=== PATIENT | male | born 1945 | race Asian ===

== ENCOUNTER 2019-06-02 12:32 | Emergency (ER) | payer MEDICARE, BC ==
[~2019-06-02] VITALS: Ht 170.2 cm; Wt 104.3 kg
--- NOTE | 2019-06-02 12:50 | NUR ---
ED Nurse Note: Pt walked in from home d/t mechanical fall on an escalator and hit his head. Pt says he did not lose consciousness before or after the fall. Family with patient. Pt ambulatory with cane with steady gait/ A+Ox4. Paramedics saw him at the scene and dressed his head wound, but his brought him to the ED to be checked out. Pt denies numbness or tingling. Respirations even and unlabored on room air. Vitals stable as documented.
[2019-06-02 13:15] VITALS: BP 159/68
--- NOTE | 2019-06-02 13:38 | Emergency Room Report ---
History of Present Illness General Chief Complaint: Head Injury Source: Patient, Family Member (Mary Flores NNahid P.A.) Present Illness HPI 73-year-old male with history of hypertension, diabetes, high cholesterol, on Plavix, presents with head injury onset 1130 this morning. He reports he lost balance coming down the escalator and fell backwards and sustained a small laceration to the back of his head. Bleeding controlled. Denies any LOC, vomiting, dizziness. Denies any pain at this time. Denies any other injuries. (Mary Flores N. P.A.) Allergies: Coded Allergies: No Known Allergies (Unverified , 06/02/19) Patient History Past Medical History: see triage record Reviewed Nursing Documentation: PMH: Agreed; PSxH: Agreed (Mary Flores N. P.A.) Nursing Documentation-PMH Past Medical History: No History, Except For Hx Hypertension: Yes Hx Diabetes: Yes - kidney issues (Mary Flores N. P.A.) Review of Systems All Other Systems: negative except mentioned in HPI (Mary Flores N. P.A.) Physical Exam Vital Signs Date Time Temp Pulse Resp B/P (MAP) Pulse Ox O2 Delivery O2 Flow Rate FiO2 06/02/19 12:43 98.2 83 20 159/68 (98) 97 Room Air Sp02 EP Interpretation: reviewed, normal General Appearance: normal inspection, well appearing, no apparent distress, alert, GCS 15, non-toxic Head: other - superficial 1.5 cm laceration to the occipital scalp, bleeding controlled, no foreign bodies Eyes: bilateral eye normal inspection, bilateral eye PERRL, bilateral eye EOMI Neck: normal inspection, full range of motion, supple, thyroid normal, no meningismus, no bony tend Respiratory: chest non-tender, lungs clear, normal breath sounds, no respiratory distress Cardiovascular #1: normal peripheral pulses, regular rate, rhythm Musculoskeletal: normal inspection, normal range of motion, no calf tenderness , gait/station normal, non-tender Neurologic: alert, motor strength/tone normal, junior analyst III-XII nml as tested, oriented x3, sensory intact, speech normal Psychiatric: judgement/insight normal, mood/affect normal Skin: no rash, normal color, warm/dry Lymphatic: no adenopathy (Bensoussan,Mary N. P.A.) Procedures Laceration/Wound Repair Laceration/Wound Repair : Consent: Verbal Wound Location: head Wound's Depth, Shape: superficial Wound Length (cm): 1 Wound Explored: clean Irrigated w/ Saline (ccs): 250 Betadine Prep?: Yes Anesthesia: Lidocaine w/ Epi Volume Anesthetic (ccs): 3 Wound Repaired With: umang Number of Sutures: 3 Patient Tolerated: Well Complications: None (Tin Pacheco MD) Medical Decision Making PA Attestation Dr. Pacheco is my supervising physician whom patient management and care has been discussed with. (Mary Flores N. P.A.) Diagnostic Impression: Primary Impression: Acute head injury Qualified Codes: S09.90XA - Unspecified injury of head, initial encounter Additional Impression: Laceration ER Course Pt. presents to the ED c/o head injury Ddx considered but are not limited to intracranial hemorrhage, hematoma, laceration, abrasion Vital signs: are WNL, pt. is afebrile H&PE are most consistent with laceration ORDERS: CT brain and C-spine normal ED INTERVENTIONS: Laceration irrigated and repaired with umang. DISCHARGE: At this time pt. is stable for d/c to home. Will provide printed patient care instructions, and any necessary prescriptions. Care plan and follow up instructions have been discussed with the patient prior to discharge. (Mary Flores N. P.A.) CT/MRI/US Diagnostic Results CT/MRI/US Diagnostic Results : Impression Head CT, interpreted by radiologist: No acute intracranial bleed, mass effect or edema. Mild atrophy of the brain. Nonspecific white matter hypoattenuation probably due to chronic small vessel disease. Left scalp contusion C-spine CT, interpreted by radiologist: No acute injury appreciated. Degenerative changes of cervical spine as described above. Atherosclerotic vascular disease (Mary Flores N. P.A.) Last Vital Signs Date Time Temp Pulse Resp B/P (MAP) Pulse Ox O2 Delivery O2 Flow Rate FiO2 06/02/19 13:15 98.2 85 20 159/68 97 Room Air (Mary Flores N. P.A.) Disposition: HOME, SELF-CARE Condition: Stable Referrals: [facility] Patient Instructions: Head Injury, Adult, [id number], Laceration Care, Adult , [id number] Additional Instructions: The patient was provided with discharge instructions, notified to follow-up with a primary care doctor and or specialist in the next 24-48 hours, and to return to the ED if they have worsening of their symptoms. Please note that this report is being documented using DRAGON technology. This can lead to erroneous entry secondary to incorrect interpretation by the dictating instrument. PLEASE HAVE STABLES REMOVED 06/12/2019 Mary Flores Jun 02, 2019 13:38 Tin Pacheco MD Jun 02, 2019 15:01
[2019-06-02] MEDS ORDERED: Tetanus-Diphtheria Toxoid IM ONE (13:45)
--- NOTE | 2019-06-02 14:11 | NUR ---
ED Nurse Note: Pt in CT
--- NOTE | 2019-06-02 14:41 | Diagnostic Imaging Report ---
Indication: Cervical trauma/pain. Technique: Continuous helical imaging of the cervical spine was obtained transaxially from the skull base to the upper thoracic spine. 2-D coronal and sagittal reformatted images were obtained. Automatic Exposure Control was utilized. Total Dose length Product (DLP): 608.[address] Dose Index Volume (CTDIvol): 20 mGy Comparison: None Findings: No acute fracture is identified. Multilevel uncovertebral and facet arthropathy demonstrated. This results in some narrowing of the neural foramen bilaterally which is seen at multiple levels. The most pronounced narrowing is at C5-6 and C6-7. These 2 levels also notable for moderate narrowing of intervertebral disc with circumferential endplate osteophytes. Alignment is normal. The bones are osteopenic. There is no soft tissue swelling. Moderate the calcification of both carotid and vertebral arteries noted throughout the neck. IMPRESSION: No acute injury appreciated. Degenerative changes of cervical spine as described above. Atherosclerotic vascular disease The CT scanner at [facility] is accredited by the [employer] and the scans are performed using dose optimization techniques as appropriate to a performed exam including Automatic Exposure control.
--- NOTE | 2019-06-02 14:42 | Diagnostic Imaging Report ---
Indication: Headache. Head trauma Technique: Contiguous 5 mm thick transaxial imaging of the head obtained in a Siemens Sensation [address] scanner. Soft tissue and bone windows generated. Automatic Exposure Control was utilized. Total Dose length Product (DLP): 1036.[address] Dose Index Volume (CTDIvol): 43 mGy Comparison: none Findings: There is mild prominence of the ventricles, basal cisterns, and cerebral sulci consistent with atrophy. Mild, nonspecific, white matter hypoattenuation is noted throughout the brain consistent with chronic small vessel disease. There is no midline shift, edema, acute hemorrhage, mass effect, or abnormal extra-axial fluid collections. Bones are unremarkable. There is soft tissue scalp swelling over the left posterior parietal region. Impression: No acute intracranial bleed, mass effect or edema. Mild atrophy of the brain. Nonspecific white matter hypoattenuation probably due to chronic small vessel disease. Left scalp contusion The CT scanner at [facility] is accredited by the [employer] and the scans are performed using dose optimization techniques as appropriate to a performed exam including Automatic Exposure control.
[2019-06-02 15:29] VITALS: BP 152/69
--- NOTE | 2019-06-02 15:29 | NUR ---
ER DISCHARGE NOTE: Patient is cleared to be discharged per ERMD, pt is aox4, on room air, with stable vital signs. pt was given dc instructions, pt was able to verbalize understanding, pt id bandremoved. pt is able to ambulate with steady gait using a cane. pt took all belongings.
== END 2019-06-02 15:29 | disposition home or self-care (01) ==
LOC: EMR 14:28
DX: S09.90XA Unspecified injury of head, initial encounter (principal); S01.01XA Laceration without foreign body of scalp, initial encounter; E11.9 Type 2 diabetes mellitus without complications; I10 Essential (primary) hypertension; E78.00 Pure hypercholesterolemia, unspecified; Z79.01 Long term (current) use of anticoagulants; W19.XXXA Unspecified fall, initial encounter; Y92.9 Unspecified place or not applicable; I70.90 Unspecified atherosclerosis; Z23 Encounter for immunization
CPT/HCPCS: 70450; 72125; 90471; 90714; 99284

== ENCOUNTER 2019-06-15 19:52 | Inpatient (IN) | payer MEDICARE, BC ==
[~2019-06-15] VITALS: Ht 165.1 cm; Wt 110.2 kg
[2019-06-15 19:55] VITALS: BP 112/82
--- NOTE | 2019-06-15 19:55 | NUR ---
ED Nurse Note: Pt brought into ED from home by CATHLEEN RA 68 for c/o weakness onset [employer]ETING [employer]. Per EMS, pt was hypotensive with BP of 86/55 on scene. IV access initiated in the field and pt given 250ml NS by LAFD. Pt also reports feeling dizzy. Pt is aaox4, breathing is fast and labored on RA at this time. Pt connected to compliance monitor and placed in gown. Pt BP is 112/82 upon compliance monitor placement. Will continue to monitor.
[2019-06-15] MEDS ORDERED: FOLIC ACID1 MG ORAL (19:56)
[2019-06-15] MEDS ORDERED: CLOPIDOGREL75 MG ORAL (19:56)
[2019-06-15] MEDS ORDERED: SIMVASTATIN5 MG ORAL (19:57)
[2019-06-15] MEDS ORDERED: CATAPRES0.2 MG ORAL (19:59)
[2019-06-15] MEDS ORDERED: LISINOPRIL20 MG ORAL (19:59)
[2019-06-15] MEDS ORDERED: ACARBOSE50 MG ORAL (19:59)
[2019-06-15] MEDS ORDERED: AMLODIPINE BESY10 MG ORAL (19:59)
--- NOTE | 2019-06-15 19:59 | Emergency Room Report ---
History of Present Illness General Chief Complaint: Generalized Weakness Source: Patient, EMS Present Illness HPI Patient brought by EMS. He has been having nausea vomiting and diarrhea for the last few days. He is a insulin-dependent diabetic on metformin also. He has been taking his Lantus. He denies abdominal pain at this time. Paramedics found him with blood pressure of 86 in the field. They gave him of 250 fluid bolus and his blood pressure opal to 125 systolic. His glucose was also 124. The diarrhea has been brown without any blood. He is never had this problem before. The patient smokes. He has heard himself wheezing. He denies productive cough. No fevers, chills, sore throat, chest pain, palpitations, dysuria, joint pain, rashes, depression, anxiety, visual changes, dizziness, headache. Patient with history of hypertension and diabetes on Plavix. Patient sustained head injury June 02 with laceration to scalp. There was no syncope. CT of the head and C-spine were performed. 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 Reviewed Nursing Documentation: PMH: Agreed; PSxH: Agreed Nursing Documentation-PMH Hx Hypertension: Yes Hx Diabetes: Yes Review of Systems All Other Systems: negative except mentioned in HPI Physical Exam Vital Signs Date Time Temp Pulse Resp B/P (MAP) Pulse Ox O2 Delivery O2 Flow Rate FiO2 06/15/19 19:44 98.2 120 16 123/35 (64) 98 Room Air Sp02 EP Interpretation: reviewed, normal General Appearance: mild distress, obese Eyes: bilateral eye normal inspection, bilateral eye PERRL, bilateral eye EOMI ENT: dry mucus membranes Neck: full range of motion, supple, no meningismus Respiratory: lungs clear, decreased breath sounds Cardiovascular #1: tachycardia, edema Cardiovascular #2: 2+ radial (R) Gastrointestinal: non tender, soft, no guarding, decreased bowel sounds, overweight Genitourinary: no CVA tenderness Musculoskeletal: back normal, normal range of motion, no calf tenderness Neurologic: alert, motor strength/tone normal, oriented - X2, sensory intact, speech normal Psychiatric: mood/affect normal Skin: warm/dry, other - Sallow Procedures Critical Care Time Critical Care Time Total Critical Care Time: 60 min bedside evaluation and treatment excludes procedures (EKG). Reason for critical care: Hypotension, sepsis, hypoxia, renal failure, pancreatitis, elevated troponin Possible complications: hypotension, hypertension, [place], shock, arrhythmias, metabolic acidosis, end organ damage, respiratory failure. Interventions: Breathing treatments, fluid resuscitation, repeat evaluations, discussion with family, discussion with admitting physician, aspirin, antibiotic administration Course: Patient presented with vomiting and diarrhea with hypotension in the field. Immediate evaluation for possible sepsis. Fluid resuscitation begun. Hypoxia addressed with breathing treatments and oxygen. Positive troponin treated with aspirin. Blood pressure dropped again and fluid bolus administered. Elevated lactic acid treated with remainder of 30 mill per kilogram bolus. Prior to her lab after chest x-ray obtain antibiotics begun to cover abdominal source. Sepsis reevaluation. Discussion with family. Discussion with admitting physician. Elevating level of care. CO2 monitoring begun. Consultations: nursing staff, EMS, family, respiratory therapy Performed by: Dr. Danielson Tolerated well condition = critical Medical Decision Making Diagnostic Impression: Primary Impression: Sepsis Qualified Codes: A41.9 - Sepsis, unspecified organism; R65.21 - Severe sepsis with septic shock; N17.9 - Acute kidney failure, unspecified Additional Impressions: Acute pancreatitis Qualified Codes: K85.90 - Acute pancreatitis without necrosis or infection, unspecified Renal failure Qualified Codes: N17.9 - Acute kidney failure, unspecified Transient hypotension Hypoxia Left upper quadrant abdominal mass Elevated troponin ER Course Diabetic patient presents with hypotension in the field with nausea vomiting diarrhea. Differential includes sepsis, diabetic ketoacidosis, gastritis, gastroenteritis, occult infection, pancreatitis amongst others. Evaluation with EKG, chest x-ray, abdomen film and labs. Treatment with IV hydration, Reglan and Benadryl. Patient is obviously volume depleted with dry mucous membranes. Oxygen saturation 88%. Lungs are clear. Oxygen begun. Breathing treatment ordered. Blood pressure 89. Bolus has not begun. Blood sugar 94 Tachypneic and tachycardic. Probably septic. Antibiotics ordered. CXR no infiltrate. 2039 labs still pending. Minimally elevated troponin. Low dose aspirin ordered. Lactic acid elevated. Antibiotics already ordered. Bolus infusing added for 30 ml/kg. Patient BP better. Discussed with family. Sepsis reevaluation. Patient demonstrates fluid responsive sepsis. Upgrade to ICU. Discussed with admitting physician. CO2 monitoring ordered. Patient improved. Less agitated. Good capillary refill. Heart rate improved. Abdomen still soft. CT recorded below. Laboratory Tests Test 06/15/19 19:53 06/15/19 20:05 06/15/19 21:48 06/15/19 23:05 Venous Blood pH 7.348 Venous Blood Partial Pressure CO2 35.6 Venous Blood Partial Pressure O2 < 45.3 Venous Blood HCO3 19.1 Venous Blood Total Carbon Dioxide 35.6 Venous Blood Base Excess -5.7 Venous Blood Carboxyhemoglobin 2.1 % (0.5-1.5) H Methemoglobin 0.5 White Blood Count 4.1 K/UL (4.8-10.8) L Red Blood Count 4.10 M/UL (4.70-6.10) L Hemoglobin 12.1 G/DL (14.2-18.0) L Hematocrit 35.0 % (42.0-52.0) L Mean Corpuscular Volume 85 FL (80-99) Mean Corpuscular Hemoglobin 29.5 PG (27.0-31.0) Mean Corpuscular Hemoglobin Concent 34.6 G/DL (32.0-36.0) Red Cell Distribution Width 12.7 % (11.6-14.8) Platelet Count 187 K/UL (150-450) Mean Platelet Volume 8.5 FL (6.5-10.1) Neutrophils (%) (Auto) % (45.0-75.0) Lymphocytes (%) (Auto) % (20.0-45.0) Monocytes (%) (Auto) % (1.0-10.0) Eosinophils (%) (Auto) % (0.0-3.0) Basophils (%) (Auto) % (0.0-2.0) Prothrombin Time 12.0 SEC (9.30-11.50) H Prothrombin Time INR 1.1 (0.9-1.1) Activated Partial Thromboplast Time 29 SEC (23-33) Sodium Level 141 MMOL/L (136-145) Potassium Level 3.1 MMOL/L (3.5-5.1) L Chloride Level 107 MMOL/L (98-107) Carbon Dioxide Level 18 MMOL/L (21-32) L Anion Gap 16 mmol/L (5-15) H Blood Urea Nitrogen 33 mg/dL (7-18) H Creatinine 2.1 MG/DL (0.55-1.30) H Estimate Glomerular Filtration Rate 31.1 mL/min (>60) Glucose Level 108 MG/DL (74-106) H Lactic Acid Level 3.70 mmol/L (0.4-2.0) H 3.60 mmol/L (0.66-2.22) H Calcium Level 8.0 MG/DL (8.5-10.1) L Magnesium Level 1.4 MG/DL (1.8-2.4) L Total Bilirubin 0.5 MG/DL (0.2-1.0) Aspartate Amino Transferase (AST) 22 U/L (15-37) Alanine Aminotransferase (ALT) 24 U/L (12-78) Alkaline Phosphatase 109 U/L (46-116) Total Creatine Kinase 198 U/L (26-308) Troponin I 0.065 ng/mL (0.000-0.056) Total Protein 5.9 G/DL (6.4-8.2) L Albumin 2.0 G/DL (3.4-5.0) L Globulin 3.9 g/dL Albumin/Globulin Ratio 0.5 (1.0-2.7) L Triglycerides Level 48 MG/DL (30-150) Lipase 1013 U/L (73-393) H Urine Color [place] Urine Appearance Cloudy Urine pH 5 (4.5-8.0) Urine Specific [place] 1.020 (1.005-1.035) Urine Protein 4+ (NEGATIVE) H Urine Glucose (UA) 1+ (NEGATIVE) H Urine Ketones Negative (NEGATIVE) Urine Blood 4+ (NEGATIVE) H Urine Nitrite Negative (NEGATIVE) Urine Bilirubin Negative (NEGATIVE) Urine Ictotest Negative (NEGATIVE) Urine Urobilinogen Normal MG/DL (0.0-1.0) Urine Leukocyte Esterase 1+ (NEGATIVE) H Urine RBC 20-30 /HPF (0 - 0) H Urine WBC 5-10 /HPF (0 - 0) H Urine Squamous Epithelial Cells Few /LPF (NONE/OCC) Urine Amorphous Sediment Many /LPF (NONE) H Urine Bacteria Many /HPF (NONE) H Urine Granular Casts 0-2 /LPF (NONE) H Urine Random Sodium 33 mmol/L (20-110) Urine Creatinine 130.1 MG/DL (30.0-125.0) H EKG Diagnostic Results Rate: tachycardiac Rhythm: NSR ST Segments: no acute changes - Left axis deviation right bundle branch block LVH PVC nonspecific ST-T wave changes rate 124 Rhythm Strip Diag. Results EP Interpretation: yes Rhythm: other - Rate 124, sinus tachycardia with PVCs Chest X-Ray Diagnostic Results Chest X-Ray Diagnostic Results : Chest X-Ray Ordered: Yes # of Views/Limited/Complete: 1 View Indication: Other EP Interpretation: Yes Interpretation: no consolidation, no effusion, no pneumothorax Impression: No acute disease Electronically Signed by: Electronically signed by Paul Danielson MD CT/MRI/US Diagnostic Results CT/MRI/US Diagnostic Results : Imaging Test Ordered: Abdomen pelvis Impression There is a large cystic mass measuring 11 cm in the left upper quadrant. This may be arising from the stomach or the distal pancreas. Recommend characterization with contrast-enhanced CT or MRI for better characterization. Appears to be a neoplastic process. Mildly distended loops of proximal small bowel containing oral contrast. Diffusely fluid-filled large bowel. Correlate with ileus versus developing partial small bowel obstruction. Umbilical hernia containing a short segment of the small bowel without causing obstruction. No hydronephrosis or nephrolithiasis. Severe bladder wall thickening, correlate with cystitis versus under distention. Last Vital Signs Date Time Temp Pulse Resp B/P (MAP) Pulse Ox O2 Delivery O2 Flow Rate FiO2 06/16/19 00:05 98.5 114 25 117/63 95 Nasal Cannula 2.0 28 Status: improved Disposition: ADMITTED INPATIENT Condition: Critical Paul Danielson MD Jun 15, 2019 19:59
[2019-06-15 20:00] VITALS: BP 112/82
[2019-06-15] MEDS ORDERED: METFORMIN HCL500 M1 ORAL (20:00)
[2019-06-15] MEDS ORDERED: Omnipaque-300 100ml vial INJ PRN (20:00)
[2019-06-15] MEDS ORDERED: BAYER CHEWABLE81 MG PO (20:00)
[2019-06-15] MEDS ORDERED: LANTUS SOL100 UNIT/1 SUBQ (20:00)
[2019-06-15] MEDS ORDERED: DiphenhydrAMINE 50mg/ml Inj IVP ONE (20:00)
[2019-06-15] MEDS ORDERED: Metoclopramide 10mg/2ml Inj IVP ONE (20:00)
--- NOTE | 2019-06-15 20:00 | NUR ---
ED Nurse Note: Pt oxygen saturation dropped to 87% on RA. ERMD aware and placed pt on 2L oxygen via NC.
[2019-06-15] MEDS ORDERED: Solu-MEDROL 125mg Inj IVP ONE (20:15)
[2019-06-15] MEDS ORDERED: Albuterol/Ipratropium 3ml neb HHN ONE (20:15)
[2019-06-15 20:32] LABS: INR 1.1 (0.9-1.1)
--- NOTE | 2019-06-15 20:35 | NUR ---
ED Nurse Note: Pt is tachypenic with RR of 27, oxygen saturation is 97% on 2L via NC. ERMD bedside and aware. RT bedside to initiate breathing treatment, will continue to monitor. Pt states that his legs hurt and are bothering him.
[2019-06-15 20:45] VITALS: BP 133/74
[2019-06-15] MEDS ORDERED: Cefepime HCl 1 GM in D5W 55 ML IVPB ONE (20:45)
[2019-06-15 20:52] LABS: HEMOGLOBIN 12.1 G/DL (14.2-18.0); MEAN CORPUSCULAR VOLUME 85 FL (80-99); PLATELET COUNT 187 K/UL (150-450); RED CELL DISTRIBUTION WIDTH 12.7 % (11.6-14.8); WHITE BLOOD COUNT 4.1 K/UL (4.8-10.8)
[2019-06-15 20:54] LABS: ANION GAP 16 mmol/L (5-15); BLOOD UREA NITROGEN 33 mg/dL (7-18); CARBON DIOXIDE 18 MMOL/L (21-32); CHLORIDE 107 MMOL/L (98-107); CREATININE 2.1 MG/DL (0.55-1.30); POTASSIUM 3.1 MMOL/L (3.5-5.1); SODIUM 141 MMOL/L (136-145)
[2019-06-15 20:59] LABS: ALANINE AMINOTRANSFERASE 24 U/L (12-78); ALBUMIN/GLOBULIN RATIO 0.5 (1.0-2.7); ALKALINE PHOSPHATASE 109 U/L (46-116); ASPARTATE AMINO TRANSFERASE 22 U/L (15-37); BILIRUBIN,TOTAL 0.5 MG/DL (0.2-1.0); CREATINE KINASE 198 U/L (26-308)
[2019-06-15] MEDS ORDERED: Aspirin Baby 81mg ORAL ONE (21:30)
[2019-06-15 22:09] LABS: APPEARANCE,URINE CLOUDY; BILIRUBIN, URINE NEGATIVE (NEGATIVE); COLOR,URINE AMBER; GLUCOSE, URINE (UA) 1+ (NEGATIVE); KETONES,URINE NEGATIVE (NEGATIVE); LEUKOCYTE ESTERASE ,URINE 1+ (NEGATIVE); NITRITE,URINE NEGATIVE (NEGATIVE); PH,URINE 5 (4.5-8.0); PROTEIN,URINE 4+ (NEGATIVE); UROBILINOGEN,URINE NORMAL MG/DL (0.0-1.0)
[2019-06-15] MEDS ORDERED: Sodium Chloride 3,100 ML IVLG ONE (22:15)
[2019-06-15 22:30] VITALS: BP 125/63
--- NOTE | 2019-06-15 22:30 | NUR ---
ED Nurse Note: Pt sleeping at this time. No acute distress noted. Pt breathing is unlabored at this time. Will continue to monitor. ERMD aware of vital signs as charted.
[2019-06-15] MEDS ORDERED: Milk of Magnesia 30ml Ud ORAL PRN (22:45)
--- NOTE | 2019-06-15 23:38 | Diagnostic Imaging Report ---
Indication: Abdominal pain and vomiting Technique: Spiral acquisitions obtained through the abdomen and pelvis. Patient given oral contrast. No IV contrast utilized, per referring physician request.. Multiplanar reconstructions were generated. Total dose length product 773 mGycm. CTDIvol(s) third mGy. Dose reduction achieved using automated exposure control Comparison: None Findings: There is a large somewhat thick-walled unilocular cystic mass in the left upper quadrant, appearing to be arising from the tail of pancreas. This measures 12 cm in diameter. It is also adjacent and contiguous with the greater curvature the stomach. The pancreas itself appears atrophic. Calcifications within the pancreas appear to be calcifications of the splenic artery. The appendix is normal. There are colonic diverticula. No evidence of diverticulitis. Proximal small bowel loops are somewhat prominent in caliber, and contrast has only traversed a small portion of the small bowel. There is a small ventral hernia which contains a small loop of small bowel. No definite change in small bowel caliber appears to be present related to the hernia. No free or loculated intraperitoneal gas or fluid is evident. Distal esophagus demonstrates mild wall thickening and possibly a small hiatal hernia. The stomach and duodenum are unremarkable other than the findings reported above. Lack of IV contrast limits assessment of the solid organs. The gallbladder has been removed. The liver, spleen, adrenals are unremarkable. The right kidney demonstrates multiple fluid attenuation cysts. Both kidneys demonstrate considerable perinephric fat stranding. No renal or ureteral calculi, hydronephrosis, or hydroureter. The bladder is under distended. Wall appears mildly thickened, probably artifact of under distention. The prostate is unremarkable. No pelvic mass or adenopathy. The bones are unremarkable. The included lung bases demonstrate considerable interstitial and airspace consolidation. The heart is enlarged. Impression: Unilocular left upper quadrant cystic mass adjacent to the tail of pancreas and the greater curvature of the stomach. Favor pancreatic pseudocyst, particularly in view of evidence of pancreatic atrophy. However, cystic neoplasm of pancreatic, gastric, or other origin also possible. Consider contrast MRI for better characterization Small ventral hernia containing a single small loop of small bowel, no definite obstruction or strangulation related to such Mildly distended proximal small bowel with slow forward transit of ingested contrast. Suspect ileus or enteritis, although early/partial small bowel obstruction also possible. Correlate with clinical findings Mild distal soft tissue wall thickening, esophagitis possible. Correlate with clinical findings Bilateral basilar pulmonary parenchymal infiltrates versus edema, fairly extensive Cardiomegaly. Apparent bladder wall thickening. Probably an artifact of lack of distention, but cystitis also possible Nonspecific bilateral perinephric fat stranding. Suspect chronic although acute renal inflammation also possible Other findings as noted, including colonic diverticulosis, no evidence of prior cholecystectomy This essentially agrees with the preliminary interpretation provided overnight by [facility] teleradiology service, with some minor variation. The CT scanner at [facility] is accredited by the [employer] and the scans are performed using protocols designed to limit radiation exposure to as low as reasonably achievable to attain images of sufficient resolution adequate for diagnostic evaluation.
--- NOTE | 2019-06-15 23:50 | NUR ---
ED Nurse Note: Report given to GANGA Fritz.
[2019-06-16] VITALS (26 sets, daily range): BP systolic 77–125; BP diastolic 44–79
--- NOTE | 2019-06-16 00:05 | NUR ---
ED Nurse Note: Pt stable for transfer to unit at this time per ERMD. Pt is aaox4, breathing is normal and unlabored, oxygen saturation is 95% on 2L oxygen via NC. No acute distress noted. Pt speaking in full sentences. Vital signs stable for patient as charted, ERMD aware. IV on L AC is patent and intact. Pt taken to unit via gurney by RN and petey, connected to hall monitor. Pt belongings sent with pt.
--- NOTE | 2019-06-16 00:10 | NUR ---
NURSE NOTES: Received reported from GANGA Leger. Pt admitted from ER. Pt is awake and alert and forgetful. On O2 2L via nasal cannula and SaO2 95% noted. HR: 115's, BP: 123/68mmHg. IV site intact and no sign of infiltration noted. Applied pals specialist and noted ST. Cleaned Pt and applied lotion and cream. Checked belongings. Given admission instruction. Skin is intact except hyperpigmentation on Rt. hip area. Denied pain at this time. Placed fall precaution. Will continue to care plan. Dr. Whitman aware Pt's lab result with K: 3.1, M.4 troponin: 0.065, Lactic acid: 3.7. Get new order received from Dr. Whitman and will carried out. Repositioned Pt and applied condom cath. Placed fall precaution. Will continue to care plan.
--- NOTE | 2019-06-16 00:19 | Pulmonolgy Critical Care Note ---
Critical Care - Asmt/Plan Assessment/Plan: Pulmonary CCM Consultation HPI Patient is a 73 year old man admitted complaining of dizziness, has had nausea/ vomiting and diarrhea for the last few days. He is a insulin-dependent diabetic on metformin, Lantus. He denies chest/abdominal pain. Noted to be hypotensive by paramedics, his glucose was also 124. Had evidence of UTI, Pancreatitis in the ED, BP responded to IVF 30 ml/Kg The patient smokes. 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 He denies productive cough, no fevers. 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 All Other Systems: negative except mentioned in HPI, no travel history Physical Exam Vital Signs Noted Date Time Temp Pulse Resp B/P (MAP) Pulse Ox O2 Delivery O2 Flow Rate FiO2 06/15/19 19:44 98.2 120 16 123/35 (64) 98 Room Air General: Obese, Alert interactive, no distress HENT: dry mucus membranes, no LN, no mass Chest: CTAB Heart: HS1, HS2, RRR Abdomen: Obese, soft, NT Extremities: Well perfused, no edema, no rash 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: Orientated x 4, no focal signs Impression: UTI GNR Sepsis Bibasilar atelectasis Hypoxic Respiratory Failure Acute pancreatitis Recent Diarrhea,N/V Large cystic pancreatic mass Chronic renal insufficiency Hypotension, responsive to fluids initially Lactic Acidosis improving Elevated Troponin Hypoxia Type 2 Insulin requiring Diabetes H/o Hypertension Previous Cholecystectomy Plan IVF - maintenance and PRN,received 30ml/Kg NS Central line Pressors PRN Supplement K/Mg IV Antibiotics Await cultures ISS Q6 Oxygen BiPAP PRN Breathing treatments PRN PPX Serial Troponin Echocardiogram ASA Abdominal US Trend Lactate NPO Will need GI referral, investigation of Pancreatic mass Will need Cardiology referral - elevated Troponin, Hypotension Will need Renal referral - ZARINA on background of CKD Consider ID referral - UTI/sepsis EKG: Rate: tachycardiac Rhythm: NSR ST Segments: no acute changes - Left axis deviation right bundle branch block LVH PVC nonspecific ST-T wave changes rate 124 CXR: Impression: Basilar atelectasis Note that there is extensive parenchymal changes demonstrated on subsequent CT scan are much less apparent on plain radiograph CT Abdomen: CT ABDOMEN + PELVIS With Contrast: There is a large cystic mass measuring 11 cm in the left upper quadrant. This may be arising from the stomach or the distal pancreas. Recommend characterization with contrast-enhanced CT or MRI for better characterization. Appears to be a neoplastic process. Mildly distended loops of proximal small bowel containing oral contrast. Diffusely fluid-filled large bowel. Correlate with ileus versus developing partial small bowel obstruction. Umbilical hernia containing a short segment of the small bowel without causing obstruction. No hydronephrosis or nephrolithiasis. Severe bladder wall thickening, correlate with cystitis versus under distention. ICU time 75 minutes, 45 minutes care co-ordination Critical Care - Objective Last 24 Hour Vital Signs Date Time Temp Pulse Resp B/P (MAP) Pulse Ox O2 Delivery O2 Flow Rate FiO2 06/15/19 22:57 95 Nasal Cannula 2.0 28 06/15/19 22:30 98.2 111 24 125/63 92 Nasal Cannula 2.0 28 06/15/19 20:45 98.2 135 23 133/74 99 Nasal Cannula 2.0 28 06/15/19 20:38 120 24 98 Nasal Cannula 2.0 28 114 24 95 06/15/19 20:00 98.2 125 25 112/82 87 Nasal Cannula 2.0 06/15/19 19:55 98.2 125 16 112/82 98 Room Air 06/15/19 19:44 98.2 120 16 123/35 (64) 98 Room Air Accucheck: 95 Critical Care - Subjective ROS Limited/Unobtainable: No Condition: critical IV Access: peripheral EKG Rhythm: Sinus Tachycardia FI02: 28 Sputum Amount: None I&O: Intake and Output 06/15/19 06/16/19 19:00 07:00 Intake Total 50 ml Output Total 200 ml Balance -150 ml Intake Oral 50 ml Output Urine Total 200 ml Paul Whitman MD Jun 16, 2019 00:19
[2019-06-16] MEDS ORDERED: Albuterol/Ipratropium 3ml neb HHN PRN (01:00)
[2019-06-16] MEDS ORDERED: D5NS 1,000 ML IV ONE (01:00)
--- NOTE | 2019-06-16 02:00 | NUR ---
NURSE NOTES: Pt is sleeping on the bed and no sign of acute distress noted. V/S stable. SaO2 97% with O2 4L via nasal cannula. Repositioned. Pt. removed condom cath. Reapplied condom cath and remind Pt do not remove condom cath and Pt verbally understand at this time. Placed fall precaution. Will continue to monitor any change of condition.
--- NOTE | 2019-06-16 03:08 | NUR ---
NURSE NOTES: Pt is resting on the bed and awake and slight agitated and noted SOB with tachypnea. On O2 4L via nasal cannuala and Sao2 90% noted. RT applied venturi mask FiO2 40% 8L and SaO2 95% noted. Denied pain at this time. Placed fall precaution. Will continue to monitor any change of condition.
--- NOTE | 2019-06-16 04:32 | NUR ---
NURSE NOTES: Pt is resting on the bed and awake and confused and agitated. Noted tachypnea; 34/min and Desaturated 86% with Venturi mask FiO2 50%. Collected and ABG. Awaiting result. Will continue to monitor any change of condition.
--- NOTE | 2019-06-16 04:47 | NUR ---
NURSE NOTES: Pt is resting on the bed and awake and forgetful and agitated. Pt has on Veturi mask FiO2 50%. Get ABG result and notified to Dr. Whitman and get new order received with BIPAP.
[2019-06-16] MEDS ORDERED: Ipratropium 0.02% Inh Soln 2.5ml UD HHN PRN (04:50)
[2019-06-16] MEDS: Hydromorphone 0.5mg/0.5ml inj IVP PRN ×2 (04:56→12:17)
--- NOTE | 2019-06-16 04:57 | NUR ---
RESPIRATORY NOTE: Pt placed on BiPAP post ABG draw d/t SOB/desaturation. Pt now on BiPAP /, backup rate 14, 50%. Pt on a Facial mask, skin intact, no redness/breakdowns noted. Foam tape applied on pt's nosebridge/cheeks/chin to prevent pt from self-extubation. Pt is alert/awake, follows commands. B/S joe. clear/diminished, nonproductive, dry, cough. BiPAP plugged into red outlet, alarms on & audible. Pt now comfortable, tolerating well. Will continue to monitor pt. Addendum: 06/18/19 at 2328 by RUTH ANN FRANCO RT *Foam tape applied on pt's nosebridge/cheeks/chin to prevent pt from mask irritations.
[2019-06-16] MEDS: NovoLOG Insulin Flexpen SUBQ SCH ×3 (06:00→18:00)
[2019-06-16] MEDS ORDERED: NovoLOG Insulin Flexpen SUBQ SCH (06:30)
[2019-06-16 06:34] LABS: HEMATOCRIT 33.3 % (42.0-52.0); HEMOGLOBIN 11.4 G/DL (14.2-18.0); MEAN CORPUSCULAR VOLUME 87 FL (80-99); PLATELET COUNT 134 K/UL (150-450); RED BLOOD COUNT 3.83 M/UL (4.70-6.10); RED CELL DISTRIBUTION WIDTH 12.9 % (11.6-14.8); WHITE BLOOD COUNT 18.8 K/UL (4.8-10.8)
--- NOTE | 2019-06-16 06:38 | NUR ---
NURSE NOTES: Noted BP 77/51mmHg. On running with D5wNS @ 50cc/hr. Pt is awake and confused but able to verbal response. On BiPAP 12/5 FiO2 50% and SaO2 100% noted. Denied pain at this time. Notified to Dr. Whitman and new order received. Will continue to monitor any change of condition.
[2019-06-16 06:53] LABS: ALANINE AMINOTRANSFERASE 42 U/L (12-78); ALBUMIN 1.8 G/DL (3.4-5.0); ALKALINE PHOSPHATASE 61 U/L (46-116); ANION GAP 13 mmol/L (5-15); ASPARTATE AMINO TRANSFERASE 129 U/L (15-37); BILIRUBIN,DIRECT 0.2 MG/DL (0.0-0.3); BILIRUBIN,TOTAL 0.5 MG/DL (0.2-1.0); BLOOD UREA NITROGEN 36 mg/dL (7-18); CALCIUM 7.5 MG/DL (8.5-10.1); CARBON DIOXIDE 21 MMOL/L (21-32); CHLORIDE 108 MMOL/L (98-107); CREATININE 2.5 MG/DL (0.55-1.30); POTASSIUM 3.5 MMOL/L (3.5-5.1); SODIUM 142 MMOL/L (136-145)
--- NOTE | 2019-06-16 07:30 | NUR ---
HAND-OFF: Report given to GANGA Moore. Pt is resting on the bed and on BIPAP and SaO2 100% noted. Dr. Graf visited and assessed Pt. On running with D5wNS @ 50cc, N/S @100cc and Albumin 25% @ 50cc/hr running. Endorsed incoming nurse regarding PICC insertion and Neosynephrine drip and verbally understand.
--- NOTE | 2019-06-16 07:31 | NUR ---
NURSE NOTES: Received patient from GANGA Fritz. Patient alert to name and place but confused to time and purpose. Patient restless and moving around in the bed in an effort to get more comfortable. Patient denies distress at this time. Patient on BiPAP 12/5 with 50% FiO2. Patient tolerating with no distress and SPO2 100% and high RR of 30. Patient NPO. Patient has order for contreras but is incontinent at this time. Patient has left hand 20 gauge peripheral IV, left AC 20 gauge peripheral IV. Both patent, asymptomatic, and flushed at this time. Patient has D5NS at 50mL/hr and normal saline running at 100mL/hr. Patient has an order for PICC line insertion as patient blood pressure was in the 80s systolic overnight. NO consent signed at this time. Patient blood pressure within normal limits. Will monitor and administer phenylephrine per order if necessary. Patient Troponin elevated. Will continue to monitor and notify MD. Patient Lactic tranding down. Will continue to order lab draws per protocol until lactic below 2. Patient has several tests ordered for this morning. Will follow up. Bed in low position with bed alarm on and call light in reach. Patient repositioned and oral care done. Will continue to monitor, insert contreras, follow up with ultrasound, follow up with PICC line team, get consent for PICC line from of patient.
--- NOTE | 2019-06-16 08:00 | NUR ---
NURSE NOTES: Notified Dr Graf regarding Troponin result of 0.348. No new orders received.
[2019-06-16] MEDS: Phenylephrine 50 MG in D5W 245 ML IV SCH (08:30)
[2019-06-16] MEDS: Aspirin Baby 81mg NG SCH (08:59)
[2019-06-16] MEDS: Docusate 100mg cap ORAL SCH ×2 (09:00→21:00)
[2019-06-16] MEDS: Pantoprazole Inj IVP SCH (09:00)
[2019-06-16] MEDS ORDERED: Cefepime HCl 1 GM in D5W 55 ML IVPB SCH (09:00)
[2019-06-16] MEDS ORDERED: Heparin 5000 units/ml inj SUBQ SCH (09:00)
--- NOTE | 2019-06-16 09:42 | Diagnostic Imaging Report ---
Indication: Abdominal pain Technique: Supine view of the abdomen Comparison: none Findings: Bowel gas pattern is unremarkable. No masses or unusual calcifications. There is parenchymal disease at the lung bases. There are degenerative changes of the lumbar spine. Impression: No acute process
--- NOTE | 2019-06-16 09:44 | Diagnostic Imaging Report ---
Indication: Chest pain Technique: One view of the chest Comparison: none Findings: Inspiration is suboptimal. The heart is enlarged. There are bilateral basilar atelectatic changes. There are degenerative changes the right shoulder Impression: Basilar atelectasis Note that there is extensive parenchymal changes demonstrated on subsequent CT scan are much less apparent on plain radiograph
--- NOTE | 2019-06-16 11:01 | NUR ---
NURSE NOTES: Notified Dr Whitman regarding ABG result via telephone call. Received order for repeat ABG at 1400, blood culture, urine culture, venous duplex, heparin 5000units SQ Q 12 hours, discontinue duo-neb respiratory treatment, and continue normal saline IV fluid for 6 more hours. All orders read back, verified, and placed.
--- NOTE | 2019-06-16 11:07 | Consultation ---
History of Present Illness General Date patient seen: Jun 16, 2019 Chief Complaint: Generalized Weakness Present Illness HPI This is a 73 year old male with past medical history signficant for insulin dependent DM, hypertension, possible CVA on plavix brought by EMS with chief nausea vomiting and diarrhea for the last few days. Paramedics found him with blood pressure of 86 in the field. They gave him of 250 fluid bolus and his blood pressure opal to 125 systolic. His glucose was also 124. The diarrhea has been brown without any blood. He is never had this problem before.The patient smokes. He has heard himself wheezing. He denies productive cough. patient seen and examined in the ICU. he is currently on bipap. Further history limited due to clinical condition. Allergies: Coded Allergies: No Known Allergies (Unverified , 06/02/19) Medication History Scheduled Acarbose* (Precose*), 50 MG ORAL THREE TIMES A DAY, (Reported) Amlodipine Besylate* (Amlodipine Besylate*), 10 MG ORAL DAILY, (Reported) Clonidine Hcl* (Catapres*), 0.2 MG ORAL Q6HR, (Reported) Clopidogrel* (Clopidogrel*), 75 MG ORAL DAILY, (Reported) Folic Acid* (Folic Acid*), 1 MG ORAL DAILY, (Reported) Insulin Glargine (Lantus), 0 SUBQ BEDTIME, (Reported) Lisinopril (Lisinopril*), 40 MG ORAL DAILY, (Reported) Metformin Hcl* (Metformin Hcl*), 500 MG ORAL TWICE A DAY, (Reported) Simvastatin (Zocor), 5 MG ORAL BEDTIME, (Reported) Miscellaneous Medications Aspirin (Court Chewable), 81 MG PO, (Reported) Patient History Healthcare decision maker Resuscitation status Full Code Advanced Directive on File Physical Exam General Appearance: lethargic, other - on bipap Lines, tubes and drains: peripheral HEENT: normocephalic, atraumatic Neck: non-tender, normal alignment Respiratory/Chest: chest wall non-tender, lungs clear, normal breath sounds Cardiovascular/Chest: normal rate, regular rhythm Abdomen: normal bowel sounds, non tender, soft Extremities: non-tender, normal inspection Skin Exam: normal pigmentation, no diaphoresis Last 24 Hour Vital Signs Date Time Temp Pulse Resp B/P (MAP) Pulse Ox O2 Delivery O2 Flow Rate FiO2 06/16/19 08:55 117 36 94 50 06/16/19 08:30 114 129/53 06/16/19 07:23 106 13 100 Bi-Pap 50 06/16/19 07:22 100 Bi-Pap 50 06/16/19 07:21 105 30 100 50 06/16/19 07:00 102 21 80/49 (59) 99 06/16/19 06:45 103 7 85/52 (63) 100 06/16/19 06:30 103 9 77/51 (60) 100 06/16/19 06:00 113 06/16/19 06:00 108 22 95/54 (68) 100 06/16/19 05:00 113 26 104/63 (77) 99 06/16/19 04:50 121 28 96 50 06/16/19 04:00 98.6 115 32 105/60 (75) 91 06/16/19 04:00 Venturi Mask 8.0 06/16/19 03:08 95 Venturi Mask 8.0 40 06/16/19 03:00 111 18 111/66 (81) 94 06/16/19 02:00 104 25 122/70 (87) 97 06/16/19 01:00 110 13 106/63 (77) 94 06/16/19 00:36 108 06/16/19 00:30 Nasal Cannula 2.0 06/16/19 00:10 98.3 115 24 123/68 (86) 95 06/16/19 00:05 98.5 114 25 117/63 95 Nasal Cannula 2.0 28 06/15/19 22:57 95 Nasal Cannula 2.0 28 06/15/19 22:30 98.2 111 24 125/63 92 Nasal Cannula 2.0 28 06/15/19 20:45 98.2 135 23 133/74 99 Nasal Cannula 2.0 28 06/15/19 20:38 120 24 98 Nasal Cannula 2.0 28 114 24 95 06/15/19 20:00 98.2 125 25 112/82 87 Nasal Cannula 2.0 06/15/19 19:55 98.2 125 16 112/82 98 Room Air 06/15/19 19:55 125 16 Room Air 06/15/19 19:44 98.2 120 16 123/35 (64) 98 Room Air Intake and Output 06/15/19 06/16/19 18:59 06:59 Intake Total 585 ml Output Total 200 ml Balance 385 ml Intake Oral 50 ml IV Total 535 ml Output Urine Total 200 ml # Voids 3 # Bowel Movements 2 Laboratory Tests Test 06/15/19 19:53 06/15/19 20:05 06/15/19 21:48 06/15/19 23:05 Venous Blood pH 7.348 Venous Blood Partial Pressure CO2 35.6 Venous Blood Partial Pressure O2 < 45.3 Venous Blood HCO3 19.1 Venous Blood Total Carbon Dioxide 35.6 Venous Blood Base Excess -5.7 Venous Blood Carboxyhemoglobin 2.1 % (0.5-1.5) H Methemoglobin 0.5 White Blood Count 4.1 K/UL (4.8-10.8) L Red Blood Count 4.10 M/UL (4.70-6.10) L Hemoglobin 12.1 G/DL (14.2-18.0) L Hematocrit 35.0 % (42.0-52.0) L Mean Corpuscular Volume 85 FL (80-99) Mean Corpuscular Hemoglobin 29.5 PG (27.0-31.0) Mean Corpuscular Hemoglobin Concent 34.6 G/DL (32.0-36.0) Red Cell Distribution Width 12.7 % (11.6-14.8) Platelet Count 187 K/UL (150-450) Mean Platelet Volume 8.5 FL (6.5-10.1) Neutrophils (%) (Auto) % (45.0-75.0) Lymphocytes (%) (Auto) % (20.0-45.0) Monocytes (%) (Auto) % (1.0-10.0) Eosinophils (%) (Auto) % (0.0-3.0) Basophils (%) (Auto) % (0.0-2.0) Prothrombin Time 12.0 SEC (9.30-11.50) H Prothromb Time International Ratio 1.1 (0.9-1.1) Activated Partial Thromboplast Time 29 SEC (23-33) Sodium Level 141 MMOL/L (136-145) Potassium Level 3.1 MMOL/L (3.5-5.1) L Chloride Level 107 MMOL/L (98-107) Carbon Dioxide Level 18 MMOL/L (21-32) L Anion Gap 16 mmol/L (5-15) H Blood Urea Nitrogen 33 mg/dL (7-18) H Creatinine 2.1 MG/DL (0.55-1.30) H Estimat Glomerular Filtration Rate 31.1 mL/min (>60) Glucose Level 108 MG/DL (74-106) H Lactic Acid Level 3.70 mmol/L (0.4-2.0) H 3.60 mmol/L (0.66-2.22) H Calcium Level 8.0 MG/DL (8.5-10.1) L Magnesium Level 1.4 MG/DL (1.8-2.4) L Total Bilirubin 0.5 MG/DL (0.2-1.0) Aspartate Amino Transf (AST/SGOT) 22 U/L (15-37) Alanine Aminotransferase (ALT/SGPT) 24 U/L (12-78) Alkaline Phosphatase 109 U/L (46-116) Total Creatine Kinase 198 U/L (26-308) Troponin I 0.065 ng/mL (0.000-0.056) Total Protein 5.9 G/DL (6.4-8.2) L Albumin 2.0 G/DL (3.4-5.0) L Globulin 3.9 g/dL Albumin/Globulin Ratio 0.5 (1.0-2.7) L Triglycerides Level 48 MG/DL (30-150) Lipase 1013 U/L (73-393) H Urine Color Imna Urine Appearance Cloudy Urine pH 5 (4.5-8.0) Urine Specific [place] 1.020 (1.005-1.035) Urine Protein 4+ (NEGATIVE) H Urine Glucose (UA) 1+ (NEGATIVE) H Urine Ketones Negative (NEGATIVE) Urine Blood 4+ (NEGATIVE) H Urine Nitrite Negative (NEGATIVE) Urine Bilirubin Negative (NEGATIVE) Urine Ictotest Negative (NEGATIVE) Urine Urobilinogen Normal MG/DL (0.0-1.0) Urine Leukocyte Esterase 1+ (NEGATIVE) H Urine RBC 20-30 /HPF (0 - 0) H Urine WBC 5-10 /HPF (0 - 0) H Urine Squamous Epithelial Cells Few /LPF (NONE/OCC) Urine Amorphous Sediment Many /LPF (NONE) H Urine Bacteria Many /HPF (NONE) H Urine Granular Casts 0-2 /LPF (NONE) H Urine Random Sodium 33 mmol/L (20-110) Urine Creatinine 130.1 MG/DL (30.0-125.0) H Test 06/16/19 04:33 06/16/19 06:00 06/16/19 06:13 06/16/19 08:35 Arterial Blood pH 7.336 (7.350-7.450) Arterial Blood Partial Pressure CO2 25.5 mmHg (35.0-45.0) L Arterial Blood Partial Pressure O2 61.3 mmHg (75.0-100.0) L Arterial Blood HCO3 13.3 mmol/L (22.0-26.0) *L Arterial Blood Oxygen Saturation 89.3 % (95-100) *L Arterial Blood Base Excess -10.8 (-2-2) *L Saul Test Positive Magnesium Level 1.9 MG/DL (1.8-2.4) White Blood Count 18.8 K/UL (4.8-10.8) #H Red Blood Count 3.83 M/UL (4.70-6.10) L Hemoglobin 11.4 G/DL (14.2-18.0) L Hematocrit 33.3 % (42.0-52.0) L Mean Corpuscular Volume 87 FL (80-99) Mean Corpuscular Hemoglobin 29.7 PG (27.0-31.0) Mean Corpuscular Hemoglobin Concent 34.1 G/DL (32.0-36.0) Red Cell Distribution Width 12.9 % (11.6-14.8) Platelet Count 134 K/UL (150-450) L Mean Platelet Volume 8.8 FL (6.5-10.1) Neutrophils (%) (Auto) % (45.0-75.0) Lymphocytes (%) (Auto) % (20.0-45.0) Monocytes (%) (Auto) % (1.0-10.0) Eosinophils (%) (Auto) % (0.0-3.0) Basophils (%) (Auto) % (0.0-2.0) Neutrophils % (Manual) Pending Lymphocytes % (Manual) Pending Platelet Estimate Pending Platelet Morphology Pending Sodium Level 142 MMOL/L (136-145) Potassium Level 3.5 MMOL/L (3.5-5.1) Chloride Level 108 MMOL/L (98-107) H Carbon Dioxide Level 21 MMOL/L (21-32) Anion Gap 13 mmol/L (5-15) Blood Urea Nitrogen 36 mg/dL (7-18) H Creatinine 2.5 MG/DL (0.55-1.30) H Estimat Glomerular Filtration Rate 25.4 mL/min (>60) Glucose Level 103 MG/DL (74-106) Lactic Acid Level 3.30 mmol/L (0.4-2.0) H 3.20 mmol/L (0.66-2.22) H Calcium Level 7.5 MG/DL (8.5-10.1) L Total Bilirubin 0.5 MG/DL (0.2-1.0) Direct Bilirubin 0.2 MG/DL (0.0-0.3) Aspartate Amino Transf (AST/SGOT) 129 U/L (15-37) H Alanine Aminotransferase (ALT/SGPT) 42 U/L (12-78) Alkaline Phosphatase 61 U/L (46-116) Troponin I 0.348 ng/mL (0.000-0.056) Total Protein 5.2 G/DL (6.4-8.2) L Albumin 1.8 G/DL (3.4-5.0) L Lipase 1068 U/L (73-393) H Test 06/16/19 10:05 Arterial Blood pH 7.363 (7.350-7.450) Arterial Blood Partial Pressure CO2 26.9 mmHg (35.0-45.0) L Arterial Blood Partial Pressure O2 80.1 mmHg (75.0-100.0) Arterial Blood HCO3 15.0 mmol/L (22.0-26.0) *L Arterial Blood Oxygen Saturation 95.3 % (95-100) Arterial Blood Base Excess -9.1 (-2-2) *L Saul Test Positive Height (Feet): 5 Height (Inches): 7.00 Weight (Pounds): 232 Medications Current Medications Medications (Trade) Dose Ordered Sig/Arley Route PRN Reason Start Time Stop Time Status Last Admin Dose Admin Acetaminophen (Tylenol) 650 mg Q4H PRN ORAL Mild Pain (Pain Scale 1-3) 06/15/19 22:45 07/15/19 22:44 Albuterol/ Ipratropium (Albuterol/ Ipratropium) 3 ml Q4H PRN HHN Shortness of Breath 06/16/19 01:00 06/21/19 00:59 Aspirin (ASA) 81 mg DAILY NG 06/16/19 09:00 07/16/19 08:59 Barium Sulfate (Readi-Cat 2) 450 ml NOW PRN ORAL Radiology Procedure 06/15/19 20:00 06/17/19 20:00 06/15/19 21:08 Bisacodyl (Dulcolax) 10 mg DAILYPRN PRN RECTAL Constipation 06/15/19 22:45 07/15/19 22:44 Cefepime HCl 1 gm/ Dextrose 55 ml @ 110 mls/hr EVERY 12 HOURS IVPB 06/16/19 09:00 06/23/19 08:59 06/16/19 09:27 Chlorhexidine Gluconate (Mena-Hex 2%) 1 applic DAILY@2000 TOPIC 06/16/19 20:00 07/16/19 19:59 Dextrose (Dextrose 50%) 25 ml Q30M PRN IV Hypoglycemia 06/16/19 01:00 07/16/19 00:59 Dextrose (Dextrose 50%) 50 ml Q30M PRN IV Hypoglycemia 06/16/19 01:00 07/16/19 00:59 Dextrose/Sodium Chloride 1,000 ml @ 50 mls/hr Q20H ONCE IV 06/16/19 01:00 06/16/19 20:59 06/16/19 01:18 Docusate Sodium (Colace) 100 mg EVERY 12 HOURS ORAL 06/16/19 09:00 07/16/19 08:59 Heparin Sodium (Porcine) (Heparin 5000 units/ml) 5,000 units EVERY 12 HOURS SUBQ 06/16/19 09:00 07/16/19 08:59 Future Hold Hydromorphone HCl (Dilaudid) 0.5 mg Q4H PRN IVP Moderate Pain (Pain Scale 4-6) 06/16/19 04:32 06/23/19 04:31 06/16/19 04:56 Insulin Aspart (NovoLOG) Q6HR SUBQ 06/16/19 06:00 07/16/19 05:59 Ipratropium [place] (Atrovent) 500 mcg Q4H PRN HHN Shortness of Breath 06/16/19 04:50 06/21/19 04:49 UNV Levofloxacin 150 ml @ 100 mls/hr Q48H IVPB 06/17/19 21:00 06/24/19 20:59 Magnesium Hydroxide (Mom) 30 ml HSPRN PRN ORAL Constipation 06/15/19 22:45 07/15/19 22:44 Ondansetron HCl (Zofran) 4 mg Q6H PRN IVP Nausea & Vomiting 06/15/19 22:45 07/15/19 22:44 Pantoprazole (Protonix) 40 mg DAILY IVP 06/16/19 09:00 07/16/19 08:59 06/16/19 09:00 Phenylephrine HCl 50 mg/Dextrose 250 ml @ 0 mls/hr Q24H IV 06/16/19 08:30 07/16/19 08:29 Sodium Chloride 1,000 ml @ 100 mls/hr Q10H IV 06/16/19 07:00 06/16/19 13:00 06/16/19 06:50 Sodium Chloride 1,000 ml @ 100 mls/hr Q10H IV 06/17/19 03:00 07/17/19 02:59 Sodium Chloride 1,000 ml @ 150 mls/hr Q6H40M ONCE IV 06/16/19 21:00 06/17/19 03:39 Assessment/Plan Diagnosis [place] I: #acute kidney injury - on baseline CKD- Fena 0.4% suggestive of pre-renal aztemia- however UA with sediments and RBC concerning for developing ATN- patient with baseline diabetic nephropathy #sepsis #acute pancreatitis # Hypokalemia, hypopmagnesemia #lactic acidosis #HTN #DM - continue to hydration switch to LR - pressors as needed to maintain MAP > 65 - check UT/cr - trend lactate - hold lisinopril - check renal US to assess kidneys size, echogenicity, r/o hydro - hold mertformin - hold amlodipine - ISS - antibiotics per ID - follow Gerson Talavera M.D. Jun 16, 2019 11:07
[2019-06-16] MEDS ORDERED: LR 1000ml 1,000 ML IV SCH (12:00)
--- NOTE | 2019-06-16 12:00 | NUR ---
NURSE NOTES: Patient alert to name and place but confused to time and purpose. Patient remains restless and moving around in the bed. Patient denies distress at this time. Patient remains on BiPAP 12/5 with 50% FiO2. Patient tolerating with no distress and SPO2 100% and high RR of 30. Patient remains NPO. Rivero in place and draining dark mary urine. Left hand 20 gauge peripheral IV, left AC 20 gauge peripheral IV remain patent, asymptomatic, and flushed at this time. Patient D5LR running at 125mL/hr. PICC line consent signed and PICC will be inserted shortly by PICC team/radiologist. Will follow up. Patient blood pressure within normal limits. Will monitor and administer phenylephrine per order if necessary. Bed in low position with bed alarm on and call light in reach. Patient repositioned and oral care done. Will continue to monitor.
[2019-06-16] MEDS: Dextrose 5%/Lactated Ringer's 1,000 ML IV SCH ×2 (12:17→19:53)
--- NOTE | 2019-06-16 12:21 | GI Initial Consult Note ---
History of Present Illness General Date patient seen: Jun 16, 2019 Time patient seen: 12:07 Reason for Hospitalization: Generalized Weakness Referring physician: LEILA LOVETT Reason for Consultation: DIARRHEA Present Illness HPI Patient brought by EMS. He has been having nausea vomiting and diarrhea for the last few days. He is a insulin-dependent diabetic on metformin also. He has been taking his Lantus. He denies abdominal pain at this time. Paramedics found him with blood pressure of 86 in the field. They gave him of 250 fluid bolus and his blood pressure opal to 125 systolic. His glucose was also 124. The diarrhea has been brown without any blood. He is never had this problem before. The patient smokes. He has heard himself wheezing. He denies productive cough. No fevers, chills, sore throat, chest pain, palpitations, dysuria, joint pain, rashes, depression, anxiety, visual changes, dizziness, headache. Patient with history of hypertension and diabetes on Plavix. Patient sustained head injury June 02 with laceration to scalp. There was no syncope. CT of the head and C-spine were performed. GI reported for reported nausea vomiting and diarrhea for the past few days. ROS limited, patient was seen was in the ICU currently on BiPAP. Abdominal pelvis CT without contrast and noted a left upper quadrant cystic mass adjacent to the tail of the pancreas. Also noted mildly distended proximal small bowel with slow for transit of ingested contrast with which suspected ileus versus enteritis versus early or small bowel obstruction. Also mild distal soft tissue the wall thickening which may demonstrated esophagitis. Laboratory review shows troponin elevation of 0.348, lipase of 1068, creatinine 2.5. Unknown history of endoscopic or colonoscopy at this time. Home Meds Reported Medications Aspirin (JUNG CHEWABLE) 81 Mg Tab.chew, 81 MG PO for cardiac, TAB 06/15/19 Insulin Glargine (LANTUS) 100 Unit/1 Ml Insuln.pen, 0 SUBQ BEDTIME for DM, #1 EA 0 Refills 06/15/19 Metformin Hcl* (METFORMIN HCL*) 500 Mg Tablet, 500 MG ORAL TWICE A DAY for DM, TAB 06/15/19 Clonidine Hcl* (CATAPRES*) 0.2 Mg Tablet, 0.2 MG ORAL Q6HR for HTN, TAB 06/15/19 Amlodipine Besylate* (AMLODIPINE BESYLATE*) 10 Mg Tablet, 10 MG ORAL DAILY for HTN, TAB 06/15/19 Acarbose* (PRECOSE*) 50 Mg Tablet, 50 MG ORAL THREE TIMES A DAY for unk, TAB 0 Refills 06/15/19 Lisinopril (LISINOPRIL*) 20 Mg Tablet, 40 MG ORAL DAILY for HTN, TAB 06/15/19 Simvastatin (ZOCOR) 5 Mg Tablet, 5 MG ORAL BEDTIME for cholesterol, TAB 06/15/19 Folic Acid* (FOLIC ACID*) 1 Mg Tablet, 1 MG ORAL DAILY for unk, TAB 06/15/19 Clopidogrel* (CLOPIDOGREL*) 75 Mg Tablet, 75 MG ORAL DAILY for unk, TAB 06/15/19 Med list reviewed/reconciled: Yes Allergies: Coded Allergies: No Known Allergies (Unverified , 06/02/19) Patient History Limited by: medical condition History Provided By: Medical Record PMH Narrative Past Medical History: see triage record, old chart reviewed Social History: Reports: smoking Social History Narrative 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 - , 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 Reviewed Nursing Documentation: PMH: Agreed; PSxH: Agreed Nursing Documentation-PMH Hx Hypertension: Yes Hx Diabetes: Yes Social History: Reports: smoking Review of Systems All Other Systems: limited Physical Exam Vital Signs Date Time Temp Pulse Resp B/P (MAP) Pulse Ox O2 Delivery O2 Flow Rate FiO2 06/15/19 19:44 98.2 120 16 123/35 (64) 98 Room Air 06/15/19 20:00 2.0 06/15/19 20:38 28 Sp02 EP Interpretation: reviewed Labs Laboratory Tests Test 06/15/19 19:53 06/15/19 20:05 06/15/19 21:48 06/15/19 23:05 Venous Blood pH 7.348 Venous Blood Partial Pressure CO2 35.6 Venous Blood Partial Pressure O2 < 45.3 Venous Blood HCO3 19.1 Venous Blood Total Carbon Dioxide 35.6 Venous Blood Base Excess -5.7 Venous Blood Carboxyhemoglobin 2.1 % (0.5-1.5) H Methemoglobin 0.5 White Blood Count 4.1 K/UL (4.8-10.8) L Red Blood Count 4.10 M/UL (4.70-6.10) L Hemoglobin 12.1 G/DL (14.2-18.0) L Hematocrit 35.0 % (42.0-52.0) L Mean Corpuscular Volume 85 FL (80-99) Mean Corpuscular Hemoglobin 29.5 PG (27.0-31.0) Mean Corpuscular Hemoglobin Concent 34.6 G/DL (32.0-36.0) Red Cell Distribution Width 12.7 % (11.6-14.8) Platelet Count 187 K/UL (150-450) Mean Platelet Volume 8.5 FL (6.5-10.1) Neutrophils (%) (Auto) % (45.0-75.0) Lymphocytes (%) (Auto) % (20.0-45.0) Monocytes (%) (Auto) % (1.0-10.0) Eosinophils (%) (Auto) % (0.0-3.0) Basophils (%) (Auto) % (0.0-2.0) Prothrombin Time 12.0 SEC (9.30-11.50) H Prothromb Time International Ratio 1.1 (0.9-1.1) Activated Partial Thromboplast Time 29 SEC (23-33) Sodium Level 141 MMOL/L (136-145) Potassium Level 3.1 MMOL/L (3.5-5.1) L Chloride Level 107 MMOL/L (98-107) Carbon Dioxide Level 18 MMOL/L (21-32) L Anion Gap 16 mmol/L (5-15) H Blood Urea Nitrogen 33 mg/dL (7-18) H Creatinine 2.1 MG/DL (0.55-1.30) H Estimat Glomerular Filtration Rate 31.1 mL/min (>60) Glucose Level 108 MG/DL (74-106) H Lactic Acid Level 3.70 mmol/L (0.4-2.0) H 3.60 mmol/L (0.66-2.22) H Calcium Level 8.0 MG/DL (8.5-10.1) L Magnesium Level 1.4 MG/DL (1.8-2.4) L Total Bilirubin 0.5 MG/DL (0.2-1.0) Aspartate Amino Transf (AST/SGOT) 22 U/L (15-37) Alanine Aminotransferase (ALT/SGPT) 24 U/L (12-78) Alkaline Phosphatase 109 U/L (46-116) Total Creatine Kinase 198 U/L (26-308) Troponin I 0.065 ng/mL (0.000-0.056) Total Protein 5.9 G/DL (6.4-8.2) L Albumin 2.0 G/DL (3.4-5.0) L Globulin 3.9 g/dL Albumin/Globulin Ratio 0.5 (1.0-2.7) L Triglycerides Level 48 MG/DL (30-150) Lipase 1013 U/L (73-393) H Urine Color Iman Urine Appearance Cloudy Urine pH 5 (4.5-8.0) Urine Specific [place] 1.020 (1.005-1.035) Urine Protein 4+ (NEGATIVE) H Urine Glucose (UA) 1+ (NEGATIVE) H Urine Ketones Negative (NEGATIVE) Urine Blood 4+ (NEGATIVE) H Urine Nitrite Negative (NEGATIVE) Urine Bilirubin Negative (NEGATIVE) Urine Ictotest Negative (NEGATIVE) Urine Urobilinogen Normal MG/DL (0.0-1.0) Urine Leukocyte Esterase 1+ (NEGATIVE) H Urine RBC 20-30 /HPF (0 - 0) H Urine WBC 5-10 /HPF (0 - 0) H Urine Squamous Epithelial Cells Few /LPF (NONE/OCC) Urine Amorphous Sediment Many /LPF (NONE) H Urine Bacteria Many /HPF (NONE) H Urine Granular Casts 0-2 /LPF (NONE) H Urine Random Sodium 33 mmol/L (20-110) Urine Creatinine 130.1 MG/DL (30.0-125.0) H Test 06/16/19 04:33 06/16/19 06:00 06/16/19 06:13 06/16/19 08:35 Arterial Blood pH 7.336 (7.350-7.450) Arterial Blood Partial Pressure CO2 25.5 mmHg (35.0-45.0) L Arterial Blood Partial Pressure O2 61.3 mmHg (75.0-100.0) L Arterial Blood HCO3 13.3 mmol/L (22.0-26.0) *L Arterial Blood Oxygen Saturation 89.3 % (95-100) *L Arterial Blood Base Excess -10.8 (-2-2) *L Saul Test Positive Magnesium Level 1.9 MG/DL (1.8-2.4) White Blood Count 18.8 K/UL (4.8-10.8) #H Red Blood Count 3.83 M/UL (4.70-6.10) L Hemoglobin 11.4 G/DL (14.2-18.0) L Hematocrit 33.3 % (42.0-52.0) L Mean Corpuscular Volume 87 FL (80-99) Mean Corpuscular Hemoglobin 29.7 PG (27.0-31.0) Mean Corpuscular Hemoglobin Concent 34.1 G/DL (32.0-36.0) Red Cell Distribution Width 12.9 % (11.6-14.8) Platelet Count 134 K/UL (150-450) L Mean Platelet Volume 8.8 FL (6.5-10.1) Neutrophils (%) (Auto) % (45.0-75.0) Lymphocytes (%) (Auto) % (20.0-45.0) Monocytes (%) (Auto) % (1.0-10.0) Eosinophils (%) (Auto) % (0.0-3.0) Basophils (%) (Auto) % (0.0-2.0) Differential Total Cells Counted 100 Neutrophils % (Manual) 89 % (45-75) H Lymphocytes % (Manual) 2 % (20-45) L Monocytes % (Manual) 4 % (1-10) Eosinophils % (Manual) 3 % (0-3) Basophils % (Manual) 0 % (0-2) Band Neutrophils 2 % (0-8) Platelet Estimate Decreased L Platelet Morphology Normal Hypochromasia 1+ Anisocytosis 1+ Sodium Level 142 MMOL/L (136-145) Potassium Level 3.5 MMOL/L (3.5-5.1) Chloride Level 108 MMOL/L (98-107) H Carbon Dioxide Level 21 MMOL/L (21-32) Anion Gap 13 mmol/L (5-15) Blood Urea Nitrogen 36 mg/dL (7-18) H Creatinine 2.5 MG/DL (0.55-1.30) H Estimat Glomerular Filtration Rate 25.4 mL/min (>60) Glucose Level 103 MG/DL (74-106) Lactic Acid Level 3.30 mmol/L (0.4-2.0) H 3.20 mmol/L (0.66-2.22) H Calcium Level 7.5 MG/DL (8.5-10.1) L Total Bilirubin 0.5 MG/DL (0.2-1.0) Direct Bilirubin 0.2 MG/DL (0.0-0.3) Aspartate Amino Transf (AST/SGOT) 129 U/L (15-37) H Alanine Aminotransferase (ALT/SGPT) 42 U/L (12-78) Alkaline Phosphatase 61 U/L (46-116) Troponin I 0.348 ng/mL (0.000-0.056) Total Protein 5.2 G/DL (6.4-8.2) L Albumin 1.8 G/DL (3.4-5.0) L Lipase 1068 U/L (73-393) H Test 06/16/19 10:05 Arterial Blood pH 7.363 (7.350-7.450) Arterial Blood Partial Pressure CO2 26.9 mmHg (35.0-45.0) L Arterial Blood Partial Pressure O2 80.1 mmHg (75.0-100.0) Arterial Blood HCO3 15.0 mmol/L (22.0-26.0) *L Arterial Blood Oxygen Saturation 95.3 % (95-100) Arterial Blood Base Excess -9.1 (-2-2) *L Saul Test Positive General Appearance: no apparent distress Head: normocephalic EENT: PERRL/EOMI Neck: supple Respiratory: other - bipap Neurologic: alert Psychiatric: normal inspection Skin: normal inspection, normal color, no rash, warm/dry, palpation normal Lymphatic: normal inspection, no adenopathy Current Medications Current Medications Medications (Trade) Dose Ordered Sig/Arley Route PRN Reason Start Time Stop Time Status Last Admin Dose Admin Acetaminophen (Tylenol) 650 mg Q4H PRN ORAL Mild Pain (Pain Scale 1-3) 06/15/19 22:45 07/15/19 22:44 Albuterol/ Ipratropium (Albuterol/ Ipratropium) 3 ml Q4H PRN HHN Shortness of Breath 06/16/19 01:00 06/21/19 00:59 Aspirin (ASA) 81 mg DAILY NG 06/16/19 09:00 07/16/19 08:59 Barium Sulfate (Readi-Cat 2) 450 ml NOW PRN ORAL Radiology Procedure 06/15/19 20:00 06/17/19 20:00 06/15/19 21:08 Bisacodyl (Dulcolax) 10 mg DAILYPRN PRN RECTAL Constipation 06/15/19 22:45 07/15/19 22:44 Cefepime HCl 1 gm/ Dextrose 55 ml @ 110 mls/hr EVERY 12 HOURS IVPB 06/16/19 09:00 06/23/19 08:59 06/16/19 09:27 Chlorhexidine Gluconate (Mena-Hex 2%) 1 applic DAILY@2000 TOPIC 06/16/19 20:00 07/16/19 19:59 Dextrose (Dextrose 50%) 25 ml Q30M PRN IV Hypoglycemia 06/16/19 01:00 07/16/19 00:59 Dextrose (Dextrose 50%) 50 ml Q30M PRN IV Hypoglycemia 06/16/19 01:00 07/16/19 00:59 Dextrose/Lactated Ringer's 1,000 ml @ 125 mls/hr Q8H IV 06/16/19 11:30 07/16/19 11:29 Docusate Sodium (Colace) 100 mg EVERY 12 HOURS ORAL 06/16/19 09:00 07/16/19 08:59 Heparin Sodium (Porcine) (Heparin 5000 units/ml) 5,000 units EVERY 12 HOURS SUBQ 06/16/19 09:00 07/16/19 08:59 Future Hold Hydromorphone HCl (Dilaudid) 0.5 mg Q4H PRN IVP Moderate Pain (Pain Scale 4-6) 06/16/19 04:32 06/23/19 04:31 06/16/19 04:56 Insulin Aspart (NovoLOG) Q6HR SUBQ 06/16/19 06:00 07/16/19 05:59 Ipratropium [place] (Atrovent) 500 mcg Q4H PRN HHN Shortness of Breath 06/16/19 04:50 06/21/19 04:49 UNV Levofloxacin 150 ml @ 100 mls/hr Q48H IVPB 06/17/19 21:00 06/24/19 20:59 Magnesium Hydroxide (Mom) 30 ml HSPRN PRN ORAL Constipation 06/15/19 22:45 07/15/19 22:44 Ondansetron HCl (Zofran) 4 mg Q6H PRN IVP Nausea & Vomiting 06/15/19 22:45 07/15/19 22:44 Pantoprazole (Protonix) 40 mg DAILY IVP 06/16/19 09:00 07/16/19 08:59 06/16/19 09:00 Phenylephrine HCl 50 mg/Dextrose 250 ml @ 0 mls/hr Q24H IV 06/16/19 08:30 07/16/19 08:29 GI: Plan Problems: (1) Left upper quadrant abdominal mass (2) Acute pancreatitis Plan #Left upper quadrant cystic mass -Patient not stable for any GI procedures at this time, but may need EUS in the future. -Check [id number] - MRI when stable #Diarrhea -Send for stool studies and C. 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 Akbar. Thank you for this patient referral, we will follow. The patient was seen and examined at bedside and all new and available data was reviewed in the patients chart. I agree with the above findings, impression and plan. (Patient seen earlier today. Signature stamp does not reflect patient encounter time.). - MD Kelsea Hua,[facility], [place] [employer] Jun 16, 2019 12:21
--- NOTE | 2019-06-16 12:50 | History and Physical ---
History of Present Illness General Date patient seen: Jun 16, 2019 Time patient seen: 07:00 Reason for Hospitalization: Generalized Weakness Present Illness HPI 73 year old male with past medical history significant for insulin dependent DM , hypertension, possible CVA on plavix brought by EMS with chief nausea vomiting and diarrhea for the last few days. Paramedics found him with blood pressure of 86 in the field. They gave him of 250 fluid bolus and his blood pressure opal to 125 systolic. His glucose was also 124. The diarrhea has been brown without any blood. He is never had this problem before.The patient smokes. He has heard himself wheezing. He denies productive cough. patient seen and examined in the ICU. he is currently on bipap. Further history limited due to clinical condition. Information obtained from chart review. Social Hx: Current smoker Allergies: Coded Allergies: No Known Allergies (Unverified , 06/02/19) Medication History Scheduled Acarbose* (Precose*), 50 MG ORAL THREE TIMES A DAY, (Reported) Amlodipine Besylate* (Amlodipine Besylate*), 10 MG ORAL DAILY, (Reported) Clonidine Hcl* (Catapres*), 0.2 MG ORAL Q6HR, (Reported) Clopidogrel* (Clopidogrel*), 75 MG ORAL DAILY, (Reported) Folic Acid* (Folic Acid*), 1 MG ORAL DAILY, (Reported) Insulin Glargine (Lantus), 0 SUBQ BEDTIME, (Reported) Lisinopril (Lisinopril*), 40 MG ORAL DAILY, (Reported) Metformin Hcl* (Metformin Hcl*), 500 MG ORAL TWICE A DAY, (Reported) Simvastatin (Zocor), 5 MG ORAL BEDTIME, (Reported) Miscellaneous Medications Aspirin (Court Chewable), 81 MG PO, (Reported) Patient History Limited by: medical condition History Provided By: Medical Record Healthcare decision maker Resuscitation status Full Code Advanced Directive on File Review of Systems ROS Narrative Unable to obtain due to confusion and overall medical condition Physical Exam General Appearance: no apparent distress, alert HEENT: atraumatic, anicteric Neck: normal alignment, supple Respiratory/Chest: lungs clear, normal breath sounds, no respiratory distress Cardiovascular/Chest: normal rate, regular rhythm Abdomen: non tender, soft, no organomegaly Extremities: non-tender, normal inspection Skin Exam: warm/dry, cyanotic Neurologic: alert Last 24 Hour Vital Signs Date Time Temp Pulse Resp B/P (MAP) Pulse Ox O2 Delivery O2 Flow Rate FiO2 06/16/19 10:58 108 31 97 50 06/16/19 08:55 117 36 94 50 06/16/19 08:30 114 129/53 06/16/19 07:23 106 13 100 Bi-Pap 50 06/16/19 07:22 100 Bi-Pap 50 06/16/19 07:21 105 30 100 50 06/16/19 07:00 102 21 80/49 (59) 99 06/16/19 06:45 103 7 85/52 (63) 100 06/16/19 06:30 103 9 77/51 (60) 100 06/16/19 06:00 113 06/16/19 06:00 108 22 95/54 (68) 100 06/16/19 05:00 113 26 104/63 (77) 99 06/16/19 04:50 121 28 96 50 06/16/19 04:00 98.6 115 32 105/60 (75) 91 06/16/19 04:00 Venturi Mask 8.0 06/16/19 03:08 95 Venturi Mask 8.0 40 06/16/19 03:00 111 18 111/66 (81) 94 06/16/19 02:00 104 25 122/70 (87) 97 06/16/19 01:00 110 13 106/63 (77) 94 06/16/19 00:36 108 06/16/19 00:30 Nasal Cannula 2.0 06/16/19 00:10 98.3 115 24 123/68 (86) 95 06/16/19 00:05 98.5 114 25 117/63 95 Nasal Cannula 2.0 28 06/15/19 22:57 95 Nasal Cannula 2.0 28 06/15/19 22:30 98.2 111 24 125/63 92 Nasal Cannula 2.0 28 06/15/19 20:45 98.2 135 23 133/74 99 Nasal Cannula 2.0 28 06/15/19 20:38 120 24 98 Nasal Cannula 2.0 28 114 24 95 06/15/19 20:00 98.2 125 25 112/82 87 Nasal Cannula 2.0 06/15/19 19:55 98.2 125 16 112/82 98 Room Air 06/15/19 19:55 125 16 Room Air 06/15/19 19:44 98.2 120 16 123/35 (64) 98 Room Air Intake and Output 06/15/19 06/16/19 19:00 07:00 Intake Total 585 ml Output Total 200 ml Balance 385 ml Intake Oral 50 ml IV Total 535 ml Output Urine Total 200 ml # Voids 4 # Bowel Movements 2 Laboratory Tests Test 06/15/19 19:53 06/15/19 20:05 06/15/19 21:48 06/15/19 23:05 Venous Blood pH 7.348 Venous Blood Partial Pressure CO2 35.6 Venous Blood Partial Pressure O2 < 45.3 Venous Blood HCO3 19.1 Venous Blood Total Carbon Dioxide 35.6 Venous Blood Base Excess -5.7 Venous Blood Carboxyhemoglobin 2.1 % (0.5-1.5) H Methemoglobin 0.5 White Blood Count 4.1 K/UL (4.8-10.8) L Red Blood Count 4.10 M/UL (4.70-6.10) L Hemoglobin 12.1 G/DL (14.2-18.0) L Hematocrit 35.0 % (42.0-52.0) L Mean Corpuscular Volume 85 FL (80-99) Mean Corpuscular Hemoglobin 29.5 PG (27.0-31.0) Mean Corpuscular Hemoglobin Concent 34.6 G/DL (32.0-36.0) Red Cell Distribution Width 12.7 % (11.6-14.8) Platelet Count 187 K/UL (150-450) Mean Platelet Volume 8.5 FL (6.5-10.1) Neutrophils (%) (Auto) % (45.0-75.0) Lymphocytes (%) (Auto) % (20.0-45.0) Monocytes (%) (Auto) % (1.0-10.0) Eosinophils (%) (Auto) % (0.0-3.0) Basophils (%) (Auto) % (0.0-2.0) Prothrombin Time 12.0 SEC (9.30-11.50) H Prothromb Time International Ratio 1.1 (0.9-1.1) Activated Partial Thromboplast Time 29 SEC (23-33) Sodium Level 141 MMOL/L (136-145) Potassium Level 3.1 MMOL/L (3.5-5.1) L Chloride Level 107 MMOL/L (98-107) Carbon Dioxide Level 18 MMOL/L (21-32) L Anion Gap 16 mmol/L (5-15) H Blood Urea Nitrogen 33 mg/dL (7-18) H Creatinine 2.1 MG/DL (0.55-1.30) H Estimat Glomerular Filtration Rate 31.1 mL/min (>60) Glucose Level 108 MG/DL (74-106) H Lactic Acid Level 3.70 mmol/L (0.4-2.0) H 3.60 mmol/L (0.66-2.22) H Calcium Level 8.0 MG/DL (8.5-10.1) L Magnesium Level 1.4 MG/DL (1.8-2.4) L Total Bilirubin 0.5 MG/DL (0.2-1.0) Aspartate Amino Transf (AST/SGOT) 22 U/L (15-37) Alanine Aminotransferase (ALT/SGPT) 24 U/L (12-78) Alkaline Phosphatase 109 U/L (46-116) Total Creatine Kinase 198 U/L (26-308) Troponin I 0.065 ng/mL (0.000-0.056) Total Protein 5.9 G/DL (6.4-8.2) L Albumin 2.0 G/DL (3.4-5.0) L Globulin 3.9 g/dL Albumin/Globulin Ratio 0.5 (1.0-2.7) L Triglycerides Level 48 MG/DL (30-150) Lipase 1013 U/L (73-393) H Urine Color [place] Urine Appearance Cloudy Urine pH 5 (4.5-8.0) Urine Specific [place] 1.020 (1.005-1.035) Urine Protein 4+ (NEGATIVE) H Urine Glucose (UA) 1+ (NEGATIVE) H Urine Ketones Negative (NEGATIVE) Urine Blood 4+ (NEGATIVE) H Urine Nitrite Negative (NEGATIVE) Urine Bilirubin Negative (NEGATIVE) Urine Ictotest Negative (NEGATIVE) Urine Urobilinogen Normal MG/DL (0.0-1.0) Urine Leukocyte Esterase 1+ (NEGATIVE) H Urine RBC 20-30 /HPF (0 - 0) H Urine WBC 5-10 /HPF (0 - 0) H Urine Squamous Epithelial Cells Few /LPF (NONE/OCC) Urine Amorphous Sediment Many /LPF (NONE) H Urine Bacteria Many /HPF (NONE) H Urine Granular Casts 0-2 /LPF (NONE) H Urine Random Sodium 33 mmol/L (20-110) Urine Creatinine 130.1 MG/DL (30.0-125.0) H Test 06/16/19 04:33 06/16/19 06:00 06/16/19 06:13 06/16/19 08:35 Arterial Blood pH 7.336 (7.350-7.450) Arterial Blood Partial Pressure CO2 25.5 mmHg (35.0-45.0) L Arterial Blood Partial Pressure O2 61.3 mmHg (75.0-100.0) L Arterial Blood HCO3 13.3 mmol/L (22.0-26.0) *L Arterial Blood Oxygen Saturation 89.3 % (95-100) *L Arterial Blood Base Excess -10.8 (-2-2) *L Saul Test Positive Magnesium Level 1.9 MG/DL (1.8-2.4) White Blood Count 18.8 K/UL (4.8-10.8) #H Red Blood Count 3.83 M/UL (4.70-6.10) L Hemoglobin 11.4 G/DL (14.2-18.0) L Hematocrit 33.3 % (42.0-52.0) L Mean Corpuscular Volume 87 FL (80-99) Mean Corpuscular Hemoglobin 29.7 PG (27.0-31.0) Mean Corpuscular Hemoglobin Concent 34.1 G/DL (32.0-36.0) Red Cell Distribution Width 12.9 % (11.6-14.8) Platelet Count 134 K/UL (150-450) L Mean Platelet Volume 8.8 FL (6.5-10.1) Neutrophils (%) (Auto) % (45.0-75.0) Lymphocytes (%) (Auto) % (20.0-45.0) Monocytes (%) (Auto) % (1.0-10.0) Eosinophils (%) (Auto) % (0.0-3.0) Basophils (%) (Auto) % (0.0-2.0) Differential Total Cells Counted 100 Neutrophils % (Manual) 89 % (45-75) H Lymphocytes % (Manual) 2 % (20-45) L Monocytes % (Manual) 4 % (1-10) Eosinophils % (Manual) 3 % (0-3) Basophils % (Manual) 0 % (0-2) Band Neutrophils 2 % (0-8) Platelet Estimate Decreased L Platelet Morphology Normal Hypochromasia 1+ Anisocytosis 1+ Sodium Level 142 MMOL/L (136-145) Potassium Level 3.5 MMOL/L (3.5-5.1) Chloride Level 108 MMOL/L (98-107) H Carbon Dioxide Level 21 MMOL/L (21-32) Anion Gap 13 mmol/L (5-15) Blood Urea Nitrogen 36 mg/dL (7-18) H Creatinine 2.5 MG/DL (0.55-1.30) H Estimat Glomerular Filtration Rate 25.4 mL/min (>60) Glucose Level 103 MG/DL (74-106) Lactic Acid Level 3.30 mmol/L (0.4-2.0) H 3.20 mmol/L (0.66-2.22) H Calcium Level 7.5 MG/DL (8.5-10.1) L Total Bilirubin 0.5 MG/DL (0.2-1.0) Direct Bilirubin 0.2 MG/DL (0.0-0.3) Aspartate Amino Transf (AST/SGOT) 129 U/L (15-37) H Alanine Aminotransferase (ALT/SGPT) 42 U/L (12-78) Alkaline Phosphatase 61 U/L (46-116) Troponin I 0.348 ng/mL (0.000-0.056) Total Protein 5.2 G/DL (6.4-8.2) L Albumin 1.8 G/DL (3.4-5.0) L Lipase 1068 U/L (73-393) H Test 06/16/19 10:05 06/16/19 12:00 Arterial Blood pH 7.363 (7.350-7.450) Arterial Blood Partial Pressure CO2 26.9 mmHg (35.0-45.0) L Arterial Blood Partial Pressure O2 80.1 mmHg (75.0-100.0) Arterial Blood HCO3 15.0 mmol/L (22.0-26.0) *L Arterial Blood Oxygen Saturation 95.3 % (95-100) Arterial Blood Base Excess -9.1 (-2-2) *L Saul Test Positive Sodium Level Pending Potassium Level Pending Chloride Level Pending Carbon Dioxide Level Pending Blood Urea Nitrogen Pending Creatinine Pending Estimat Glomerular Filtration Rate Pending Glucose Level Pending Lactic Acid Level Pending Calcium Level Pending Microbiology Date/Time Source Procedure Growth Status 06/15/19 20:05 Blood Blood Culture - Preliminary Resulted 06/15/19 19:50 Blood Blood Culture - Preliminary Resulted Height (Feet): 5 Height (Inches): 7.00 Weight (Pounds): 232 Medications Current Medications Medications (Trade) Dose Ordered Sig/Arley Route PRN Reason Start Time Stop Time Status Last Admin Dose Admin Acetaminophen (Tylenol) 650 mg Q4H PRN ORAL Mild Pain (Pain Scale 1-3) 06/15/19 22:45 07/15/19 22:44 Albuterol/ Ipratropium (Albuterol/ Ipratropium) 3 ml Q4H PRN HHN Shortness of Breath 06/16/19 01:00 06/21/19 00:59 Aspirin (ASA) 81 mg DAILY NG 06/16/19 09:00 07/16/19 08:59 Barium Sulfate (Readi-Cat 2) 450 ml NOW PRN ORAL Radiology Procedure 06/15/19 20:00 06/17/19 20:00 06/15/19 21:08 Bisacodyl (Dulcolax) 10 mg DAILYPRN PRN RECTAL Constipation 06/15/19 22:45 07/15/19 22:44 Cefepime HCl 1 gm/ Dextrose 55 ml @ 110 mls/hr EVERY 12 HOURS IVPB 06/16/19 09:00 06/23/19 08:59 06/16/19 09:27 Chlorhexidine Gluconate (Mena-Hex 2%) 1 applic DAILY@2000 TOPIC 06/16/19 20:00 07/16/19 19:59 Dextrose (Dextrose 50%) 25 ml Q30M PRN IV Hypoglycemia 06/16/19 01:00 07/16/19 00:59 Dextrose (Dextrose 50%) 50 ml Q30M PRN IV Hypoglycemia 06/16/19 01:00 07/16/19 00:59 Dextrose/Lactated Ringer's 1,000 ml @ 125 mls/hr Q8H IV 06/16/19 11:30 07/16/19 11:29 06/16/19 12:17 Docusate Sodium (Colace) 100 mg EVERY 12 HOURS ORAL 06/16/19 09:00 07/16/19 08:59 Heparin Sodium (Porcine) (Heparin 5000 units/ml) 5,000 units EVERY 12 HOURS SUBQ 06/16/19 09:00 07/16/19 08:59 Future Hold Hydromorphone HCl (Dilaudid) 0.5 mg Q4H PRN IVP Moderate Pain (Pain Scale 4-6) 06/16/19 04:32 06/23/19 04:31 06/16/19 12:17 Insulin Aspart (NovoLOG) Q6HR SUBQ 06/16/19 06:00 07/16/19 05:59 Ipratropium [place] (Atrovent) 500 mcg Q4H PRN HHN Shortness of Breath 06/16/19 04:50 06/21/19 04:49 UNV Levofloxacin 150 ml @ 100 mls/hr Q48H IVPB 06/17/19 21:00 06/24/19 20:59 Magnesium Hydroxide (Mom) 30 ml HSPRN PRN ORAL Constipation 06/15/19 22:45 07/15/19 22:44 Ondansetron HCl (Zofran) 4 mg Q6H PRN IVP Nausea & Vomiting 06/15/19 22:45 07/15/19 22:44 Pantoprazole (Protonix) 40 mg DAILY IVP 06/16/19 09:00 07/16/19 08:59 06/16/19 09:00 Phenylephrine HCl 50 mg/Dextrose 250 ml @ 0 mls/hr Q24H IV 06/16/19 08:30 07/16/19 08:29 Assessment/Plan Diagnosis Beason I: 73 year old man with HTN, IDDM, ? history of CVA who presented [place] [facility] [facility] [place],vomiting. #sepsis -admit to medical ICU -IV hydration -Broad spectrum antibiotics -ID eval -Infectious workup ongoing -check lactate levels #acute hypoxic resp failure without hypercarbia -placed on BiPAP for hypoxemia -continue inhaled bronchodilators -Pulm/CCM eval appreciated #acute kidney injury on CKD, possible ATN -IV hydration -Nephrology eval -monitor BMP -avoid nephrotoxic meds #acute pancreatitis -NPO -IV hydration -GI consulted #Hypokalemia, hypomagnesemia -replace and monitor labs #lactic acidosis #HTN -hold anti-hypertensives due to low bps #DM type 2 -ISS VTE PPx HSQ .I spent 75 minutes on this patient's case, and 37 mins was dedicated to critical care Critical Care Services performed include: Telemetry Review Hemodynamic measurement interpretation Laboratory data review and interpretation Radiology image review and interpretation Interpretation of ABG's Discussion of patient's care with ICU team, ICU Nursing staff and/or consulting services Harinder Ochoa MD Jun 16, 2019 12:50
[2019-06-16 12:56] LABS: ANION GAP 15 mmol/L (5-15); BLOOD UREA NITROGEN 44 mg/dL (7-18); CARBON DIOXIDE 19 MMOL/L (21-32); CHLORIDE 111 MMOL/L (98-107); CREATININE 2.9 MG/DL (0.55-1.30); POTASSIUM 3.6 MMOL/L (3.5-5.1); SODIUM 145 MMOL/L (136-145)
[2019-06-16] MEDS ORDERED: Lidocaine 1% Plain 30 ml INJ SCH (13:00)
[2019-06-16] MEDS ORDERED: Heparin1,000 units/500ml Premix(Conc:2 units/ml) IV SCH (13:00)
--- NOTE | 2019-06-16 13:30 | Consultation ---
History of Present Illness General Date patient seen: Jun 16, 2019 Time patient seen: 13:23 Chief Complaint: Generalized Weakness Referring physician: LEILA LOVETT Reason for Consultation: DIARRHEA Present Illness HPI This is a 73 year old male with past medical history signficant for insulin dependent DM, hypertension, possible CVA on plavix brought by EMS with chief nausea vomiting and diarrhea for the last few days. Paramedics found him with blood pressure of 86 in the field. They gave him of 250 fluid bolus and his blood pressure opal to 125 systolic. His glucose was also 124. The diarrhea has been brown without any blood. He is never had this problem before.The patient smokes. He has heard himself wheezing. He denies productive cough. patient seen and examined in the ICU. he is currently on bipap. Further history limited due to clinical condition. Allergies: Coded Allergies: No Known Allergies (Unverified , 06/02/19) Medication History Scheduled Acarbose* (Precose*), 50 MG ORAL THREE TIMES A DAY, (Reported) Amlodipine Besylate* (Amlodipine Besylate*), 10 MG ORAL DAILY, (Reported) Clonidine Hcl* (Catapres*), 0.2 MG ORAL Q6HR, (Reported) Clopidogrel* (Clopidogrel*), 75 MG ORAL DAILY, (Reported) Folic Acid* (Folic Acid*), 1 MG ORAL DAILY, (Reported) Insulin Glargine (Lantus), 0 SUBQ BEDTIME, (Reported) Lisinopril (Lisinopril*), 40 MG ORAL DAILY, (Reported) Metformin Hcl* (Metformin Hcl*), 500 MG ORAL TWICE A DAY, (Reported) Simvastatin (Zocor), 5 MG ORAL BEDTIME, (Reported) Miscellaneous Medications Aspirin (Court Chewable), 81 MG PO, (Reported) Patient History Healthcare decision maker Resuscitation status Full Code Advanced Directive on File Review of Systems Constitutional: Reports: no symptoms Eye: Reports: no symptoms ENT: Reports: no symptoms Respiratory: Reports: cough, shortness of breath, wheezing, NEFF Cardiovascular: Reports: chest pain, palpitations Gastrointestinal: Reports: abdominal pain, diarrhea, nausea Genitourinary: Reports: no symptoms Musculoskeletal: Reports: no symptoms Skin: Reports: no symptoms Psychiatric: Reports: no symptoms Neurological: Reports: no symptoms Endocrine: Reports: no symptoms Hematologic/Lymphatic: Reports: no symptoms Physical Exam General Appearance: lethargic, mild distress Lines, tubes and drains: peripheral HEENT: normocephalic, atraumatic, anicteric, mucous membranes moist, PERRL Neck: non-tender, normal alignment, supple, normal inspection Respiratory/Chest: respiratory distress, crackles/rales, rhonchi - bilaterally Cardiovascular/Chest: normal peripheral pulses, regular rhythm, tachycardia Abdomen: normal bowel sounds, non tender, soft, no organomegaly, no mass Extremities: normal range of motion, non-tender, normal inspection, no calf tenderness, normal capillary refill, non-pitting Skin Exam: normal pigmentation, warm/dry, cyanotic Neurologic: coil cutter II-XII grossly normal, no motor/sensory deficits Last 24 Hour Vital Signs Date Time Temp Pulse Resp B/P (MAP) Pulse Ox O2 Delivery O2 Flow Rate FiO2 06/16/19 10:58 108 31 97 50 06/16/19 08:55 117 36 94 50 06/16/19 08:30 114 129/53 06/16/19 07:23 106 13 100 Bi-Pap 50 06/16/19 07:22 100 Bi-Pap 50 06/16/19 07:21 105 30 100 50 06/16/19 07:00 102 21 80/49 (59) 99 06/16/19 06:45 103 7 85/52 (63) 100 06/16/19 06:30 103 9 77/51 (60) 100 06/16/19 06:00 113 06/16/19 06:00 108 22 95/54 (68) 100 06/16/19 05:00 113 26 104/63 (77) 99 06/16/19 04:50 121 28 96 50 06/16/19 04:00 98.6 115 32 105/60 (75) 91 06/16/19 04:00 Venturi Mask 8.0 06/16/19 03:08 95 Venturi Mask 8.0 40 06/16/19 03:00 111 18 111/66 (81) 94 06/16/19 02:00 104 25 122/70 (87) 97 06/16/19 01:00 110 13 106/63 (77) 94 06/16/19 00:36 108 06/16/19 00:30 Nasal Cannula 2.0 06/16/19 00:10 98.3 115 24 123/68 (86) 95 06/16/19 00:05 98.5 114 25 117/63 95 Nasal Cannula 2.0 28 06/15/19 22:57 95 Nasal Cannula 2.0 28 06/15/19 22:30 98.2 111 24 125/63 92 Nasal Cannula 2.0 28 06/15/19 20:45 98.2 135 23 133/74 99 Nasal Cannula 2.0 28 06/15/19 20:38 120 24 98 Nasal Cannula 2.0 28 114 24 95 06/15/19 20:00 98.2 125 25 112/82 87 Nasal Cannula 2.0 06/15/19 19:55 98.2 125 16 112/82 98 Room Air 06/15/19 19:55 125 16 Room Air 06/15/19 19:44 98.2 120 16 123/35 (64) 98 Room Air Intake and Output 06/15/19 06/16/19 19:00 07:00 Intake Total 585 ml Output Total 200 ml Balance 385 ml Intake Oral 50 ml IV Total 535 ml Output Urine Total 200 ml # Voids 4 # Bowel Movements 2 Laboratory Tests Test 06/15/19 19:53 06/15/19 20:05 06/15/19 21:48 06/15/19 23:05 Venous Blood pH 7.348 Venous Blood Partial Pressure CO2 35.6 Venous Blood Partial Pressure O2 < 45.3 Venous Blood HCO3 19.1 Venous Blood Total Carbon Dioxide 35.6 Venous Blood Base Excess -5.7 Venous Blood Carboxyhemoglobin 2.1 % (0.5-1.5) H Methemoglobin 0.5 White Blood Count 4.1 K/UL (4.8-10.8) L Red Blood Count 4.10 M/UL (4.70-6.10) L Hemoglobin 12.1 G/DL (14.2-18.0) L Hematocrit 35.0 % (42.0-52.0) L Mean Corpuscular Volume 85 FL (80-99) Mean Corpuscular Hemoglobin 29.5 PG (27.0-31.0) Mean Corpuscular Hemoglobin Concent 34.6 G/DL (32.0-36.0) Red Cell Distribution Width 12.7 % (11.6-14.8) Platelet Count 187 K/UL (150-450) Mean Platelet Volume 8.5 FL (6.5-10.1) Neutrophils (%) (Auto) % (45.0-75.0) Lymphocytes (%) (Auto) % (20.0-45.0) Monocytes (%) (Auto) % (1.0-10.0) Eosinophils (%) (Auto) % (0.0-3.0) Basophils (%) (Auto) % (0.0-2.0) Prothrombin Time 12.0 SEC (9.30-11.50) H Prothromb Time International Ratio 1.1 (0.9-1.1) Activated Partial Thromboplast Time 29 SEC (23-33) Sodium Level 141 MMOL/L (136-145) Potassium Level 3.1 MMOL/L (3.5-5.1) L Chloride Level 107 MMOL/L (98-107) Carbon Dioxide Level 18 MMOL/L (21-32) L Anion Gap 16 mmol/L (5-15) H Blood Urea Nitrogen 33 mg/dL (7-18) H Creatinine 2.1 MG/DL (0.55-1.30) H Estimat Glomerular Filtration Rate 31.1 mL/min (>60) Glucose Level 108 MG/DL (74-106) H Lactic Acid Level 3.70 mmol/L (0.4-2.0) H 3.60 mmol/L (0.66-2.22) H Calcium Level 8.0 MG/DL (8.5-10.1) L Magnesium Level 1.4 MG/DL (1.8-2.4) L Total Bilirubin 0.5 MG/DL (0.2-1.0) Aspartate Amino Transf (AST/SGOT) 22 U/L (15-37) Alanine Aminotransferase (ALT/SGPT) 24 U/L (12-78) Alkaline Phosphatase 109 U/L (46-116) Total Creatine Kinase 198 U/L (26-308) Troponin I 0.065 ng/mL (0.000-0.056) Total Protein 5.9 G/DL (6.4-8.2) L Albumin 2.0 G/DL (3.4-5.0) L Globulin 3.9 g/dL Albumin/Globulin Ratio 0.5 (1.0-2.7) L Triglycerides Level 48 MG/DL (30-150) Lipase 1013 U/L (73-393) H Urine Color Iman Urine Appearance Cloudy Urine pH 5 (4.5-8.0) Urine Specific Stephenson 1.020 (1.005-1.035) Urine Protein 4+ (NEGATIVE) H Urine Glucose (UA) 1+ (NEGATIVE) H Urine Ketones Negative (NEGATIVE) Urine Blood 4+ (NEGATIVE) H Urine Nitrite Negative (NEGATIVE) Urine Bilirubin Negative (NEGATIVE) Urine Ictotest Negative (NEGATIVE) Urine Urobilinogen Normal MG/DL (0.0-1.0) Urine Leukocyte Esterase 1+ (NEGATIVE) H Urine RBC 20-30 /HPF (0 - 0) H Urine WBC 5-10 /HPF (0 - 0) H Urine Squamous Epithelial Cells Few /LPF (NONE/OCC) Urine Amorphous Sediment Many /LPF (NONE) H Urine Bacteria Many /HPF (NONE) H Urine Granular Casts 0-2 /LPF (NONE) H Urine Random Sodium 33 mmol/L (20-110) Urine Creatinine 130.1 MG/DL (30.0-125.0) H Test 06/16/19 04:33 06/16/19 06:00 06/16/19 06:13 06/16/19 08:35 Arterial Blood pH 7.336 (7.350-7.450) Arterial Blood Partial Pressure CO2 25.5 mmHg (35.0-45.0) L Arterial Blood Partial Pressure O2 61.3 mmHg (75.0-100.0) L Arterial Blood HCO3 13.3 mmol/L (22.0-26.0) *L Arterial Blood Oxygen Saturation 89.3 % (95-100) *L Arterial Blood Base Excess -10.8 (-2-2) *L Saul Test Positive Magnesium Level 1.9 MG/DL (1.8-2.4) White Blood Count 18.8 K/UL (4.8-10.8) #H Red Blood Count 3.83 M/UL (4.70-6.10) L Hemoglobin 11.4 G/DL (14.2-18.0) L Hematocrit 33.3 % (42.0-52.0) L Mean Corpuscular Volume 87 FL (80-99) Mean Corpuscular Hemoglobin 29.7 PG (27.0-31.0) Mean Corpuscular Hemoglobin Concent 34.1 G/DL (32.0-36.0) Red Cell Distribution Width 12.9 % (11.6-14.8) Platelet Count 134 K/UL (150-450) L Mean Platelet Volume 8.8 FL (6.5-10.1) Neutrophils (%) (Auto) % (45.0-75.0) Lymphocytes (%) (Auto) % (20.0-45.0) Monocytes (%) (Auto) % (1.0-10.0) Eosinophils (%) (Auto) % (0.0-3.0) Basophils (%) (Auto) % (0.0-2.0) Differential Total Cells Counted 100 Neutrophils % (Manual) 89 % (45-75) H Lymphocytes % (Manual) 2 % (20-45) L Monocytes % (Manual) 4 % (1-10) Eosinophils % (Manual) 3 % (0-3) Basophils % (Manual) 0 % (0-2) Band Neutrophils 2 % (0-8) Platelet Estimate Decreased L Platelet Morphology Normal Hypochromasia 1+ Anisocytosis 1+ Sodium Level 142 MMOL/L (136-145) Potassium Level 3.5 MMOL/L (3.5-5.1) Chloride Level 108 MMOL/L (98-107) H Carbon Dioxide Level 21 MMOL/L (21-32) Anion Gap 13 mmol/L (5-15) Blood Urea Nitrogen 36 mg/dL (7-18) H Creatinine 2.5 MG/DL (0.55-1.30) H Estimat Glomerular Filtration Rate 25.4 mL/min (>60) Glucose Level 103 MG/DL (74-106) Lactic Acid Level 3.30 mmol/L (0.4-2.0) H 3.20 mmol/L (0.66-2.22) H Calcium Level 7.5 MG/DL (8.5-10.1) L Total Bilirubin 0.5 MG/DL (0.2-1.0) Direct Bilirubin 0.2 MG/DL (0.0-0.3) Aspartate Amino Transf (AST/SGOT) 129 U/L (15-37) H Alanine Aminotransferase (ALT/SGPT) 42 U/L (12-78) Alkaline Phosphatase 61 U/L (46-116) Troponin I 0.348 ng/mL (0.000-0.056) Total Protein 5.2 G/DL (6.4-8.2) L Albumin 1.8 G/DL (3.4-5.0) L Lipase 1068 U/L (73-393) H Test 06/16/19 10:05 06/16/19 12:00 Arterial Blood pH 7.363 (7.350-7.450) Arterial Blood Partial Pressure CO2 26.9 mmHg (35.0-45.0) L Arterial Blood Partial Pressure O2 80.1 mmHg (75.0-100.0) Arterial Blood HCO3 15.0 mmol/L (22.0-26.0) *L Arterial Blood Oxygen Saturation 95.3 % (95-100) Arterial Blood Base Excess -9.1 (-2-2) *L Saul Test Positive Sodium Level 145 MMOL/L (136-145) Potassium Level 3.6 MMOL/L (3.5-5.1) Chloride Level 111 MMOL/L (98-107) H Carbon Dioxide Level 19 MMOL/L (21-32) L Anion Gap 15 mmol/L (5-15) Blood Urea Nitrogen 44 mg/dL (7-18) H Creatinine 2.9 MG/DL (0.55-1.30) H Estimat Glomerular Filtration Rate 21.4 mL/min (>60) Glucose Level 103 MG/DL (74-106) Lactic Acid Level Pending Calcium Level 7.0 MG/DL (8.5-10.1) L Microbiology Date/Time Source Procedure Growth Status 06/15/19 20:05 Blood Blood Culture - Preliminary Resulted 06/15/19 19:50 Blood Blood Culture - Preliminary Resulted Height (Feet): 5 Height (Inches): 7.00 Weight (Pounds): 232 Medications Current Medications Medications (Trade) Dose Ordered Sig/Arley Route PRN Reason Start Time Stop Time Status Last Admin Dose Admin Acetaminophen (Tylenol) 650 mg Q4H PRN ORAL Mild Pain (Pain Scale 1-3) 06/15/19 22:45 07/15/19 22:44 Albuterol/ Ipratropium (Albuterol/ Ipratropium) 3 ml Q4H PRN HHN Shortness of Breath 06/16/19 01:00 06/21/19 00:59 Aspirin (ASA) 81 mg DAILY NG 06/16/19 09:00 07/16/19 08:59 Barium Sulfate (Readi-Cat 2) 450 ml NOW PRN ORAL Radiology Procedure 06/15/19 20:00 06/17/19 20:00 06/15/19 21:08 Bisacodyl (Dulcolax) 10 mg DAILYPRN PRN RECTAL Constipation 06/15/19 22:45 07/15/19 22:44 Cefepime HCl 1 gm/ Dextrose 55 ml @ 110 mls/hr EVERY 12 HOURS IVPB 06/16/19 09:00 06/23/19 08:59 06/16/19 09:27 Chlorhexidine Gluconate (Mena-Hex 2%) 1 applic DAILY@2000 TOPIC 06/16/19 20:00 07/16/19 19:59 Dextrose (Dextrose 50%) 25 ml Q30M PRN IV Hypoglycemia 06/16/19 01:00 07/16/19 00:59 Dextrose (Dextrose 50%) 50 ml Q30M PRN IV Hypoglycemia 06/16/19 01:00 07/16/19 00:59 Dextrose/Lactated Ringer's 1,000 ml @ 125 mls/hr Q8H IV 06/16/19 11:30 07/16/19 11:29 06/16/19 12:17 Docusate Sodium (Colace) 100 mg EVERY 12 HOURS ORAL 06/16/19 09:00 07/16/19 08:59 Heparin Sodium (Porcine) (Heparin 5000 units/ml) 5,000 units EVERY 12 HOURS SUBQ 06/16/19 09:00 07/16/19 08:59 Future Hold Heparin Sodium/ Sodium Chloride (Heparin 1000 units/500ml Premix) 1,000 unit ONCE IV 06/16/19 13:00 06/16/19 23:59 Hydromorphone HCl (Dilaudid) 0.5 mg Q4H PRN IVP Moderate Pain (Pain Scale 4-6) 06/16/19 04:32 06/23/19 04:31 06/16/19 12:17 Insulin Aspart (NovoLOG) Q6HR SUBQ 06/16/19 06:00 07/16/19 05:59 Levofloxacin 150 ml @ 100 mls/hr Q48H IVPB 06/17/19 21:00 3/3/20 20:59 Lidocaine HCl (Xylocaine 1% 30ml) 30 ml ONCE INJ 06/16/19 13:00 06/16/19 23:59 Magnesium Hydroxide (Mom) 30 ml HSPRN PRN ORAL Constipation 06/15/19 22:45 07/15/19 22:44 Ondansetron HCl (Zofran) 4 mg Q6H PRN IVP Nausea & Vomiting 06/15/19 22:45 07/15/19 22:44 Pantoprazole (Protonix) 40 mg DAILY IVP 06/16/19 09:00 07/16/19 08:59 06/16/19 09:00 Phenylephrine HCl 50 mg/Dextrose 250 ml @ 0 mls/hr Q24H IV 06/16/19 08:30 07/16/19 08:29 Assessment/Plan Status: stable Assessment/Plan: Assessment/Plan 73 year old man with HTN, IDDM, ? history of CVA who presented to [facility] ED with nausea,vomiting and hypertensive urgency and SOB -Empiric ABX and IV fluids -BiPAP -Pulmonary support -Echocardiogram pending -Replete electrolytes -BP medications held -Hold pressors for now, monitor UOP -Midodrine Prn -Serial Troponin - likely demand ischemia -Stress test prior to d/c when stable .I spent 75 minutes on this patient's case Critical Care Services performed include: Telemetry Review Hemodynamic measurement interpretation Laboratory data review and interpretation Radiology image review and interpretation Interpretation of ABG's Discussion of patient's care with ICU team, ICU Nursing staff and/or consulting services Paul Reed MD Jun 16, 2019 13:30
--- NOTE | 2019-06-16 15:33 | NUR ---
SPORTS COORDINATORCORPORATE TRAVEL CONSULTANT 73 YO MALE BIBA FROM HOME TO ER CC N/V/D X 3 DAYS WEAKNESS X 3 HOURS B/P 83/35 NS 250ML GIVEN IN THE FIELD SI; HYPOTENSION,PANCREATITIS T. 98.3 HR 120 RR 16 B/P 123/35 2L NC O2 SAT @ 98% WBC 4 K 3.1 LACTID ACID 3.70 LIPASE 1015 TROP 0.065 CXR= Basilar atelectasis IS: IV BOLUS NS X 2LITERS BENADRYL IV SOLU MEDROL IV PEPCID IV CEFEPIME IV LEVAQUIN IV REGLAN IV ADMITTED TO ICU@ 0105 ICU STATUS DCP RETURN HOME
--- NOTE | 2019-06-16 15:50 | NUR ---
NURSE NOTES: Notified Dr Whitman regarding most recent ABG result. Received order to change BiPAP setting to 15/5 and take ABG again at 0600 am. Orders read back, verified, and placed.
--- NOTE | 2019-06-16 16:00 | NUR ---
NURSE NOTES: Patient alert to name, place, and time but confused to purpose. Patient remains restless but mentation is improved and patient able to communicate better. Patient remains on BiPAP 15/5 with 50% FiO2. Patient tolerating with no distress and SPO2 100% and high RR of 30. Patient remains NPO. Rivero in place and draining dark mary urine. Left hand 20 gauge peripheral IV, left AC 20 gauge peripheral IV remain and left upper arm newly placed PICC line are patent, asymptomatic, and flushed at this time. D5LR running at 125mL/hr. Patient blood pressure within normal limits. Will monitor and administer phenylephrine per order if necessary. Bed in low position with bed alarm on and call light in reach. Patient repositioned and oral care done and bed bath done at this time. Will continue to monitor.
--- NOTE | 2019-06-16 16:02 | NUR ---
RADIOLOGY NOTE: LEFT UPPER EXTREMITY PICC LINE PLACEMENT BY DR. VARINDER JOSEPH. FA
--- NOTE | 2019-06-16 16:08 | Diagnostic Imaging Report ---
Indications: Needs long-term IV access Technique: Procedure performed at bedside. Procedural timeout performed. Ultrasound confirms patent compressible left basilic vein. Total sterile technique, including sterile probe cover and sterile gel, sterile gloves, hand hygiene, hat, mask,, sterile gown, large sterile drape, and preparation with 2% chlorhexidine utilized. Local anesthesia with 1% lidocaine. Under real-time ultrasound guidance, puncture is vein using 21-gauge needle, passage 0.018 guidewire, exchange for 4 [place] peel-away sheath. 4 [place] Bard dual-lumen power PICC cut to 46 cm. It was inserted through the peel-away sheath. Peel-away sheath and guidewire removed. Catheter fixed to the skin. Both catheter ports aspirated and flushed. Patient tolerated procedure well, without immediate complication. Followup chest x-ray obtained, documents catheter tip position at the cavoatrial junction Impression: Successful bedside placement of left arm PICC under sonographic guidance, as described above.
--- NOTE | 2019-06-16 16:42 | Infectious Diseases Prog Note ---
Assessment/Plan Assessment/Plan Full consult dictated: A) 1) gram neg bacteremia, pancreatitis, ? biliary infection, uti, sepsis, leukocytosis, cap, sob, bipap, sirs+ 2) pmh noted 3) allergies - nkda P) 1) meropenem and levofloxacin 2) check cultures, labs, us, chest x-ray 3) thank you Subjective Allergies: Coded Allergies: No Known Allergies (Unverified , 06/02/19) Objective Vital Signs Last 24 Hour Vital Signs Date Time Temp Pulse Resp B/P (MAP) Pulse Ox O2 Delivery O2 Flow Rate FiO2 06/16/19 16:00 50 06/16/19 16:00 98.5 100 23 97/53 (68) 97 06/16/19 15:00 101 24 91/44 (60) 06/16/19 14:51 100 23 94 50 06/16/19 14:00 103 22 91/47 (62) 06/16/19 13:00 105 26 95/50 (65) 94 06/16/19 12:00 98.7 107 31 99/54 (69) 97 06/16/19 12:00 50 06/16/19 11:00 111 30 104/56 (72) 97 06/16/19 10:58 108 31 97 50 06/16/19 10:00 113 31 95/55 (68) 98 06/16/19 09:00 115 34 120/56 (77) 96 06/16/19 08:55 117 36 94 50 06/16/19 08:30 114 129/53 06/16/19 08:00 50 06/16/19 08:00 99.1 109 27 111/60 (77) 98 06/16/19 07:23 106 13 100 Bi-Pap 50 06/16/19 07:22 100 Bi-Pap 50 06/16/19 07:21 105 30 100 50 06/16/19 07:00 102 21 80/49 (59) 99 06/16/19 06:45 103 7 85/52 (63) 100 06/16/19 06:30 103 9 77/51 (60) 100 06/16/19 06:00 113 06/16/19 06:00 108 22 95/54 (68) 100 06/16/19 05:00 113 26 104/63 (77) 99 06/16/19 04:50 121 28 96 50 06/16/19 04:00 98.6 115 32 105/60 (75) 91 06/16/19 04:00 Venturi Mask 8.0 06/16/19 03:08 95 Venturi Mask 8.0 40 06/16/19 03:00 111 18 111/66 (81) 94 06/16/19 02:00 104 25 122/70 (87) 97 06/16/19 01:00 110 13 106/63 (77) 94 06/16/19 00:36 108 06/16/19 00:30 Nasal Cannula 2.0 06/16/19 00:10 98.3 115 24 123/68 (86) 95 06/16/19 00:05 98.5 114 25 117/63 95 Nasal Cannula 2.0 28 06/15/19 22:57 95 Nasal Cannula 2.0 28 06/15/19 22:30 98.2 111 24 125/63 92 Nasal Cannula 2.0 28 06/15/19 20:45 98.2 135 23 133/74 99 Nasal Cannula 2.0 28 06/15/19 20:38 120 24 98 Nasal Cannula 2.0 28 114 24 95 06/15/19 20:00 98.2 125 25 112/82 87 Nasal Cannula 2.0 06/15/19 19:55 98.2 125 16 112/82 98 Room Air 06/15/19 19:55 125 16 Room Air 06/15/19 19:44 98.2 120 16 123/35 (64) 98 Room Air Height (Feet): 5 Height (Inches): 7.00 Weight (Pounds): 232 Microbiology Date/Time Source Procedure Growth Status 06/15/19 20:05 Blood Blood Culture - Preliminary Resulted 06/15/19 19:50 Blood Blood Culture - Preliminary Resulted Laboratory Tests Test 06/15/19 19:53 06/15/19 20:05 06/15/19 21:48 06/15/19 23:05 Venous Blood pH 7.348 Venous Blood Partial Pressure CO2 35.6 Venous Blood Partial Pressure O2 < 45.3 Venous Blood HCO3 19.1 Venous Blood Total Carbon Dioxide 35.6 Venous Blood Base Excess -5.7 Venous Blood Carboxyhemoglobin 2.1 % (0.5-1.5) H Methemoglobin 0.5 White Blood Count 4.1 K/UL (4.8-10.8) L Red Blood Count 4.10 M/UL (4.70-6.10) L Hemoglobin 12.1 G/DL (14.2-18.0) L Hematocrit 35.0 % (42.0-52.0) L Mean Corpuscular Volume 85 FL (80-99) Mean Corpuscular Hemoglobin 29.5 PG (27.0-31.0) Mean Corpuscular Hemoglobin Concent 34.6 G/DL (32.0-36.0) Red Cell Distribution Width 12.7 % (11.6-14.8) Platelet Count 187 K/UL (150-450) Mean Platelet Volume 8.5 FL (6.5-10.1) Neutrophils (%) (Auto) % (45.0-75.0) Lymphocytes (%) (Auto) % (20.0-45.0) Monocytes (%) (Auto) % (1.0-10.0) Eosinophils (%) (Auto) % (0.0-3.0) Basophils (%) (Auto) % (0.0-2.0) Prothrombin Time 12.0 SEC (9.30-11.50) H Prothromb Time International Ratio 1.1 (0.9-1.1) Activated Partial Thromboplast Time 29 SEC (23-33) Sodium Level 141 MMOL/L (136-145) Potassium Level 3.1 MMOL/L (3.5-5.1) L Chloride Level 107 MMOL/L (98-107) Carbon Dioxide Level 18 MMOL/L (21-32) L Anion Gap 16 mmol/L (5-15) H Blood Urea Nitrogen 33 mg/dL (7-18) H Creatinine 2.1 MG/DL (0.55-1.30) H Estimat Glomerular Filtration Rate 31.1 mL/min (>60) Glucose Level 108 MG/DL (74-106) H Lactic Acid Level 3.70 mmol/L (0.4-2.0) H 3.60 mmol/L (0.66-2.22) H Calcium Level 8.0 MG/DL (8.5-10.1) L Magnesium Level 1.4 MG/DL (1.8-2.4) L Total Bilirubin 0.5 MG/DL (0.2-1.0) Aspartate Amino Transf (AST/SGOT) 22 U/L (15-37) Alanine Aminotransferase (ALT/SGPT) 24 U/L (12-78) Alkaline Phosphatase 109 U/L (46-116) Total Creatine Kinase 198 U/L (26-308) Troponin I 0.065 ng/mL (0.000-0.056) Total Protein 5.9 G/DL (6.4-8.2) L Albumin 2.0 G/DL (3.4-5.0) L Globulin 3.9 g/dL Albumin/Globulin Ratio 0.5 (1.0-2.7) L Triglycerides Level 48 MG/DL (30-150) Lipase 1013 U/L (73-393) H Urine Color Iman Urine Appearance Cloudy Urine pH 5 (4.5-8.0) Urine Specific [place] 1.020 (1.005-1.035) Urine Protein 4+ (NEGATIVE) H Urine Glucose (UA) 1+ (NEGATIVE) H Urine Ketones Negative (NEGATIVE) Urine Blood 4+ (NEGATIVE) H Urine Nitrite Negative (NEGATIVE) Urine Bilirubin Negative (NEGATIVE) Urine Ictotest Negative (NEGATIVE) Urine Urobilinogen Normal MG/DL (0.0-1.0) Urine Leukocyte Esterase 1+ (NEGATIVE) H Urine RBC 20-30 /HPF (0 - 0) H Urine WBC 5-10 /HPF (0 - 0) H Urine Squamous Epithelial Cells Few /LPF (NONE/OCC) Urine Amorphous Sediment Many /LPF (NONE) H Urine Bacteria Many /HPF (NONE) H Urine Granular Casts 0-2 /LPF (NONE) H Urine Random Sodium 33 mmol/L (20-110) Urine Creatinine 130.1 MG/DL (30.0-125.0) H Test 06/16/19 04:33 06/16/19 06:00 06/16/19 06:13 06/16/19 08:35 Arterial Blood pH 7.336 (7.350-7.450) Arterial Blood Partial Pressure CO2 25.5 mmHg (35.0-45.0) L Arterial Blood Partial Pressure O2 61.3 mmHg (75.0-100.0) L Arterial Blood HCO3 13.3 mmol/L (22.0-26.0) *L Arterial Blood Oxygen Saturation 89.3 % (95-100) *L Arterial Blood Base Excess -10.8 (-2-2) *L Saul Test Positive Magnesium Level 1.9 MG/DL (1.8-2.4) White Blood Count 18.8 K/UL (4.8-10.8) #H Red Blood Count 3.83 M/UL (4.70-6.10) L Hemoglobin 11.4 G/DL (14.2-18.0) L Hematocrit 33.3 % (42.0-52.0) L Mean Corpuscular Volume 87 FL (80-99) Mean Corpuscular Hemoglobin 29.7 PG (27.0-31.0) Mean Corpuscular Hemoglobin Concent 34.1 G/DL (32.0-36.0) Red Cell Distribution Width 12.9 % (11.6-14.8) Platelet Count 134 K/UL (150-450) L Mean Platelet Volume 8.8 FL (6.5-10.1) Neutrophils (%) (Auto) % (45.0-75.0) Lymphocytes (%) (Auto) % (20.0-45.0) Monocytes (%) (Auto) % (1.0-10.0) Eosinophils (%) (Auto) % (0.0-3.0) Basophils (%) (Auto) % (0.0-2.0) Differential Total Cells Counted 100 Neutrophils % (Manual) 89 % (45-75) H Lymphocytes % (Manual) 2 % (20-45) L Monocytes % (Manual) 4 % (1-10) Eosinophils % (Manual) 3 % (0-3) Basophils % (Manual) 0 % (0-2) Band Neutrophils 2 % (0-8) Platelet Estimate Decreased L Platelet Morphology Normal Hypochromasia 1+ Anisocytosis 1+ Sodium Level 142 MMOL/L (136-145) Potassium Level 3.5 MMOL/L (3.5-5.1) Chloride Level 108 MMOL/L (98-107) H Carbon Dioxide Level 21 MMOL/L (21-32) Anion Gap 13 mmol/L (5-15) Blood Urea Nitrogen 36 mg/dL (7-18) H Creatinine 2.5 MG/DL (0.55-1.30) H Estimat Glomerular Filtration Rate 25.4 mL/min (>60) Glucose Level 103 MG/DL (74-106) Lactic Acid Level 3.30 mmol/L (0.4-2.0) H 3.20 mmol/L (0.66-2.22) H Calcium Level 7.5 MG/DL (8.5-10.1) L Total Bilirubin 0.5 MG/DL (0.2-1.0) Direct Bilirubin 0.2 MG/DL (0.0-0.3) Aspartate Amino Transf (AST/SGOT) 129 U/L (15-37) H Alanine Aminotransferase (ALT/SGPT) 42 U/L (12-78) Alkaline Phosphatase 61 U/L (46-116) Troponin I 0.348 ng/mL (0.000-0.056) Total Protein 5.2 G/DL (6.4-8.2) L Albumin 1.8 G/DL (3.4-5.0) L Lipase 1068 U/L (73-393) H Test 06/16/19 10:05 06/16/19 12:00 06/16/19 14:01 06/16/19 15:01 Arterial Blood pH 7.363 (7.350-7.450) 7.394 (7.350-7.450) Arterial Blood Partial Pressure CO2 26.9 mmHg (35.0-45.0) L 31.1 mmHg (35.0-45.0) L Arterial Blood Partial Pressure O2 80.1 mmHg (75.0-100.0) 76.8 mmHg (75.0-100.0) Arterial Blood HCO3 15.0 mmol/L (22.0-26.0) *L 16.7 mmol/L (22.0-26.0) *L Arterial Blood Oxygen Saturation 95.3 % (95-100) 94.0 % (95-100) L Arterial Blood Base Excess -9.1 (-2-2) *L -7.9 (-2-2) L Saul Test Positive Positive Sodium Level 145 MMOL/L (136-145) Potassium Level 3.6 MMOL/L (3.5-5.1) Chloride Level 111 MMOL/L (98-107) H Carbon Dioxide Level 19 MMOL/L (21-32) L Anion Gap 15 mmol/L (5-15) Blood Urea Nitrogen 44 mg/dL (7-18) H Creatinine 2.9 MG/DL (0.55-1.30) H Estimat Glomerular Filtration Rate 21.4 mL/min (>60) Glucose Level 103 MG/DL (74-106) Lactic Acid Level 2.00 mmol/L (0.4-2.0) Calcium Level 7.0 MG/DL (8.5-10.1) L Urine Random Total Protein 349 MG/DL (< 11.9) H Urine Random Sodium 21 mmol/L (20-110) Urine Creatinine 211.3 MG/DL (30.0-125.0) H Current Medications Medications (Trade) Dose Ordered Sig/Arley Route PRN Reason Start Time Stop Time Status Last Admin Dose Admin Acetaminophen (Tylenol) 650 mg Q4H PRN ORAL Mild Pain (Pain Scale 1-3) 06/15/19 22:45 07/15/19 22:44 Aspirin (ASA) 81 mg DAILY NG 06/16/19 09:00 07/16/19 08:59 Barium Sulfate (Readi-Cat 2) 450 ml NOW PRN ORAL Radiology Procedure 06/15/19 20:00 06/17/19 20:00 06/15/19 21:08 Bisacodyl (Dulcolax) 10 mg DAILYPRN PRN RECTAL Constipation 06/15/19 22:45 07/15/19 22:44 Cefepime HCl 1 gm/ Dextrose 55 ml @ 110 mls/hr EVERY 12 HOURS IVPB 06/16/19 09:00 06/23/19 08:59 06/16/19 09:27 Chlorhexidine Gluconate (Mena-Hex 2%) 1 applic DAILY@2000 TOPIC 06/16/19 20:00 07/16/19 19:59 Dextrose (Dextrose 50%) 25 ml Q30M PRN IV Hypoglycemia 06/16/19 01:00 07/16/19 00:59 Dextrose (Dextrose 50%) 50 ml Q30M PRN IV Hypoglycemia 06/16/19 01:00 07/16/19 00:59 Dextrose/Lactated Ringer's 1,000 ml @ 125 mls/hr Q8H IV 06/16/19 11:30 07/16/19 11:29 06/16/19 12:17 Docusate Sodium (Colace) 100 mg EVERY 12 HOURS ORAL 06/16/19 09:00 07/16/19 08:59 Heparin Sodium (Porcine) (Heparin 5000 units/ml) 5,000 units EVERY 12 HOURS SUBQ 06/16/19 21:00 07/16/19 20:59 Heparin Sodium/ Sodium Chloride (Heparin 1000 units/500ml Premix) 1,000 unit ONCE IV 06/16/19 13:00 06/16/19 23:59 Hydromorphone HCl (Dilaudid) 0.5 mg Q4H PRN IVP Moderate Pain (Pain Scale 4-6) 06/16/19 04:32 06/23/19 04:31 06/16/19 12:17 Insulin Aspart (NovoLOG) Q6HR SUBQ 06/16/19 06:00 07/16/19 05:59 Ipratropium [place] (Atrovent) 500 mcg Q4H PRN HHN Shortness of Breath 06/16/19 16:15 06/21/19 16:14 Levofloxacin 150 ml @ 100 mls/hr Q48H IVPB 06/17/19 21:00 06/24/19 20:59 Lidocaine HCl (Xylocaine 1% 30ml) 30 ml ONCE INJ 06/16/19 13:00 06/16/19 23:59 Magnesium Hydroxide (Mom) 30 ml HSPRN PRN ORAL Constipation 06/15/19 22:45 07/15/19 22:44 Ondansetron HCl (Zofran) 4 mg Q6H PRN IVP Nausea & Vomiting 06/15/19 22:45 07/15/19 22:44 Pantoprazole (Protonix) 40 mg DAILY IVP 06/16/19 09:00 07/16/19 08:59 06/16/19 09:00 Phenylephrine HCl 50 mg/Dextrose 250 ml @ 0 mls/hr Q24H IV 06/16/19 08:30 07/16/19 08:29 Pranay Waller MD Jun 16, 2019 16:42
--- NOTE | 2019-06-16 16:48 | Diagnostic Imaging Report ---
Indication: Shortness of breath and leg pain Technique: Grayscale and duplex images of the bilateral lower extremity veins Comparison: Findings: Bilaterally, grayscale and duplex images demonstrate no evidence of intraluminal thrombus. Normal phasic Doppler waveforms, demonstrating normal augmentation response and no evidence of valvular insufficiency. Greater saphenous vein(s) and tibial veins are patent. Normal compressibility. Impression: Negative for evidence of lower extremity deep venous thrombosis bilaterally
--- NOTE | 2019-06-16 17:02 | Diagnostic Imaging Report ---
Indication: Abnormal liver function tests, abnormal renal function tests, abnormal lipase Technique: Soares-scale and duplex images of the upper abdomen were obtained Comparison: No comparison sonograms. Reference made to abdomen pelvis CT 06/15/2019 Findings: 10.3 x 10.7 x 8 cm unilocular cystic mass is seen anterior pancreatic tail and posterolateral to the lesser curvature the stomach, corresponding to the findings reported on recent CT scan. Subtle contents are anechoic with layering of debris. There are is slight mural nodularity. There is marked increase through transmission. Gallbladder has been removed. Common bile duct measures 7 mm in diameter. No intrahepatic biliary ductal dilatation. Liver demonstrates normal echogenicity, no focal abnormality. It is somewhat enlarged. Portal vein and hepatic veins are patent. Pancreas is not well visualized. Spleen is mildly enlarged, measuring 14.1 cm long axis dimension. Left kidney measures 13.3 cm in length. Right kidney measures 13.6 cm length. Both kidneys demonstrate normal echogenicity. There is no hydronephrosis. The right kidney demonstrates multiple cysts. The left kidney demonstrates an interpolar region contour deformity demonstrated on previous noncontrast CT. Bladder is empty, contains a Rivero catheter.. Abdominal aorta is partially obscured by bowel gas, visualized portions are non-aneurysmal . Impression: 10.7 cm unilocular cystic structure in the left upper quadrant retroperitoneal, corresponding to findings reported on recent CT scan. Most likely represents a pancreatic pseudocyst. Cystic neoplasm of pancreatic or other origin also possible. Correlate with clinical history and findings Right cholecystectomy, also previously reported. Mildly prominent extra hepatic bile ducts, likely related to age and postcholecystectomy state. Correlate with liver function tests Contour deformity of the left kidney without definite discrete mass. Recommend further evaluation with contrast CT or MRI if not contraindicated Mild splenomegaly. Borderline hepatomegaly Suboptimal visualization of the pancreas Empty bladder with a Rivero catheter Bilateral renal cysts Note incomplete visualization of the abdominal aorta
--- NOTE | 2019-06-16 18:00 | NUR ---
NURSE NOTES: Patient repositioned at this time. Patient given ice chips and placed back on BiPAP at 15/5 at 50% FiO2. NO distress noted. Vital signs stable. Will continue to monitor.
--- NOTE | 2019-06-16 19:30 | NUR ---
NURSE NOTES: Received report from GANGA Moore. Pt is resting on the bed and family stays at bedside. Pt is awake and forgetful but able to needs to known by verbally. On BiPAP 15/5 FiO2 50% ans SaO2 98% noted. Denied pain at this time. IV site intact and no sign of infiltration noted. Dressing is intact on Lt, upper arm PICC line area. On running with D5Lr@ 125cc/hr. On Rivero cath and drainage with dark mary color. BP is stable. no fever. Placed fall precaution. Will continue to care plan.
--- NOTE | 2019-06-16 19:30 | NUR ---
HAND-OFF: Report given to GANGA Fritz. Patient VS stable. Endorsed to follow up.
[2019-06-16] MEDS: Dyna-Hex 2% Top Sol 2oz TOPIC SCH (19:53)
[2019-06-16] MEDS: Heparin 5000 units/ml inj SUBQ SCH (20:41)
--- NOTE | 2019-06-16 21:15 | Consultation ---
DATE OF CONSULTATION: 06/16/2019 INFECTIOUS DISEASES CONSULTATION CONSULTING PHYSICIAN: Pranay Waller M.D. ATTENDING PHYSICIAN: Zaira Farooq M.D. REFERRING PHYSICIAN: Harinder Ochoa M.D. REASON FOR CONSULTATION: Sepsis, gram-negative bacteremia, urinary tract infection, pneumonia, possible biliary infection such as cholecystitis, cholangitis, leukocytosis. CHIEF COMPLAINT: The patient's chief complaint coming into the hospital is nausea, vomiting, diarrhea, and also hypotension. HISTORY OF PRESENT ILLNESS: The patient is a 73-year-old male, who currently is in the intensive care unit at [facility] on BiPAP, but not on pressors. He did come in with hypotension to [facility]. The patient came in with nausea, vomiting, abdominal pain, diarrhea. CT scan of the abdomen and pelvis was done. Report was noted. The patient has gram-negative bacteremia. The patient has shortness of breath on BiPAP. The patient has pneumonia, likely urinary tract infection. The patient is septic with SIRS criteria and elevated white count. Infectious Diseases consultation requested for antibiotic management. The patient will be placed on antibiotics meropenem, Levaquin for gram-negative bacteremia and sepsis. The ultrasound has also been ordered. The patient also has pancreatitis. Case was discussed with RN. Orders were noted and reviewed. REVIEW OF SYSTEMS: The patient has shortness of breath. He is on BiPAP. He is currently not on pressors. He had no fevers. No mention of chills or night sweats.CARDIAC: No chest pain. GASTROINTESTINAL: He came in with nausea, vomiting, abdominal pain, diarrhea. GENITOURINARY: He has a Rivero. PULMONARY: He is short of breath, on BiPAP. No secretions noted. SKIN: No rash noted. NEUROLOGIC: No seizures. He is responsive, more responsive now than he was. He has generalized fatigue. No focal weakness. No night sweats, weight loss, or chills mentioned. No mention of headache or neck stiffness. Review of systems otherwise limited. PAST MEDICAL HISTORY: The patient's past medical history includes history of following: The patient has a past medical history of diabetes mellitus, he has a history of hypertension, possible CVA. He is on Plavix. Other past medical history includes he has renal failure currently. He has acute kidney injury. He also has pancreatitis. ALLERGIES: No known drug allergies. No antibiotic allergies. SOCIAL HISTORY: Negative for smoking, alcohol, drug use. FAMILY HISTORY: Noncontributory. Negative for tuberculosis or cancer. MEDICATIONS: Upon reviewing the MAR, the patient is on the following medications: He is on Levaquin. He is on meropenem. I stopped the cefepime. He is on chlorhexidine, heparin, lidocaine, docusate, aspirin, pantoprazole, insulin, hydromorphone, Zofran, acetaminophen, bisacodyl, magnesium hydroxide. As needed medications, outside medications noted and reconciliated. PHYSICAL EXAMINATION: VITAL SIGNS: Temperature is 98.5, pulse rate as high as 105 today, respiratory rate 26 today, blood pressure 97/53, saturation 97% on FiO2 50% on BiPAP. He did have systolic blood pressure in the 80s early on admission. GENERAL: Open eyes, more responsive. HEAD AND NECK: Oral exam, no thrush. Eye exam, no icterus. Normocephalic. He is on BiPAP, sob. Neck is supple. HEART: Regular. No gallop or murmur. Tachycardia. ABDOMEN: Soft. Positive bowel sounds. Some pain. No rebound. LUNGS: Bilateral rhonchi, rales, and crackles. SKIN: No rash. MUSCULOSKELETAL: No effusion. Legs are without cellulitis. PERIPHERAL VASCULAR: No cyanosis. GENITOURINARY: He has a Rivero. Urine is cloudy. LINE SITES: Without phlebitis. NEUROLOGIC: Generalized responsive, more alert now. LABORATORY AND DIAGNOSTIC DATA: Laboratory data as follows. White count 18.8, hemoglobin 11.4. Creatinine 2.9. LFTs were noted. Lactic acid was as high as 3.7. Cultures, blood cultures gram-negative organisms, gram-negative rods. Urine culture pending. UA had 5 to 10 white blood cells[address] Abdominal CT scan showed the following cystic mass in tail of pancreas, pancreatic pseudocyst, distended proximal small bowel, possible enteritis, bilateral pulmonary and parenchymal infiltrates, bilateral perinephric fat stranding. Chest x-ray showed extensive parenchymal changes. ASSESSMENT/PLAN: 1. The patient has gram-negative bacteremia. Source could be either urinary tract such as urinary tract infection with gram-negative bacteremia or possibility of biliary sepsis with history of pancreatitis such as cholangitis or cholecystitis. The patient also pneumonia, risk for both community-acquired pneumonia and if he has history of CVA, aspiration pneumonia. According to the nursing staff, the patient comes from home. At this time, because of the gram-negative bacteremia, we will continue meropenem and Levaquin, this will cover gram-negative bacteremia including ESBL and also Levaquin will cover pneumonia. Both will cover urinary tract infection also. Continue meropenem, Levaquin for gram-negative bacteremia, sepsis, leukocytosis, and also possible urinary tract infection and biliary sepsis. The patient also has pancreatitis, questionable gallstone pancreatitis, and also possible pseudocyst. The patient had abdominal ultrasound. Labs were ordered. Follow up on Legionella mycoplasma sputum culture, urine culture, laboratories, and chest x-ray. Continue meropenem and Levaquin for now. 2. Shock. The patient came in with shock secondary to sepsis, improved. Currently, he is not on pressors. 3. Shortness of breath, hypoxia, on BiPAP. 4. Pulmonary followup. 5. Acute renal failure. 6. Anemia. 7. Diabetes. 8. Hypertension. 9. Blood sugar and blood pressure treatment per primary care team. 10. Possible CVA history. 11. No known drug allergies. 12. Social history is negative. 13. Family history is noncontributory. 14. MAR was noted. 15. Case discussed with RN. 16. Continue treatment per primary consultants. 17. ICU care. 18. Skin care protocol. 19. Orders were noted and entered. 20. GI followup. Pranay Waller M.D. DR: Priyanka JOB#: [id number] CC: GRADY
--- NOTE | 2019-06-16 22:00 | NUR ---
NURSE NOTES: Pt is sleeping on the bed and tolerated well with current BIPAP setting. BP stable. Repositioned. Provided good sleep environment. Will continue to monitor any change of condition.
[2019-06-17] VITALS (24 sets, daily range): BP systolic 95–146; BP diastolic 48–74
--- NOTE | 2019-06-17 | NUR ---
NURSE NOTES: Pt is sleeping on the bed and no sign of acute distress noted. Repositioned. Dr. Whitman visited and assessed Pt. New order received. urine out put getting increased. Dr. Whitman aware. Placed fall precaution. Will continue to care plan.
[2019-06-17] MEDS: Dextrose 5%/Lactated Ringer's 1,000 ML IV SCH ×3 (01:38→20:13)
--- NOTE | 2019-06-17 02:10 | NUR ---
HAND-OFF: Report given to GANGA Fajardo. Pt is resting on the bed and slight agitated. Tolerated well with current BIPAP setting.
--- NOTE | 2019-06-17 04:00 | NUR ---
NURSE NOTES: Tolerating BIPAP, 02 down to 45%, 02 sat> 95
--- NOTE | 2019-06-17 05:00 | NUR ---
NURSE NOTES: Complete bed bath with bed changed done.
[2019-06-17] MEDS: NovoLOG Insulin Flexpen SUBQ SCH ×4 (06:00→18:00)
[2019-06-17 06:08] LABS: HEMATOCRIT 31.8 % (42.0-52.0); HEMOGLOBIN 10.5 G/DL (14.2-18.0); MEAN CORPUSCULAR VOLUME 86 FL (80-99); PLATELET COUNT 95 K/UL (150-450); RED CELL DISTRIBUTION WIDTH 14.7 % (11.6-14.8)
[2019-06-17 06:19] LABS: WHITE BLOOD COUNT 25.1 K/UL (4.8-10.8)
[2019-06-17 06:22] LABS: ALANINE AMINOTRANSFERASE 94 U/L (12-78); ALBUMIN 1.9 G/DL (3.4-5.0); ALKALINE PHOSPHATASE 77 U/L (46-116); ANION GAP 17 mmol/L (5-15); ASPARTATE AMINO TRANSFERASE 175 U/L (15-37); BILIRUBIN,DIRECT 0.2 MG/DL (0.0-0.3); BILIRUBIN,TOTAL 0.5 MG/DL (0.2-1.0); BLOOD UREA NITROGEN 51 mg/dL (7-18); CALCIUM 7.7 MG/DL (8.5-10.1); CARBON DIOXIDE 17 MMOL/L (21-32); CHLORIDE 110 MMOL/L (98-107); CREATININE 3.2 MG/DL (0.55-1.30); POTASSIUM 4.6 MMOL/L (3.5-5.1); SODIUM 143 MMOL/L (136-145)
--- NOTE | 2019-06-17 07:30 | NUR ---
HAND-OFF: Report given to Leah NOGUEIRA.
--- NOTE | 2019-06-17 08:00 | NUR ---
NURSE NOTES: Received change of shift report from Megan SCHULER. Pt is awake, alert, oriented x4, currently on Venturi mask at 50% FIO2 at 100% O2Sat. NSR on quality assurance monitor body. Pt has left UA PICC with IV fluid infusing D5 LR at 100ml/hour. Pt also has left AC#20G saline locked, patent/intact. Pt is currently NPO, except for ice chips/meds. No reports of nausea/vomiting. Abdomen is large, round, soft, nontender to touch with active bowel sounds in all quadrants. Rivero catheter is present, draining dark yellow urine with sediments. Skin is intact. Bed is locked with three side rails up, in lowest position, and call light within easy reach. Will continue to monitor pt and follow plan of care.
[2019-06-17] MEDS: Phenylephrine 50 MG in D5W 245 ML IV SCH (08:30)
--- NOTE | 2019-06-17 08:33 | Pulmonolgy Critical Care Note ---
Critical Care - Asmt/Plan Problems: (1) Sepsis (2) Hypoxia (3) Renal failure (4) Acute pancreatitis (5) Acute kidney injury superimposed on CKD (6) Left upper quadrant abdominal mass (7) Elevated troponin (8) Smoker Assessment/Plan: D/C BiPAP Titrate FiO2 HHN's Monitor volumes and renal function, continue mIVF NPO, consider advancing diet, defer to GI ABx (RUSTAM/levo) per ID, F/U Cx's F/U cards recs, trops uptrending, consider IVUH, will d/w cards, ? ischemia eval once acute issues resolve F/U GI recs, F/U CA-19-9 In the future should have a CT chest (screening) when acute issues resolve DVT Px Hep SQ FC CCT 35 Critical Care - Objective Last 24 Hour Vital Signs Date Time Temp Pulse Resp B/P (MAP) Pulse Ox O2 Delivery O2 Flow Rate FiO2 06/17/19 07:14 97 Bi-Pap 06/17/19 06:00 95 24 118/62 (80) 99 06/17/19 05:01 90 28 96 45 06/17/19 05:00 90 25 107/57 (74) 98 06/17/19 04:00 Bi-pap 06/17/19 04:00 98.0 92 26 102/54 (70) 97 06/17/19 04:00 50 06/17/19 04:00 92 06/17/19 03:00 89 25 107/55 (72) 97 06/17/19 02:33 92 32 97 45 06/17/19 02:08 90 24 107/48 (67) 96 06/17/19 01:00 93 22 108/56 (73) 98 06/17/19 00:46 89 28 96 45 06/17/19 00:00 50 06/17/19 00:00 98.2 89 21 95/50 (65) 97 06/17/19 00:00 97 06/17/19 00:00 Bi-pap 06/16/19 23:00 98 24 111/61 (78) 96 06/16/19 22:37 91 24 96 45 06/16/19 22:00 96 12 112/60 (77) 95 06/16/19 21:00 95 14 102/60 (74) 95 06/16/19 20:55 94 28 95 45 06/16/19 20:00 Bi-pap 06/16/19 20:00 50 06/16/19 20:00 98.3 94 17 104/79 (87) 95 06/16/19 20:00 94 06/16/19 19:08 92 24 96 45 06/16/19 19:08 96 Bi-Pap 45 06/16/19 19:07 94 24 96 Bi-Pap 45 06/16/19 19:00 95 16 101/56 (71) 97 06/16/19 18:00 98 22 108/60 (76) 96 06/16/19 17:00 104 28 125/63 (83) 06/16/19 16:40 100 29 97 50 06/16/19 16:00 50 06/16/19 16:00 102 06/16/19 16:00 98.5 100 23 97/53 (68) 97 06/16/19 16:00 Bi-pap 06/16/19 15:00 101 24 91/44 (60) 06/16/19 14:51 100 23 94 50 06/16/19 14:00 103 22 91/47 (62) 06/16/19 13:00 105 26 95/50 (65) 94 06/16/19 12:00 105 06/16/19 12:00 98.7 107 31 99/54 (69) 97 06/16/19 12:00 Bi-pap 06/16/19 12:00 50 06/16/19 11:00 111 30 104/56 (72) 97 06/16/19 10:58 108 31 97 50 06/16/19 10:00 113 31 95/55 (68) 98 06/16/19 09:00 115 34 120/56 (77) 96 06/16/19 08:55 117 36 94 50 06/16/19 08:30 114 129/53 Status: awake Condition: improving HEENT: atraumatic, normocephalic Lungs: clear Heart: HR/BP stable Abdomen: soft, non-tender, active bowel sounds Extremities: no C/C/E Decubiti: location Micro: Microbiology Date/Time Source Procedure Growth Status 06/15/19 20:05 Blood Blood Culture - Preliminary Gram Negative Bacillus 1 Resulted 06/15/19 19:50 Blood Blood Culture - Preliminary Gram Negative Bacillus 1 Resulted 06/15/19 21:48 Urine,Clean Catch Urine Culture - Preliminary NO GROWTH AFTER 24 HOURS Resulted Accucheck: 150 Blood Sugars: BS controlled Critical Care - Subjective ROS Limited/Unobtainable: Yes ICU Day: 3 Intubation Day: Off BiPAP on VM Interval Events: Awake and alert off BiPAP AFVSS but WCt inc Off pressors Condition: improving IV Access: PICC EKG Rhythm: Sinus Rhythm FI02: 45 Vent Support Mode: BiLevel Sputum Amount: None Secretions: None Fluids: D5LR@100 Drips: N/A I&O: Intake and Output 06/16/19 06/17/19 19:00 07:00 Intake Total 1580 ml 986 ml Output Total 55 ml 245 ml Balance 1525 ml 741 ml IV Total 1580 ml 986 ml Output Urine Total 55 ml 245 ml # Voids 1 Subjective: No F/C/CP/SOB + cough Labs: Laboratory Tests Test 06/16/19 08:35 06/16/19 10:05 06/16/19 12:00 06/16/19 14:01 Lactic Acid Level 3.20 mmol/L (0.66-2.22) H 2.00 mmol/L (0.4-2.0) Arterial Blood pH 7.363 (7.350-7.450) Arterial Blood Partial Pressure CO2 26.9 mmHg (35.0-45.0) L Arterial Blood Partial Pressure O2 80.1 mmHg (75.0-100.0) Arterial Blood HCO3 15.0 mmol/L (22.0-26.0) *L Arterial Blood Oxygen Saturation 95.3 % (95-100) Arterial Blood Base Excess -9.1 (-2-2) *L Saul Test Positive Sodium Level 145 MMOL/L (136-145) Potassium Level 3.6 MMOL/L (3.5-5.1) Chloride Level 111 MMOL/L (98-107) H Carbon Dioxide Level 19 MMOL/L (21-32) L Anion Gap 15 mmol/L (5-15) Blood Urea Nitrogen 44 mg/dL (7-18) H Creatinine 2.9 MG/DL (0.55-1.30) H Estimat Glomerular Filtration Rate 21.4 mL/min (>60) Glucose Level 103 MG/DL (74-106) Calcium Level 7.0 MG/DL (8.5-10.1) L Mycoplasma pneumoniae IgG Antibody Pending Mycoplasma pneumoniae IgM Ab Titer Pending Urine Random Total Protein 349 MG/DL (< 11.9) H Urine Random Sodium 21 mmol/L (20-110) Urine Creatinine 211.3 MG/DL (30.0-125.0) H Urine Legionella Antigen Pending Test 06/16/19 15:01 06/17/19 05:10 Arterial Blood pH 7.394 (7.350-7.450) Arterial Blood Partial Pressure CO2 31.1 mmHg (35.0-45.0) L Arterial Blood Partial Pressure O2 76.8 mmHg (75.0-100.0) Arterial Blood HCO3 16.7 mmol/L (22.0-26.0) *L Arterial Blood Oxygen Saturation 94.0 % (95-100) L Arterial Blood Base Excess -7.9 (-2-2) L Saul Test Positive White Blood Count 25.1 K/UL (4.8-10.8) *H Red Blood Count 3.70 M/UL (4.70-6.10) L Hemoglobin 10.5 G/DL (14.2-18.0) L Hematocrit 31.8 % (42.0-52.0) L Mean Corpuscular Volume 86 FL (80-99) Mean Corpuscular Hemoglobin 28.4 PG (27.0-31.0) Mean Corpuscular Hemoglobin Concent 33.0 G/DL (32.0-36.0) Red Cell Distribution Width 14.7 % (11.6-14.8) Platelet Count 95 K/UL (150-450) L Mean Platelet Volume 12.1 FL (6.5-10.1) H Neutrophils (%) (Auto) % (45.0-75.0) Lymphocytes (%) (Auto) % (20.0-45.0) Monocytes (%) (Auto) % (1.0-10.0) Eosinophils (%) (Auto) % (0.0-3.0) Basophils (%) (Auto) % (0.0-2.0) Neutrophils % (Manual) Pending Lymphocytes % (Manual) Pending Platelet Estimate Pending Platelet Morphology Pending Sodium Level 143 MMOL/L (136-145) Potassium Level 4.6 MMOL/L (3.5-5.1) Chloride Level 110 MMOL/L (98-107) H Carbon Dioxide Level 17 MMOL/L (21-32) L Anion Gap 17 mmol/L (5-15) H Blood Urea Nitrogen 51 mg/dL (7-18) H Creatinine 3.2 MG/DL (0.55-1.30) H Estimat Glomerular Filtration Rate 19.1 mL/min (>60) Glucose Level 160 MG/DL (74-106) H Calcium Level 7.7 MG/DL (8.5-10.1) L Ionized Calcium (Measured) 0.94 mmol/L (1.10-1.35) L Total Bilirubin 0.5 MG/DL (0.2-1.0) Direct Bilirubin 0.2 MG/DL (0.0-0.3) Aspartate Amino Transf (AST/SGOT) 175 U/L (15-37) H Alanine Aminotransferase (ALT/SGPT) 94 U/L (12-78) H Alkaline Phosphatase 77 U/L (46-116) Troponin I 2.309 ng/mL (0.000-0.056) Total Protein 5.7 G/DL (6.4-8.2) L Albumin 1.9 G/DL (3.4-5.0) L Lipase 105 U/L (73-393) Homero Moran MD Jun 17, 2019 08:33
[2019-06-17] MEDS ORDERED: NS 275ml ONE (08:52)
--- NOTE | 2019-06-17 08:59 | Nephrology Progress Note ---
Assessment/Plan Plan #acute kidney injury - on baseline CKD- Fena 0.4% suggestive of pre-renal aztemia- however UA with sediments and RBC concerning for developing ATN- patient with baseline diabetic nephropathy #sepsis #acute pancreatitis # Hypokalemia, hypopmagnesemia #lactic acidosis #HTN #DM - continue to hydration with D5 LR at 100cc - replete calcium - monitor phos - check vitamin D and PTH - maintain contreras - monitor UOP closely - monitor bicarb level - trend lactate - improved - hold lisinopril - hold mertformin - hold amlodipine - ISS - continue with abx - follow cx Subjective ROS Limited/Unobtainable: Yes Subjective Off bipap BP stable lactate 2.0 mentating well Cr continues to uptrend remains NPO calcium low phos elevated Objective Objective Last 24 Hour Vital Signs Date Time Temp Pulse Resp B/P (MAP) Pulse Ox O2 Delivery O2 Flow Rate FiO2 06/17/19 07:14 97 Bi-Pap 06/17/19 06:00 95 24 118/62 (80) 99 06/17/19 05:01 90 28 96 45 06/17/19 05:00 90 25 107/57 (74) 98 06/17/19 04:00 Bi-pap 06/17/19 04:00 98.0 92 26 102/54 (70) 97 06/17/19 04:00 50 06/17/19 04:00 92 06/17/19 03:00 89 25 107/55 (72) 97 06/17/19 02:33 92 32 97 45 06/17/19 02:08 90 24 107/48 (67) 96 06/17/19 01:00 93 22 108/56 (73) 98 06/17/19 00:46 89 28 96 45 06/17/19 00:00 50 06/17/19 00:00 98.2 89 21 95/50 (65) 97 06/17/19 00:00 97 06/17/19 00:00 Bi-pap 06/16/19 23:00 98 24 111/61 (78) 96 06/16/19 22:37 91 24 96 45 06/16/19 22:00 96 12 112/60 (77) 95 06/16/19 21:00 95 14 102/60 (74) 95 06/16/19 20:55 94 28 95 45 06/16/19 20:00 Bi-pap 06/16/19 20:00 50 06/16/19 20:00 98.3 94 17 104/79 (87) 95 06/16/19 20:00 94 06/16/19 19:08 92 24 96 45 06/16/19 19:08 96 Bi-Pap 45 06/16/19 19:07 94 24 96 Bi-Pap 45 06/16/19 19:00 95 16 101/56 (71) 97 06/16/19 18:00 98 22 108/60 (76) 96 06/16/19 17:00 104 28 125/63 (83) 06/16/19 16:40 100 29 97 50 06/16/19 16:00 50 06/16/19 16:00 102 06/16/19 16:00 98.5 100 23 97/53 (68) 97 06/16/19 16:00 Bi-pap 06/16/19 15:00 101 24 91/44 (60) 06/16/19 14:51 100 23 94 50 06/16/19 14:00 103 22 91/47 (62) 06/16/19 13:00 105 26 95/50 (65) 94 06/16/19 12:00 105 06/16/19 12:00 98.7 107 31 99/54 (69) 97 06/16/19 12:00 Bi-pap 06/16/19 12:00 50 06/16/19 11:00 111 30 104/56 (72) 97 06/16/19 10:58 108 31 97 50 06/16/19 10:00 113 31 95/55 (68) 98 06/16/19 09:00 115 34 120/56 (77) 96 Intake and Output 06/16/19 06/17/19 19:00 07:00 Intake Total 1580 ml 986 ml Output Total 55 ml 245 ml Balance 1525 ml 741 ml IV Total 1580 ml 986 ml Output Urine Total 55 ml 245 ml # Voids 1 Laboratory Tests 06/16/19 10:05: Arterial Blood pH 7.363, Arterial Blood Partial Pressure CO2 26.9L, Arterial Blood Partial Pressure O2 80.1, Arterial Blood HCO3 15.0*L, Arterial Blood Oxygen Saturation 95.3, Arterial Blood Base Excess -9.1*L, Saul Test Positive 06/16/19 12:00: Sodium Level 145, Potassium Level 3.6, Chloride Level 111H, Carbon Dioxide Level 19L, Anion Gap 15, Blood Urea Nitrogen 44H, Creatinine 2.9H, Estimat Glomerular Filtration Rate 21.4, Glucose Level 103, Lactic Acid Level 2.00, Calcium Level 7.0L, Mycoplasma pneumoniae IgG Antibody [Pending], Mycoplasma pneumoniae IgM Ab Titer [Pending] 06/16/19 14:01: Urine Random Total Protein 349H, Urine Random Sodium 21, Urine Creatinine 211.3H , Urine Legionella Antigen [Pending] 06/16/19 15:01: Arterial Blood pH 7.394, Arterial Blood Partial Pressure CO2 31.1L, Arterial Blood Partial Pressure O2 76.8, Arterial Blood HCO3 16.7*L, Arterial Blood Oxygen Saturation 94.0L, Arterial Blood Base Excess -7.9L, Saul Test Positive 06/17/19 05:10: White Blood Count 25.1*H, Red Blood Count 3.70L, Hemoglobin 10.5L, Hematocrit 31.8L, Mean Corpuscular Volume 86, Mean Corpuscular Hemoglobin 28.4, Mean Corpuscular Hemoglobin Concent 33.0, Red Cell Distribution Width 14.7, Platelet Count 95L, Mean Platelet Volume 12.1H, Neutrophils (%) (Auto) , Lymphocytes (%) (Auto) , Monocytes (%) (Auto) , Eosinophils (%) (Auto) , Basophils (%) (Auto) , Neutrophils % (Manual) [Pending], Lymphocytes % (Manual) [Pending], Platelet Estimate [Pending], Platelet Morphology [Pending], Sodium Level 143, Potassium Level 4.6, Chloride Level 110H, Carbon Dioxide Level 17L, Anion Gap 17H, Blood Urea Nitrogen 51H, Creatinine 3.2H, Estimat Glomerular Filtration Rate 19.1, Glucose Level 160H, Calcium Level 7.7L, Ionized Calcium (Measured) 0.94L, Total Bilirubin 0.5, Direct Bilirubin 0.2, Aspartate Amino Transf (AST/SGOT) 175H, Alanine Aminotransferase (ALT/SGPT) 94H, Alkaline Phosphatase 77, Troponin I 2.309H, Total Protein 5.7L, Albumin 1.9L, Lipase 105 Height (Feet): 5 Height (Inches): 7.00 Weight (Pounds): 235 Objective General Appearance: Alert - no distress Lines, tubes and drains: peripheral HEENT: normocephalic, atraumatic Neck: non-tender, normal alignment Respiratory/Chest: chest wall non-tender, lungs clear, normal breath sounds Cardiovascular/Chest: normal rate, regular rhythm Abdomen: normal bowel sounds, non tender, soft Extremities: non-tender, normal inspection Skin Exam: normal pigmentation, no diaphoresis Gerson Salgado M.D. Jun 17, 2019 08:58
[2019-06-17] MEDS: Docusate 100mg cap ORAL SCH ×2 (09:00→21:19)
[2019-06-17] MEDS: Heparin 5000 units/ml inj SUBQ SCH ×2 (09:00→21:00)
--- NOTE | 2019-06-17 09:00 | NUR ---
NURSE NOTES: Pt was seen by Dr Graf covering for Dr Farooq. Per MD, pt is to remain in ICU for now.
--- NOTE | 2019-06-17 09:20 | NUR ---
RADIOLOGY DEPT., CHEST X-RAY DONE.-.P.DYE
[2019-06-17] MEDS: Pantoprazole Inj IVP SCH (09:57)
[2019-06-17] MEDS: Aspirin Baby 81mg NG SCH (09:57)
[2019-06-17] MEDS ORDERED: Calcium Gluconate 10% 1 GM in NS 110 ML IVPB SCH (10:00)
--- NOTE | 2019-06-17 10:00 | NUR ---
NURSE NOTES: AM meds were administered. Pt had BM x1, pinkish/brown mucous tinged liquid stool. Pt was cleaned, gown/bed linens were changed, and pt was repositioned. Oral care was done. Pt was seen by Dr Moran. Per MD order, Bipap was dc'd. ABGs were drawn, chest xray was done and sputum culture was collected and sent to lab.
[2019-06-17] MEDS ORDERED: Dextrose 5%/Lactated Ringer's 1,000 ML IV SCH (11:30)
--- NOTE | 2019-06-17 12:00 | NUR ---
NURSE NOTES: Pt is resting with stable VS. Denies any pain or discomfort at this time. Pt was seen by Dr Akbar. Order was received for OB/CDiff/stool cx collect. Pt is clean now with no BM. VS remain stable.
--- NOTE | 2019-06-17 12:19 | General Progress Note ---
Assessment/Plan Problem List: (1) Acute kidney injury superimposed on CKD ICD Codes: N17.9 - Acute kidney failure, unspecified; N18.9 - Chronic kidney disease, unspecified SNOMED: 87573999, [id number] (2) Sepsis ICD Codes: A41.9 - Sepsis, unspecified organism SNOMED: 21530755 Qualifiers: Qualified Codes: A41.9 - Sepsis, unspecified organism; R65.21 - Severe sepsis with septic shock; N17.9 - Acute kidney failure, unspecified (3) Elevated troponin ICD Codes: R79.89 - Other specified abnormal findings of blood chemistry SNOMED: 774695054, 244006264, [id number] Status: stable Assessment/Plan: diarrhea anemia esophagitis CM pancreatic pseudocyst ? start clears abx per id fu cardiology ad nephrology repeat labs in am ppi anemia work up stool studies Subjective ROS Limited/Unobtainable: Yes Allergies: Coded Allergies: No Known Allergies (Unverified , 06/02/19) Objective Last 24 Hour Vital Signs Date Time Temp Pulse Resp B/P (MAP) Pulse Ox O2 Delivery O2 Flow Rate FiO2 06/17/19 10:00 95 26 119/63 (81) 93 06/17/19 09:00 88 19 123/54 (77) 98 06/17/19 08:00 15.0 50 06/17/19 08:00 89 06/17/19 08:00 89 22 132/53 (79) 98 06/17/19 08:00 Bi-pap 06/17/19 07:14 97 Bi-Pap 06/17/19 07:00 98.0 92 21 124/74 (91) 98 06/17/19 06:00 95 24 118/62 (80) 99 06/17/19 05:01 90 28 96 45 06/17/19 05:00 90 25 107/57 (74) 98 06/17/19 04:00 Bi-pap 06/17/19 04:00 98.0 92 26 102/54 (70) 97 06/17/19 04:00 50 06/17/19 04:00 92 06/17/19 03:00 89 25 107/55 (72) 97 06/17/19 02:33 92 32 97 45 06/17/19 02:08 90 24 107/48 (67) 96 06/17/19 01:00 93 22 108/56 (73) 98 06/17/19 00:46 89 28 96 45 06/17/19 00:00 50 06/17/19 00:00 98.2 89 21 95/50 (65) 97 06/17/19 00:00 97 06/17/19 00:00 Bi-pap 06/16/19 23:00 98 24 111/61 (78) 96 06/16/19 22:37 91 24 96 45 06/16/19 22:00 96 12 112/60 (77) 95 06/16/19 21:00 95 14 102/60 (74) 95 06/16/19 20:55 94 28 95 45 06/16/19 20:00 Bi-pap 06/16/19 20:00 50 06/16/19 20:00 98.3 94 17 104/79 (87) 95 06/16/19 20:00 94 06/16/19 19:08 92 24 96 45 06/16/19 19:08 96 Bi-Pap 45 06/16/19 19:07 94 24 96 Bi-Pap 45 06/16/19 19:00 95 16 101/56 (71) 97 06/16/19 18:00 98 22 108/60 (76) 96 06/16/19 17:00 104 28 125/63 (83) 06/16/19 16:40 100 29 97 50 06/16/19 16:00 50 06/16/19 16:00 102 06/16/19 16:00 98.5 100 23 97/53 (68) 97 06/16/19 16:00 Bi-pap 06/16/19 15:00 101 24 91/44 (60) 06/16/19 14:51 100 23 94 50 06/16/19 14:00 103 22 91/47 (62) 06/16/19 13:00 105 26 95/50 (65) 94 Intake and Output 06/16/19 06/17/19 19:00 07:00 Intake Total 1580 ml 986 ml Output Total 55 ml 245 ml Balance 1525 ml 741 ml IV Total 1580 ml 986 ml Output Urine Total 55 ml 245 ml # Voids 1 Laboratory Tests 06/16/19 14:01: Urine Random Total Protein 349H, Urine Random Sodium 21, Urine Creatinine 211.3H , Urine Legionella Antigen [Pending] 06/16/19 15:01: Arterial Blood pH 7.394, Arterial Blood Partial Pressure CO2 31.1L, Arterial Blood Partial Pressure O2 76.8, Arterial Blood HCO3 16.7*L, Arterial Blood Oxygen Saturation 94.0L, Arterial Blood Base Excess -7.9L, Saul Test Positive 06/17/19 05:10: White Blood Count 25.1*H, Red Blood Count 3.70L, Hemoglobin 10.5L, Hematocrit 31.8L, Mean Corpuscular Volume 86, Mean Corpuscular Hemoglobin 28.4, Mean Corpuscular Hemoglobin Concent 33.0, Red Cell Distribution Width 14.7, Platelet Count 95L, Mean Platelet Volume 12.1H, Neutrophils (%) (Auto) , Lymphocytes (%) (Auto) , Monocytes (%) (Auto) , Eosinophils (%) (Auto) , Basophils (%) (Auto) , Differential Total Cells Counted 100, Neutrophils % (Manual) 89H, Lymphocytes % (Manual) 1L, Monocytes % (Manual) 2, Eosinophils % (Manual) 0, Basophils % ( Manual) 0, Band Neutrophils 8, Platelet Estimate DecreasedL, Platelet Morphology Normal, Hypochromasia 1+, Anisocytosis 1+, Sodium Level 143, Potassium Level 4.6, Chloride Level 110H, Carbon Dioxide Level 17L, Anion Gap 17H, Blood Urea Nitrogen 51H, Creatinine 3.2H, Estimat Glomerular Filtration Rate 19.1, Glucose Level 160H, Calcium Level 7.7L, Ionized Calcium (Measured) 0.94L, Total Bilirubin 0.5, Direct Bilirubin 0.2, Aspartate Amino Transf (AST/ SGOT) 175H, Alanine Aminotransferase (ALT/SGPT) 94H, Alkaline Phosphatase 77, Troponin I 2.309H, Total Protein 5.7L, Albumin 1.9L, Lipase 105 06/17/19 08:58: Arterial Blood pH 7.368, Arterial Blood Partial Pressure CO2 30.7L, Arterial Blood Partial Pressure O2 65.8L, Arterial Blood HCO3 17.3*L, Arterial Blood Oxygen Saturation 91.4L, Arterial Blood Base Excess -7.0L, Saul Test Positive Height (Feet): 5 Height (Inches): 7.00 Weight (Pounds): 235 General Appearance: no apparent distress EENT: normal ENT inspection Neck: supple Cardiovascular: tachycardia Respiratory/Chest: decreased breath sounds Abdomen: normal bowel sounds, non tender, soft Extremities: non-tender Peyman Akbar MD Jun 17, 2019 12:19
--- NOTE | 2019-06-17 12:53 | Diagnostic Imaging Report ---
Indication: Dyspnea Comparison: 06/15/2019 A single view chest radiograph was obtained. Findings: Pulmonary vascular interstitial prominence demonstrated with cardiomegaly. There is a left-sided PICC line with the tip projected over the SVC. Old right clavicle fracture noted. IMPRESSION: Mild CHF
--- NOTE | 2019-06-17 14:00 | NUR ---
NURSE NOTES: Family is now at bedside. Pt is asleep with stable VS. No signs/symptoms of any distress noted.
--- NOTE | 2019-06-17 16:30 | NUR ---
NURSE NOTES: Pt refused Accucheck. VS remain stable. Pt is afebrile. Pt was cleaned and repositioned, gown/bed linens were changed. Remains on Venturi mask, currently on 35% FIO2 at 98% O2Sat.
--- NOTE | 2019-06-17 16:48 | NUR ---
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 Pt was on bibap and sleep. SW met w/ pt's Sheryl Gonzalez [phone] at his bed side. Pt resides w/ his at [address] [place] [address]. Pt has one adult son: Ari Gonzalez [phone]. Pt was ambulatory w/ cane and independent w/ ADLs prior to admission. Sheryl confirms pt does not have POLST/AD/POA. Gabbie believes pt can make his own decision at this time but if he can't, she will be the decision maker for pt. Pt has currently full code. Sheryl does not share any concern/needs at this time. Signed: 06/17/19 at 1651 by ZION FRASER <Co-Signature Required>
--- NOTE | 2019-06-17 18:00 | NUR ---
NURSE NOTES: Pt is awake, alert, with stable VS and family at bedside. Pt consumed dinner meal. Denies any pain or discomfort at this time. Pt was assisted with repositioning.
--- NOTE | 2019-06-17 19:23 | NUR ---
HAND-OFF: Report given to Megan SCHULER. Endorsed plan of care. Family is now at bedside. VS remain stable.
--- NOTE | 2019-06-17 19:30 | NUR ---
NURSE NOTES: Received pt awake and alert AOx3, , on 35% venturi mask, 02 sat>92%, NSR on the monitor, Bp stable afebrile, No CP nor sob noted. family at bedside,updated with pts condition, verblized understanding.Pt with iVF D5LR at 100ml/hr infusing to MERRILL PICC line. site with drsg dry and intact. contreras to gravity with moderate amt of mary yellow urine. Monitor I and O. monitor lytes. will continue to monitor.
[2019-06-17] MEDS: Dyna-Hex 2% Top Sol 2oz TOPIC SCH (20:13)
[2019-06-17] MEDS: Ipratropium 0.02% Inh Soln 2.5ml UD HHN PRN (21:22)
[2019-06-18] VITALS (24 sets, daily range): BP systolic 100–138; BP diastolic 43–117
[2019-06-18] MEDS: NovoLOG Insulin Flexpen SUBQ SCH ×5 (00:27→23:37)
--- NOTE | 2019-06-18 01:10 | NUR ---
NURSE NOTES: Place pt on 12L= 50% venturi mask, due to pt desat.88-90%.
[2019-06-18] MEDS: Ipratropium 0.02% Inh Soln 2.5ml UD HHN PRN (02:20)
--- NOTE | 2019-06-18 04:00 | NUR ---
NURSE NOTES: Pt keep sliding up and down on bed. repositioned for comfort. now on 50% venturi mask -12Liters. 02 sat >95%
[2019-06-18 05:58] LABS: HEMATOCRIT 34.4 % (42.0-52.0); HEMOGLOBIN 11.5 G/DL (14.2-18.0); MEAN CORPUSCULAR VOLUME 86 FL (80-99); PLATELET COUNT 82 K/UL (150-450); RED BLOOD COUNT 3.99 M/UL (4.70-6.10); RED CELL DISTRIBUTION WIDTH 12.4 % (11.6-14.8); WHITE BLOOD COUNT 17.9 K/UL (4.8-10.8)
--- NOTE | 2019-06-18 06:00 | NUR ---
NURSE NOTES: No Resp distress noted. VSS
[2019-06-18 07:09] LABS: PHOSPHORUS 3.5 MG/DL (2.5-4.9)
[2019-06-18 07:13] LABS: ALANINE AMINOTRANSFERASE 90 U/L (12-78); ALBUMIN 1.6 G/DL (3.4-5.0); ALBUMIN/GLOBULIN RATIO 0.5 (1.0-2.7); ALKALINE PHOSPHATASE 451 U/L (46-116); ANION GAP 16 mmol/L (5-15); ASPARTATE AMINO TRANSFERASE 96 U/L (15-37); BILIRUBIN,DIRECT 0.3 MG/DL (0.0-0.3); BILIRUBIN,TOTAL 0.5 MG/DL (0.2-1.0); BLOOD UREA NITROGEN 66 mg/dL (7-18); CALCIUM 7.6 MG/DL (8.5-10.1); CARBON DIOXIDE 18 MMOL/L (21-32); CHLORIDE 112 MMOL/L (98-107); CREATININE 3.2 MG/DL (0.55-1.30); POTASSIUM 3.7 MMOL/L (3.5-5.1); SODIUM 145 MMOL/L (136-145)
--- NOTE | 2019-06-18 07:20 | General Progress Note ---
Assessment/Plan Status: stable Assessment/Plan: 73 year old man with HTN, IDDM, ? history of CVA who presented to [facility] [place] ED with nausea,vomiting. #septic shock, POA, possible biliary source -continue ICU care -IV hydration -cont Broad spectrum antibiotics -ID eval appreciated #acute hypoxic resp failure without hypercarbia -placed on BiPAP for hypoxemia, monitor ABGs -continue inhaled bronchodilators -Pulm/CCM following #acute kidney injury on CKD, possible ATN -IV hydration -Nephrology eval -monitor BMP -avoid nephrotoxic meds #acute pancreatitis -NPO -IV hydration -GI following #Hypokalemia, hypomagnesemia -replace and monitor labs #lactic acidosis #HTN -cont to hold BP meds #DM type 2 -ISS VTE PPx HSQ .I spent 75 minutes on this patient's case, and 37 mins was dedicated to critical care Critical Care Services performed include: Telemetry Review Hemodynamic measurement interpretation Laboratory data review and interpretation Radiology image review and interpretation Interpretation of ABG's Discussion of patient's care with ICU team, ICU Nursing staff and/or consulting services Subjective Date patient seen: Jun 17, 2019 Time patient seen: 07:11 ROS Limited/Unobtainable: Yes Constitutional: Denies: fever Cardiovascular: Denies: chest pain Respiratory: Denies: cough Gastrointestinal/Abdominal: Denies: abdominal pain Neurologic/Psychiatric: Denies: anxiety, depressed Allergies: Coded Allergies: No Known Allergies (Unverified , 06/02/19) Subjective Follow up for septic shock, ZARINA Condition improved today, denies any abdominal pain, chest pain, dyspnea Objective Last 24 Hour Vital Signs Date Time Temp Pulse Resp B/P (MAP) Pulse Ox O2 Delivery O2 Flow Rate FiO2 06/18/19 06:55 91 06/18/19 06:00 103 30 100/43 (62) 96 06/18/19 05:00 110 23 100/48 (65) 95 06/18/19 04:00 Venturi Mask 06/18/19 04:00 98.0 116 22 113/48 (69) 98 06/18/19 04:00 12.0 50 06/18/19 03:00 111 31 133/62 (85) 92 06/18/19 02:22 93 24 93 Venturi Mask 12.0 55 95 28 89 06/18/19 02:00 119 35 123/53 (76) 92 06/18/19 01:00 96 26 118/57 (77) 89 06/18/19 00:00 Venturi Mask 06/18/19 00:00 97.6 102 28 111/67 (82) 94 06/18/19 00:00 6.0 35 06/18/19 00:00 90 06/17/19 23:00 89 26 128/60 (82) 95 06/17/19 22:00 90 25 135/65 (88) 94 06/17/19 21:26 94 26 94 Venturi Mask 6.0 35 94 28 93 06/17/19 21:00 94 26 146/66 (92) 95 06/17/19 20:00 92 06/17/19 20:00 Venturi Mask 06/17/19 20:00 6.0 35 06/17/19 20:00 97.4 89 28 129/58 (81) 98 06/17/19 19:31 97 Nasal Cannula 2.0 28 06/17/19 19:00 93 25 120/64 (82) 98 06/17/19 18:00 92 23 131/65 (87) 91 06/17/19 17:00 97 22 125/57 (79) 90 06/17/19 16:00 98.0 90 25 125/57 (79) 91 06/17/19 16:00 6.0 35 06/17/19 16:00 95 06/17/19 16:00 Bi-pap 06/17/19 15:00 87 23 135/61 (85) 93 06/17/19 14:00 86 23 126/55 (78) 92 06/17/19 13:00 91 25 129/56 (80) 93 06/17/19 12:00 6.0 35 06/17/19 12:00 82 06/17/19 12:00 Bi-pap 06/17/19 12:00 98.2 90 22 123/59 (80) 94 06/17/19 11:00 95 23 125/61 (82) 98 06/17/19 10:00 95 26 119/63 (81) 93 06/17/19 09:00 88 19 123/54 (77) 98 06/17/19 08:00 15.0 50 06/17/19 08:00 89 2/25/20 08:00 89 22 132/53 (79) 98 06/17/19 08:00 Bi-pap Intake and Output 06/17/19 06/18/19 19:00 07:00 Intake Total 1890 ml 1430 ml Output Total 410 ml 590 ml Balance 1480 ml 840 ml Intake Oral 100 ml 230 ml IV Total 1790 ml 1200 ml Output Urine Total 410 ml 590 ml # Bowel Movements 1 Laboratory Tests 06/17/19 08:58: Arterial Blood pH 7.368, Arterial Blood Partial Pressure CO2 30.7L, Arterial Blood Partial Pressure O2 65.8L, Arterial Blood HCO3 17.3*L, Arterial Blood Oxygen Saturation 91.4L, Arterial Blood Base Excess -7.0L, Saul Test Positive 06/18/19 05:20: White Blood Count 17.9H, Red Blood Count 3.99L, Hemoglobin 11.5L, Hematocrit 34.4L, Mean Corpuscular Volume 86, Mean Corpuscular Hemoglobin 28.8, Mean Corpuscular Hemoglobin Concent 33.4, Red Cell Distribution Width 12.4, Platelet Count 82L, Mean Platelet Volume 9.6, Neutrophils (%) (Auto) , Lymphocytes (%) ( Auto) , Monocytes (%) (Auto) , Eosinophils (%) (Auto) , Basophils (%) (Auto) , Neutrophils % (Manual) [Pending], Lymphocytes % (Manual) [Pending], Platelet Estimate [Pending], Platelet Morphology [Pending], Sodium Level 145, Potassium Level 3.7, Chloride Level 112H, Carbon Dioxide Level 18L, Anion Gap 16H, Blood Urea Nitrogen 66H, Creatinine 3.2H, Estimat Glomerular Filtration Rate 19.1, Glucose Level 93, Calcium Level 7.6L, Calcium (Send out) [Pending], Ionized Calcium (Measured) 0.98L, Phosphorus Level 3.5, Magnesium Level 1.8, Iron Level [Pending], Unsaturated Iron Binding [Pending], Total Bilirubin 0.5, Direct Bilirubin 0.3, Aspartate Amino Transf (AST/SGOT) 96H, Alanine Aminotransferase ( ALT/SGPT) 90H, Alkaline Phosphatase 451H, Total Protein 5.0L, Albumin 1.6L, Globulin 3.4, Albumin/Globulin Ratio 0.5L, Amylase Level 114, Lipase 643H, Vitamin B12 Level [Pending], Vitamin D 25-Hydroxy [Pending], 25-Hydroxy Vitamin D2 [Pending], 25-Hydroxy Vitamin D3 [Pending], Folate [Pending], Parathyroid Hormone (Intact) [Pending], Hepatitis A IgM Antibody [Pending], Hepatitis B Surface Antigen [Pending], Hepatitis B Core IgM Antibody [Pending], Hepatitis C Antibody [Pending] Height (Feet): 5 Height (Inches): 7.00 Weight (Pounds): 237 General Appearance: alert, confused Neck: normal alignment, supple Cardiovascular: normal rate, regular rhythm Respiratory/Chest: lungs clear, normal breath sounds Abdomen: non tender, soft Harinder Ochoa MD Jun 18, 2019 07:20
--- NOTE | 2019-06-18 07:37 | NUR ---
HAND-OFF: Report given to Leah SCHULER for continuity of care..
--- NOTE | 2019-06-18 08:00 | NUR ---
NURSE NOTES: Received change of shift report from Megan SCHULER. Pt is awake, alert, oriented x4, on Venturi mask at 50% FIO2 at 100% O2Sat. NSR on phototypesetting equipment monitor. Pt has left UA PICC with IV fluid infusing D5 LR at 100ml/hour. Pt also has left AC#20G saline locked, patent/intact. Pt is consuming clear/liquid diet. No reports of nausea/vomiting. Abdomen is large, round, soft, nontender to touch with active bowel sounds in all quadrants. Rivero catheter is present, draining dark yellow urine with sediments. Skin is intact. Bed is locked with three side rails up, in lowest position, and call light within easy reach. Will continue to monitor pt and follow plan of care.
[2019-06-18] MEDS: Phenylephrine 50 MG in D5W 245 ML IV SCH (08:30)
[2019-06-18 08:31] LABS: % IRON SATURATION 43 % (15-50); IRON 43 ug/dL (50-175); TOTAL IRON BINDING CAPACITY 99 ug/dL (250-450)
[2019-06-18] MEDS: Docusate 100mg cap ORAL SCH ×2 (09:00→21:16)
[2019-06-18] MEDS: Heparin 5000 units/ml inj SUBQ SCH (09:00)
[2019-06-18] MEDS: Dextrose 5%/Lactated Ringer's 1,000 ML IV SCH ×2 (09:02→16:38)
[2019-06-18] MEDS: Pantoprazole Inj IVP SCH (09:02)
[2019-06-18] MEDS: Aspirin Baby 81mg NG SCH (09:03)
--- NOTE | 2019-06-18 09:14 | Nephrology Progress Note ---
Assessment/Plan Plan #acute kidney injury - on baseline CKD- Fena 0.4% suggestive of pre-renal aztemia- however UA with sediments and RBC concerning for developing ATN- patient with baseline diabetic nephropathy #sepsis #acute pancreatitis # Hypokalemia, hypopmagnesemia #lactic acidosis- improved #HTN- stable #DM- #NSTEMI- on lovenox - continue to hydration with D5 LR at 100cc - replete calcium - monitor phos - check vitamin D and PTH-> pending - GI eval - started on CLD - lovenox - cardiology eval - ischemia eval? - maintain contreras - monitor UOP closely - monitor bicarb level - trend lactate - improved - hold lisinopril - hold metformin - hold amlodipine - ISS - continue with abx- meropenem and levaquin Subjective Subjective Off bipap BP stable Cr stablizing mentating well trop elevated on lovenox started on CLD Objective Objective Last 24 Hour Vital Signs Date Time Temp Pulse Resp B/P (MAP) Pulse Ox O2 Delivery O2 Flow Rate FiO2 06/18/19 07:35 94 Venturi Mask 10.0 45 06/18/19 06:55 91 06/18/19 06:00 103 30 100/43 (62) 96 06/18/19 05:00 110 23 100/48 (65) 95 06/18/19 04:00 Venturi Mask 06/18/19 04:00 98.0 116 22 113/48 (69) 98 06/18/19 04:00 12.0 50 06/18/19 03:00 111 31 133/62 (85) 92 06/18/19 02:22 93 24 93 Venturi Mask 12.0 55 95 28 89 06/18/19 02:00 119 35 123/53 (76) 92 06/18/19 01:00 96 26 118/57 (77) 89 06/18/19 00:00 Venturi Mask 06/18/19 00:00 97.6 102 28 111/67 (82) 94 06/18/19 00:00 6.0 35 06/18/19 00:00 90 06/17/19 23:00 89 26 128/60 (82) 95 06/17/19 22:00 90 25 135/65 (88) 94 06/17/19 21:26 94 26 94 Venturi Mask 6.0 35 94 28 93 225/20 21:00 94 26 146/66 (92) 95 06/17/19 20:00 92 06/17/19 20:00 Venturi Mask 06/17/19 20:00 6.0 35 06/17/19 20:00 97.4 89 28 129/58 (81) 98 06/17/19 19:31 97 Nasal Cannula 2.0 28 06/17/19 19:00 93 25 120/64 (82) 98 06/17/19 18:00 92 23 131/65 (87) 91 06/17/19 17:00 97 22 125/57 (79) 90 06/17/19 16:00 98.0 90 25 125/57 (79) 91 06/17/19 16:00 6.0 35 06/17/19 16:00 95 06/17/19 16:00 Bi-pap 06/17/19 15:00 87 23 135/61 (85) 93 06/17/19 14:00 86 23 126/55 (78) 92 06/17/19 13:00 91 25 129/56 (80) 93 06/17/19 12:00 6.0 35 06/17/19 12:00 82 06/17/19 12:00 Bi-pap 06/17/19 12:00 98.2 90 22 123/59 (80) 94 06/17/19 11:00 95 23 125/61 (82) 98 06/17/19 10:00 95 26 119/63 (81) 93 Intake and Output 06/17/19 06/18/19 19:00 07:00 Intake Total 1890 ml 1430 ml Output Total 410 ml 590 ml Balance 1480 ml 840 ml Intake Oral 100 ml 230 ml IV Total 1790 ml 1200 ml Output Urine Total 410 ml 590 ml # Bowel Movements 1 Laboratory Tests 06/18/19 05:20: White Blood Count 17.9H, Red Blood Count 3.99L, Hemoglobin 11.5L, Hematocrit 34.4L, Mean Corpuscular Volume 86, Mean Corpuscular Hemoglobin 28.8, Mean Corpuscular Hemoglobin Concent 33.4, Red Cell Distribution Width 12.4, Platelet Count 82L, Mean Platelet Volume 9.6, Neutrophils (%) (Auto) , Lymphocytes (%) ( Auto) , Monocytes (%) (Auto) , Eosinophils (%) (Auto) , Basophils (%) (Auto) , Neutrophils % (Manual) [Pending], Lymphocytes % (Manual) [Pending], Platelet Estimate [Pending], Platelet Morphology [Pending], Sodium Level 145, Potassium Level 3.7, Chloride Level 112H, Carbon Dioxide Level 18L, Anion Gap 16H, Blood Urea Nitrogen 66H, Creatinine 3.2H, Estimat Glomerular Filtration Rate 19.1, Glucose Level 93, Calcium Level 7.6L, Calcium (Send out) [Pending], Ionized Calcium (Measured) 0.98L, Phosphorus Level 3.5, Magnesium Level 1.8, Iron Level 43L, Total Iron Binding Capacity 99L, Percent Iron Saturation 43, Unsaturated Iron Binding 56L, Total Bilirubin 0.5, Direct Bilirubin 0.3, Aspartate Amino Transf (AST/SGOT) 96H, Alanine Aminotransferase (ALT/SGPT) 90H, Alkaline Phosphatase 451H, Troponin I 1.947H, Total Protein 5.0L, Albumin 1.6L, Globulin 3.4, Albumin/Globulin Ratio 0.5L, Amylase Level 114, Lipase 643H, Vitamin B12 Level 1313H, Vitamin D 25-Hydroxy [Pending], 25-Hydroxy Vitamin D2 [Pending], 25 -Hydroxy Vitamin D3 [Pending], Folate 40.3, Parathyroid Hormone (Intact) [ Pending], Hepatitis A IgM Antibody [Pending], Hepatitis B Surface Antigen [ Pending], Hepatitis B Core IgM Antibody [Pending], Hepatitis C Antibody [Pending ] Height (Feet): 5 Height (Inches): 7.00 Weight (Pounds): 237 Objective General Appearance: Alert - no distress Lines, tubes and drains: peripheral HEENT: normocephalic, atraumatic Neck: non-tender, normal alignment Respiratory/Chest: chest wall non-tender, lungs clear, normal breath sounds Cardiovascular/Chest: normal rate, regular rhythm Abdomen: normal bowel sounds, non tender, soft Extremities: non-tender, normal inspection Skin Exam: normal pigmentation, no diaphoresis Gerson Salgado M.D. Jun 18, 2019 09:14
--- NOTE | 2019-06-18 10:00 | NUR ---
NURSE NOTES: Pt was seen by Dr Graf. Per MD pavon to transfer pt to [facility]. AM meds were administered. Pt was also seen by Dr Akbar. Pt is currently on clear liquid diet. No new orders were received at this time. Stool collect is still pending. No BM at this time.
--- NOTE | 2019-06-18 10:03 | General Progress Note ---
Assessment/Plan Status: stable Assessment/Plan: 73 year old man with HTN, IDDM, ? history of CVA who presented to [facility] [place] ED with nausea,vomiting. #septic shock, POA, possible biliary source -can transfer to [facility] today -cont IV hydration -cont Broad spectrum antibiotics -ID following #acute hypoxic resp failure without hypercarbia -off BiPAP, cont venti mask for oxygenation -continue inhaled bronchodilators -repeat CXR -Pulm/CCM following #NSTEMI, peak trop of 2, likely due to demand ischemia -start heparin drip, monitor closely for bleeding with thrombocytopenia -Cardiology following #acute kidney injury on CKD, possible ATN -IV hydration -Nephrology following -monitor BMP -avoid nephrotoxic meds #acute pancreatitis -NPO -IV hydration -GI following #Thrombocytopenia -monitor for evidence of bleeding -cont to monitor daily CBC -Hematology consulted #Hypokalemia, hypomagnesemia -replace and monitor labs #lactic acidosis #HTN -cont to hold BP meds #DM type 2 -ISS VTE PPx Heparin Full Code I spent 35 minutes on this patient's case, and >50% was dedicated to counseling and/or care coordination. Subjective Date patient seen: Jun 18, 2019 Time patient seen: 07:44 ROS Limited/Unobtainable: No Constitutional: Denies: chills, fever Cardiovascular: Denies: chest pain Respiratory: Denies: cough, orthopnea, shortness of breath Gastrointestinal/Abdominal: Denies: abdomen distended, abdominal pain Neurologic/Psychiatric: Denies: depressed Endocrine: Denies: excessive sweating, flushing Allergies: Coded Allergies: No Known Allergies (Unverified , 06/02/19) Subjective Follow up for septic shock, acute hypoxic resp failure, ZARINA, acute metabolic encephalopathy Overall condition improved, remains on venti mask for hypoxemia Objective Last 24 Hour Vital Signs Date Time Temp Pulse Resp B/P (MAP) Pulse Ox O2 Delivery O2 Flow Rate FiO2 06/18/19 07:35 94 Venturi Mask 10.0 45 06/18/19 06:55 91 06/18/19 06:00 103 30 100/43 (62) 96 06/18/19 05:00 110 23 100/48 (65) 95 06/18/19 04:00 Venturi Mask 06/18/19 04:00 98.0 116 22 113/48 (69) 98 06/18/19 04:00 12.0 50 06/18/19 03:00 111 31 133/62 (85) 92 06/18/19 02:22 93 24 93 Venturi Mask 12.0 55 95 28 89 06/18/19 02:00 119 35 123/53 (76) 92 06/18/19 01:00 96 26 118/57 (77) 89 06/18/19 00:00 Venturi Mask 06/18/19 00:00 97.6 102 28 111/67 (82) 94 06/18/19 00:00 6.0 35 06/18/19 00:00 90 06/17/19 23:00 89 26 128/60 (82) 95 06/17/19 22:00 90 25 135/65 (88) 94 06/17/19 21:26 94 26 94 Venturi Mask 6.0 35 94 28 93 06/17/19 21:00 94 26 146/66 (92) 95 06/17/19 20:00 92 06/17/19 20:00 Venturi Mask 06/17/19 20:00 6.0 35 06/17/19 20:00 97.4 89 28 129/58 (81) 98 06/17/19 19:31 97 Nasal Cannula 2.0 28 06/17/19 19:00 93 25 120/64 (82) 98 06/17/19 18:00 92 23 131/65 (87) 91 06/17/19 17:00 97 22 125/57 (79) 90 06/17/19 16:00 98.0 90 25 125/57 (79) 91 06/17/19 16:00 6.0 35 06/17/19 16:00 95 06/17/19 16:00 Bi-pap 06/17/19 15:00 87 23 135/61 (85) 93 06/17/19 14:00 86 23 126/55 (78) 92 06/17/19 13:00 91 25 129/56 (80) 93 06/17/19 12:00 6.0 35 06/17/19 12:00 82 06/17/19 12:00 Bi-pap 06/17/19 12:00 98.2 90 22 123/59 (80) 94 06/17/19 11:00 95 23 125/61 (82) 98 06/17/19 10:00 95 26 119/63 (81) 93 Intake and Output 06/17/19 06/18/19 19:00 07:00 Intake Total 1890 ml 1430 ml Output Total 410 ml 590 ml Balance 1480 ml 840 ml Intake Oral 100 ml 230 ml IV Total 1790 ml 1200 ml Output Urine Total 410 ml 590 ml # Bowel Movements 1 Laboratory Tests 06/18/19 05:20: White Blood Count 17.9H, Red Blood Count 3.99L, Hemoglobin 11.5L, Hematocrit 34.4L, Mean Corpuscular Volume 86, Mean Corpuscular Hemoglobin 28.8, Mean Corpuscular Hemoglobin Concent 33.4, Red Cell Distribution Width 12.4, Platelet Count 82L, Mean Platelet Volume 9.6, Neutrophils (%) (Auto) , Lymphocytes (%) ( Auto) , Monocytes (%) (Auto) , Eosinophils (%) (Auto) , Basophils (%) (Auto) , Differential Total Cells Counted 100, Neutrophils % (Manual) 85H, Lymphocytes % (Manual) 2L, Monocytes % (Manual) 4, Eosinophils % (Manual) 3, Basophils % ( Manual) 0, Band Neutrophils 6, Platelet Estimate DecreasedL, Platelet Morphology Normal, Sodium Level 145, Potassium Level 3.7, Chloride Level 112H, Carbon Dioxide Level 18L, Anion Gap 16H, Blood Urea Nitrogen 66H, Creatinine 3.2H, Estimat Glomerular Filtration Rate 19.1, Glucose Level 93, Calcium Level 7.6L, Calcium (Send out) [Pending], Ionized Calcium (Measured) 0.98L, Phosphorus Level 3.5, Magnesium Level 1.8, Iron Level 43L, Total Iron Binding Capacity 99L, Percent Iron Saturation 43, Unsaturated Iron Binding 56L, Total Bilirubin 0.5, Direct Bilirubin 0.3, Aspartate Amino Transf (AST/SGOT) 96H, Alanine Aminotransferase (ALT/SGPT) 90H, Alkaline Phosphatase 451H, Troponin I 1.947H, Total Protein 5.0L, Albumin 1.6L, Globulin 3.4, Albumin/Globulin Ratio 0.5L, Amylase Level 114, Lipase 643H, Vitamin B12 Level 1313H, Vitamin D 25- Hydroxy [Pending], 25-Hydroxy Vitamin D2 [Pending], 25-Hydroxy Vitamin D3 [ Pending], Folate 40.3, Parathyroid Hormone (Intact) [Pending], Hepatitis A IgM Antibody [Pending], Hepatitis B Surface Antigen [Pending], Hepatitis B Core IgM Antibody [Pending], Hepatitis C Antibody [Pending] Height (Feet): 5 Height (Inches): 7.00 Weight (Pounds): 237 General Appearance: no apparent distress, alert Neck: normal alignment, supple Cardiovascular: normal rate, regular rhythm Respiratory/Chest: lungs clear, normal breath sounds, no respiratory distress Abdomen: non tender, soft Neurologic: alert, oriented x 3 Harinder Ochoa MD Jun 18, 2019 10:03
--- NOTE | 2019-06-18 11:05 | General Progress Note ---
Assessment/Plan Problem List: (1) Acute kidney injury superimposed on CKD ICD Codes: N17.9 - Acute kidney failure, unspecified; N18.9 - Chronic kidney disease, unspecified SNOMED: 98493739, 593141533 (2) Sepsis ICD Codes: A41.9 - Sepsis, unspecified organism SNOMED: 21418068 Qualifiers: Qualified Codes: A41.9 - Sepsis, unspecified organism; R65.21 - Severe sepsis with septic shock; N17.9 - Acute kidney failure, unspecified (3) Elevated troponin ICD Codes: R79.89 - Other specified abnormal findings of blood chemistry SNOMED: 753453094, 376323901, 451308510 Status: stable Assessment/Plan: diarrhea anemia esophagitis CM pancreatic pseudocyst ? keep on clears given rise in lipase abx per id fu cardiology ad nephrology repeat labs in am ppi anemia work up stool studies Subjective ROS Limited/Unobtainable: Yes Allergies: Coded Allergies: No Known Allergies (Unverified , 06/02/19) Objective Last 24 Hour Vital Signs Date Time Temp Pulse Resp B/P (MAP) Pulse Ox O2 Delivery O2 Flow Rate FiO2 06/18/19 10:00 95 21 106/51 (69) 97 06/18/19 09:00 107 32 132/65 (87) 94 06/18/19 08:00 98.8 111 32 123/86 (98) 93 06/18/19 07:35 94 Venturi Mask 10.0 45 06/18/19 07:00 103 29 104/55 (71) 97 06/18/19 06:55 91 06/18/19 06:00 103 30 100/43 (62) 96 06/18/19 05:00 110 23 100/48 (65) 95 06/18/19 04:00 Venturi Mask 06/18/19 04:00 98.0 116 22 113/48 (69) 98 06/18/19 04:00 12.0 50 06/18/19 03:00 111 31 133/62 (85) 92 06/18/19 02:22 93 24 93 Venturi Mask 12.0 55 95 28 89 06/18/19 02:00 119 35 123/53 (76) 92 06/18/19 01:00 96 26 118/57 (77) 89 06/18/19 00:00 Venturi Mask 06/18/19 00:00 97.6 102 28 111/67 (82) 94 06/18/19 00:00 6.0 35 06/18/19 00:00 90 06/17/19 23:00 89 26 128/60 (82) 95 06/17/19 22:00 90 25 135/65 (88) 94 06/17/19 21:26 94 26 94 Venturi Mask 6.0 35 94 28 93 06/17/19 21:00 94 26 146/66 (92) 95 06/17/19 20:00 92 06/17/19 20:00 Venturi Mask 06/17/19 20:00 6.0 35 06/17/19 20:00 97.4 89 28 129/58 (81) 98 06/17/19 19:31 97 Nasal Cannula 2.0 28 06/17/19 19:00 93 25 120/64 (82) 98 06/17/19 18:00 92 23 131/65 (87) 91 06/17/19 17:00 97 22 125/57 (79) 90 06/17/19 16:00 98.0 90 25 125/57 (79) 91 06/17/19 16:00 6.0 35 06/17/19 16:00 95 06/17/19 16:00 Bi-pap 06/17/19 15:00 87 23 135/61 (85) 93 06/17/19 14:00 86 23 126/55 (78) 92 06/17/19 13:00 91 25 129/56 (80) 93 06/17/19 12:00 6.0 35 06/17/19 12:00 82 06/17/19 12:00 Bi-pap 06/17/19 12:00 98.2 90 22 123/59 (80) 94 Intake and Output 06/17/19 06/18/19 19:00 07:00 Intake Total 1890 ml 1430 ml Output Total 410 ml 590 ml Balance 1480 ml 840 ml Intake Oral 100 ml 230 ml IV Total 1790 ml 1200 ml Output Urine Total 410 ml 590 ml # Bowel Movements 1 Laboratory Tests 06/18/19 05:20: White Blood Count 17.9H, Red Blood Count 3.99L, Hemoglobin 11.5L, Hematocrit 34.4L, Mean Corpuscular Volume 86, Mean Corpuscular Hemoglobin 28.8, Mean Corpuscular Hemoglobin Concent 33.4, Red Cell Distribution Width 12.4, Platelet Count 82L, Mean Platelet Volume 9.6, Neutrophils (%) (Auto) , Lymphocytes (%) ( Auto) , Monocytes (%) (Auto) , Eosinophils (%) (Auto) , Basophils (%) (Auto) , Differential Total Cells Counted 100, Neutrophils % (Manual) 85H, Lymphocytes % (Manual) 2L, Monocytes % (Manual) 4, Eosinophils % (Manual) 3, Basophils % ( Manual) 0, Band Neutrophils 6, Platelet Estimate DecreasedL, Platelet Morphology Normal, Sodium Level 145, Potassium Level 3.7, Chloride Level 112H, Carbon Dioxide Level 18L, Anion Gap 16H, Blood Urea Nitrogen 66H, Creatinine 3.2H, Estimat Glomerular Filtration Rate 19.1, Glucose Level 93, Calcium Level 7.6L, Calcium (Send out) [Pending], Ionized Calcium (Measured) 0.98L, Phosphorus Level 3.5, Magnesium Level 1.8, Iron Level 43L, Total Iron Binding Capacity 99L, Percent Iron Saturation 43, Unsaturated Iron Binding 56L, Total Bilirubin 0.5, Direct Bilirubin 0.3, Aspartate Amino Transf (AST/SGOT) 96H, Alanine Aminotransferase (ALT/SGPT) 90H, Alkaline Phosphatase 451H, Troponin I 1.947H, Total Protein 5.0L, Albumin 1.6L, Globulin 3.4, Albumin/Globulin Ratio 0.5L, Amylase Level 114, Lipase 643H, Vitamin B12 Level 1313H, Vitamin D 25- Hydroxy [Pending], 25-Hydroxy Vitamin D2 [Pending], 25-Hydroxy Vitamin D3 [ Pending], Folate 40.3, Parathyroid Hormone (Intact) [Pending], Hepatitis A IgM Antibody [Pending], Hepatitis B Surface Antigen [Pending], Hepatitis B Core IgM Antibody [Pending], Hepatitis C Antibody [Pending] 06/18/19 10:30: Activated Partial Thromboplast Time [Pending] Height (Feet): 5 Height (Inches): 7.00 Weight (Pounds): 237 General Appearance: alert EENT: normal ENT inspection Neck: supple Cardiovascular: normal rate Respiratory/Chest: decreased breath sounds Abdomen: normal bowel sounds, non tender, soft Extremities: non-tender Vosoghi,Peyman MD Jun 18, 2019 11:05
[2019-06-18] MEDS ORDERED: Heparin 25,000u/D5W 500ml 500 ML IV SCH ×2 (11:45→19:00)
--- NOTE | 2019-06-18 11:46 | Pulmonolgy Critical Care Note ---
Critical Care - Asmt/Plan Problems: (1) Sepsis (2) Hypoxia (3) Renal failure (4) Acute pancreatitis (5) Acute kidney injury superimposed on CKD (6) Left upper quadrant abdominal mass (7) Elevated troponin (8) Smoker Assessment/Plan: BiPAP qHS and PRN Titrate FiO2 HHN's Monitor volumes and renal function, continue mIVF Diet per GI ABx (RUSTAM/levo) per ID, F/U Cx's F/U cards recs, [facility], ? ischemia eval once acute issues resolve F/U GI recs, F/U CA-19-9 In the future should have a CT chest (screening) when acute issues resolve DVT Px [facility] FC Keep in ICU, transfer to [facility] tommorrow CCT 35 Critical Care - Objective Last 24 Hour Vital Signs Date Time Temp Pulse Resp B/P (MAP) Pulse Ox O2 Delivery O2 Flow Rate FiO2 06/18/19 11:00 93 23 106/59 (75) 93 06/18/19 10:00 95 21 106/51 (69) 97 06/18/19 09:00 107 32 132/65 (87) 94 06/18/19 08:00 Venturi Mask 06/18/19 08:00 12.0 50 06/18/19 08:00 98.8 111 32 123/86 (98) 93 06/18/19 07:35 94 Venturi Mask 10.0 45 06/18/19 07:00 103 29 104/55 (71) 97 06/18/19 06:55 91 06/18/19 06:00 103 30 100/43 (62) 96 06/18/19 05:00 110 23 100/48 (65) 95 06/18/19 04:00 Venturi Mask 06/18/19 04:00 98.0 116 22 113/48 (69) 98 06/18/19 04:00 12.0 50 06/18/19 03:00 111 31 133/62 (85) 92 06/18/19 02:22 93 24 93 Venturi Mask 12.0 55 95 28 89 06/18/19 02:00 119 35 123/53 (76) 92 06/18/19 01:00 96 26 118/57 (77) 89 06/18/19 00:00 Venturi Mask 06/18/19 00:00 97.6 102 28 111/67 (82) 94 06/18/19 00:00 6.0 35 06/18/19 00:00 90 06/17/19 23:00 89 26 128/60 (82) 95 06/17/19 22:00 90 25 135/65 (88) 94 06/17/19 21:26 94 26 94 Venturi Mask 6.0 35 94 28 93 06/17/19 21:00 94 26 146/66 (92) 95 06/17/19 20:00 92 06/17/19 20:00 Venturi Mask 06/17/19 20:00 6.0 35 06/17/19 20:00 97.4 89 28 129/58 (81) 98 06/17/19 19:31 97 Nasal Cannula 2.0 28 06/17/19 19:00 93 25 120/64 (82) 98 06/17/19 18:00 92 23 131/65 (87) 91 06/17/19 17:00 97 22 125/57 (79) 90 06/17/19 16:00 98.0 90 25 125/57 (79) 91 06/17/19 16:00 6.0 35 06/17/19 16:00 95 06/17/19 16:00 Bi-pap 06/17/19 15:00 87 23 135/61 (85) 93 06/17/19 14:00 86 23 126/55 (78) 92 06/17/19 13:00 91 25 129/56 (80) 93 06/17/19 12:00 6.0 35 06/17/19 12:00 82 06/17/19 12:00 Bi-pap 06/17/19 12:00 98.2 90 22 123/59 (80) 94 Status: awake Condition: improving HEENT: atraumatic, normocephalic Neck: full ROM Lungs: clear Heart: HR/BP stable Abdomen: soft, non-tender, active bowel sounds Extremities: no C/C/E Micro: Microbiology Date/Time Source Procedure Growth Status 06/16/19 12:00 Blood Blood Culture - Preliminary NO GROWTH AFTER 24 HOURS Resulted 06/15/19 20:05 Blood Blood Culture - Final Klebsiella Pneumoniae Complete 06/15/19 19:50 Blood Blood Culture - Final Klebsiella Pneumoniae Complete 06/17/19 10:00 Sputum Induced Gram Stain Pending Resulted 06/17/19 10:00 Sputum Induced Sputum Culture - Preliminary NO GROWTH Resulted 06/15/19 23:20 Nasal Nares MRSA Culture - Final NO METHICILLIN RESISTANT STAPH AUREUS... Complete 06/15/19 21:48 Urine,Clean Catch Urine Culture - Final NO GROWTH AFTER 48 HOURS Complete 06/15/19 23:20 Rectum - Final NO CARBAPENEM-RESISTANT ENTEROBACTERI... Complete 06/15/19 23:20 Rectum VRE Culture - Final NO VANCOMYCIN RESISTANT ENTEROCOCCUS ... Complete Accucheck: 98 Critical Care - Subjective ROS Limited/Unobtainable: Yes ICU Day: 4 Interval Events: AFVSS x ST off pressors Angy PO, HD stable No cough or SOB no FC no CP Condition: improving IV Access: PICC EKG Rhythm: Sinus Tachycardia FI02: 50 Vent Support Mode: BiLevel Sputum Amount: None Fluids: D5LR@100 Drips: N/A I&O: Intake and Output 06/17/19 06/18/19 19:00 07:00 Intake Total 1890 ml 1430 ml Output Total 410 ml 590 ml Balance 1480 ml 840 ml Intake Oral 100 ml 230 ml IV Total 1790 ml 1200 ml Output Urine Total 410 ml 590 ml # Bowel Movements 1 Subjective: No F/C/CP/SOB/coughh CXR: PVC Labs: Laboratory Tests Test 06/18/19 05:20 06/18/19 10:30 White Blood Count 17.9 K/UL (4.8-10.8) H Red Blood Count 3.99 M/UL (4.70-6.10) L Hemoglobin 11.5 G/DL (14.2-18.0) L Hematocrit 34.4 % (42.0-52.0) L Mean Corpuscular Volume 86 FL (80-99) Mean Corpuscular Hemoglobin 28.8 PG (27.0-31.0) Mean Corpuscular Hemoglobin Concent 33.4 G/DL (32.0-36.0) Red Cell Distribution Width 12.4 % (11.6-14.8) Platelet Count 82 K/UL (150-450) L Mean Platelet Volume 9.6 FL (6.5-10.1) Neutrophils (%) (Auto) % (45.0-75.0) Lymphocytes (%) (Auto) % (20.0-45.0) Monocytes (%) (Auto) % (1.0-10.0) Eosinophils (%) (Auto) % (0.0-3.0) Basophils (%) (Auto) % (0.0-2.0) Differential Total Cells Counted 100 Neutrophils % (Manual) 85 % (45-75) H Lymphocytes % (Manual) 2 % (20-45) L Monocytes % (Manual) 4 % (1-10) Eosinophils % (Manual) 3 % (0-3) Basophils % (Manual) 0 % (0-2) Band Neutrophils 6 % (0-8) Platelet Estimate Decreased L Platelet Morphology Normal Sodium Level 145 MMOL/L (136-145) Potassium Level 3.7 MMOL/L (3.5-5.1) Chloride Level 112 MMOL/L (98-107) H Carbon Dioxide Level 18 MMOL/L (21-32) L Anion Gap 16 mmol/L (5-15) H Blood Urea Nitrogen 66 mg/dL (7-18) H Creatinine 3.2 MG/DL (0.55-1.30) H Estimat Glomerular Filtration Rate 19.1 mL/min (>60) Glucose Level 93 MG/DL (74-106) Calcium Level 7.6 MG/DL (8.5-10.1) L Calcium (Send out) Pending Ionized Calcium (Measured) 0.98 mmol/L (1.10-1.35) L Phosphorus Level 3.5 MG/DL (2.5-4.9) Magnesium Level 1.8 MG/DL (1.8-2.4) Iron Level 43 ug/dL (50-175) L Total Iron Binding Capacity 99 ug/dL (250-450) L Percent Iron Saturation 43 % (15-50) Unsaturated Iron Binding 56 ug/dL (112-346) L Total Bilirubin 0.5 MG/DL (0.2-1.0) Direct Bilirubin 0.3 MG/DL (0.0-0.3) Aspartate Amino Transf (AST/SGOT) 96 U/L (15-37) H Alanine Aminotransferase (ALT/SGPT) 90 U/L (12-78) H Alkaline Phosphatase 451 U/L (46-116) H Troponin I 1.947 ng/mL (0.000-0.056) Total Protein 5.0 G/DL (6.4-8.2) L Albumin 1.6 G/DL (3.4-5.0) L Globulin 3.4 g/dL Albumin/Globulin Ratio 0.5 (1.0-2.7) L Amylase Level 114 U/L (25-115) Lipase 643 U/L (73-393) H Vitamin B12 Level 1313 PG/ML (193-986) H Vitamin D 25-Hydroxy Pending 25-Hydroxy Vitamin D2 Pending 25-Hydroxy Vitamin D3 Pending Folate 40.3 NG/ML (8.6-58.9) Parathyroid Hormone (Intact) Pending Hepatitis A IgM Antibody Pending Hepatitis B Surface Antigen Pending Hepatitis B Core IgM Antibody Pending Hepatitis C Antibody Pending Activated Partial Thromboplast Time 29 SEC (23-33) Homero Moran MD Jun 18, 2019 11:46
--- NOTE | 2019-06-18 12:00 | NUR ---
NURSE NOTES: Heparin drip was started per MD order. PTT was drawn, and Heparin drip is started at 9units/kg/hour per protocol/pharmacy. VS remain stable. Pt is afebrile. Family is at bedside. IV fluid D5LR is also infusing at 100ml/hour. Pt was seen by Dr Moran. Per MD, ok to use Bipap QHS and PRN if needed. Per MD, pt should remain in ICU one more night. Order was also placed for physical therapy consult per MD.
[2019-06-18] MEDS ORDERED: Calcium Chloride 10% 10ml carpuject IVP ONE (12:30)
[2019-06-18] MEDS ORDERED: Calcium Gluconate 1gm in NS 110ml IVPB ONE (14:00)
--- NOTE | 2019-06-18 14:00 | NUR ---
NURSE NOTES: Heparin drip continues at 9units/kg/hour. Next PTT to be drawn at 1800 timed, along with repeat Troponin. Pt was cleaned and repositioned. VS remains stable.
--- NOTE | 2019-06-18 15:10 | Cardiology Progress Note ---
Assessment/Plan Status: stable Assessment/Plan Assessment/Plan 73 year old man with HTN, IDDM, ? history of CVA who presented to [facility] ED with nausea,vomiting and hypertensive urgency and SOB -Empiric ABX and IV fluids -BiPAP prn, now on venti mask and improing -Pulmonary support -Echocardiogram pending -Replete electrolytes -BP medications held -Hold pressors for now, monitor UOP -Midodrine Prn -Serial Troponin - likely demand ischemia, heparin started for 48 hours, monitor for bleeding, monitor platelets -Stress test prior to d/c when stable Subjective Cardiovascular: Reports: no symptoms Respiratory: Reports: no symptoms Gastrointestinal/Abdominal: Reports: no symptoms Genitourinary: Reports: no symptoms Subjective No acute events, on Venti-mask. Troponin elevated, heparin started for demand ischemia. No chest pain. Echocardiogram pending. Objective Last 24 Hour Vital Signs Date Time Temp Pulse Resp B/P (MAP) Pulse Ox O2 Delivery O2 Flow Rate FiO2 06/18/19 11:00 93 23 106/59 (75) 93 06/18/19 10:00 95 21 106/51 (69) 97 06/18/19 09:00 107 32 132/65 (87) 94 06/18/19 08:00 Venturi Mask 06/18/19 08:00 12.0 50 06/18/19 08:00 98.8 111 32 123/86 (98) 93 06/18/19 07:35 94 Venturi Mask 10.0 45 06/18/19 07:00 103 29 104/55 (71) 97 06/18/19 06:55 91 06/18/19 06:00 103 30 100/43 (62) 96 06/18/19 05:00 110 23 100/48 (65) 95 06/18/19 04:00 Venturi Mask 06/18/19 04:00 98.0 116 22 113/48 (69) 98 06/18/19 04:00 12.0 50 06/18/19 03:00 111 31 133/62 (85) 92 06/18/19 02:22 93 24 93 Venturi Mask 12.0 55 95 28 89 06/18/19 02:00 119 35 123/53 (76) 92 06/18/19 01:00 96 26 118/57 (77) 89 06/18/19 00:00 Venturi Mask 06/18/19 00:00 97.6 102 28 111/67 (82) 94 06/18/19 00:00 6.0 35 06/18/19 00:00 90 06/17/19 23:00 89 26 128/60 (82) 95 06/17/19 22:00 90 25 135/65 (88) 94 06/17/19 21:26 94 26 94 Venturi Mask 6.0 35 94 28 93 06/17/19 21:00 94 26 146/66 (92) 95 06/17/19 20:00 92 06/17/19 20:00 Venturi Mask 06/17/19 20:00 6.0 35 06/17/19 20:00 97.4 89 28 129/58 (81) 98 06/17/19 19:31 97 Nasal Cannula 2.0 28 06/17/19 19:00 93 25 120/64 (82) 98 06/17/19 18:00 92 23 131/65 (87) 91 06/17/19 17:00 97 22 125/57 (79) 90 06/17/19 16:00 98.0 90 25 125/57 (79) 91 06/17/19 16:00 6.0 35 06/17/19 16:00 95 06/17/19 16:00 Bi-pap General Appearance: no apparent distress, alert EENT: PERRL/EOMI, normal ENT inspection, TMs normal, pharynx normal Neck: non-tender, normal alignment, supple, normal inspection, no JVD Rhythm: NSR Cardiovascular: normal peripheral pulses, normal rate, regular rhythm Respiratory/Chest: chest wall non-tender, lungs clear Abdomen: normal bowel sounds, non tender, soft, no organomegaly, no mass Extremities: normal range of motion, non-tender, normal inspection, no calf tenderness, no swelling 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0) Red Cell Distribution Width 12.4 % (11.6-14.8) Platelet Count 82 K/UL (150-450) L Mean Platelet Volume 9.6 FL (6.5-10.1) Neutrophils (%) (Auto) % (45.0-75.0) Lymphocytes (%) (Auto) % (20.0-45.0) Monocytes (%) (Auto) % (1.0-10.0) Eosinophils (%) (Auto) % (0.0-3.0) Basophils (%) (Auto) % (0.0-2.0) Differential Total Cells Counted 100 Neutrophils % (Manual) 85 % (45-75) H Lymphocytes % (Manual) 2 % (20-45) L Monocytes % (Manual) 4 % (1-10) Eosinophils % (Manual) 3 % (0-3) Basophils % (Manual) 0 % (0-2) Band Neutrophils 6 % (0-8) Platelet Estimate Decreased L Platelet Morphology Normal Sodium Level 145 MMOL/L (136-145) Potassium Level 3.7 MMOL/L (3.5-5.1) Chloride Level 112 MMOL/L (98-107) H Carbon Dioxide Level 18 MMOL/L (21-32) L Anion Gap 16 mmol/L (5-15) H Blood Urea Nitrogen 66 mg/dL (7-18) H Creatinine 3.2 MG/DL (0.55-1.30) H Estimat Glomerular Filtration Rate 19.1 mL/min (>60) Glucose Level 93 MG/DL (74-106) Calcium Level 7.6 MG/DL (8.5-10.1) L Calcium (Send out) Pending Ionized Calcium (Measured) 0.98 mmol/L (1.10-1.35) L Phosphorus Level 3.5 MG/DL (2.5-4.9) Magnesium Level 1.8 MG/DL (1.8-2.4) Iron Level 43 ug/dL (50-175) L Total Iron Binding Capacity 99 ug/dL (250-450) L Percent Iron Saturation 43 % (15-50) Unsaturated Iron Binding 56 ug/dL (112-346) L Total Bilirubin 0.5 MG/DL (0.2-1.0) Direct Bilirubin 0.3 MG/DL (0.0-0.3) Aspartate Amino Transf (AST/SGOT) 96 U/L (15-37) H Alanine Aminotransferase (ALT/SGPT) 90 U/L (12-78) H Alkaline Phosphatase 451 U/L (46-116) H Troponin I 1.947 ng/mL (0.000-0.056) Total Protein 5.0 G/DL (6.4-8.2) L Albumin 1.6 G/DL (3.4-5.0) L Globulin 3.4 g/dL Albumin/Globulin Ratio 0.5 (1.0-2.7) L Amylase Level 114 U/L (25-115) Lipase 643 U/L (73-393) H Vitamin B12 Level 1313 PG/ML (193-986) H Vitamin D 25-Hydroxy Pending 25-Hydroxy Vitamin D2 Pending 25-Hydroxy Vitamin D3 Pending Folate 40.3 NG/ML (8.6-58.9) Parathyroid Hormone (Intact) Pending Hepatitis A IgM Antibody Pending Hepatitis B Surface Antigen Pending Hepatitis B Core IgM Antibody Pending Hepatitis C Antibody Pending Activated Partial Thromboplast Time 29 SEC (23-33) Microbiology Date/Time Source Procedure Growth Status 06/16/19 12:00 Blood Blood Culture - Preliminary NO GROWTH AFTER 24 HOURS Resulted 06/15/19 20:05 Blood Blood Culture - Final Klebsiella Pneumoniae Complete 06/15/19 19:50 Blood Blood Culture - Final Klebsiella Pneumoniae Complete 06/17/19 10:00 Sputum Induced Gram Stain Pending Resulted 06/17/19 10:00 Sputum Induced Sputum Culture - Preliminary NO GROWTH Resulted 06/15/19 23:20 Nasal Nares MRSA Culture - Final NO METHICILLIN RESISTANT STAPH AUREUS... Complete 06/15/19 21:48 Urine,Clean Catch Urine Culture - Final NO GROWTH AFTER 48 HOURS Complete 06/15/19 23:20 Rectum - Final NO CARBAPENEM-RESISTANT ENTEROBACTERI... Complete 06/15/19 23:20 Rectum VRE Culture - Final NO VANCOMYCIN RESISTANT ENTEROCOCCUS ... Complete Paul Reed MD Jun 18, 2019 15:10
--- NOTE | 2019-06-18 16:00 | NUR ---
NURSE NOTES: Order noted for 2D Echo by Dr Reed, awaiting for cardiology/ultx tech. Pt is currently asleep with stable VS, while on Heparin drip.
--- NOTE | 2019-06-18 16:28 | Infectious Diseases Prog Note ---
Assessment/Plan Assessment/Plan 1. klebsiella bacteremia, sepsis, shock, pna vs chf, ? cap, aspiration risk, leukocytosis, pancreatitis, pseudocyst, ct noted, ? uti - change abx to ceftriaxone, flagyl and doxycycline - f/u on labs and chest x-ray, f/u on legionella and mycoplasma - icu care, respiratory care - continue treatment per primary care team and consultants - clinically improved, surveillance blood cultures negative 2. Shock - improved, off pressors 3. Shortness of breath, hypoxia, on BiPAP - improved, off pressors 4. Pulmonary followup. 5. Acute renal failure. 6. Anemia. 7. Diabetes. 8. Hypertension. 9. Blood sugar and blood pressure treatment per primary care team. 10. Possible CVA history. 11. No known drug allergies. 12. Social history is negative. 13. Family history is noncontributory. 14. MAR was noted. 15. Case discussed with RN. 16. Continue treatment per primary consultants. 17. ICU care. 18. Skin care protocol. 19. Orders were noted and entered. 20. GI followup. Subjective Constitutional: Reports: other - off bipap, alert, no pressors, in icu ; Denies : fever HEENT: Reports: congestion - less Respiratory: Reports: shortness of breath - less Cardiovascular: Denies: chest pain Gastrointestinal/Abdominal: Denies: nausea, vomiting, diarrhea Genitourinary: Denies: dysuria Psychiatric: Denies: depression Skin: Denies: rash Hematologic: Denies: bleeding Musculoskeletal: Denies: pain Allergies: Coded Allergies: No Known Allergies (Unverified , 06/02/19) Objective Vital Signs Last 24 Hour Vital Signs Date Time Temp Pulse Resp B/P (MAP) Pulse Ox O2 Delivery O2 Flow Rate FiO2 06/18/19 15:00 98 32 129/117 (121) 91 06/18/19 14:00 91 27 125/47 (73) 96 06/18/19 13:00 98.2 103 26 126/51 (76) 91 06/18/19 12:00 3.0 06/18/19 12:00 Venturi Mask 06/18/19 12:00 92 24 122/61 (81) 95 06/18/19 12:00 103 06/18/19 11:00 93 23 106/59 (75) 93 06/18/19 10:00 95 21 106/51 (69) 97 06/18/19 09:00 107 32 132/65 (87) 94 06/18/19 08:00 Venturi Mask 06/18/19 08:00 12.0 50 06/18/19 08:00 98.8 111 32 123/86 (98) 93 06/18/19 08:00 112 06/18/19 07:35 94 Venturi Mask 10.0 45 06/18/19 07:00 103 29 104/55 (71) 97 06/18/19 06:55 91 06/18/19 06:00 103 30 100/43 (62) 96 06/18/19 05:00 110 23 100/48 (65) 95 06/18/19 04:00 Venturi Mask 06/18/19 04:00 98.0 116 22 113/48 (69) 98 06/18/19 04:00 12.0 50 06/18/19 03:00 111 31 133/62 (85) 92 06/18/19 02:22 93 24 93 Venturi Mask 12.0 55 95 28 89 06/18/19 02:00 119 35 123/53 (76) 92 06/18/19 01:00 96 26 118/57 (77) 89 06/18/19 00:00 Venturi Mask 06/18/19 00:00 97.6 102 28 111/67 (82) 94 06/18/19 00:00 6.0 35 06/18/19 00:00 90 06/17/19 23:00 89 26 128/60 (82) 95 06/17/19 22:00 90 25 135/65 (88) 94 06/17/19 21:26 94 26 94 Venturi Mask 6.0 35 94 28 93 06/17/19 21:00 94 26 146/66 (92) 95 06/17/19 20:00 92 06/17/19 20:00 Venturi Mask 06/17/19 20:00 6.0 35 06/17/19 20:00 97.4 89 28 129/58 (81) 98 06/17/19 19:31 97 Nasal Cannula 2.0 28 06/17/19 19:00 93 25 120/64 (82) 98 06/17/19 18:00 92 23 131/65 (87) 91 06/17/19 17:00 97 22 125/57 (79) 90 Height (Feet): 5 Height (Inches): 7.00 Weight (Pounds): 237 General Appearance: no acute distress HEENT: normocephalic, atraumatic, anicteric, mucous membranes moist Respiratory/Chest: crackles/rales, rhonchi - bilaterally Cardiovascular: normal rate, regular rhythm, no gallop/murmur, no JVD Abdomen: normal bowel sounds, soft, non tender, no organomegaly, non distended Genitourinary: other - + contreras Extremities: no cyanosis Skin: no rash 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 Findings: Pulmonary vascular interstitial prominence demonstrated with cardiomegaly. There is a left-sided PICC line with the tip projected over the SVC. Old right clavicle fracture noted. IMPRESSION: Mild CHF CT abdomen and pelvis: Impression: Unilocular left upper quadrant cystic mass adjacent to the tail of pancreas and the greater curvature of the stomach. Favor pancreatic pseudocyst, particularly in view of evidence of pancreatic atrophy. However, cystic neoplasm of pancreatic, gastric, or other origin also possible. Consider contrast MRI for better characterization Small ventral hernia containing a single small loop of small bowel, no definite obstruction or strangulation related to such Mildly distended proximal small bowel with slow forward transit of ingested contrast. Suspect ileus or enteritis, although early/partial small bowel obstruction also possible. Correlate with clinical findings Mild distal soft tissue wall thickening, esophagitis possible. Correlate with clinical findings Bilateral basilar pulmonary parenchymal infiltrates versus edema, fairly extensive Cardiomegaly. Apparent bladder wall thickening. Probably an artifact of lack of distention, but cystitis also possible Nonspecific bilateral perinephric fat stranding. Suspect chronic although acute renal inflammation also possible Microbiology Date/Time Source Procedure Growth Status 06/16/19 12:00 Blood Blood Culture - Preliminary NO GROWTH AFTER 24 HOURS Resulted 06/15/19 20:05 Blood Blood Culture - Final Klebsiella Pneumoniae Complete 06/15/19 19:50 Blood Blood Culture - Final Klebsiella Pneumoniae Complete 06/17/19 10:00 Sputum Induced Gram Stain Pending Resulted 06/17/19 10:00 Sputum Induced Sputum Culture - Preliminary NO GROWTH Resulted 06/15/19 23:20 Nasal Nares MRSA Culture - Final NO METHICILLIN RESISTANT STAPH AUREUS... Complete 06/15/19 21:48 Urine,Clean Catch Urine Culture - Final NO GROWTH AFTER 48 HOURS Complete 06/15/19 23:20 Rectum - Final NO CARBAPENEM-RESISTANT ENTEROBACTERI... Complete 06/15/19 23:20 Rectum VRE Culture - Final NO VANCOMYCIN RESISTANT ENTEROCOCCUS ... Complete Laboratory Tests Test 06/18/19 05:20 06/18/19 10:30 White Blood Count 17.9 K/UL (4.8-10.8) H Red Blood Count 3.99 M/UL (4.70-6.10) L Hemoglobin 11.5 G/DL (14.2-18.0) L Hematocrit 34.4 % (42.0-52.0) L Mean Corpuscular Volume 86 FL (80-99) Mean Corpuscular Hemoglobin 28.8 PG (27.0-31.0) Mean Corpuscular Hemoglobin Concent 33.4 G/DL (32.0-36.0) Red Cell Distribution Width 12.4 % (11.6-14.8) Platelet Count 82 K/UL (150-450) L Mean Platelet Volume 9.6 FL (6.5-10.1) Neutrophils (%) (Auto) % (45.0-75.0) Lymphocytes (%) (Auto) % (20.0-45.0) Monocytes (%) (Auto) % (1.0-10.0) Eosinophils (%) (Auto) % (0.0-3.0) Basophils (%) (Auto) % (0.0-2.0) Differential Total Cells Counted 100 Neutrophils % (Manual) 85 % (45-75) H Lymphocytes % (Manual) 2 % (20-45) L Monocytes % (Manual) 4 % (1-10) Eosinophils % (Manual) 3 % (0-3) Basophils % (Manual) 0 % (0-2) Band Neutrophils 6 % (0-8) Platelet Estimate Decreased L Platelet Morphology Normal Sodium Level 145 MMOL/L (136-145) Potassium Level 3.7 MMOL/L (3.5-5.1) Chloride Level 112 MMOL/L (98-107) H Carbon Dioxide Level 18 MMOL/L (21-32) L Anion Gap 16 mmol/L (5-15) H Blood Urea Nitrogen 66 mg/dL (7-18) H Creatinine 3.2 MG/DL (0.55-1.30) H Estimat Glomerular Filtration Rate 19.1 mL/min (>60) Glucose Level 93 MG/DL (74-106) Calcium Level 7.6 MG/DL (8.5-10.1) L Calcium (Send out) Pending Ionized Calcium (Measured) 0.98 mmol/L (1.10-1.35) L Phosphorus Level 3.5 MG/DL (2.5-4.9) Magnesium Level 1.8 MG/DL (1.8-2.4) Iron Level 43 ug/dL (50-175) L Total Iron Binding Capacity 99 ug/dL (250-450) L Percent Iron Saturation 43 % (15-50) Unsaturated Iron Binding 56 ug/dL (112-346) L Total Bilirubin 0.5 MG/DL (0.2-1.0) Direct Bilirubin 0.3 MG/DL (0.0-0.3) Aspartate Amino Transf (AST/SGOT) 96 U/L (15-37) H Alanine Aminotransferase (ALT/SGPT) 90 U/L (12-78) H Alkaline Phosphatase 451 U/L (46-116) H Troponin I 1.947 ng/mL (0.000-0.056) Total Protein 5.0 G/DL (6.4-8.2) L Albumin 1.6 G/DL (3.4-5.0) L Globulin 3.4 g/dL Albumin/Globulin Ratio 0.5 (1.0-2.7) L Amylase Level 114 U/L (25-115) Lipase 643 U/L (73-393) H Vitamin B12 Level 1313 PG/ML (193-986) H Vitamin D 25-Hydroxy Pending 25-Hydroxy Vitamin D2 Pending 25-Hydroxy Vitamin D3 Pending Folate 40.3 NG/ML (8.6-58.9) Parathyroid Hormone (Intact) Pending Hepatitis A IgM Antibody Pending Hepatitis B Surface Antigen Pending Hepatitis B Core IgM Antibody Pending Hepatitis C Antibody Pending Activated Partial Thromboplast Time 29 SEC (23-33) Current Medications Medications (Trade) Dose Ordered Sig/Arley Route PRN Reason Start Time Stop Time Status Last Admin Dose Admin Acetaminophen (Tylenol) 650 mg Q4H PRN ORAL Mild Pain (Pain Scale 1-3) 06/15/19 22:45 07/15/19 22:44 Albumin Human 50 ml @ 50 mls/hr DAILY PRN IV For hypotension 06/17/19 00:00 07/17/19 00:00 Aspirin (ASA) 81 mg DAILY NG 06/16/19 09:00 07/16/19 08:59 06/18/19 09:03 Bisacodyl (Dulcolax) 10 mg DAILYPRN PRN RECTAL Constipation 06/15/19 22:45 07/15/19 22:44 Ceftriaxone Sodium 1 gm/ Dextrose 50 ml @ 100 mls/hr Q24H IVPB 06/18/19 16:15 06/25/19 16:14 UNV Chlorhexidine Gluconate (Mena-Hex 2%) 1 applic DAILY@2000 TOPIC 06/16/19 20:00 07/16/19 19:59 06/17/19 20:13 Dextrose (Dextrose 50%) 25 ml Q30M PRN IV Hypoglycemia 06/16/19 01:00 07/16/19 00:59 Dextrose (Dextrose 50%) 50 ml Q30M PRN IV Hypoglycemia 06/16/19 01:00 07/16/19 00:59 Dextrose/Lactated Ringer's 1,000 ml @ 100 mls/hr Q10H IV 06/17/19 02:00 07/16/19 01:59 06/18/19 09:02 Docusate Sodium (Colace) 100 mg EVERY 12 HOURS ORAL 06/16/19 09:00 07/16/19 08:59 06/17/19 21:19 Heparin Sodium/ Dextrose 500 ml @ 19.35 mls/ hr ADJUST PER PROTOCOL IV 06/18/19 11:45 07/18/19 11:44 06/18/19 12:05 Hydromorphone HCl (Dilaudid) 0.5 mg Q4H PRN IVP Moderate Pain (Pain Scale 4-6) 06/16/19 04:32 06/23/19 04:31 06/16/19 12:17 Insulin Aspart (NovoLOG) Q6HR SUBQ 06/16/19 06:00 07/16/19 05:59 06/18/19 00:27 Ipratropium [place] (Atrovent) 500 mcg Q4H PRN HHN Shortness of Breath 06/16/19 16:15 06/21/19 16:14 06/18/19 02:20 Magnesium Hydroxide (Mom) 30 ml HSPRN PRN ORAL Constipation 06/15/19 22:45 07/15/19 22:44 Metronidazole 100 ml @ 100 mls/hr Q8HR IVPB 06/18/19 22:00 06/25/19 21:59 UNV Ondansetron HCl (Zofran) 4 mg Q6H PRN IVP Nausea & Vomiting 06/15/19 22:45 07/15/19 22:44 Pantoprazole (Protonix) 40 mg DAILY IVP 06/16/19 09:00 07/16/19 08:59 06/18/19 09:02 Phenylephrine HCl 50 mg/Dextrose 250 ml @ 0 mls/hr Q24H IV 06/16/19 08:30 07/16/19 08:29 Pranay Waller MD Jun 18, 2019 16:28
--- NOTE | 2019-06-18 18:00 | NUR ---
NURSE NOTES: Pt was cleaned and repositioned, and is now having dinner. VS remain stable. technical sales representatives is at bedside to draw PTT and Troponin. Heparin drip is maintained at 9units/kg/hour. Will wait for next PTT result.
[2019-06-18] MEDS: cefTRIAXone 1 GM in D5W 50 ML IVPB SCH (18:05)
[2019-06-18] MEDS ORDERED: Heparin 5000 units/ml inj IV SCH (19:00)
--- NOTE | 2019-06-18 19:24 | NUR ---
HAND-OFF: Report given to Megan SCHULER. Heparin drip was increased to 13units/kg/hour per last ptt result and protocol. Endorsed plan of care. VS remain stable.
--- NOTE | 2019-06-18 19:30 | NUR ---
NURSE NOTES: Received pt awake AO x3, on 02 at 4l/nc, 02 sat 100%. BS + expiratory wheezing noted bilateral. SR on the monitor. BP stable afebrile.PT on Heparin drip at 13u/kg, and D5LR at 100c/hr. All IVF been infusing to MERRILL PICC line. Site with drsg dry and intact, PT skin is intact. Rivero to gravity with moderate amt. of yellowish urine. Monitor I and O. Monitor lytes. Pt received resp. Tx from RT. Tolerating well. Will continue to monitor.
[2019-06-18] MEDS: Dyna-Hex 2% Top Sol 2oz TOPIC SCH (20:04)
--- NOTE | 2019-06-18 21:00 | NUR ---
NURSE NOTES: PT had x1 liquid stools , unable to collect speimen stools stick to the chucks. Cleaned up pt.
--- NOTE | 2019-06-18 22:00 | NUR ---
NURSE NOTES: Resting well at this time. No CP nor SOB noted. Will continue to monitor.
--- NOTE | 2019-06-18 23:05 | NUR ---
HAND-OFF: Report given to Jose Awad RN for continuity of care..
--- NOTE | 2019-06-18 23:05 | NUR ---
NURSE NOTES: RECEIVED PATIENT FROM GANGA DUKES.
--- NOTE | 2019-06-18 23:08 | NUR ---
NURSE NOTES: PATIENT ALERT, ORIENTED X4, DENIED PAIN OR SOB, RESPIRATION REGULAR, ON O2 2LPM VIA NC, O2 SATURATION 100% NOTED, HEART RATE 90'S/MIN SINUS RHYTHM, ABDOMEN SOFT, ROUND, NON TENDER, NO BM STATUS, NO N/V NOTED, F/C INTACT AND PATENT, YELLOW URINE OUTED, PICC LINE TO LEFT UPPER ARM AND PPL TO LEFT HAND AND AC, INTACT AND PATENT, ONGOING IV FLUID D5W LR AT 100ML/HR AND HEPARIN 13 UNITS/KG/HR VIA PICC LINE, KEPT FALL AND ASPIRATION PRECAUTION, ON BED ALARM AND LOCKED, MADE LOWER BED POSITION, PROVIDED CALL LIGHT WITHIN REACH, WILL CONTINUE TO MONITOR.
--- NOTE | 2019-06-18 23:13 | NUR ---
RESPIRATORY NOTE: Pt placed on BiPAP for nightly use. Pt now on BiPAP 15/5, backup rate 14, 35%. Pt on a Facial mask, skin intact, no redness/breakdowns noted. Foam tape applied on pt's nosebridge/cheeks/chin to prevent mask irritations. Pt is alert/awake, follows commands. B/S joe. diminished, nonproductive, dry, cough. BiPAP plugged into red outlet, alarms on & audible. Pt comfortable,in no apparent distress at this time. Will continue to monitor pt.
[2019-06-19] VITALS (25 sets, daily range): BP systolic 83–162; BP diastolic 43–87
--- NOTE | 2019-06-19 00:56 | NUR ---
NURSE NOTES: PATIENT ASLEEP STATUS, NO SOB NOTED ON BIPAP I/E 15/5, FIO2 35%, O2 SATURATION OVER 97% NOTED, WILL CONTINUE TO MONITOR.
--- NOTE | 2019-06-19 02:09 | NUR ---
NURSE NOTES: LE: CALLED BACK FROM [facility] PHARMACIST REGARDING PTT RESULT 43 THAT CHANGED HEPARIN RATE PER PROTOCOLS, WILL FOLLOW UP.
[2019-06-19] MEDS ORDERED: Heparin 5000 units/ml inj IV SCH ×2 (02:15)
[2019-06-19] MEDS: Heparin 25,000u/D5W 500ml 500 ML IV SCH ×2 (02:30→06:19)
--- NOTE | 2019-06-19 02:47 | NUR ---
NURSE NOTES: REPOSITIONED, INFORMED THE PATIENT HEPARIN DRIP 17 UNITS/KG/HR PER PROTOCOLS THAT WAS AWARE.
[2019-06-19] MEDS: Dextrose 5%/Lactated Ringer's 1,000 ML IV SCH ×2 (03:00→14:08)
--- NOTE | 2019-06-19 04:58 | NUR ---
NURSE NOTES: MORNING CARE WAS DONE, NO BM STATUS, ONGOING HEPARIN DRIP 17 UNITS/KG/HR VIA LEFT UPPER ARM PICC LINE.
[2019-06-19 05:36] LABS: HEMATOCRIT 30.6 % (42.0-52.0); HEMOGLOBIN 10.3 G/DL (14.2-18.0); MEAN CORPUSCULAR VOLUME 86 FL (80-99); PLATELET COUNT 48 K/UL (150-450); RED BLOOD COUNT 3.57 M/UL (4.70-6.10); RED CELL DISTRIBUTION WIDTH 12.5 % (11.6-14.8); WHITE BLOOD COUNT 18.5 K/UL (4.8-10.8)
[2019-06-19] MEDS: NovoLOG Insulin Flexpen SUBQ SCH ×3 (05:45→18:00)
--- NOTE | 2019-06-19 05:50 | NUR ---
NURSE NOTES: LE; PATIENT REFUSED BIPAP THAT CHANGED TO O2 2LPM VIA NC, O2 SATURATION 93% NOTED, COUGH SIGN WITHOUT DISCHARGE AT THIS TIME.
[2019-06-19 05:53] LABS: ALANINE AMINOTRANSFERASE 83 U/L (12-78); ALBUMIN 1.7 G/DL (3.4-5.0); ALBUMIN/GLOBULIN RATIO 0.5 (1.0-2.7); ALKALINE PHOSPHATASE 90 U/L (46-116); ANION GAP 11 mmol/L (5-15); ASPARTATE AMINO TRANSFERASE 68 U/L (15-37); BILIRUBIN,TOTAL 0.5 MG/DL (0.2-1.0); BLOOD UREA NITROGEN 63 mg/dL (7-18); CALCIUM 7.8 MG/DL (8.5-10.1); CARBON DIOXIDE 20 MMOL/L (21-32); CHLORIDE 109 MMOL/L (98-107); CREATININE 2.6 MG/DL (0.55-1.30); POTASSIUM 3.9 MMOL/L (3.5-5.1); SODIUM 140 MMOL/L (136-145)
--- NOTE | 2019-06-19 06:50 | NUR ---
NURSE NOTES: LE: PATIENT DENIED PAIN OR DISTRESS AT THIS SHIFT.
--- NOTE | 2019-06-19 07:19 | NUR ---
HAND-OFF: Report given to GANGA TURK.
--- NOTE | 2019-06-19 07:20 | NUR ---
NURSE NOTES: Report received from Kavon Awad RN. Pt is awake and alert x 4 in bed. Sinus rhythm with BBB on phototypesetting equipment monitor. On 2L N/C. O2 sat 94%. Coughing up phlegm at times and pt is able to cough out. No external bleeding noted. Rivero in place draining to gravity. MERRILL PICC patent and asymptomatic. IV to left hand G20 and left AC G20 patent and asymptomatic. Pt is on D5LR at 100cc/hr and Heparin drip at 17 units/kg/hr. Bed in lowest position. Side rails up x3. Call light within reach. Will resume plan of care.
[2019-06-19] MEDS: Phenylephrine 50 MG in D5W 245 ML IV SCH (08:30)
[2019-06-19] MEDS: Docusate 100mg cap ORAL SCH ×2 (09:00→21:51)
--- NOTE | 2019-06-19 09:23 | General Progress Note ---
Assessment/Plan Problem List: (1) Acute kidney injury superimposed on CKD ICD Codes: N17.9 - Acute kidney failure, unspecified; N18.9 - Chronic kidney disease, unspecified SNOMED: 96193545, 096166412 (2) Sepsis ICD Codes: A41.9 - Sepsis, unspecified organism SNOMED: 88989701 Qualifiers: Qualified Codes: A41.9 - Sepsis, unspecified organism; R65.21 - Severe sepsis with septic shock; N17.9 - Acute kidney failure, unspecified (3) Elevated troponin ICD Codes: R79.89 - Other specified abnormal findings of blood chemistry SNOMED: 694106830, [id number], [id number] Status: stable Assessment/Plan: diarrhea anemia esophagitis CM pancreatic pseudocyst ? trending down amyalse and lipase advance diet to full liquid patient will need EUS but given elevated trop will hold for now consider repeat CT in 4 weeks for pseudocyst fu abx per id fu cardiology ad nephrology repeat labs in am ppi anemia work up stool studies Subjective ROS Limited/Unobtainable: No Allergies: Coded Allergies: No Known Allergies (Unverified , 06/02/19) Objective Last 24 Hour Vital Signs Date Time Temp Pulse Resp B/P (MAP) Pulse Ox O2 Delivery O2 Flow Rate FiO2 06/19/19 07:00 82 25 140/74 (96) 94 06/19/19 06:00 78 15 140/63 (88) 93 06/19/19 05:50 2.0 06/19/19 05:31 75 18 100 35 06/19/19 05:00 75 19 131/61 (84) 97 06/19/19 04:00 35 06/19/19 04:00 Bi-pap 2.0 06/19/19 04:00 97.5 83 22 138/65 (89) 99 06/19/19 03:10 83 06/19/19 03:00 81 21 137/46 (76) 98 06/19/19 02:35 86 22 100 35 06/19/19 02:00 86 23 132/45 (74) 99 06/19/19 01:00 87 27 109/48 (68) 99 06/19/19 00:50 84 25 100 35 06/19/19 00:00 98.2 84 21 117/55 (75) 100 06/19/19 00:00 35 06/19/19 00:00 Bi-pap 2.0 06/18/19 23:10 95 18 100 35 06/18/19 23:10 35 06/18/19 23:02 87 06/18/19 23:00 89 24 126/55 (78) 100 06/18/19 22:00 95 26 138/52 (80) 96 06/18/19 21:00 87 21 114/55 (74) 95 06/18/19 20:00 89 06/18/19 20:00 Nasal Cannula 2.0 06/18/19 20:00 98.4 84 26 132/57 (82) 98 06/18/19 20:00 2.0 06/18/19 19:53 96 Nasal Cannula 4.0 36 06/18/19 19:53 106 23 96 Nasal Cannula 4.0 36 06/18/19 19:00 85 28 131/59 (83) 97 06/18/19 18:00 92 24 137/62 (87) 92 06/18/19 17:00 85 26 128/50 (76) 98 06/18/19 16:00 86 06/18/19 16:00 3.0 06/18/19 16:00 Venturi Mask 06/18/19 16:00 98.8 91 24 119/48 (71) 97 06/18/19 15:00 98 32 129/117 (121) 91 06/18/19 14:00 91 27 125/47 (73) 96 06/18/19 13:00 98.2 103 26 126/51 (76) 91 06/18/19 12:00 3.0 06/18/19 12:00 Venturi Mask 06/18/19 12:00 92 24 122/61 (81) 95 06/18/19 12:00 103 06/18/19 11:00 93 23 106/59 (75) 93 06/18/19 10:00 95 21 106/51 (69) 97 Intake and Output 06/18/19 06/19/19 19:00 07:00 Intake Total 1735.45 ml 2174.03 ml Output Total 690 ml 1480 ml Balance 1045.45 ml 694.03 ml Intake Oral 300 ml 200 ml IV Total 1435.45 ml 1974.03 ml Output Urine Total 690 ml 1480 ml # Bowel Movements 1 Laboratory Tests 06/18/19 10:30: Activated Partial Thromboplast Time 29 06/18/19 18:13: Activated Partial Thromboplast Time 35H, Troponin I 1.907H 06/19/19 01:00: Activated Partial Thromboplast Time 43H 06/19/19 04:15: White Blood Count 18.5H, Red Blood Count 3.57L, Hemoglobin 10.3L, Hematocrit 30.6L, Mean Corpuscular Volume 86, Mean Corpuscular Hemoglobin 28.8, Mean Corpuscular Hemoglobin Concent 33.6, Red Cell Distribution Width 12.5, Platelet Count 48L, Mean Platelet Volume 11.0H, Neutrophils (%) (Auto) , Lymphocytes (%) (Auto) , Monocytes (%) (Auto) , Eosinophils (%) (Auto) , Basophils (%) (Auto) , Neutrophils % (Manual) [Pending], Lymphocytes % (Manual) [Pending], Platelet Estimate [Pending], Platelet Morphology [Pending], Sodium Level 140, Potassium Level 3.9, Chloride Level 109H, Carbon Dioxide Level 20L, Anion Gap 11, Blood Urea Nitrogen 63H, Creatinine 2.6H, Estimat Glomerular Filtration Rate 24.3, Glucose Level 128H, Calcium Level 7.8L, Total Bilirubin 0.5, Aspartate Amino Transf (AST/SGOT) 68H, Alanine Aminotransferase (ALT/SGPT) 83H, Alkaline Phosphatase 90, Total Protein 5.0L, Albumin 1.7L, Globulin 3.3, Albumin/ Globulin Ratio 0.5L, Amylase Level 91, Lipase 555H 06/19/19 08:30: Activated Partial Thromboplast Time [Pending], Troponin I [Pending], HIV (1&2) Antibody Rapid [Pending] Height (Feet): 5 Height (Inches): 7.00 Weight (Pounds): 242 General Appearance: alert EENT: normal ENT inspection Neck: supple Cardiovascular: normal rate Respiratory/Chest: decreased breath sounds Abdomen: normal bowel sounds, non tender, soft Extremities: non-tender Peyman Akbar MD Jun 19, 2019 09:23
[2019-06-19] MEDS: Pantoprazole Inj IVP SCH (09:41)
[2019-06-19] MEDS: Aspirin Baby 81mg NG SCH ×2 (09:42→09:44)
--- NOTE | 2019-06-19 10:29 | NUR ---
NURSE NOTES: Dr Ortega here to see the patient. Notified him that Troponin is trending down and Platelet is lower today. Order to discontinue Heparin drip received, noted, and carried out. Addendum: 06/19/19 at 1043 by HARRY RYAN RN RN NURSE NOTES: Dr Ortega here to see the patient. Notified him that Troponin is trending down and Platelet is lower today. Order to discontinue Heparin drip received, noted, and carried out. Heparin drip was discontinued under RT's name. Spoke with PharmacistHarmeet about that.
--- NOTE | 2019-06-19 10:30 | NUR ---
NURSE NOTES: Cleaned pt for 1 moderate soft incontinent brown BM. Pt helps turning. After cleaning, pt became tachypneic and short of breath. Wheezing noted. Bi-pap placed by RT 15/5, 30%. Breathing treatment given by RT.
[2019-06-19] MEDS: Ipratropium 0.02% Inh Soln 2.5ml UD HHN PRN (10:31)
--- NOTE | 2019-06-19 12:06 | Diagnostic Imaging Report ---
Indication: Bilateral leg edema. Shortness of breath Technique: Grayscale and duplex images of the bilateral lower extremity veins Comparison: None Findings: Bilaterally, grayscale and duplex images demonstrate no evidence of intraluminal thrombus. Normal phasic Doppler waveforms, demonstrating normal augmentation response and no evidence of valvular insufficiency. Greater saphenous vein(s) and tibial veins are patent. Normal compressibility. Impression: Negative for evidence of lower extremity deep venous thrombosis bilaterally
--- NOTE | 2019-06-19 13:00 | NUR ---
NURSE NOTES: Pt had another small brown loose BM. Cleaned and repositioned pt. Pt is on high badillo's position. Pt is on bi-pap with the setting 15/5, 35%. O2 sat 100%. at bedside.
--- NOTE | 2019-06-19 13:17 | General Progress Note ---
Assessment/Plan Status: stable Assessment/Plan: 73 year old man with HTN, IDDM, ? history of CVA who presented to [facility] ED with nausea,vomiting. #septic shock, POA, possible biliary source -cont ICU level of care -cont IV hydration -cont Broad spectrum antibiotics -ID following #acute hypoxic resp failure without hypercarbia -intermittent BiPAP -continue inhaled bronchodilators -repeat CXR today -Pulm/CCM following #NSTEMI, peak trop of 2, likely due to demand ischemia -Stop heparin due to thrombocytopenia -Cardiology following #acute kidney injury on CKD, possible ATN -IV hydration -Nephrology following -monitor BMP -avoid nephrotoxic meds #acute pancreatitis -NPO -IV hydration -GI following #Thrombocytopenia, no active bleeding noted -stop heparin -cont to monitor daily CBC -Hematology consult #Hypokalemia, hypomagnesemia -replace and monitor labs #lactic acidosis #HTN -cont to hold BP meds #DM type 2 -ISS VTE PPx Heparin Full Code .I spent 75 minutes on this patient's case, and 37 mins was dedicated to critical care Critical Care Services performed include: Telemetry Review Hemodynamic measurement interpretation Laboratory data review and interpretation Radiology image review and interpretation Interpretation of ABG's Discussion of patient's care with ICU team, ICU Nursing staff and/or cons Subjective Date patient seen: Jun 19, 2019 Time patient seen: 07:43 ROS Limited/Unobtainable: Yes Constitutional: Denies: fever Cardiovascular: Denies: chest pain Respiratory: Denies: cough Gastrointestinal/Abdominal: Denies: abdomen distended, abdominal pain Allergies: Coded Allergies: No Known Allergies (Unverified , 06/02/19) Subjective Follow up for septic shock, acute hypoxic resp failure, ZARINA, acute metabolic encephalopathy Overnight had to be placed back on BiPAP due to hypoxia and labored breathing. Remains in ICU on BiPAP Objective Last 24 Hour Vital Signs Date Time Temp Pulse Resp B/P (MAP) Pulse Ox O2 Delivery O2 Flow Rate FiO2 06/19/19 13:10 128 36 98 35 06/19/19 12:00 103 06/19/19 11:00 118 33 162/82 (108) 92 06/19/19 10:36 120 40 96 35 06/19/19 10:29 35 06/19/19 10:00 107 28 116/43 (67) 95 06/19/19 09:00 87 23 116/43 (67) 95 06/19/19 08:00 92 06/19/19 08:00 Nasal Cannula 2.0 06/19/19 08:00 2.0 06/19/19 08:00 97.7 86 27 157/73 (101) 94 06/19/19 07:00 97 Nasal Cannula 4.0 36 06/19/19 07:00 82 25 140/74 (96) 94 06/19/19 07:00 101 20 97 Nasal Cannula 4.0 36 06/19/19 06:00 78 15 140/63 (88) 93 06/19/19 05:50 2.0 06/19/19 05:31 75 18 100 35 06/19/19 05:00 75 19 131/61 (84) 97 06/19/19 04:00 35 06/19/19 04:00 Bi-pap 2.0 06/19/19 04:00 97.5 83 22 138/65 (89) 99 06/19/19 03:10 83 06/19/19 03:00 81 21 137/46 (76) 98 06/19/19 02:35 86 22 100 35 06/19/19 02:00 86 23 132/45 (74) 99 06/19/19 01:00 87 27 109/48 (68) 99 06/19/19 00:50 84 25 100 35 06/19/19 00:00 98.2 84 21 117/55 (75) 100 06/19/19 00:00 35 06/19/19 00:00 Bi-pap 2.0 06/18/19 23:10 95 18 100 35 06/18/19 23:10 35 06/18/19 23:02 87 06/18/19 23:00 89 24 126/55 (78) 100 06/18/19 22:00 95 26 138/52 (80) 96 06/18/19 21:00 87 21 114/55 (74) 95 06/18/19 20:00 89 06/18/19 20:00 Nasal Cannula 2.0 06/18/19 20:00 98.4 84 26 132/57 (82) 98 06/18/19 20:00 2.0 06/18/19 19:53 96 Nasal Cannula 4.0 36 06/18/19 19:53 106 23 96 Nasal Cannula 4.0 36 06/18/19 19:00 85 28 131/59 (83) 97 06/18/19 18:00 92 24 137/62 (87) 92 06/18/19 17:00 85 26 128/50 (76) 98 06/18/19 16:00 86 06/18/19 16:00 3.0 06/18/19 16:00 Venturi Mask 06/18/19 16:00 98.8 91 24 119/48 (71) 97 06/18/19 15:00 98 32 129/117 (121) 91 06/18/19 14:00 91 27 125/47 (73) 96 Intake and Output 06/18/19 06/19/19 19:00 07:00 Intake Total 1735.45 ml 2174.03 ml Output Total 690 ml 1480 ml Balance 1045.45 ml 694.03 ml Intake Oral 300 ml 200 ml IV Total 1435.45 ml 1974.03 ml Output Urine Total 690 ml 1480 ml # Bowel Movements 1 Laboratory Tests 06/18/19 18:13: Activated Partial Thromboplast Time 35H, Troponin I 1.907H 06/19/19 01:00: Activated Partial Thromboplast Time 43H 06/19/19 04:15: White Blood Count 18.5H, Red Blood Count 3.57L, Hemoglobin 10.3L, Hematocrit 30.6L, Mean Corpuscular Volume 86, Mean Corpuscular Hemoglobin 28.8, Mean Corpuscular Hemoglobin Concent 33.6, Red Cell Distribution Width 12.5, Platelet Count 48L, Mean Platelet Volume 11.0H, Neutrophils (%) (Auto) , Lymphocytes (%) (Auto) , Monocytes (%) (Auto) , Eosinophils (%) (Auto) , Basophils (%) (Auto) , Differential Total Cells Counted 100, Neutrophils % (Manual) 85H, Lymphocytes % (Manual) 5L, Monocytes % (Manual) 2, Eosinophils % (Manual) 0, Basophils % ( Manual) 0, Band Neutrophils 8, Platelet Estimate DecreasedL, Platelet Morphology Normal, Red Blood Cell Morphology Normal, Sodium Level 140, Potassium Level 3.9, Chloride Level 109H, Carbon Dioxide Level 20L, Anion Gap 11 , Blood Urea Nitrogen 63H, Creatinine 2.6H, Estimat Glomerular Filtration Rate 24.3, Glucose Level 128H, Calcium Level 7.8L, Total Bilirubin 0.5, Aspartate Amino Transf (AST/SGOT) 68H, Alanine Aminotransferase (ALT/SGPT) 83H, Alkaline Phosphatase 90, Total Protein 5.0L, Albumin 1.7L, Globulin 3.3, Albumin/ Globulin Ratio 0.5L, Amylase Level 91, Lipase 555H 06/19/19 08:30: Activated Partial Thromboplast Time 51H, Troponin I 1.496H, HIV (1&2) Antibody Rapid Negative 06/19/19 10:20: Stool Occult Blood [Pending] Height (Feet): 5 Height (Inches): 7.00 Weight (Pounds): 242 General Appearance: no apparent distress, alert Neck: supple Cardiovascular: normal rate, regular rhythm Respiratory/Chest: lungs clear, normal breath sounds Abdomen: non tender, soft Harinder Ochoa MD Jun 19, 2019 13:17
--- NOTE | 2019-06-19 13:23 | NUR ---
PT NOTE Received MD order for PT evaluation. Marry Villa requested to defer PT evaluation as patient is agitated, on Bipap and tachycardic. Will follow up tomorrow.
--- NOTE | 2019-06-19 14:25 | Pulmonolgy Critical Care Note ---
Critical Care - Asmt/Plan Problems: (1) Sepsis (2) Hypoxia (3) Renal failure (4) Acute pancreatitis (5) Acute kidney injury superimposed on CKD (6) Left upper quadrant abdominal mass (7) Elevated troponin (8) Smoker (9) Thrombocytopenia Assessment/Plan: STAT ABG STAT CXR Duplex neg, F/U D-dimer D/C IVF, give lasix 20 IV x 1 BiPAP qHS and PRN Titrate FiO2 HHN's Monitor volumes and renal function ABx (Flagyl/Doxy/Ctx) per ID, F/U Cx's F/U cards recs, IVUH, ? ischemia eval once acute issues resolve F/U GI recs, F/U CA-19-9 IVUH held, monitor platelets, F/U HIT Ab panel Cautious PO only when off BiPAP with STRICT ASPIRATION precautions In the future should have a CT chest (screening) when acute issues resolve DVT Px: SCD's FC Keep in ICU CCT 45 Critical Care - Objective Last 24 Hour Vital Signs Date Time Temp Pulse Resp B/P (MAP) Pulse Ox O2 Delivery O2 Flow Rate FiO2 06/19/19 14:00 121 20 94/78 (83) 94 06/19/19 13:10 128 36 98 35 06/19/19 13:00 126 30 104/63 (77) 94 06/19/19 12:00 103 06/19/19 12:00 Bi-pap 06/19/19 12:00 97.8 118 34 137/72 (93) 92 06/19/19 11:00 118 33 162/82 (108) 92 06/19/19 10:36 120 40 96 35 06/19/19 10:29 35 06/19/19 10:00 107 28 116/43 (67) 95 06/19/19 09:00 87 23 116/43 (67) 95 06/19/19 08:00 92 06/19/19 08:00 Nasal Cannula 2.0 06/19/19 08:00 2.0 06/19/19 08:00 97.7 86 27 157/73 (101) 94 06/19/19 07:00 97 Nasal Cannula 4.0 36 06/19/19 07:00 82 25 140/74 (96) 94 06/19/19 07:00 101 20 97 Nasal Cannula 4.0 36 06/19/19 06:00 78 15 140/63 (88) 93 06/19/19 05:50 2.0 06/19/19 05:31 75 18 100 35 06/19/19 05:00 75 19 131/61 (84) 97 06/19/19 04:00 35 06/19/19 04:00 Bi-pap 2.0 06/19/19 04:00 97.5 83 22 138/65 (89) 99 06/19/19 03:10 83 06/19/19 03:00 81 21 137/46 (76) 98 06/19/19 02:35 86 22 100 35 06/19/19 02:00 86 23 132/45 (74) 99 06/19/19 01:00 87 27 109/48 (68) 99 06/19/19 00:50 84 25 100 35 06/19/19 00:00 98.2 84 21 117/55 (75) 100 06/19/19 00:00 35 06/19/19 00:00 Bi-pap 2.0 06/18/19 23:10 95 18 100 35 06/18/19 23:10 35 06/18/19 23:02 87 06/18/19 23:00 89 24 126/55 (78) 100 06/18/19 22:00 95 26 138/52 (80) 96 06/18/19 21:00 87 21 114/55 (74) 95 06/18/19 20:00 89 06/18/19 20:00 Nasal Cannula 2.0 06/18/19 20:00 98.4 84 26 132/57 (82) 98 06/18/19 20:00 2.0 06/18/19 19:53 96 Nasal Cannula 4.0 36 06/18/19 19:53 106 23 96 Nasal Cannula 4.0 36 06/18/19 19:00 85 28 131/59 (83) 97 06/18/19 18:00 92 24 137/62 (87) 92 06/18/19 17:00 85 26 128/50 (76) 98 06/18/19 16:00 86 06/18/19 16:00 3.0 06/18/19 16:00 Venturi Mask 06/18/19 16:00 98.8 91 24 119/48 (71) 97 06/18/19 15:00 98 32 129/117 (121) 91 Status: other - awake on bipap with inc WOB Condition: critical HEENT: atraumatic, normocephalic Neck: full ROM Lungs: rales Heart: HR/BP stable Abdomen: soft, non-tender, active bowel sounds Extremities: no C/C/E Micro: Microbiology Date/Time Source Procedure Growth Status 06/17/19 04:50 Blood Blood Culture - Preliminary NO GROWTH AFTER 24 HOURS Resulted 06/17/19 04:45 Blood Blood Culture - Preliminary NO GROWTH AFTER 24 HOURS Resulted 06/17/19 10:00 Sputum Induced Gram Stain - Final Complete 06/17/19 10:00 Sputum Induced Sputum Culture - Final NO GROWTH AFTER 48 HOURS Complete Accucheck: 190 Blood Sugars: BS controlled Critical Care - Subjective ROS Limited/Unobtainable: Yes ICU Day: 5 Interval Events: Unresponsive earlier placed on BiPAP now more alert IVUH stopped for thrombocytopenia Condition: critical IV Access: PICC EKG Rhythm: Sinus Tachycardia FI02: 35 Vent Support Breath Rate: 14 Vent Support Mode: BiLevel Sputum Amount: None Secretions: None Fluids: D5LR@100 Drips: N/A I&O: Intake and Output 06/18/19 06/19/19 19:00 07:00 Intake Total 1735.45 ml 2174.03 ml Output Total 690 ml 1480 ml Balance 1045.45 ml 694.03 ml Intake Oral 300 ml 200 ml IV Total 1435.45 ml 1974.03 ml Output Urine Total 690 ml 1480 ml # Bowel Movements 1 Subjective: No F/C/CP/SOB/coughh Labs: Laboratory Tests Test 06/18/19 18:13 06/19/19 01:00 06/19/19 04:15 06/19/19 08:30 Activated Partial Thromboplast Time 35 SEC (23-33) H 43 SEC (23-33) H 51 SEC (23-33) H Troponin I 1.907 ng/mL (0.000-0.056) 1.496 ng/mL (0.000-0.056) White Blood Count 18.5 K/UL (4.8-10.8) H Red Blood Count 3.57 M/UL (4.70-6.10) L Hemoglobin 10.3 G/DL (14.2-18.0) L Hematocrit 30.6 % (42.0-52.0) L Mean Corpuscular Volume 86 FL (80-99) Mean Corpuscular Hemoglobin 28.8 PG (27.0-31.0) Mean Corpuscular Hemoglobin Concent 33.6 G/DL (32.0-36.0) Red Cell Distribution Width 12.5 % (11.6-14.8) Platelet Count 48 K/UL (150-450) L Mean Platelet Volume 11.0 FL (6.5-10.1) H Neutrophils (%) (Auto) % (45.0-75.0) Lymphocytes (%) (Auto) % (20.0-45.0) Monocytes (%) (Auto) % (1.0-10.0) Eosinophils (%) (Auto) % (0.0-3.0) Basophils (%) (Auto) % (0.0-2.0) Differential Total Cells Counted 100 Neutrophils % (Manual) 85 % (45-75) H Lymphocytes % (Manual) 5 % (20-45) L Monocytes % (Manual) 2 % (1-10) Eosinophils % (Manual) 0 % (0-3) Basophils % (Manual) 0 % (0-2) Band Neutrophils 8 % (0-8) Platelet Estimate Decreased L Platelet Morphology Normal Red Blood Cell Morphology Normal Sodium Level 140 MMOL/L (136-145) Potassium Level 3.9 MMOL/L (3.5-5.1) Chloride Level 109 MMOL/L (98-107) H Carbon Dioxide Level 20 MMOL/L (21-32) L Anion Gap 11 mmol/L (5-15) Blood Urea Nitrogen 63 mg/dL (7-18) H Creatinine 2.6 MG/DL (0.55-1.30) H Estimat Glomerular Filtration Rate 24.3 mL/min (>60) Glucose Level 128 MG/DL (74-106) H Calcium Level 7.8 MG/DL (8.5-10.1) L Total Bilirubin 0.5 MG/DL (0.2-1.0) Aspartate Amino Transf (AST/SGOT) 68 U/L (15-37) H Alanine Aminotransferase (ALT/SGPT) 83 U/L (12-78) H Alkaline Phosphatase 90 U/L (46-116) Total Protein 5.0 G/DL (6.4-8.2) L Albumin 1.7 G/DL (3.4-5.0) L Globulin 3.3 g/dL Albumin/Globulin Ratio 0.5 (1.0-2.7) L Amylase Level 91 U/L (25-115) Lipase 555 U/L (73-393) H HIV (1&2) Antibody Rapid Negative (NEGATIVE) Test 06/19/19 10:20 Stool Occult Blood Pending Homero Moran MD Jun 19, 2019 14:25
--- NOTE | 2019-06-19 14:30 | NUR ---
NURSE NOTES: Dr Moran here to see the patient. Updated him with pt's current condition. Also notified him that he had episodes of tachypnea and SOB and is on Bi-pap. STAT ABG ordered and drawn. Notified him regarding the result. Bi-pap setting adjusted as ordered.
--- NOTE | 2019-06-19 15:55 | Consultation ---
History of Present Illness General Chief Complaint: Generalized Weakness Referring physician: LEILA LOVETT Reason for Consultation: DIARRHEA Present Illness Allergies: Coded Allergies: No Known Allergies (Unverified , 06/02/19) Medication History Scheduled Acarbose* (Precose*), 50 MG ORAL THREE TIMES A DAY, (Reported) Amlodipine Besylate* (Amlodipine Besylate*), 10 MG ORAL DAILY, (Reported) Clonidine Hcl* (Catapres*), 0.2 MG ORAL Q6HR, (Reported) Clopidogrel* (Clopidogrel*), 75 MG ORAL DAILY, (Reported) Folic Acid* (Folic Acid*), 1 MG ORAL DAILY, (Reported) Insulin Glargine (Lantus), 0 SUBQ BEDTIME, (Reported) Lisinopril (Lisinopril*), 40 MG ORAL DAILY, (Reported) Metformin Hcl* (Metformin Hcl*), 500 MG ORAL TWICE A DAY, (Reported) Simvastatin (Zocor), 5 MG ORAL BEDTIME, (Reported) Miscellaneous Medications Aspirin (Court Chewable), 81 MG PO, (Reported) Patient History Healthcare decision maker Resuscitation status Full Code Advanced Directive on File Physical Exam Last 24 Hour Vital Signs Date Time Temp Pulse Resp B/P (MAP) Pulse Ox O2 Delivery O2 Flow Rate FiO2 06/19/19 15:00 128 36 98 35 06/19/19 15:00 115 26 114/69 (84) 97 06/19/19 15:00 121 20 94/78 (83) 94 06/19/19 14:30 35 06/19/19 14:00 121 20 94/78 (83) 94 06/19/19 13:10 128 36 98 35 06/19/19 13:00 126 30 104/63 (77) 94 06/19/19 12:00 103 06/19/19 12:00 Bi-pap 06/19/19 12:00 97.8 118 34 137/72 (93) 92 06/19/19 11:00 118 33 162/82 (108) 92 06/19/19 10:36 120 40 96 35 06/19/19 10:29 35 06/19/19 10:00 107 28 116/43 (67) 95 06/19/19 09:00 87 23 116/43 (67) 95 06/19/19 08:00 92 06/19/19 08:00 Nasal Cannula 2.0 06/19/19 08:00 2.0 06/19/19 08:00 97.7 86 27 157/73 (101) 94 06/19/19 07:00 97 Nasal Cannula 4.0 36 06/19/19 07:00 82 25 140/74 (96) 94 06/19/19 07:00 101 20 97 Nasal Cannula 4.0 36 06/19/19 06:00 78 15 140/63 (88) 93 06/19/19 05:50 2.0 06/19/19 05:31 75 18 100 35 06/19/19 05:00 75 19 131/61 (84) 97 06/19/19 04:00 35 06/19/19 04:00 Bi-pap 2.0 06/19/19 04:00 97.5 83 22 138/65 (89) 99 06/19/19 03:10 83 06/19/19 03:00 81 21 137/46 (76) 98 06/19/19 02:35 86 22 100 35 06/19/19 02:00 86 23 132/45 (74) 99 06/19/19 01:00 87 27 109/48 (68) 99 06/19/19 00:50 84 25 100 35 06/19/19 00:00 98.2 84 21 117/55 (75) 100 06/19/19 00:00 35 06/19/19 00:00 Bi-pap 2.0 06/18/19 23:10 95 18 100 35 06/18/19 23:10 35 06/18/19 23:02 87 06/18/19 23:00 89 24 126/55 (78) 100 06/18/19 22:00 95 26 138/52 (80) 96 06/18/19 21:00 87 21 114/55 (74) 95 06/18/19 20:00 89 06/18/19 20:00 Nasal Cannula 2.0 06/18/19 20:00 98.4 84 26 132/57 (82) 98 06/18/19 20:00 2.0 06/18/19 19:53 96 Nasal Cannula 4.0 36 06/18/19 19:53 106 23 96 Nasal Cannula 4.0 36 06/18/19 19:00 85 28 131/59 (83) 97 06/18/19 18:00 92 24 137/62 (87) 92 06/18/19 17:00 85 26 128/50 (76) 98 06/18/19 16:00 86 06/18/19 16:00 3.0 06/18/19 16:00 Venturi Mask 06/18/19 16:00 98.8 91 24 119/48 (71) 97 Intake and Output 06/18/19 06/19/19 19:00 07:00 Intake Total 1735.45 ml 2174.03 ml Output Total 690 ml 1480 ml Balance 1045.45 ml 694.03 ml Intake Oral 300 ml 200 ml IV Total 1435.45 ml 1974.03 ml Output Urine Total 690 ml 1480 ml # Bowel Movements 1 Laboratory Tests Test 06/18/19 18:13 06/19/19 01:00 06/19/19 04:15 06/19/19 08:30 Activated Partial Thromboplast Time 35 SEC (23-33) H 43 SEC (23-33) H 51 SEC (23-33) H Troponin I 1.907 ng/mL (0.000-0.056) 1.496 ng/mL (0.000-0.056) White Blood Count 18.5 K/UL (4.8-10.8) H Red Blood Count 3.57 M/UL (4.70-6.10) L Hemoglobin 10.3 G/DL (14.2-18.0) L Hematocrit 30.6 % (42.0-52.0) L Mean Corpuscular Volume 86 FL (80-99) Mean Corpuscular Hemoglobin 28.8 PG (27.0-31.0) Mean Corpuscular Hemoglobin Concent 33.6 G/DL (32.0-36.0) Red Cell Distribution Width 12.5 % (11.6-14.8) Platelet Count 48 K/UL (150-450) L Mean Platelet Volume 11.0 FL (6.5-10.1) H Neutrophils (%) (Auto) % (45.0-75.0) Lymphocytes (%) (Auto) % (20.0-45.0) Monocytes (%) (Auto) % (1.0-10.0) Eosinophils (%) (Auto) % (0.0-3.0) Basophils (%) (Auto) % (0.0-2.0) Differential Total Cells Counted 100 Neutrophils % (Manual) 85 % (45-75) H Lymphocytes % (Manual) 5 % (20-45) L Monocytes % (Manual) 2 % (1-10) Eosinophils % (Manual) 0 % (0-3) Basophils % (Manual) 0 % (0-2) Band Neutrophils 8 % (0-8) Platelet Estimate Decreased L Platelet Morphology Normal Red Blood Cell Morphology Normal Sodium Level 140 MMOL/L (136-145) Potassium Level 3.9 MMOL/L (3.5-5.1) Chloride Level 109 MMOL/L (98-107) H Carbon Dioxide Level 20 MMOL/L (21-32) L Anion Gap 11 mmol/L (5-15) Blood Urea Nitrogen 63 mg/dL (7-18) H Creatinine 2.6 MG/DL (0.55-1.30) H Estimat Glomerular Filtration Rate 24.3 mL/min (>60) Glucose Level 128 MG/DL (74-106) H Calcium Level 7.8 MG/DL (8.5-10.1) L Total Bilirubin 0.5 MG/DL (0.2-1.0) Aspartate Amino Transf (AST/SGOT) 68 U/L (15-37) H Alanine Aminotransferase (ALT/SGPT) 83 U/L (12-78) H Alkaline Phosphatase 90 U/L (46-116) Total Protein 5.0 G/DL (6.4-8.2) L Albumin 1.7 G/DL (3.4-5.0) L Globulin 3.3 g/dL Albumin/Globulin Ratio 0.5 (1.0-2.7) L Amylase Level 91 U/L (25-115) Lipase 555 U/L (73-393) H HIV (1&2) Antibody Rapid Negative (NEGATIVE) Test 06/19/19 10:20 06/19/19 14:19 06/19/19 15:05 Stool Occult Blood Pending Arterial Blood pH 7.298 (7.350-7.450) Arterial Blood Partial Pressure CO2 28.4 mmHg (35.0-45.0) L Arterial Blood Partial Pressure O2 71.2 mmHg (75.0-100.0) L Arterial Blood HCO3 13.6 mmol/L (22.0-26.0) *L Arterial Blood Oxygen Saturation 92.7 % (95-100) L Arterial Blood Base Excess -11.3 (-2-2) *L Saul Test Positive D-Dimer Pending Heparin-PF4 Antibody Screen Pending Microbiology Date/Time Source Procedure Growth Status 06/19/19 10:20 Stool Received Height (Feet): 5 Height (Inches): 7.00 Weight (Pounds): 242 Medications Current Medications Medications (Trade) Dose Ordered Sig/Arley Route PRN Reason Start Time Stop Time Status Last Admin Dose Admin Acetaminophen (Tylenol) 650 mg Q4H PRN ORAL Mild Pain (Pain Scale 1-3) 06/15/19 22:45 07/15/19 22:44 Albumin Human 50 ml @ 50 mls/hr DAILY PRN IV For hypotension 06/17/19 00:00 07/17/19 00:00 Aspirin (ASA) 81 mg DAILY NG 06/16/19 09:00 07/16/19 08:59 06/18/19 09:03 Bisacodyl (Dulcolax) 10 mg DAILYPRN PRN RECTAL Constipation 06/15/19 22:45 07/15/19 22:44 Ceftriaxone Sodium 1 gm/ Dextrose 50 ml @ 100 mls/hr Q24H IVPB 06/18/19 17:00 06/25/19 16:59 06/18/19 18:05 Chlorhexidine Gluconate (Mena-Hex 2%) 1 applic DAILY@2000 TOPIC 06/16/19 20:00 07/16/19 19:59 06/18/19 20:04 Dextrose (Dextrose 50%) 25 ml Q30M PRN IV Hypoglycemia 06/16/19 01:00 07/16/19 00:59 Dextrose (Dextrose 50%) 50 ml Q30M PRN IV Hypoglycemia 06/16/19 01:00 07/16/19 00:59 Docusate Sodium (Colace) 100 mg EVERY 12 HOURS ORAL 06/16/19 09:00 07/16/19 08:59 06/18/19 21:16 Doxycycline Hyclate 100 mg/ Dextrose 100 ml @ 100 mls/hr Q12HR IVPB 06/18/19 21:00 06/25/19 20:59 06/19/19 09:41 Furosemide (Lasix) 20 mg ONCE IV 06/19/19 14:30 06/19/19 16:00 06/19/19 15:16 Hydromorphone HCl (Dilaudid) 0.5 mg Q4H PRN IVP Moderate Pain (Pain Scale 4-6) 06/16/19 04:32 06/23/19 04:31 06/16/19 12:17 Insulin Aspart (NovoLOG) Q6HR SUBQ 06/16/19 06:00 07/16/19 05:59 06/19/19 12:08 Ipratropium [place] (Atrovent) 500 mcg Q4H PRN HHN Shortness of Breath 06/16/19 16:15 06/21/19 16:14 06/19/19 10:31 Magnesium Hydroxide (Mom) 30 ml HSPRN PRN ORAL Constipation 06/15/19 22:45 07/15/19 22:44 Metronidazole 100 ml @ 100 mls/hr Q8HR IVPB 06/18/19 22:00 06/25/19 21:59 06/19/19 14:08 Ondansetron HCl (Zofran) 4 mg Q6H PRN IVP Nausea & Vomiting 06/15/19 22:45 07/15/19 22:44 Pantoprazole (Protonix) 40 mg DAILY IVP 06/16/19 09:00 07/16/19 08:59 06/19/19 09:41 Phenylephrine HCl 50 mg/Dextrose 250 ml @ 0 mls/hr Q24H IV 06/16/19 08:30 07/16/19 08:29 Assessment/Plan Assessment/Plan: Hematology Consultation REQ : Heather Iglesias Reason for Hospitalization: Generalized Weakness RFC: Low platelets, anemia DOS: 06/19/19 HPI 73 year old male with past medical history significant for insulin dependent DM , hypertension, possible CVA on plavix brought by EMS with chief nausea vomiting and diarrhea for the last few days. Paramedics found him with blood pressure of 86 in the field. They gave him of 250 fluid bolus and his blood pressure opal to 125 systolic. His glucose was also 124. The diarrhea has been brown without any blood. He is never had this problem before.The patient smokes. He has heard himself wheezing. He denies productive cough. patient seen and examined in the ICU. he is currently on bipap. Further history limited due to clinical condition. Information obtained from chart review. Was on a heparin gtt, and in the am today, d/c and started on scds is due to low platelets. Social Hx: Current smoker Allergies: Coded Allergies: No Known Allergies (Unverified , 06/02/19) Medication History Scheduled Acarbose* (Precose*), 50 MG ORAL THREE TIMES A DAY, (Reported) Amlodipine Besylate* (Amlodipine Besylate*), 10 MG ORAL DAILY, (Reported) Clonidine Hcl* (Catapres*), 0.2 MG ORAL Q6HR, (Reported) Clopidogrel* (Clopidogrel*), 75 MG ORAL DAILY, (Reported) Folic Acid* (Folic Acid*), 1 MG ORAL DAILY, (Reported) Insulin Glargine (Lantus), 0 SUBQ BEDTIME, (Reported) Lisinopril (Lisinopril*), 40 MG ORAL DAILY, (Reported) Metformin Hcl* (Metformin Hcl*), 500 MG ORAL TWICE A DAY, (Reported) Simvastatin (Zocor), 5 MG ORAL BEDTIME, (Reported) Miscellaneous Medications Aspirin (Court Chewable), 81 MG PO, (Reported) Patient History Limited by: medical condition History Provided By: Medical Record Healthcare decision maker Resuscitation status Full Code Advanced Directive on File Review of Systems ROS Narrative Unable to obtain due to confusion and overall medical condition Pe General Appearance: no apparent distress, alert HEENT: atraumatic, anicteric Neck: normal alignment, supple Respiratory/Chest: lungs clear, normal breath sounds, no respiratory distress Cardiovascular/Chest: normal rate, regular rhythm Abdomen: non tender, soft, no organomegaly Extremities: non-tender, normal inspection Skin Exam: warm/dry, cyanotic Neurologic: alert Labs: noted Imaging: reviewed Assessment and recs: # Thrombocytopenia - potential causes multifactorial, in this case due to sepsis , less likely due to heparin --> Hep panel and HIV are negative --> US abd to evaluate for cirrhosis and hsm ordered and none noted --> Peripheral smear ordered to evaluate for blasts /schistocytes --> abx and other meds have been reviewed --> ok for ppx if plt >50k w/ either heparin or lovenox --> Transfuse if Plt < 20k and fever, or if Plt < 10k without fever # 10.7 cm unilocular cystic structure in the left upper quadrant retroperitoneal , corresponding to findings reported on recent CT scan. Most likely represents a pancreatic pseudocyst. --> continue to monitor as per gi --> repeat us or ct in short order, weeks to months to re-eval # DM, ? history of CVA who presented to [facility] with nausea,vomiting. --> a1c goal <8, accuchecks qac/qhs # Septic shock, POA, possible biliary source --> cont ICU level of care --> cont IV hydration --> on abx, as per pulm/cc # Acute hypoxic resp failure without hypercarbia --> Intermittent BiPAP --> continue inhaled bronchodilators # NSTEMI, peak trop of 2, likely due to demand ischemia --> Stop heparin due to thrombocytopenia --> less likely is HIT syndrome --> duplex lower legs is neg # Acute kidney injury on CKD, possible ATN --> Nephrology following # Acute pancreatitis --> hydration # HTN --> cont to hold BP meds # DM type 2 --> ISS # Dvt ppx scds Appreciate consultation and dw Kana Ramey MD Jun 19, 2019 15:55
--- NOTE | 2019-06-19 16:33 | NUR ---
NURSE NOTES: Called and left a message to Dr Moran regarding elevated d-dimer level. Awaiting call back for new orders.
[2019-06-19] MEDS: cefTRIAXone 1 GM in D5W 50 ML IVPB SCH (17:09)
--- NOTE | 2019-06-19 17:28 | NUR ---
NURSE NOTES: Dr Moran called back. Order for STAT VQ scan received and noted. Will proceed the order.
--- NOTE | 2019-06-19 17:39 | NUR ---
NURSE NOTES: Spoke with radiology regarding STAT VQ scan order. They will call on-call nuclear med tech for the order. Awaiting call back.
--- NOTE | 2019-06-19 17:40 | NUR ---
NURSE NOTES: Placed N/C 2L on patient by RT. O2 sat 92-94%. Pt is still restless. RR 35. Will continue to monitor.
--- NOTE | 2019-06-19 17:43 | Nephrology Progress Note ---
Assessment/Plan Plan #acute kidney injury - on baseline CKD- Fena 0.4% suggestive of pre-renal aztemia- however UA with sediments and RBC concerning for developing ATN- patient with baseline diabetic nephropathy - improving #sepsis #acute pancreatitis # Hypokalemia, hypopmagnesemia #lactic acidosis- improved #HTN- stable #DM- #NSTEMI- on lovenox - DC IVF - monitor Cr - diuretics prn - GI eval - started on CLD - on doxy and ceftriaxone - heparin on hold for thrombocytopenia - cardiology eval - ischemia eval? - maintain contreras - monitor UOP closely - monitor bicarb level - trend lactate - improved - hold lisinopril - hold metformin - hold amlodipine - ISS Subjective Subjective Breathing stabkle BP stable Cr improving DC IVF mentating well plt dropping heparin stopped tolerating diet Objective Objective Last 24 Hour Vital Signs Date Time Temp Pulse Resp B/P (MAP) Pulse Ox O2 Delivery O2 Flow Rate FiO2 06/19/19 17:00 115 26 102/87 (92) 97 06/19/19 16:00 Bi-pap 06/19/19 16:00 98.0 109 27 91/59 (70) 98 06/19/19 15:29 112 06/19/19 15:00 128 36 98 35 06/19/19 15:00 115 26 114/69 (84) 97 06/19/19 15:00 121 20 94/78 (83) 94 06/19/19 14:30 35 06/19/19 14:00 121 20 94/78 (83) 94 06/19/19 13:10 128 36 98 35 06/19/19 13:00 126 30 104/63 (77) 94 06/19/19 12:00 103 06/19/19 12:00 Bi-pap 06/19/19 12:00 97.8 118 34 137/72 (93) 92 06/19/19 11:00 118 33 162/82 (108) 92 06/19/19 10:36 120 40 96 35 06/19/19 10:29 35 06/19/19 10:00 107 28 116/43 (67) 95 06/19/19 09:00 87 23 116/43 (67) 95 06/19/19 08:00 92 06/19/19 08:00 Nasal Cannula 2.0 06/19/19 08:00 2.0 06/19/19 08:00 97.7 86 27 157/73 (101) 94 06/19/19 07:00 97 Nasal Cannula 4.0 36 06/19/19 07:00 82 25 140/74 (96) 94 06/19/19 07:00 101 20 97 Nasal Cannula 4.0 36 06/19/19 06:00 78 15 140/63 (88) 93 06/19/19 05:50 2.0 06/19/19 05:31 75 18 100 35 06/19/19 05:00 75 19 131/61 (84) 97 06/19/19 04:00 35 06/19/19 04:00 Bi-pap 2.0 06/19/19 04:00 97.5 83 22 138/65 (89) 99 06/19/19 03:10 83 06/19/19 03:00 81 21 137/46 (76) 98 06/19/19 02:35 86 22 100 35 06/19/19 02:00 86 23 132/45 (74) 99 06/19/19 01:00 87 27 109/48 (68) 99 06/19/19 00:50 84 25 100 35 06/19/19 00:00 98.2 84 21 117/55 (75) 100 06/19/19 00:00 35 06/19/19 00:00 Bi-pap 2.0 06/18/19 23:10 95 18 100 35 06/18/19 23:10 35 06/18/19 23:02 87 06/18/19 23:00 89 24 126/55 (78) 100 06/18/19 22:00 95 26 138/52 (80) 96 06/18/19 21:00 87 21 114/55 (74) 95 06/18/19 20:00 89 06/18/19 20:00 Nasal Cannula 2.0 06/18/19 20:00 98.4 84 26 132/57 (82) 98 06/18/19 20:00 2.0 06/18/19 19:53 96 Nasal Cannula 4.0 36 06/18/19 19:53 106 23 96 Nasal Cannula 4.0 36 06/18/19 19:00 85 28 131/59 (83) 97 06/18/19 18:00 92 24 137/62 (87) 92 Intake and Output 2/26/20 2/27/20 19:00 07:00 Intake Total 1735.45 ml 2174.03 ml Output Total 690 ml 1480 ml Balance 1045.45 ml 694.03 ml Intake Oral 300 ml 200 ml IV Total 1435.45 ml 1974.03 ml Output Urine Total 690 ml 1480 ml # Bowel Movements 1 Laboratory Tests 06/18/19 18:13: Activated Partial Thromboplast Time 35H, Troponin I 1.907H 06/19/19 01:00: Activated Partial Thromboplast Time 43H 06/19/19 04:15: White Blood Count 18.5H, Red Blood Count 3.57L, Hemoglobin 10.3L, Hematocrit 30.6L, Mean Corpuscular Volume 86, Mean Corpuscular Hemoglobin 28.8, Mean Corpuscular Hemoglobin Concent 33.6, Red Cell Distribution Width 12.5, Platelet Count 48L, Mean Platelet Volume 11.0H, Neutrophils (%) (Auto) , Lymphocytes (%) (Auto) , Monocytes (%) (Auto) , Eosinophils (%) (Auto) , Basophils (%) (Auto) , Differential Total Cells Counted 100, Neutrophils % (Manual) 85H, Lymphocytes % (Manual) 5L, Monocytes % (Manual) 2, Eosinophils % (Manual) 0, Basophils % ( Manual) 0, Band Neutrophils 8, Platelet Estimate DecreasedL, Platelet Morphology Normal, Red Blood Cell Morphology Normal, Sodium Level 140, Potassium Level 3.9, Chloride Level 109H, Carbon Dioxide Level 20L, Anion Gap 11 , Blood Urea Nitrogen 63H, Creatinine 2.6H, Estimat Glomerular Filtration Rate 24.3, Glucose Level 128H, Calcium Level 7.8L, Total Bilirubin 0.5, Aspartate Amino Transf (AST/SGOT) 68H, Alanine Aminotransferase (ALT/SGPT) 83H, Alkaline Phosphatase 90, Total Protein 5.0L, Albumin 1.7L, Globulin 3.3, Albumin/ Globulin Ratio 0.5L, Amylase Level 91, Lipase 555H 06/19/19 08:30: Activated Partial Thromboplast Time 51H, Troponin I 1.496H, HIV (1&2) Antibody Rapid Negative 06/19/19 10:20: Stool Occult Blood [Pending] 06/19/19 14:19: Arterial Blood pH 7.298L, Arterial Blood Partial Pressure CO2 28.4L, Arterial Blood Partial Pressure O2 71.2L, Arterial Blood HCO3 13.6*L, Arterial Blood Oxygen Saturation 92.7L, Arterial Blood Base Excess -11.3*L, Saul Test Positive 06/19/19 15:05: D-Dimer 12.27H, Ferritin 502H, Heparin-PF4 Antibody Screen [Pending] Height (Feet): 5 Height (Inches): 7.00 Weight (Pounds): 242 Objective General Appearance: Alert - no distress Lines, tubes and drains: peripheral HEENT: normocephalic, atraumatic Neck: non-tender, normal alignment Respiratory/Chest: chest wall non-tender, lungs clear, normal breath sounds Cardiovascular/Chest: normal rate, regular rhythm Abdomen: normal bowel sounds, non tender, soft Extremities: non-tender, normal inspection Skin Exam: normal pigmentation, no diaphoresis Gerson Salgado M.D. Jun 19, 2019 17:43
--- NOTE | 2019-06-19 17:45 | NUR ---
NURSE NOTES: Roderick, the nuclear tech, called the unit. He stated that ordering and picking up Gallium for VQ scan will take 2-3 hours and that he will call us when he arrives [place].
--- NOTE | 2019-06-19 18:05 | NUR ---
NURSE NOTES: Dr Salgado here to see the patient. Order for Lasix received, noted, and carried out.
--- NOTE | 2019-06-19 18:30 | NUR ---
NURSE NOTES: Cleaned pt for another small amount of soft brown BM. Repositioned pt. Pt is tolerating N/C 2L. O2 sat 92-94%. and son at bedside.
--- NOTE | 2019-06-19 19:15 | NUR ---
CASE MANAGEMENT: REVIEW SI: NSTEMI . LEFT UPPER QUADRANT ABD MASS . SEPSIS . ACUTE PANCREATITIS VQ SCAN w/LUNG PERFUSION 06/19 T 97.8 HR 126 RR 34 BP 83/45 SAT 92% BIPAP FIO2 35 WBC 18.5 TROP 1.496 IS: PHENYLEPHRINE / D5W IV Q24HR LASIX 20MG IV X1 PROTONIX IV QD FULL LIQUID DIET ICU STATUS DCP: PATIENT IS FROM HOME
--- NOTE | 2019-06-19 19:47 | NUR ---
HAND-OFF: Report given to GANGA Doan.
--- NOTE | 2019-06-19 19:50 | NUR ---
NURSE NOTES: Received report from Olimpia SCHULER. patient in bed awake,alert able to verbalize needs to staff. denies any pain or discomfort. On Venturi mask at 40% satting 98%. HOB elevated. family at bedside. Left UPPER arm PICC line intact. Rievro draining. Instructed patient to use call light for assistance. bed alarm on. bed locked and in low position. will continue plan of care.
--- NOTE | 2019-06-19 20:30 | NUR ---
NURSE NOTES: Accompanied patient via gurney for VQ scan with operator technician. with portable oxygen, portable cardiac specialist and cardiac transport box. patient awake,alert on Venturi mask at 55% satting 98%. No s/s of acute distress noted. no s/s of hypo/hyperglycemia.
--- NOTE | 2019-06-19 21:20 | NUR ---
NURSE NOTES: Patient tolerated VQ scan will follow up result. accompanied patient back to his room. no acute distress noted.
--- NOTE | 2019-06-19 21:41 | NUR ---
NM Lung V/Q scan complete and sent to [facility] for preliminary results.
[2019-06-19] MEDS: Dyna-Hex 2% Top Sol 2oz TOPIC SCH (21:50)
--- NOTE | 2019-06-19 21:55 | Diagnostic Imaging Report ---
Indications: Shortness of breath, elevated d-dimer Technique: IV administration 5 mCi 99m technetium macroaggregated albumin. Images obtained over the lungs in multiple projections. Previously, patient inhaled 40 mCi aerosolized 99M technetium DTPA. Images obtained over the lungs in multiple projections Comparison: No comparison nuclear scans. Reference made to chest radiograph taken 2 hours earlier Findings: Slightly heterogeneous tracer distribution is seen on perfusion and aerosol images. No segmental or subsegmental perfusion defects or areas of ventilation/perfusion mismatch demonstrated. Impression: Findings deemed low probability for pulmonary embolus This agrees with the preliminary interpretation provided overnight by [facility] teleradiology service.
--- NOTE | 2019-06-19 22:58 | Cardiology Progress Note ---
Assessment/Plan Status: stable Assessment/Plan Assessment/Plan 73 year old man with HTN, IDDM, ? history of CVA who presented to [facility] ED with nausea,vomiting and hypertensive urgency and SOB -Empiric ABX and IV fluids -BiPAP prn, V/Q and LE US negative for thrombus -Echocardiogram pending -Gallium scan penidng -Replete electrolytes -BP medications held -Hold pressors for now, monitor UOP -Midodrine Prn -Serial Troponin - likely demand ischemia, anticoagulation for 48 hours, monitor for bleeding, monitor platelets -Stress test prior to d/c when stable Subjective Cardiovascular: Reports: no symptoms Respiratory: Reports: no symptoms Gastrointestinal/Abdominal: Reports: no symptoms Genitourinary: Reports: no symptoms Subjective No acute events Heparin discontinued due to thrombocytopenia, on lovenox, Continues to have SOB, V/Q and LE dopplers negative, gallium scan pending. NO complains of chest pain, remains HDS., diuresis stopped. Objective Last 24 Hour Vital Signs Date Time Temp Pulse Resp B/P (MAP) Pulse Ox O2 Delivery O2 Flow Rate FiO2 06/19/19 22:21 99.1 06/19/19 20:00 100.2 95 25 117/57 (77) 96 06/19/19 20:00 35 06/19/19 19:00 107 25 113/61 (78) 93 06/19/19 18:00 106 26 83/45 (58) 92 06/19/19 17:00 115 26 102/87 (92) 97 06/19/19 16:00 Bi-pap 06/19/19 16:00 98.0 109 27 91/59 (70) 98 06/19/19 15:29 112 06/19/19 15:00 128 36 98 35 06/19/19 15:00 115 26 114/69 (84) 97 06/19/19 15:00 121 20 94/78 (83) 94 06/19/19 14:30 35 06/19/19 14:00 121 20 94/78 (83) 94 06/19/19 13:10 128 36 98 35 06/19/19 13:00 126 30 104/63 (77) 94 06/19/19 12:00 103 06/19/19 12:00 Bi-pap 06/19/19 12:00 97.8 118 34 137/72 (93) 92 06/19/19 11:00 118 33 162/82 (108) 92 06/19/19 10:36 120 40 96 35 06/19/19 10:29 35 06/19/19 10:00 107 28 116/43 (67) 95 06/19/19 09:00 87 23 116/43 (67) 95 06/19/19 08:00 92 06/19/19 08:00 Nasal Cannula 2.0 06/19/19 08:00 2.0 06/19/19 08:00 97.7 86 27 157/73 (101) 94 06/19/19 07:00 97 Nasal Cannula 4.0 36 06/19/19 07:00 82 25 140/74 (96) 94 06/19/19 07:00 101 20 97 Nasal Cannula 4.0 36 06/19/19 06:00 78 15 140/63 (88) 93 06/19/19 05:50 2.0 06/19/19 05:31 75 18 100 35 06/19/19 05:00 75 19 131/61 (84) 97 06/19/19 04:00 35 06/19/19 04:00 Bi-pap 2.0 06/19/19 04:00 97.5 83 22 138/65 (89) 99 06/19/19 03:10 83 06/19/19 03:00 81 21 137/46 (76) 98 06/19/19 02:35 86 22 100 35 06/19/19 02:00 86 23 132/45 (74) 99 06/19/19 01:00 87 27 109/48 (68) 99 06/19/19 00:50 84 25 100 35 06/19/19 00:00 98.2 84 21 117/55 (75) 100 06/19/19 00:00 35 06/19/19 00:00 Bi-pap 2.0 06/18/19 23:10 95 18 100 35 06/18/19 23:10 35 06/18/19 23:02 87 06/18/19 23:00 89 24 126/55 (78) 100 General Appearance: no apparent distress, alert EENT: PERRL/EOMI, normal ENT inspection, TMs normal, pharynx normal Neck: non-tender, normal alignment, supple, normal inspection, no JVD Rhythm: NSR Cardiovascular: normal peripheral pulses, normal rate, regular rhythm Respiratory/Chest: decreased breath sounds, accessory muscle use, crackles/ rales Abdomen: normal bowel sounds, non tender, soft, no organomegaly, no mass Extremities: normal range of motion, non-tender, normal inspection, no calf tenderness, no swelling Neurologic: cardio clinician II-XII grossly normal, no motor/sensory deficits Intake and Output 06/18/19 06/19/19 19:00 07:00 Intake Total 1735.45 ml 2174.03 ml Output Total 690 ml 1480 ml Balance 1045.45 ml 694.03 ml Intake Oral 300 ml 200 ml IV Total 1435.45 ml 1974.03 ml Output Urine Total 690 ml 1480 ml # Bowel Movements 1 Laboratory Tests Test 06/19/19 01:00 06/19/19 04:15 06/19/19 08:30 06/19/19 10:20 Activated Partial Thromboplast Time 43 SEC (23-33) H 51 SEC (23-33) H White Blood Count 18.5 K/UL (4.8-10.8) H Red Blood Count 3.57 M/UL (4.70-6.10) L Hemoglobin 10.3 G/DL (14.2-18.0) L Hematocrit 30.6 % (42.0-52.0) L Mean Corpuscular Volume 86 FL (80-99) Mean Corpuscular Hemoglobin 28.8 PG (27.0-31.0) Mean Corpuscular Hemoglobin Concent 33.6 G/DL (32.0-36.0) Red Cell Distribution Width 12.5 % (11.6-14.8) Platelet Count 48 K/UL (150-450) L Mean Platelet Volume 11.0 FL (6.5-10.1) H Neutrophils (%) (Auto) % (45.0-75.0) Lymphocytes (%) (Auto) % (20.0-45.0) Monocytes (%) (Auto) % (1.0-10.0) Eosinophils (%) (Auto) % (0.0-3.0) Basophils (%) (Auto) % (0.0-2.0) Differential Total Cells Counted 100 Neutrophils % (Manual) 85 % (45-75) H Lymphocytes % (Manual) 5 % (20-45) L Monocytes % (Manual) 2 % (1-10) Eosinophils % (Manual) 0 % (0-3) Basophils % (Manual) 0 % (0-2) Band Neutrophils 8 % (0-8) Platelet Estimate Decreased L Platelet Morphology Normal Red Blood Cell Morphology Normal Sodium Level 140 MMOL/L (136-145) Potassium Level 3.9 MMOL/L (3.5-5.1) Chloride Level 109 MMOL/L (98-107) H Carbon Dioxide Level 20 MMOL/L (21-32) L Anion Gap 11 mmol/L (5-15) Blood Urea Nitrogen 63 mg/dL (7-18) H Creatinine 2.6 MG/DL (0.55-1.30) H Estimat Glomerular Filtration Rate 24.3 mL/min (>60) Glucose Level 128 MG/DL (74-106) H Calcium Level 7.8 MG/DL (8.5-10.1) L Total Bilirubin 0.5 MG/DL (0.2-1.0) Aspartate Amino Transf (AST/SGOT) 68 U/L (15-37) H Alanine Aminotransferase (ALT/SGPT) 83 U/L (12-78) H Alkaline Phosphatase 90 U/L (46-116) Total Protein 5.0 G/DL (6.4-8.2) L Albumin 1.7 G/DL (3.4-5.0) L Globulin 3.3 g/dL Albumin/Globulin Ratio 0.5 (1.0-2.7) L Amylase Level 91 U/L (25-115) Lipase 555 U/L (73-393) H Troponin I 1.496 ng/mL (0.000-0.056) HIV (1&2) Antibody Rapid Negative (NEGATIVE) Stool Occult Blood Pending Test 06/19/19 14:19 06/19/19 15:05 Arterial Blood pH 7.298 (7.350-7.450) Arterial Blood Partial Pressure CO2 28.4 mmHg (35.0-45.0) L Arterial Blood Partial Pressure O2 71.2 mmHg (75.0-100.0) L Arterial Blood HCO3 13.6 mmol/L (22.0-26.0) *L Arterial Blood Oxygen Saturation 92.7 % (95-100) L Arterial Blood Base Excess -11.3 (-2-2) *L Saul Test Positive D-Dimer 12.27 mg/L FEU (0.00-0.49) H Ferritin 502 NG/ML (8-388) H Heparin-PF4 Antibody Screen Pending Microbiology Date/Time Source Procedure Growth Status 06/17/19 04:50 Blood Blood Culture - Preliminary NO GROWTH AFTER 24 HOURS Resulted 06/17/19 04:45 Blood Blood Culture - Preliminary NO GROWTH AFTER 24 HOURS Resulted 06/17/19 10:00 Sputum Induced Gram Stain - Final Complete 06/17/19 10:00 Sputum Induced Sputum Culture - Final NO GROWTH AFTER 48 HOURS Complete 06/19/19 10:20 Stool Received Paul Reed MD Jun 19, 2019 22:58
--- NOTE | 2019-06-19 23:30 | NUR ---
NURSE NOTES: Dr Moran made aware of Patient VQ result low probability of pulmonary embolus no new order at this time.
[2019-06-20] VITALS (21 sets, daily range): BP systolic 116–142; BP diastolic 53–79
--- NOTE | 2019-06-20 01:30 | NUR ---
NURSE NOTES: Patient in bed sleeping comfortably no s/s of acute distress. on BIPAP satting 98%. HOB elevated. no s/s of hypo/hyperglycemia. call light within easy reach. will continue plan of care.
[2019-06-20] MEDS: Hydromorphone 0.5mg/0.5ml inj IVP PRN (02:28)
--- NOTE | 2019-06-20 03:30 | NUR ---
NURSE NOTES: Bed bath given tolerated well. with x 1 large brownish BM. kept clean and dry. will continue plan of care.
--- NOTE | 2019-06-20 05:30 | NUR ---
NURSE NOTES: Repositioned in bed. Drank 200cc water tolerated well.
[2019-06-20] MEDS: NovoLOG Insulin Flexpen SUBQ SCH ×4 (06:00→18:00)
[2019-06-20 06:34] LABS: ALANINE AMINOTRANSFERASE 63 U/L (12-78); ALBUMIN 1.6 G/DL (3.4-5.0); ALBUMIN/GLOBULIN RATIO 0.5 (1.0-2.7); ALKALINE PHOSPHATASE 87 U/L (46-116); ANION GAP 13 mmol/L (5-15); ASPARTATE AMINO TRANSFERASE 32 U/L (15-37); BILIRUBIN,TOTAL 0.6 MG/DL (0.2-1.0); BLOOD UREA NITROGEN 64 mg/dL (7-18); CALCIUM 7.7 MG/DL (8.5-10.1); CARBON DIOXIDE 19 MMOL/L (21-32); CHLORIDE 112 MMOL/L (98-107); CREATININE 2.6 MG/DL (0.55-1.30); POTASSIUM 3.8 MMOL/L (3.5-5.1); SODIUM 144 MMOL/L (136-145)
[2019-06-20 06:53] LABS: HEMATOCRIT 31.9 % (42.0-52.0); HEMOGLOBIN 10.8 G/DL (14.2-18.0); MEAN CORPUSCULAR VOLUME 86 FL (80-99); PLATELET COUNT 27 K/UL (150-450); RED BLOOD COUNT 3.72 M/UL (4.70-6.10); RED CELL DISTRIBUTION WIDTH 12.7 % (11.6-14.8); WHITE BLOOD COUNT 9.7 K/UL (4.8-10.8)
[2019-06-20 07:13] LABS: AMYLASE 110 U/L (25-115)
--- NOTE | 2019-06-20 07:15 | NUR ---
HAND-OFF: Report given to Daniel Grant RN.
--- NOTE | 2019-06-20 07:16 | NUR ---
NURSE NOTES: Received patient from Michelle SCHULER. Patient is awake, alert and oriented x3. Sinus Rhythm on the heart monitor, HR 86. Receiving oxygen via venturi mask at 40%, O2 saturation at 98%. IV site is Right Upper arm PICC intact and patent. Rivero catheter is intact and draining. Bed is locked, placed in lowest position, side rails up x3, bed alarm on, call light within reach, head of bed elevated. Will continue to monitor. Addendum: 06/20/19 at 1914 by Ted Grant RN NURSE NOTES: Received patient from Michelle SCHULER. Patient is awake, alert and oriented x3. Sinus Rhythm on the heart monitor, HR 86. Receiving oxygen via venturi mask at 40%, O2 saturation at 98%. IV site is Left Upper arm PICC intact and patent. Rivero catheter is intact and draining. Bed is locked, placed in lowest position, side rails up x3, bed alarm on, call light within reach, head of bed elevated. Will continue to monitor.
--- NOTE | 2019-06-20 08:11 | NUR ---
NURSE NOTES: Right Upper Arm PICC has redness around the area, informed Dr. Graf at bedside and assessed area, noted as bruising. Ordered to follow up on Stat Chest X-ray. Addendum: 06/20/19 at 1914 by Ted Grant RN NURSE NOTES: Left Upper Arm PICC has redness around the area, informed Dr. Graf at bedside and MD assessed area, noted as bruising. Ordered to follow up on Stat Chest X-ray.
[2019-06-20] MEDS: Phenylephrine 50 MG in D5W 245 ML IV SCH (08:30)
[2019-06-20] MEDS: Docusate 100mg cap ORAL SCH ×2 (08:32→21:00)
[2019-06-20] MEDS: Pantoprazole Inj IVP SCH (08:32)
--- NOTE | 2019-06-20 08:58 | Cardiology Progress Note ---
Assessment/Plan Status: stable Assessment/Plan Assessment/Plan 73 year old man with HTN, IDDM, ? history of CVA who presented to [facility] ED with nausea,vomiting and hypertensive urgency and SOB -Empiric ABX and IV fluids -> WBC now normal, no fevers, cultures negative -BiPAP prn, -V/Q and LE US negative for thrombus, CXR with cardiomegaly and interstitial prominence -Echocardiogram with LVEF 40% and PA pressure 55 mmHG and elevated right atrial pressures. -Continue diuresis to lower filling pressures -BP mildly elevated and now off pressors, will need to start SEAN/BB for systolic dysfunction. (ACEI held for ZARINA) Start low dose metoprolol 25 mg BID and titrate -Start aldactone when creatinine <1.5 -Stress test prior to discharge when pulmonary status stable. -D/c troponin check, d/c anticoagulation -Transfer to floor Subjective Cardiovascular: Reports: no symptoms Respiratory: Reports: no symptoms Gastrointestinal/Abdominal: Reports: no symptoms Genitourinary: Reports: no symptoms Subjective No events, no distress, no CP, vitals stable, WBC normal, Platelet down to 27. No fevers. Blood cultures negative Objective Last 24 Hour Vital Signs Date Time Temp Pulse Resp B/P (MAP) Pulse Ox O2 Delivery O2 Flow Rate FiO2 06/20/19 08:30 90 142/53 06/20/19 08:09 82 18 98 Venturi Mask 10.0 45 06/20/19 08:08 98 Venturi Mask 10.0 45 06/20/19 07:00 81 19 122/56 (78) 96 06/20/19 06:00 84 19 129/56 (80) 95 06/20/19 05:00 77 19 136/79 (98) 95 06/20/19 04:41 79 22 127/61 (83) 95 06/20/19 04:00 98.2 79 22 127/61 (83) 95 06/20/19 04:00 Bi-pap 06/20/19 04:00 76 06/20/19 03:02 81 20 130/64 (86) 06/20/19 02:58 99.0 06/20/19 02:00 83 20 141/59 (86) 100 06/20/19 01:38 85 28 126/69 (88) 87 06/20/19 01:00 85 28 126/69 (88) 87 06/20/19 00:12 80 20 98 35 06/20/19 00:00 99.0 81 20 138/54 (82) 96 06/20/19 00:00 83 06/20/19 00:00 Bi-pap 06/19/19 23:00 85 25 114/46 (68) 90 06/19/19 22:21 99.1 06/19/19 22:00 93 29 131/68 (89) 98 06/19/19 21:31 99.2 98 111/60 (77) 06/19/19 21:00 98 111/60 (77) 06/19/19 20:00 100.2 95 25 117/57 (77) 96 06/19/19 20:00 108 06/19/19 20:00 Bi-pap 06/19/19 20:00 35 06/19/19 19:06 94 Nasal Cannula 2.0 28 06/19/19 19:00 107 25 113/61 (78) 93 06/19/19 18:00 106 26 83/45 (58) 92 06/19/19 17:00 115 26 102/87 (92) 97 06/19/19 16:00 Bi-pap 06/19/19 16:00 98.0 109 27 91/59 (70) 98 06/19/19 15:29 112 06/19/19 15:00 128 36 98 35 06/19/19 15:00 115 26 114/69 (84) 97 06/19/19 15:00 121 20 94/78 (83) 94 06/19/19 14:30 35 06/19/19 14:00 121 20 94/78 (83) 94 06/19/19 13:10 128 36 98 35 06/19/19 13:00 126 30 104/63 (77) 94 06/19/19 12:00 103 06/19/19 12:00 Bi-pap 06/19/19 12:00 97.8 118 34 137/72 (93) 92 06/19/19 11:00 118 33 162/82 (108) 92 06/19/19 10:36 120 40 96 35 06/19/19 10:29 35 06/19/19 10:00 107 28 116/43 (67) 95 06/19/19 09:00 87 23 116/43 (67) 95 General Appearance: no apparent distress, alert EENT: PERRL/EOMI, normal ENT inspection, TMs normal, pharynx normal Neck: non-tender, normal alignment, supple, normal inspection, no JVD Rhythm: NSR Cardiovascular: normal peripheral pulses, normal rate, regular rhythm Respiratory/Chest: no accessory muscle use, crackles/rales, rhonchi - bilaterally Abdomen: normal bowel sounds, non tender, soft, no organomegaly, no mass Extremities: normal range of motion, non-tender, normal inspection, no calf tenderness, no swelling Neurologic: sonoscope operator II-XII grossly normal, no motor/sensory deficits Intake and Output 06/19/19 06/20/19 19:00 07:00 Intake Total 1220.925 ml 650 ml Output Total 895 ml 835 ml Balance 325.925 ml -185 ml Intake Oral 200 ml 350 ml IV Total 1020.925 ml 300 ml Output Urine Total 895 ml 835 ml # Bowel Movements 2 1 Laboratory Tests Test 06/19/19 10:20 06/19/19 14:19 06/19/19 15:05 06/20/19 05:00 Stool Occult Blood Pending Arterial Blood pH 7.298 (7.350-7.450) Arterial Blood Partial Pressure CO2 28.4 mmHg (35.0-45.0) L Arterial Blood Partial Pressure O2 71.2 mmHg (75.0-100.0) L Arterial Blood HCO3 13.6 mmol/L (22.0-26.0) *L Arterial Blood Oxygen Saturation 92.7 % (95-100) L Arterial Blood Base Excess -11.3 (-2-2) *L Saul Test Positive D-Dimer 12.27 mg/L FEU (0.00-0.49) H Ferritin 502 NG/ML (8-388) H Heparin-PF4 Antibody Screen Pending White Blood Count 9.7 K/UL (4.8-10.8) Red Blood Count 3.72 M/UL (4.70-6.10) L Hemoglobin 10.8 G/DL (14.2-18.0) L Hematocrit 31.9 % (42.0-52.0) L Mean Corpuscular Volume 86 FL (80-99) Mean Corpuscular Hemoglobin 29.1 PG (27.0-31.0) Mean Corpuscular Hemoglobin Concent 33.9 G/DL (32.0-36.0) Red Cell Distribution Width 12.7 % (11.6-14.8) Platelet Count 27 K/UL (150-450) L Mean Platelet Volume 15.7 FL (6.5-10.1) H Neutrophils (%) (Auto) % (45.0-75.0) Lymphocytes (%) (Auto) % (20.0-45.0) Monocytes (%) (Auto) % (1.0-10.0) Eosinophils (%) (Auto) % (0.0-3.0) Basophils (%) (Auto) % (0.0-2.0) Neutrophils % (Manual) Pending Lymphocytes % (Manual) Pending Platelet Estimate Pending Platelet Morphology Pending Sodium Level 144 MMOL/L (136-145) Potassium Level 3.8 MMOL/L (3.5-5.1) Chloride Level 112 MMOL/L (98-107) H Carbon Dioxide Level 19 MMOL/L (21-32) L Anion Gap 13 mmol/L (5-15) Blood Urea Nitrogen 64 mg/dL (7-18) H Creatinine 2.6 MG/DL (0.55-1.30) H Estimat Glomerular Filtration Rate 24.3 mL/min (>60) Glucose Level 151 MG/DL (74-106) H Calcium Level 7.7 MG/DL (8.5-10.1) L Total Bilirubin 0.6 MG/DL (0.2-1.0) Aspartate Amino Transf (AST/SGOT) 32 U/L (15-37) Alanine Aminotransferase (ALT/SGPT) 63 U/L (12-78) Alkaline Phosphatase 87 U/L (46-116) Total Protein 4.6 G/DL (6.4-8.2) L Albumin 1.6 G/DL (3.4-5.0) L Globulin 3.0 g/dL Albumin/Globulin Ratio 0.5 (1.0-2.7) L Amylase Level 110 U/L (25-115) Lipase 1012 U/L (73-393) H Microbiology Date/Time Source Procedure Growth Status 06/17/19 10:00 Sputum Induced Gram Stain - Final Complete 06/17/19 10:00 Sputum Induced Sputum Culture - Final NO GROWTH AFTER 48 HOURS Complete 06/19/19 10:20 Stool Received Paul Reed MD Jun 20, 2019 08:58
[2019-06-20] MEDS ORDERED: Aspirin Baby 81mg NG SCH (09:00)
--- NOTE | 2019-06-20 09:36 | NUR ---
NURSE NOTES: Tomeka from PT is assessing and performing physical therapy with patient.
--- NOTE | 2019-06-20 09:40 | General Progress Note ---
Assessment/Plan Status: stable Assessment/Plan: 73 year old man with HTN, IDDM, ? history of CVA who presented to [facility] [place] ED with nausea,vomiting. #septic shock, POA #Klebsiella bacteremia -cont ICU level of care -Stopped IV fluids due to hypoxemia -cont antibiotics as per ID recs -ID following #acute hypoxic resp failure without hypercarbia -intermittent BiPAP -continue inhaled bronchodilators -repeat CXR pedning -Pulm/CCM following #NSTEMI, peak trop of 2, likely due to demand ischemia -Stop heparin due to thrombocytopenia -Cardiology following #acute kidney injury on CKD, possible ATN -IV hydration stopped as above -Nephrology following -monitor BMP -avoid nephrotoxic meds #acute pancreatitis -Advance diet as per GI -? Need for EUS #Thrombocytopenia, no active bleeding noted -off heparin -transfuse for Platelets < 20K -cont to monitor daily CBC -Hematology consult appreciated #Hypokalemia, hypomagnesemia -replace and monitor labs #lactic acidosis #HTN -cont to hold BP meds #DM type 2 -ISS VTE PPx Heparin Full Code .I spent 75 minutes on this patient's case, and 37 mins was dedicated to critical care Critical Care Services performed include: Telemetry Review Hemodynamic measurement interpretation Laboratory data review and interpretation Radiology image review and interpretation Interpretation of ABG's Discussion of patient's care with ICU team, ICU Nursing staff and/or cons Subjective Date patient seen: Jun 20, 2019 Time patient seen: 06:55 ROS Limited/Unobtainable: No Constitutional: Denies: chills Cardiovascular: Denies: chest pain Respiratory: Denies: cough Gastrointestinal/Abdominal: Denies: abdomen distended, abdominal pain Neurologic/Psychiatric: Denies: anxiety, depressed Allergies: Coded Allergies: No Known Allergies (Unverified , 06/02/19) Subjective Follow up for septic shock, acute hypoxic resp failure, ZARINA, acute metabolic encephalopathy Got 1 dose of IV Lasix yesterday by Pulm, respiratory status improved. Currently on venti. Platelets continue to drop Objective Last 24 Hour Vital Signs Date Time Temp Pulse Resp B/P (MAP) Pulse Ox O2 Delivery O2 Flow Rate FiO2 06/20/19 09:34 87 144/55 06/20/19 08:30 90 142/53 06/20/19 08:09 82 18 98 Venturi Mask 10.0 45 06/20/19 08:08 98 Venturi Mask 10.0 45 06/20/19 07:00 81 19 122/56 (78) 96 06/20/19 06:00 84 19 129/56 (80) 95 06/20/19 05:00 77 19 136/79 (98) 95 06/20/19 04:41 79 22 127/61 (83) 95 06/20/19 04:00 98.2 79 22 127/61 (83) 95 06/20/19 04:00 Bi-pap 06/20/19 04:00 76 06/20/19 03:02 81 20 130/64 (86) 06/20/19 02:58 99.0 06/20/19 02:00 83 20 141/59 (86) 100 06/20/19 01:38 85 28 126/69 (88) 87 06/20/19 01:00 85 28 126/69 (88) 87 06/20/19 00:12 80 20 98 35 06/20/19 00:00 99.0 81 20 138/54 (82) 96 06/20/19 00:00 83 06/20/19 00:00 Bi-pap 06/19/19 23:00 85 25 114/46 (68) 90 06/19/19 22:21 99.1 06/19/19 22:00 93 29 131/68 (89) 98 06/19/19 21:31 99.2 98 111/60 (77) 06/19/19 21:00 98 111/60 (77) 06/19/19 20:00 100.2 95 25 117/57 (77) 96 06/19/19 20:00 108 06/19/19 20:00 Bi-pap 06/19/19 20:00 35 06/19/19 19:06 94 Nasal Cannula 2.0 28 06/19/19 19:00 107 25 113/61 (78) 93 06/19/19 18:00 106 26 83/45 (58) 92 06/19/19 17:00 115 26 102/87 (92) 97 06/19/19 16:00 Bi-pap 06/19/19 16:00 98.0 109 27 91/59 (70) 98 06/19/19 15:29 112 06/19/19 15:00 128 36 98 35 06/19/19 15:00 115 26 114/69 (84) 97 06/19/19 15:00 121 20 94/78 (83) 94 06/19/19 14:30 35 06/19/19 14:00 121 20 94/78 (83) 94 06/19/19 13:10 128 36 98 35 06/19/19 13:00 126 30 104/63 (77) 94 06/19/19 12:00 103 06/19/19 12:00 Bi-pap 06/19/19 12:00 97.8 118 34 137/72 (93) 92 06/19/19 11:00 118 33 162/82 (108) 92 06/19/19 10:36 120 40 96 35 06/19/19 10:29 35 06/19/19 10:00 107 28 116/43 (67) 95 Intake and Output 06/19/19 06/20/19 19:00 07:00 Intake Total 1220.925 ml 650 ml Output Total 895 ml 835 ml Balance 325.925 ml -185 ml Intake Oral 200 ml 350 ml IV Total 1020.925 ml 300 ml Output Urine Total 895 ml 835 ml # Bowel Movements 2 1 Laboratory Tests 06/19/19 10:20: Stool Occult Blood [Pending] 06/19/19 14:19: Arterial Blood pH 7.298L, Arterial Blood Partial Pressure CO2 28.4L, Arterial Blood Partial Pressure O2 71.2L, Arterial Blood HCO3 13.6*L, Arterial Blood Oxygen Saturation 92.7L, Arterial Blood Base Excess -11.3*L, Saul Test Positive 06/19/19 15:05: D-Dimer 12.27H, Ferritin 502H, Heparin-PF4 Antibody Screen [Pending] 06/20/19 05:00: White Blood Count 9.7, Red Blood Count 3.72L, Hemoglobin 10.8L, Hematocrit 31.9L , Mean Corpuscular Volume 86, Mean Corpuscular Hemoglobin 29.1, Mean Corpuscular Hemoglobin Concent 33.9, Red Cell Distribution Width 12.7, Platelet Count 27L, Mean Platelet Volume 15.7H, Neutrophils (%) (Auto) , Lymphocytes (%) (Auto) , Monocytes (%) (Auto) , Eosinophils (%) (Auto) , Basophils (%) (Auto) , Neutrophils % (Manual) [Pending], Lymphocytes % (Manual) [Pending], Platelet Estimate [Pending], Platelet Morphology [Pending], Sodium Level 144, Potassium Level 3.8, Chloride Level 112H, Carbon Dioxide Level 19L, Anion Gap 13, Blood Urea Nitrogen 64H, Creatinine 2.6H, Estimat Glomerular Filtration Rate 24.3, Glucose Level 151H, Calcium Level 7.7L, Total Bilirubin 0.6, Aspartate Amino Transf (AST/SGOT) 32, Alanine Aminotransferase (ALT/SGPT) 63, Alkaline Phosphatase 87, Total Protein 4.6L, Albumin 1.6L, Globulin 3.0, Albumin/ Globulin Ratio 0.5L, Amylase Level 110, Lipase 1012H Height (Feet): 5 Height (Inches): 7.00 Weight (Pounds): 211 General Appearance: no apparent distress, alert Neck: normal alignment, supple Cardiovascular: normal rate, regular rhythm Respiratory/Chest: lungs clear, normal breath sounds Abdomen: non tender, soft Extremities: non-tender Harinder Ochoa MD Jun 20, 2019 09:40
--- NOTE | 2019-06-20 09:50 | General Progress Note ---
Assessment/Plan Problem List: (1) Acute kidney injury superimposed on CKD ICD Codes: N17.9 - Acute kidney failure, unspecified; N18.9 - Chronic kidney disease, unspecified SNOMED: 78557941, 340078517 (2) Sepsis ICD Codes: A41.9 - Sepsis, unspecified organism SNOMED: 50319804 Qualifiers: Qualified Codes: A41.9 - Sepsis, unspecified organism; R65.21 - Severe sepsis with septic shock; N17.9 - Acute kidney failure, unspecified (3) Elevated troponin ICD Codes: R79.89 - Other specified abnormal findings of blood chemistry SNOMED: 828041358, 757712684, 561915668 Status: stable Assessment/Plan: diarrhea anemia esophagitis CM pancreatic pseudocyst ? trending down amyalse but rising lipase! on full liquid diet patient will need EUS but given elevated trop will hold for now plan repeat CT abx per id fu cardiology ad nephrology repeat labs in am ppi stool studies Subjective ROS Limited/Unobtainable: Yes Allergies: Coded Allergies: No Known Allergies (Unverified , 06/02/19) Objective Last 24 Hour Vital Signs Date Time Temp Pulse Resp B/P (MAP) Pulse Ox O2 Delivery O2 Flow Rate FiO2 06/20/19 09:34 87 144/55 06/20/19 09:00 84 23 140/55 (83) 93 06/20/19 08:30 90 142/53 06/20/19 08:09 82 18 98 Venturi Mask 10.0 45 06/20/19 08:08 98 Venturi Mask 10.0 45 06/20/19 08:00 88 20 142/53 (82) 97 06/20/19 07:00 81 19 122/56 (78) 96 06/20/19 06:00 84 19 129/56 (80) 95 06/20/19 05:00 77 19 136/79 (98) 95 06/20/19 04:41 79 22 127/61 (83) 95 06/20/19 04:00 98.2 79 22 127/61 (83) 95 06/20/19 04:00 Bi-pap 06/20/19 04:00 76 06/20/19 03:02 81 20 130/64 (86) 06/20/19 02:58 99.0 06/20/19 02:00 83 20 141/59 (86) 100 06/20/19 01:38 85 28 126/69 (88) 87 06/20/19 01:00 85 28 126/69 (88) 87 06/20/19 00:12 80 20 98 35 06/20/19 00:00 99.0 81 20 138/54 (82) 96 06/20/19 00:00 83 06/20/19 00:00 Bi-pap 06/19/19 23:00 85 25 114/46 (68) 90 06/19/19 22:21 99.1 06/19/19 22:00 93 29 131/68 (89) 98 06/19/19 21:31 99.2 98 111/60 (77) 06/19/19 21:00 98 111/60 (77) 06/19/19 20:00 100.2 95 25 117/57 (77) 96 06/19/19 20:00 108 06/19/19 20:00 Bi-pap 06/19/19 20:00 35 06/19/19 19:06 94 Nasal Cannula 2.0 28 06/19/19 19:00 107 25 113/61 (78) 93 06/19/19 18:00 106 26 83/45 (58) 92 06/19/19 17:00 115 26 102/87 (92) 97 06/19/19 16:00 Bi-pap 06/19/19 16:00 98.0 109 27 91/59 (70) 98 06/19/19 15:29 112 06/19/19 15:00 128 36 98 35 06/19/19 15:00 115 26 114/69 (84) 97 06/19/19 15:00 121 20 94/78 (83) 94 06/19/19 14:30 35 06/19/19 14:00 121 20 94/78 (83) 94 06/19/19 13:10 128 36 98 35 06/19/19 13:00 126 30 104/63 (77) 94 06/19/19 12:00 103 06/19/19 12:00 Bi-pap 06/19/19 12:00 97.8 118 34 137/72 (93) 92 06/19/19 11:00 118 33 162/82 (108) 92 06/19/19 10:36 120 40 96 35 06/19/19 10:29 35 06/19/19 10:00 107 28 116/43 (67) 95 Intake and Output 06/19/19 06/20/19 19:00 07:00 Intake Total 1220.925 ml 650 ml Output Total 895 ml 835 ml Balance 325.925 ml -185 ml Intake Oral 200 ml 350 ml IV Total 1020.925 ml 300 ml Output Urine Total 895 ml 835 ml # Bowel Movements 2 1 Laboratory Tests 06/19/19 10:20: Stool Occult Blood [Pending] 06/19/19 14:19: Arterial Blood pH 7.298L, Arterial Blood Partial Pressure CO2 28.4L, Arterial Blood Partial Pressure O2 71.2L, Arterial Blood HCO3 13.6*L, Arterial Blood Oxygen Saturation 92.7L, Arterial Blood Base Excess -11.3*L, Saul Test Positive 06/19/19 15:05: D-Dimer 12.27H, Ferritin 502H, Heparin-PF4 Antibody Screen [Pending] 06/20/19 05:00: White Blood Count 9.7, Red Blood Count 3.72L, Hemoglobin 10.8L, Hematocrit 31.9L , Mean Corpuscular Volume 86, Mean Corpuscular Hemoglobin 29.1, Mean Corpuscular Hemoglobin Concent 33.9, Red Cell Distribution Width 12.7, Platelet Count 27L, Mean Platelet Volume 15.7H, Neutrophils (%) (Auto) , Lymphocytes (%) (Auto) , Monocytes (%) (Auto) , Eosinophils (%) (Auto) , Basophils (%) (Auto) , Differential Total Cells Counted 100, Neutrophils % (Manual) 78H, Lymphocytes % (Manual) 13L, Monocytes % (Manual) 9, Eosinophils % (Manual) 0, Basophils % ( Manual) 0, Band Neutrophils 0, Platelet Estimate DecreasedL, Platelet Morphology Normal, Hypochromasia 1+, Sodium Level 144, Potassium Level 3.8, Chloride Level 112H, Carbon Dioxide Level 19L, Anion Gap 13, Blood Urea Nitrogen 64H, Creatinine 2.6H, Estimat Glomerular Filtration Rate 24.3, Glucose Level 151H, Calcium Level 7.7L, Total Bilirubin 0.6, Aspartate Amino Transf (AST /SGOT) 32, Alanine Aminotransferase (ALT/SGPT) 63, Alkaline Phosphatase 87, Total Protein 4.6L, Albumin 1.6L, Globulin 3.0, Albumin/Globulin Ratio 0.5L, Amylase Level 110, Lipase 1012H Height (Feet): 5 Height (Inches): 7.00 Weight (Pounds): 211 General Appearance: alert EENT: normal ENT inspection Neck: supple Cardiovascular: normal rate Respiratory/Chest: decreased breath sounds Abdomen: normal bowel sounds, non tender, soft Extremities: non-tender Peyman Akbar MD Jun 20, 2019 09:50
--- NOTE | 2019-06-20 09:55 | NUR ---
PT EVALUATION NOTE Patient seen for initial evaluation. Patient presents with generalized weakness and deconditioning with impaired balance which affects patient's ability to perform mobility tasks safely. Patient requires mod assist for bed mobility and transfers. Patient able to take several small sideways steps with mod assist however very unsteady. Patient will benefit from skilled inpatient PT intervention to address strength, balance and safety for increased level of independence with functional mobility. Recommend discharge to SNF for short term rehab vs home with home PT and family assistance depending on patient's progress once medically cleared by MD. Patient may benefit from use of FWW for ambulation depending on patient's progress. Addendum: 06/20/19 at 1245 by SADIE SAAB PT Amended: Links added.
--- NOTE | 2019-06-20 10:05 | Diagnostic Imaging Report ---
Indication: Cough Technique: One view of the chest Comparison: 06/17/2019 Findings: Mild interstitial congestive changes persist. There is suggestion of slight hazy airspace opacity in the right mid and lower lung as well. The heart remains enlarged. Left arm PICC remains Impression: Persistent bilateral interstitial congestive changes and possibly developing airspace opacities in the right mid and lower lung, over 2 days
--- NOTE | 2019-06-20 10:46 | NUR ---
RADIOLOGY: PCXR COMPLETED 0900 HRS. NF
--- NOTE | 2019-06-20 11:21 | Diagnostic Imaging Report ---
Indication: Cough Technique: One view of the chest Comparison: 06/19/2019 Findings: Right mid and lower lung infiltrates, generalized interstitial congestion persists, unchanged. Cardiomegaly again demonstrated. Impression: Unchanged, over one day, findings as above.
--- NOTE | 2019-06-20 12:20 | NUR ---
NURSE NOTES: Patient was accompanied with RN down to CT room. No signs of distress during the procedure. Patient denies any pain, returned to room safely approximately at 1245. Will continue to monitor.
--- NOTE | 2019-06-20 12:43 | NUR ---
CT ABDOMEN/PELVIS WITH ONLY ORAL COMPLETED.
--- NOTE | 2019-06-20 14:17 | Pulmonolgy Critical Care Note ---
Critical Care - Asmt/Plan Problems: (1) Sepsis (2) Hypoxia (3) Renal failure (4) Acute pancreatitis (5) Acute kidney injury superimposed on CKD (6) Left upper quadrant abdominal mass (7) Elevated troponin (8) Smoker (9) Thrombocytopenia Assessment/Plan: BiPAP PRN Titrate FiO2 HHN's Monitor volumes and renal function ABx (Flagyl/Ctx/Doxy) per ID, F/U Cx's F/U cards recs ? ischemia eval once acute issues resolve F/U GI recs, F/U CA-19-9 Monitor platelets, F/U HIT Ab panel Cautious PO only when off BiPAP with STRICT ASPIRATION precautions In the future should have a CT chest (screening) when acute issues resolve DVT Px: SCD's FC Transfer to [facility] Can D/C PICC prior to D/C CCT 35 Critical Care - Objective Last 24 Hour Vital Signs Date Time Temp Pulse Resp B/P (MAP) Pulse Ox O2 Delivery O2 Flow Rate FiO2 06/20/19 12:00 Bi-pap 06/20/19 12:00 98.0 74 19 126/59 (81) 100 06/20/19 11:00 78 19 130/61 (84) 100 06/20/19 10:00 81 15 123/58 (79) 96 06/20/19 09:34 87 144/55 06/20/19 09:00 84 23 140/55 (83) 93 06/20/19 08:30 90 142/53 06/20/19 08:17 76 06/20/19 08:09 82 18 98 Venturi Mask 10.0 45 06/20/19 08:08 98 Venturi Mask 10.0 45 06/20/19 08:00 98.0 88 20 142/53 (82) 97 06/20/19 08:00 Bi-pap 06/20/19 07:00 81 19 122/56 (78) 96 06/20/19 06:00 84 19 129/56 (80) 95 06/20/19 05:00 77 19 136/79 (98) 95 06/20/19 04:41 79 22 127/61 (83) 95 06/20/19 04:00 98.2 79 22 127/61 (83) 95 06/20/19 04:00 Bi-pap 06/20/19 04:00 76 06/20/19 03:02 81 20 130/64 (86) 06/20/19 02:58 99.0 06/20/19 02:00 83 20 141/59 (86) 100 06/20/19 01:38 85 28 126/69 (88) 87 06/20/19 01:00 85 28 126/69 (88) 87 06/20/19 00:12 80 20 98 35 06/20/19 00:00 99.0 81 20 138/54 (82) 96 06/20/19 00:00 83 06/20/19 00:00 Bi-pap 06/19/19 23:00 85 25 114/46 (68) 90 06/19/19 22:21 99.1 06/19/19 22:00 93 29 131/68 (89) 98 06/19/19 21:31 99.2 98 111/60 (77) 06/19/19 21:00 98 111/60 (77) 06/19/19 20:00 100.2 95 25 117/57 (77) 96 06/19/19 20:00 108 06/19/19 20:00 Bi-pap 06/19/19 20:00 35 06/19/19 19:06 94 Nasal Cannula 2.0 28 06/19/19 19:00 107 25 113/61 (78) 93 06/19/19 18:00 106 26 83/45 (58) 92 06/19/19 17:00 115 26 102/87 (92) 97 06/19/19 16:00 Bi-pap 06/19/19 16:00 98.0 109 27 91/59 (70) 98 06/19/19 15:29 112 06/19/19 15:00 128 36 98 35 06/19/19 15:00 115 26 114/69 (84) 97 06/19/19 15:00 121 20 94/78 (83) 94 06/19/19 14:30 35 Status: awake Condition: improving HEENT: atraumatic, normocephalic Lungs: clear Heart: HR/BP stable Abdomen: soft, non-tender, active bowel sounds Extremities: no C/C/E Micro: Microbiology Date/Time Source Procedure Growth Status 06/19/19 10:20 Stool Clostridium difficile Toxin Assay - Final Complete Accucheck: 161 Blood Sugars: BS controlled Critical Care - Subjective ROS Limited/Unobtainable: Yes ICU Day: 6 Interval Events: VQ LP duplex neg Awake and alert Off BiPAP now 2L Angy PO Has been working with PT, stood with assistance Condition: improving IV Access: PICC EKG Rhythm: Sinus Rhythm FI02: 45 Vent Support Breath Rate: 14 Vent Support Mode: BiLevel Sputum Amount: None Secretions: None Fluids: SLIV Drips: N/A I&O: Intake and Output 06/19/19 06/20/19 18:59 06:59 Intake Total 1557.475 ml 650 ml Output Total 940 ml 825 ml Balance 617.475 ml -175 ml Intake Oral 300 ml 350 ml IV Total 1257.475 ml 300 ml Output Urine Total 940 ml 825 ml # Bowel Movements 2 1 Subjective: No F/C/CP/SOB/coughh CXR: No change Labs: Laboratory Tests Test 06/19/19 14:19 06/19/19 15:05 06/20/19 05:00 Arterial Blood pH 7.298 (7.350-7.450) Arterial Blood Partial Pressure CO2 28.4 mmHg (35.0-45.0) L Arterial Blood Partial Pressure O2 71.2 mmHg (75.0-100.0) L Arterial Blood HCO3 13.6 mmol/L (22.0-26.0) *L Arterial Blood Oxygen Saturation 92.7 % (95-100) L Arterial Blood Base Excess -11.3 (-2-2) *L Saul Test Positive D-Dimer 12.27 mg/L FEU (0.00-0.49) H Ferritin 502 NG/ML (8-388) H Heparin-PF4 Antibody Screen Pending White Blood Count 9.7 K/UL (4.8-10.8) Red Blood Count 3.72 M/UL (4.70-6.10) L Hemoglobin 10.8 G/DL (14.2-18.0) L Hematocrit 31.9 % (42.0-52.0) L Mean Corpuscular Volume 86 FL (80-99) Mean Corpuscular Hemoglobin 29.1 PG (27.0-31.0) Mean Corpuscular Hemoglobin Concent 33.9 G/DL (32.0-36.0) Red Cell Distribution Width 12.7 % (11.6-14.8) Platelet Count 27 K/UL (150-450) L Mean Platelet Volume 15.7 FL (6.5-10.1) H Neutrophils (%) (Auto) % (45.0-75.0) Lymphocytes (%) (Auto) % (20.0-45.0) Monocytes (%) (Auto) % (1.0-10.0) Eosinophils (%) (Auto) % (0.0-3.0) Basophils (%) (Auto) % (0.0-2.0) Differential Total Cells Counted 100 Neutrophils % (Manual) 78 % (45-75) H Lymphocytes % (Manual) 13 % (20-45) L Monocytes % (Manual) 9 % (1-10) Eosinophils % (Manual) 0 % (0-3) Basophils % (Manual) 0 % (0-2) Band Neutrophils 0 % (0-8) Platelet Estimate Decreased L Platelet Morphology Normal Hypochromasia 1+ Sodium Level 144 MMOL/L (136-145) Potassium Level 3.8 MMOL/L (3.5-5.1) Chloride Level 112 MMOL/L (98-107) H Carbon Dioxide Level 19 MMOL/L (21-32) L Anion Gap 13 mmol/L (5-15) Blood Urea Nitrogen 64 mg/dL (7-18) H Creatinine 2.6 MG/DL (0.55-1.30) H Estimat Glomerular Filtration Rate 24.3 mL/min (>60) Glucose Level 151 MG/DL (74-106) H Calcium Level 7.7 MG/DL (8.5-10.1) L Total Bilirubin 0.6 MG/DL (0.2-1.0) Aspartate Amino Transf (AST/SGOT) 32 U/L (15-37) Alanine Aminotransferase (ALT/SGPT) 63 U/L (12-78) Alkaline Phosphatase 87 U/L (46-116) Total Protein 4.6 G/DL (6.4-8.2) L Albumin 1.6 G/DL (3.4-5.0) L Globulin 3.0 g/dL Albumin/Globulin Ratio 0.5 (1.0-2.7) L Amylase Level 110 U/L (25-115) Lipase 1012 U/L (73-393) H Homero Moran MD Jun 20, 2019 14:17
--- NOTE | 2019-06-20 14:30 | Diagnostic Imaging Report ---
Indication: Abdominal pain, diarrhea, esophagitis, anemia Technique: Spiral acquisitions obtained through the abdomen and pelvis. Patient ingested oral contrast. No IV contrast utilized, reason not stated. Multiplanar reconstructions were generated. Total dose length product 1115 mGycm. CTDIvol(s) 19 mGy. Dose reduction achieved using automated exposure control Comparison: 06/15/2019 Findings: Again demonstrated is a left upper quadrant cystic mass. This measures 12.2 cm AP by 11.4 cm transverse, slightly larger than previous dimensions of 11.5 x 10.5 cm. There is decreased infiltration of the surrounding fat. Again demonstrated is atrophy of the pancreatic tail. The pancreatic head and body appear unremarkable and unchanged. The lack of IV contrast limits assessment of the solid organs. The liver is grossly unremarkable. The gallbladder is surgically absent. No biliary ductal dilatation. The spleen, adrenals are unremarkable. Bilateral renal cysts are again demonstrated. A calcification in the right renal sinus is probably arterial but could represent small nonobstructive calyceal calculus. Again demonstrated is increased attenuation of the bilateral perinephric fat. No retroperitoneal or mesenteric mass or adenopathy. No pelvic mass or adenopathy. A Rivero catheter is now present within the bladder. There is no evidence of diverticulosis or diverticulitis. The appendix is normal. No small bowel distention. No free or loculated intraperitoneal gas is evident. There is a small amount of intraperitoneal fluid overlying the dome of the liver. There is diffuse edema of the subcutaneous fat. Interim development of moderate size bilateral pleural effusions. There are resultant compressive atelectatic changes at both lung bases. The heart is borderline enlarged. There is some interstitial and airspace edema at the lung bases, increased from previously. The bones demonstrate degenerative spondylosis changes. Impression: Left upper quadrant cystic mass adjacent to the pancreatic tail and greater curvature the stomach, also reported previously, equivocally slightly larger currently. As previously described, most likely a pancreatic pseudocyst. Cystic pancreatic neoplasm also possible Trace ascites. This is a new finding since the prior exam. Bilateral pleural effusions and bilateral pulmonary parenchymal compressive atelectasis. Likewise a new finding since previous study Nonspecific bilateral perinephric fat stranding, also previously reported Bilateral basilar pulmonary interstitial and airspace edema Generalized edema of the subcutaneous fat Portable cardiomegaly Empty bladder with a Rivero catheter Degenerative spondylosis The CT scanner at [facility] is accredited by the [employer] and the scans are performed using protocols designed to limit radiation exposure to as low as reasonably achievable to attain images of sufficient resolution adequate for diagnostic evaluation.
--- NOTE | 2019-06-20 15:10 | Nephrology Progress Note ---
Assessment/Plan Plan #acute kidney injury - on baseline CKD- Fena 0.4% suggestive of pre-renal aztemia- however UA with sediments and RBC concerning for developing ATN- patient with baseline diabetic nephropathy - improving #sepsis #acute pancreatitis # Hypokalemia, hypopmagnesemia #lactic acidosis- improved #HTN- stable #DM- #NSTEMI- on lovenox - DCed IVF - monitor Cr - diuretics prn - GI eval - on CLD- advance as tolerated - on doxy and ceftriaxone - heparin on hold for thrombocytopenia - HIT? - cardiology eval - ischemia eval? - maintain contreras - monitor UOP closely - monitor bicarb level - Getting transferred to [facility] - hold lisinopril - hold metformin - hold amlodipine - ISS Subjective Subjective UOP 610 today so far Breathing stable today BP stable Cr improving -> down to 2.6 mentating well tolerating CLDdiet Objective Objective Last 24 Hour Vital Signs Date Time Temp Pulse Resp B/P (MAP) Pulse Ox O2 Delivery O2 Flow Rate FiO2 06/20/19 14:00 75 20 116/54 (74) 94 06/20/19 13:00 73 21 118/58 (78) 94 06/20/19 12:00 Bi-pap 06/20/19 12:00 98.0 74 19 126/59 (81) 100 06/20/19 11:26 78 06/20/19 11:00 78 19 130/61 (84) 100 06/20/19 10:00 81 15 123/58 (79) 96 06/20/19 09:34 87 144/55 06/20/19 09:00 84 23 140/55 (83) 93 06/20/19 08:30 90 142/53 06/20/19 08:17 76 06/20/19 08:09 82 18 98 Venturi Mask 10.0 45 06/20/19 08:08 98 Venturi Mask 10.0 45 06/20/19 08:00 98.0 88 20 142/53 (82) 97 06/20/19 08:00 Bi-pap 06/20/19 07:00 81 19 122/56 (78) 96 06/20/19 06:00 84 19 129/56 (80) 95 06/20/19 05:00 77 19 136/79 (98) 95 06/20/19 04:41 79 22 127/61 (83) 95 06/20/19 04:00 98.2 79 22 127/61 (83) 95 06/20/19 04:00 Bi-pap 06/20/19 04:00 76 06/20/19 03:02 81 20 130/64 (86) 06/20/19 02:58 99.0 06/20/19 02:00 83 20 141/59 (86) 100 06/20/19 01:38 85 28 126/69 (88) 87 06/20/19 01:00 85 28 126/69 (88) 87 06/20/19 00:12 80 20 98 35 06/20/19 00:00 99.0 81 20 138/54 (82) 96 06/20/19 00:00 83 06/20/19 00:00 Bi-pap 06/19/19 23:00 85 25 114/46 (68) 90 06/19/19 22:21 99.1 06/19/19 22:00 93 29 131/68 (89) 98 06/19/19 21:31 99.2 98 111/60 (77) 06/19/19 21:00 98 111/60 (77) 06/19/19 20:00 100.2 95 25 117/57 (77) 96 06/19/19 20:00 108 06/19/19 20:00 Bi-pap 06/19/19 20:00 35 06/19/19 19:06 94 Nasal Cannula 2.0 28 06/19/19 19:00 107 25 113/61 (78) 93 06/19/19 18:00 106 26 83/45 (58) 92 06/19/19 17:00 115 26 102/87 (92) 97 06/19/19 16:00 Bi-pap 06/19/19 16:00 98.0 109 27 91/59 (70) 98 06/19/19 15:29 112 Intake and Output 06/19/19 06/20/19 19:00 07:00 Intake Total 1220.925 ml 650 ml Output Total 895 ml 835 ml Balance 325.925 ml -185 ml Intake Oral 200 ml 350 ml IV Total 1020.925 ml 300 ml Output Urine Total 895 ml 835 ml # Bowel Movements 2 1 Laboratory Tests 06/20/19 05:00: White Blood Count 9.7, Red Blood Count 3.72L, Hemoglobin 10.8L, Hematocrit 31.9L , Mean Corpuscular Volume 86, Mean Corpuscular Hemoglobin 29.1, Mean Corpuscular Hemoglobin Concent 33.9, Red Cell Distribution Width 12.7, Platelet Count 27L, Mean Platelet Volume 15.7H, Neutrophils (%) (Auto) , Lymphocytes (%) (Auto) , Monocytes (%) (Auto) , Eosinophils (%) (Auto) , Basophils (%) (Auto) , Differential Total Cells Counted 100, Neutrophils % (Manual) 78H, Lymphocytes % (Manual) 13L, Monocytes % (Manual) 9, Eosinophils % (Manual) 0, Basophils % ( Manual) 0, Band Neutrophils 0, Platelet Estimate DecreasedL, Platelet Morphology Normal, Hypochromasia 1+, Sodium Level 144, Potassium Level 3.8, Chloride Level 112H, Carbon Dioxide Level 19L, Anion Gap 13, Blood Urea Nitrogen 64H, Creatinine 2.6H, Estimat Glomerular Filtration Rate 24.3, Glucose Level 151H, Calcium Level 7.7L, Total Bilirubin 0.6, Aspartate Amino Transf (AST /SGOT) 32, Alanine Aminotransferase (ALT/SGPT) 63, Alkaline Phosphatase 87, Total Protein 4.6L, Albumin 1.6L, Globulin 3.0, Albumin/Globulin Ratio 0.5L, Amylase Level 110, Lipase 1012H Height (Feet): 5 Height (Inches): 7.00 Weight (Pounds): 211 Objective General Appearance: Alert - no distress Lines, tubes and drains: peripheral HEENT: normocephalic, atraumatic Neck: non-tender, normal alignment Respiratory/Chest: chest wall non-tender, lungs clear, normal breath sounds Cardiovascular/Chest: normal rate, regular rhythm Abdomen: normal bowel sounds, non tender, soft Extremities: non-tender, normal inspection Skin Exam: normal pigmentation, no diaphoresis Gerson Salgado M.D. Jun 20, 2019 15:10
--- NOTE | 2019-06-20 15:44 | NUR ---
NURSE NOTES: Gave bed bath to patient, patient tolerated well, no signs of distress, patient denies pain. Will continue to monitor.
--- NOTE | 2019-06-20 16:04 | Infectious Diseases Prog Note ---
Assessment/Plan Assessment/Plan 1. klebsiella bacteremia, sepsis, shock, pna vs chf, ? cap, aspiration risk, leukocytosis, pancreatitis, pseudocyst, ct noted, ? uti - ceftriaxone and flagyl - day # 5 abx - discontinue doxycycline - f/u on labs and chest x-ray, CT noted - legionella urine antigen negative, mycoplasma igm wnl, sc-ng - icu care, respiratory care - continue treatment per primary care team and consultants - clinically improved, shock resolved, surveillance blood cultures negative 2. Shock - improved, off pressors 3. Shortness of breath, hypoxia, on BiPAP - improved, off pressors 4. Pulmonary followup. 5. Acute renal failure. 6. Anemia. 7. Diabetes. 8. Hypertension. 9. Blood sugar and blood pressure treatment per primary care team. 10. Possible CVA history. 11. No known drug allergies. 12. Social history is negative. 13. Family history is noncontributory. 14. MAR was noted. 15. Case discussed with RN. 16. Continue treatment per primary consultants. 17. ICU care. 18. Skin care protocol. 19. Orders were noted and entered. 20. GI followup. Subjective Constitutional: Reports: fever - lgt - 100.2, fatigue HEENT: Reports: congestion - less Respiratory: Reports: shortness of breath - less Cardiovascular: Reports: other - no pressors ; Denies: chest pain Gastrointestinal/Abdominal: Denies: nausea, vomiting, diarrhea Neurologic: Denies: headache Psychiatric: Denies: depression Skin: Denies: rash Hematologic: Denies: bleeding Musculoskeletal: Denies: pain Allergies: Coded Allergies: No Known Allergies (Unverified , 06/02/19) Objective Vital Signs Last 24 Hour Vital Signs Date Time Temp Pulse Resp B/P (MAP) Pulse Ox O2 Delivery O2 Flow Rate FiO2 06/20/19 15:00 76 21 120/56 (77) 98 06/20/19 14:00 75 20 116/54 (74) 94 06/20/19 13:00 73 21 118/58 (78) 94 06/20/19 12:00 Bi-pap 06/20/19 12:00 98.0 74 19 126/59 (81) 100 06/20/19 11:26 78 06/20/19 11:00 78 19 130/61 (84) 100 06/20/19 10:00 81 15 123/58 (79) 96 06/20/19 09:34 87 144/55 06/20/19 09:00 84 23 140/55 (83) 93 06/20/19 08:30 90 142/53 06/20/19 08:17 76 06/20/19 08:09 82 18 98 Venturi Mask 10.0 45 06/20/19 08:08 98 Venturi Mask 10.0 45 06/20/19 08:00 98.0 88 20 142/53 (82) 97 06/20/19 08:00 Bi-pap 06/20/19 07:00 81 19 122/56 (78) 96 06/20/19 06:00 84 19 129/56 (80) 95 06/20/19 05:00 77 19 136/79 (98) 95 06/20/19 04:41 79 22 127/61 (83) 95 06/20/19 04:00 98.2 79 22 127/61 (83) 95 06/20/19 04:00 Bi-pap 06/20/19 04:00 76 06/20/19 03:02 81 20 130/64 (86) 06/20/19 02:58 99.0 06/20/19 02:00 83 20 141/59 (86) 100 06/20/19 01:38 85 28 126/69 (88) 87 06/20/19 01:00 85 28 126/69 (88) 87 06/20/19 00:12 80 20 98 35 06/20/19 00:00 99.0 81 20 138/54 (82) 96 06/20/19 00:00 83 06/20/19 00:00 Bi-pap 06/19/19 23:00 85 25 114/46 (68) 90 06/19/19 22:21 99.1 06/19/19 22:00 93 29 131/68 (89) 98 06/19/19 21:31 99.2 98 111/60 (77) 06/19/19 21:00 98 111/60 (77) 06/19/19 20:00 100.2 95 25 117/57 (77) 96 06/19/19 20:00 108 06/19/19 20:00 Bi-pap 06/19/19 20:00 35 06/19/19 19:06 94 Nasal Cannula 2.0 28 2/27/20 19:00 107 25 113/61 (78) 93 06/19/19 18:00 106 26 83/45 (58) 92 06/19/19 17:00 115 26 102/87 (92) 97 06/19/19 16:00 Bi-pap 06/19/19 16:00 98.0 109 27 91/59 (70) 98 Height (Feet): 5 Height (Inches): 7.00 Weight (Pounds): 211 General Appearance: no acute distress HEENT: normocephalic, atraumatic, anicteric, mucous membranes moist Respiratory/Chest: crackles/rales, rhonchi - bilaterally Cardiovascular: normal rate, regular rhythm, no gallop/murmur, no JVD Abdomen: normal bowel sounds, soft, non tender, no organomegaly, non distended Genitourinary: other - + contreras - urine slt cloudy Extremities: no cyanosis Skin: no rash Neurologic/Psychiatric: system manager II-XII grossly normal, alert, oriented x 3, responsive Lymphatic: no neck adenopathy Musculoskeletal: no effusion Objective Chest x-ray - 06/17/19 - Procedure: XRAY Chest 1v Indication: Dyspnea Comparison: 06/15/2019 A single view chest radiograph was obtained. Findings: Pulmonary vascular interstitial prominence demonstrated with cardiomegaly. There is a left-sided PICC line with the tip projected over the SVC. Old right clavicle fracture noted. IMPRESSION: Mild CHF CT abdomen and pelvis - 06/15/19 - Impression: Unilocular left upper quadrant cystic mass adjacent to the tail of pancreas and the greater curvature of the stomach. Favor pancreatic pseudocyst, particularly in view of evidence of pancreatic atrophy. However, cystic neoplasm of pancreatic, gastric, or other origin also possible. Consider contrast MRI for better characterization Small ventral hernia containing a single small loop of small bowel, no definite obstruction or strangulation related to such Mildly distended proximal small bowel with slow forward transit of ingested contrast. Suspect ileus or enteritis, although early/partial small bowel obstruction also possible. Correlate with clinical findings Mild distal soft tissue wall thickening, esophagitis possible. Correlate with clinical findings Bilateral basilar pulmonary parenchymal infiltrates versus edema, fairly extensive Cardiomegaly. Apparent bladder wall thickening. Probably an artifact of lack of distention, but cystitis also possible Nonspecific bilateral perinephric fat stranding. Suspect chronic although acute renal inflammation also possible Chest x-ray - 06/20/19 - Procedure: XRAY Chest 1v Indication: Cough Technique: One view of the chest Comparison: 06/19/2019 Findings: Right mid and lower lung infiltrates, generalized interstitial congestion persists, unchanged. Cardiomegaly again demonstrated. Impression: Unchanged, over one day, findings as above. CT abdomen and pelvis - 06/20/19 - Impression: Left upper quadrant cystic mass adjacent to the pancreatic tail and greater curvature the stomach, also reported previously, equivocally slightly larger currently. As previously described, most likely a pancreatic pseudocyst. Cystic pancreatic neoplasm also possible Trace ascites. This is a new finding since the prior exam. Bilateral pleural effusions and bilateral pulmonary parenchymal compressive atelectasis. Likewise a new finding since previous study Nonspecific bilateral perinephric fat stranding, also previously reported Bilateral basilar pulmonary interstitial and airspace edema Generalized edema of the subcutaneous fat Portable cardiomegaly Empty bladder with a Contreras catheter Degenerative spondylosis Microbiology Date/Time Source Procedure Growth Status 06/17/19 04:50 Blood Blood Culture - Preliminary NO GROWTH AFTER 48 HOURS Resulted 06/17/19 10:00 Sputum Induced Gram Stain - Final Complete 06/17/19 10:00 Sputum Induced Sputum Culture - Final NO GROWTH AFTER 48 HOURS Complete 06/19/19 10:20 Stool Clostridium difficile Toxin Assay - Final Complete 06/15/19 21:48 Urine,Clean Catch Urine Culture - Final NO GROWTH AFTER 48 HOURS Complete 06/15/19 23:20 Rectum - Final NO CARBAPENEM-RESISTANT ENTEROBACTERI... Complete Microbiology Date/Time Source Procedure Growth Status 06/19/19 10:20 Stool Clostridium difficile Toxin Assay - Final Complete Laboratory Tests Test 06/20/19 05:00 White Blood Count 9.7 K/UL (4.8-10.8) Red Blood Count 3.72 M/UL (4.70-6.10) L Hemoglobin 10.8 G/DL (14.2-18.0) L Hematocrit 31.9 % (42.0-52.0) L Mean Corpuscular Volume 86 FL (80-99) Mean Corpuscular Hemoglobin 29.1 PG (27.0-31.0) Mean Corpuscular Hemoglobin Concent 33.9 G/DL (32.0-36.0) Red Cell Distribution Width 12.7 % (11.6-14.8) Platelet Count 27 K/UL (150-450) L Mean Platelet Volume 15.7 FL (6.5-10.1) H Neutrophils (%) (Auto) % (45.0-75.0) Lymphocytes (%) (Auto) % (20.0-45.0) Monocytes (%) (Auto) % (1.0-10.0) Eosinophils (%) (Auto) % (0.0-3.0) Basophils (%) (Auto) % (0.0-2.0) Differential Total Cells Counted 100 Neutrophils % (Manual) 78 % (45-75) H Lymphocytes % (Manual) 13 % (20-45) L Monocytes % (Manual) 9 % (1-10) Eosinophils % (Manual) 0 % (0-3) Basophils % (Manual) 0 % (0-2) Band Neutrophils 0 % (0-8) Platelet Estimate Decreased L Platelet Morphology Normal Hypochromasia 1+ Sodium Level 144 MMOL/L (136-145) Potassium Level 3.8 MMOL/L (3.5-5.1) Chloride Level 112 MMOL/L (98-107) H Carbon Dioxide Level 19 MMOL/L (21-32) L Anion Gap 13 mmol/L (5-15) Blood Urea Nitrogen 64 mg/dL (7-18) H Creatinine 2.6 MG/DL (0.55-1.30) H Estimat Glomerular Filtration Rate 24.3 mL/min (>60) Glucose Level 151 MG/DL (74-106) H Calcium Level 7.7 MG/DL (8.5-10.1) L Total Bilirubin 0.6 MG/DL (0.2-1.0) Aspartate Amino Transf (AST/SGOT) 32 U/L (15-37) Alanine Aminotransferase (ALT/SGPT) 63 U/L (12-78) Alkaline Phosphatase 87 U/L (46-116) Total Protein 4.6 G/DL (6.4-8.2) L Albumin 1.6 G/DL (3.4-5.0) L Globulin 3.0 g/dL Albumin/Globulin Ratio 0.5 (1.0-2.7) L Amylase Level 110 U/L (25-115) Lipase 1012 U/L (73-393) H Current Medications Medications (Trade) Dose Ordered Sig/Arley Route PRN Reason Start Time Stop Time Status Last Admin Dose Admin Acetaminophen (Tylenol) 650 mg Q4H PRN ORAL Mild Pain (Pain Scale 1-3) 06/15/19 22:45 07/15/19 22:44 06/19/19 21:51 Albumin Human 50 ml @ 50 mls/hr DAILY PRN IV For hypotension 06/17/19 00:00 07/17/19 00:00 Aspirin (ASA) 81 mg DAILY NG 06/20/19 09:00 07/20/19 08:59 Barium Sulfate (Readi-Cat 2) 450 ml NOW PRN ORAL Radiology Procedure 06/20/19 10:00 06/22/19 09:48 Bisacodyl (Dulcolax) 10 mg DAILYPRN PRN RECTAL Constipation 06/15/19 22:45 07/15/19 22:44 Ceftriaxone Sodium 1 gm/ Dextrose 50 ml @ 100 mls/hr Q24H IVPB 06/18/19 17:00 06/25/19 16:59 06/19/19 17:09 Chlorhexidine Gluconate (Mena-Hex 2%) 1 applic DAILY@2000 TOPIC 06/16/19 20:00 07/16/19 19:59 06/19/19 21:50 Dextrose (Dextrose 50%) 25 ml Q30M PRN IV Hypoglycemia 06/16/19 01:00 07/16/19 00:59 Dextrose (Dextrose 50%) 50 ml Q30M PRN IV Hypoglycemia 06/16/19 01:00 07/16/19 00:59 Docusate Sodium (Colace) 100 mg EVERY 12 HOURS ORAL 06/16/19 09:00 07/16/19 08:59 06/19/19 21:51 Doxycycline Hyclate 100 mg/ Dextrose 100 ml @ 100 mls/hr Q12HR IVPB 06/18/19 21:00 06/25/19 20:59 06/20/19 08:32 Hydromorphone HCl (Dilaudid) 0.5 mg Q4H PRN IVP Moderate Pain (Pain Scale 4-6) 06/16/19 04:32 06/23/19 04:31 06/20/19 02:28 Insulin Aspart (NovoLOG) Q6HR SUBQ 06/16/19 06:00 07/16/19 05:59 06/20/19 12:03 Ipratropium Nallen (Atrovent) 500 mcg Q4H PRN HHN Shortness of Breath 06/16/19 16:15 06/21/19 16:14 06/19/19 10:31 Magnesium Hydroxide (Mom) 30 ml HSPRN PRN ORAL Constipation 06/15/19 22:45 07/15/19 22:44 Metoprolol Tartrate (Lopressor) 25 mg Q12HR ORAL 06/20/19 09:00 07/20/19 08:59 06/20/19 09:34 Metronidazole 100 ml @ 100 mls/hr Q8HR IVPB 06/18/19 22:00 06/25/19 21:59 06/20/19 14:29 Ondansetron HCl (Zofran) 4 mg Q6H PRN IVP Nausea & Vomiting 06/15/19 22:45 07/15/19 22:44 Pantoprazole (Protonix) 40 mg DAILY IVP 06/16/19 09:00 07/16/19 08:59 06/20/19 08:32 Phenylephrine HCl 50 mg/Dextrose 250 ml @ 0 mls/hr Q24H IV 06/16/19 08:30 07/16/19 08:29 Pranay Waller MD Jun 20, 2019 16:04
[2019-06-20] MEDS: cefTRIAXone 1 GM in D5W 50 ML IVPB SCH (17:03)
--- NOTE | 2019-06-20 17:30 | NUR ---
NURSE NOTES: Patient's blood glucose was 131 mg/dL. No coverage, will continue to monitor.
--- NOTE | 2019-06-20 17:31 | NUR ---
TRANSFER TO FLOOR: Patient transferred to SDU, per Dr. Reed. Report given to Maira SCHULER. Belongings and medications given to oncoming Nurse. Family and or S/O informed of transfer.
--- NOTE | 2019-06-20 17:32 | NUR ---
NURSE NOTES: Received patient in bed. In no apparent distress. Awake, alert, on nasal cannula at 3LPM. Left upper arm PICC noted. Call light within reach. Will continue plan of care.
[2019-06-20] MEDS ORDERED: Hydromorphone 0.5mg/0.5ml inj IVP PRN (18:08)
[2019-06-20] MEDS ORDERED: Ipratropium 0.02% Inh Soln 2.5ml UD HHN PRN (18:08)
--- NOTE | 2019-06-20 18:09 | NUR ---
TRANSFER TO FLOOR: Patient transferred to SDU, per Dr. Reed. Report given to Maira SCHULER. Belongings and medications given to oncoming Nurse. Family and or S/O informed of transfer. Addendum: 06/20/19 at 1810 by Ted Grant RN Wrong time
--- NOTE | 2019-06-20 19:15 | NUR ---
NURSE NOTES: Received pt from Patricia Bhatia RN. pt is observed resting in bed, eyes open, AO X3, denies pain at this time. pt is on 3 L O2 via NC, tolerating well, no s/sx of respiratory distress noted. registered nurse cardiac shows SR with BBB, no acute distress noted. F/C noted, patent and intact, draining mary urine to gravity. MERRILL PICC noted; dressing dry and intact. bed in lowest position and locked, siderails up X3, call light within reach. will continue to monitor.
--- NOTE | 2019-06-20 19:25 | NUR ---
HAND-OFF: Report given to Ramona Martínez RN.
[2019-06-20] MEDS: Dyna-Hex 2% Top Sol 2oz TOPIC SCH (20:40)
[2019-06-20] MEDS ORDERED: Milk of Magnesia 30ml Ud ORAL PRN (21:00)
[2019-06-21] VITALS: BP 142/67
[2019-06-21 04:00] VITALS: BP 150/70
[2019-06-21] MEDS: NovoLOG Insulin Flexpen SUBQ SCH ×5 (06:00→21:05)
--- NOTE | 2019-06-21 07:40 | NUR ---
HAND-OFF: Report given to Patricia Bhatia RN. pt is in stable condition.
[2019-06-21 08:00] VITALS: BP 146/58
[2019-06-21 08:01] LABS: HEMATOCRIT 34.5 % (42.0-52.0); HEMOGLOBIN 11.4 G/DL (14.2-18.0); MEAN CORPUSCULAR VOLUME 86 FL (80-99); PLATELET COUNT 41 K/UL (150-450); RED CELL DISTRIBUTION WIDTH 12.3 % (11.6-14.8); WHITE BLOOD COUNT 12.9 K/UL (4.8-10.8)
[2019-06-21] MEDS ORDERED: Phenylephrine 50 MG in D5W 245 ML IV SCH (08:30)
--- NOTE | 2019-06-21 08:34 | Hematology/Onc Progress Note ---
Assessment/Plan Assessment/Plan Assessment and recs: # Thrombocytopenia - potential causes multifactorial, in this case due to sepsis , less likely due to heparin --> Hep panel and HIV are negative --> US abd to evaluate for cirrhosis and hsm ordered and none noted --> Peripheral smear ordered to evaluate for blasts /schistocytes --> abx and other meds have been reviewed --> ok for ppx if plt >50k w/ either heparin or lovenox --> Transfuse if Plt < 20k and fever, or if Plt < 10k without fever # 10.7 cm unilocular cystic structure in the left upper quadrant retroperitoneal , corresponding to findings reported on recent CT scan. Most likely represents a pancreatic pseudocyst. --> continue to monitor as per gi --> repeat us or ct in short order, weeks to months to re-eval # DM, ? history of CVA who presented to [facility] with nausea,vomiting. --> a1c goal <8, accuchecks qac/qhs # Septic shock, POA, possible biliary source --> cont ICU level of care --> cont IV hydration --> on abx, as per pulm/cc # Acute hypoxic resp failure without hypercarbia --> Intermittent BiPAP --> continue inhaled bronchodilators # NSTEMI, peak trop of 2, likely due to demand ischemia --> Stop heparin due to thrombocytopenia --> less likely is HIT syndrome --> duplex lower legs is neg # Acute kidney injury on CKD, possible ATN --> Nephrology following # Acute pancreatitis --> hydration # HTN --> cont to hold BP meds # DM type 2 --> ISS # Dvt ppx scds Appreciate consultation and dw Rn Subjective Allergies: Coded Allergies: No Known Allergies (Unverified , 06/02/19) Subjective 06/20: awake and alert, no overnight events, v mask Objective Objective Current Medications Medications (Trade) Dose Ordered Sig/Arley Route PRN Reason Start Time Stop Time Status Last Admin Dose Admin Acetaminophen (Tylenol) 650 mg Q4H PRN ORAL Mild Pain (Pain Scale 1-3) 06/20/19 18:05 07/15/19 18:04 Albumin Human 50 ml @ 50 mls/hr DAILY PRN IV For hypotension 06/20/19 18:09 07/20/19 18:08 Aspirin (ASA) 81 mg DAILY NG 2/29/20 09:00 07/20/19 08:59 Bisacodyl (Dulcolax) 10 mg DAILYPRN PRN RECTAL Constipation 06/20/19 18:07 07/15/19 18:06 Ceftriaxone Sodium 1 gm/ Dextrose 50 ml @ 100 mls/hr Q24H IVPB 06/21/19 17:00 06/25/19 16:59 Chlorhexidine Gluconate (Mena-Hex 2%) 1 applic DAILY@2000 TOPIC 06/20/19 20:00 07/16/19 19:59 06/20/19 20:40 Dextrose (Dextrose 50%) 25 ml Q30M PRN IV Hypoglycemia 06/20/19 18:06 07/16/19 18:05 Dextrose (Dextrose 50%) 50 ml Q30M PRN IV Hypoglycemia 06/20/19 18:06 07/16/19 18:05 Docusate Sodium (Colace) 100 mg EVERY 12 HOURS ORAL 06/20/19 21:00 07/16/19 08:59 Hydromorphone HCl (Dilaudid) 0.5 mg Q4H PRN IVP Moderate Pain (Pain Scale 4-6) 06/20/19 18:08 06/23/19 18:07 Insulin Aspart (NovoLOG) AC+HS SUBQ 06/21/19 11:30 07/20/19 17:59 Ipratropium Clute (Atrovent) 500 mcg Q4H PRN HHN Shortness of Breath 06/20/19 18:08 06/21/19 18:07 Magnesium Hydroxide (Mom) 30 ml HSPRN PRN ORAL Constipation 06/20/19 21:00 07/15/19 20:59 Metoprolol Tartrate (Lopressor) 25 mg Q12HR ORAL 06/20/19 21:00 07/20/19 08:59 06/20/19 20:40 Metronidazole 100 ml @ 100 mls/hr Q8HR IVPB 06/20/19 22:00 06/25/19 21:59 06/21/19 06:28 Ondansetron HCl (Zofran) 4 mg Q6H PRN IVP Nausea & Vomiting 06/20/19 18:06 07/15/19 18:05 Pantoprazole (Protonix) 40 mg DAILY IVP 06/21/19 09:00 07/16/19 08:59 Last 24 Hour Vital Signs Date Time Temp Pulse Resp B/P (MAP) Pulse Ox O2 Delivery O2 Flow Rate FiO2 06/21/19 08:00 99.1 84 22 146/58 (87) 97 06/21/19 08:00 Nasal Cannula 3.0 06/21/19 04:00 Nasal Cannula 3.0 06/21/19 04:00 98.2 74 20 150/70 (96) 94 06/21/19 04:00 84 06/21/19 00:00 Nasal Cannula 3.0 06/21/19 00:00 98.5 77 20 142/67 (92) 96 06/21/19 00:00 75 06/20/19 20:40 80 139/68 06/20/19 20:00 79 06/20/19 20:00 Nasal Cannula 3.0 06/20/19 20:00 97.7 80 20 139/68 (91) 98 06/20/19 19:14 98 Nasal Cannula 2.0 28 06/20/19 19:14 80 18 98 Nasal Cannula 2.0 28 06/20/19 17:25 98.4 79 20 140/67 (91) 97 06/20/19 16:00 97.8 81 19 123/58 (79) 97 06/20/19 16:00 89 06/20/19 16:00 Nasal Cannula 3.0 06/20/19 15:00 76 21 120/56 (77) 98 06/20/19 14:00 75 20 116/54 (74) 94 06/20/19 13:00 73 21 118/58 (78) 94 06/20/19 12:00 Nasal Cannula 3.0 06/20/19 12:00 98.0 74 19 126/59 (81) 100 06/20/19 11:26 78 06/20/19 11:00 78 19 130/61 (84) 100 06/20/19 10:00 81 15 123/58 (79) 96 06/20/19 09:34 87 144/55 06/20/19 09:00 84 23 140/55 (83) 93 06/20/19 08:30 90 142/53 06/20/19 08:17 76 06/20/19 08:09 82 18 98 Venturi Mask 10.0 45 06/20/19 08:08 98 Venturi Mask 10.0 45 06/20/19 08:00 98.0 88 20 142/53 (82) 97 06/20/19 08:00 Nasal Cannula 3.0 06/20/19 07:00 81 19 122/56 (78) 96 06/20/19 06:00 84 19 129/56 (80) 95 06/20/19 05:00 77 19 136/79 (98) 95 06/20/19 04:41 79 22 127/61 (83) 95 06/20/19 04:00 98.2 79 22 127/61 (83) 95 06/20/19 04:00 Bi-pap 06/20/19 04:00 76 06/20/19 03:02 81 20 130/64 (86) 06/20/19 02:58 99.0 06/20/19 02:00 83 20 141/59 (86) 100 06/20/19 01:38 85 28 126/69 (88) 87 06/20/19 01:00 85 28 126/69 (88) 87 06/20/19 00:12 80 20 98 35 06/20/19 00:00 99.0 81 20 138/54 (82) 96 06/20/19 00:00 83 06/20/19 00:00 Bi-pap 06/19/19 23:00 85 25 114/46 (68) 90 06/19/19 22:21 99.1 06/19/19 22:00 93 29 131/68 (89) 98 06/19/19 21:31 99.2 98 111/60 (77) 06/19/19 21:00 98 111/60 (77) 06/19/19 20:00 100.2 95 25 117/57 (77) 96 06/19/19 20:00 108 06/19/19 20:00 Bi-pap 06/19/19 20:00 35 06/19/19 19:06 94 Nasal Cannula 2.0 28 06/19/19 19:00 107 25 113/61 (78) 93 06/19/19 18:00 106 26 83/45 (58) 92 06/19/19 17:00 115 26 102/87 (92) 97 06/19/19 16:00 Bi-pap 06/19/19 16:00 98.0 109 27 91/59 (70) 98 06/19/19 15:29 112 06/19/19 15:00 128 36 98 35 06/19/19 15:00 115 26 114/69 (84) 97 06/19/19 15:00 121 20 94/78 (83) 94 06/19/19 14:30 35 06/19/19 14:00 121 20 94/78 (83) 94 06/19/19 13:10 128 36 98 35 06/19/19 13:00 126 30 104/63 (77) 94 06/19/19 12:00 103 06/19/19 12:00 Bi-pap 06/19/19 12:00 97.8 118 34 137/72 (93) 92 06/19/19 11:00 118 33 162/82 (108) 92 06/19/19 10:36 120 40 96 35 06/19/19 10:29 35 06/19/19 10:00 107 28 116/43 (67) 95 06/19/19 09:00 87 23 116/43 (67) 95 Intake and Output 06/20/19 06/21/19 19:00 07:00 Intake Total 480 ml 160 ml Output Total 1235 ml 1550 ml Balance -755 ml -1390 ml Intake Oral 480 ml 60 ml IV Total 100 ml Output Urine Total 1235 ml 1550 ml # Bowel Movements 3 1 Labs Test 06/18/19 10:30 06/18/19 18:13 06/19/19 01:00 06/19/19 04:15 Activated Partial Thromboplast Time 29 SEC (23-33) 35 SEC (23-33) 43 SEC (23-33) Troponin I 1.907 ng/mL (0.000-0.056) White Blood Count 18.5 K/UL (4.8-10.8) Red Blood Count 3.57 M/UL (4.70-6.10) Hemoglobin 10.3 G/DL (14.2-18.0) Hematocrit 30.6 % (42.0-52.0) Mean Corpuscular Volume 86 FL (80-99) Mean Corpuscular Hemoglobin 28.8 PG (27.0-31.0) Mean Corpuscular Hemoglobin Concent 33.6 G/DL (32.0-36.0) Red Cell Distribution Width 12.5 % (11.6-14.8) Platelet Count 48 K/UL (150-450) Mean Platelet Volume 11.0 FL (6.5-10.1) Neutrophils (%) (Auto) % (45.0-75.0) Lymphocytes (%) (Auto) % (20.0-45.0) Monocytes (%) (Auto) % (1.0-10.0) Eosinophils (%) (Auto) % (0.0-3.0) Basophils (%) (Auto) % (0.0-2.0) Differential Total Cells Counted 100 Neutrophils % (Manual) 85 % (45-75) Lymphocytes % (Manual) 5 % (20-45) Monocytes % (Manual) 2 % (1-10) Eosinophils % (Manual) 0 % (0-3) Basophils % (Manual) 0 % (0-2) Band Neutrophils 8 % (0-8) Platelet Estimate Decreased Platelet Morphology Normal Red Blood Cell Morphology Normal Sodium Level 140 MMOL/L (136-145) Potassium Level 3.9 MMOL/L (3.5-5.1) Chloride Level 109 MMOL/L (98-107) Carbon Dioxide Level 20 MMOL/L (21-32) Anion Gap 11 mmol/L (5-15) Blood Urea Nitrogen 63 mg/dL (7-18) Creatinine 2.6 MG/DL (0.55-1.30) Estimat Glomerular Filtration Rate 24.3 mL/min (>60) Glucose Level 128 MG/DL (74-106) Calcium Level 7.8 MG/DL (8.5-10.1) Total Bilirubin 0.5 MG/DL (0.2-1.0) Aspartate Amino Transf (AST/SGOT) 68 U/L (15-37) Alanine Aminotransferase (ALT/SGPT) 83 U/L (12-78) Alkaline Phosphatase 90 U/L (46-116) Total Protein 5.0 G/DL (6.4-8.2) Albumin 1.7 G/DL (3.4-5.0) Globulin 3.3 g/dL Albumin/Globulin Ratio 0.5 (1.0-2.7) Amylase Level 91 U/L (25-115) Lipase 555 U/L (73-393) Test 06/19/19 08:30 06/19/19 10:20 06/19/19 14:19 06/19/19 15:05 Activated Partial Thromboplast Time 51 SEC (23-33) Troponin I 1.496 ng/mL (0.000-0.056) HIV (1&2) Antibody Rapid Negative (NEGATIVE) Stool Occult Blood Negative (NEGATIVE) Arterial Blood pH 7.298 (7.350-7.450) Arterial Blood Partial Pressure CO2 28.4 mmHg (35.0-45.0) Arterial Blood Partial Pressure O2 71.2 mmHg (75.0-100.0) Arterial Blood HCO3 13.6 mmol/L (22.0-26.0) Arterial Blood Oxygen Saturation 92.7 % (95-100) Arterial Blood Base Excess -11.3 (-2-2) Saul Test Positive D-Dimer 12.27 mg/L FEU (0.00-0.49) Ferritin 502 NG/ML (8-388) Test 06/20/19 05:00 06/21/19 07:25 White Blood Count 9.7 K/UL (4.8-10.8) 12.9 K/UL (4.8-10.8) Red Blood Count 3.72 M/UL (4.70-6.10) 4.00 M/UL (4.70-6.10) Hemoglobin 10.8 G/DL (14.2-18.0) 11.4 G/DL (14.2-18.0) Hematocrit 31.9 % (42.0-52.0) 34.5 % (42.0-52.0) Mean Corpuscular Volume 86 FL (80-99) 86 FL (80-99) Mean Corpuscular Hemoglobin 29.1 PG (27.0-31.0) 28.5 PG (27.0-31.0) Mean Corpuscular Hemoglobin Concent 33.9 G/DL (32.0-36.0) 33.1 G/DL (32.0-36.0) Red Cell Distribution Width 12.7 % (11.6-14.8) 12.3 % (11.6-14.8) Platelet Count 27 K/UL (150-450) 41 K/UL (150-450) Mean Platelet Volume 15.7 FL (6.5-10.1) 11.5 FL (6.5-10.1) Neutrophils (%) (Auto) % (45.0-75.0) % (45.0-75.0) Lymphocytes (%) (Auto) % (20.0-45.0) % (20.0-45.0) Monocytes (%) (Auto) % (1.0-10.0) % (1.0-10.0) Eosinophils (%) (Auto) % (0.0-3.0) % (0.0-3.0) Basophils (%) (Auto) % (0.0-2.0) % (0.0-2.0) Differential Total Cells Counted 100 Neutrophils % (Manual) 78 % (45-75) Lymphocytes % (Manual) 13 % (20-45) Monocytes % (Manual) 9 % (1-10) Eosinophils % (Manual) 0 % (0-3) Basophils % (Manual) 0 % (0-2) Band Neutrophils 0 % (0-8) Platelet Estimate Decreased Platelet Morphology Normal Hypochromasia 1+ Sodium Level 144 MMOL/L (136-145) Potassium Level 3.8 MMOL/L (3.5-5.1) Chloride Level 112 MMOL/L (98-107) Carbon Dioxide Level 19 MMOL/L (21-32) Anion Gap 13 mmol/L (5-15) Blood Urea Nitrogen 64 mg/dL (7-18) Creatinine 2.6 MG/DL (0.55-1.30) Estimat Glomerular Filtration Rate 24.3 mL/min (>60) Glucose Level 151 MG/DL (74-106) Calcium Level 7.7 MG/DL (8.5-10.1) Total Bilirubin 0.6 MG/DL (0.2-1.0) Aspartate Amino Transf (AST/SGOT) 32 U/L (15-37) Alanine Aminotransferase (ALT/SGPT) 63 U/L (12-78) Alkaline Phosphatase 87 U/L (46-116) Total Protein 4.6 G/DL (6.4-8.2) Albumin 1.6 G/DL (3.4-5.0) Globulin 3.0 g/dL Albumin/Globulin Ratio 0.5 (1.0-2.7) Amylase Level 110 U/L (25-115) Lipase 1012 U/L (73-393) Height (Feet): 5 Height (Inches): 7.00 Weight (Pounds): 244 Objective PE General Appearance: no apparent distress, alert HEENT: atraumatic, anicteric Neck: normal alignment, supple Respiratory/Chest: lungs clear, normal breath sounds, no respiratory distress Cardiovascular/Chest: normal rate, regular rhythm Abdomen: non tender, soft, no organomegaly Extremities: non-tender, normal inspection Skin Exam: warm/dry, cyanotic Neurologic: alert Kana Paul MD Jun 21, 2019 08:34
[2019-06-21] MEDS: Docusate 100mg cap ORAL SCH ×2 (08:37→21:00)
[2019-06-21 08:39] LABS: ANION GAP 10 mmol/L (5-15); BLOOD UREA NITROGEN 61 mg/dL (7-18); CALCIUM 8.4 MG/DL (8.5-10.1); CARBON DIOXIDE 23 MMOL/L (21-32); CHLORIDE 110 MMOL/L (98-107); CREATININE 2.3 MG/DL (0.55-1.30); POTASSIUM 4.2 MMOL/L (3.5-5.1); SODIUM 143 MMOL/L (136-145)
[2019-06-21 08:45] LABS: AMYLASE 91 U/L (25-115)
[2019-06-21] MEDS: Aspirin Baby 81mg NG SCH (09:00)
[2019-06-21] MEDS: Pantoprazole Inj IVP SCH (09:32)
[2019-06-21 12:00] VITALS: BP 146/67
[2019-06-21] MEDS ORDERED: NS 275ml ONE ×4 (12:22→12:57)
[2019-06-21] MEDS ORDERED: Tubing IV Secondary IV ONE ×2 (12:22→12:51)
[2019-06-21] MEDS ORDERED: D5NS 1000ml IV ONE (12:51)
[2019-06-21] MEDS ORDERED: NS 500ML ONE (12:51)
[2019-06-21] MEDS ORDERED: Sterile Water Irrig 1000ml IRRIG ONE (12:51)
--- NOTE | 2019-06-21 14:28 | Pulmonology Progress Note ---
Assessment/Plan Problems: (1) Sepsis (2) Hypoxia (3) Left upper quadrant abdominal mass (4) Thrombocytopenia (5) Acute kidney injury superimposed on CKD Assessment/Plan BiPAP PRN and qHS Titrate FiO2 HHN's Monitor volumes and renal function ABx per ID, F/U Cx's F/U cards recs ? ischemia eval once acute issues resolve F/U GI recs, F/U CA-19-9 Monitor platelets, F/U HIT Ab panel Cautious PO only when off BiPAP with STRICT ASPIRATION precautions In the future should have a CT chest (screening) when acute issues resolve DVT Px: SCD's FC Subjective Allergies: Coded Allergies: No Known Allergies (Unverified , 06/02/19) Subjective AFVSS O2 needs stable TTF did not use BiPAP Weak cough no SOB no FC no CP Objective Last 24 Hour Vital Signs Date Time Temp Pulse Resp B/P (MAP) Pulse Ox O2 Delivery O2 Flow Rate FiO2 06/21/19 12:00 Nasal Cannula 3.0 06/21/19 12:00 99.4 78 23 146/67 (93) 96 06/21/19 11:46 77 06/21/19 09:32 84 146/58 06/21/19 08:00 87 06/21/19 08:00 99.1 84 22 146/58 (87) 97 06/21/19 08:00 Nasal Cannula 3.0 06/21/19 07:50 98 Nasal Cannula 2.0 28 06/21/19 07:50 82 18 98 Nasal Cannula 2.0 28 06/21/19 04:00 Nasal Cannula 3.0 06/21/19 04:00 98.2 74 20 150/70 (96) 94 06/21/19 04:00 84 06/21/19 00:00 Nasal Cannula 3.0 06/21/19 00:00 98.5 77 20 142/67 (92) 96 06/21/19 00:00 75 06/20/19 20:40 80 139/68 06/20/19 20:00 79 06/20/19 20:00 Nasal Cannula 3.0 06/20/19 20:00 97.7 80 20 139/68 (91) 98 06/20/19 19:14 98 Nasal Cannula 2.0 28 06/20/19 19:14 80 18 98 Nasal Cannula 2.0 28 06/20/19 17:25 98.4 79 20 140/67 (91) 97 06/20/19 16:00 97.8 81 19 123/58 (79) 97 06/20/19 16:00 89 06/20/19 16:00 Nasal Cannula 3.0 06/20/19 15:00 76 21 120/56 (77) 98 Intake and Output 06/20/19 06/21/19 19:00 07:00 Intake Total 480 ml 160 ml Output Total 1235 ml 1550 ml Balance -755 ml -1390 ml Intake Oral 480 ml 60 ml IV Total 100 ml Output Urine Total 1235 ml 1550 ml # Bowel Movements 3 1 General Appearance: no acute distress, other - obese HEENT: normocephalic, atraumatic, anicteric, mucous membranes moist Respiratory/Chest: chest wall non-tender, lungs clear, normal breath sounds, no respiratory distress, rhonchi Cardiovascular: normal peripheral pulses, normal rate, regular rhythm Abdomen: normal bowel sounds, soft, non tender, no organomegaly, non distended , no mass Extremities: no cyanosis, no clubbing, no edema Microbiology Date/Time Source Procedure Growth Status 06/19/19 10:20 Stool Stool Culture - Preliminary NORMAL FECAL LANEY. Resulted 06/19/19 10:20 Stool Clostridium difficile Toxin Assay - Final Complete Laboratory Tests 06/21/19 07:25: White Blood Count 12.9H, Red Blood Count 4.00L, Hemoglobin 11.4L, Hematocrit 34.5L, Mean Corpuscular Volume 86, Mean Corpuscular Hemoglobin 28.5, Mean Corpuscular Hemoglobin Concent 33.1, Red Cell Distribution Width 12.3, Platelet Count 41#L, Mean Platelet Volume 11.5H, Neutrophils (%) (Auto) , Lymphocytes (% ) (Auto) , Monocytes (%) (Auto) , Eosinophils (%) (Auto) , Basophils (%) (Auto) , Differential Total Cells Counted 100, Neutrophils % (Manual) 77H, Lymphocytes % (Manual) 8L, Monocytes % (Manual) 12H, Eosinophils % (Manual) 2, Basophils % ( Manual) 1, Band Neutrophils 0, Platelet Estimate DecreasedL, Platelet Morphology Normal, Hypochromasia 1+, Anisocytosis 1+, Sodium Level 143, Potassium Level 4.2, Chloride Level 110H, Carbon Dioxide Level 23, Anion Gap 10 , Blood Urea Nitrogen 61H, Creatinine 2.3H, Estimat Glomerular Filtration Rate 28.0, Glucose Level 121H, Calcium Level 8.4L, Amylase Level 91, Lipase 533H Current Medications Medications (Trade) Dose Ordered Sig/Arley Route PRN Reason Start Time Stop Time Status Last Admin Dose Admin Acetaminophen (Tylenol) 650 mg Q4H PRN ORAL Mild Pain (Pain Scale 1-3) 06/20/19 18:05 07/15/19 18:04 Albumin Human 50 ml @ 50 mls/hr DAILY PRN IV For hypotension 06/20/19 18:09 07/20/19 18:08 Aspirin (ASA) 81 mg DAILY NG 06/21/19 09:00 07/20/19 08:59 Bisacodyl (Dulcolax) 10 mg DAILYPRN PRN RECTAL Constipation 06/20/19 18:07 07/15/19 18:06 Ceftriaxone Sodium 1 gm/ Dextrose 50 ml @ 100 mls/hr Q24H IVPB 06/21/19 17:00 06/25/19 16:59 Chlorhexidine Gluconate (Mena-Hex 2%) 1 applic DAILY@2000 TOPIC 06/20/19 20:00 07/16/19 19:59 06/20/19 20:40 Dextrose (Dextrose 50%) 25 ml Q30M PRN IV Hypoglycemia 06/20/19 18:06 07/16/19 18:05 Dextrose (Dextrose 50%) 50 ml Q30M PRN IV Hypoglycemia 06/20/19 18:06 07/16/19 18:05 Docusate Sodium (Colace) 100 mg EVERY 12 HOURS ORAL 06/20/19 21:00 07/16/19 08:59 Hydromorphone HCl (Dilaudid) 0.5 mg Q4H PRN IVP Moderate Pain (Pain Scale 4-6) 06/20/19 18:08 06/23/19 18:07 Insulin Aspart (NovoLOG) AC+HS SUBQ 06/21/19 11:30 07/20/19 17:59 Ipratropium Baldwin (Atrovent) 500 mcg Q4H PRN HHN Shortness of Breath 06/20/19 18:08 06/21/19 18:07 Magnesium Hydroxide (Mom) 30 ml HSPRN PRN ORAL Constipation 06/20/19 21:00 3/24/20 20:59 Metoprolol Tartrate (Lopressor) 25 mg Q12HR ORAL 06/20/19 21:00 07/20/19 08:59 06/21/19 09:32 Metronidazole 100 ml @ 100 mls/hr Q8HR IVPB 06/20/19 22:00 06/25/19 21:59 06/21/19 14:18 Ondansetron HCl (Zofran) 4 mg Q6H PRN IVP Nausea & Vomiting 06/20/19 18:06 07/15/19 18:05 Pantoprazole (Protonix) 40 mg DAILY IVP 06/21/19 09:00 07/16/19 08:59 06/21/19 09:32 Homero Moran MD Jun 21, 2019 14:28
[2019-06-21 16:00] VITALS: BP 145/82
[2019-06-21] MEDS: cefTRIAXone 1 GM in D5W 50 ML IVPB SCH (16:34)
--- NOTE | 2019-06-21 19:10 | NUR ---
NURSE NOTES: Pt report received from BRITT SCHULER. pt remains stable. pt is alert and oriented times 4, able to follow commands. pt is on 3 L NC, able to sat at 99% no signs symptoms of acute resp distress noted. pt is on telemetry monitor showing SR BBB no acute signs symptoms of acute cardiac distress noted. pt bed is low, locked, armed, call light within reach, bed rails up times 3. will follow plan of care.
--- NOTE | 2019-06-21 19:15 | NUR ---
HAND-OFF: Report given to Mariah Ly RN.
--- NOTE | 2019-06-21 19:44 | General Progress Note ---
Assessment/Plan Status: stable Assessment/Plan: 73 year old man with HTN, IDDM, ? history of CVA who presented to [facility] with nausea,vomiting. #septic shock, POA #Klebsiella bacteremia -ICU --> [facility] -Stopped IV fluids due to hypoxemia -cont antibiotics as per ID recs -ID following #acute hypoxic resp failure without hypercarbia -intermittent BiPAP -continue inhaled bronchodilators -repeat CXR pedning -Pulm/CCM following -bipap prn and QHS #NSTEMI, peak trop of 2, likely due to demand ischemia -Stop heparin due to thrombocytopenia -Cardiology following #acute kidney injury on CKD, possible ATN -IV hydration stopped as above -Nephrology following -monitor BMP -avoid nephrotoxic meds #acute pancreatitis -Advance diet as per GI -? Need for EUS #Thrombocytopenia, no active bleeding noted -off heparin -transfuse for Platelets < 20K -cont to monitor daily CBC -Hematology consult appreciated #Hypokalemia, hypomagnesemia -replace and monitor labs #lactic acidosis #HTN -cont to hold BP meds #DM type 2 -ISS VTE PPx Heparin Full Code I spent an additional 35 minutes in reviewing the chart, imagining and labs Subjective Date patient seen: Jun 21, 2019 ROS Limited/Unobtainable: No Constitutional: Denies: no symptoms, chills, diaphoresis, fever, malaise, weakness, other HEENT: Denies: no symptoms, eye pain, blurred vision, tearing, double vision, ear pain, ear discharge, nose pain, nose congestion, throat pain, throat swelling, mouth pain, mouth swelling, other Cardiovascular: Denies: no symptoms, chest pain, edema, irregular heart rate, lightheadedness, palpitations, syncope, other Respiratory: Denies: no symptoms, cough, orthopnea, shortness of breath, SOB with excertion, SOB at rest, sputum, stridor, wheezing, other Gastrointestinal/Abdominal: Denies: no symptoms, abdomen distended, abdominal pain, black stools, tarry stools, blood in stool, constipated, diarrhea, difficulty swallowing, nausea, poor appetite, poor fluid intake, rectal bleeding , vomiting, other Genitourinary: Denies: no symptoms, burning, discharge, frequency, flank pain, hematuria, incontinence, pain, urgency, other Neurologic/Psychiatric: Denies: no symptoms, anxiety, depressed, emotional problems, headache, numbness, paresthesia, pre-existing deficit, seizure, tingling, tremors, weakness, other Endocrine: Denies: no symptoms, excessive sweating, flushing, intolerance to cold, intolerance to heat, increased hunger, increased thirst, increased urine, unexplained weight gain, unexplained weight loss, other Hematologic/Lymphatic: Denies: no symptoms, anemia, easy bleeding, easy bruising, other Allergies: Coded Allergies: No Known Allergies (Unverified , 06/02/19) Subjective no acute events, lying flat, nc on, no respiratory distress. alert and oriented x4. denies sob, chest pain, palpitations Objective Last 24 Hour Vital Signs Date Time Temp Pulse Resp B/P (MAP) Pulse Ox O2 Delivery O2 Flow Rate FiO2 06/21/19 16:00 99.2 81 21 145/82 (103) 97 06/21/19 16:00 Nasal Cannula 3.0 06/21/19 15:21 77 06/21/19 12:00 Nasal Cannula 3.0 06/21/19 12:00 99.4 78 23 146/67 (93) 96 06/21/19 11:46 77 06/21/19 09:32 84 146/58 06/21/19 08:00 87 06/21/19 08:00 99.1 84 22 146/58 (87) 97 06/21/19 08:00 Nasal Cannula 3.0 06/21/19 07:50 98 Nasal Cannula 2.0 28 06/21/19 07:50 82 18 98 Nasal Cannula 2.0 28 06/21/19 04:00 Nasal Cannula 3.0 06/21/19 04:00 98.2 74 20 150/70 (96) 94 06/21/19 04:00 84 06/21/19 00:00 Nasal Cannula 3.0 06/21/19 00:00 98.5 77 20 142/67 (92) 96 06/21/19 00:00 75 06/20/19 20:40 80 139/68 06/20/19 20:00 79 06/20/19 20:00 Nasal Cannula 3.0 06/20/19 20:00 97.7 80 20 139/68 (91) 98 Intake and Output 06/20/19 06/21/19 19:00 07:00 Intake Total 480 ml 160 ml Output Total 1235 ml 1550 ml Balance -755 ml -1390 ml Intake Oral 480 ml 60 ml IV Total 100 ml Output Urine Total 1235 ml 1550 ml # Bowel Movements 3 1 Laboratory Tests 06/21/19 07:25: White Blood Count 12.9H, Red Blood Count 4.00L, Hemoglobin 11.4L, Hematocrit 34.5L, Mean Corpuscular Volume 86, Mean Corpuscular Hemoglobin 28.5, Mean Corpuscular Hemoglobin Concent 33.1, Red Cell Distribution Width 12.3, Platelet Count 41#L, Mean Platelet Volume 11.5H, Neutrophils (%) (Auto) , Lymphocytes (% ) (Auto) , Monocytes (%) (Auto) , Eosinophils (%) (Auto) , Basophils (%) (Auto) , Differential Total Cells Counted 100, Neutrophils % (Manual) 77H, Lymphocytes % (Manual) 8L, Monocytes % (Manual) 12H, Eosinophils % (Manual) 2, Basophils % ( Manual) 1, Band Neutrophils 0, Platelet Estimate DecreasedL, Platelet Morphology Normal, Hypochromasia 1+, Anisocytosis 1+, Sodium Level 143, Potassium Level 4.2, Chloride Level 110H, Carbon Dioxide Level 23, Anion Gap 10 , Blood Urea Nitrogen 61H, Creatinine 2.3H, Estimat Glomerular Filtration Rate 28.0, Glucose Level 121H, Calcium Level 8.4L, Amylase Level 91, Lipase 533H Height (Feet): 5 Height (Inches): 7.00 Weight (Pounds): 244 Objective General Appearance: no acute distress, obese HEENT: normocephalic, atraumatic, anicteric, mucous membranes moist Respiratory/Chest: chest wall non-tender, lungs clear, normal breath sounds, no respiratory distress, rhonchi Cardiovascular: normal peripheral pulses, normal rate, regular rhythm Abdomen: normal bowel sounds, soft, non tender, no organomegaly, non distended , no mass Extremities: no cyanosis, no clubbing, no edema Jn Beard M.D. Jun 21, 2019 19:44
[2019-06-21 20:00] VITALS: BP 146/67
--- NOTE | 2019-06-21 20:30 | NUR ---
NURSE NOTES: SPOKE with Doctor Gray in person. she stated pt does not need BIPAP HS anymore. however, doctor stated to just have original orders for BIPAP, just change order to PRN.
[2019-06-21] MEDS: Dyna-Hex 2% Top Sol 2oz TOPIC SCH (21:06)
[2019-06-22] VITALS: BP 150/70
--- NOTE | 2019-06-22 03:04 | NUR ---
NURSE NOTES: Pt Finger stick BS is 159.
[2019-06-22 03:55] LABS: HEMATOCRIT 36.4 % (42.0-52.0); HEMOGLOBIN 12.4 G/DL (14.2-18.0); MEAN CORPUSCULAR VOLUME 85 FL (80-99); PLATELET COUNT 49 K/UL (150-450); RED CELL DISTRIBUTION WIDTH 12.1 % (11.6-14.8); WHITE BLOOD COUNT 13.8 K/UL (4.8-10.8)
[2019-06-22 04:00] VITALS: BP 129/53
[2019-06-22 04:19] LABS: ANION GAP 15 mmol/L (5-15); BLOOD UREA NITROGEN 50 mg/dL (7-18); CARBON DIOXIDE 20 MMOL/L (21-32); CHLORIDE 113 MMOL/L (98-107); CREATININE 2.2 MG/DL (0.55-1.30); POTASSIUM 3.8 MMOL/L (3.5-5.1); SODIUM 147 MMOL/L (136-145)
--- NOTE | 2019-06-22 04:49 | NUR ---
NURSE NOTES: called doctor RACHELL office to report ABG results. Doctor BALTAZAR, called back. reported ABG results again to Doctor Akhtar (please refer to ABGs 06/22/19 0300). no new orders.
[2019-06-22] MEDS: NovoLOG Insulin Flexpen SUBQ SCH ×4 (05:49→20:53)
--- NOTE | 2019-06-22 06:17 | NUR ---
NURSE NOTES: Pt refused BIPAP. called RT to place pt back on Nasal Canula.
--- NOTE | 2019-06-22 07:06 | NUR ---
NURSE NOTES: Received report from Ramírez RN. Pt in bed awake and oriented x3. PICC site in left upper arm with 2 lumen and the dressing dry and intact. One lumen of PICC not working report from previous shift RN. Will f/u with with MD for PICC removal. On F/C 16fr for urinary retention patent and intact and noted yellow colored urine in drainage bag. Bed in lowest position and locked. Call light within easy reach. Side railsx3 up for safety. On O2 3LPM via v/c saturating with 93-95%. Will continue to plan of care.
--- NOTE | 2019-06-22 07:06 | NUR ---
HAND-OFF: Report given to Maira Richards RN. Pt remains stable.
[2019-06-22 08:00] VITALS: BP 104/65
--- NOTE | 2019-06-22 08:11 | NUR ---
RESPIRATORY NOTE: ABG drawn. Results posted.
[2019-06-22] MEDS: Pantoprazole Inj IVP SCH (08:50)
[2019-06-22] MEDS: Docusate 100mg cap ORAL SCH (08:52)
[2019-06-22] MEDS: Aspirin Baby 81mg NG SCH (08:53)
--- NOTE | 2019-06-22 10:06 | Cardiology Progress Note ---
Assessment/Plan Status: stable Assessment/Plan Assessment/Plan 73 year old man with HTN, IDDM, ? history of CVA who presented [place] [facility] with nausea,vomiting and hypertensive urgency and SOB -Empiric ABX and IV fluids -> WBC now normal, no fevers, cultures negative -BiPAP prn, continue pulmonary rehab/toilet/CPT, serial chest x ray -V/Q and LE US negative for thrombus, CXR with cardiomegaly and interstitial prominence -Echocardiogram with LVEF 40% and PA pressure 55 mmHG and elevated right atrial pressures. -Continue diuresis to lower filling pressures, recommend repeating liited Echocardiogram once dry weight achieved to re-evaluate pulmonary/filling pressures -BP mildly elevated and now off pressors, will need to start SEAN/BB for systolic dysfunction. (ACEI held for ZARINA) Continue low dose metoprolol 25 mg BID for systolic dysfunction and titrate -Start aldactone when creatinine <1.5 -Stress test prior to discharge when pulmonary status stable. -Defer cardiac cath given lack of chest pain and renal function -D/c troponin check, d/c anticoagulation given low platelets, no indication for transfusion no bleeding noted -Transfer to floor Subjective Cardiovascular: Reports: no symptoms Respiratory: Reports: no symptoms Gastrointestinal/Abdominal: Reports: no symptoms Genitourinary: Reports: no symptoms Subjective Patient stable in [facility], has not been using BiPAP, sodium levels increase, renal function slowly improving. No chest pain, vitals stable, platelet count stable at 40k Objective Last 24 Hour Vital Signs Date Time Temp Pulse Resp B/P (MAP) Pulse Ox O2 Delivery O2 Flow Rate FiO2 06/22/19 08:53 89 104/65 06/22/19 08:00 98.1 89 20 104/65 (78) 96 89 06/22/19 05:29 101 37 98 35 06/22/19 04:00 105 06/22/19 04:00 Bi-pap 06/22/19 04:00 97.8 108 22 129/53 (78) 98 108 06/22/19 02:30 110 37 96 35 06/22/19 00:00 Nasal Cannula 3.0 06/22/19 00:00 78 06/22/19 00:00 98.4 95 21 150/70 (96) 98 78 06/21/19 22:00 3.0 06/21/19 21:06 81 146/67 06/21/19 20:00 97.5 81 21 146/67 (93) 98 06/21/19 20:00 Nasal Cannula 3.0 06/21/19 20:00 71 06/21/19 19:00 97 Nasal Cannula 2.0 28 06/21/19 19:00 80 18 97 Nasal Cannula 2.0 28 06/21/19 16:00 99.2 81 21 145/82 (103) 97 06/21/19 16:00 Nasal Cannula 3.0 06/21/19 15:21 77 06/21/19 12:00 Nasal Cannula 3.0 06/21/19 12:00 99.4 78 23 146/67 (93) 96 06/21/19 11:46 77 General Appearance: no apparent distress, alert EENT: PERRL/EOMI, normal ENT inspection, TMs normal, pharynx normal Neck: non-tender, normal alignment, supple Rhythm: NSR Cardiovascular: normal peripheral pulses, normal rate, regular rhythm Respiratory/Chest: decreased breath sounds, crackles/rales, rhonchi - bilaterally Abdomen: normal bowel sounds, non tender, soft, no organomegaly, no mass Extremities: normal range of motion, non-tender, normal inspection, no calf tenderness, no swelling Neurologic: release of information specialist II-XII grossly normal, no motor/sensory deficits Intake and Output 06/21/19 06/22/19 19:00 07:00 Intake Total 720 ml 100 ml Output Total 1700 ml 1100 ml Balance -980 ml -1000 ml Intake Oral 520 ml IV Total 200 ml 100 ml Output Urine Total 1700 ml 1100 ml # Bowel Movements 1 2 Laboratory Tests Test 06/22/19 02:49 06/22/19 03:24 06/22/19 08:11 Arterial Blood pH 7.376 (7.350-7.450) 7.430 (7.350-7.450) Arterial Blood Partial Pressure CO2 27.7 mmHg (35.0-45.0) L 29.2 mmHg (35.0-45.0) L Arterial Blood Partial Pressure O2 79.9 mmHg (75.0-100.0) 63.1 mmHg (75.0-100.0) L Arterial Blood HCO3 15.9 mmol/L (22.0-26.0) *L 18.9 mmol/L (22.0-26.0) L Arterial Blood Oxygen Saturation 94.8 % (95-100) L 91.8 % (95-100) L Arterial Blood Base Excess -7.8 (-2-2) L -4.3 (-2-2) L Saul Test Positive Positive White Blood Count 13.8 K/UL (4.8-10.8) H Red Blood Count 4.30 M/UL (4.70-6.10) L Hemoglobin 12.4 G/DL (14.2-18.0) L Hematocrit 36.4 % (42.0-52.0) L Mean Corpuscular Volume 85 FL (80-99) Mean Corpuscular Hemoglobin 28.8 PG (27.0-31.0) Mean Corpuscular Hemoglobin Concent 34.0 G/DL (32.0-36.0) Red Cell Distribution Width 12.1 % (11.6-14.8) Platelet Count 49 K/UL (150-450) L Mean Platelet Volume 13.0 FL (6.5-10.1) H Neutrophils (%) (Auto) % (45.0-75.0) Lymphocytes (%) (Auto) % (20.0-45.0) Monocytes (%) (Auto) % (1.0-10.0) Eosinophils (%) (Auto) % (0.0-3.0) Basophils (%) (Auto) % (0.0-2.0) Neutrophils % (Manual) Pending Lymphocytes % (Manual) Pending Platelet Estimate Pending Platelet Morphology Pending Sodium Level 147 MMOL/L (136-145) H Potassium Level 3.8 MMOL/L (3.5-5.1) Chloride Level 113 MMOL/L (98-107) H Carbon Dioxide Level 20 MMOL/L (21-32) L Anion Gap 15 mmol/L (5-15) Blood Urea Nitrogen 50 mg/dL (7-18) H Creatinine 2.2 MG/DL (0.55-1.30) H Estimat Glomerular Filtration Rate 29.5 mL/min (>60) Glucose Level 158 MG/DL (74-106) H Calcium Level 8.0 MG/DL (8.5-10.1) L Microbiology Date/Time Source Procedure Growth Status 06/19/19 10:20 Stool Stool Culture - Preliminary NORMAL FECAL LANEY. Resulted 06/19/19 10:20 Stool Clostridium difficile Toxin Assay - Final Complete Paul Reed MD Jun 22, 2019 10:06
--- NOTE | 2019-06-22 10:23 | NUR ---
RD ASSESSMENT & RECOMMENDATIONS SEE CARE ACTIVITY FOR COMPLETE ASSESSMENT DAILY ESTIMATED NEEDS: Needs based on Obese, pulmonary, 78kg abw 20-25 kcals/kg 4409-0516 total kcals 1-1.5 g protein/kg 78-117 g total protein 20-30ml/kcal mL/kg 2038-0253 total fluid mLs NUTRITION DIAGNOSIS: Decreased fat needs r/t acute pancreatitis as evidenced by elevated lipase, now trending down (533), pt is obese class II. CURRENT DIET: Full liquid PO DIET RECOMMENDATIONS: Advance as able to LOW FAT diet / texture per HOMICIDE SQUAD LIE[place]NT ADDITIONAL RECOMMENDATIONS: 1) Rec HgA1C for eval, pt w/ elev BG (151-158) -> need for carb control diet? 2) Calibrated bed scale wts 3) Monitor for ability to advance diet
[2019-06-22 12:00] VITALS: BP 112/59
--- NOTE | 2019-06-22 15:59 | Infectious Diseases Prog Note ---
Assessment/Plan Assessment/Plan 1. klebsiella bacteremia, sepsis, shock, pna vs chf, ? cap, aspiration risk, leukocytosis, pancreatitis, pseudocyst, ct noted, ? uti lgt and worsening - ceftriaxone and flagyl - day # 7 abx - recheck cultures, add vancomycin to cover line - consider remove picc line since it is clotted - f/u on labs and chest x-ray, CT noted - legionella urine antigen negative, mycoplasma igm wnl, sc-ng - becca care - continue treatment per primary care team and consultants - clinically improved, shock resolved, surveillance blood cultures negative 2. Shock - improved, off pressors 3. Shortness of breath, hypoxia, on BiPAP - improved, off pressors 4. Pulmonary followup. 5. Acute renal failure. 6. Anemia. 7. Diabetes. 8. Hypertension. 9. Blood sugar and blood pressure treatment per primary care team. 10. Possible CVA history. 11. No known drug allergies. 12. Social history is negative. 13. Family history is noncontributory. 14. MAR was noted. 15. Case discussed with RN. 16. Continue treatment per primary consultants. 17. ICU care. 18. Skin care protocol. 19. Orders were noted and entered. 20. GI followup. Subjective Constitutional: Denies: fever HEENT: Reports: congestion - mild but improved Respiratory: Reports: shortness of breath - mild but improved Cardiovascular: Denies: chest pain Gastrointestinal/Abdominal: Denies: nausea, vomiting, diarrhea Genitourinary: Reports: other - + contreras Neurologic: Denies: headache Psychiatric: Denies: depression Skin: Denies: rash Hematologic: Denies: bleeding Musculoskeletal: Denies: pain Allergies: Coded Allergies: No Known Allergies (Unverified , 06/02/19) Objective Vital Signs Last 24 Hour Vital Signs Date Time Temp Pulse Resp B/P (MAP) Pulse Ox O2 Delivery O2 Flow Rate FiO2 06/22/19 12:00 Nasal Cannula 3.0 06/22/19 12:00 88 06/22/19 12:00 98.1 96 21 112/59 (76) 97 06/22/19 08:53 89 104/65 06/22/19 08:00 98.1 89 20 104/65 (78) 96 89 06/22/19 08:00 Bi-pap 06/22/19 08:00 89 06/22/19 07:00 90 19 95 Nasal Cannula 2.0 28 06/22/19 07:00 95 Nasal Cannula 2.0 28 06/22/19 05:29 101 37 98 35 06/22/19 04:00 105 06/22/19 04:00 Bi-pap 06/22/19 04:00 97.8 108 22 129/53 (78) 98 108 06/22/19 02:30 110 37 96 35 06/22/19 00:00 Nasal Cannula 3.0 06/22/19 00:00 78 06/22/19 00:00 98.4 95 21 150/70 (96) 98 78 06/21/19 22:00 3.0 06/21/19 21:06 81 146/67 06/21/19 20:00 97.5 81 21 146/67 (93) 98 06/21/19 20:00 Nasal Cannula 3.0 06/21/19 20:00 71 06/21/19 19:00 97 Nasal Cannula 2.0 28 06/21/19 19:00 80 18 97 Nasal Cannula 2.0 28 06/21/19 16:00 99.2 81 21 145/82 (103) 97 06/21/19 16:00 Nasal Cannula 3.0 Height (Feet): 5 Height (Inches): 7.00 Weight (Pounds): 241 General Appearance: no acute distress HEENT: normocephalic, atraumatic, anicteric, mucous membranes moist Respiratory/Chest: lungs clear, normal breath sounds, no respiratory distress, no accessory muscle use Cardiovascular: normal rate, regular rhythm, no gallop/murmur, no JVD Abdomen: normal bowel sounds, soft, non tender, no organomegaly, non distended Genitourinary: other Extremities: no cyanosis Skin: no rash 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 Findings: Pulmonary vascular interstitial prominence demonstrated with cardiomegaly. There is a left-sided PICC line with the tip projected over the SVC. Old right clavicle fracture noted. IMPRESSION: Mild CHF CT abdomen and pelvis - 06/15/19 - Impression: Unilocular left upper quadrant cystic mass adjacent to the tail of pancreas and the greater curvature of the stomach. Favor pancreatic pseudocyst, particularly in view of evidence of pancreatic atrophy. However, cystic neoplasm of pancreatic, gastric, or other origin also possible. Consider contrast MRI for better characterization Small ventral hernia containing a single small loop of small bowel, no definite obstruction or strangulation related to such Mildly distended proximal small bowel with slow forward transit of ingested contrast. Suspect ileus or enteritis, although early/partial small bowel obstruction also possible. Correlate with clinical findings Mild distal soft tissue wall thickening, esophagitis possible. Correlate with clinical findings Bilateral basilar pulmonary parenchymal infiltrates versus edema, fairly extensive Cardiomegaly. Apparent bladder wall thickening. Probably an artifact of lack of distention, but cystitis also possible Nonspecific bilateral perinephric fat stranding. Suspect chronic although acute renal inflammation also possible Chest x-ray - 06/20/19 - Procedure: XRAY Chest 1v Indication: Cough Technique: One view of the chest Comparison: 06/19/2019 Findings: Right mid and lower lung infiltrates, generalized interstitial congestion persists, unchanged. Cardiomegaly again demonstrated. Impression: Unchanged, over one day, findings as above. CT abdomen and pelvis - 06/20/19 - Impression: Left upper quadrant cystic mass adjacent to the pancreatic tail and greater curvature the stomach, also reported previously, equivocally slightly larger currently. As previously described, most likely a pancreatic pseudocyst. Cystic pancreatic neoplasm also possible Trace ascites. This is a new finding since the prior exam. Bilateral pleural effusions and bilateral pulmonary parenchymal compressive atelectasis. Likewise a new finding since previous study Nonspecific bilateral perinephric fat stranding, also previously reported Bilateral basilar pulmonary interstitial and airspace edema Generalized edema of the subcutaneous fat Portable cardiomegaly Empty bladder with a Contreras catheter Degenerative spondylosis Microbiology Date/Time Source Procedure Growth Status 06/17/19 04:50 Blood Blood Culture - Preliminary NO GROWTH AFTER 4 DAYS Resulted 06/17/19 10:00 Sputum Induced Gram Stain - Final Complete 06/17/19 10:00 Sputum Induced Sputum Culture - Final NO GROWTH AFTER 48 HOURS Complete 06/19/19 10:20 Stool Stool Culture - Final NO SALMONELLA,SHIGELLA,OR CAMPYLOBACT... Complete 06/15/19 21:48 Urine,Clean Catch Urine Culture - Final NO GROWTH AFTER 48 HOURS Complete 06/15/19 23:20 Rectum - Final NO CARBAPENEM-RESISTANT ENTEROBACTERI... Complete Laboratory Tests Test 06/22/19 02:49 06/22/19 03:24 06/22/19 08:11 Arterial Blood pH 7.376 (7.350-7.450) 7.430 (7.350-7.450) Arterial Blood Partial Pressure CO2 27.7 mmHg (35.0-45.0) L 29.2 mmHg (35.0-45.0) L Arterial Blood Partial Pressure O2 79.9 mmHg (75.0-100.0) 63.1 mmHg (75.0-100.0) L Arterial Blood HCO3 15.9 mmol/L (22.0-26.0) *L 18.9 mmol/L (22.0-26.0) L Arterial Blood Oxygen Saturation 94.8 % (95-100) L 91.8 % (95-100) L Arterial Blood Base Excess -7.8 (-2-2) L -4.3 (-2-2) L Saul Test Positive Positive White Blood Count 13.8 K/UL (4.8-10.8) H Red Blood Count 4.30 M/UL (4.70-6.10) L Hemoglobin 12.4 G/DL (14.2-18.0) L Hematocrit 36.4 % (42.0-52.0) L Mean Corpuscular Volume 85 FL (80-99) Mean Corpuscular Hemoglobin 28.8 PG (27.0-31.0) Mean Corpuscular Hemoglobin Concent 34.0 G/DL (32.0-36.0) Red Cell Distribution Width 12.1 % (11.6-14.8) Platelet Count 49 K/UL (150-450) L Mean Platelet Volume 13.0 FL (6.5-10.1) H Neutrophils (%) (Auto) % (45.0-75.0) Lymphocytes (%) (Auto) % (20.0-45.0) Monocytes (%) (Auto) % (1.0-10.0) Eosinophils (%) (Auto) % (0.0-3.0) Basophils (%) (Auto) % (0.0-2.0) Differential Total Cells Counted 100 Neutrophils % (Manual) 92 % (45-75) H Lymphocytes % (Manual) 4 % (20-45) L Monocytes % (Manual) 3 % (1-10) Eosinophils % (Manual) 1 % (0-3) Basophils % (Manual) 0 % (0-2) Band Neutrophils 0 % (0-8) Platelet Estimate Decreased L Platelet Morphology Normal Sodium Level 147 MMOL/L (136-145) H Potassium Level 3.8 MMOL/L (3.5-5.1) Chloride Level 113 MMOL/L (98-107) H Carbon Dioxide Level 20 MMOL/L (21-32) L Anion Gap 15 mmol/L (5-15) Blood Urea Nitrogen 50 mg/dL (7-18) H Creatinine 2.2 MG/DL (0.55-1.30) H Estimat Glomerular Filtration Rate 29.5 mL/min (>60) Glucose Level 158 MG/DL (74-106) H Calcium Level 8.0 MG/DL (8.5-10.1) L Current Medications Medications (Trade) Dose Ordered Sig/Arley Route PRN Reason Start Time Stop Time Status Last Admin Dose Admin Acetaminophen (Tylenol) 650 mg Q4H PRN ORAL Mild Pain (Pain Scale 1-3) 06/20/19 18:05 07/15/19 18:04 Albumin Human 50 ml @ 50 mls/hr DAILY PRN IV For hypotension 06/20/19 18:09 07/20/19 18:08 Aspirin (ASA) 81 mg DAILY NG 06/21/19 09:00 07/20/19 08:59 Bisacodyl (Dulcolax) 10 mg DAILYPRN PRN RECTAL Constipation 06/20/19 18:07 07/15/19 18:06 Ceftriaxone Sodium 1 gm/ Dextrose 50 ml @ 100 mls/hr Q24H IVPB 06/21/19 17:00 06/25/19 16:59 06/21/19 16:34 Chlorhexidine Gluconate (Mena-Hex 2%) 1 applic DAILY@2000 TOPIC 06/20/19 20:00 07/16/19 19:59 06/21/19 21:06 Dextrose (Dextrose 50%) 25 ml Q30M PRN IV Hypoglycemia 06/20/19 18:06 07/16/19 18:05 Dextrose (Dextrose 50%) 50 ml Q30M PRN IV Hypoglycemia 06/20/19 18:06 07/16/19 18:05 Docusate Sodium (Colace) 100 mg EVERY 12 HOURS ORAL 06/20/19 21:00 07/16/19 08:59 Hydromorphone HCl (Dilaudid) 0.5 mg Q4H PRN IVP Moderate Pain (Pain Scale 4-6) 06/20/19 18:08 06/23/19 18:07 06/22/19 03:25 Insulin Aspart (NovoLOG) AC+HS SUBQ 06/21/19 11:30 07/20/19 17:59 06/21/19 21:05 Magnesium Hydroxide (Mom) 30 ml HSPRN PRN ORAL Constipation 06/20/19 21:00 07/15/19 20:59 Metoprolol Tartrate (Lopressor) 25 mg Q12HR ORAL 06/20/19 21:00 07/20/19 08:59 06/21/19 21:06 Metronidazole 100 ml @ 100 mls/hr Q8HR IVPB 06/20/19 22:00 06/25/19 21:59 06/22/19 13:47 Ondansetron HCl (Zofran) 4 mg Q6H PRN IVP Nausea & Vomiting 06/20/19 18:06 07/15/19 18:05 Pantoprazole (Protonix) 40 mg DAILY IVP 06/21/19 09:00 07/16/19 08:59 06/22/19 08:50 Pranay Waller MD Jun 22, 2019 15:59
[2019-06-22 16:00] VITALS: BP 125/59
--- NOTE | 2019-06-22 16:05 | Nephrology Progress Note ---
Assessment/Plan Plan #acute kidney injury - on baseline CKD- Fena 0.4% suggestive of pre-renal aztemia- however UA with sediments and RBC concerning for developing ATN- patient with baseline diabetic nephropathy - improving #sepsis #acute pancreatitis # Hypokalemia, hypopmagnesemia #lactic acidosis- improved #HTN- stable #DM- #NSTEMI- on lovenox #hypernatremia - monitor Cr - encourage water intake to thirst - diuretics prn - GI eval advance as tolerated - antibiotics per ID - heparin on hold for thrombocytopenia - HIT? - cardiology eval - ischemia eval? - maintain contreras - monitor UOP closely - monitor bicarb level - hold lisinopril - hold metformin - hold amlodipine - ISS Subjective Subjective Breathing stable today BP stable Cr improving sodium mildly elevated mentating well Objective Objective Last 24 Hour Vital Signs Date Time Temp Pulse Resp B/P (MAP) Pulse Ox O2 Delivery O2 Flow Rate FiO2 06/22/19 12:00 Nasal Cannula 3.0 06/22/19 12:00 88 06/22/19 12:00 98.1 96 21 112/59 (76) 97 06/22/19 08:53 89 104/65 06/22/19 08:00 98.1 89 20 104/65 (78) 96 89 06/22/19 08:00 Bi-pap 06/22/19 08:00 89 06/22/19 07:00 90 19 95 Nasal Cannula 2.0 28 06/22/19 07:00 95 Nasal Cannula 2.0 28 06/22/19 05:29 101 37 98 35 06/22/19 04:00 105 06/22/19 04:00 Bi-pap 06/22/19 04:00 97.8 108 22 129/53 (78) 98 108 06/22/19 02:30 110 37 96 35 06/22/19 00:00 Nasal Cannula 3.0 06/22/19 00:00 78 06/22/19 00:00 98.4 95 21 150/70 (96) 98 78 06/21/19 22:00 3.0 06/21/19 21:06 81 146/67 06/21/19 20:00 97.5 81 21 146/67 (93) 98 06/21/19 20:00 Nasal Cannula 3.0 06/21/19 20:00 71 06/21/19 19:00 97 Nasal Cannula 2.0 28 06/21/19 19:00 80 18 97 Nasal Cannula 2.0 28 Intake and Output 06/21/19 06/22/19 19:00 07:00 Intake Total 720 ml 100 ml Output Total 1700 ml 1100 ml Balance -980 ml -1000 ml Intake Oral 520 ml IV Total 200 ml 100 ml Output Urine Total 1700 ml 1100 ml # Bowel Movements 1 2 Laboratory Tests 06/22/19 02:49: Arterial Blood pH 7.376, Arterial Blood Partial Pressure CO2 27.7L, Arterial Blood Partial Pressure O2 79.9, Arterial Blood HCO3 15.9*L, Arterial Blood Oxygen Saturation 94.8L, Arterial Blood Base Excess -7.8L, Saul Test Positive 06/22/19 03:24: White Blood Count 13.8H, Red Blood Count 4.30L, Hemoglobin 12.4L, Hematocrit 36.4L, Mean Corpuscular Volume 85, Mean Corpuscular Hemoglobin 28.8, Mean Corpuscular Hemoglobin Concent 34.0, Red Cell Distribution Width 12.1, Platelet Count 49L, Mean Platelet Volume 13.0H, Neutrophils (%) (Auto) , Lymphocytes (%) (Auto) , Monocytes (%) (Auto) , Eosinophils (%) (Auto) , Basophils (%) (Auto) , Differential Total Cells Counted 100, Neutrophils % (Manual) 92H, Lymphocytes % (Manual) 4L, Monocytes % (Manual) 3, Eosinophils % (Manual) 1, Basophils % ( Manual) 0, Band Neutrophils 0, Platelet Estimate DecreasedL, Platelet Morphology Normal, Sodium Level 147H, Potassium Level 3.8, Chloride Level 113H, Carbon Dioxide Level 20L, Anion Gap 15, Blood Urea Nitrogen 50H, Creatinine 2.2H , Estimat Glomerular Filtration Rate 29.5, Glucose Level 158H, Calcium Level 8.0L 06/22/19 08:11: Arterial Blood pH 7.430, Arterial Blood Partial Pressure CO2 29.2L, Arterial Blood Partial Pressure O2 63.1L, Arterial Blood HCO3 18.9L, Arterial Blood Oxygen Saturation 91.8L, Arterial Blood Base Excess -4.3L, Saul Test Positive Height (Feet): 5 Height (Inches): 7.00 Weight (Pounds): 241 Objective General Appearance: Alert - no distress Lines, tubes and drains: peripheral HEENT: normocephalic, atraumatic Neck: non-tender, normal alignment Respiratory/Chest: chest wall non-tender, lungs clear, normal breath sounds Cardiovascular/Chest: normal rate, regular rhythm Abdomen: normal bowel sounds, non tender, soft Extremities: non-tender, normal inspection Skin Exam: normal pigmentation, no diaphoresis Gerson Salgado M.D. Jun 22, 2019 16:05
[2019-06-22] MEDS: cefTRIAXone 1 GM in D5W 50 ML IVPB SCH (17:32)
[2019-06-22] MEDS ORDERED: Vancomycin 1.5gm/NS Premix q24h IVPB ONE (18:00)
--- NOTE | 2019-06-22 18:12 | General Progress Note ---
Assessment/Plan Status: stable Assessment/Plan: 73 year old man with HTN, IDDM, ? history of CVA who presented to [facility] ED with nausea,vomiting. #septic shock, POA #Klebsiella bacteremia -ICU --> [facility] -Stopped IV fluids due to hypoxemia -cont antibiotics as per ID recs -ceftriaxone and flagyl - day # 7 abx - recheck cultures, add vancomycin to cover line per Id recs - consider remove picc line since it is clotte #acute hypoxic resp failure without hypercarbia -intermittent BiPAP -continue inhaled bronchodilators -repeat CXR pedning -Pulm/CCM following -bipap prn and QHS #NSTEMI, peak trop of 2, likely due to demand ischemia -Stop heparin due to thrombocytopenia -Cardiology following #acute kidney injury on CKD, possible ATN -IV hydration stopped as above -Nephrology following -monitor BMP -avoid nephrotoxic meds -scr with improvement #acute pancreatitis -Advance diet as per GI -? Need for EUS #Thrombocytopenia, no active bleeding noted -off heparin -transfuse for Platelets < 20K -cont to monitor daily CBC -Hematology consult appreciated #Hypokalemia, hypomagnesemia -replace and monitor labs #lactic acidosis #HTN -cont to hold BP meds #DM type 2 -ISS VTE PPx Heparin Full Code I spent 40 minutes on this encounter. > 50% spent on counselling and care coordination Subjective Date patient seen: Jun 22, 2019 ROS Limited/Unobtainable: No Constitutional: Denies: no symptoms, chills, diaphoresis, fever, malaise, weakness, other HEENT: Denies: no symptoms, eye pain, blurred vision, tearing, double vision, ear pain, ear discharge, nose pain, nose congestion, throat pain, throat swelling, mouth pain, mouth swelling, other Cardiovascular: Denies: no symptoms, chest pain, edema, irregular heart rate, lightheadedness, palpitations, syncope, other Respiratory: Denies: no symptoms, cough, orthopnea, shortness of breath, SOB with excertion, SOB at rest, sputum, stridor, wheezing, other Gastrointestinal/Abdominal: Denies: no symptoms, abdomen distended, abdominal pain, black stools, tarry stools, blood in stool, constipated, diarrhea, difficulty swallowing, nausea, poor appetite, poor fluid intake, rectal bleeding , vomiting, other Genitourinary: Denies: no symptoms, burning, discharge, frequency, flank pain, hematuria, incontinence, pain, urgency, other Neurologic/Psychiatric: Denies: no symptoms, anxiety, depressed, emotional problems, headache, numbness, paresthesia, pre-existing deficit, seizure, tingling, tremors, weakness, other Endocrine: Denies: no symptoms, excessive sweating, flushing, intolerance to cold, intolerance to heat, increased hunger, increased thirst, increased urine, unexplained weight gain, unexplained weight loss, other Hematologic/Lymphatic: Denies: no symptoms, anemia, easy bleeding, easy bruising, other Allergies: Coded Allergies: No Known Allergies (Unverified , 06/02/19) Subjective no acute events, lying flat, nc on, no respiratory distress. alert and oriented x4. denies sob, chest pain, palpitations Objective Last 24 Hour Vital Signs Date Time Temp Pulse Resp B/P (MAP) Pulse Ox O2 Delivery O2 Flow Rate FiO2 06/22/19 16:00 Nasal Cannula 3.0 06/22/19 16:00 97.9 83 19 125/59 (81) 99 06/22/19 15:23 74 06/22/19 12:00 Nasal Cannula 3.0 06/22/19 12:00 88 06/22/19 12:00 98.1 96 21 112/59 (76) 97 06/22/19 08:53 89 104/65 06/22/19 08:00 98.1 89 20 104/65 (78) 96 89 06/22/19 08:00 Bi-pap 06/22/19 08:00 89 06/22/19 07:00 90 19 95 Nasal Cannula 2.0 28 06/22/19 07:00 95 Nasal Cannula 2.0 28 06/22/19 05:29 101 37 98 35 06/22/19 04:00 105 06/22/19 04:00 Bi-pap 06/22/19 04:00 97.8 108 22 129/53 (78) 98 108 06/22/19 02:30 110 37 96 35 06/22/19 00:00 Nasal Cannula 3.0 06/22/19 00:00 78 06/22/19 00:00 98.4 95 21 150/70 (96) 98 78 06/21/19 22:00 3.0 06/21/19 21:06 81 146/67 06/21/19 20:00 97.5 81 21 146/67 (93) 98 06/21/19 20:00 Nasal Cannula 3.0 06/21/19 20:00 71 06/21/19 19:00 97 Nasal Cannula 2.0 28 06/21/19 19:00 80 18 97 Nasal Cannula 2.0 28 Intake and Output 06/21/19 06/22/19 19:00 07:00 Intake Total 720 ml 100 ml Output Total 1700 ml 1100 ml Balance -980 ml -1000 ml Intake Oral 520 ml IV Total 200 ml 100 ml Output Urine Total 1700 ml 1100 ml # Bowel Movements 1 2 Laboratory Tests 06/22/19 02:49: Arterial Blood pH 7.376, Arterial Blood Partial Pressure CO2 27.7L, Arterial Blood Partial Pressure O2 79.9, Arterial Blood HCO3 15.9*L, Arterial Blood Oxygen Saturation 94.8L, Arterial Blood Base Excess -7.8L, Saul Test Positive 06/22/19 03:24: White Blood Count 13.8H, Red Blood Count 4.30L, Hemoglobin 12.4L, Hematocrit 36.4L, Mean Corpuscular Volume 85, Mean Corpuscular Hemoglobin 28.8, Mean Corpuscular Hemoglobin Concent 34.0, Red Cell Distribution Width 12.1, Platelet Count 49L, Mean Platelet Volume 13.0H, Neutrophils (%) (Auto) , Lymphocytes (%) (Auto) , Monocytes (%) (Auto) , Eosinophils (%) (Auto) , Basophils (%) (Auto) , Differential Total Cells Counted 100, Neutrophils % (Manual) 92H, Lymphocytes % (Manual) 4L, Monocytes % (Manual) 3, Eosinophils % (Manual) 1, Basophils % ( Manual) 0, Band Neutrophils 0, Platelet Estimate DecreasedL, Platelet Morphology Normal, Sodium Level 147H, Potassium Level 3.8, Chloride Level 113H, Carbon Dioxide Level 20L, Anion Gap 15, Blood Urea Nitrogen 50H, Creatinine 2.2H , Estimat Glomerular Filtration Rate 29.5, Glucose Level 158H, Calcium Level 8.0L 06/22/19 08:11: Arterial Blood pH 7.430, Arterial Blood Partial Pressure CO2 29.2L, Arterial Blood Partial Pressure O2 63.1L, Arterial Blood HCO3 18.9L, Arterial Blood Oxygen Saturation 91.8L, Arterial Blood Base Excess -4.3L, Saul Test Positive Height (Feet): 5 Height (Inches): 7.00 Weight (Pounds): 241 Objective General Appearance: no acute distress, obese HEENT: normocephalic, atraumatic, anicteric, mucous membranes moist Respiratory/Chest: chest wall non-tender, lungs clear, normal breath sounds, no respiratory distress, rhonchi Cardiovascular: normal peripheral pulses, normal rate, regular rhythm Abdomen: normal bowel sounds, soft, non tender, no organomegaly, non distended , no mass Extremities: no cyanosis, no clubbing, no edema Jn Beard M.D. Jun 22, 2019 18:12
--- NOTE | 2019-06-22 18:17 | Pulmonology Progress Note ---
Assessment/Plan Problems: (1) Sepsis (2) Hypoxia (3) Left upper quadrant abdominal mass (4) Thrombocytopenia (5) Acute kidney injury superimposed on CKD Assessment/Plan BiPAP PRN and qHS Titrate FiO2 HHN's Monitor volumes and renal function ABx per ID, F/U Cx's F/U cards recs ? ischemia eval once acute issues resolve F/U GI recs, F/U CA-19-9 Monitor platelets, F/U HIT Ab panel Cautious PO only when off BiPAP with STRICT ASPIRATION precautions In the future should have a CT chest (screening) when acute issues resolve DVT Px: SCD's FC Subjective Allergies: Coded Allergies: No Known Allergies (Unverified , 06/02/19) Subjective AFVSS O2 needs stable Used BiPAP ON WCt inc Weak cough no SOB no FC no CP Objective Last 24 Hour Vital Signs Date Time Temp Pulse Resp B/P (MAP) Pulse Ox O2 Delivery O2 Flow Rate FiO2 06/22/19 16:00 Nasal Cannula 3.0 06/22/19 16:00 97.9 83 19 125/59 (81) 99 06/22/19 15:23 74 06/22/19 12:00 Nasal Cannula 3.0 06/22/19 12:00 88 06/22/19 12:00 98.1 96 21 112/59 (76) 97 06/22/19 08:53 89 104/65 06/22/19 08:00 98.1 89 20 104/65 (78) 96 89 06/22/19 08:00 Bi-pap 06/22/19 08:00 89 06/22/19 07:00 90 19 95 Nasal Cannula 2.0 28 06/22/19 07:00 95 Nasal Cannula 2.0 28 06/22/19 05:29 101 37 98 35 06/22/19 04:00 105 06/22/19 04:00 Bi-pap 06/22/19 04:00 97.8 108 22 129/53 (78) 98 108 06/22/19 02:30 110 37 96 35 06/22/19 00:00 Nasal Cannula 3.0 06/22/19 00:00 78 06/22/19 00:00 98.4 95 21 150/70 (96) 98 78 06/21/19 22:00 3.0 06/21/19 21:06 81 146/67 06/21/19 20:00 97.5 81 21 146/67 (93) 98 06/21/19 20:00 Nasal Cannula 3.0 06/21/19 20:00 71 06/21/19 19:00 97 Nasal Cannula 2.0 28 06/21/19 19:00 80 18 97 Nasal Cannula 2.0 28 Intake and Output 06/21/19 06/22/19 19:00 07:00 Intake Total 720 ml 100 ml Output Total 1700 ml 1100 ml Balance -980 ml -1000 ml Intake Oral 520 ml IV Total 200 ml 100 ml Output Urine Total 1700 ml 1100 ml # Bowel Movements 1 2 General Appearance: no acute distress, cachetic, other - Ob M HEENT: normocephalic, atraumatic, anicteric, mucous membranes moist Respiratory/Chest: chest wall non-tender, lungs clear, normal breath sounds, no respiratory distress, no accessory muscle use Cardiovascular: normal peripheral pulses, normal rate, regular rhythm Abdomen: normal bowel sounds, soft, non tender, no organomegaly, non distended , no mass Extremities: no cyanosis, no clubbing, no edema Laboratory Tests 06/22/19 02:49: Arterial Blood pH 7.376, Arterial Blood Partial Pressure CO2 27.7L, Arterial Blood Partial Pressure O2 79.9, Arterial Blood HCO3 15.9*L, Arterial Blood Oxygen Saturation 94.8L, Arterial Blood Base Excess -7.8L, Saul Test Positive 06/22/19 03:24: White Blood Count 13.8H, Red Blood Count 4.30L, Hemoglobin 12.4L, Hematocrit 36.4L, Mean Corpuscular Volume 85, Mean Corpuscular Hemoglobin 28.8, Mean Corpuscular Hemoglobin Concent 34.0, Red Cell Distribution Width 12.1, Platelet Count 49L, Mean Platelet Volume 13.0H, Neutrophils (%) (Auto) , Lymphocytes (%) (Auto) , Monocytes (%) (Auto) , Eosinophils (%) (Auto) , Basophils (%) (Auto) , Differential Total Cells Counted 100, Neutrophils % (Manual) 92H, Lymphocytes % (Manual) 4L, Monocytes % (Manual) 3, Eosinophils % (Manual) 1, Basophils % ( Manual) 0, Band Neutrophils 0, Platelet Estimate DecreasedL, Platelet Morphology Normal, Sodium Level 147H, Potassium Level 3.8, Chloride Level 113H, Carbon Dioxide Level 20L, Anion Gap 15, Blood Urea Nitrogen 50H, Creatinine 2.2H , Estimat Glomerular Filtration Rate 29.5, Glucose Level 158H, Calcium Level 8.0L 06/22/19 08:11: Arterial Blood pH 7.430, Arterial Blood Partial Pressure CO2 29.2L, Arterial Blood Partial Pressure O2 63.1L, Arterial Blood HCO3 18.9L, Arterial Blood Oxygen Saturation 91.8L, Arterial Blood Base Excess -4.3L, Saul Test Positive Current Medications Medications (Trade) Dose Ordered Sig/Arley Route PRN Reason Start Time Stop Time Status Last Admin Dose Admin Acetaminophen (Tylenol) 650 mg Q4H PRN ORAL Mild Pain (Pain Scale 1-3) 06/20/19 18:05 07/15/19 18:04 Albumin Human 50 ml @ 50 mls/hr DAILY PRN IV For hypotension 06/20/19 18:09 07/20/19 18:08 Aspirin (ASA) 81 mg DAILY NG 06/21/19 09:00 07/20/19 08:59 Bisacodyl (Dulcolax) 10 mg DAILYPRN PRN RECTAL Constipation 06/20/19 18:07 07/15/19 18:06 Ceftriaxone Sodium 1 gm/ Dextrose 50 ml @ 100 mls/hr Q24H IVPB 06/21/19 17:00 06/25/19 16:59 06/22/19 17:32 Chlorhexidine Gluconate (Mena-Hex 2%) 1 applic DAILY@2000 TOPIC 06/20/19 20:00 07/16/19 19:59 06/21/19 21:06 Dextrose (Dextrose 50%) 25 ml Q30M PRN IV Hypoglycemia 06/20/19 18:06 07/16/19 18:05 Dextrose (Dextrose 50%) 50 ml Q30M PRN IV Hypoglycemia 06/20/19 18:06 07/16/19 18:05 Hydromorphone HCl (Dilaudid) 0.5 mg Q4H PRN IVP Moderate Pain (Pain Scale 4-6) 06/20/19 18:08 06/23/19 18:07 06/22/19 03:25 Insulin Aspart (NovoLOG) AC+HS SUBQ 06/21/19 11:30 07/20/19 17:59 06/21/19 21:05 Magnesium Hydroxide (Mom) 30 ml HSPRN PRN ORAL Constipation 06/20/19 21:00 07/15/19 20:59 Metoprolol Tartrate (Lopressor) 25 mg Q12HR ORAL 06/20/19 21:00 07/20/19 08:59 06/21/19 21:06 Metronidazole 100 ml @ 100 mls/hr Q8HR IVPB 06/20/19 22:00 06/25/19 21:59 06/22/19 13:47 Ondansetron HCl (Zofran) 4 mg Q6H PRN IVP Nausea & Vomiting 06/20/19 18:06 07/15/19 18:05 Pantoprazole (Protonix) 40 mg DAILY IVP 06/21/19 09:00 07/16/19 08:59 06/22/19 08:50 Vancomycin HCl (Vanco rx to dose) 1 ea DAILY PRN MISC Per rx protocol 06/22/19 16:15 07/22/19 16:14 Vancomycin/Sodium Chloride 275 ml @ 137.5 mls/ hr ONCE ONCE IVPB 06/22/19 18:00 06/22/19 19:59 06/22/19 17:45 Homero Moran MD Jun 22, 2019 18:16
[2019-06-22 18:33] LABS: APPEARANCE,URINE CLOUDY; BILIRUBIN, URINE NEGATIVE (NEGATIVE); GLUCOSE, URINE (UA) NEGATIVE (NEGATIVE); KETONES,URINE NEGATIVE (NEGATIVE); LEUKOCYTE ESTERASE ,URINE 2+ (NEGATIVE); NITRITE,URINE NEGATIVE (NEGATIVE); PH,URINE 5 (4.5-8.0); PROTEIN,URINE 3+ (NEGATIVE); UROBILINOGEN,URINE NORMAL MG/DL (0.0-1.0)
[2019-06-22 18:41] LABS: COLOR,URINE YELLOW
--- NOTE | 2019-06-22 19:10 | NUR ---
NURSE NOTES: Pt report received from PADDY SCHULER. pt remains stable. pt is alert and oriented times 4 able to follow commands. pt is is on quality assurance monitor final showing NSR, no acute signs symptoms of acute cardiac distress noted. pt is on 3 L NC satting at 99% no acute signs symptoms of acute resp distress noted. pt bed is low, locked, armed, call light within reach, bed rails up times 3. will follow plan of care.
--- NOTE | 2019-06-22 19:20 | NUR ---
HAND-OFF: Report given to Ramírez SCHULER. Pt remains stable.
[2019-06-22 20:00] VITALS: BP 149/70
[2019-06-22] MEDS: Dyna-Hex 2% Top Sol 2oz TOPIC SCH (20:00)
--- NOTE | 2019-06-22 20:50 | NUR ---
NURSE NOTES: Pt Left upper arm PICC removed. PICC line TIP in placed in specimen cup and sent to lab under Doctor Sridhar order.
--- NOTE | 2019-06-22 22:10 | NUR ---
NURSE NOTES: Spoke to doctor Waller. he stated to renew the order for the Culture catheter tip for Left upper arm PICC.
[2019-06-23] VITALS: BP 133/63
[2019-06-23 04:00] VITALS: BP 138/69
[2019-06-23 05:07] LABS: HEMATOCRIT 30.5 % (42.0-52.0); HEMOGLOBIN 10.4 G/DL (14.2-18.0); MEAN CORPUSCULAR VOLUME 85 FL (80-99); PLATELET COUNT 41 K/UL (150-450); RED CELL DISTRIBUTION WIDTH 12.6 % (11.6-14.8); WHITE BLOOD COUNT 16.3 K/UL (4.8-10.8)
[2019-06-23 05:20] LABS: ALANINE AMINOTRANSFERASE 25 U/L (12-78); ALBUMIN 1.8 G/DL (3.4-5.0); ALBUMIN/GLOBULIN RATIO 0.6 (1.0-2.7); ALKALINE PHOSPHATASE 72 U/L (46-116); ANION GAP 9 mmol/L (5-15); ASPARTATE AMINO TRANSFERASE 16 U/L (15-37); BILIRUBIN,TOTAL 0.5 MG/DL (0.2-1.0); BLOOD UREA NITROGEN 46 mg/dL (7-18); CALCIUM 7.8 MG/DL (8.5-10.1); CARBON DIOXIDE 24 MMOL/L (21-32); CHLORIDE 109 MMOL/L (98-107); POTASSIUM 3.6 MMOL/L (3.5-5.1); SODIUM 142 MMOL/L (136-145)
[2019-06-23] MEDS: NovoLOG Insulin Flexpen SUBQ SCH ×4 (05:48→20:45)
--- NOTE | 2019-06-23 06:32 | Hematology/Onc Progress Note ---
Assessment/Plan Assessment/Plan Assessment and recs: # Thrombocytopenia - potential causes multifactorial, in this case due to sepsis , less likely due to heparin --> Hep panel and HIV are negative --> US abd to evaluate for cirrhosis and hsm ordered and none noted --> Peripheral smear ordered to evaluate for blasts /schistocytes --> abx and other meds have been reviewed --> ok for ppx if plt >50k w/ either heparin or lovenox --> Transfuse if Plt < 20k and fever, or if Plt < 10k without fever --> plt trend 41-->49k # 10.7 cm unilocular cystic structure in the left upper quadrant retroperitoneal , corresponding to findings reported on recent CT scan. Most likely represents a pancreatic pseudocyst. --> continue to monitor as per gi --> repeat us or ct in short order, weeks to months to re-eval --> repeat ct showed mild enlargement of cyst/mass, will need further repeat imaging # DM, ? history of CVA who presented to [facility] with nausea,vomiting. --> a1c goal <8, accuchecks qac/qhs # Septic shock, POA, possible biliary source --> cont ICU level of care --> cont IV hydration --> on abx, as per pulm/cc # Acute hypoxic resp failure without hypercarbia --> Intermittent BiPAP --> continue inhaled bronchodilators # NSTEMI, peak trop of 2, likely due to demand ischemia --> Stop heparin due to thrombocytopenia --> less likely is HIT syndrome --> duplex lower legs is neg --> HIT pending # Acute kidney injury on CKD, possible ATN --> Nephrology following # Acute pancreatitis --> hydration # HTN --> cont to hold BP meds # DM type 2 --> ISS # Dvt ppx scds Appreciate consultation and sydney Rn Subjective Constitutional: Denies: no symptoms, chills, fever, malaise, weakness, other HEENT: Denies: no symptoms, eye pain, blurred vision, tearing, double vision, ear pain, ear discharge, nose pain, nose congestion, throat pain, throat swelling, mouth pain, mouth swelling, other Cardiovascular: Denies: no symptoms, chest pain, edema, irregular heart rate, lightheadedness, palpitations, syncope, other Respiratory: Denies: no symptoms, cough, shortness of breath, SOB with excertion, SOB at rest, sputum, wheezing, other Gastrointestinal/Abdominal: Denies: no symptoms, abdomen distended, abdominal pain, black stools, tarry stools, blood in stool, constipated, diarrhea, difficulty swallowing, nausea, poor appetite, poor fluid intake, rectal bleeding , vomiting, other Genitourinary: Denies: no symptoms, burning, discharge, frequency, flank pain, hematuria, incontinence, pain, urgency, other Neurologic/Psychiatric: Denies: no symptoms, anxiety, depressed, emotional problems, headache, numbness, paresthesia, pre-existing deficit, seizure, tingling, tremors, weakness, other Endocrine: Denies: no symptoms, excessive sweating, flushing, intolerance to cold, intolerance to heat, increased hunger, increased thirst, increased urine, unexplained weight gain, unexplained weight loss, other Allergies: Coded Allergies: No Known Allergies (Unverified , 06/02/19) Subjective 06/20: awake and alert, no overnight events, v mask 06/22: plts remain low, in the 40s, off anticaog, dw rn, pending labs Objective Objective Current Medications Medications (Trade) Dose Ordered Sig/Arley Route PRN Reason Start Time Stop Time Status Last Admin Dose Admin Acetaminophen (Tylenol) 650 mg Q4H PRN ORAL Mild Pain (Pain Scale 1-3) 06/20/19 18:05 07/15/19 18:04 Albumin Human 50 ml @ 50 mls/hr DAILY PRN IV For hypotension 06/20/19 18:09 07/20/19 18:08 Aspirin (ASA) 81 mg DAILY NG 06/21/19 09:00 07/20/19 08:59 Bisacodyl (Dulcolax) 10 mg DAILYPRN PRN RECTAL Constipation 06/20/19 18:07 07/15/19 18:06 Ceftriaxone Sodium 1 gm/ Dextrose 50 ml @ 100 mls/hr Q24H IVPB 06/21/19 17:00 06/25/19 16:59 06/22/19 17:32 Chlorhexidine Gluconate (Mena-Hex 2%) 1 applic DAILY@2000 TOPIC 06/20/19 20:00 07/16/19 19:59 06/21/19 21:06 Dextrose (Dextrose 50%) 25 ml Q30M PRN IV Hypoglycemia 06/20/19 18:06 07/16/19 18:05 Dextrose (Dextrose 50%) 50 ml Q30M PRN IV Hypoglycemia 06/20/19 18:06 07/16/19 18:05 Hydromorphone HCl (Dilaudid) 0.5 mg Q4H PRN IVP Moderate Pain (Pain Scale 4-6) 06/20/19 18:08 06/23/19 18:07 06/22/19 03:25 Insulin Aspart (NovoLOG) AC+HS SUBQ 06/21/19 11:30 07/20/19 17:59 06/22/19 20:53 Magnesium Hydroxide (Mom) 30 ml HSPRN PRN ORAL Constipation 06/20/19 21:00 07/15/19 20:59 Metoprolol Tartrate (Lopressor) 25 mg Q12HR ORAL 06/20/19 21:00 07/20/19 08:59 06/22/19 20:43 Metronidazole 100 ml @ 100 mls/hr Q8HR IVPB 06/20/19 22:00 06/25/19 21:59 06/23/19 05:52 Ondansetron HCl (Zofran) 4 mg Q6H PRN IVP Nausea & Vomiting 06/20/19 18:06 07/15/19 18:05 Pantoprazole (Protonix) 40 mg DAILY IVP 06/21/19 09:00 07/16/19 08:59 06/22/19 08:50 Vancomycin HCl (Vanco rx to dose) 1 ea DAILY PRN MISC Per rx protocol 06/22/19 16:15 07/22/19 16:14 Last 24 Hour Vital Signs Date Time Temp Pulse Resp B/P (MAP) Pulse Ox O2 Delivery O2 Flow Rate FiO2 06/23/19 04:00 98.4 81 22 138/69 (92) 98 06/23/19 04:00 Nasal Cannula 3.0 06/23/19 04:00 76 06/23/19 00:00 72 06/23/19 00:00 97.8 70 22 133/63 (86) 99 06/23/19 00:00 Nasal Cannula 3.0 06/22/19 22:00 3.0 06/22/19 20:43 80 149/70 06/22/19 20:00 Nasal Cannula 3.0 06/22/19 20:00 81 06/22/19 20:00 96.4 79 21 149/70 (96) 99 06/22/19 18:23 83 18 97 Nasal Cannula 2.0 28 06/22/19 18:23 97 Nasal Cannula 2.0 28 06/22/19 16:00 Nasal Cannula 3.0 06/22/19 16:00 97.9 83 19 125/59 (81) 99 06/22/19 15:23 74 06/22/19 12:00 Nasal Cannula 3.0 06/22/19 12:00 88 06/22/19 12:00 98.1 96 21 112/59 (76) 97 06/22/19 08:53 89 104/65 06/22/19 08:00 98.1 89 20 104/65 (78) 96 89 06/22/19 08:00 Bi-pap 06/22/19 08:00 89 06/22/19 07:00 90 19 95 Nasal Cannula 2.0 28 06/22/19 07:00 95 Nasal Cannula 2.0 28 06/22/19 05:29 101 37 98 35 06/22/19 04:00 105 06/22/19 04:00 Bi-pap 06/22/19 04:00 97.8 108 22 129/53 (78) 98 108 06/22/19 02:30 110 37 96 35 06/22/19 00:00 Nasal Cannula 3.0 06/22/19 00:00 78 06/22/19 00:00 98.4 95 21 150/70 (96) 98 78 06/21/19 22:00 3.0 06/21/19 21:06 81 146/67 06/21/19 20:00 97.5 81 21 146/67 (93) 98 06/21/19 20:00 Nasal Cannula 3.0 06/21/19 20:00 71 06/21/19 19:00 97 Nasal Cannula 2.0 28 06/21/19 19:00 80 18 97 Nasal Cannula 2.0 28 06/21/19 16:00 99.2 81 21 145/82 (103) 97 06/21/19 16:00 Nasal Cannula 3.0 06/21/19 15:21 77 06/21/19 12:00 Nasal Cannula 3.0 06/21/19 12:00 99.4 78 23 146/67 (93) 96 06/21/19 11:46 77 06/21/19 09:32 84 146/58 06/21/19 08:00 87 06/21/19 08:00 99.1 84 22 146/58 (87) 97 06/21/19 08:00 Nasal Cannula 3.0 06/21/19 07:50 98 Nasal Cannula 2.0 28 06/21/19 07:50 82 18 98 Nasal Cannula 2.0 28 Intake and Output 06/22/19 06/23/19 19:00 07:00 Intake Total 887.5 ml 100 ml Output Total 900 ml 900 ml Balance -12.5 ml -800 ml Intake Oral 600 ml IV Total 287.5 ml 100 ml Output Urine Total 900 ml 900 ml Labs Test 06/21/19 07:25 06/22/19 02:49 06/22/19 03:24 06/22/19 08:11 White Blood Count 12.9 K/UL (4.8-10.8) 13.8 K/UL (4.8-10.8) Red Blood Count 4.00 M/UL (4.70-6.10) 4.30 M/UL (4.70-6.10) Hemoglobin 11.4 G/DL (14.2-18.0) 12.4 G/DL (14.2-18.0) Hematocrit 34.5 % (42.0-52.0) 36.4 % (42.0-52.0) Mean Corpuscular Volume 86 FL (80-99) 85 FL (80-99) Mean Corpuscular Hemoglobin 28.5 PG (27.0-31.0) 28.8 PG (27.0-31.0) Mean Corpuscular Hemoglobin Concent 33.1 G/DL (32.0-36.0) 34.0 G/DL (32.0-36.0) Red Cell Distribution Width 12.3 % (11.6-14.8) 12.1 % (11.6-14.8) Platelet Count 41 K/UL (150-450) 49 K/UL (150-450) Mean Platelet Volume 11.5 FL (6.5-10.1) 13.0 FL (6.5-10.1) Neutrophils (%) (Auto) % (45.0-75.0) % (45.0-75.0) Lymphocytes (%) (Auto) % (20.0-45.0) % (20.0-45.0) Monocytes (%) (Auto) % (1.0-10.0) % (1.0-10.0) Eosinophils (%) (Auto) % (0.0-3.0) % (0.0-3.0) Basophils (%) (Auto) % (0.0-2.0) % (0.0-2.0) Differential Total Cells Counted 100 100 Neutrophils % (Manual) 77 % (45-75) 92 % (45-75) Lymphocytes % (Manual) 8 % (20-45) 4 % (20-45) Monocytes % (Manual) 12 % (1-10) 3 % (1-10) Eosinophils % (Manual) 2 % (0-3) 1 % (0-3) Basophils % (Manual) 1 % (0-2) 0 % (0-2) Band Neutrophils 0 % (0-8) 0 % (0-8) Platelet Estimate Decreased Decreased Platelet Morphology Normal Normal Hypochromasia 1+ Anisocytosis 1+ Sodium Level 143 MMOL/L (136-145) 147 MMOL/L (136-145) Potassium Level 4.2 MMOL/L (3.5-5.1) 3.8 MMOL/L (3.5-5.1) Chloride Level 110 MMOL/L (98-107) 113 MMOL/L (98-107) Carbon Dioxide Level 23 MMOL/L (21-32) 20 MMOL/L (21-32) Anion Gap 10 mmol/L (5-15) 15 mmol/L (5-15) Blood Urea Nitrogen 61 mg/dL (7-18) 50 mg/dL (7-18) Creatinine 2.3 MG/DL (0.55-1.30) 2.2 MG/DL (0.55-1.30) Estimat Glomerular Filtration Rate 28.0 mL/min (>60) 29.5 mL/min (>60) Glucose Level 121 MG/DL (74-106) 158 MG/DL (74-106) Calcium Level 8.4 MG/DL (8.5-10.1) 8.0 MG/DL (8.5-10.1) Amylase Level 91 U/L (25-115) Lipase 533 U/L (73-393) Arterial Blood pH 7.376 (7.350-7.450) 7.430 (7.350-7.450) Arterial Blood Partial Pressure CO2 27.7 mmHg (35.0-45.0) 29.2 mmHg (35.0-45.0) Arterial Blood Partial Pressure O2 79.9 mmHg (75.0-100.0) 63.1 mmHg (75.0-100.0) Arterial Blood HCO3 15.9 mmol/L (22.0-26.0) 18.9 mmol/L (22.0-26.0) Arterial Blood Oxygen Saturation 94.8 % (95-100) 91.8 % (95-100) Arterial Blood Base Excess -7.8 (-2-2) -4.3 (-2-2) Saul Test Positive Positive Test 06/22/19 18:09 06/23/19 03:57 Urine Color Yellow Urine Appearance Cloudy Urine pH 5 (4.5-8.0) Urine Specific [place] 1.015 (1.005-1.035) Urine Protein 3+ (NEGATIVE) Urine Glucose (UA) Negative (NEGATIVE) Urine Ketones Negative (NEGATIVE) Urine Blood 5+ (NEGATIVE) Urine Nitrite Negative (NEGATIVE) Urine Bilirubin Negative (NEGATIVE) Urine Urobilinogen Normal MG/DL (0.0-1.0) Urine Leukocyte Esterase 2+ (NEGATIVE) Urine RBC Tntc /HPF (0 - 0) Urine WBC 10-15 /HPF (0 - 0) Urine Squamous Epithelial Cells Occasional /LPF Urine Amorphous Sediment Many /LPF (NONE) Urine Bacteria Many /HPF (NONE) Urine Granular Casts 0-2 /LPF (NONE) White Blood Count 16.3 K/UL (4.8-10.8) Red Blood Count 3.60 M/UL (4.70-6.10) Hemoglobin 10.4 G/DL (14.2-18.0) Hematocrit 30.5 % (42.0-52.0) Mean Corpuscular Volume 85 FL (80-99) Mean Corpuscular Hemoglobin 28.8 PG (27.0-31.0) Mean Corpuscular Hemoglobin Concent 34.0 G/DL (32.0-36.0) Red Cell Distribution Width 12.6 % (11.6-14.8) Platelet Count 41 K/UL (150-450) Mean Platelet Volume 13.1 FL (6.5-10.1) Neutrophils (%) (Auto) % (45.0-75.0) Lymphocytes (%) (Auto) % (20.0-45.0) Monocytes (%) (Auto) % (1.0-10.0) Eosinophils (%) (Auto) % (0.0-3.0) Basophils (%) (Auto) % (0.0-2.0) Sodium Level 142 MMOL/L (136-145) Potassium Level 3.6 MMOL/L (3.5-5.1) Chloride Level 109 MMOL/L (98-107) Carbon Dioxide Level 24 MMOL/L (21-32) Anion Gap 9 mmol/L (5-15) Blood Urea Nitrogen 46 mg/dL (7-18) Creatinine 2.0 MG/DL (0.55-1.30) Estimat Glomerular Filtration Rate 32.9 mL/min (>60) Glucose Level 125 MG/DL (74-106) Calcium Level 7.8 MG/DL (8.5-10.1) Total Bilirubin 0.5 MG/DL (0.2-1.0) Aspartate Amino Transf (AST/SGOT) 16 U/L (15-37) Alanine Aminotransferase (ALT/SGPT) 25 U/L (12-78) Alkaline Phosphatase 72 U/L (46-116) Total Protein 4.9 G/DL (6.4-8.2) Albumin 1.8 G/DL (3.4-5.0) Globulin 3.1 g/dL Albumin/Globulin Ratio 0.6 (1.0-2.7) Height (Feet): 5 Height (Inches): 7.00 Weight (Pounds): 242 Objective PE General Appearance: no apparent distress, alert HEENT: atraumatic, anicteric Neck: normal alignment, supple Respiratory/Chest: lungs clear, normal breath sounds, no respiratory distress Cardiovascular/Chest: normal rate, regular rhythm Abdomen: non tender, soft, no organomegaly Extremities: non-tender, normal inspection Skin Exam: warm/dry, cyanotic Neurologic: alert Kana Paul MD Jun 23, 2019 06:32
--- NOTE | 2019-06-23 07:29 | NUR ---
HAND-OFF: Report given to CHINO SLAUGHTER RN. Pt remains stable.
--- NOTE | 2019-06-23 07:30 | NUR ---
NURSE NOTES: Report received from Ramírez Campoverde RN.Pt awake,alert sitting up on bed eating breakfast,noted no resp distress on 3 L NC,denies any c/o pain or discomfort SR on the monitor,Rivero cath draining dark mary urine,skin warm and dry IV site to LFA intact ,SR up x2 call light within reach at bedside,bed lock in lowest position will continue with plans of care
[2019-06-23 08:00] VITALS: BP 151/78
--- NOTE | 2019-06-23 08:17 | Cardiology Progress Note ---
Assessment/Plan Status: stable Assessment/Plan Assessment/Plan 73 year old man with HTN, IDDM, ? history of CVA who [place] [facility] [place],vomiting and hypertensive urgency and SOB -Empiric ABX and IV fluids -> WBC now normal, no fevers, cultures negative -BiPAP prn, continue pulmonary rehab/toilet/CPT, serial chest x ray -V/Q and LE US negative for thrombus, CXR with cardiomegaly and interstitial prominence -Echocardiogram with LVEF 40% and PA pressure 55 mmHG and elevated right atrial pressures. -Continue diuresis to lower filling pressures, recommend repeating limited Echocardiogram once dry weight achieved to re-evaluate pulmonary/filling pressures -Continue low dose metoprolol 25 mg BID for systolic dysfunction and titrate -Start aldactone when creatinine <1.5, currently ARB/ACEI held due to ZARINA/ATN -Stress test prior to discharge when pulmonary status stable. -Defer cardiac cath given lack of chest pain and poor renal function -D/c troponin check, d/c anticoagulation given low platelets, no indication for transfusion no bleeding noted -Transfer to floor Subjective Cardiovascular: Reports: no symptoms Respiratory: Reports: no symptoms Gastrointestinal/Abdominal: Reports: no symptoms Genitourinary: Reports: no symptoms Subjective Patient stable in [place], has not been using BiPAP, on 3 liters oxygen, no complaints, creatonine down to 2.0, WBC coming down, no fevers. Objective Last 24 Hour Vital Signs Date Time Temp Pulse Resp B/P (MAP) Pulse Ox O2 Delivery O2 Flow Rate FiO2 06/23/19 04:00 98.4 81 22 138/69 (92) 98 06/23/19 04:00 Nasal Cannula 3.0 06/23/19 04:00 76 06/23/19 00:00 72 06/23/19 00:00 97.8 70 22 133/63 (86) 99 06/23/19 00:00 Nasal Cannula 3.0 06/22/19 22:00 3.0 06/22/19 20:43 80 149/70 06/22/19 20:00 Nasal Cannula 3.0 06/22/19 20:00 81 06/22/19 20:00 96.4 79 21 149/70 (96) 99 06/22/19 18:23 83 18 97 Nasal Cannula 2.0 28 06/22/19 18:23 97 Nasal Cannula 2.0 28 06/22/19 16:00 Nasal Cannula 3.0 06/22/19 16:00 97.9 83 19 125/59 (81) 99 06/22/19 15:23 74 06/22/19 12:00 Nasal Cannula 3.0 06/22/19 12:00 88 06/22/19 12:00 98.1 96 21 112/59 (76) 97 06/22/19 08:53 89 104/65 General Appearance: no apparent distress, alert EENT: PERRL/EOMI, normal ENT inspection, TMs normal, pharynx normal Neck: non-tender, normal alignment, supple, normal inspection, no JVD Rhythm: NSR Cardiovascular: normal peripheral pulses, normal rate, regular rhythm Respiratory/Chest: chest wall non-tender, lungs clear, normal breath sounds, no respiratory distress, no accessory muscle use Abdomen: normal bowel sounds, non tender, soft, no organomegaly, no mass Extremities: normal range of motion, non-tender, normal inspection, no calf tenderness, no swelling Neurologic: coordinator of evaluation II-XII grossly normal, no motor/sensory deficits Intake and Output 06/22/19 06/23/19 19:00 07:00 Intake Total 887.5 ml 100 ml Output Total 900 ml 900 ml Balance -12.5 ml -800 ml Intake Oral 600 ml IV Total 287.5 ml 100 ml Output Urine Total 900 ml 900 ml Laboratory Tests Test 06/22/19 18:09 06/23/19 03:57 Urine Color Yellow Urine Appearance Cloudy Urine pH 5 (4.5-8.0) Urine Specific [place] 1.015 (1.005-1.035) Urine Protein 3+ (NEGATIVE) H Urine Glucose (UA) Negative (NEGATIVE) Urine Ketones Negative (NEGATIVE) Urine Blood 5+ (NEGATIVE) H Urine Nitrite Negative (NEGATIVE) Urine Bilirubin Negative (NEGATIVE) Urine Urobilinogen Normal MG/DL (0.0-1.0) Urine Leukocyte Esterase 2+ (NEGATIVE) H Urine RBC Tntc /HPF (0 - 0) H Urine WBC 10-15 /HPF (0 - 0) H Urine Squamous Epithelial Cells Occasional /LPF Urine Amorphous Sediment Many /LPF (NONE) H Urine Bacteria Many /HPF (NONE) H Urine Granular Casts 0-2 /LPF (NONE) H White Blood Count 16.3 K/UL (4.8-10.8) H Red Blood Count 3.60 M/UL (4.70-6.10) L Hemoglobin 10.4 G/DL (14.2-18.0) L Hematocrit 30.5 % (42.0-52.0) L Mean Corpuscular Volume 85 FL (80-99) Mean Corpuscular Hemoglobin 28.8 PG (27.0-31.0) Mean Corpuscular Hemoglobin Concent 34.0 G/DL (32.0-36.0) Red Cell Distribution Width 12.6 % (11.6-14.8) Platelet Count 41 K/UL (150-450) L Mean Platelet Volume 13.1 FL (6.5-10.1) H Neutrophils (%) (Auto) % (45.0-75.0) Lymphocytes (%) (Auto) % (20.0-45.0) Monocytes (%) (Auto) % (1.0-10.0) Eosinophils (%) (Auto) % (0.0-3.0) Basophils (%) (Auto) % (0.0-2.0) Neutrophils % (Manual) Pending Lymphocytes % (Manual) Pending Platelet Estimate Pending Platelet Morphology Pending Sodium Level 142 MMOL/L (136-145) Potassium Level 3.6 MMOL/L (3.5-5.1) Chloride Level 109 MMOL/L (98-107) H Carbon Dioxide Level 24 MMOL/L (21-32) Anion Gap 9 mmol/L (5-15) Blood Urea Nitrogen 46 mg/dL (7-18) H Creatinine 2.0 MG/DL (0.55-1.30) H Estimat Glomerular Filtration Rate 32.9 mL/min (>60) Glucose Level 125 MG/DL (74-106) H Calcium Level 7.8 MG/DL (8.5-10.1) L Total Bilirubin 0.5 MG/DL (0.2-1.0) Aspartate Amino Transf (AST/SGOT) 16 U/L (15-37) Alanine Aminotransferase (ALT/SGPT) 25 U/L (12-78) Alkaline Phosphatase 72 U/L (46-116) Total Protein 4.9 G/DL (6.4-8.2) L Albumin 1.8 G/DL (3.4-5.0) L Globulin 3.1 g/dL Albumin/Globulin Ratio 0.6 (1.0-2.7) L Paul Reed MD Jun 23, 2019 08:17
[2019-06-23] MEDS ORDERED: Lexiscan 0.4mg/5ml syringe IV PRN (08:30)
[2019-06-23] MEDS ORDERED: Lexiscan 0.4mg/5ml syringe IV SCH (08:30)
[2019-06-23] MEDS: Aspirin Baby 81mg NG SCH (09:43)
[2019-06-23] MEDS: Pantoprazole Inj IVP SCH (09:43)
--- NOTE | 2019-06-23 09:50 | NUR ---
NURSE NOTES: Pt with diarrhea stools ,bed bath given ,kept dry and clean.
--- NOTE | 2019-06-23 11:32 | NUR ---
ST NOTES: REFERRED FOR SWALLOWING EVALUATION BY DR TONY, SEE REPORT DYSPHAGIA RISK FACTORS FOR THIS 73 Y.O.M.: ACUTE ISSUES: SEVERE SEPSIS, NAUSEA/VOMITING (NOT NOW) AND DIARRHEA (STILL HAS), RIGHT MID AND LOWER LUNG INFILTRATES ON 06/20/19 CXR (NEG 06/15 ADMIT). RESP FAILURE NEEDED BIPAP NOW 3 LITERS NC GOOD SP02 AND RESP RATE 20-22, HIGH BLOOD PRESSURE, GENERAL WEAKNESS. H/O GERD (ON PROTONIX NOW), ACUTE HEAD INJURY 06/02/19 (HAS WORD-FINDING DIFFICULTY LUNCH FOR BREAKFAST BUT OX4) CT HEAD THEN LEFT SCALP CONTUSION, MILD BRAIN ATROPHY, NEG ACUTE, DIABETES, HTN. PER PT, HE STILL SMOKES (SINCE 14 YEARS OF AGE 1 PPD AND ETOH USE/ABUSE SINCE 16 Y.O. QUIT 10 YEARS AGO). NO POLST NOR ADVANCE DIRECTIVE IF TUBE FEEDINGS NEEDED. AT HOME ON REGULAR TEXTURE DIET/LIQUIDS, NOW ON FULL LIQUIDS WITH GOOD INTAKE EXCEPT FOR HOT CEREAL (DISLIKES). PER RN, NO COUGH ON WHOLE MEDS AND WATER BUT DID COUGH ON WATER AT TIMES. PER PATIENT, HE COUGHS ON WATER AT TIMES. ALERT AND ORIENTED, ABLE TO EXPRESS NEEDS. GROSSLY FUNCTIONAL COUGH, VOICE, AND OROMOTOR SKILLS. HAS MOST DENTITION. INITIAL IMPRESSIONS: S/S OF DYSPHAGIA WITH THIN LIQUIDS WITH REPORTED COUGHING WITH THIN LIQUIDS VIA CUP PER RN APPEARS TO HAVE GROSSLY FUNCTIONAL SWALLOW WITH NECTAR THICK LIQUIDS VIA STRAW SEQUENTIAL SIPS, PUREED TSP (WITH THE EXCEPTION OF A MILD EFFORTFUL AND 2 SECOND DELAY BEFORE THE SWALLOW, FAIR HYOLARYNGEAL EXCURSION), AND MASTICATED SOLIDS (1/2 CRACKER). ? SILENT ASPIRATION RISK BUT MAY HAVE RISK DUE TO PRIOR MILD HEAD INJURY AND IF RESP RATE TOO RAPID ABOVE 25 BPM. RECOMMENDATIONS CONTINUE WITH PO INTAKE BUT UPGRADE TO SOFT CHEW (OK PER DR ISABEL SANCHES) BUT DOWNGRADE TO NECTAR THICK LIQUIDS FOR NOW WITH POSTED ASPIRATION AND REFLUX PRECAUTIONS AND SUPERVISION OF MEALS PRN. PER RD MAKE DIET TYPE LOWFAT CONSIDER MODIFIED BARIUM SWALLOW STUDY IP OR OP IF DC TO FURTHER ASSESS SWALLOW ESPECIALLY WITH THIN LIQUIDS (COUGHS AT TIMES AND HAS LUNG INFILTRATES). SKILLED DYSPHAGIA MANAGEMENT AND TX, COG-COM EVAL/TX IF INDICATED (WORD-FINDING ERROR NOTED AND HAS H/O MILD HEAD INJURY) EDUCATED/TRAINED RN CHINO IN POSTED PRECAUTIONS.
--- NOTE | 2019-06-23 11:52 | Nephrology Progress Note ---
Assessment/Plan Plan #acute kidney injury - on baseline CKD- Fena 0.4% suggestive of pre-renal aztemia- however UA with sediments and RBC concerning for developing ATN- patient with baseline diabetic nephropathy - improving #sepsis #acute pancreatitis # Hypokalemia, hypopmagnesemia #lactic acidosis- improved #HTN- stable #DM- #NSTEMI- on lovenox #hypernatremia - monitor Cr - diuretics prn - GI eval advance as tolerated - antibiotics per ID- - avoid supratherapeutic vanco level - heparin on hold for thrombocytopenia - HIT? - cardiology eval - ischemia eval? #HTN - hold lisinopril - resume amldipine 5mg daily #DM - hold metformin - ISS Subjective Subjective Breathing stable today BP uptrending Cr improving WBC uptrending thrombocytopenia noted switched to vanco Objective Objective Last 24 Hour Vital Signs Date Time Temp Pulse Resp B/P (MAP) Pulse Ox O2 Delivery O2 Flow Rate FiO2 06/23/19 09:43 92 151/78 06/23/19 08:00 80 06/23/19 08:00 Nasal Cannula 3.0 06/23/19 08:00 97.2 92 20 151/78 (102) 100 06/23/19 04:00 98.4 81 22 138/69 (92) 98 06/23/19 04:00 Nasal Cannula 3.0 06/23/19 04:00 76 06/23/19 00:00 72 06/23/19 00:00 97.8 70 22 133/63 (86) 99 06/23/19 00:00 Nasal Cannula 3.0 06/22/19 22:00 3.0 06/22/19 20:43 80 149/70 06/22/19 20:00 Nasal Cannula 3.0 06/22/19 20:00 81 06/22/19 20:00 96.4 79 21 149/70 (96) 99 06/22/19 18:23 83 18 97 Nasal Cannula 2.0 28 06/22/19 18:23 97 Nasal Cannula 2.0 28 06/22/19 16:00 Nasal Cannula 3.0 06/22/19 16:00 97.9 83 19 125/59 (81) 99 06/22/19 15:23 74 06/22/19 12:00 Nasal Cannula 3.0 06/22/19 12:00 88 06/22/19 12:00 98.1 96 21 112/59 (76) 97 Intake and Output 06/22/19 06/23/19 19:00 07:00 Intake Total 887.5 ml 100 ml Output Total 900 ml 900 ml Balance -12.5 ml -800 ml Intake Oral 600 ml IV Total 287.5 ml 100 ml Output Urine Total 900 ml 900 ml Laboratory Tests 06/22/19 18:09: Urine Color Yellow, Urine Appearance Cloudy, Urine pH 5, Urine Specific [place] 1.015, Urine Protein 3+H, Urine Glucose (UA) Negative, Urine Ketones Negative, Urine Blood 5+H, Urine Nitrite Negative, Urine Bilirubin Negative, Urine Urobilinogen Normal, Urine Leukocyte Esterase 2+H, Urine RBC TntcH, Urine WBC 10 -15H, Urine Squamous Epithelial Cells Occasional, Urine Amorphous Sediment ManyH , Urine Bacteria ManyH, Urine Granular Casts 0-2H 06/23/19 03:57: White Blood Count 16.3H, Red Blood Count 3.60L, Hemoglobin 10.4L, Hematocrit 30.5L, Mean Corpuscular Volume 85, Mean Corpuscular Hemoglobin 28.8, Mean Corpuscular Hemoglobin Concent 34.0, Red Cell Distribution Width 12.6, Platelet Count 41L, Mean Platelet Volume 13.1H, Neutrophils (%) (Auto) , Lymphocytes (%) (Auto) , Monocytes (%) (Auto) , Eosinophils (%) (Auto) , Basophils (%) (Auto) , Differential Total Cells Counted 100, Neutrophils % (Manual) 84H, Lymphocytes % (Manual) 9L, Monocytes % (Manual) 3, Eosinophils % (Manual) 4H, Basophils % ( Manual) 0, Band Neutrophils 0, Platelet Estimate DecreasedL, Platelet Morphology Normal, Red Blood Cell Morphology Normal, Sodium Level 142, Potassium Level 3.6, Chloride Level 109H, Carbon Dioxide Level 24, Anion Gap 9, Blood Urea Nitrogen 46H, Creatinine 2.0H, Estimat Glomerular Filtration Rate 32.9, Glucose Level 125H, Calcium Level 7.8L, Total Bilirubin 0.5, Aspartate Amino Transf (AST/SGOT) 16, Alanine Aminotransferase (ALT/SGPT) 25, Alkaline Phosphatase 72, Total Protein 4.9L, Albumin 1.8L, Globulin 3.1, Albumin/ Globulin Ratio 0.6L Height (Feet): 5 Height (Inches): 7.00 Weight (Pounds): 242 Objective General Appearance: Alert - no distress Lines, tubes and drains: peripheral HEENT: normocephalic, atraumatic Neck: non-tender, normal alignment Respiratory/Chest: chest wall non-tender, lungs clear, normal breath sounds Cardiovascular/Chest: normal rate, regular rhythm Abdomen: normal bowel sounds, non tender, soft Extremities: non-tender, normal inspection Skin Exam: normal pigmentation, no diaphoresis Gerson Salgado M.D. Jun 23, 2019 11:52
[2019-06-23 12:00] VITALS: BP 162/101
--- NOTE | 2019-06-23 12:00 | NUR ---
NURSE NOTES: Pt stable no c/o pain or discomfort, at bedside.
--- NOTE | 2019-06-23 12:11 | Infectious Diseases Prog Note ---
Assessment/Plan Assessment/Plan 1. klebsiella bacteremia, sepsis, shock, pna vs chf, ? cap, aspiration risk, leukocytosis, pancreatitis, pseudocyst, ct noted, ? uti lgt and worsening leukocytosis, fungemia risk - ceftriaxone and flagyl - day # 8 abx - vancomycin for line coverage, diflucan for fungemia coverage - picc line removed - f/u on labs and chest x-ray, CT noted - legionella urine antigen negative, mycoplasma igm wnl, sc-ng - becca care - continue treatment per primary care team and consultants - d/w renal medicine 2. Shock - improved, off pressors 3. Shortness of breath, hypoxia, on BiPAP - improved, off pressors 4. Pulmonary followup. 5. Acute renal failure. 6. Anemia. 7. Diabetes. 8. Hypertension. 9. Blood sugar and blood pressure treatment per primary care team. 10. Possible CVA history. 11. No known drug allergies. 12. Social history is negative. 13. Family history is noncontributory. 14. MAR was noted. 15. Case discussed with RN. 16. Continue treatment per primary consultants. 17. ICU care. 18. Skin care protocol. 19. Orders were noted and entered. 20. GI followup. Subjective Constitutional: Denies: fever HEENT: Denies: congestion Respiratory: Denies: shortness of breath Cardiovascular: Denies: chest pain Gastrointestinal/Abdominal: Reports: diarrhea; Denies: nausea, vomiting Allergies: Coded Allergies: No Known Allergies (Unverified , 06/02/19) Objective Vital Signs Last 24 Hour Vital Signs Date Time Temp Pulse Resp B/P (MAP) Pulse Ox O2 Delivery O2 Flow Rate FiO2 06/23/19 09:43 92 151/78 06/23/19 08:00 80 06/23/19 08:00 Nasal Cannula 3.0 06/23/19 08:00 97.2 92 20 151/78 (102) 100 06/23/19 04:00 98.4 81 22 138/69 (92) 98 06/23/19 04:00 Nasal Cannula 3.0 06/23/19 04:00 76 06/23/19 00:00 72 06/23/19 00:00 97.8 70 22 133/63 (86) 99 06/23/19 00:00 Nasal Cannula 3.0 06/22/19 22:00 3.0 3/1/20 20:43 80 149/70 06/22/19 20:00 Nasal Cannula 3.0 06/22/19 20:00 81 06/22/19 20:00 96.4 79 21 149/70 (96) 99 06/22/19 18:23 83 18 97 Nasal Cannula 2.0 28 06/22/19 18:23 97 Nasal Cannula 2.0 28 06/22/19 16:00 Nasal Cannula 3.0 06/22/19 16:00 97.9 83 19 125/59 (81) 99 06/22/19 15:23 74 Height (Feet): 5 Height (Inches): 7.00 Weight (Pounds): 242 General Appearance: no acute distress HEENT: normocephalic, atraumatic, anicteric, mucous membranes moist Respiratory/Chest: no respiratory distress, no accessory muscle use, rhonchi - bilaterally Cardiovascular: normal rate, regular rhythm Abdomen: normal bowel sounds, soft, non tender, no organomegaly Extremities: no cyanosis Objective Chest x-ray - 06/17/19 - Procedure: XRAY Chest 1v Indication: Dyspnea Comparison: 06/15/2019 A single view chest radiograph was obtained. Findings: Pulmonary vascular interstitial prominence demonstrated with cardiomegaly. There is a left-sided PICC line with the tip projected over the SVC. Old right clavicle fracture noted. IMPRESSION: Mild CHF CT abdomen and pelvis - 06/15/19 - Impression: Unilocular left upper quadrant cystic mass adjacent to the tail of pancreas and the greater curvature of the stomach. Favor pancreatic pseudocyst, particularly in view of evidence of pancreatic atrophy. However, cystic neoplasm of pancreatic, gastric, or other origin also possible. Consider contrast MRI for better characterization Small ventral hernia containing a single small loop of small bowel, no definite obstruction or strangulation related to such Mildly distended proximal small bowel with slow forward transit of ingested contrast. Suspect ileus or enteritis, although early/partial small bowel obstruction also possible. Correlate with clinical findings Mild distal soft tissue wall thickening, esophagitis possible. Correlate with clinical findings Bilateral basilar pulmonary parenchymal infiltrates versus edema, fairly extensive Cardiomegaly. Apparent bladder wall thickening. Probably an artifact of lack of distention, but cystitis also possible Nonspecific bilateral perinephric fat stranding. Suspect chronic although acute renal inflammation also possible Chest x-ray - 06/20/19 - Procedure: XRAY Chest 1v Indication: Cough Technique: One view of the chest Comparison: 06/19/2019 Findings: Right mid and lower lung infiltrates, generalized interstitial congestion persists, unchanged. Cardiomegaly again demonstrated. Impression: Unchanged, over one day, findings as above. CT abdomen and pelvis - 06/20/19 - Impression: Left upper quadrant cystic mass adjacent to the pancreatic tail and greater curvature the stomach, also reported previously, equivocally slightly larger currently. As previously described, most likely a pancreatic pseudocyst. Cystic pancreatic neoplasm also possible Trace ascites. This is a new finding since the prior exam. Bilateral pleural effusions and bilateral pulmonary parenchymal compressive atelectasis. Likewise a new finding since previous study Nonspecific bilateral perinephric fat stranding, also previously reported Bilateral basilar pulmonary interstitial and airspace edema Generalized edema of the subcutaneous fat Portable cardiomegaly Empty bladder with a Rivero catheter Degenerative spondylosis Microbiology Date/Time Source Procedure Growth Status 06/22/19 18:09 Indwelling Cath Urine Culture - Preliminary NO GROWTH Resulted Laboratory Tests Test 06/22/19 18:09 06/23/19 03:57 Urine Color Yellow Urine Appearance Cloudy Urine pH 5 (4.5-8.0) Urine Specific [place] 1.015 (1.005-1.035) Urine Protein 3+ (NEGATIVE) H Urine Glucose (UA) Negative (NEGATIVE) Urine Ketones Negative (NEGATIVE) Urine Blood 5+ (NEGATIVE) H Urine Nitrite Negative (NEGATIVE) Urine Bilirubin Negative (NEGATIVE) Urine Urobilinogen Normal MG/DL (0.0-1.0) Urine Leukocyte Esterase 2+ (NEGATIVE) H Urine RBC Tntc /HPF (0 - 0) H Urine WBC 10-15 /HPF (0 - 0) H Urine Squamous Epithelial Cells Occasional /LPF Urine Amorphous Sediment Many /LPF (NONE) H Urine Bacteria Many /HPF (NONE) H Urine Granular Casts 0-2 /LPF (NONE) H White Blood Count 16.3 K/UL (4.8-10.8) H Red Blood Count 3.60 M/UL (4.70-6.10) L Hemoglobin 10.4 G/DL (14.2-18.0) L Hematocrit 30.5 % (42.0-52.0) L Mean Corpuscular Volume 85 FL (80-99) Mean Corpuscular Hemoglobin 28.8 PG (27.0-31.0) Mean Corpuscular Hemoglobin Concent 34.0 G/DL (32.0-36.0) Red Cell Distribution Width 12.6 % (11.6-14.8) Platelet Count 41 K/UL (150-450) L Mean Platelet Volume 13.1 FL (6.5-10.1) H Neutrophils (%) (Auto) % (45.0-75.0) Lymphocytes (%) (Auto) % (20.0-45.0) Monocytes (%) (Auto) % (1.0-10.0) Eosinophils (%) (Auto) % (0.0-3.0) Basophils (%) (Auto) % (0.0-2.0) Differential Total Cells Counted 100 Neutrophils % (Manual) 84 % (45-75) H Lymphocytes % (Manual) 9 % (20-45) L Monocytes % (Manual) 3 % (1-10) Eosinophils % (Manual) 4 % (0-3) H Basophils % (Manual) 0 % (0-2) Band Neutrophils 0 % (0-8) Platelet Estimate Decreased L Platelet Morphology Normal Red Blood Cell Morphology Normal Sodium Level 142 MMOL/L (136-145) Potassium Level 3.6 MMOL/L (3.5-5.1) Chloride Level 109 MMOL/L (98-107) H Carbon Dioxide Level 24 MMOL/L (21-32) Anion Gap 9 mmol/L (5-15) Blood Urea Nitrogen 46 mg/dL (7-18) H Creatinine 2.0 MG/DL (0.55-1.30) H Estimat Glomerular Filtration Rate 32.9 mL/min (>60) Glucose Level 125 MG/DL (74-106) H Calcium Level 7.8 MG/DL (8.5-10.1) L Total Bilirubin 0.5 MG/DL (0.2-1.0) Aspartate Amino Transf (AST/SGOT) 16 U/L (15-37) Alanine Aminotransferase (ALT/SGPT) 25 U/L (12-78) Alkaline Phosphatase 72 U/L (46-116) Total Protein 4.9 G/DL (6.4-8.2) L Albumin 1.8 G/DL (3.4-5.0) L Globulin 3.1 g/dL Albumin/Globulin Ratio 0.6 (1.0-2.7) L Current Medications Medications (Trade) Dose Ordered Sig/Arley Route PRN Reason Start Time Stop Time Status Last Admin Dose Admin Acetaminophen (Tylenol) 650 mg Q4H PRN ORAL Mild Pain (Pain Scale 1-3) 06/20/19 18:05 07/15/19 18:04 Albumin Human 50 ml @ 50 mls/hr DAILY PRN IV For hypotension 06/20/19 18:09 07/20/19 18:08 Amlodipine Besylate (Norvasc) 5 mg DAILY ORAL 06/24/19 09:00 07/24/19 08:59 Aspirin (ASA) 81 mg DAILY NG 06/21/19 09:00 07/20/19 08:59 06/23/19 09:43 Bisacodyl (Dulcolax) 10 mg DAILYPRN PRN RECTAL Constipation 06/20/19 18:07 07/15/19 18:06 Ceftriaxone Sodium 1 gm/ Dextrose 50 ml @ 100 mls/hr Q24H IVPB 06/23/19 17:00 06/27/19 16:59 UNV Chlorhexidine Gluconate (Mena-Hex 2%) 1 applic DAILY@2000 TOPIC 06/20/19 20:00 07/16/19 19:59 06/21/19 21:06 Dextrose (Dextrose 50%) 25 ml Q30M PRN IV Hypoglycemia 06/20/19 18:06 07/16/19 18:05 Dextrose (Dextrose 50%) 50 ml Q30M PRN IV Hypoglycemia 06/20/19 18:06 07/16/19 18:05 Hydromorphone HCl (Dilaudid) 0.5 mg Q4H PRN IVP Moderate Pain (Pain Scale 4-6) 06/20/19 18:08 06/23/19 18:07 06/22/19 03:25 Insulin Aspart (NovoLOG) AC+HS SUBQ 06/21/19 11:30 07/20/19 17:59 06/23/19 12:01 Magnesium Hydroxide (Mom) 30 ml HSPRN PRN ORAL Constipation 06/20/19 21:00 07/15/19 20:59 Metoprolol Tartrate (Lopressor) 25 mg Q12HR ORAL 06/20/19 21:00 07/20/19 08:59 3/2/20 09:43 Ondansetron HCl (Zofran) 4 mg Q6H PRN IVP Nausea & Vomiting 06/20/19 18:06 07/15/19 18:05 Pantoprazole (Protonix) 40 mg DAILY IVP 06/21/19 09:00 07/16/19 08:59 06/23/19 09:43 Regadenoson (Lexiscan) 0.4 mg ONCE PRN IV STRESS TEST 06/23/19 08:30 06/26/19 08:29 Vancomycin HCl (Vanco rx to dose) 1 ea DAILY PRN MISC Per rx protocol 06/22/19 16:15 07/22/19 16:14 Pranay Waller MD Jun 23, 2019 12:11
--- NOTE | 2019-06-23 12:30 | Diagnostic Imaging Report ---
Indication: Dyspnea Comparison: 06/12/2019 A single view chest radiograph was obtained. Findings: No definite infiltrate or pulmonary vascular congestion identified. The heart is enlarged. The aorta is mildly enlarged consistent with atherosclerotic vascular disease. The bones are osteopenic. There are thoracic vertebral enthesophytes at multiple levels. Impression: No acute disease
--- NOTE | 2019-06-23 12:34 | General Progress Note ---
Assessment/Plan Problem List: (1) Acute kidney injury superimposed on CKD ICD Codes: N17.9 - Acute kidney failure, unspecified; N18.9 - Chronic kidney disease, unspecified SNOMED: 98288799, 842745482 (2) Sepsis ICD Codes: A41.9 - Sepsis, unspecified organism SNOMED: 55595984 Qualifiers: Qualified Codes: A41.9 - Sepsis, unspecified organism; R65.21 - Severe sepsis with septic shock; N17.9 - Acute kidney failure, unspecified (3) Elevated troponin ICD Codes: R79.89 - Other specified abnormal findings of blood chemistry SNOMED: 136917242, 971846565, [id number] Status: stable Assessment/Plan: diarrhea anemia esophagitis CM pancreatic pseudocyst on full liquid diet>>> will advance to low fat diet patient will need EUS but given elevated trop will hold for now repeat CT reviewed abx per id fu cardiology ad nephrology repeat labs in am ppi stool studies Subjective ROS Limited/Unobtainable: Yes Allergies: Coded Allergies: No Known Allergies (Unverified , 06/02/19) Objective Last 24 Hour Vital Signs Date Time Temp Pulse Resp B/P (MAP) Pulse Ox O2 Delivery O2 Flow Rate FiO2 06/23/19 09:43 92 151/78 06/23/19 08:00 80 06/23/19 08:00 Nasal Cannula 3.0 06/23/19 08:00 97.2 92 20 151/78 (102) 100 06/23/19 04:00 98.4 81 22 138/69 (92) 98 06/23/19 04:00 Nasal Cannula 3.0 06/23/19 04:00 76 06/23/19 00:00 72 06/23/19 00:00 97.8 70 22 133/63 (86) 99 06/23/19 00:00 Nasal Cannula 3.0 06/22/19 22:00 3.0 06/22/19 20:43 80 149/70 06/22/19 20:00 Nasal Cannula 3.0 06/22/19 20:00 81 06/22/19 20:00 96.4 79 21 149/70 (96) 99 06/22/19 18:23 83 18 97 Nasal Cannula 2.0 28 06/22/19 18:23 97 Nasal Cannula 2.0 28 06/22/19 16:00 Nasal Cannula 3.0 06/22/19 16:00 97.9 83 19 125/59 (81) 99 06/22/19 15:23 74 Intake and Output 06/22/19 06/23/19 19:00 07:00 Intake Total 887.5 ml 100 ml Output Total 900 ml 900 ml Balance -12.5 ml -800 ml Intake Oral 600 ml IV Total 287.5 ml 100 ml Output Urine Total 900 ml 900 ml Laboratory Tests 06/22/19 18:09: Urine Color Yellow, Urine Appearance Cloudy, Urine pH 5, Urine Specific [place] 1.015, Urine Protein 3+H, Urine Glucose (UA) Negative, Urine Ketones Negative, Urine Blood 5+H, Urine Nitrite Negative, Urine Bilirubin Negative, Urine Urobilinogen Normal, Urine Leukocyte Esterase 2+H, Urine RBC TntcH, Urine WBC 10 -15H, Urine Squamous Epithelial Cells Occasional, Urine Amorphous Sediment ManyH , Urine Bacteria ManyH, Urine Granular Casts 0-2H 06/23/19 03:57: White Blood Count 16.3H, Red Blood Count 3.60L, Hemoglobin 10.4L, Hematocrit 30.5L, Mean Corpuscular Volume 85, Mean Corpuscular Hemoglobin 28.8, Mean Corpuscular Hemoglobin Concent 34.0, Red Cell Distribution Width 12.6, Platelet Count 41L, Mean Platelet Volume 13.1H, Neutrophils (%) (Auto) , Lymphocytes (%) (Auto) , Monocytes (%) (Auto) , Eosinophils (%) (Auto) , Basophils (%) (Auto) , Differential Total Cells Counted 100, Neutrophils % (Manual) 84H, Lymphocytes % (Manual) 9L, Monocytes % (Manual) 3, Eosinophils % (Manual) 4H, Basophils % ( Manual) 0, Band Neutrophils 0, Platelet Estimate DecreasedL, Platelet Morphology Normal, Red Blood Cell Morphology Normal, Sodium Level 142, Potassium Level 3.6, Chloride Level 109H, Carbon Dioxide Level 24, Anion Gap 9, Blood Urea Nitrogen 46H, Creatinine 2.0H, Estimat Glomerular Filtration Rate 32.9, Glucose Level 125H, Calcium Level 7.8L, Total Bilirubin 0.5, Aspartate Amino Transf (AST/SGOT) 16, Alanine Aminotransferase (ALT/SGPT) 25, Alkaline Phosphatase 72, Total Protein 4.9L, Albumin 1.8L, Globulin 3.1, Albumin/ Globulin Ratio 0.6L Height (Feet): 5 Height (Inches): 7.00 Weight (Pounds): 242 General Appearance: alert EENT: normal ENT inspection Neck: supple Cardiovascular: normal rate Respiratory/Chest: decreased breath sounds Abdomen: normal bowel sounds, non tender, soft Extremities: non-tender Peyman Akbar MD Jun 23, 2019 12:34
--- NOTE | 2019-06-23 13:30 | NUR ---
NURSE NOTES: Dr Moran at bedside,updated re pt's status.
--- NOTE | 2019-06-23 13:33 | Pulmonology Progress Note ---
Assessment/Plan Problems: (1) Sepsis (2) Hypoxia (3) Left upper quadrant abdominal mass (4) Thrombocytopenia (5) Acute kidney injury superimposed on CKD Assessment/Plan BiPAP PRN and qHS Titrate FiO2 HHN's Monitor volumes and renal function ABx per ID, F/U Cx's F/U cards recs ? ischemia eval once acute issues resolve F/U GI recs, F/U CA-19-9 Monitor platelets, F/U HIT Ab panel Cautious PO only when off BiPAP with STRICT ASPIRATION precautions In the future should have a CT chest (screening) when acute issues resolve DVT Px: SCD's FC Subjective Allergies: Coded Allergies: No Known Allergies (Unverified , 06/02/19) Subjective AFVSS O2 needs stable Did not use BiPAP ON [employer], stool sent for C diff Weak cough no SOB no FC no CP Objective Last 24 Hour Vital Signs Date Time Temp Pulse Resp B/P (MAP) Pulse Ox O2 Delivery O2 Flow Rate FiO2 06/23/19 09:43 92 151/78 06/23/19 08:00 80 06/23/19 08:00 Nasal Cannula 3.0 06/23/19 08:00 97.2 92 20 151/78 (102) 100 06/23/19 04:00 98.4 81 22 138/69 (92) 98 06/23/19 04:00 Nasal Cannula 3.0 06/23/19 04:00 76 06/23/19 00:00 72 06/23/19 00:00 97.8 70 22 133/63 (86) 99 06/23/19 00:00 Nasal Cannula 3.0 06/22/19 22:00 3.0 06/22/19 20:43 80 149/70 06/22/19 20:00 Nasal Cannula 3.0 06/22/19 20:00 81 06/22/19 20:00 96.4 79 21 149/70 (96) 99 06/22/19 18:23 83 18 97 Nasal Cannula 2.0 28 06/22/19 18:23 97 Nasal Cannula 2.0 28 06/22/19 16:00 Nasal Cannula 3.0 06/22/19 16:00 97.9 83 19 125/59 (81) 99 06/22/19 15:23 74 Intake and Output 06/22/19 06/23/19 19:00 07:00 Intake Total 887.5 ml 100 ml Output Total 900 ml 900 ml Balance -12.5 ml -800 ml Intake Oral 600 ml IV Total 287.5 ml 100 ml Output Urine Total 900 ml 900 ml General Appearance: no acute distress, other - Ob M HEENT: normocephalic, atraumatic, anicteric, mucous membranes moist Respiratory/Chest: chest wall non-tender, lungs clear, normal breath sounds, no respiratory distress, no accessory muscle use Cardiovascular: normal peripheral pulses, normal rate, regular rhythm Abdomen: normal bowel sounds, soft, non tender, no organomegaly, non distended , no mass Extremities: no cyanosis, no clubbing, no edema Microbiology Date/Time Source Procedure Growth Status 06/22/19 18:09 Indwelling Cath Urine Culture - Preliminary NO GROWTH Resulted Laboratory Tests 06/22/19 18:09: Urine Color Yellow, Urine Appearance Cloudy, Urine pH 5, Urine Specific [place] 1.015, Urine Protein 3+H, Urine Glucose (UA) Negative, Urine Ketones Negative, Urine Blood 5+H, Urine Nitrite Negative, Urine Bilirubin Negative, Urine Urobilinogen Normal, Urine Leukocyte Esterase 2+H, Urine RBC TntcH, Urine WBC 10 -15H, Urine Squamous Epithelial Cells Occasional, Urine Amorphous Sediment ManyH , Urine Bacteria ManyH, Urine Granular Casts 0-2H 06/23/19 03:57: White Blood Count 16.3H, Red Blood Count 3.60L, Hemoglobin 10.4L, Hematocrit 30.5L, Mean Corpuscular Volume 85, Mean Corpuscular Hemoglobin 28.8, Mean Corpuscular Hemoglobin Concent 34.0, Red Cell Distribution Width 12.6, Platelet Count 41L, Mean Platelet Volume 13.1H, Neutrophils (%) (Auto) , Lymphocytes (%) (Auto) , Monocytes (%) (Auto) , Eosinophils (%) (Auto) , Basophils (%) (Auto) , Differential Total Cells Counted 100, Neutrophils % (Manual) 84H, Lymphocytes % (Manual) 9L, Monocytes % (Manual) 3, Eosinophils % (Manual) 4H, Basophils % ( Manual) 0, Band Neutrophils 0, Platelet Estimate DecreasedL, Platelet Morphology Normal, Red Blood Cell Morphology Normal, Sodium Level 142, Potassium Level 3.6, Chloride Level 109H, Carbon Dioxide Level 24, Anion Gap 9, Blood Urea Nitrogen 46H, Creatinine 2.0H, Estimat Glomerular Filtration Rate 32.9, Glucose Level 125H, Calcium Level 7.8L, Total Bilirubin 0.5, Aspartate Amino Transf (AST/SGOT) 16, Alanine Aminotransferase (ALT/SGPT) 25, Alkaline Phosphatase 72, Total Protein 4.9L, Albumin 1.8L, Globulin 3.1, Albumin/ Globulin Ratio 0.6L Current Medications Medications (Trade) Dose Ordered Sig/Arley Route PRN Reason Start Time Stop Time Status Last Admin Dose Admin Acetaminophen (Tylenol) 650 mg Q4H PRN ORAL Mild Pain (Pain Scale 1-3) 06/20/19 18:05 07/15/19 18:04 Albumin Human 50 ml @ 50 mls/hr DAILY PRN IV For hypotension 06/20/19 18:09 07/20/19 18:08 Amlodipine Besylate (Norvasc) 5 mg DAILY ORAL 06/24/19 09:00 07/24/19 08:59 Aspirin (ASA) 81 mg DAILY NG 06/21/19 09:00 07/20/19 08:59 06/23/19 09:43 Bisacodyl (Dulcolax) 10 mg DAILYPRN PRN RECTAL Constipation 06/20/19 18:07 07/15/19 18:06 Ceftriaxone Sodium 1 gm/ Dextrose 50 ml @ 100 mls/hr Q24H IVPB 06/23/19 17:00 06/27/19 16:59 Chlorhexidine Gluconate (Mena-Hex 2%) 1 applic DAILY@2000 TOPIC 06/20/19 20:00 07/16/19 19:59 06/21/19 21:06 Dextrose (Dextrose 50%) 25 ml Q30M PRN IV Hypoglycemia 06/20/19 18:06 07/16/19 18:05 Dextrose (Dextrose 50%) 50 ml Q30M PRN IV Hypoglycemia 06/20/19 18:06 07/16/19 18:05 Fluconazole/ Sodium Chloride 100 ml @ 100 mls/hr Q24H IV 06/23/19 14:00 06/30/19 13:59 Hydromorphone HCl (Dilaudid) 0.5 mg Q4H PRN IVP Moderate Pain (Pain Scale 4-6) 06/20/19 18:08 06/23/19 18:07 06/22/19 03:25 Insulin Aspart (NovoLOG) AC+HS SUBQ 06/21/19 11:30 07/20/19 17:59 06/23/19 12:01 Magnesium Hydroxide (Mom) 30 ml HSPRN PRN ORAL Constipation 06/20/19 21:00 07/15/19 20:59 Metoprolol Tartrate (Lopressor) 25 mg Q12HR ORAL 06/20/19 21:00 07/20/19 08:59 06/23/19 09:43 Metronidazole (Flagyl) 500 mg EVERY 8 HOURS ORAL 06/23/19 14:00 06/30/19 13:59 Ondansetron HCl (Zofran) 4 mg Q6H PRN IVP Nausea & Vomiting 06/20/19 18:06 07/15/19 18:05 Pantoprazole (Protonix) 40 mg DAILY IVP 06/21/19 09:00 07/16/19 08:59 06/23/19 09:43 Regadenoson (Lexiscan) 0.4 mg ONCE PRN IV STRESS TEST 06/23/19 08:30 06/26/19 08:29 Vancomycin HCl (Vanco rx to dose) 1 ea DAILY PRN MISC Per rx protocol 06/22/19 16:15 07/22/19 16:14 Homero Moran MD Jun 23, 2019 13:33
--- NOTE | 2019-06-23 13:53 | General Progress Note ---
Assessment/Plan Problem List: (1) Renal failure ICD Codes: N19 - Unspecified kidney failure SNOMED: 32786071 Qualifiers: Qualified Codes: N17.9 - Acute kidney failure, unspecified (2) Transient hypotension ICD Codes: I95.9 - Hypotension, unspecified SNOMED: 05624752363872 (3) Sepsis ICD Codes: A41.9 - Sepsis, unspecified organism SNOMED: 33968669 Qualifiers: Qualified Codes: A41.9 - Sepsis, unspecified organism; R65.21 - Severe sepsis with septic shock; N17.9 - Acute kidney failure, unspecified (4) Hypoxia ICD Codes: R09.02 - Hypoxemia SNOMED: 954901162 Status: doing well, stable, progressing Assessment/Plan: 73 year old man with HTN, IDDM, ? history of CVA who presented to [facility] with nausea,vomiting. #septic shock, POA #Klebsiella bacteremia -ICU --> [facility] -Stopped IV fluids due to hypoxemia -cont antibiotics as per ID recs -ceftriaxone and flagyl - day # 7 abx -Vancomycin, fluconazole added for line, fungal coverage. #acute hypoxic resp failure without hypercarbia -intermittent BiPAP -continue inhaled bronchodilators -Pulm/CCM following -bipap prn and QHS #NSTEMI, peak trop of 2, likely due to demand ischemia -Stop heparin due to thrombocytopenia -Cardiology following #acute kidney injury on CKD, possible ATN -IV hydration stopped as above -Nephrology following -monitor BMP -avoid nephrotoxic meds -scr with improvement #acute pancreatitis -Advance diet as per GI -? Need for EUS #Thrombocytopenia, no active bleeding noted #Rule out HIT -off heparin -transfuse for Platelets < 20K -cont to monitor daily CBC -f/u HIT panel -Hematology consult appreciated #Hypokalemia, hypomagnesemia -replace and monitor labs #lactic acidosis #HTN -cont to hold BP meds #DM type 2 -ISS VTE PPx Heparin Full Code I spent 36 minutes on this encounter. > 50% spent on counselling and care coordination, extra 36 minutes spent on chart review of pertinent patient information, including labs, imaging, medications, prior physician/performance improvement consultant documentation. Subjective Date patient seen: Jun 23, 2019 Time patient seen: 10:35 ROS Limited/Unobtainable: No Constitutional: Denies: no symptoms, chills, diaphoresis, fever, malaise, weakness, other HEENT: Denies: no symptoms, eye pain, blurred vision, tearing, double vision, ear pain, ear discharge, nose pain, nose congestion, throat pain, throat swelling, mouth pain, mouth swelling, other Cardiovascular: Denies: no symptoms, chest pain, edema, irregular heart rate, lightheadedness, palpitations, syncope, other Respiratory: Denies: no symptoms, cough, orthopnea, shortness of breath, SOB with excertion, SOB at rest, sputum, stridor, wheezing, other Gastrointestinal/Abdominal: Denies: no symptoms, abdomen distended, abdominal pain, black stools, tarry stools, blood in stool, constipated, diarrhea, difficulty swallowing, nausea, poor appetite, poor fluid intake, rectal bleeding , vomiting, other Genitourinary: Denies: no symptoms, burning, discharge, frequency, flank pain, hematuria, incontinence, pain, urgency, other Neurologic/Psychiatric: Denies: no symptoms, anxiety, depressed, emotional problems, headache, numbness, paresthesia, pre-existing deficit, seizure, tingling, tremors, weakness, other Endocrine: Denies: no symptoms, excessive sweating, flushing, intolerance to cold, intolerance to heat, increased hunger, increased thirst, increased urine, unexplained weight gain, unexplained weight loss, other Hematologic/Lymphatic: Denies: no symptoms, anemia, easy bleeding, easy bruising, other Allergies: Coded Allergies: No Known Allergies (Unverified , 06/02/19) Subjective sitting in chair, eating lunch, with at bedside. ambulating small distances around bed without any SOB, cough. feels [facility] better overall Objective Last 24 Hour Vital Signs Date Time Temp Pulse Resp B/P (MAP) Pulse Ox O2 Delivery O2 Flow Rate FiO2 06/23/19 09:43 92 151/78 06/23/19 08:00 80 06/23/19 08:00 Nasal Cannula 3.0 06/23/19 08:00 97.2 92 20 151/78 (102) 100 06/23/19 04:00 98.4 81 22 138/69 (92) 98 06/23/19 04:00 Nasal Cannula 3.0 06/23/19 04:00 76 06/23/19 00:00 72 06/23/19 00:00 97.8 70 22 133/63 (86) 99 06/23/19 00:00 Nasal Cannula 3.0 06/22/19 22:00 3.0 06/22/19 20:43 80 149/70 06/22/19 20:00 Nasal Cannula 3.0 06/22/19 20:00 81 06/22/19 20:00 96.4 79 21 149/70 (96) 99 06/22/19 18:23 83 18 97 Nasal Cannula 2.0 28 06/22/19 18:23 97 Nasal Cannula 2.0 28 06/22/19 16:00 Nasal Cannula 3.0 06/22/19 16:00 97.9 83 19 125/59 (81) 99 06/22/19 15:23 74 Intake and Output 06/22/19 06/23/19 19:00 07:00 Intake Total 887.5 ml 100 ml Output Total 900 ml 900 ml Balance -12.5 ml -800 ml Intake Oral 600 ml IV Total 287.5 ml 100 ml Output Urine Total 900 ml 900 ml Laboratory Tests 06/22/19 18:09: Urine Color Yellow, Urine Appearance Cloudy, Urine pH 5, Urine Specific [place] 1.015, Urine Protein 3+H, Urine Glucose (UA) Negative, Urine Ketones Negative, Urine Blood 5+H, Urine Nitrite Negative, Urine Bilirubin Negative, Urine Urobilinogen Normal, Urine Leukocyte Esterase 2+H, Urine RBC TntcH, Urine WBC 10 -15H, Urine Squamous Epithelial Cells Occasional, Urine Amorphous Sediment ManyH , Urine Bacteria ManyH, Urine Granular Casts 0-2H 06/23/19 03:57: White Blood Count 16.3H, Red Blood Count 3.60L, Hemoglobin 10.4L, Hematocrit 30.5L, Mean Corpuscular Volume 85, Mean Corpuscular Hemoglobin 28.8, Mean Corpuscular Hemoglobin Concent 34.0, Red Cell Distribution Width 12.6, Platelet Count 41L, Mean Platelet Volume 13.1H, Neutrophils (%) (Auto) , Lymphocytes (%) (Auto) , Monocytes (%) (Auto) , Eosinophils (%) (Auto) , Basophils (%) (Auto) , Differential Total Cells Counted 100, Neutrophils % (Manual) 84H, Lymphocytes % (Manual) 9L, Monocytes % (Manual) 3, Eosinophils % (Manual) 4H, Basophils % ( Manual) 0, Band Neutrophils 0, Platelet Estimate DecreasedL, Platelet Morphology Normal, Red Blood Cell Morphology Normal, Sodium Level 142, Potassium Level 3.6, Chloride Level 109H, Carbon Dioxide Level 24, Anion Gap 9, Blood Urea Nitrogen 46H, Creatinine 2.0H, Estimat Glomerular Filtration Rate 32.9, Glucose Level 125H, Calcium Level 7.8L, Total Bilirubin 0.5, Aspartate Amino Transf (AST/SGOT) 16, Alanine Aminotransferase (ALT/SGPT) 25, Alkaline Phosphatase 72, Total Protein 4.9L, Albumin 1.8L, Globulin 3.1, Albumin/ Globulin Ratio 0.6L Height (Feet): 5 Height (Inches): 7.00 Weight (Pounds): 242 General Appearance: no apparent distress, alert Neck: supple Cardiovascular: normal rate, regular rhythm Respiratory/Chest: lungs clear, normal breath sounds, no respiratory distress Abdomen: non tender, soft Extremities: normal range of motion Neurologic: alert, oriented x 3, responsive Ama Mallory M.D. Jun 23, 2019 13:53
[2019-06-23] MEDS: metroNIDAZOLE 500mg tab ORAL SCH ×2 (14:36→22:52)
[2019-06-23 16:00] VITALS: BP 130/61
--- NOTE | 2019-06-23 16:22 | NUR ---
[employer]CH[employer] SI; HYPOTENSION,NAUSEA, RESP FAILURE T. 97.2 HR 92 RR 18 B/P 150/78 3L NC O2 SAT @ 98% WBC 16.3 BUN 46 CR 2.0 IS: CEFTRIAXONE IV DIFLUCAN IV FLAGYL PO STEP DOWN STATUS
[2019-06-23] MEDS: cefTRIAXone 1 GM in D5W 50 ML IVPB SCH (17:55)
--- NOTE | 2019-06-23 18:00 | NUR ---
NURSE NOTES: Pt resting quietly in bed no resp distress presented stable
--- NOTE | 2019-06-23 19:14 | NUR ---
HAND-OFF: Report given to Ramírez Yan RN.
--- NOTE | 2019-06-23 19:36 | NUR ---
NURSE NOTES: Pt report received from SUKHJINDER RN. pt remains stable. pt is alert and oriented times 4, able to follow commands. pt is on 3 L NC, satting at 99%, no resp distress noted. pt is on ekg monitor tech showing NSR, no signs symptoms of cardiac distress noted. pt bed is low, locked, armed, call light within reach, bed rails up times 3. will follow plan of care.
[2019-06-23 20:00] VITALS: BP 161/71
[2019-06-23] MEDS: Dyna-Hex 2% Top Sol 2oz TOPIC SCH (20:00)
[2019-06-23] MEDS ORDERED: Vancomycin 1.5gm/NS Premix q24h IVPB ONE (20:00)
--- NOTE | 2019-06-23 22:54 | NUR ---
RESPIRATORY NOTE: Pt placed on BiPAP for nightly use. Pt now on new settings per MD Luisa Addendum: 06/23/19 at 2259 by RUTH ANN FRANCO RT Pt on BiPAP 10/5, back up rate 14, 35%. Pt on a Full Face mask, skin intact, no redness/breakdowns noted. Foam tape applied on pt's forehead/cheek/chin to prevent mask irritations. Pt is alert/awake, follows commands. B/S joe. diminished, nonproductive cough. BiPAP plugged into red outlet, alarms on & audible. Pt resting comfortably, denies SOB/chest pain, in no apparent distress at this time. Will continue plan of care.
[2019-06-24] VITALS: BP 161/72
[2019-06-24 04:00] VITALS: BP 168/73
[2019-06-24 05:37] LABS: HEMATOCRIT 32.3 % (42.0-52.0); MEAN CORPUSCULAR VOLUME 85 FL (80-99); PLATELET COUNT 63 K/UL (150-450); RED BLOOD COUNT 3.78 M/UL (4.70-6.10); RED CELL DISTRIBUTION WIDTH 12.9 % (11.6-14.8); WHITE BLOOD COUNT 14.6 K/UL (4.8-10.8)
[2019-06-24] MEDS: NovoLOG Insulin Flexpen SUBQ SCH ×4 (05:58→21:21)
[2019-06-24] MEDS: metroNIDAZOLE 500mg tab ORAL SCH ×3 (06:04→21:18)
[2019-06-24 06:09] LABS: ALANINE AMINOTRANSFERASE 22 U/L (12-78); ALBUMIN 1.7 G/DL (3.4-5.0); ALBUMIN/GLOBULIN RATIO 0.5 (1.0-2.7); ALKALINE PHOSPHATASE 72 U/L (46-116); AMYLASE 88 U/L (25-115); ANION GAP 14 mmol/L (5-15); ASPARTATE AMINO TRANSFERASE 14 U/L (15-37); BILIRUBIN,TOTAL 0.4 MG/DL (0.2-1.0); BLOOD UREA NITROGEN 37 mg/dL (7-18); CALCIUM 8.1 MG/DL (8.5-10.1); CARBON DIOXIDE 20 MMOL/L (21-32); CHLORIDE 111 MMOL/L (98-107); CREATININE 1.7 MG/DL (0.55-1.30); POTASSIUM 3.8 MMOL/L (3.5-5.1); SODIUM 145 MMOL/L (136-145)
--- NOTE | 2019-06-24 06:38 | Hematology/Onc Progress Note ---
Assessment/Plan Assessment/Plan Assessment and recs: # Thrombocytopenia - potential causes multifactorial, in this case due to sepsis , less likely due to heparin --> Hep panel and HIV are negative --> US abd to evaluate for cirrhosis and hsm ordered and none noted --> Peripheral smear ordered to evaluate for blasts /schistocytes --> abx and other meds have been reviewed --> ok for ppx if plt >50k w/ either heparin or lovenox --> Transfuse if Plt < 20k and fever, or if Plt < 10k without fever --> plt trend 41-->49k-->63k # 10.7 cm unilocular cystic structure in the left upper quadrant retroperitoneal , corresponding to findings reported on recent CT scan. Most likely represents a pancreatic pseudocyst. --> continue to monitor as per gi --> repeat us or ct in short order, weeks to months to re-eval --> repeat ct showed mild enlargement of cyst/mass, will need further repeat imaging # DM, ? history of CVA who presented to [facility] with nausea,vomiting. --> a1c goal <8, accuchecks qac/qhs # Septic shock, POA, possible biliary source --> cont ICU level of care --> cont IV hydration --> on abx, as per pulm/cc # Acute hypoxic resp failure without hypercarbia --> Intermittent BiPAP --> continue inhaled bronchodilators # NSTEMI, peak trop of 2, likely due to demand ischemia --> Stop heparin due to thrombocytopenia --> duplex lower legs is neg --> HIT neg --> per cards # Acute kidney injury on CKD, possible ATN --> Nephrology following # Acute pancreatitis --> hydration # HTN --> cont to hold BP meds # DM type 2 --> ISS # Dvt ppx scds Appreciate consultation and sydney Rn Subjective Constitutional: Denies: no symptoms, chills, fever, malaise, weakness, other HEENT: Denies: no symptoms, eye pain, blurred vision, tearing, double vision, ear pain, ear discharge, nose pain, nose congestion, throat pain, throat swelling, mouth pain, mouth swelling, other Cardiovascular: Denies: no symptoms, chest pain, edema, irregular heart rate, lightheadedness, palpitations, syncope, other Respiratory: Denies: no symptoms, cough, shortness of breath, SOB with excertion, SOB at rest, sputum, wheezing, other Neurologic/Psychiatric: Denies: no symptoms, anxiety, depressed, emotional problems, headache, numbness, paresthesia, pre-existing deficit, seizure, tingling, tremors, weakness, other Endocrine: Denies: no symptoms, excessive sweating, flushing, intolerance to cold, intolerance to heat, increased hunger, increased thirst, increased urine, unexplained weight gain, unexplained weight loss, other Hematologic/Lymphatic: Denies: no symptoms, anemia, easy bleeding, easy bruising, adenopathy, other Allergies: Coded Allergies: No Known Allergies (Unverified , 06/02/19) Subjective 06/20: awake and alert, no overnight events, v mask 06/22: plts remain low, in the 40s, off anticaog, sydney rn, pending labs 06/22: is on broad spectrum abx, fluncon, ctx, flagyl, vanc, no f/c Objective Objective Current Medications Medications (Trade) Dose Ordered Sig/Arley Route PRN Reason Start Time Stop Time Status Last Admin Dose Admin Acetaminophen (Tylenol) 650 mg Q4H PRN ORAL Mild Pain (Pain Scale 1-3) 06/20/19 18:05 07/15/19 18:04 Albumin Human 50 ml @ 50 mls/hr DAILY PRN IV For hypotension 06/20/19 18:09 07/20/19 18:08 Amlodipine Besylate (Norvasc) 5 mg DAILY ORAL 06/24/19 09:00 07/24/19 08:59 Aspirin (ASA) 81 mg DAILY NG 06/21/19 09:00 07/20/19 08:59 06/23/19 09:43 Bisacodyl (Dulcolax) 10 mg DAILYPRN PRN RECTAL Constipation 06/20/19 18:07 07/15/19 18:06 Ceftriaxone Sodium 1 gm/ Dextrose 50 ml @ 100 mls/hr Q24H IVPB 06/23/19 17:00 06/27/19 16:59 06/23/19 17:55 Chlorhexidine Gluconate (Mena-Hex 2%) 1 applic DAILY@2000 TOPIC 06/20/19 20:00 07/16/19 19:59 06/21/19 21:06 Dextrose (Dextrose 50%) 25 ml Q30M PRN IV Hypoglycemia 06/20/19 18:06 07/16/19 18:05 Dextrose (Dextrose 50%) 50 ml Q30M PRN IV Hypoglycemia 06/20/19 18:06 07/16/19 18:05 Fluconazole/ Sodium Chloride 100 ml @ 100 mls/hr Q24H IV 06/23/19 14:00 06/30/19 13:59 06/23/19 14:36 Insulin Aspart (NovoLOG) AC+HS SUBQ 06/21/19 11:30 07/20/19 17:59 06/23/19 20:45 Magnesium Hydroxide (Mom) 30 ml HSPRN PRN ORAL Constipation 06/20/19 21:00 07/15/19 20:59 Metoprolol Tartrate (Lopressor) 25 mg Q12HR ORAL 06/20/19 21:00 07/20/19 08:59 06/23/19 20:42 Metronidazole (Flagyl) 500 mg EVERY 8 HOURS ORAL 06/23/19 14:00 06/30/19 13:59 06/24/19 06:04 Ondansetron HCl (Zofran) 4 mg Q6H PRN IVP Nausea & Vomiting 06/20/19 18:06 07/15/19 18:05 Pantoprazole (Protonix) 40 mg DAILY IVP 06/21/19 09:00 07/16/19 08:59 06/23/19 09:43 Regadenoson (Lexiscan) 0.4 mg ONCE PRN IV STRESS TEST 06/23/19 08:30 06/26/19 08:29 Vancomycin HCl (Vanco rx to dose) 1 ea DAILY PRN MISC Per rx protocol 06/22/19 16:15 07/22/19 16:14 Last 24 Hour Vital Signs Date Time Temp Pulse Resp B/P (MAP) Pulse Ox O2 Delivery O2 Flow Rate FiO2 06/24/19 05:26 70 19 97 35 06/24/19 04:00 70 06/24/19 04:00 Bi-pap 06/24/19 04:00 98.8 73 18 168/73 (104) 98 06/24/19 02:50 67 16 98 35 06/24/19 01:15 73 16 99 35 06/24/19 00:00 Bi-pap 06/24/19 00:00 97.7 70 18 161/72 (101) 99 06/24/19 00:00 68 06/23/19 23:00 35 06/23/19 22:50 69 18 97 35 06/23/19 22:00 3.0 06/23/19 20:42 75 163/67 06/23/19 20:00 Nasal Cannula 3.0 06/23/19 20:00 97.4 81 18 161/71 (101) 98 06/23/19 20:00 78 06/23/19 19:06 82 20 98 Nasal Cannula 2.0 28 06/23/19 19:06 98 Nasal Cannula 2.0 28 06/23/19 18:18 96 Nasal Cannula 2.0 28 06/23/19 18:15 89 20 96 Nasal Cannula 2.0 28 06/23/19 16:00 98.0 74 18 130/61 (84) 97 06/23/19 16:00 76 06/23/19 16:00 Nasal Cannula 3.0 06/23/19 12:00 Nasal Cannula 3.0 06/23/19 12:00 97.8 80 20 162/101 (121) 100 06/23/19 12:00 78 06/23/19 09:43 92 151/78 06/23/19 08:00 80 06/23/19 08:00 Nasal Cannula 3.0 06/23/19 08:00 97.2 92 20 151/78 (102) 100 06/23/19 04:00 98.4 81 22 138/69 (92) 98 06/23/19 04:00 Nasal Cannula 3.0 06/23/19 04:00 76 06/23/19 00:00 72 06/23/19 00:00 97.8 70 22 133/63 (86) 99 06/23/19 00:00 Nasal Cannula 3.0 06/22/19 22:00 3.0 06/22/19 20:43 80 149/70 06/22/19 20:00 Nasal Cannula 3.0 06/22/19 20:00 81 06/22/19 20:00 96.4 79 21 149/70 (96) 99 06/22/19 18:23 83 18 97 Nasal Cannula 2.0 28 06/22/19 18:23 97 Nasal Cannula 2.0 28 06/22/19 16:00 Nasal Cannula 3.0 06/22/19 16:00 97.9 83 19 125/59 (81) 99 06/22/19 15:23 74 06/22/19 12:00 Nasal Cannula 3.0 06/22/19 12:00 88 06/22/19 12:00 98.1 96 21 112/59 (76) 97 06/22/19 08:53 89 104/65 06/22/19 08:00 98.1 89 20 104/65 (78) 96 89 06/22/19 08:00 Bi-pap 06/22/19 08:00 89 06/22/19 07:00 90 19 95 Nasal Cannula 2.0 28 06/22/19 07:00 95 Nasal Cannula 2.0 28 Intake and Output 06/23/19 06/24/19 19:00 07:00 Intake Total 980 ml 275.0 ml Output Total 1350 ml 1000 ml Balance -370 ml -725.0 ml Intake Oral 980 ml IV Total 275.0 ml Output Urine Total 1350 ml 1000 ml # Bowel Movements 1 2 Labs Test 06/21/19 07:25 06/22/19 02:49 06/22/19 03:24 06/22/19 08:11 White Blood Count 12.9 K/UL (4.8-10.8) 13.8 K/UL (4.8-10.8) Red Blood Count 4.00 M/UL (4.70-6.10) 4.30 M/UL (4.70-6.10) Hemoglobin 11.4 G/DL (14.2-18.0) 12.4 G/DL (14.2-18.0) Hematocrit 34.5 % (42.0-52.0) 36.4 % (42.0-52.0) Mean Corpuscular Volume 86 FL (80-99) 85 FL (80-99) Mean Corpuscular Hemoglobin 28.5 PG (27.0-31.0) 28.8 PG (27.0-31.0) Mean Corpuscular Hemoglobin Concent 33.1 G/DL (32.0-36.0) 34.0 G/DL (32.0-36.0) Red Cell Distribution Width 12.3 % (11.6-14.8) 12.1 % (11.6-14.8) Platelet Count 41 K/UL (150-450) 49 K/UL (150-450) Mean Platelet Volume 11.5 FL (6.5-10.1) 13.0 FL (6.5-10.1) Neutrophils (%) (Auto) % (45.0-75.0) % (45.0-75.0) Lymphocytes (%) (Auto) % (20.0-45.0) % (20.0-45.0) Monocytes (%) (Auto) % (1.0-10.0) % (1.0-10.0) Eosinophils (%) (Auto) % (0.0-3.0) % (0.0-3.0) Basophils (%) (Auto) % (0.0-2.0) % (0.0-2.0) Differential Total Cells Counted 100 100 Neutrophils % (Manual) 77 % (45-75) 92 % (45-75) Lymphocytes % (Manual) 8 % (20-45) 4 % (20-45) Monocytes % (Manual) 12 % (1-10) 3 % (1-10) Eosinophils % (Manual) 2 % (0-3) 1 % (0-3) Basophils % (Manual) 1 % (0-2) 0 % (0-2) Band Neutrophils 0 % (0-8) 0 % (0-8) Platelet Estimate Decreased Decreased Platelet Morphology Normal Normal Hypochromasia 1+ Anisocytosis 1+ Sodium Level 143 MMOL/L (136-145) 147 MMOL/L (136-145) Potassium Level 4.2 MMOL/L (3.5-5.1) 3.8 MMOL/L (3.5-5.1) Chloride Level 110 MMOL/L (98-107) 113 MMOL/L (98-107) Carbon Dioxide Level 23 MMOL/L (21-32) 20 MMOL/L (21-32) Anion Gap 10 mmol/L (5-15) 15 mmol/L (5-15) Blood Urea Nitrogen 61 mg/dL (7-18) 50 mg/dL (7-18) Creatinine 2.3 MG/DL (0.55-1.30) 2.2 MG/DL (0.55-1.30) Estimat Glomerular Filtration Rate 28.0 mL/min (>60) 29.5 mL/min (>60) Glucose Level 121 MG/DL (74-106) 158 MG/DL (74-106) Calcium Level 8.4 MG/DL (8.5-10.1) 8.0 MG/DL (8.5-10.1) Amylase Level 91 U/L (25-115) Lipase 533 U/L (73-393) Arterial Blood pH 7.376 (7.350-7.450) 7.430 (7.350-7.450) Arterial Blood Partial Pressure CO2 27.7 mmHg (35.0-45.0) 29.2 mmHg (35.0-45.0) Arterial Blood Partial Pressure O2 79.9 mmHg (75.0-100.0) 63.1 mmHg (75.0-100.0) Arterial Blood HCO3 15.9 mmol/L (22.0-26.0) 18.9 mmol/L (22.0-26.0) Arterial Blood Oxygen Saturation 94.8 % (95-100) 91.8 % (95-100) Arterial Blood Base Excess -7.8 (-2-2) -4.3 (-2-2) Saul Test Positive Positive Test 06/22/19 18:09 06/23/19 03:57 06/23/19 18:00 06/24/19 03:40 Urine Color Yellow Urine Appearance Cloudy Urine pH 5 (4.5-8.0) Urine Specific [place] 1.015 (1.005-1.035) Urine Protein 3+ (NEGATIVE) Urine Glucose (UA) Negative (NEGATIVE) Urine Ketones Negative (NEGATIVE) Urine Blood 5+ (NEGATIVE) Urine Nitrite Negative (NEGATIVE) Urine Bilirubin Negative (NEGATIVE) Urine Urobilinogen Normal MG/DL (0.0-1.0) Urine Leukocyte Esterase 2+ (NEGATIVE) Urine RBC Tntc /HPF (0 - 0) Urine WBC 10-15 /HPF (0 - 0) Urine Squamous Epithelial Cells Occasional /LPF Urine Amorphous Sediment Many /LPF (NONE) Urine Bacteria Many /HPF (NONE) Urine Granular Casts 0-2 /LPF (NONE) White Blood Count 16.3 K/UL (4.8-10.8) 14.6 K/UL (4.8-10.8) Red Blood Count 3.60 M/UL (4.70-6.10) 3.78 M/UL (4.70-6.10) Hemoglobin 10.4 G/DL (14.2-18.0) 11.0 G/DL (14.2-18.0) Hematocrit 30.5 % (42.0-52.0) 32.3 % (42.0-52.0) Mean Corpuscular Volume 85 FL (80-99) 85 FL (80-99) Mean Corpuscular Hemoglobin 28.8 PG (27.0-31.0) 29.2 PG (27.0-31.0) Mean Corpuscular Hemoglobin Concent 34.0 G/DL (32.0-36.0) 34.2 G/DL (32.0-36.0) Red Cell Distribution Width 12.6 % (11.6-14.8) 12.9 % (11.6-14.8) Platelet Count 41 K/UL (150-450) 63 K/UL (150-450) Mean Platelet Volume 13.1 FL (6.5-10.1) 10.6 FL (6.5-10.1) Neutrophils (%) (Auto) % (45.0-75.0) % (45.0-75.0) Lymphocytes (%) (Auto) % (20.0-45.0) % (20.0-45.0) Monocytes (%) (Auto) % (1.0-10.0) % (1.0-10.0) Eosinophils (%) (Auto) % (0.0-3.0) % (0.0-3.0) Basophils (%) (Auto) % (0.0-2.0) % (0.0-2.0) Differential Total Cells Counted 100 Neutrophils % (Manual) 84 % (45-75) Lymphocytes % (Manual) 9 % (20-45) Monocytes % (Manual) 3 % (1-10) Eosinophils % (Manual) 4 % (0-3) Basophils % (Manual) 0 % (0-2) Band Neutrophils 0 % (0-8) Platelet Estimate Decreased Platelet Morphology Normal Red Blood Cell Morphology Normal Sodium Level 142 MMOL/L (136-145) 145 MMOL/L (136-145) Potassium Level 3.6 MMOL/L (3.5-5.1) 3.8 MMOL/L (3.5-5.1) Chloride Level 109 MMOL/L (98-107) 111 MMOL/L (98-107) Carbon Dioxide Level 24 MMOL/L (21-32) 20 MMOL/L (21-32) Anion Gap 9 mmol/L (5-15) 14 mmol/L (5-15) Blood Urea Nitrogen 46 mg/dL (7-18) 37 mg/dL (7-18) Creatinine 2.0 MG/DL (0.55-1.30) 1.7 MG/DL (0.55-1.30) Estimat Glomerular Filtration Rate 32.9 mL/min (>60) 39.7 mL/min (>60) Glucose Level 125 MG/DL (74-106) 119 MG/DL (74-106) Calcium Level 7.8 MG/DL (8.5-10.1) 8.1 MG/DL (8.5-10.1) Total Bilirubin 0.5 MG/DL (0.2-1.0) 0.4 MG/DL (0.2-1.0) Aspartate Amino Transf (AST/SGOT) 16 U/L (15-37) 14 U/L (15-37) Alanine Aminotransferase (ALT/SGPT) 25 U/L (12-78) 22 U/L (12-78) Alkaline Phosphatase 72 U/L (46-116) 72 U/L (46-116) Total Protein 4.9 G/DL (6.4-8.2) 5.0 G/DL (6.4-8.2) Albumin 1.8 G/DL (3.4-5.0) 1.7 G/DL (3.4-5.0) Globulin 3.1 g/dL 3.3 g/dL Albumin/Globulin Ratio 0.6 (1.0-2.7) 0.5 (1.0-2.7) Random Vancomycin Level 7.5 ug/mL Amylase Level 88 U/L (25-115) Lipase 411 U/L (73-393) Height (Feet): 5 Height (Inches): 7.00 Weight (Pounds): 241 Objective PE General Appearance: no apparent distress, alert HEENT: atraumatic, anicteric Neck: normal alignment, supple Respiratory/Chest: lungs clear, normal breath sounds, no respiratory distress Cardiovascular/Chest: normal rate, regular rhythm Abdomen: non tender, soft, no organomegaly Extremities: non-tender, normal inspection Skin Exam: warm/dry, cyanotic Neurologic: alert Kana Paul MD Jun 24, 2019 06:38
--- NOTE | 2019-06-24 07:10 | NUR ---
HAND-OFF: Report given to CHINO Lima RN. Pt remains stable.
--- NOTE | 2019-06-24 07:45 | NUR ---
NURSE NOTES: Report received from Ramírez Campoverde RN.Pt awake alert siting up on bed eating breakfast noted no resp distress denies any c/o pain or discomfort.Sr on the monitor,skin warm and dry IV site to LFA intact ,SR up x2 HOB elevated,bed lock in lowest position will continue with plans of care.
[2019-06-24 08:00] VITALS: BP 141/75
--- NOTE | 2019-06-24 08:08 | General Progress Note ---
Assessment/Plan Problem List: (1) Acute kidney injury superimposed on CKD ICD Codes: N17.9 - Acute kidney failure, unspecified; N18.9 - Chronic kidney disease, unspecified SNOMED: 78980085, 042666968 (2) Sepsis ICD Codes: A41.9 - Sepsis, unspecified organism SNOMED: 73466123 Qualifiers: Qualified Codes: A41.9 - Sepsis, unspecified organism; R65.21 - Severe sepsis with septic shock; N17.9 - Acute kidney failure, unspecified (3) Elevated troponin ICD Codes: R79.89 - Other specified abnormal findings of blood chemistry SNOMED: 560141839, 850225748, 180298026 Status: doing well, stable, progressing Assessment/Plan: diarrhea anemia esophagitis CM pancreatic pseudocyst on low fat diet patient will need EUS but given elevated trop will hold for now repeat CT reviewed abx per id fu cardiology ad nephrology repeat labs in am ppi stool studies Subjective ROS Limited/Unobtainable: Yes Allergies: Coded Allergies: No Known Allergies (Unverified , 06/02/19) Objective Last 24 Hour Vital Signs Date Time Temp Pulse Resp B/P (MAP) Pulse Ox O2 Delivery O2 Flow Rate FiO2 06/24/19 06:57 98 Nasal Cannula 2.0 28 06/24/19 06:57 78 22 98 Nasal Cannula 2.0 28 06/24/19 05:26 70 19 97 35 06/24/19 04:00 70 06/24/19 04:00 Bi-pap 06/24/19 04:00 98.8 73 18 168/73 (104) 98 06/24/19 02:50 67 16 98 35 06/24/19 01:15 73 16 99 35 06/24/19 00:00 Bi-pap 06/24/19 00:00 97.7 70 18 161/72 (101) 99 06/24/19 00:00 68 06/23/19 23:00 35 06/23/19 22:50 69 18 97 35 06/23/19 22:00 3.0 06/23/19 20:42 75 163/67 06/23/19 20:00 Nasal Cannula 3.0 06/23/19 20:00 97.4 81 18 161/71 (101) 98 06/23/19 20:00 78 06/23/19 19:06 82 20 98 Nasal Cannula 2.0 28 06/23/19 19:06 98 Nasal Cannula 2.0 28 06/23/19 18:18 96 Nasal Cannula 2.0 28 06/23/19 18:15 89 20 96 Nasal Cannula 2.0 28 06/23/19 16:00 98.0 74 18 130/61 (84) 97 06/23/19 16:00 76 06/23/19 16:00 Nasal Cannula 3.0 06/23/19 12:00 Nasal Cannula 3.0 06/23/19 12:00 97.8 80 20 162/101 (121) 100 06/23/19 12:00 78 06/23/19 09:43 92 151/78 Intake and Output 06/23/19 06/24/19 19:00 07:00 Intake Total 980 ml 275.0 ml Output Total 1350 ml 1000 ml Balance -370 ml -725.0 ml Intake Oral 980 ml IV Total 275.0 ml Output Urine Total 1350 ml 1000 ml # Bowel Movements 1 2 Laboratory Tests 06/23/19 18:00: Random Vancomycin Level 7.5 06/24/19 03:40: White Blood Count 14.6H, Red Blood Count 3.78L, Hemoglobin 11.0L, Hematocrit 32.3L, Mean Corpuscular Volume 85, Mean Corpuscular Hemoglobin 29.2, Mean Corpuscular Hemoglobin Concent 34.2, Red Cell Distribution Width 12.9, Platelet Count 63#L, Mean Platelet Volume 10.6H, Neutrophils (%) (Auto) , Lymphocytes (% ) (Auto) , Monocytes (%) (Auto) , Eosinophils (%) (Auto) , Basophils (%) (Auto) , Neutrophils % (Manual) [Pending], Lymphocytes % (Manual) [Pending], Platelet Estimate [Pending], Platelet Morphology [Pending], Sodium Level 145, Potassium Level 3.8, Chloride Level 111H, Carbon Dioxide Level 20L, Anion Gap 14, Blood Urea Nitrogen 37H, Creatinine 1.7H, Estimat Glomerular Filtration Rate 39.7, Glucose Level 119H, Calcium Level 8.1L, Total Bilirubin 0.4, Aspartate Amino Transf (AST/SGOT) 14L, Alanine Aminotransferase (ALT/SGPT) 22, Alkaline Phosphatase 72, Total Protein 5.0L, Albumin 1.7L, Globulin 3.3, Albumin/ Globulin Ratio 0.5L, Amylase Level 88, Lipase 411H Height (Feet): 5 Height (Inches): 7.00 Weight (Pounds): 241 General Appearance: alert EENT: PERRL/EOMI Neck: supple Cardiovascular: normal rate Respiratory/Chest: decreased breath sounds Abdomen: normal bowel sounds, non tender, soft Extremities: non-tender Peyman Akbar MD Jun 24, 2019 08:08
--- NOTE | 2019-06-24 08:15 | Pulmonology Progress Note ---
Assessment/Plan Problems: (1) Sepsis (2) Hypoxia (3) Left upper quadrant abdominal mass (4) Thrombocytopenia (5) Acute kidney injury superimposed on CKD Assessment/Plan BiPAP PRN and qHS Titrate FiO2 HHN's Monitor volumes and renal function ABx per ID, F/U Cx's F/U cards recs ? ischemia eval once acute issues resolve F/U GI recs, F/U CA-19-9, EUS/ERCP when able Monitor platelets, F/U HIT Ab panel Cautious PO only when off BiPAP with STRICT ASPIRATION precautions In the future should have a CT chest (screening) when acute issues resolve DVT Px: SCD's FC Subjective Allergies: Coded Allergies: No Known Allergies (Unverified , 06/02/19) Subjective AFVSS O2 needs stable Used BiPAP ON WCt downtrending Weak cough no SOB no FC no CP Objective Last 24 Hour Vital Signs Date Time Temp Pulse Resp B/P (MAP) Pulse Ox O2 Delivery O2 Flow Rate FiO2 06/24/19 06:57 98 Nasal Cannula 2.0 28 06/24/19 06:57 78 22 98 Nasal Cannula 2.0 28 06/24/19 05:26 70 19 97 35 06/24/19 04:00 70 06/24/19 04:00 Bi-pap 06/24/19 04:00 98.8 73 18 168/73 (104) 98 06/24/19 02:50 67 16 98 35 06/24/19 01:15 73 16 99 35 06/24/19 00:00 Bi-pap 06/24/19 00:00 97.7 70 18 161/72 (101) 99 06/24/19 00:00 68 06/23/19 23:00 35 06/23/19 22:50 69 18 97 35 06/23/19 22:00 3.0 06/23/19 20:42 75 163/67 06/23/19 20:00 Nasal Cannula 3.0 06/23/19 20:00 97.4 81 18 161/71 (101) 98 06/23/19 20:00 78 06/23/19 19:06 82 20 98 Nasal Cannula 2.0 28 06/23/19 19:06 98 Nasal Cannula 2.0 28 06/23/19 18:18 96 Nasal Cannula 2.0 28 3/2/20 18:15 89 20 96 Nasal Cannula 2.0 28 06/23/19 16:00 98.0 74 18 130/61 (84) 97 06/23/19 16:00 76 06/23/19 16:00 Nasal Cannula 3.0 06/23/19 12:00 Nasal Cannula 3.0 06/23/19 12:00 97.8 80 20 162/101 (121) 100 06/23/19 12:00 78 06/23/19 09:43 92 151/78 Intake and Output 06/23/19 06/24/19 19:00 07:00 Intake Total 980 ml 275.0 ml Output Total 1350 ml 1000 ml Balance -370 ml -725.0 ml Intake Oral 980 ml IV Total 275.0 ml Output Urine Total 1350 ml 1000 ml # Bowel Movements 1 2 General Appearance: no acute distress, other - Ob M HEENT: normocephalic, atraumatic, anicteric, mucous membranes moist Respiratory/Chest: chest wall non-tender, lungs clear, normal breath sounds, no respiratory distress, no accessory muscle use Cardiovascular: normal peripheral pulses, normal rate, regular rhythm Abdomen: normal bowel sounds, soft, non tender, no organomegaly, non distended , no mass Extremities: no cyanosis, no clubbing, no edema Microbiology Date/Time Source Procedure Growth Status 06/22/19 16:26 Blood Blood Culture - Preliminary NO GROWTH AFTER 24 HOURS Resulted 06/22/19 16:20 Blood Blood Culture - Preliminary NO GROWTH AFTER 24 HOURS Resulted 06/22/19 18:09 Indwelling Cath Urine Culture - Preliminary NO GROWTH AFTER 24 HOURS Resulted 06/22/19 21:00 Arm Left Catheter Tip Culture - Preliminary NO GROWTH Resulted Laboratory Tests 06/23/19 18:00: Random Vancomycin Level 7.5 06/24/19 03:40: White Blood Count 14.6H, Red Blood Count 3.78L, Hemoglobin 11.0L, Hematocrit 32.3L, Mean Corpuscular Volume 85, Mean Corpuscular Hemoglobin 29.2, Mean Corpuscular Hemoglobin Concent 34.2, Red Cell Distribution Width 12.9, Platelet Count 63#L, Mean Platelet Volume 10.6H, Neutrophils (%) (Auto) , Lymphocytes (% ) (Auto) , Monocytes (%) (Auto) , Eosinophils (%) (Auto) , Basophils (%) (Auto) , Neutrophils % (Manual) [Pending], Lymphocytes % (Manual) [Pending], Platelet Estimate [Pending], Platelet Morphology [Pending], Sodium Level 145, Potassium Level 3.8, Chloride Level 111H, Carbon Dioxide Level 20L, Anion Gap 14, Blood Urea Nitrogen 37H, Creatinine 1.7H, Estimat Glomerular Filtration Rate 39.7, Glucose Level 119H, Calcium Level 8.1L, Total Bilirubin 0.4, Aspartate Amino Transf (AST/SGOT) 14L, Alanine Aminotransferase (ALT/SGPT) 22, Alkaline Phosphatase 72, Total Protein 5.0L, Albumin 1.7L, Globulin 3.3, Albumin/ Globulin Ratio 0.5L, Amylase Level 88, Lipase 411H Current Medications Medications (Trade) Dose Ordered Sig/Arley Route PRN Reason Start Time Stop Time Status Last Admin Dose Admin Acetaminophen (Tylenol) 650 mg Q4H PRN ORAL Mild Pain (Pain Scale 1-3) 06/20/19 18:05 07/15/19 18:04 Albumin Human 50 ml @ 50 mls/hr DAILY PRN IV For hypotension 06/20/19 18:09 07/20/19 18:08 Amlodipine Besylate (Norvasc) 5 mg DAILY ORAL 06/24/19 09:00 07/24/19 08:59 Aspirin (ASA) 81 mg DAILY NG 06/21/19 09:00 07/20/19 08:59 06/23/19 09:43 Bisacodyl (Dulcolax) 10 mg DAILYPRN PRN RECTAL Constipation 06/20/19 18:07 07/15/19 18:06 Ceftriaxone Sodium 1 gm/ Dextrose 50 ml @ 100 mls/hr Q24H IVPB 06/23/19 17:00 06/27/19 16:59 06/23/19 17:55 Chlorhexidine Gluconate (Mena-Hex 2%) 1 applic DAILY@2000 TOPIC 06/20/19 20:00 07/16/19 19:59 06/21/19 21:06 Dextrose (Dextrose 50%) 25 ml Q30M PRN IV Hypoglycemia 06/20/19 18:06 07/16/19 18:05 Dextrose (Dextrose 50%) 50 ml Q30M PRN IV Hypoglycemia 06/20/19 18:06 07/16/19 18:05 Fluconazole/ Sodium Chloride 100 ml @ 100 mls/hr Q24H IV 06/23/19 14:00 06/30/19 13:59 06/23/19 14:36 Insulin Aspart (NovoLOG) AC+HS SUBQ 06/21/19 11:30 07/20/19 17:59 06/23/19 20:45 Magnesium Hydroxide (Mom) 30 ml HSPRN PRN ORAL Constipation 06/20/19 21:00 07/15/19 20:59 Metoprolol Tartrate (Lopressor) 25 mg Q12HR ORAL 06/20/19 21:00 07/20/19 08:59 06/23/19 20:42 Metronidazole (Flagyl) 500 mg EVERY 8 HOURS ORAL 06/23/19 14:00 06/30/19 13:59 06/24/19 06:04 Ondansetron HCl (Zofran) 4 mg Q6H PRN IVP Nausea & Vomiting 06/20/19 18:06 07/15/19 18:05 Pantoprazole (Protonix) 40 mg DAILY IVP 06/21/19 09:00 07/16/19 08:59 06/23/19 09:43 Regadenoson (Lexiscan) 0.4 mg ONCE PRN IV STRESS TEST 06/23/19 08:30 06/26/19 08:29 Vancomycin HCl (Vanco rx to dose) 1 ea DAILY PRN MISC Per rx protocol 06/22/19 16:15 07/22/19 16:14 Homero Moran MD Jun 24, 2019 08:15
--- NOTE | 2019-06-24 08:41 | Nephrology Progress Note ---
Assessment/Plan Plan #acute kidney injury - on baseline CKD- Fena 0.4% suggestive of pre-renal aztemia- however UA with sediments and RBC concerning for developing ATN- patient with baseline diabetic nephropathy - improving #sepsis #acute pancreatitis # Hypokalemia, hypopmagnesemia #lactic acidosis- improved #HTN- stable #DM- #NSTEMI #hypernatremia - renal function improving - monitor Cr - diuretics prn - GI eval advance as tolerated - antibiotics per ID- - avoid supratherapeutic vanco level - heparin on hold for thrombocytopenia - HIT? - cardiology eval - ischemia eval? #HTN - hold lisinopril - resume amldipine 5mg daily - metop 25mg BID #DM - hold metformin - ISS Subjective Subjective Breathing stable today Cr improving WBC coming down metop added - bp better Objective Objective Last 24 Hour Vital Signs Date Time Temp Pulse Resp B/P (MAP) Pulse Ox O2 Delivery O2 Flow Rate FiO2 06/24/19 08:00 97.1 83 18 141/75 (97) 96 06/24/19 06:57 98 Nasal Cannula 2.0 28 06/24/19 06:57 78 22 98 Nasal Cannula 2.0 28 06/24/19 05:26 70 19 97 35 06/24/19 04:00 70 06/24/19 04:00 Bi-pap 06/24/19 04:00 98.8 73 18 168/73 (104) 98 06/24/19 02:50 67 16 98 35 06/24/19 01:15 73 16 99 35 06/24/19 00:00 Bi-pap 06/24/19 00:00 97.7 70 18 161/72 (101) 99 06/24/19 00:00 68 06/23/19 23:00 35 06/23/19 22:50 69 18 97 35 06/23/19 22:00 3.0 06/23/19 20:42 75 163/67 06/23/19 20:00 Nasal Cannula 3.0 06/23/19 20:00 97.4 81 18 161/71 (101) 98 06/23/19 20:00 78 06/23/19 19:06 82 20 98 Nasal Cannula 2.0 28 06/23/19 19:06 98 Nasal Cannula 2.0 28 06/23/19 18:18 96 Nasal Cannula 2.0 28 06/23/19 18:15 89 20 96 Nasal Cannula 2.0 28 06/23/19 16:00 98.0 74 18 130/61 (84) 97 06/23/19 16:00 76 06/23/19 16:00 Nasal Cannula 3.0 06/23/19 12:00 Nasal Cannula 3.0 06/23/19 12:00 97.8 80 20 162/101 (121) 100 06/23/19 12:00 78 06/23/19 09:43 92 151/78 Intake and Output 06/23/19 06/24/19 19:00 07:00 Intake Total 980 ml 275.0 ml Output Total 1350 ml 1000 ml Balance -370 ml -725.0 ml Intake Oral 980 ml IV Total 275.0 ml Output Urine Total 1350 ml 1000 ml # Bowel Movements 1 2 Laboratory Tests 06/23/19 18:00: Random Vancomycin Level 7.5 06/24/19 03:40: White Blood Count 14.6H, Red Blood Count 3.78L, Hemoglobin 11.0L, Hematocrit 32.3L, Mean Corpuscular Volume 85, Mean Corpuscular Hemoglobin 29.2, Mean Corpuscular Hemoglobin Concent 34.2, Red Cell Distribution Width 12.9, Platelet Count 63#L, Mean Platelet Volume 10.6H, Neutrophils (%) (Auto) , Lymphocytes (% ) (Auto) , Monocytes (%) (Auto) , Eosinophils (%) (Auto) , Basophils (%) (Auto) , Neutrophils % (Manual) [Pending], Lymphocytes % (Manual) [Pending], Platelet Estimate [Pending], Platelet Morphology [Pending], Sodium Level 145, Potassium Level 3.8, Chloride Level 111H, Carbon Dioxide Level 20L, Anion Gap 14, Blood Urea Nitrogen 37H, Creatinine 1.7H, Estimat Glomerular Filtration Rate 39.7, Glucose Level 119H, Calcium Level 8.1L, Total Bilirubin 0.4, Aspartate Amino Transf (AST/SGOT) 14L, Alanine Aminotransferase (ALT/SGPT) 22, Alkaline Phosphatase 72, Total Protein 5.0L, Albumin 1.7L, Globulin 3.3, Albumin/ Globulin Ratio 0.5L, Amylase Level 88, Lipase 411H Height (Feet): 5 Height (Inches): 7.00 Weight (Pounds): 241 Objective General Appearance: Alert - no distress Lines, tubes and drains: peripheral HEENT: normocephalic, atraumatic Neck: non-tender, normal alignment Respiratory/Chest: chest wall non-tender, lungs clear, normal breath sounds Cardiovascular/Chest: normal rate, regular rhythm Abdomen: normal bowel sounds, non tender, soft Extremities: non-tender, normal inspection Skin Exam: normal pigmentation, no diaphoresis Gerson Salgado M.D. Jun 24, 2019 08:41
[2019-06-24] MEDS: Pantoprazole Inj IVP SCH (08:54)
[2019-06-24] MEDS: Aspirin Baby 81mg NG SCH (08:54)
[2019-06-24] MEDS ORDERED: Sterile Water Irrig 1000ml IRRIG ONE (08:56)
--- NOTE | 2019-06-24 11:28 | Cardiology Progress Note ---
Assessment/Plan Status: stable Assessment/Plan Assessment/Plan 73 year old man with HTN, IDDM, ? history of CVA who presented to [facility] ED with nausea,vomiting and hypertensive urgency and SOB -Empiric ABX and IV fluids -> WBC now normal, no fevers, cultures negative -BiPAP prn, continue pulmonary rehab/toilet/CPT, serial chest x ray -V/Q and LE US negative for thrombus, CXR with cardiomegaly and interstitial prominence -Echocardiogram with LVEF 40% and PA pressure 55 mmHG and elevated right atrial pressures. -Continue diuresis to lower filling pressures, recommend repeating limited Echocardiogram once dry weight achieved to re-evaluate pulmonary/filling pressures -Continue low dose metoprolol 25 mg BID for systolic dysfunction and titrate -Start aldactone when creatinine <1.5, currently ARB/ACEI held due to ZARINA/ATN -Stress test prior to discharge when pulmonary status stable. Ordered for SUNDAY -Defer cardiac cath given lack of chest pain and poor renal function -D/c troponin check, d/c anticoagulation given low platelets, no indication for transfusion no bleeding noted -Transfer to floor Subjective Cardiovascular: Reports: no symptoms Respiratory: Reports: no symptoms Gastrointestinal/Abdominal: Reports: no symptoms Genitourinary: Reports: no symptoms Subjective Patient stable in [place], has not been using BiPAP, on 3 liters oxygen, no complaints, creatonine down to 2.0, WBC coming down, no fevers. CXR improved Plan for stress test Sunday Objective Last 24 Hour Vital Signs Date Time Temp Pulse Resp B/P (MAP) Pulse Ox O2 Delivery O2 Flow Rate FiO2 06/24/19 08:54 83 141/75 06/24/19 08:54 83 141/75 06/24/19 08:00 97.1 83 18 141/75 (97) 96 06/24/19 06:57 98 Nasal Cannula 2.0 28 06/24/19 06:57 78 22 98 Nasal Cannula 2.0 28 06/24/19 05:26 70 19 97 35 06/24/19 04:00 70 06/24/19 04:00 Bi-pap 06/24/19 04:00 98.8 73 18 168/73 (104) 98 06/24/19 02:50 67 16 98 35 06/24/19 01:15 73 16 99 35 06/24/19 00:00 Bi-pap 06/24/19 00:00 97.7 70 18 161/72 (101) 99 06/24/19 00:00 68 06/23/19 23:00 35 06/23/19 22:50 69 18 97 35 06/23/19 22:00 3.0 06/23/19 20:42 75 163/67 06/23/19 20:00 Nasal Cannula 3.0 06/23/19 20:00 97.4 81 18 161/71 (101) 98 06/23/19 20:00 78 06/23/19 19:06 82 20 98 Nasal Cannula 2.0 28 06/23/19 19:06 98 Nasal Cannula 2.0 28 06/23/19 18:18 96 Nasal Cannula 2.0 28 06/23/19 18:15 89 20 96 Nasal Cannula 2.0 28 06/23/19 16:00 98.0 74 18 130/61 (84) 97 06/23/19 16:00 76 06/23/19 16:00 Nasal Cannula 3.0 06/23/19 12:00 Nasal Cannula 3.0 06/23/19 12:00 97.8 80 20 162/101 (121) 100 06/23/19 12:00 78 General Appearance: no apparent distress, alert EENT: PERRL/EOMI, normal ENT inspection, TMs normal, pharynx normal Neck: non-tender, normal alignment, supple, normal inspection, no JVD Rhythm: NSR Cardiovascular: normal peripheral pulses, normal rate Respiratory/Chest: chest wall non-tender, lungs clear, normal breath sounds, no respiratory distress Abdomen: normal bowel sounds, non tender, soft, no organomegaly Extremities: normal range of motion, non-tender, normal inspection, no calf tenderness, no swelling Neurologic: bearingizer II-XII grossly normal, no motor/sensory deficits Intake and Output 06/23/19 06/24/19 19:00 07:00 Intake Total 980 ml 275.0 ml Output Total 1350 ml 1000 ml Balance -370 ml -725.0 ml Intake Oral 980 ml IV Total 275.0 ml Output Urine Total 1350 ml 1000 ml # Bowel Movements 1 2 Laboratory Tests Test 06/23/19 18:00 06/24/19 03:40 Random Vancomycin Level 7.5 ug/mL White Blood Count 14.6 K/UL (4.8-10.8) H Red Blood Count 3.78 M/UL (4.70-6.10) L Hemoglobin 11.0 G/DL (14.2-18.0) L Hematocrit 32.3 % (42.0-52.0) L Mean Corpuscular Volume 85 FL (80-99) Mean Corpuscular Hemoglobin 29.2 PG (27.0-31.0) Mean Corpuscular Hemoglobin Concent 34.2 G/DL (32.0-36.0) Red Cell Distribution Width 12.9 % (11.6-14.8) Platelet Count 63 K/UL (150-450) #L Mean Platelet Volume 10.6 FL (6.5-10.1) H Neutrophils (%) (Auto) % (45.0-75.0) Lymphocytes (%) (Auto) % (20.0-45.0) Monocytes (%) (Auto) % (1.0-10.0) Eosinophils (%) (Auto) % (0.0-3.0) Basophils (%) (Auto) % (0.0-2.0) Differential Total Cells Counted 100 Neutrophils % (Manual) 87 % (45-75) H Lymphocytes % (Manual) 6 % (20-45) L Monocytes % (Manual) 5 % (1-10) Eosinophils % (Manual) 2 % (0-3) Basophils % (Manual) 0 % (0-2) Band Neutrophils 0 % (0-8) Platelet Estimate Decreased L Platelet Morphology Normal Red Blood Cell Morphology Normal Sodium Level 145 MMOL/L (136-145) Potassium Level 3.8 MMOL/L (3.5-5.1) Chloride Level 111 MMOL/L (98-107) H Carbon Dioxide Level 20 MMOL/L (21-32) L Anion Gap 14 mmol/L (5-15) Blood Urea Nitrogen 37 mg/dL (7-18) H Creatinine 1.7 MG/DL (0.55-1.30) H Estimat Glomerular Filtration Rate 39.7 mL/min (>60) Glucose Level 119 MG/DL (74-106) H Calcium Level 8.1 MG/DL (8.5-10.1) L Total Bilirubin 0.4 MG/DL (0.2-1.0) Aspartate Amino Transf (AST/SGOT) 14 U/L (15-37) L Alanine Aminotransferase (ALT/SGPT) 22 U/L (12-78) Alkaline Phosphatase 72 U/L (46-116) Total Protein 5.0 G/DL (6.4-8.2) L Albumin 1.7 G/DL (3.4-5.0) L Globulin 3.3 g/dL Albumin/Globulin Ratio 0.5 (1.0-2.7) L Amylase Level 88 U/L (25-115) Lipase 411 U/L (73-393) H Microbiology Date/Time Source Procedure Growth Status 06/22/19 16:26 Blood Blood Culture - Preliminary NO GROWTH AFTER 24 HOURS Resulted 06/22/19 16:20 Blood Blood Culture - Preliminary NO GROWTH AFTER 24 HOURS Resulted 06/22/19 18:09 Indwelling Cath Urine Culture - Preliminary NO GROWTH AFTER 24 HOURS Resulted 06/22/19 21:00 Arm Left Catheter Tip Culture - Preliminary NO GROWTH Resulted Paul Reed MD Jun 24, 2019 11:28
[2019-06-24 12:00] VITALS: BP 138/72
--- NOTE | 2019-06-24 12:05 | NUR ---
NURSE NOTES: Pt stable no distress presented, at bedside,informed re Stress Test in am, and NPO status post MN,verbalized understanding.
--- NOTE | 2019-06-24 13:29 | NUR ---
*-* DISCHARGE PLANNING *-* PATIENT HAS BEEN REFERRED TO: [facility] P: [phone] F: [phone]
--- NOTE | 2019-06-24 13:30 | NUR ---
DISCHARGE SWALLOW/SPEECH THERAPY SUMMARY: PATIENT SEEN FOR DYSPHAGIA, SEE SWALLOW EVALUATION REPORT. UNABLE TO COMPLETE MODIFIED BARIUM SWALLOW STUDY DUE TO SCHEDULE CONFLICTS. PATIENT GIVEN THE [place] SWALLOW WATER PROTOCOL TO SCREEN FOR SWALLOWING SAFETY FOR THIN LIQUIDS. ALTHOUGH HE IS ON NECTAR THICK LIQUIDS, HE STILL WILL DRINK FREE WATER AGAINST MEDICAL ADVICE. RECENT CXR IS CLEAR. GIVEN THIN LIQUIDS VIA STRAW, ABLE TO DRINK 4-5 SIPS W/O OVERT ASPIRATION AND WITHOUT SOB (MAINTAINED RESP RATE AT 18-20 ON 3 LITERS 02 NC). PATIENT ALSO WANTS POPSICLES AND DIET COKE. TOLD RD AND SHE SAID IT WOULD BE ALLOWED FOR HIM TO HAVE DIET COKE IF HE WAS CLEARED FOR THIN LIQUIDS. STAFF AND PATIENT/FAMILY EDUCATED/TRAINED IN POSTED ASPIRATION PRECAUTIONS. PO INTAKE GOALS MET MOST OF THE TIME. HE MAY NOT EAT MUCH AT TIMES BECAUSE HE SAID HE WAS ON A LIQUID DIET FOR SO LONG HE DOESN'T HAVE MUCH OF AN APPETITE. SPEECH AND LANGUAGE STATUS: ABLE TO CONVERSE W/O WORD-FINDING PROBLEMS TODAY. ONLY HAD ONE EPISODE OF WORD-SUBSTITUTION WITH VARNISH MELTER AT PRIOR VISIT. PLAN: UPGRADE LIQUIDS TO THIN AND CONTINUE WITH CURRENT DIET. CONSIDER MODIFIED BARIUM SWALLOW STUDY OP IF INDICATED. WILL D/C FROM SKILLED DYSPHAGIA MANAGEMENT AND TX AT THIS TIME DUE TO FUNCTIONAL SWALLOWING AND COMMUNICATION SKILLS.
--- NOTE | 2019-06-24 13:32 | General Progress Note ---
Assessment/Plan Problem List: (1) Renal failure ICD Codes: N19 - Unspecified kidney failure SNOMED: 97990754 Qualifiers: Qualified Codes: N17.9 - Acute kidney failure, unspecified (2) Transient hypotension ICD Codes: I95.9 - Hypotension, unspecified SNOMED: 73540062937259 (3) Sepsis ICD Codes: A41.9 - Sepsis, unspecified organism SNOMED: 17736832 Qualifiers: Qualified Codes: A41.9 - Sepsis, unspecified organism; R65.21 - Severe sepsis with septic shock; N17.9 - Acute kidney failure, unspecified (4) Hypoxia ICD Codes: R09.02 - Hypoxemia SNOMED: 317844461 Status: stable Assessment/Plan: 73 year old man with HTN, IDDM, ? history of CVA who presented to [facility] ED with nausea,vomiting. #septic shock, POA #Klebsiella bacteremia -ICU --> [facility] -cont antibiotics as per ID recs -ceftriaxone and flagyl - day # 7 abx -Vancomycin, fluconazole added for line, fungal coverage. -repeat cultures 06/21 NGND. #Chronic systolic CHF -Cardiology following. -TTE with EF ~40% -Continue MTP 25 BID -Start aldactone when Cr < 1.5 -Stress test tmrw. #acute hypoxic resp failure without hypercarbia -intermittent BiPAP -continue inhaled bronchodilators -Pulm/CCM following -bipap prn and QHS #NSTEMI, peak trop of 2, likely due to demand ischemia -Stop heparin due to thrombocytopenia -Cardiology following #acute kidney injury on CKD, possible ATN -IV hydration stopped as above -Nephrology following -monitor BMP -avoid nephrotoxic meds -scr with improvement #acute pancreatitis -Advance diet as per GI -? Need for EUS #Thrombocytopenia, no active bleeding noted #Rule out HIT -off heparin -transfuse for Platelets < 20K -cont to monitor daily CBC -f/u HIT panel -Hematology consult appreciated #Hypokalemia, hypomagnesemia -replace and monitor labs #lactic acidosis #HTN -cont to hold BP meds #DM type 2 -ISS VTE PPx Heparin Full Code Time spent on encounter: 37 mins, >50% on counseling, coordination of care. Time of note doesn't reflect time of encounter. Subjective Date patient seen: Jun 24, 2019 Time patient seen: 12:30 Constitutional: Denies: no symptoms, chills, diaphoresis, fever, malaise, weakness, other HEENT: Denies: no symptoms, eye pain, blurred vision, tearing, double vision, ear pain, ear discharge, nose pain, nose congestion, throat pain, throat swelling, mouth pain, mouth swelling, other Cardiovascular: Denies: no symptoms, chest pain, edema, irregular heart rate, lightheadedness, palpitations, syncope, other Respiratory: Denies: no symptoms, cough, orthopnea, shortness of breath, SOB with excertion, SOB at rest, sputum, stridor, wheezing, other Gastrointestinal/Abdominal: Denies: no symptoms, abdomen distended, abdominal pain, black stools, tarry stools, blood in stool, constipated, diarrhea, difficulty swallowing, nausea, poor appetite, poor fluid intake, rectal bleeding , vomiting, other Genitourinary: Denies: no symptoms, burning, discharge, frequency, flank pain, hematuria, incontinence, pain, urgency, other Neurologic/Psychiatric: Denies: no symptoms, anxiety, depressed, emotional problems, headache, numbness, paresthesia, pre-existing deficit, seizure, tingling, tremors, weakness, other Endocrine: Denies: no symptoms, excessive sweating, flushing, intolerance to cold, intolerance to heat, increased hunger, increased thirst, increased urine, unexplained weight gain, unexplained weight loss, other Hematologic/Lymphatic: Denies: no symptoms, anemia, easy bleeding, easy bruising, other Allergies: Coded Allergies: No Known Allergies (Unverified , 06/02/19) Subjective resting in bed, comfortable. denies any SOB, cough. feeling overall better Objective Last 24 Hour Vital Signs Date Time Temp Pulse Resp B/P (MAP) Pulse Ox O2 Delivery O2 Flow Rate FiO2 06/24/19 12:00 98.3 81 17 138/72 (94) 98 06/24/19 12:00 Bi-pap 06/24/19 12:00 80 06/24/19 08:54 83 141/75 06/24/19 08:54 83 141/75 06/24/19 08:00 Bi-pap 06/24/19 08:00 81 06/24/19 08:00 97.1 83 18 141/75 (97) 96 06/24/19 06:57 98 Nasal Cannula 2.0 28 06/24/19 06:57 78 22 98 Nasal Cannula 2.0 28 06/24/19 05:26 70 19 97 35 06/24/19 04:00 70 06/24/19 04:00 Bi-pap 06/24/19 04:00 98.8 73 18 168/73 (104) 98 06/24/19 02:50 67 16 98 35 06/24/19 01:15 73 16 99 35 06/24/19 00:00 Bi-pap 06/24/19 00:00 97.7 70 18 161/72 (101) 99 06/24/19 00:00 68 06/23/19 23:00 35 06/23/19 22:50 69 18 97 35 06/23/19 22:00 3.0 06/23/19 20:42 75 163/67 06/23/19 20:00 Nasal Cannula 3.0 06/23/19 20:00 97.4 81 18 161/71 (101) 98 06/23/19 20:00 78 06/23/19 19:06 82 20 98 Nasal Cannula 2.0 28 06/23/19 19:06 98 Nasal Cannula 2.0 28 06/23/19 18:18 96 Nasal Cannula 2.0 28 06/23/19 18:15 89 20 96 Nasal Cannula 2.0 28 06/23/19 16:00 98.0 74 18 130/61 (84) 97 06/23/19 16:00 76 06/23/19 16:00 Nasal Cannula 3.0 Intake and Output 06/23/19 06/24/19 19:00 07:00 Intake Total 980 ml 275.0 ml Output Total 1350 ml 1000 ml Balance -370 ml -725.0 ml Intake Oral 980 ml IV Total 275.0 ml Output Urine Total 1350 ml 1000 ml # Bowel Movements 1 2 Laboratory Tests 06/23/19 18:00: Random Vancomycin Level 7.5 06/24/19 03:40: White Blood Count 14.6H, Red Blood Count 3.78L, Hemoglobin 11.0L, Hematocrit 32.3L, Mean Corpuscular Volume 85, Mean Corpuscular Hemoglobin 29.2, Mean Corpuscular Hemoglobin Concent 34.2, Red Cell Distribution Width 12.9, Platelet Count 63#L, Mean Platelet Volume 10.6H, Neutrophils (%) (Auto) , Lymphocytes (% ) (Auto) , Monocytes (%) (Auto) , Eosinophils (%) (Auto) , Basophils (%) (Auto) , Differential Total Cells Counted 100, Neutrophils % (Manual) 87H, Lymphocytes % (Manual) 6L, Monocytes % (Manual) 5, Eosinophils % (Manual) 2, Basophils % ( Manual) 0, Band Neutrophils 0, Platelet Estimate DecreasedL, Platelet Morphology Normal, Red Blood Cell Morphology Normal, Sodium Level 145, Potassium Level 3.8, Chloride Level 111H, Carbon Dioxide Level 20L, Anion Gap 14 , Blood Urea Nitrogen 37H, Creatinine 1.7H, Estimat Glomerular Filtration Rate 39.7, Glucose Level 119H, Calcium Level 8.1L, Total Bilirubin 0.4, Aspartate Amino Transf (AST/SGOT) 14L, Alanine Aminotransferase (ALT/SGPT) 22, Alkaline Phosphatase 72, Total Protein 5.0L, Albumin 1.7L, Globulin 3.3, Albumin/ Globulin Ratio 0.5L, Amylase Level 88, Lipase 411H Height (Feet): 5 Height (Inches): 7.00 Weight (Pounds): 241 General Appearance: no apparent distress, alert Neck: supple Cardiovascular: normal rate, regular rhythm Respiratory/Chest: lungs clear, normal breath sounds Abdomen: non tender, soft Ama Mallory M.D. Jun 24, 2019 13:32
[2019-06-24 16:00] VITALS: BP 142/71
--- NOTE | 2019-06-24 16:19 | Infectious Diseases Prog Note ---
Assessment/Plan Assessment/Plan 1. klebsiella bacteremia, sepsis, shock, pna vs chf, ? cap, aspiration risk, leukocytosis, pancreatitis, pseudocyst, ct noted, ? uti persistent leukocytosis, fungemia risk - ceftriaxone and flagyl - day # 9 abx - fluconazole - day # 2 - discontinue vancomycin - cath tip and blood cultures negative - picc line removed - f/u on labs and chest x-ray, CT noted - legionella urine antigen negative, mycoplasma igm wnl, sc-ng - leukocytosis improved today - continue treatment per primary care team and production support consultant 2. Shock - improved, off pressors 3. Shortness of breath, hypoxia, on BiPAP - improved, off pressors 4. Pulmonary followup. 5. Acute renal failure. 6. Anemia. 7. Diabetes. 8. Hypertension. 9. Blood sugar and blood pressure treatment per primary care team. 10. Possible CVA history. 11. No known drug allergies. 12. Social history is negative. 13. Family history is noncontributory. 14. MAR was noted. 15. Case discussed with RN. 16. Continue treatment per primary consultants. 17. ICU care. 18. Skin care protocol. 19. Orders were noted and entered. 20. GI followup. Subjective Constitutional: Denies: fever HEENT: Denies: congestion Respiratory: Denies: shortness of breath Cardiovascular: Denies: chest pain Gastrointestinal/Abdominal: Denies: nausea, vomiting, diarrhea Genitourinary: Denies: dysuria, hematuria, frequency Neurologic: Reports: other - + contreras Psychiatric: Denies: depression Skin: Denies: rash Hematologic: Denies: bleeding Musculoskeletal: Denies: pain Allergies: Coded Allergies: No Known Allergies (Unverified , 06/02/19) Objective Vital Signs Last 24 Hour Vital Signs Date Time Temp Pulse Resp B/P (MAP) Pulse Ox O2 Delivery O2 Flow Rate FiO2 06/24/19 12:00 98.3 81 17 138/72 (94) 98 06/24/19 12:00 Bi-pap 06/24/19 12:00 80 06/24/19 08:54 83 141/75 06/24/19 08:54 83 141/75 06/24/19 08:00 Bi-pap 06/24/19 08:00 81 06/24/19 08:00 97.1 83 18 141/75 (97) 96 06/24/19 06:57 98 Nasal Cannula 2.0 28 06/24/19 06:57 78 22 98 Nasal Cannula 2.0 28 06/24/19 05:26 70 19 97 35 06/24/19 04:00 70 06/24/19 04:00 Bi-pap 06/24/19 04:00 98.8 73 18 168/73 (104) 98 06/24/19 02:50 67 16 98 35 06/24/19 01:15 73 16 99 35 06/24/19 00:00 Bi-pap 06/24/19 00:00 97.7 70 18 161/72 (101) 99 06/24/19 00:00 68 06/23/19 23:00 35 06/23/19 22:50 69 18 97 35 06/23/19 22:00 3.0 06/23/19 20:42 75 163/67 06/23/19 20:00 Nasal Cannula 3.0 06/23/19 20:00 97.4 81 18 161/71 (101) 98 06/23/19 20:00 78 06/23/19 19:06 82 20 98 Nasal Cannula 2.0 28 06/23/19 19:06 98 Nasal Cannula 2.0 28 06/23/19 18:18 96 Nasal Cannula 2.0 28 06/23/19 18:15 89 20 96 Nasal Cannula 2.0 28 Height (Feet): 5 Height (Inches): 7.00 Weight (Pounds): 241 General Appearance: no acute distress HEENT: normocephalic, atraumatic, anicteric, mucous membranes moist Respiratory/Chest: no accessory muscle use, crackles/rales, rhonchi - bilaterally Cardiovascular: normal rate, regular rhythm, no gallop/murmur Abdomen: normal bowel sounds, soft, non tender, no organomegaly, non distended Genitourinary: other - + contreras Extremities: no cyanosis Skin: no rash 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 Findings: Pulmonary vascular interstitial prominence demonstrated with cardiomegaly. There is a left-sided PICC line with the tip projected over the SVC. Old right clavicle fracture noted. IMPRESSION: Mild CHF CT abdomen and pelvis - 06/15/19 - Impression: Unilocular left upper quadrant cystic mass adjacent to the tail of pancreas and the greater curvature of the stomach. Favor pancreatic pseudocyst, particularly in view of evidence of pancreatic atrophy. However, cystic neoplasm of pancreatic, gastric, or other origin also possible. Consider contrast MRI for better characterization Small ventral hernia containing a single small loop of small bowel, no definite obstruction or strangulation related to such Mildly distended proximal small bowel with slow forward transit of ingested contrast. Suspect ileus or enteritis, although early/partial small bowel obstruction also possible. Correlate with clinical findings Mild distal soft tissue wall thickening, esophagitis possible. Correlate with clinical findings Bilateral basilar pulmonary parenchymal infiltrates versus edema, fairly extensive Cardiomegaly. Apparent bladder wall thickening. Probably an artifact of lack of distention, but cystitis also possible Nonspecific bilateral perinephric fat stranding. Suspect chronic although acute renal inflammation also possible Chest x-ray - 06/20/19 - Procedure: XRAY Chest 1v Indication: Cough Technique: One view of the chest Comparison: 06/19/2019 Findings: Right mid and lower lung infiltrates, generalized interstitial congestion persists, unchanged. Cardiomegaly again demonstrated. Impression: Unchanged, over one day, findings as above. CT abdomen and pelvis - 06/20/19 - Impression: Left upper quadrant cystic mass adjacent to the pancreatic tail and greater curvature the stomach, also reported previously, equivocally slightly larger currently. As previously described, most likely a pancreatic pseudocyst. Cystic pancreatic neoplasm also possible Trace ascites. This is a new finding since the prior exam. Bilateral pleural effusions and bilateral pulmonary parenchymal compressive atelectasis. Likewise a new finding since previous study Nonspecific bilateral perinephric fat stranding, also previously reported Bilateral basilar pulmonary interstitial and airspace edema Generalized edema of the subcutaneous fat Portable cardiomegaly Empty bladder with a Contreras catheter Degenerative spondylosis Chest x-ray - 06/24/19- Comparison: 06/12/2019 A single view chest radiograph was obtained. Findings: No definite infiltrate or pulmonary vascular congestion identified. The heart is enlarged. The aorta is mildly enlarged consistent with atherosclerotic vascular disease. The bones are osteopenic. There are thoracic vertebral enthesophytes at multiple levels. Impression: No acute disease Microbiology Date/Time Source Procedure Growth Status 06/22/19 16:26 Blood Blood Culture - Preliminary NO GROWTH AFTER 24 HOURS Resulted 06/22/19 16:20 Blood Blood Culture - Preliminary NO GROWTH AFTER 24 HOURS Resulted 06/22/19 18:09 Indwelling Cath Urine Culture - Preliminary NO GROWTH AFTER 24 HOURS Resulted 06/22/19 21:00 Arm Left Catheter Tip Culture - Preliminary NO GROWTH Resulted Laboratory Tests Test 06/23/19 18:00 06/24/19 03:40 Random Vancomycin Level 7.5 ug/mL White Blood Count 14.6 K/UL (4.8-10.8) H Red Blood Count 3.78 M/UL (4.70-6.10) L Hemoglobin 11.0 G/DL (14.2-18.0) L Hematocrit 32.3 % (42.0-52.0) L Mean Corpuscular Volume 85 FL (80-99) Mean Corpuscular Hemoglobin 29.2 PG (27.0-31.0) Mean Corpuscular Hemoglobin Concent 34.2 G/DL (32.0-36.0) Red Cell Distribution Width 12.9 % (11.6-14.8) Platelet Count 63 K/UL (150-450) #L Mean Platelet Volume 10.6 FL (6.5-10.1) H Neutrophils (%) (Auto) % (45.0-75.0) Lymphocytes (%) (Auto) % (20.0-45.0) Monocytes (%) (Auto) % (1.0-10.0) Eosinophils (%) (Auto) % (0.0-3.0) Basophils (%) (Auto) % (0.0-2.0) Differential Total Cells Counted 100 Neutrophils % (Manual) 87 % (45-75) H Lymphocytes % (Manual) 6 % (20-45) L Monocytes % (Manual) 5 % (1-10) Eosinophils % (Manual) 2 % (0-3) Basophils % (Manual) 0 % (0-2) Band Neutrophils 0 % (0-8) Platelet Estimate Decreased L Platelet Morphology Normal Red Blood Cell Morphology Normal Sodium Level 145 MMOL/L (136-145) Potassium Level 3.8 MMOL/L (3.5-5.1) Chloride Level 111 MMOL/L (98-107) H Carbon Dioxide Level 20 MMOL/L (21-32) L Anion Gap 14 mmol/L (5-15) Blood Urea Nitrogen 37 mg/dL (7-18) H Creatinine 1.7 MG/DL (0.55-1.30) H Estimat Glomerular Filtration Rate 39.7 mL/min (>60) Glucose Level 119 MG/DL (74-106) H Calcium Level 8.1 MG/DL (8.5-10.1) L Total Bilirubin 0.4 MG/DL (0.2-1.0) Aspartate Amino Transf (AST/SGOT) 14 U/L (15-37) L Alanine Aminotransferase (ALT/SGPT) 22 U/L (12-78) Alkaline Phosphatase 72 U/L (46-116) Total Protein 5.0 G/DL (6.4-8.2) L Albumin 1.7 G/DL (3.4-5.0) L Globulin 3.3 g/dL Albumin/Globulin Ratio 0.5 (1.0-2.7) L Amylase Level 88 U/L (25-115) Lipase 411 U/L (73-393) H Current Medications Medications (Trade) Dose Ordered Sig/Arley Route PRN Reason Start Time Stop Time Status Last Admin Dose Admin Acetaminophen (Tylenol) 650 mg Q4H PRN ORAL Mild Pain (Pain Scale 1-3) 06/20/19 18:05 07/15/19 18:04 Albumin Human 50 ml @ 50 mls/hr DAILY PRN IV For hypotension 06/20/19 18:09 07/20/19 18:08 Amlodipine Besylate (Norvasc) 5 mg DAILY ORAL 06/24/19 09:00 07/24/19 08:59 06/24/19 08:54 Aspirin (ASA) 81 mg DAILY NG 06/21/19 09:00 07/20/19 08:59 06/24/19 08:54 Bisacodyl (Dulcolax) 10 mg DAILYPRN PRN RECTAL Constipation 06/20/19 18:07 07/15/19 18:06 Ceftriaxone Sodium 1 gm/ Dextrose 50 ml @ 100 mls/hr Q24H IVPB 06/23/19 17:00 06/27/19 16:59 06/23/19 17:55 Chlorhexidine Gluconate (Mena-Hex 2%) 1 applic DAILY@2000 TOPIC 06/20/19 20:00 07/16/19 19:59 06/21/19 21:06 Dextrose (Dextrose 50%) 25 ml Q30M PRN IV Hypoglycemia 06/20/19 18:06 07/16/19 18:05 Dextrose (Dextrose 50%) 50 ml Q30M PRN IV Hypoglycemia 06/20/19 18:06 07/16/19 18:05 Fluconazole/ Sodium Chloride 100 ml @ 100 mls/hr Q24H IV 06/23/19 14:00 06/30/19 13:59 06/24/19 13:38 Insulin Aspart (NovoLOG) AC+HS SUBQ 06/21/19 11:30 07/20/19 17:59 06/24/19 12:34 Magnesium Hydroxide (Mom) 30 ml HSPRN PRN ORAL Constipation 06/20/19 21:00 07/15/19 20:59 Metoprolol Tartrate (Lopressor) 25 mg Q12HR ORAL 06/20/19 21:00 07/20/19 08:59 06/24/19 08:54 Metronidazole (Flagyl) 500 mg EVERY 8 HOURS ORAL 06/23/19 14:00 06/30/19 13:59 06/24/19 13:38 Ondansetron HCl (Zofran) 4 mg Q6H PRN IVP Nausea & Vomiting 06/20/19 18:06 07/15/19 18:05 Pantoprazole (Protonix) 40 mg DAILY IVP 06/21/19 09:00 07/16/19 08:59 06/24/19 08:54 Regadenoson (Lexiscan) 0.4 mg ONCE PRN IV STRESS TEST 06/23/19 08:30 06/26/19 08:29 Vancomycin HCl (Vanco rx to dose) 1 ea DAILY PRN MISC Per rx protocol 06/22/19 16:15 07/22/19 16:14 Pranay Waller MD Jun 24, 2019 16:19
[2019-06-24] MEDS: cefTRIAXone 1 GM in D5W 50 ML IVPB SCH (17:15)
[2019-06-24] MEDS ORDERED: Lexiscan 0.4mg/5ml syringe IV PRN (18:45)
--- NOTE | 2019-06-24 18:50 | NUR ---
NURSE NOTES: Nurse report given by GANGA Massey. Patient's transferred from [facility]. Patient's in stable condition, no s/s of distress or SOB, denies pain, eyes open spontaneously, AO x 4, family member at bedside. Patient's belonging list went over with patient and signed by both nurses at bedside. Bed low and locked, call light within reach, side rails x 2, bed alarm is armed. IV is saline locked, patent and asymptomatic. dispensing audiologist is on. Rivero catheter noted, draining well, yellow urine color noted, no sediments present. Transferred orders acknowledged and carried out. Patient acknowledged he will have stress test tomorrow so patient is NPO by midnight. Will continue to monitor.
--- NOTE | 2019-06-24 18:50 | NUR ---
TRANSFER TO FLOOR: Patient transferred to Tele 2E room 203-1 per bed,. Report given to Fariha RN. Belongings and medications given to receiving RN. Family and or S/O at bedside and informed of transfer.
--- NOTE | 2019-06-24 19:30 | NUR ---
NURSE NOTES: Received pt and report from GANGA Fried. Pt is A/Ox3. Observed pt resting in bed with both eyes open and family members at bedside. quality assurance monitor is in placed, IV site intact, asymptomatic and patent. Pt has a Rivero present for urinary retention. Rivero is patent and urine is yellow in color. Bed is in the lowest position and locked. Call light and bedside table is within reach. No signs/symptoms of acute distress noted at this time. Will continue plan of care.
--- NOTE | 2019-06-24 19:43 | NUR ---
HAND-OFF: Report given to GANGA Griffiths. Patient's stable, plan of care endorsed.
[2019-06-24 20:00] VITALS: BP 132/62
[2019-06-24] MEDS: Dyna-Hex 2% Top Sol 2oz TOPIC SCH (20:00)
[2019-06-24] MEDS ORDERED: Milk of Magnesia 30ml Ud ORAL PRN (21:00)
[2019-06-25] VITALS: BP 159/76
--- NOTE | 2019-06-25 03:16 | NUR ---
NURSE NOTES: Pt complained of 3/10 left upper quadrant abdominal pain. Administered Tylenol 650mg PO about two hours ago, reassessed pt and pt states that he still has pain at the site. This time the pain has increased to 6/10. Contacted the certified medical transcriptionist doctor. Dr. Navarrete gave a one time order for [place] 5/325 PO. Will reassess pt.
[2019-06-25] MEDS ORDERED: HYDROcodone/Acetamin 5/325 tab ORAL SCH (03:30)
[2019-06-25 04:00] VITALS: BP 133/74
[2019-06-25] MEDS: metroNIDAZOLE 500mg tab ORAL SCH (06:26)
[2019-06-25] MEDS: NovoLOG Insulin Flexpen SUBQ SCH ×4 (06:26→21:49)
[2019-06-25 06:31] LABS: HEMATOCRIT 42.6 % (42.0-52.0); HEMOGLOBIN 14.1 G/DL (14.2-18.0); MEAN CORPUSCULAR VOLUME 86 FL (80-99); PLATELET COUNT 110 K/UL (150-450); RED BLOOD COUNT 4.94 M/UL (4.70-6.10); RED CELL DISTRIBUTION WIDTH 12.8 % (11.6-14.8)
[2019-06-25 06:38] LABS: AMYLASE 249 U/L (25-115); ANION GAP 13 mmol/L (5-15); BLOOD UREA NITROGEN 36 mg/dL (7-18); CALCIUM 8.2 MG/DL (8.5-10.1); CARBON DIOXIDE 18 MMOL/L (21-32); CHLORIDE 106 MMOL/L (98-107); CREATININE 1.8 MG/DL (0.55-1.30); SODIUM 137 MMOL/L (136-145)
--- NOTE | 2019-06-25 07:15 | NUR ---
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 RECEIVED PT WITH HOB ELEVATED 45 DEGREE AWAKE AND ALERT ,DENIES CP OR SOB AT THIS TIME. PT IS NPO ON SCHEDULE FOR STRESS TEST THIS AM. Julissa G# 22 ON LT FA PATENT AND INTACT.PT WITH F/C DRAINING DEWAYNE URINE COLOR .FULL BODY ASSESSMENT DONE.NO ACUTE DISTRESS NOTED AT THIS TIME. WILL CONT TO MONITOR.
--- NOTE | 2019-06-25 07:35 | NUR ---
HAND-OFF: Report given to GANGA Montano. Plan of care endorsed.
[2019-06-25 08:00] VITALS: BP 127/70
--- NOTE | 2019-06-25 08:22 | Cardiology Progress Note ---
Assessment/Plan Status: stable Assessment/Plan Assessment/Plan 73 year old man with HTN, IDDM, ? history of CVA who [place] [facility] [place],vomiting and hypertensive urgency and SOB -Empiric ABX and IV fluids -> WBC now normal, no fevers, cultures negative -BiPAP prn, continue pulmonary rehab/toilet/CPT, serial chest x ray -V/Q and LE US negative for thrombus, CXR with cardiomegaly and interstitial prominence -Echocardiogram with LVEF 40% and PA pressure 55 mmHG and elevated right atrial pressures. -Continue diuresis to lower filling pressures, recommend repeating limited Echocardiogram once dry weight achieved to re-evaluate pulmonary/filling pressures -Continue low dose metoprolol 25 mg BID for systolic dysfunction and titrate -Start aldactone when creatinine <1.5, currently ARB/ACEI held due to ZARINA/ATN -Stress test prior to discharge when pulmonary status stable. Ordered for SUNDAY -Defer cardiac cath given lack of chest pain and poor renal function -D/c troponin check, d/c anticoagulation given low platelets, no indication for transfusion no bleeding noted Subjective Cardiovascular: Reports: no symptoms Respiratory: Reports: no symptoms Gastrointestinal/Abdominal: Reports: no symptoms Genitourinary: Reports: no symptoms Subjective Patient stable on floors, no acute events, vitals stable, PICC removed, Plan for stress test Sunday Objective Last 24 Hour Vital Signs Date Time Temp Pulse Resp B/P (MAP) Pulse Ox O2 Delivery O2 Flow Rate FiO2 06/25/19 04:00 98.4 98 20 133/74 (93) 97 06/25/19 04:00 98 06/25/19 00:00 98.2 77 20 159/76 (103) 94 06/25/19 00:00 67 06/24/19 22:00 30 06/24/19 21:19 72 132/62 06/24/19 21:00 Nasal Cannula 3.0 06/24/19 20:11 98 Nasal Cannula 2.0 28 06/24/19 20:11 71 20 98 Nasal Cannula 3.0 32 06/24/19 20:00 97.5 72 20 132/62 (85) 97 06/24/19 20:00 71 06/24/19 16:01 Nasal Cannula 3.0 06/24/19 16:00 80 06/24/19 16:00 97.8 68 18 142/71 (94) 97 06/24/19 12:00 98.3 81 17 138/72 (94) 98 06/24/19 12:00 Nasal Cannula 3.0 06/24/19 12:00 80 06/24/19 08:54 83 141/75 06/24/19 08:54 83 141/75 General Appearance: no apparent distress, alert EENT: PERRL/EOMI, normal ENT inspection, TMs normal, pharynx normal Neck: non-tender, normal alignment, supple, normal inspection, no JVD Rhythm: NSR Cardiovascular: normal peripheral pulses, normal rate, regular rhythm Respiratory/Chest: chest wall non-tender, lungs clear, normal breath sounds, no respiratory distress Abdomen: normal bowel sounds, non tender, soft, no organomegaly, no mass Extremities: normal range of motion, non-tender, normal inspection, no calf tenderness, no swelling Neurologic: poker in II-XII grossly normal, no motor/sensory deficits Intake and Output 06/24/19 06/25/19 19:00 07:00 Intake Total 1000 ml Output Total 1100 ml 450 ml Balance -100 ml -450 ml Intake Oral 1000 ml Output Urine Total 1100 ml 450 ml # Bowel Movements 4 1 Laboratory Tests Test 06/25/19 05:40 White Blood Count Pending Red Blood Count Pending Hemoglobin Pending Hematocrit Pending Mean Corpuscular Volume Pending Mean Corpuscular Hemoglobin Pending Mean Corpuscular Hemoglobin Concent Pending Red Cell Distribution Width Pending Platelet Count Pending Mean Platelet Volume Pending Neutrophils (%) (Auto) Pending Lymphocytes (%) (Auto) Pending Monocytes (%) (Auto) Pending Eosinophils (%) (Auto) Pending Basophils (%) (Auto) Pending Sodium Level 137 MMOL/L (136-145) Potassium Level 4.0 MMOL/L (3.5-5.1) Chloride Level 106 MMOL/L (98-107) Carbon Dioxide Level 18 MMOL/L (21-32) L Anion Gap 13 mmol/L (5-15) Blood Urea Nitrogen 36 mg/dL (7-18) H Creatinine 1.8 MG/DL (0.55-1.30) H Estimat Glomerular Filtration Rate 37.2 mL/min (>60) Glucose Level 184 MG/DL (74-106) H Calcium Level 8.2 MG/DL (8.5-10.1) L Amylase Level 249 U/L (25-115) H Lipase 1000 U/L (73-393) H Microbiology Date/Time Source Procedure Growth Status 06/22/19 16:26 Blood Blood Culture - Preliminary NO GROWTH AFTER 48 HOURS Resulted 06/22/19 16:20 Blood Blood Culture - Preliminary NO GROWTH AFTER 48 HOURS Resulted 06/22/19 18:09 Indwelling Cath Urine Culture - Final NO GROWTH AFTER 48 HOURS Complete 06/22/19 21:00 Arm Left Catheter Tip Culture - Preliminary NO GROWTH AFTER 48 HOURS Resulted Paul Reed MD Jun 25, 2019 08:22
[2019-06-25] MEDS: Pantoprazole Inj IVP SCH (08:43)
[2019-06-25 08:44] LABS: WHITE BLOOD COUNT 29.8 K/UL (4.8-10.8)
[2019-06-25] MEDS: Aspirin Baby 81mg ORAL SCH (09:00)
[2019-06-25] MEDS ORDERED: Vancomycin 1 GM in D5W 275 ML IVPB ONE (09:45)
--- NOTE | 2019-06-25 09:46 | NUR ---
CASE MANAGEMENT:REVIEW 06/25/19 SI: SEPSIS. RESPIRATORY FAILURE NSTEMI. ACUTE PANCREATITIS 98.4 98 20 133/74 97% ON 3L/NC WBC+29.8 PLT-110 BUN+36 CR+1.8 IS: IV ROCEPHIN Q24 IV DIFLUCAN Q24 NORVASC PO QD ASA PO QD IV PROTONIX QD LOPRESSOR PO Q12 : FROM SDU TO TELEMETRY DCP: PATIENT IS FROM HOME
--- NOTE | 2019-06-25 10:32 | GI Progress Note ---
Assessment/Plan Problems: (1) Thrombocytopenia ICD Codes: D69.6 - Thrombocytopenia, unspecified SNOMED: 936192635 (2) Acute pancreatitis ICD Codes: K85.90 - Acute pancreatitis without necrosis or infection, unspecified SNOMED: 744194577 Qualifiers: Qualified Codes: K85.90 - Acute pancreatitis without necrosis or infection, unspecified (3) Left upper quadrant abdominal mass ICD Codes: R19.02 - Left upper quadrant abdominal swelling, mass and lump SNOMED: 354980932 Status: unchanged Status Narrative Discussed with Dr. Akbar. Assessment/Plan diarrhea anemia esophagitis CM pancreatic pseudocyst on low fat diet patient will need EUS but given elevated trop and WBC will hold for now repeat CT reviewed abx per id fu cardiology and nephrology repeat labs in am ppi stool studies - stool cx negative - cdiff negative The patient was seen and examined at bedside and all new and available data was reviewed in the patients chart. I agree with the above findings, impression and plan. (Patient seen earlier today. Signature stamp does not reflect patient encounter time.). - Peyman Akbar MD Subjective Gastrointestinal/Abdominal: Reports: no symptoms Objective Last 24 Hour Vital Signs Date Time Temp Pulse Resp B/P (MAP) Pulse Ox O2 Delivery O2 Flow Rate FiO2 06/25/19 04:00 98.4 98 20 133/74 (93) 97 06/25/19 04:00 98 06/25/19 00:00 98.2 77 20 159/76 (103) 94 06/25/19 00:00 67 06/24/19 22:00 30 06/24/19 21:19 72 132/62 06/24/19 21:00 Nasal Cannula 3.0 06/24/19 20:11 98 Nasal Cannula 2.0 28 06/24/19 20:11 71 20 98 Nasal Cannula 3.0 32 06/24/19 20:00 97.5 72 20 132/62 (85) 97 06/24/19 20:00 71 06/24/19 16:01 Nasal Cannula 3.0 06/24/19 16:00 80 06/24/19 16:00 97.8 68 18 142/71 (94) 97 06/24/19 12:00 98.3 81 17 138/72 (94) 98 06/24/19 12:00 Nasal Cannula 3.0 06/24/19 12:00 80 Intake and Output 06/24/19 06/25/19 19:00 07:00 Intake Total 1000 ml Output Total 1100 ml 450 ml Balance -100 ml -450 ml Intake Oral 1000 ml Output Urine Total 1100 ml 450 ml # Bowel Movements 4 1 Laboratory Tests Test 06/25/19 05:40 White Blood Count 29.8 K/UL (4.8-10.8) #*H Red Blood Count 4.94 M/UL (4.70-6.10) Hemoglobin 14.1 G/DL (14.2-18.0) L Hematocrit 42.6 % (42.0-52.0) # Mean Corpuscular Volume 86 FL (80-99) Mean Corpuscular Hemoglobin 28.6 PG (27.0-31.0) Mean Corpuscular Hemoglobin Concent 33.2 G/DL (32.0-36.0) Red Cell Distribution Width 12.8 % (11.6-14.8) Platelet Count 110 K/UL (150-450) #L Mean Platelet Volume 9.8 FL (6.5-10.1) Neutrophils (%) (Auto) % (45.0-75.0) Lymphocytes (%) (Auto) % (20.0-45.0) Monocytes (%) (Auto) % (1.0-10.0) Eosinophils (%) (Auto) % (0.0-3.0) Basophils (%) (Auto) % (0.0-2.0) Neutrophils % (Manual) Pending Lymphocytes % (Manual) Pending Platelet Estimate Pending Platelet Morphology Pending Sodium Level 137 MMOL/L (136-145) Potassium Level 4.0 MMOL/L (3.5-5.1) Chloride Level 106 MMOL/L (98-107) Carbon Dioxide Level 18 MMOL/L (21-32) L Anion Gap 13 mmol/L (5-15) Blood Urea Nitrogen 36 mg/dL (7-18) H Creatinine 1.8 MG/DL (0.55-1.30) H Estimat Glomerular Filtration Rate 37.2 mL/min (>60) Glucose Level 184 MG/DL (74-106) H Calcium Level 8.2 MG/DL (8.5-10.1) L Amylase Level 249 U/L (25-115) H Lipase 1000 U/L (73-393) H Height (Feet): 5 Height (Inches): 7.00 Weight (Pounds): 244 General Appearance: WD/WN, no apparent distress, alert Cardiovascular: normal rate Respiratory/Chest: normal breath sounds, no respiratory distress Abdominal Exam: normal bowel sounds, non tender, soft Extremities: normal range of motion, non-tender Denise Enamorado NP Jun 25, 2019 10:32
[2019-06-25] MEDS ORDERED: Vancomycin 1 GM in NS 275 ML IVPB SCH (11:00)
[2019-06-25] MEDS ORDERED: Vancomycin 1gm in D5W 275ml IVPB SCH (11:00)
--- NOTE | 2019-06-25 11:36 | Hematology/Onc Progress Note ---
Assessment/Plan Assessment/Plan Assessment and recs: # Thrombocytopenia - potential causes multifactorial, in this case due to sepsis , less likely due to heparin --> Hep panel and HIV are negative --> US abd to evaluate for cirrhosis and hsm ordered and none noted --> Peripheral smear ordered to evaluate for blasts /schistocytes --> abx and other meds have been reviewed --> ok for ppx if plt >50k w/ either heparin or lovenox --> Transfuse if Plt < 20k and fever, or if Plt < 10k without fever --> plt trend 41-->49k-->63k-->110 # 10.7 cm unilocular cystic structure in the left upper quadrant retroperitoneal , corresponding to findings reported on recent CT scan. Most likely represents a pancreatic pseudocyst. --> continue to monitor as per gi --> repeat us or ct in short order, weeks to months to re-eval --> repeat ct showed mild enlargement of cyst/mass, will need further repeat imaging # Leukocytosis with hx of infection --> on vanc/zosyn --> pending source eval per id # DM, ? history of CVA who presented to [facility] with [place],vomiting. --> a1c goal <8, accuchecks qac/qhs # Septic shock, POA, possible biliary source --> cont ICU level of care --> cont IV hydration --> on abx, as per pulm/cc # Acute hypoxic resp failure without hypercarbia --> Intermittent BiPAP --> continue inhaled bronchodilators # NSTEMI, peak trop of 2, likely due to demand ischemia --> Stop heparin due to thrombocytopenia --> duplex lower legs is neg --> HIT neg --> per cards # Acute kidney injury on CKD, possible ATN --> Nephrology following # Acute pancreatitis --> hydration # HTN --> cont to hold BP meds # DM type 2 --> ISS # Dvt ppx scds Appreciate consultation and sydney Aguila Subjective Allergies: Coded Allergies: No Known Allergies (Unverified , 06/02/19) Subjective 06/20: awake and alert, no overnight events, v mask 06/22: plts remain low, in the 40s, off anticaog, sydney rn, pending labs 06/23: is on broad spectrum abx, fluncon, ctx, flagyl, vanc, no f/c 06/24: on tele, no overnight events, wbc at 29.8, plt count improved Objective Objective Current Medications Medications (Trade) Dose Ordered Sig/Arley Route PRN Reason Start Time Stop Time Status Last Admin Dose Admin Acetaminophen (Tylenol) 650 mg Q4H PRN ORAL Mild Pain (Pain Scale 1-3) 06/24/19 19:00 07/15/19 18:59 06/25/19 00:51 Albumin Human 50 ml @ 50 mls/hr DAILYPRN PRN IV For hypotension 06/25/19 09:00 07/25/19 08:59 Amlodipine Besylate (Norvasc) 5 mg DAILY ORAL 06/25/19 09:00 07/24/19 08:59 Aspirin (ASA) 81 mg DAILY ORAL 06/25/19 09:00 07/20/19 08:59 Bisacodyl (Dulcolax) 10 mg DAILYPRN PRN RECTAL Constipation 06/24/19 19:00 07/24/19 18:59 Chlorhexidine Gluconate (Mena-Hex 2%) 1 applic DAILY@2000 TOPIC 06/24/19 20:00 07/16/19 19:59 Dextrose (Dextrose 50%) 25 ml Q30M PRN IV Hypoglycemia 06/24/19 18:45 07/16/19 18:05 Dextrose (Dextrose 50%) 50 ml Q30M PRN IV Hypoglycemia 06/24/19 18:45 07/16/19 18:05 Fluconazole/ Sodium Chloride 100 ml @ 100 mls/hr Q24H IV 06/25/19 14:00 06/30/19 13:59 Insulin Aspart (NovoLOG) AC+HS SUBQ 06/24/19 21:00 07/20/19 17:59 06/24/19 21:21 Magnesium Hydroxide (Mom) 30 ml HSPRN PRN ORAL Constipation 06/24/19 21:00 07/15/19 20:59 Metoprolol Tartrate (Lopressor) 25 mg Q12HR ORAL 06/24/19 21:00 07/20/19 08:59 06/24/19 21:19 Ondansetron HCl (Zofran) 4 mg Q6H PRN IVP Nausea & Vomiting 06/24/19 19:00 07/24/19 18:59 Pantoprazole (Protonix) 40 mg DAILY IVP 06/25/19 09:00 07/16/19 08:59 06/25/19 08:43 Piperacillin Sod/ Tazobactam Sod 3.375 gm/Sodium Chloride 110 ml @ 27.5 mls/hr EVERY 8 HOURS IVPB 06/25/19 14:00 06/30/19 13:59 Regadenoson (Lexiscan) 0.4 mg ONCE PRN IV stress test 06/24/19 18:45 06/26/19 18:44 Vancomycin HCl (Vanco rx to dose) 1 ea DAILY PRN MISC . 06/25/19 10:00 07/25/19 09:59 Vancomycin HCl 1 gm/Sodium Chloride 275 ml @ 183.708 mls/hr ONCE IVPB 06/25/19 11:00 06/25/19 13:00 Last 24 Hour Vital Signs Date Time Temp Pulse Resp B/P (MAP) Pulse Ox O2 Delivery O2 Flow Rate FiO2 06/25/19 09:00 Nasal Cannula 3.0 06/25/19 09:00 106 127/70 06/25/19 09:00 106 127/70 06/25/19 08:25 81 18 94 Nasal Cannula 2.0 32 06/25/19 08:20 94 Nasal Cannula 2.0 28 06/25/19 08:00 108 06/25/19 08:00 98.1 106 20 127/70 (89) 93 106 06/25/19 04:00 98.4 98 20 133/74 (93) 97 06/25/19 04:00 98 06/25/19 00:00 98.2 77 20 159/76 (103) 94 06/25/19 00:00 67 06/24/19 22:00 30 06/24/19 21:19 72 132/62 06/24/19 21:00 Nasal Cannula 3.0 06/24/19 20:11 98 Nasal Cannula 2.0 28 06/24/19 20:11 71 20 98 Nasal Cannula 3.0 32 06/24/19 20:00 97.5 72 20 132/62 (85) 97 06/24/19 20:00 71 06/24/19 16:01 Nasal Cannula 3.0 06/24/19 16:00 80 06/24/19 16:00 97.8 68 18 142/71 (94) 97 06/24/19 12:00 98.3 81 17 138/72 (94) 98 06/24/19 12:00 Nasal Cannula 3.0 06/24/19 12:00 80 06/24/19 08:54 83 141/75 06/24/19 08:54 83 141/75 06/24/19 08:01 Nasal Cannula 3.0 06/24/19 08:00 81 06/24/19 08:00 97.1 83 18 141/75 (97) 96 06/24/19 06:57 98 Nasal Cannula 2.0 28 06/24/19 06:57 78 22 98 Nasal Cannula 2.0 28 06/24/19 05:26 70 19 97 35 06/24/19 04:00 70 06/24/19 04:00 Bi-pap 06/24/19 04:00 98.8 73 18 168/73 (104) 98 06/24/19 02:50 67 16 98 35 06/24/19 01:15 73 16 99 35 06/24/19 00:00 Bi-pap 06/24/19 00:00 97.7 70 18 161/72 (101) 99 06/24/19 00:00 68 06/23/19 23:00 35 06/23/19 22:50 69 18 97 35 06/23/19 22:00 3.0 06/23/19 20:42 75 163/67 06/23/19 20:00 Nasal Cannula 3.0 06/23/19 20:00 97.4 81 18 161/71 (101) 98 06/23/19 20:00 78 06/23/19 19:06 82 20 98 Nasal Cannula 2.0 28 06/23/19 19:06 98 Nasal Cannula 2.0 28 06/23/19 18:18 96 Nasal Cannula 2.0 28 06/23/19 18:15 89 20 96 Nasal Cannula 2.0 28 06/23/19 16:00 98.0 74 18 130/61 (84) 97 06/23/19 16:00 76 06/23/19 16:00 Nasal Cannula 3.0 06/23/19 12:00 Nasal Cannula 3.0 06/23/19 12:00 97.8 80 20 162/101 (121) 100 06/23/19 12:00 78 Intake and Output 06/24/19 06/25/19 19:00 07:00 Intake Total 1000 ml Output Total 1100 ml 450 ml Balance -100 ml -450 ml Intake Oral 1000 ml Output Urine Total 1100 ml 450 ml # Bowel Movements 4 1 Labs Test 06/22/19 18:09 06/23/19 03:57 06/23/19 18:00 06/24/19 03:40 Urine Color Yellow Urine Appearance Cloudy Urine pH 5 (4.5-8.0) Urine Specific [place] 1.015 (1.005-1.035) Urine Protein 3+ (NEGATIVE) Urine Glucose (UA) Negative (NEGATIVE) Urine Ketones Negative (NEGATIVE) Urine Blood 5+ (NEGATIVE) Urine Nitrite Negative (NEGATIVE) Urine Bilirubin Negative (NEGATIVE) Urine Urobilinogen Normal MG/DL (0.0-1.0) Urine Leukocyte Esterase 2+ (NEGATIVE) Urine RBC Tntc /HPF (0 - 0) Urine WBC 10-15 /HPF (0 - 0) Urine Squamous Epithelial Cells Occasional /LPF Urine Amorphous Sediment Many /LPF (NONE) Urine Bacteria Many /HPF (NONE) Urine Granular Casts 0-2 /LPF (NONE) White Blood Count 16.3 K/UL (4.8-10.8) 14.6 K/UL (4.8-10.8) Red Blood Count 3.60 M/UL (4.70-6.10) 3.78 M/UL (4.70-6.10) Hemoglobin 10.4 G/DL (14.2-18.0) 11.0 G/DL (14.2-18.0) Hematocrit 30.5 % (42.0-52.0) 32.3 % (42.0-52.0) Mean Corpuscular Volume 85 FL (80-99) 85 FL (80-99) Mean Corpuscular Hemoglobin 28.8 PG (27.0-31.0) 29.2 PG (27.0-31.0) Mean Corpuscular Hemoglobin Concent 34.0 G/DL (32.0-36.0) 34.2 G/DL (32.0-36.0) Red Cell Distribution Width 12.6 % (11.6-14.8) 12.9 % (11.6-14.8) Platelet Count 41 K/UL (150-450) 63 K/UL (150-450) Mean Platelet Volume 13.1 FL (6.5-10.1) 10.6 FL (6.5-10.1) Neutrophils (%) (Auto) % (45.0-75.0) % (45.0-75.0) Lymphocytes (%) (Auto) % (20.0-45.0) % (20.0-45.0) Monocytes (%) (Auto) % (1.0-10.0) % (1.0-10.0) Eosinophils (%) (Auto) % (0.0-3.0) % (0.0-3.0) Basophils (%) (Auto) % (0.0-2.0) % (0.0-2.0) Differential Total Cells Counted 100 100 Neutrophils % (Manual) 84 % (45-75) 87 % (45-75) Lymphocytes % (Manual) 9 % (20-45) 6 % (20-45) Monocytes % (Manual) 3 % (1-10) 5 % (1-10) Eosinophils % (Manual) 4 % (0-3) 2 % (0-3) Basophils % (Manual) 0 % (0-2) 0 % (0-2) Band Neutrophils 0 % (0-8) 0 % (0-8) Platelet Estimate Decreased Decreased Platelet Morphology Normal Normal Red Blood Cell Morphology Normal Normal Sodium Level 142 MMOL/L (136-145) 145 MMOL/L (136-145) Potassium Level 3.6 MMOL/L (3.5-5.1) 3.8 MMOL/L (3.5-5.1) Chloride Level 109 MMOL/L (98-107) 111 MMOL/L (98-107) Carbon Dioxide Level 24 MMOL/L (21-32) 20 MMOL/L (21-32) Anion Gap 9 mmol/L (5-15) 14 mmol/L (5-15) Blood Urea Nitrogen 46 mg/dL (7-18) 37 mg/dL (7-18) Creatinine 2.0 MG/DL (0.55-1.30) 1.7 MG/DL (0.55-1.30) Estimat Glomerular Filtration Rate 32.9 mL/min (>60) 39.7 mL/min (>60) Glucose Level 125 MG/DL (74-106) 119 MG/DL (74-106) Calcium Level 7.8 MG/DL (8.5-10.1) 8.1 MG/DL (8.5-10.1) Total Bilirubin 0.5 MG/DL (0.2-1.0) 0.4 MG/DL (0.2-1.0) Aspartate Amino Transf (AST/SGOT) 16 U/L (15-37) 14 U/L (15-37) Alanine Aminotransferase (ALT/SGPT) 25 U/L (12-78) 22 U/L (12-78) Alkaline Phosphatase 72 U/L (46-116) 72 U/L (46-116) Total Protein 4.9 G/DL (6.4-8.2) 5.0 G/DL (6.4-8.2) Albumin 1.8 G/DL (3.4-5.0) 1.7 G/DL (3.4-5.0) Globulin 3.1 g/dL 3.3 g/dL Albumin/Globulin Ratio 0.6 (1.0-2.7) 0.5 (1.0-2.7) Random Vancomycin Level 7.5 ug/mL Amylase Level 88 U/L (25-115) Lipase 411 U/L (73-393) Test 06/25/19 05:40 White Blood Count 29.8 K/UL (4.8-10.8) Red Blood Count 4.94 M/UL (4.70-6.10) Hemoglobin 14.1 G/DL (14.2-18.0) Hematocrit 42.6 % (42.0-52.0) Mean Corpuscular Volume 86 FL (80-99) Mean Corpuscular Hemoglobin 28.6 PG (27.0-31.0) Mean Corpuscular Hemoglobin Concent 33.2 G/DL (32.0-36.0) Red Cell Distribution Width 12.8 % (11.6-14.8) Platelet Count 110 K/UL (150-450) Mean Platelet Volume 9.8 FL (6.5-10.1) Neutrophils (%) (Auto) % (45.0-75.0) Lymphocytes (%) (Auto) % (20.0-45.0) Monocytes (%) (Auto) % (1.0-10.0) Eosinophils (%) (Auto) % (0.0-3.0) Basophils (%) (Auto) % (0.0-2.0) Sodium Level 137 MMOL/L (136-145) Potassium Level 4.0 MMOL/L (3.5-5.1) Chloride Level 106 MMOL/L (98-107) Carbon Dioxide Level 18 MMOL/L (21-32) Anion Gap 13 mmol/L (5-15) Blood Urea Nitrogen 36 mg/dL (7-18) Creatinine 1.8 MG/DL (0.55-1.30) Estimat Glomerular Filtration Rate 37.2 mL/min (>60) Glucose Level 184 MG/DL (74-106) Calcium Level 8.2 MG/DL (8.5-10.1) Amylase Level 249 U/L (25-115) Lipase 1000 U/L (73-393) Height (Feet): 5 Height (Inches): 7.00 Weight (Pounds): 244 Objective PE General Appearance: no apparent distress, alert HEENT: atraumatic, anicteric Neck: normal alignment, supple Respiratory/Chest: lungs clear, normal breath sounds, no respiratory distress Cardiovascular/Chest: normal rate, regular rhythm Abdomen: non tender, soft, no organomegaly Extremities: non-tender, normal inspection Skin Exam: warm/dry, cyanotic Neurologic: alert Kana Paul MD Jun 25, 2019 11:36
[2019-06-25 12:00] VITALS: BP 104/62
--- NOTE | 2019-06-25 12:14 | Pulmonology Progress Note ---
Assessment/Plan Problems: (1) Sepsis (2) Hypoxia (3) Left upper quadrant abdominal mass (4) Thrombocytopenia Assessment & Plan: Recovered (5) Acute kidney injury superimposed on CKD Assessment/Plan D/C BiPAP as patient declining, will need outpatient PSG, should have an outpatient screening CT chest as well Titrate FiO2 PRN HHN's Monitor volumes and renal function ABx per ID, F/U Cx's F/U cards recs ? ischemia eval once acute issues resolve F/U GI recs, F/U CA-19-9, EUS/ERCP when able Monitor platelets, F/U HIT Ab panel Cautious PO with STRICT ASPIRATION precautions DVT Px: SCD's FC Subjective Allergies: Coded Allergies: No Known Allergies (Unverified , 06/02/19) Subjective AFVSS O2 needs stable Did not use BiPAP WCT inc Weak cough no SOB no FC no CP Objective Last 24 Hour Vital Signs Date Time Temp Pulse Resp B/P (MAP) Pulse Ox O2 Delivery O2 Flow Rate FiO2 06/25/19 09:00 Nasal Cannula 3.0 06/25/19 09:00 106 127/70 06/25/19 09:00 106 127/70 06/25/19 08:25 81 18 94 Nasal Cannula 2.0 32 06/25/19 08:20 94 Nasal Cannula 2.0 28 06/25/19 08:00 108 06/25/19 08:00 98.1 106 20 127/70 (89) 93 106 06/25/19 04:00 98.4 98 20 133/74 (93) 97 06/25/19 04:00 98 06/25/19 00:00 98.2 77 20 159/76 (103) 94 06/25/19 00:00 67 06/24/19 22:00 30 06/24/19 21:19 72 132/62 06/24/19 21:00 Nasal Cannula 3.0 06/24/19 20:11 98 Nasal Cannula 2.0 28 06/24/19 20:11 71 20 98 Nasal Cannula 3.0 32 06/24/19 20:00 97.5 72 20 132/62 (85) 97 06/24/19 20:00 71 06/24/19 16:01 Nasal Cannula 3.0 06/24/19 16:00 80 06/24/19 16:00 97.8 68 18 142/71 (94) 97 Intake and Output 06/24/19 06/25/19 19:00 07:00 Intake Total 1000 ml Output Total 1100 ml 450 ml Balance -100 ml -450 ml Intake Oral 1000 ml Output Urine Total 1100 ml 450 ml # Bowel Movements 4 1 Objective Ob M General Appearance: no acute distress - Ob M, other HEENT: normocephalic, atraumatic, anicteric, mucous membranes moist Respiratory/Chest: chest wall non-tender, lungs clear, normal breath sounds Cardiovascular: normal peripheral pulses, normal rate, regular rhythm Abdomen: normal bowel sounds, soft, non tender, no organomegaly Extremities: no cyanosis, no clubbing, no edema Microbiology Date/Time Source Procedure Growth Status 06/22/19 16:26 Blood Blood Culture - Preliminary NO GROWTH AFTER 48 HOURS Resulted 06/22/19 16:20 Blood Blood Culture - Preliminary NO GROWTH AFTER 48 HOURS Resulted 06/22/19 18:09 Indwelling Cath Urine Culture - Final NO GROWTH AFTER 48 HOURS Complete 06/22/19 21:00 Arm Left Catheter Tip Culture - Preliminary NO GROWTH AFTER 48 HOURS Resulted Laboratory Tests 06/25/19 05:40: White Blood Count 29.8#*H, Red Blood Count 4.94, Hemoglobin 14.1L, Hematocrit 42.6#, Mean Corpuscular Volume 86, Mean Corpuscular Hemoglobin 28.6, Mean Corpuscular Hemoglobin Concent 33.2, Red Cell Distribution Width 12.8, Platelet Count 110#L, Mean Platelet Volume 9.8, Neutrophils (%) (Auto) , Lymphocytes (%) (Auto) , Monocytes (%) (Auto) , Eosinophils (%) (Auto) , Basophils (%) (Auto) , Neutrophils % (Manual) [Pending], Lymphocytes % (Manual) [Pending], Platelet Estimate [Pending], Platelet Morphology [Pending], Sodium Level 137, Potassium Level 4.0, Chloride Level 106, Carbon Dioxide Level 18L, Anion Gap 13, Blood Urea Nitrogen 36H, Creatinine 1.8H, Estimat Glomerular Filtration Rate 37.2, Glucose Level 184H, Calcium Level 8.2L, Amylase Level 249H, Lipase 1000H Current Medications Medications (Trade) Dose Ordered Sig/Arley Route PRN Reason Start Time Stop Time Status Last Admin Dose Admin Acetaminophen (Tylenol) 650 mg Q4H PRN ORAL Mild Pain (Pain Scale 1-3) 06/24/19 19:00 07/15/19 18:59 06/25/19 00:51 Albumin Human 50 ml @ 50 mls/hr DAILYPRN PRN IV For hypotension 06/25/19 09:00 07/25/19 08:59 Amlodipine Besylate (Norvasc) 5 mg DAILY ORAL 06/25/19 09:00 07/24/19 08:59 Aspirin (ASA) 81 mg DAILY ORAL 06/25/19 09:00 07/20/19 08:59 Bisacodyl (Dulcolax) 10 mg DAILYPRN PRN RECTAL Constipation 06/24/19 19:00 07/24/19 18:59 Chlorhexidine Gluconate (Mena-Hex 2%) 1 applic DAILY@2000 TOPIC 06/24/19 20:00 07/16/19 19:59 Dextrose (Dextrose 50%) 25 ml Q30M PRN IV Hypoglycemia 06/24/19 18:45 07/16/19 18:05 Dextrose (Dextrose 50%) 50 ml Q30M PRN IV Hypoglycemia 06/24/19 18:45 07/16/19 18:05 Fluconazole/ Sodium Chloride 100 ml @ 100 mls/hr Q24H IV 06/25/19 14:00 06/30/19 13:59 Insulin Aspart (NovoLOG) AC+HS SUBQ 06/24/19 21:00 07/20/19 17:59 06/24/19 21:21 Magnesium Hydroxide (Mom) 30 ml HSPRN PRN ORAL Constipation 06/24/19 21:00 07/15/19 20:59 Metoprolol Tartrate (Lopressor) 25 mg Q12HR ORAL 06/24/19 21:00 07/20/19 08:59 06/24/19 21:19 Ondansetron HCl (Zofran) 4 mg Q6H PRN IVP Nausea & Vomiting 06/24/19 19:00 07/24/19 18:59 Pantoprazole (Protonix) 40 mg DAILY IVP 06/25/19 09:00 07/16/19 08:59 06/25/19 08:43 Piperacillin Sod/ Tazobactam Sod 3.375 gm/Sodium Chloride 110 ml @ 27.5 mls/hr EVERY 8 HOURS IVPB 06/25/19 14:00 06/30/19 13:59 Regadenoson (Lexiscan) 0.4 mg ONCE PRN IV stress test 06/24/19 18:45 06/26/19 18:44 Vancomycin HCl (Vanco rx to dose) 1 ea DAILY PRN MISC . 06/25/19 10:00 07/25/19 09:59 Vancomycin HCl 1 gm/Sodium Chloride 275 ml @ 183.708 mls/hr ONCE IVPB 06/25/19 11:00 06/25/19 13:00 Homero Moran MD Jun 25, 2019 12:14
--- NOTE | 2019-06-25 12:29 | Nephrology Progress Note ---
Assessment/Plan Plan #acute kidney injury - on baseline CKD- Fena 0.4% suggestive of pre-renal aztemia- however UA with sediments and RBC concerning for developing ATN- patient with baseline diabetic nephropathy - improving #sepsis #acute pancreatitis # Hypokalemia, hypopmagnesemia #lactic acidosis- improved #HTN- stable #DM- #NSTEMI #hypernatremia - improved #eliana on CKD - baseline Cr in mid to high 1s - renal function stable - monitor Cr - diuretics prn - GI eval advance as tolerated #sepsis - antibiotics per ID- - avoid supratherapeutic vanco level #troponemia - heparin on hold for thrombocytopenia - HIT? - cardiology eval - stress test today #HTN - hold lisinopril - resume amldipine 5mg daily - metop 25mg BID #DM - hold metformin - ISS Subjective Subjective Breathing stable today - on NC Cr stable WBC back up today BP stable plan for stress test Objective Objective Last 24 Hour Vital Signs Date Time Temp Pulse Resp B/P (MAP) Pulse Ox O2 Delivery O2 Flow Rate FiO2 06/25/19 12:00 98.1 107 19 104/62 (76) 93 107 06/25/19 09:00 Nasal Cannula 3.0 06/25/19 09:00 106 127/70 06/25/19 09:00 106 127/70 06/25/19 08:25 81 18 94 Nasal Cannula 2.0 32 06/25/19 08:20 94 Nasal Cannula 2.0 28 06/25/19 08:00 108 06/25/19 08:00 98.1 106 20 127/70 (89) 93 106 06/25/19 04:00 98.4 98 20 133/74 (93) 97 06/25/19 04:00 98 06/25/19 00:00 98.2 77 20 159/76 (103) 94 06/25/19 00:00 67 06/24/19 22:00 30 06/24/19 21:19 72 132/62 06/24/19 21:00 Nasal Cannula 3.0 06/24/19 20:11 98 Nasal Cannula 2.0 28 06/24/19 20:11 71 20 98 Nasal Cannula 3.0 32 06/24/19 20:00 97.5 72 20 132/62 (85) 97 06/24/19 20:00 71 06/24/19 16:01 Nasal Cannula 3.0 06/24/19 16:00 80 06/24/19 16:00 97.8 68 18 142/71 (94) 97 Intake and Output 06/24/19 06/25/19 19:00 07:00 Intake Total 1000 ml Output Total 1100 ml 450 ml Balance -100 ml -450 ml Intake Oral 1000 ml Output Urine Total 1100 ml 450 ml # Bowel Movements 4 1 Laboratory Tests 06/25/19 05:40: White Blood Count 29.8#*H, Red Blood Count 4.94, Hemoglobin 14.1L, Hematocrit 42.6#, Mean Corpuscular Volume 86, Mean Corpuscular Hemoglobin 28.6, Mean Corpuscular Hemoglobin Concent 33.2, Red Cell Distribution Width 12.8, Platelet Count 110#L, Mean Platelet Volume 9.8, Neutrophils (%) (Auto) , Lymphocytes (%) (Auto) , Monocytes (%) (Auto) , Eosinophils (%) (Auto) , Basophils (%) (Auto) , Differential Total Cells Counted 100, Neutrophils % (Manual) 93H, Lymphocytes % (Manual) 5L, Monocytes % (Manual) 2, Eosinophils % (Manual) 0, Basophils % ( Manual) 0, Band Neutrophils 0, Platelet Estimate DecreasedL, Platelet Morphology Normal, Red Blood Cell Morphology Normal, Sodium Level 137, Potassium Level 4.0, Chloride Level 106, Carbon Dioxide Level 18L, Anion Gap 13 , Blood Urea Nitrogen 36H, Creatinine 1.8H, Estimat Glomerular Filtration Rate 37.2, Glucose Level 184H, Calcium Level 8.2L, Amylase Level 249H, Lipase 1000H Height (Feet): 5 Height (Inches): 7.00 Weight (Pounds): 244 Objective General Appearance: Alert - no distress Lines, tubes and drains: peripheral HEENT: normocephalic, atraumatic Neck: non-tender, normal alignment Respiratory/Chest: chest wall non-tender, lungs clear, normal breath sounds Cardiovascular/Chest: normal rate, regular rhythm Abdomen: normal bowel sounds, non tender, soft Extremities: non-tender, normal inspection Skin Exam: normal pigmentation, no diaphoresis Gerson Salgado M.D. Jun 25, 2019 12:29
--- NOTE | 2019-06-25 12:52 | NUR ---
CARDIOLOGY I just got a consultation with Dr. Smiley regarding to doing this stress test tomorrow. He requests " need new troponins and it has to be down"
--- NOTE | 2019-06-25 14:00 | NUR ---
NURSE NOTES: RECEIVED TELEPHONE REPORT FROM [facility], STATING " STRESS TEST IS CANCELLED BECAUSE PT HAS HIGH WBC 29.8 ANF HI TROPONIN 1.496 ". PT INFORMED THAT PROCEDURE IS CANCELLED UNTIL FURTHER ORDERS.PT VERBALIZE UNDERSTOOD. WILL CONT TO MONITOR.
--- NOTE | 2019-06-25 14:34 | Infectious Diseases Prog Note ---
Assessment/Plan Assessment/Plan 1. klebsiella bacteremia, sepsis, shock, pna vs chf, ? cap, aspiration risk, leukocytosis, pancreatitis, pseudocyst, ct noted, ? uti leukocytosis much worse, ? source - zosyn and vancomycin - surveillance cultures ordered - monitor labs - 06/20/19 CT abdomen and pelvis noted - no abscess mentioned - d/w Dr. Mota 2. Shock - improved, off pressors 3. Shortness of breath, hypoxia, on BiPAP - improved, off pressors 4. Pulmonary followup. 5. Acute renal failure. 6. Anemia. 7. Diabetes. 8. Hypertension. 9. Blood sugar and blood pressure treatment per primary care team. 10. Possible CVA history. 11. No known drug allergies. 12. Social history is negative. 13. Family history is noncontributory. 14. MAR was noted. 15. Case discussed with RN. 16. Continue treatment per primary consultants. 17. ICU care. 18. Skin care protocol. 19. Orders were noted and entered. 20. GI followup. Subjective Constitutional: Reports: fatigue; Denies: fever HEENT: Denies: congestion Respiratory: Denies: shortness of breath Cardiovascular: Denies: chest pain Gastrointestinal/Abdominal: Denies: nausea, vomiting, diarrhea Genitourinary: Denies: dysuria Allergies: Coded Allergies: No Known Allergies (Unverified , 06/02/19) Objective Vital Signs Last 24 Hour Vital Signs Date Time Temp Pulse Resp B/P (MAP) Pulse Ox O2 Delivery O2 Flow Rate FiO2 06/25/19 12:00 98.1 107 19 104/62 (76) 93 107 06/25/19 09:00 Nasal Cannula 3.0 06/25/19 09:00 106 127/70 06/25/19 09:00 106 127/70 06/25/19 08:25 81 18 94 Nasal Cannula 2.0 32 06/25/19 08:20 94 Nasal Cannula 2.0 28 06/25/19 08:00 108 06/25/19 08:00 98.1 106 20 127/70 (89) 93 106 06/25/19 04:00 98.4 98 20 133/74 (93) 97 06/25/19 04:00 98 06/25/19 00:00 98.2 77 20 159/76 (103) 94 06/25/19 00:00 67 06/24/19 22:00 30 06/24/19 21:19 72 132/62 06/24/19 21:00 Nasal Cannula 3.0 06/24/19 20:11 98 Nasal Cannula 2.0 28 06/24/19 20:11 71 20 98 Nasal Cannula 3.0 32 06/24/19 20:00 97.5 72 20 132/62 (85) 97 06/24/19 20:00 71 06/24/19 16:01 Nasal Cannula 3.0 06/24/19 16:00 80 06/24/19 16:00 97.8 68 18 142/71 (94) 97 Height (Feet): 5 Height (Inches): 7.00 Weight (Pounds): 244 General Appearance: no acute distress HEENT: normocephalic, atraumatic, anicteric, mucous membranes moist Respiratory/Chest: chest wall non-tender, lungs clear, normal breath sounds, no respiratory distress Cardiovascular: normal rate, regular rhythm Objective Chest x-ray - 06/17/19 - Procedure: XRAY Chest 1v Indication: Dyspnea Comparison: 06/15/2019 A single view chest radiograph was obtained. Findings: Pulmonary vascular interstitial prominence demonstrated with cardiomegaly. There is a left-sided PICC line with the tip projected over the SVC. Old right clavicle fracture noted. IMPRESSION: Mild CHF CT abdomen and pelvis - 06/15/19 - Impression: Unilocular left upper quadrant cystic mass adjacent to the tail of pancreas and the greater curvature of the stomach. Favor pancreatic pseudocyst, particularly in view of evidence of pancreatic atrophy. However, cystic neoplasm of pancreatic, gastric, or other origin also possible. Consider contrast MRI for better characterization Small ventral hernia containing a single small loop of small bowel, no definite obstruction or strangulation related to such Mildly distended proximal small bowel with slow forward transit of ingested contrast. Suspect ileus or enteritis, although early/partial small bowel obstruction also possible. Correlate with clinical findings Mild distal soft tissue wall thickening, esophagitis possible. Correlate with clinical findings Bilateral basilar pulmonary parenchymal infiltrates versus edema, fairly extensive Cardiomegaly. Apparent bladder wall thickening. Probably an artifact of lack of distention, but cystitis also possible Nonspecific bilateral perinephric fat stranding. Suspect chronic although acute renal inflammation also possible Chest x-ray - 06/20/19 - Procedure: XRAY Chest 1v Indication: Cough Technique: One view of the chest Comparison: 06/19/2019 Findings: Right mid and lower lung infiltrates, generalized interstitial congestion persists, unchanged. Cardiomegaly again demonstrated. Impression: Unchanged, over one day, findings as above. CT abdomen and pelvis - 06/20/19 - Impression: Left upper quadrant cystic mass adjacent to the pancreatic tail and greater curvature the stomach, also reported previously, equivocally slightly larger currently. As previously described, most likely a pancreatic pseudocyst. Cystic pancreatic neoplasm also possible Trace ascites. This is a new finding since the prior exam. Bilateral pleural effusions and bilateral pulmonary parenchymal compressive atelectasis. Likewise a new finding since previous study Nonspecific bilateral perinephric fat stranding, also previously reported Bilateral basilar pulmonary interstitial and airspace edema Generalized edema of the subcutaneous fat Portable cardiomegaly Empty bladder with a Rivero catheter Degenerative spondylosis Chest x-ray - 06/24/19- Comparison: 06/12/2019 A single view chest radiograph was obtained. Findings: No definite infiltrate or pulmonary vascular congestion identified. The heart is enlarged. The aorta is mildly enlarged consistent with atherosclerotic vascular disease. The bones are osteopenic. There are thoracic vertebral enthesophytes at multiple levels. Impression: No acute disease Microbiology Date/Time Source Procedure Growth Status 06/22/19 16:26 Blood Blood Culture - Preliminary NO GROWTH AFTER 48 HOURS Resulted 06/22/19 16:20 Blood Blood Culture - Preliminary NO GROWTH AFTER 48 HOURS Resulted 06/22/19 18:09 Indwelling Cath Urine Culture - Final NO GROWTH AFTER 48 HOURS Complete 06/22/19 21:00 Arm Left Catheter Tip Culture - Preliminary NO GROWTH AFTER 48 HOURS Resulted Laboratory Tests Test 06/25/19 05:40 White Blood Count 29.8 K/UL (4.8-10.8) #*H Red Blood Count 4.94 M/UL (4.70-6.10) Hemoglobin 14.1 G/DL (14.2-18.0) L Hematocrit 42.6 % (42.0-52.0) # Mean Corpuscular Volume 86 FL (80-99) Mean Corpuscular Hemoglobin 28.6 PG (27.0-31.0) Mean Corpuscular Hemoglobin Concent 33.2 G/DL (32.0-36.0) Red Cell Distribution Width 12.8 % (11.6-14.8) Platelet Count 110 K/UL (150-450) #L Mean Platelet Volume 9.8 FL (6.5-10.1) Neutrophils (%) (Auto) % (45.0-75.0) Lymphocytes (%) (Auto) % (20.0-45.0) Monocytes (%) (Auto) % (1.0-10.0) Eosinophils (%) (Auto) % (0.0-3.0) Basophils (%) (Auto) % (0.0-2.0) Differential Total Cells Counted 100 Neutrophils % (Manual) 93 % (45-75) H Lymphocytes % (Manual) 5 % (20-45) L Monocytes % (Manual) 2 % (1-10) Eosinophils % (Manual) 0 % (0-3) Basophils % (Manual) 0 % (0-2) Band Neutrophils 0 % (0-8) Platelet Estimate Decreased L Platelet Morphology Normal Red Blood Cell Morphology Normal Sodium Level 137 MMOL/L (136-145) Potassium Level 4.0 MMOL/L (3.5-5.1) Chloride Level 106 MMOL/L (98-107) Carbon Dioxide Level 18 MMOL/L (21-32) L Anion Gap 13 mmol/L (5-15) Blood Urea Nitrogen 36 mg/dL (7-18) H Creatinine 1.8 MG/DL (0.55-1.30) H Estimat Glomerular Filtration Rate 37.2 mL/min (>60) Glucose Level 184 MG/DL (74-106) H Calcium Level 8.2 MG/DL (8.5-10.1) L Amylase Level 249 U/L (25-115) H Lipase 1000 U/L (73-393) H Current Medications Medications (Trade) Dose Ordered Sig/Arley Route PRN Reason Start Time Stop Time Status Last Admin Dose Admin Acetaminophen (Tylenol) 650 mg Q4H PRN ORAL Mild Pain (Pain Scale 1-3) 06/24/19 19:00 07/15/19 18:59 06/25/19 00:51 Albumin Human 50 ml @ 50 mls/hr DAILYPRN PRN IV For hypotension 06/25/19 09:00 07/25/19 08:59 Amlodipine Besylate (Norvasc) 5 mg DAILY ORAL 06/25/19 09:00 07/24/19 08:59 Aspirin (ASA) 81 mg DAILY ORAL 06/25/19 09:00 07/20/19 08:59 Bisacodyl (Dulcolax) 10 mg DAILYPRN PRN RECTAL Constipation 06/24/19 19:00 07/24/19 18:59 Chlorhexidine Gluconate (Mena-Hex 2%) 1 applic DAILY@2000 TOPIC 06/24/19 20:00 07/16/19 19:59 Dextrose (Dextrose 50%) 25 ml Q30M PRN IV Hypoglycemia 06/24/19 18:45 07/16/19 18:05 Dextrose (Dextrose 50%) 50 ml Q30M PRN IV Hypoglycemia 06/24/19 18:45 07/16/19 18:05 Fluconazole/ Sodium Chloride 100 ml @ 100 mls/hr Q24H IV 06/25/19 14:00 06/30/19 13:59 Insulin Aspart (NovoLOG) AC+HS SUBQ 06/24/19 21:00 07/20/19 17:59 06/24/19 21:21 Magnesium Hydroxide (Mom) 30 ml HSPRN PRN ORAL Constipation 06/24/19 21:00 07/15/19 20:59 Metoprolol Tartrate (Lopressor) 25 mg Q12HR ORAL 06/24/19 21:00 07/20/19 08:59 06/24/19 21:19 Ondansetron HCl (Zofran) 4 mg Q6H PRN IVP Nausea & Vomiting 06/24/19 19:00 07/24/19 18:59 Pantoprazole (Protonix) 40 mg DAILY IVP 06/25/19 09:00 07/16/19 08:59 06/25/19 08:43 Piperacillin Sod/ Tazobactam Sod 3.375 gm/Sodium Chloride 110 ml @ 27.5 mls/hr EVERY 8 HOURS IVPB 06/25/19 14:00 06/30/19 13:59 Regadenoson (Lexiscan) 0.4 mg ONCE PRN IV stress test 06/24/19 18:45 06/26/19 18:44 Vancomycin HCl (Vanco rx to dose) 1 ea DAILY PRN MISC . 06/25/19 10:00 07/25/19 09:59 Pranay Waller MD Jun 25, 2019 14:34
[2019-06-25] MEDS: Piperacillin/Tazobactam 3.375 GM in NS 110 ML IVPB SCH ×2 (15:14→21:35)
[2019-06-25 16:00] VITALS: BP 128/63
--- NOTE | 2019-06-25 16:01 | General Progress Note ---
Assessment/Plan Problem List: (1) Renal failure ICD Codes: N19 - Unspecified kidney failure SNOMED: 07885557 Qualifiers: Qualified Codes: N17.9 - Acute kidney failure, unspecified (2) Transient hypotension ICD Codes: I95.9 - Hypotension, unspecified SNOMED: 40841100685501 (3) Sepsis ICD Codes: A41.9 - Sepsis, unspecified organism SNOMED: 06361911 Qualifiers: Qualified Codes: A41.9 - Sepsis, unspecified organism; R65.21 - Severe sepsis with septic shock; N17.9 - Acute kidney failure, unspecified (4) Hypoxia ICD Codes: R09.02 - Hypoxemia SNOMED: 943538049 Status: unchanged, deteriorating Assessment/Plan: 73 year old man with HTN, IDDM, ? history of CVA who presented to [facility] ED with nausea,vomiting. #septic shock, POA #Klebsiella bacteremia #Leukocytosis - new -ICU --> [facility] -cont antibiotics as per ID recs -ceftriaxone and flagyl - day # 7 abx -Vancomycin, fluconazole added for line, fungal coverage. -repeat cultures 3/ NGND. -sudden jump in WBC 3/4, repeat cultures ordered per ID. -Repeat CT A/P ordered for interval change, r/o abscess. #Chronic systolic CHF -Cardiology following. -TTE with EF ~40% -Continue MTP 25 BID -Start aldactone when Cr < 1.5 -Stress test when more stable. #acute hypoxic resp failure without hypercarbia -intermittent BiPAP -continue inhaled bronchodilators -Pulm/CCM following -bipap prn and QHS #NSTEMI, peak trop of 2, likely due to demand ischemia -Stop heparin due to thrombocytopenia -Cardiology following #acute kidney injury on CKD, possible ATN -IV hydration stopped as above -Nephrology following -monitor BMP -avoid nephrotoxic meds -scr with improvement #acute pancreatitis -Advance diet as per GI -? Need for EUS #Thrombocytopenia, no active bleeding noted #Rule out HIT -off heparin -transfuse for Platelets < 20K -cont to monitor daily CBC -f/u HIT panel -Hematology consult appreciated #Hypokalemia, hypomagnesemia -replace and monitor labs #lactic acidosis #HTN -cont to hold BP meds #DM type 2 -ISS VTE PPx Heparin Full Code Time spent on encounter: 38 mins, >50% on counseling, coordination of care. Time of note doesn't reflect time of encounter. Subjective Date patient seen: Jun 25, 2019 Time patient seen: 10:30 ROS Limited/Unobtainable: No Constitutional: Denies: no symptoms, chills, diaphoresis, fever, malaise, weakness, other HEENT: Denies: no symptoms, eye pain, blurred vision, tearing, double vision, ear pain, ear discharge, nose pain, nose congestion, throat pain, throat swelling, mouth pain, mouth swelling, other Cardiovascular: Denies: no symptoms, chest pain, edema, irregular heart rate, lightheadedness, palpitations, syncope, other Respiratory: Denies: no symptoms, cough, orthopnea, shortness of breath, SOB with excertion, SOB at rest, sputum, stridor, wheezing, other Gastrointestinal/Abdominal: Reports: no symptoms, abdomen distended, abdominal pain, black stools, tarry stools, blood in stool, constipated, diarrhea, difficulty swallowing, nausea, poor appetite, poor fluid intake, rectal bleeding , vomiting, other Genitourinary: Denies: no symptoms, burning, discharge, frequency, flank pain, hematuria, incontinence, pain, urgency, other Neurologic/Psychiatric: Denies: no symptoms, anxiety, depressed, emotional problems, headache, numbness, paresthesia, pre-existing deficit, seizure, tingling, tremors, weakness, other Endocrine: Denies: no symptoms, excessive sweating, flushing, intolerance to cold, intolerance to heat, increased hunger, increased thirst, increased urine, unexplained weight gain, unexplained weight loss, other Hematologic/Lymphatic: Denies: no symptoms, anemia, easy bleeding, easy bruising, other Allergies: Coded Allergies: No Known Allergies (Unverified , 06/02/19) Subjective resting in bed, eyes closed. complaining of abdominal pain. Objective Last 24 Hour Vital Signs Date Time Temp Pulse Resp B/P (MAP) Pulse Ox O2 Delivery O2 Flow Rate FiO2 06/25/19 12:00 98.1 107 19 104/62 (76) 93 107 06/25/19 12:00 108 06/25/19 09:00 Nasal Cannula 3.0 06/25/19 09:00 106 127/70 06/25/19 09:00 106 127/70 06/25/19 08:25 81 18 94 Nasal Cannula 2.0 32 06/25/19 08:20 94 Nasal Cannula 2.0 28 06/25/19 08:00 108 06/25/19 08:00 98.1 106 20 127/70 (89) 93 106 06/25/19 04:00 98.4 98 20 133/74 (93) 97 06/25/19 04:00 98 06/25/19 00:00 98.2 77 20 159/76 (103) 94 06/25/19 00:00 67 06/24/19 22:00 30 06/24/19 21:19 72 132/62 06/24/19 21:00 Nasal Cannula 3.0 06/24/19 20:11 98 Nasal Cannula 2.0 28 06/24/19 20:11 71 20 98 Nasal Cannula 3.0 32 06/24/19 20:00 97.5 72 20 132/62 (85) 97 06/24/19 20:00 71 06/24/19 16:01 Nasal Cannula 3.0 06/24/19 16:00 80 06/24/19 16:00 97.8 68 18 142/71 (94) 97 Intake and Output 06/24/19 06/25/19 19:00 07:00 Intake Total 1000 ml Output Total 1100 ml 450 ml Balance -100 ml -450 ml Intake Oral 1000 ml Output Urine Total 1100 ml 450 ml # Bowel Movements 4 1 Laboratory Tests 06/25/19 05:40: White Blood Count 29.8#*H, Red Blood Count 4.94, Hemoglobin 14.1L, Hematocrit 42.6#, Mean Corpuscular Volume 86, Mean Corpuscular Hemoglobin 28.6, Mean Corpuscular Hemoglobin Concent 33.2, Red Cell Distribution Width 12.8, Platelet Count 110#L, Mean Platelet Volume 9.8, Neutrophils (%) (Auto) , Lymphocytes (%) (Auto) , Monocytes (%) (Auto) , Eosinophils (%) (Auto) , Basophils (%) (Auto) , Differential Total Cells Counted 100, Neutrophils % (Manual) 93H, Lymphocytes % (Manual) 5L, Monocytes % (Manual) 2, Eosinophils % (Manual) 0, Basophils % ( Manual) 0, Band Neutrophils 0, Platelet Estimate DecreasedL, Platelet Morphology Normal, Red Blood Cell Morphology Normal, Sodium Level 137, Potassium Level 4.0, Chloride Level 106, Carbon Dioxide Level 18L, Anion Gap 13 , Blood Urea Nitrogen 36H, Creatinine 1.8H, Estimat Glomerular Filtration Rate 37.2, Glucose Level 184H, Calcium Level 8.2L, Amylase Level 249H, Lipase 1000H Height (Feet): 5 Height (Inches): 7.00 Weight (Pounds): 244 General Appearance: no apparent distress, alert Neck: supple Cardiovascular: normal rate, regular rhythm Respiratory/Chest: lungs clear, normal breath sounds Abdomen: soft, tender Neurologic: alert, oriented x 3 Ama Mallory M.D. Jun 25, 2019 16:01
--- NOTE | 2019-06-25 16:37 | Diagnostic Imaging Report ---
Indication: Dyspnea Comparison: 06/23/2019 A single view chest radiograph was obtained. Findings: Interstitial is mildly prominent but findings appear stable. There is suspected mild atelectasis right lung base. Please correlate clinically. Similar findings seen previously. The heart is enlarged. IMPRESSION: Mild right basal atelectasis. No change otherwise.
[2019-06-25] MEDS ORDERED: cefTRIAXone 1 GM in D5W 50 ML IVPB SCH (17:00)
--- NOTE | 2019-06-25 18:40 | NUR ---
HAND-OFF: Report given to .STEPHANI SCHULER
[2019-06-25 20:00] VITALS: BP 133/60
[2019-06-25 20:38] LABS: APPEARANCE,URINE SLIGHTLY CLOUDY; BILIRUBIN, URINE 1+ (NEGATIVE); GLUCOSE, URINE (UA) 1+ (NEGATIVE); KETONES,URINE 1+ (NEGATIVE); LEUKOCYTE ESTERASE ,URINE 2+ (NEGATIVE); NITRITE,URINE POSITIVE (NEGATIVE); PH,URINE 5 (4.5-8.0); PROTEIN,URINE 3+ (NEGATIVE); UROBILINOGEN,URINE NORMAL MG/DL (0.0-1.0)
[2019-06-25 20:43] LABS: COLOR,URINE YELLOW
[2019-06-25] MEDS: Dyna-Hex 2% Top Sol 2oz TOPIC SCH (21:27)
[2019-06-26] VITALS: BP 131/68
[2019-06-26 04:00] VITALS: BP 130/72
[2019-06-26] MEDS: Piperacillin/Tazobactam 3.375 GM in NS 110 ML IVPB SCH ×3 (05:54→22:00)
--- NOTE | 2019-06-26 05:59 | Hematology/Onc Progress Note ---
Assessment/Plan Assessment/Plan Assessment and recs: # Thrombocytopenia - potential causes multifactorial, in this case due to sepsis , less likely due to heparin --> Hep panel and HIV are negative --> US abd to evaluate for cirrhosis and hsm ordered and none noted --> Peripheral smear ordered to evaluate for blasts /schistocytes --> abx and other meds have been reviewed --> ok for ppx if plt >50k w/ either heparin or lovenox --> Transfuse if Plt < 20k and fever, or if Plt < 10k without fever --> plt trend 41-->49k-->63k-->110 # 10.7 cm unilocular cystic structure in the left upper quadrant retroperitoneal , corresponding to findings reported on recent CT scan. Most likely represents a pancreatic pseudocyst. --> continue to monitor as per gi --> repeat us or ct in short order, weeks to months to re-eval --> repeat ct showed mild enlargement of cyst/mass, will need further repeat imaging # Leukocytosis with hx of infection --> on vanc/zosyn -> ct a/p still pending --> pending source eval per id # DM, ? history of CVA who [place] [facility] [facility] [place]omiting. --> a1c goal <8, accuchecks qac/qhs # Septic shock, POA, possible biliary source --> cont ICU level of care --> cont IV hydration --> on abx, as per pulm/cc # Acute hypoxic resp failure without hypercarbia --> Intermittent BiPAP --> continue inhaled bronchodilators # NSTEMI, peak trop of 2, likely due to demand ischemia --> Stop heparin due to thrombocytopenia --> duplex lower legs is neg --> HIT neg --> per cards # Acute kidney injury on CKD, possible ATN --> Nephrology following # Acute pancreatitis --> hydration # HTN --> cont to hold BP meds # DM type 2 --> ISS # Dvt ppx scds Appreciate consultation and sydney Rn Subjective Constitutional: Denies: no symptoms, chills, fever, malaise, weakness, other HEENT: Denies: no symptoms, eye pain, blurred vision, tearing, double vision, ear pain, ear discharge, nose pain, nose congestion, throat pain, throat swelling, mouth pain, mouth swelling, other Respiratory: Denies: no symptoms, cough, shortness of breath, SOB with excertion, SOB at rest, sputum, wheezing, other Gastrointestinal/Abdominal: Denies: no symptoms, abdomen distended, abdominal pain, black stools, tarry stools, blood in stool, constipated, diarrhea, difficulty swallowing, nausea, poor appetite, poor fluid intake, rectal bleeding , vomiting, other Neurologic/Psychiatric: Denies: no symptoms, anxiety, depressed, emotional problems, headache, numbness, paresthesia, pre-existing deficit, seizure, tingling, tremors, weakness, other Endocrine: Denies: no symptoms, excessive sweating, flushing, intolerance to cold, intolerance to heat, increased hunger, increased thirst, increased urine, unexplained weight gain, unexplained weight loss, other Hematologic/Lymphatic: Denies: no symptoms, anemia, easy bleeding, easy bruising, adenopathy, other Allergies: Coded Allergies: No Known Allergies (Unverified , 06/02/19) Subjective 06/20: awake and alert, no overnight events, v mask 06/22: plts remain low, in the 40s, off anticaog, sydney rn, pending labs 06/23: is on broad spectrum abx, fluncon, ctx, flagyl, vanc, no f/c 06/24: on tele, no overnight events, wbc at 29.8, plt count improved 06/25: ct a/p is still pending given elev wbc, off pressors in tele Objective Objective Current Medications Medications (Trade) Dose Ordered Sig/Arley Route PRN Reason Start Time Stop Time Status Last Admin Dose Admin Acetaminophen (Tylenol) 650 mg Q4H PRN ORAL Mild Pain (Pain Scale 1-3) 06/24/19 19:00 07/15/19 18:59 06/25/19 21:34 Albumin Human 50 ml @ 50 mls/hr DAILYPRN PRN IV For hypotension 06/25/19 09:00 07/25/19 08:59 Amlodipine Besylate (Norvasc) 5 mg DAILY ORAL 06/25/19 09:00 07/24/19 08:59 Aspirin (ASA) 81 mg DAILY ORAL 06/25/19 09:00 07/20/19 08:59 Barium Sulfate (Readi-Cat 2) 450 ml NOW PRN ORAL Radiology Procedure 06/25/19 16:00 06/27/19 15:59 Bisacodyl (Dulcolax) 10 mg DAILYPRN PRN RECTAL Constipation 06/24/19 19:00 07/24/19 18:59 Chlorhexidine Gluconate (Mena-Hex 2%) 1 applic DAILY@2000 TOPIC 06/24/19 20:00 07/16/19 19:59 06/25/19 21:27 Dextrose (Dextrose 50%) 25 ml Q30M PRN IV Hypoglycemia 06/24/19 18:45 07/16/19 18:05 Dextrose (Dextrose 50%) 50 ml Q30M PRN IV Hypoglycemia 06/24/19 18:45 07/16/19 18:05 Insulin Aspart (NovoLOG) AC+HS SUBQ 06/24/19 21:00 07/20/19 17:59 06/25/19 21:49 Magnesium Hydroxide (Mom) 30 ml HSPRN PRN ORAL Constipation 06/24/19 21:00 07/15/19 20:59 Metoprolol Tartrate (Lopressor) 25 mg Q12HR ORAL 06/24/19 21:00 07/20/19 08:59 06/25/19 21:26 Ondansetron HCl (Zofran) 4 mg Q6H PRN IVP Nausea & Vomiting 06/24/19 19:00 07/24/19 18:59 Pantoprazole (Protonix) 40 mg DAILY IVP 06/25/19 09:00 07/16/19 08:59 06/25/19 08:43 Piperacillin Sod/ Tazobactam Sod 3.375 gm/Sodium Chloride 110 ml @ 27.5 mls/hr EVERY 8 HOURS IVPB 06/25/19 14:00 06/30/19 13:59 06/26/19 05:54 Regadenoson (Lexiscan) 0.4 mg ONCE PRN IV stress test 06/24/19 18:45 06/26/19 18:44 Vancomycin HCl (Vanco rx to dose) 1 ea DAILY PRN MISC . 06/25/19 10:00 07/25/19 09:59 Last 24 Hour Vital Signs Date Time Temp Pulse Resp B/P (MAP) Pulse Ox O2 Delivery O2 Flow Rate FiO2 06/26/19 04:00 97.7 82 19 130/72 (91) 95 06/26/19 04:00 82 06/26/19 00:00 98.9 70 18 131/68 (89) 95 06/26/19 00:00 91 06/25/19 22:07 98.1 06/25/19 22:00 3.0 30 06/25/19 21:26 90 133/60 06/25/19 21:00 Nasal Cannula 3.0 06/25/19 20:00 101 06/25/19 20:00 99.0 90 18 133/60 (84) 95 06/25/19 20:00 95 Nasal Cannula 2.0 28 06/25/19 20:00 79 18 95 Nasal Cannula 2.0 32 06/25/19 16:00 110 06/25/19 16:00 98.1 110 20 128/63 (84) 91 110 06/25/19 12:00 98.1 107 19 104/62 (76) 93 107 06/25/19 12:00 108 06/25/19 09:00 Nasal Cannula 3.0 06/25/19 09:00 106 127/70 06/25/19 09:00 106 127/70 06/25/19 08:25 81 18 94 Nasal Cannula 2.0 32 06/25/19 08:20 94 Nasal Cannula 2.0 28 06/25/19 08:00 108 06/25/19 08:00 98.1 106 20 127/70 (89) 93 106 06/25/19 04:00 98.4 98 20 133/74 (93) 97 06/25/19 04:00 98 06/25/19 00:00 98.2 77 20 159/76 (103) 94 06/25/19 00:00 67 06/24/19 22:00 30 06/24/19 21:19 72 132/62 06/24/19 21:00 Nasal Cannula 3.0 06/24/19 20:11 98 Nasal Cannula 2.0 28 06/24/19 20:11 71 20 98 Nasal Cannula 3.0 32 06/24/19 20:00 97.5 72 20 132/62 (85) 97 06/24/19 20:00 71 06/24/19 16:01 Nasal Cannula 3.0 06/24/19 16:00 80 06/24/19 16:00 97.8 68 18 142/71 (94) 97 06/24/19 12:00 98.3 81 17 138/72 (94) 98 06/24/19 12:00 Nasal Cannula 3.0 06/24/19 12:00 80 06/24/19 08:54 83 141/75 06/24/19 08:54 83 141/75 06/24/19 08:01 Nasal Cannula 3.0 06/24/19 08:00 81 06/24/19 08:00 97.1 83 18 141/75 (97) 96 06/24/19 06:57 98 Nasal Cannula 2.0 28 06/24/19 06:57 78 22 98 Nasal Cannula 2.0 28 Intake and Output 06/25/19 06/26/19 19:00 07:00 Intake Total 789.916 ml 27.5 ml Output Total 150 ml Balance 639.916 ml 27.5 ml Intake Oral 240 ml IV Total 549.916 ml 27.5 ml Output Urine Total 150 ml # Bowel Movements 1 1 Labs Test 06/23/19 18:00 06/24/19 03:40 06/25/19 05:40 06/25/19 18:00 Random Vancomycin Level 7.5 ug/mL White Blood Count 14.6 K/UL (4.8-10.8) 29.8 K/UL (4.8-10.8) Red Blood Count 3.78 M/UL (4.70-6.10) 4.94 M/UL (4.70-6.10) Hemoglobin 11.0 G/DL (14.2-18.0) 14.1 G/DL (14.2-18.0) Hematocrit 32.3 % (42.0-52.0) 42.6 % (42.0-52.0) Mean Corpuscular Volume 85 FL (80-99) 86 FL (80-99) Mean Corpuscular Hemoglobin 29.2 PG (27.0-31.0) 28.6 PG (27.0-31.0) Mean Corpuscular Hemoglobin Concent 34.2 G/DL (32.0-36.0) 33.2 G/DL (32.0-36.0) Red Cell Distribution Width 12.9 % (11.6-14.8) 12.8 % (11.6-14.8) Platelet Count 63 K/UL (150-450) 110 K/UL (150-450) Mean Platelet Volume 10.6 FL (6.5-10.1) 9.8 FL (6.5-10.1) Neutrophils (%) (Auto) % (45.0-75.0) % (45.0-75.0) Lymphocytes (%) (Auto) % (20.0-45.0) % (20.0-45.0) Monocytes (%) (Auto) % (1.0-10.0) % (1.0-10.0) Eosinophils (%) (Auto) % (0.0-3.0) % (0.0-3.0) Basophils (%) (Auto) % (0.0-2.0) % (0.0-2.0) Differential Total Cells Counted 100 100 Neutrophils % (Manual) 87 % (45-75) 93 % (45-75) Lymphocytes % (Manual) 6 % (20-45) 5 % (20-45) Monocytes % (Manual) 5 % (1-10) 2 % (1-10) Eosinophils % (Manual) 2 % (0-3) 0 % (0-3) Basophils % (Manual) 0 % (0-2) 0 % (0-2) Band Neutrophils 0 % (0-8) 0 % (0-8) Platelet Estimate Decreased Decreased Platelet Morphology Normal Normal Red Blood Cell Morphology Normal Normal Sodium Level 145 MMOL/L (136-145) 137 MMOL/L (136-145) Potassium Level 3.8 MMOL/L (3.5-5.1) 4.0 MMOL/L (3.5-5.1) Chloride Level 111 MMOL/L (98-107) 106 MMOL/L (98-107) Carbon Dioxide Level 20 MMOL/L (21-32) 18 MMOL/L (21-32) Anion Gap 14 mmol/L (5-15) 13 mmol/L (5-15) Blood Urea Nitrogen 37 mg/dL (7-18) 36 mg/dL (7-18) Creatinine 1.7 MG/DL (0.55-1.30) 1.8 MG/DL (0.55-1.30) Estimat Glomerular Filtration Rate 39.7 mL/min (>60) 37.2 mL/min (>60) Glucose Level 119 MG/DL (74-106) 184 MG/DL (74-106) Calcium Level 8.1 MG/DL (8.5-10.1) 8.2 MG/DL (8.5-10.1) Total Bilirubin 0.4 MG/DL (0.2-1.0) Aspartate Amino Transf (AST/SGOT) 14 U/L (15-37) Alanine Aminotransferase (ALT/SGPT) 22 U/L (12-78) Alkaline Phosphatase 72 U/L (46-116) Total Protein 5.0 G/DL (6.4-8.2) Albumin 1.7 G/DL (3.4-5.0) Globulin 3.3 g/dL Albumin/Globulin Ratio 0.5 (1.0-2.7) Amylase Level 88 U/L (25-115) 249 U/L (25-115) Lipase 411 U/L (73-393) 1000 U/L (73-393) Urine Color Yellow Urine Appearance Slightly cloudy Urine pH 5 (4.5-8.0) Urine Specific [place] 1.025 (1.005-1.035) Urine Protein 3+ (NEGATIVE) Urine Glucose (UA) 1+ (NEGATIVE) Urine Ketones 1+ (NEGATIVE) Urine Blood 5+ (NEGATIVE) Urine Nitrite Positive (NEGATIVE) Urine Bilirubin 1+ (NEGATIVE) Urine Ictotest Negative (NEGATIVE) Urine Urobilinogen Normal MG/DL (0.0-1.0) Urine Leukocyte Esterase 2+ (NEGATIVE) Urine RBC 30-40 /HPF (0 - 0) Urine WBC 15-20 /HPF (0 - 0) Urine Squamous Epithelial Cells None /LPF (NONE/OCC) Urine Amorphous Sediment Many /LPF (NONE) Urine Bacteria Many /HPF (NONE) Urine Granular Casts 0-2 /LPF (NONE) Height (Feet): 5 Height (Inches): 7.00 Weight (Pounds): 244 Objective PE General Appearance: no apparent distress, alert HEENT: atraumatic, anicteric Neck: normal alignment, supple Respiratory/Chest: lungs clear, normal breath sounds, no respiratory distress Cardiovascular/Chest: normal rate, regular rhythm Abdomen: non tender, soft, no organomegaly Extremities: non-tender, normal inspection Skin Exam: warm/dry, cyanotic Neurologic: alert Kleynberg,Kana L. MD Jun 26, 2019 05:59
[2019-06-26] MEDS: NovoLOG Insulin Flexpen SUBQ SCH ×4 (06:04→21:00)
--- NOTE | 2019-06-26 07:15 | NUR ---
NURSE NOTES: Received patient from GANGA Dill. Patient is aaox4 and lying in bed. Patient shows SR on the track manager no signs of cardiac distress at this time. Patient is on 3L NC as ordered and tolerating well with O2 saturation of 96%. Patient has a Rivero cather for urinary retention and draining yellow urine. Patient has a Left FA 18g running Zosyn 3.375 at 27.5 ml/hr currently.No s/s of swelling or redness at IV site. Bed is in lowest postion, alarmed and locked. Optimal HOB placement. Side rails x2, and call light is within reach. Will continue to monitor.
--- NOTE | 2019-06-26 07:15 | NUR ---
HAND-OFF: Report given to Britt SCHULER.
[2019-06-26 07:28] LABS: HEMOGLOBIN 11.5 G/DL (14.2-18.0); MEAN CORPUSCULAR VOLUME 85 FL (80-99); PLATELET COUNT 159 K/UL (150-450); RED CELL DISTRIBUTION WIDTH 12.9 % (11.6-14.8)
[2019-06-26 07:48] LABS: ANION GAP 11 mmol/L (5-15); BLOOD UREA NITROGEN 48 mg/dL (7-18); CALCIUM 7.7 MG/DL (8.5-10.1); CARBON DIOXIDE 19 MMOL/L (21-32); CHLORIDE 107 MMOL/L (98-107); CREATININE 2.5 MG/DL (0.55-1.30); SODIUM 137 MMOL/L (136-145)
[2019-06-26 07:54] LABS: WHITE BLOOD COUNT 24.1 K/UL (4.8-10.8)
[2019-06-26 08:00] VITALS: BP 129/76
--- NOTE | 2019-06-26 08:08 | Cardiology Progress Note ---
Assessment/Plan Status: stable Assessment/Plan Assessment/Plan 73 year old man with HTN, IDDM, ? history of CVA who presented to [facility] [place] [facility] with nausea,vomiting and hypertensive urgency and SOB -Empiric ABX and IV fluids -> WBC now normal, no fevers, cultures negative -BiPAP prn, continue pulmonary rehab/toilet/CPT, serial chest x ray -V/Q and LE US negative for thrombus, CXR with cardiomegaly and interstitial prominence -Echocardiogram with LVEF 40% and PA pressure 55 mmHG and elevated right atrial pressures. -Continue diuresis to lower filling pressures, recommend repeating limited Echocardiogram once dry weight achieved to re-evaluate pulmonary/filling pressures -Continue low dose metoprolol 25 mg BID for systolic dysfunction and titrate -Start aldactone when creatinine <1.5, currently ARB/ACEI held due to ZARINA/ATN -Stress test prior to discharge when pulmonary status stable. Ordered for SUNDAY -Defer cardiac cath given lack of chest pain and poor renal function -D/c troponin check, d/c anticoagulation given low platelets, no indication for transfusion no bleeding noted Subjective Cardiovascular: Reports: no symptoms Respiratory: Reports: no symptoms Gastrointestinal/Abdominal: Reports: no symptoms Genitourinary: Reports: no symptoms Subjective Patient stable on floors, no acute events, vitals stable, PICC removed, Plan for stress test today/troponin pending Objective Last 24 Hour Vital Signs Date Time Temp Pulse Resp B/P (MAP) Pulse Ox O2 Delivery O2 Flow Rate FiO2 06/26/19 07:15 94 Nasal Cannula 3.0 32 06/26/19 07:15 86 18 94 Nasal Cannula 3.0 32 06/26/19 04:00 97.7 82 19 130/72 (91) 95 06/26/19 04:00 82 06/26/19 00:00 98.9 70 18 131/68 (89) 95 06/26/19 00:00 91 06/25/19 22:07 98.1 06/25/19 22:00 3.0 30 06/25/19 21:26 90 133/60 06/25/19 21:00 Nasal Cannula 3.0 06/25/19 20:00 101 06/25/19 20:00 99.0 90 18 133/60 (84) 95 06/25/19 20:00 95 Nasal Cannula 2.0 28 06/25/19 20:00 79 18 95 Nasal Cannula 2.0 32 06/25/19 16:00 110 06/25/19 16:00 98.1 110 20 128/63 (84) 91 110 06/25/19 12:00 98.1 107 19 104/62 (76) 93 107 06/25/19 12:00 108 06/25/19 09:00 Nasal Cannula 3.0 06/25/19 09:00 106 127/70 06/25/19 09:00 106 127/70 06/25/19 08:25 81 18 94 Nasal Cannula 2.0 32 06/25/19 08:20 94 Nasal Cannula 2.0 28 General Appearance: no apparent distress, alert EENT: PERRL/EOMI, normal ENT inspection, TMs normal, pharynx normal Neck: non-tender, normal alignment, supple, normal inspection, no JVD Rhythm: NSR Cardiovascular: normal peripheral pulses, normal rate, regular rhythm Respiratory/Chest: chest wall non-tender, lungs clear, normal breath sounds, no respiratory distress, no accessory muscle use Abdomen: normal bowel sounds, non tender, soft, no organomegaly, no mass Extremities: normal range of motion, non-tender, normal inspection, no calf tenderness, no swelling Neurologic: home care administrator II-XII grossly normal, no motor/sensory deficits Intake and Output 06/25/19 06/26/19 19:00 07:00 Intake Total 789.916 ml 27.5 ml Output Total 150 ml 320 ml Balance 639.916 ml -292.5 ml Intake Oral 240 ml IV Total 549.916 ml 27.5 ml Output Urine Total 150 ml 320 ml # Bowel Movements 1 2 Laboratory Tests Test 06/25/19 18:00 06/26/19 05:50 Urine Color Yellow Urine Appearance Slightly cloudy Urine pH 5 (4.5-8.0) Urine Specific [place] 1.025 (1.005-1.035) Urine Protein 3+ (NEGATIVE) H Urine Glucose (UA) 1+ (NEGATIVE) H Urine Ketones 1+ (NEGATIVE) H Urine Blood 5+ (NEGATIVE) H Urine Nitrite Positive (NEGATIVE) H Urine Bilirubin 1+ (NEGATIVE) H Urine Ictotest Negative (NEGATIVE) Urine Urobilinogen Normal MG/DL (0.0-1.0) Urine Leukocyte Esterase 2+ (NEGATIVE) H Urine RBC 30-40 /HPF (0 - 0) H Urine WBC 15-20 /HPF (0 - 0) H Urine Squamous Epithelial Cells None /LPF (NONE/OCC) Urine Amorphous Sediment Many /LPF (NONE) H Urine Bacteria Many /HPF (NONE) H Urine Granular Casts 0-2 /LPF (NONE) H White Blood Count 24.1 K/UL (4.8-10.8) *H Red Blood Count 4.00 M/UL (4.70-6.10) L Hemoglobin 11.5 G/DL (14.2-18.0) L Hematocrit 34.0 % (42.0-52.0) L Mean Corpuscular Volume 85 FL (80-99) Mean Corpuscular Hemoglobin 28.8 PG (27.0-31.0) Mean Corpuscular Hemoglobin Concent 33.8 G/DL (32.0-36.0) Red Cell Distribution Width 12.9 % (11.6-14.8) Platelet Count 159 K/UL (150-450) Mean Platelet Volume 8.7 FL (6.5-10.1) Neutrophils (%) (Auto) % (45.0-75.0) Lymphocytes (%) (Auto) % (20.0-45.0) Monocytes (%) (Auto) % (1.0-10.0) Eosinophils (%) (Auto) % (0.0-3.0) Basophils (%) (Auto) % (0.0-2.0) Neutrophils % (Manual) Pending Lymphocytes % (Manual) Pending Platelet Estimate Pending Platelet Morphology Pending Sodium Level 137 MMOL/L (136-145) Potassium Level 4.0 MMOL/L (3.5-5.1) Chloride Level 107 MMOL/L (98-107) Carbon Dioxide Level 19 MMOL/L (21-32) L Anion Gap 11 mmol/L (5-15) Blood Urea Nitrogen 48 mg/dL (7-18) H Creatinine 2.5 MG/DL (0.55-1.30) H Estimat Glomerular Filtration Rate 25.4 mL/min (>60) Glucose Level 154 MG/DL (74-106) H Calcium Level 7.7 MG/DL (8.5-10.1) L Random Vancomycin Level 14.4 ug/mL Paul Reed MD Jun 26, 2019 08:08
[2019-06-26] MEDS: Pantoprazole Inj IVP SCH (08:28)
[2019-06-26] MEDS: Aspirin Baby 81mg ORAL SCH (08:28)
--- NOTE | 2019-06-26 09:30 | Nephrology Progress Note ---
Assessment/Plan Plan #acute kidney injury - on baseline CKD- Fena 0.4% suggestive of pre-renal aztemia- however UA with sediments and RBC concerning for developing ATN- patient with baseline diabetic nephropathy -Cr uptrended today #sepsis #acute pancreatitis- improved # Hypokalemia, hypopmagnesemia - repleted #lactic acidosis- improved #HTN- stable #DM- controlled #NSTEMI #hypernatremia - improved #eliana on CKD - baseline Cr in mid to high 1s #metabolic acidosis - due to renal insufficiency - Cr up to 2.5 - start 1/2ns at 75cc/hr for 24 hours - monitor Cr - add sodium bicarb 650mg TID #sepsis - antibiotics per ID- - avoid supratherapeutic vanco level - monitor WBC #troponemia - heparin on hold for thrombocytopenia - HIT? - cardiology eval - stress test when ok per cardiology #HTN - hold lisinopril - resume amldipine 5mg daily - metop 25mg BID #DM - hold metformin - ISS Subjective ROS Limited/Unobtainable: No Subjective Breathing stable today - on NC Cr up to 2.5 WBC 24.1 BP stable Objective Objective Last 24 Hour Vital Signs Date Time Temp Pulse Resp B/P (MAP) Pulse Ox O2 Delivery O2 Flow Rate FiO2 06/26/19 08:28 87 129/76 06/26/19 08:27 87 129/76 06/26/19 08:00 96.7 87 19 129/76 (93) 96 06/26/19 07:15 94 Nasal Cannula 3.0 32 06/26/19 07:15 86 18 94 Nasal Cannula 3.0 32 06/26/19 04:00 97.7 82 19 130/72 (91) 95 06/26/19 04:00 82 06/26/19 00:00 98.9 70 18 131/68 (89) 95 06/26/19 00:00 91 06/25/19 22:07 98.1 06/25/19 22:00 3.0 30 06/25/19 21:26 90 133/60 06/25/19 21:00 Nasal Cannula 3.0 06/25/19 20:00 101 06/25/19 20:00 99.0 90 18 133/60 (84) 95 06/25/19 20:00 95 Nasal Cannula 2.0 28 06/25/19 20:00 79 18 95 Nasal Cannula 2.0 32 06/25/19 16:00 110 06/25/19 16:00 98.1 110 20 128/63 (84) 91 110 06/25/19 12:00 98.1 107 19 104/62 (76) 93 107 06/25/19 12:00 108 Intake and Output 06/25/19 06/26/19 19:00 07:00 Intake Total 789.916 ml 27.5 ml Output Total 150 ml 320 ml Balance 639.916 ml -292.5 ml Intake Oral 240 ml IV Total 549.916 ml 27.5 ml Output Urine Total 150 ml 320 ml # Bowel Movements 1 2 Laboratory Tests 06/25/19 18:00: Urine Color Yellow, Urine Appearance Slightly cloudy, Urine pH 5, Urine Specific [place] 1.025, Urine Protein 3+H, Urine Glucose (UA) 1+H, Urine Ketones 1+H, Urine Blood 5+H, Urine Nitrite PositiveH, Urine Bilirubin 1+H, Urine Ictotest Negative, Urine Urobilinogen Normal, Urine Leukocyte Esterase 2+H , Urine RBC 30-40H, Urine WBC 15-20H, Urine Squamous Epithelial Cells None, Urine Amorphous Sediment ManyH, Urine Bacteria ManyH, Urine Granular Casts 0-2H 06/26/19 05:50: White Blood Count 24.1*H, Red Blood Count 4.00L, Hemoglobin 11.5L, Hematocrit 34.0L, Mean Corpuscular Volume 85, Mean Corpuscular Hemoglobin 28.8, Mean Corpuscular Hemoglobin Concent 33.8, Red Cell Distribution Width 12.9, Platelet Count 159, Mean Platelet Volume 8.7, Neutrophils (%) (Auto) , Lymphocytes (%) ( Auto) , Monocytes (%) (Auto) , Eosinophils (%) (Auto) , Basophils (%) (Auto) , Neutrophils % (Manual) [Pending], Lymphocytes % (Manual) [Pending], Platelet Estimate [Pending], Platelet Morphology [Pending], Sodium Level 137, Potassium Level 4.0, Chloride Level 107, Carbon Dioxide Level 19L, Anion Gap 11, Blood Urea Nitrogen 48H, Creatinine 2.5H, Estimat Glomerular Filtration Rate 25.4, Glucose Level 154H, Calcium Level 7.7L, Random Vancomycin Level 14.4 3/5/20 05:55: Troponin I 0.063H Height (Feet): 5 Height (Inches): 7.00 Weight (Pounds): 244 Objective General Appearance: Alert - no distress Lines, tubes and drains: peripheral HEENT: normocephalic, atraumatic Neck: non-tender, normal alignment Respiratory/Chest: chest wall non-tender, lungs clear, normal breath sounds Cardiovascular/Chest: normal rate, regular rhythm Abdomen: normal bowel sounds, non tender, soft Extremities: non-tender, normal inspection Skin Exam: normal pigmentation, no diaphoresis Gerson Salgado M.D. Jun 26, 2019 09:30
--- NOTE | 2019-06-26 10:52 | General Progress Note ---
Assessment/Plan Problem List: (1) Renal failure ICD Codes: N19 - Unspecified kidney failure SNOMED: 58230700 Qualifiers: Qualified Codes: N17.9 - Acute kidney failure, unspecified (2) Transient hypotension ICD Codes: I95.9 - Hypotension, unspecified SNOMED: 40842131084390 (3) Sepsis ICD Codes: A41.9 - Sepsis, unspecified organism SNOMED: 75204455 Qualifiers: Qualified Codes: A41.9 - Sepsis, unspecified organism; R65.21 - Severe sepsis with septic shock; N17.9 - Acute kidney failure, unspecified (4) Hypoxia ICD Codes: R09.02 - Hypoxemia SNOMED: 517842814 Status: stable Assessment/Plan: 73 year old man with HTN, IDDM, ? history of CVA who presented to [facility] [place] [facility] ED with nausea,vomiting. #septic shock, POA #Klebsiella bacteremia #Leukocytosis - new -ICU --> [facility] -cont antibiotics as per ID recs -ceftriaxone and flagyl - day # 7 abx -Vancomycin, fluconazole added for line, fungal coverage. -repeat cultures 3/ NGND. -sudden jump in WBC 3/4, repeat cultures ordered per ID. -Repeat CT A/P ordered for interval change, r/o abscess. #Chronic systolic CHF -Cardiology following. -TTE with EF ~40% -Continue MTP 25 BID -Start aldactone when Cr < 1.5 -Stress test when more stable. #acute hypoxic resp failure without hypercarbia -intermittent BiPAP -continue inhaled bronchodilators -Pulm/CCM following -bipap prn and QHS #NSTEMI, peak trop of 2, likely due to demand ischemia -Stop heparin due to thrombocytopenia -Cardiology following #acute kidney injury on CKD, possible ATN -IV hydration stopped as above -Nephrology following -monitor BMP -avoid nephrotoxic meds -scr with improvement #acute pancreatitis -Advance diet as per GI -? Need for EUS #Thrombocytopenia, no active bleeding noted #Rule out HIT -off heparin -transfuse for Platelets < 20K -cont to monitor daily CBC -f/u HIT panel -Hematology consult appreciated #Hypokalemia, hypomagnesemia -replace and monitor labs #lactic acidosis #HTN -cont to hold BP meds #DM type 2 -ISS VTE PPx Heparin Full Code Time spent on encounter: 36 mins, >50% on counseling, coordination of care. Time of note doesn't reflect time of encounter. Subjective Date patient seen: Jun 26, 2019 Time patient seen: 10:00 ROS Limited/Unobtainable: Yes Constitutional: Denies: no symptoms, chills, diaphoresis, fever, malaise, weakness, other HEENT: Denies: no symptoms, eye pain, blurred vision, tearing, double vision, ear pain, ear discharge, nose pain, nose congestion, throat pain, throat swelling, mouth pain, mouth swelling, other Cardiovascular: Denies: no symptoms, chest pain, edema, irregular heart rate, lightheadedness, palpitations, syncope, other Respiratory: Denies: no symptoms, cough, orthopnea, shortness of breath, SOB with excertion, SOB at rest, sputum, stridor, wheezing, other Gastrointestinal/Abdominal: Reports: abdominal pain Genitourinary: Denies: no symptoms, burning, discharge, frequency, flank pain, hematuria, incontinence, pain, urgency, other Neurologic/Psychiatric: Denies: no symptoms, anxiety, depressed, emotional problems, headache, numbness, paresthesia, pre-existing deficit, seizure, tingling, tremors, weakness, other Endocrine: Denies: no symptoms, excessive sweating, flushing, intolerance to cold, intolerance to heat, increased hunger, increased thirst, increased urine, unexplained weight gain, unexplained weight loss, other Hematologic/Lymphatic: Denies: no symptoms, anemia, easy bleeding, easy bruising, other Allergies: Coded Allergies: No Known Allergies (Unverified , 06/02/19) Subjective resting in bed. Abd pain is improved. no issues Objective Last 24 Hour Vital Signs Date Time Temp Pulse Resp B/P (MAP) Pulse Ox O2 Delivery O2 Flow Rate FiO2 06/26/19 09:00 Nasal Cannula 3.0 06/26/19 08:28 87 129/76 06/26/19 08:27 87 129/76 06/26/19 08:00 96.7 87 19 129/76 (93) 96 06/26/19 08:00 81 06/26/19 07:15 94 Nasal Cannula 3.0 32 06/26/19 07:15 86 18 94 Nasal Cannula 3.0 32 06/26/19 04:00 97.7 82 19 130/72 (91) 95 06/26/19 04:00 82 06/26/19 00:00 98.9 70 18 131/68 (89) 95 06/26/19 00:00 91 06/25/19 22:07 98.1 06/25/19 22:00 3.0 30 06/25/19 21:26 90 133/60 06/25/19 21:00 Nasal Cannula 3.0 06/25/19 20:00 101 06/25/19 20:00 99.0 90 18 133/60 (84) 95 06/25/19 20:00 95 Nasal Cannula 2.0 28 06/25/19 20:00 79 18 95 Nasal Cannula 2.0 32 06/25/19 16:00 110 06/25/19 16:00 98.1 110 20 128/63 (84) 91 110 06/25/19 12:00 98.1 107 19 104/62 (76) 93 107 06/25/19 12:00 108 Intake and Output 06/25/19 06/26/19 19:00 07:00 Intake Total 789.916 ml 27.5 ml Output Total 150 ml 320 ml Balance 639.916 ml -292.5 ml Intake Oral 240 ml IV Total 549.916 ml 27.5 ml Output Urine Total 150 ml 320 ml # Bowel Movements 1 2 Laboratory Tests 06/25/19 18:00: Urine Color Yellow, Urine Appearance Slightly cloudy, Urine pH 5, Urine Specific [place] 1.025, Urine Protein 3+H, Urine Glucose (UA) 1+H, Urine Ketones 1+H, Urine Blood 5+H, Urine Nitrite PositiveH, Urine Bilirubin 1+H, Urine Ictotest Negative, Urine Urobilinogen Normal, Urine Leukocyte Esterase 2+H , Urine RBC 30-40H, Urine WBC 15-20H, Urine Squamous Epithelial Cells None, Urine Amorphous Sediment ManyH, Urine Bacteria ManyH, Urine Granular Casts 0-2H 06/26/19 05:50: White Blood Count 24.1*H, Red Blood Count 4.00L, Hemoglobin 11.5L, Hematocrit 34.0L, Mean Corpuscular Volume 85, Mean Corpuscular Hemoglobin 28.8, Mean Corpuscular Hemoglobin Concent 33.8, Red Cell Distribution Width 12.9, Platelet Count 159, Mean Platelet Volume 8.7, Neutrophils (%) (Auto) , Lymphocytes (%) ( Auto) , Monocytes (%) (Auto) , Eosinophils (%) (Auto) , Basophils (%) (Auto) , Neutrophils % (Manual) [Pending], Lymphocytes % (Manual) [Pending], Platelet Estimate [Pending], Platelet Morphology [Pending], Sodium Level 137, Potassium Level 4.0, Chloride Level 107, Carbon Dioxide Level 19L, Anion Gap 11, Blood Urea Nitrogen 48H, Creatinine 2.5H, Estimat Glomerular Filtration Rate 25.4, Glucose Level 154H, Calcium Level 7.7L, Random Vancomycin Level 14.4 06/26/19 05:55: Troponin I 0.063H Height (Feet): 5 Height (Inches): 7.00 Weight (Pounds): 244 General Appearance: no apparent distress, alert Neck: supple Cardiovascular: normal rate, regular rhythm Respiratory/Chest: lungs clear, normal breath sounds Abdomen: non tender, soft Ama Mallory M.D. Jun 26, 2019 10:52
[2019-06-26] MEDS ORDERED: Vancomycin 1 GM in NS 275 ML IVPB SCH (11:00)
--- NOTE | 2019-06-26 11:00 | NUR ---
NURSE NOTES: Patient noted with NPO no caffeine, no chocolate order, suggesting cardiac stress test order. Contacted and informed Dr. Reed that there is no active Cardiac stress test order at this time. Dr. Reed acknowledged and ordered Lexiscan cardiac stress test today. Reminded Dr. Reed that yesterday's cardiac stress test was cancelled by Dr. Smiley due to elevated WBC and elevated troponin level. Patient today is still noted with elevated WBC of 24.1 and elevated troponin of 0.[address] Smiley again today is performing cardiac stress test. Dr. Reed acknowledged and ordered Lexican cardiac stress test tomorrow with nuclear med cardiac perfusion, CBC tomorrow morning, patient may go back on cardiac diet at this time. Orders entered, noted, and carried out. Will continue to monitor patient.
--- NOTE | 2019-06-26 11:13 | Diagnostic Imaging Report ---
Indication: 73-year-old chest pain Technique: The study was conducted under the supervision of a skin specialist. A resting study was performed with 11 mCi of technetium 99m myoview injected intravenously at that time. Three plane SPECT imaging of the heart was obtained. Stress portion of the examination was not performed and canceled by cardiology. Comparison: None Clinical data: None provided Findings: The myocardial perfusion scan performed at rest demonstrates an apparent perfusion defect involving the left ventricular apex and distal part of the inferior wall. Correlate clinically. Impression: Incomplete evaluation. Note: Estimation of LVEF on this examination is likely inaccurate. In our experience, the calculated LVEF is usually overestimated on this software program.
--- NOTE | 2019-06-26 11:53 | NUR ---
RD ASSESSMENT & RECOMMENDATIONS SEE CARE ACTIVITY FOR COMPLETE ASSESSMENT DAILY ESTIMATED NEEDS: Needs based on Obese, pulmonary, 78kg abw 20-25 kcals/kg 4667-0645 total kcals 1-1.5 g protein/kg 78-117 g total protein 20-30ml/kcal mL/kg 2960-2064 total fluid mLs NUTRITION DIAGNOSIS: Decreased fat needs r/t acute pancreatitis as evidenced by elevated lipase 533 -> 1000 back up, pt is obese class II. CURRENT DIET:Low Fat, soft easy chew/ NPO for stress test PO DIET RECOMMENDATIONS: LOW FAT, CCHO MED / texture per [employer] ADDITIONAL RECOMMENDATIONS: 1) Rec A1C for eval 2) Calibrated bed scale wts 3) Monitor PO tolerance -> lipase back up
[2019-06-26 12:00] VITALS: BP 128/62
--- NOTE | 2019-06-26 12:15 | General Progress Note ---
Assessment/Plan Problem List: (1) Acute kidney injury superimposed on CKD ICD Codes: N17.9 - Acute kidney failure, unspecified; N18.9 - Chronic kidney disease, unspecified SNOMED: 73353899, 573698572 (2) Sepsis ICD Codes: A41.9 - Sepsis, unspecified organism SNOMED: 30728592 Qualifiers: Qualified Codes: A41.9 - Sepsis, unspecified organism; R65.21 - Severe sepsis with septic shock; N17.9 - Acute kidney failure, unspecified (3) Elevated troponin ICD Codes: R79.89 - Other specified abnormal findings of blood chemistry SNOMED: 501800639, 563623825, 682325746 Status: stable Assessment/Plan: anemia esophagitis CM pancreatic pseudocyst CAD obesity on low fat diet patient will need EUS but given elevated trop will hold for now repeat CT reviewed abx per id fu cardiology ad nephrology repeat labs in am ppi start pancreolipase s/p stress test fu cardiology Subjective ROS Limited/Unobtainable: Yes Allergies: Coded Allergies: No Known Allergies (Unverified , 06/02/19) Objective Last 24 Hour Vital Signs Date Time Temp Pulse Resp B/P (MAP) Pulse Ox O2 Delivery O2 Flow Rate FiO2 06/26/19 09:00 Nasal Cannula 3.0 06/26/19 08:28 87 129/76 06/26/19 08:27 87 129/76 06/26/19 08:00 96.7 87 19 129/76 (93) 96 06/26/19 08:00 81 06/26/19 07:15 94 Nasal Cannula 3.0 32 06/26/19 07:15 86 18 94 Nasal Cannula 3.0 32 06/26/19 04:00 97.7 82 19 130/72 (91) 95 06/26/19 04:00 82 06/26/19 00:00 98.9 70 18 131/68 (89) 95 06/26/19 00:00 91 06/25/19 22:07 98.1 06/25/19 22:00 3.0 30 06/25/19 21:26 90 133/60 06/25/19 21:00 Nasal Cannula 3.0 06/25/19 20:00 101 06/25/19 20:00 99.0 90 18 133/60 (84) 95 06/25/19 20:00 95 Nasal Cannula 2.0 28 06/25/19 20:00 79 18 95 Nasal Cannula 2.0 32 06/25/19 16:00 110 06/25/19 16:00 98.1 110 20 128/63 (84) 91 110 Intake and Output 06/25/19 06/26/19 19:00 07:00 Intake Total 789.916 ml 27.5 ml Output Total 150 ml 320 ml Balance 639.916 ml -292.5 ml Intake Oral 240 ml IV Total 549.916 ml 27.5 ml Output Urine Total 150 ml 320 ml # Bowel Movements 1 2 Laboratory Tests 06/25/19 18:00: Urine Color Yellow, Urine Appearance Slightly cloudy, Urine pH 5, Urine Specific [place] 1.025, Urine Protein 3+H, Urine Glucose (UA) 1+H, Urine Ketones 1+H, Urine Blood 5+H, Urine Nitrite PositiveH, Urine Bilirubin 1+H, Urine Ictotest Negative, Urine Urobilinogen Normal, Urine Leukocyte Esterase 2+H , Urine RBC 30-40H, Urine WBC 15-20H, Urine Squamous Epithelial Cells None, Urine Amorphous Sediment ManyH, Urine Bacteria ManyH, Urine Granular Casts 0-2H 06/26/19 05:50: White Blood Count 24.1*H, Red Blood Count 4.00L, Hemoglobin 11.5L, Hematocrit 34.0L, Mean Corpuscular Volume 85, Mean Corpuscular Hemoglobin 28.8, Mean Corpuscular Hemoglobin Concent 33.8, Red Cell Distribution Width 12.9, Platelet Count 159, Mean Platelet Volume 8.7, Neutrophils (%) (Auto) , Lymphocytes (%) ( Auto) , Monocytes (%) (Auto) , Eosinophils (%) (Auto) , Basophils (%) (Auto) , Differential Total Cells Counted 100, Neutrophils % (Manual) 93H, Lymphocytes % (Manual) 4L, Monocytes % (Manual) 3, Eosinophils % (Manual) 0, Basophils % ( Manual) 0, Band Neutrophils 0, Platelet Estimate Adequate, Platelet Morphology Normal, Hypochromasia 1+, Sodium Level 137, Potassium Level 4.0, Chloride Level 107, Carbon Dioxide Level 19L, Anion Gap 11, Blood Urea Nitrogen 48H, Creatinine 2.5H, Estimat Glomerular Filtration Rate 25.4, Glucose Level 154H, Calcium Level 7.7L, Random Vancomycin Level 14.4 06/26/19 05:55: Troponin I 0.063H Height (Feet): 5 Height (Inches): 7.00 Weight (Pounds): 244 General Appearance: alert EENT: normal ENT inspection Neck: supple Cardiovascular: normal rate Respiratory/Chest: decreased breath sounds Abdomen: soft, hypoactive bowel sounds Extremities: non-tender Peyman Akbar MD Jun 26, 2019 12:15
[2019-06-26] MEDS: Sodium Bicarbonate 650mg Tab ORAL SCH ×2 (12:27→17:40)
--- NOTE | 2019-06-26 13:14 | Pulmonology Progress Note ---
Assessment/Plan Problems: (1) Sepsis (2) Hypoxia (3) Left upper quadrant abdominal mass (4) Thrombocytopenia Assessment & Plan: Recovered (5) Acute kidney injury superimposed on CKD Assessment/Plan Needs an outpatient PSG, should have an outpatient screening CT chest as well Titrate FiO2 PRN HHN's Monitor volumes and renal function ABx per ID, F/U Cx's F/U cards recs ? ischemia eval once acute issues resolve F/U GI recs, F/U CA-19-9, EUS/ERCP when able Monitor platelets, F/U HIT Ab panel Cautious PO with STRICT ASPIRATION precautions DVT Px: SCD's FC Subjective Allergies: Coded Allergies: No Known Allergies (Unverified , 06/02/19) Subjective AFVSS O2 needs stable WCT better Weak cough no SOB no FC no CP Objective Last 24 Hour Vital Signs Date Time Temp Pulse Resp B/P (MAP) Pulse Ox O2 Delivery O2 Flow Rate FiO2 06/26/19 12:00 96.6 76 20 128/62 (84) 98 06/26/19 12:00 80 06/26/19 09:00 Nasal Cannula 3.0 06/26/19 08:28 87 129/76 06/26/19 08:27 87 129/76 06/26/19 08:00 96.7 87 19 129/76 (93) 96 06/26/19 08:00 81 06/26/19 07:15 94 Nasal Cannula 3.0 32 06/26/19 07:15 86 18 94 Nasal Cannula 3.0 32 06/26/19 04:00 97.7 82 19 130/72 (91) 95 06/26/19 04:00 82 06/26/19 00:00 98.9 70 18 131/68 (89) 95 06/26/19 00:00 91 06/25/19 22:07 98.1 06/25/19 22:00 3.0 30 06/25/19 21:26 90 133/60 06/25/19 21:00 Nasal Cannula 3.0 06/25/19 20:00 101 06/25/19 20:00 99.0 90 18 133/60 (84) 95 06/25/19 20:00 95 Nasal Cannula 2.0 28 06/25/19 20:00 79 18 95 Nasal Cannula 2.0 32 3/4/20 16:00 110 06/25/19 16:00 98.1 110 20 128/63 (84) 91 110 Intake and Output 06/25/19 06/26/19 19:00 07:00 Intake Total 789.916 ml 27.5 ml Output Total 150 ml 320 ml Balance 639.916 ml -292.5 ml Intake Oral 240 ml IV Total 549.916 ml 27.5 ml Output Urine Total 150 ml 320 ml # Bowel Movements 1 2 Objective Ob M General Appearance: no acute distress, other - Ob M HEENT: normocephalic, atraumatic, anicteric, mucous membranes moist Respiratory/Chest: chest wall non-tender, lungs clear, normal breath sounds, no respiratory distress, no accessory muscle use Cardiovascular: normal peripheral pulses, normal rate, regular rhythm Abdomen: normal bowel sounds, soft, non tender, no organomegaly, non distended , no mass Extremities: no cyanosis, no clubbing, no edema Microbiology Date/Time Source Procedure Growth Status 06/25/19 18:00 Indwelling Cath Urine Culture - Preliminary NO GROWTH Resulted Laboratory Tests 06/25/19 18:00: Urine Color Yellow, Urine Appearance Slightly cloudy, Urine pH 5, Urine Specific [place] 1.025, Urine Protein 3+H, Urine Glucose (UA) 1+H, Urine Ketones 1+H, Urine Blood 5+H, Urine Nitrite PositiveH, Urine Bilirubin 1+H, Urine Ictotest Negative, Urine Urobilinogen Normal, Urine Leukocyte Esterase 2+H , Urine RBC 30-40H, Urine WBC 15-20H, Urine Squamous Epithelial Cells None, Urine Amorphous Sediment ManyH, Urine Bacteria ManyH, Urine Granular Casts 0-2H 06/26/19 05:50: White Blood Count 24.1*H, Red Blood Count 4.00L, Hemoglobin 11.5L, Hematocrit 34.0L, Mean Corpuscular Volume 85, Mean Corpuscular Hemoglobin 28.8, Mean Corpuscular Hemoglobin Concent 33.8, Red Cell Distribution Width 12.9, Platelet Count 159, Mean Platelet Volume 8.7, Neutrophils (%) (Auto) , Lymphocytes (%) ( Auto) , Monocytes (%) (Auto) , Eosinophils (%) (Auto) , Basophils (%) (Auto) , Differential Total Cells Counted 100, Neutrophils % (Manual) 93H, Lymphocytes % (Manual) 4L, Monocytes % (Manual) 3, Eosinophils % (Manual) 0, Basophils % ( Manual) 0, Band Neutrophils 0, Platelet Estimate Adequate, Platelet Morphology Normal, Hypochromasia 1+, Sodium Level 137, Potassium Level 4.0, Chloride Level 107, Carbon Dioxide Level 19L, Anion Gap 11, Blood Urea Nitrogen 48H, Creatinine 2.5H, Estimat Glomerular Filtration Rate 25.4, Glucose Level 154H, Calcium Level 7.7L, Random Vancomycin Level 14.4 06/26/19 05:55: Troponin I 0.063H Current Medications Medications (Trade) Dose Ordered Sig/Arley Route PRN Reason Start Time Stop Time Status Last Admin Dose Admin Acetaminophen (Tylenol) 650 mg Q4H PRN ORAL Mild Pain (Pain Scale 1-3) 06/24/19 19:00 07/15/19 18:59 06/25/19 21:34 Albumin Human 50 ml @ 50 mls/hr DAILYPRN PRN IV For hypotension 06/25/19 09:00 07/25/19 08:59 Amlodipine Besylate (Norvasc) 5 mg DAILY ORAL 06/25/19 09:00 07/24/19 08:59 06/26/19 08:28 Amylase/Lipase/ Protease (Zenpep) 3 ea THREE TIMES A DAY ORAL 06/26/19 14:00 07/26/19 13:59 Aspirin (ASA) 81 mg DAILY ORAL 06/25/19 09:00 07/20/19 08:59 06/26/19 08:28 Barium Sulfate (Readi-Cat 2) 450 ml NOW PRN ORAL Radiology Procedure 06/25/19 16:00 06/27/19 15:59 Bisacodyl (Dulcolax) 10 mg DAILYPRN PRN RECTAL Constipation 06/24/19 19:00 07/24/19 18:59 Chlorhexidine Gluconate (Mena-Hex 2%) 1 applic DAILY@2000 TOPIC 06/24/19 20:00 07/16/19 19:59 06/25/19 21:27 Dextrose (Dextrose 50%) 25 ml Q30M PRN IV Hypoglycemia 06/24/19 18:45 07/16/19 18:05 Dextrose (Dextrose 50%) 50 ml Q30M PRN IV Hypoglycemia 06/24/19 18:45 07/16/19 18:05 Insulin Aspart (NovoLOG) AC+HS SUBQ 06/24/19 21:00 07/20/19 17:59 06/26/19 06:04 Magnesium Hydroxide (Mom) 30 ml HSPRN PRN ORAL Constipation 06/24/19 21:00 07/15/19 20:59 Metoprolol Tartrate (Lopressor) 25 mg Q12HR ORAL 06/24/19 21:00 07/20/19 08:59 06/26/19 08:27 Ondansetron HCl (Zofran) 4 mg Q6H PRN IVP Nausea & Vomiting 06/24/19 19:00 07/24/19 18:59 Pantoprazole (Protonix) 40 mg DAILY IVP 06/25/19 09:00 07/16/19 08:59 06/26/19 08:28 Piperacillin Sod/ Tazobactam Sod 3.375 gm/Sodium Chloride 110 ml @ 27.5 mls/hr EVERY 8 HOURS IVPB 06/25/19 14:00 06/30/19 13:59 06/26/19 05:54 Regadenoson (Lexiscan) 0.4 mg ONCE PRN IV stress test 06/24/19 18:45 06/26/19 18:44 Regadenoson (Lexiscan) 0.4 mg ONCE PRN IV STRESS TEST 06/27/19 09:00 06/28/19 08:59 Sodium Bicarbonate (NaHCO3) 650 mg THREE TIMES A DAY ORAL 06/26/19 13:00 07/26/19 12:59 Sodium Chloride 1,000 ml @ 75 mls/hr [id number] IV 06/26/19 11:00 07/26/19 10:59 06/26/19 10:38 Vancomycin HCl (Vanco rx to dose) 1 ea DAILY PRN MISC . 06/25/19 10:00 07/25/19 09:59 Homero Moran MD Jun 26, 2019 13:14
--- NOTE | 2019-06-26 14:00 | NUR ---
NURSE NOTES: Pt went down to CT.
[2019-06-26] MEDS: Pancrelipase Dr Cap ORAL SCH ×2 (15:01→17:40)
--- NOTE | 2019-06-26 15:09 | Diagnostic Imaging Report ---
INDICATION: Abdominal pain TECHNIQUE: Continuous helical transaxial imaging of the abdomen and pelvis was obtained from the lung bases to the pubic symphysis. No intravenous contrast was administered. Coronal 2-D reformats were also obtained. Automatic Exposure Control was utilized. Total Dose length Product (DLP): 1152.[address] Dose Index Volume (CTDIvol): 19.8 mGy Comparison: Noncontrast CT abdomen 06/20/2019, 06/15/2019 FINDINGS: Lungs: Small posterior basilar pleural effusions are demonstrated. Consolidation versus atelectasis involving the lung bases bilaterally. Similar appearance on the prior occasion.. Liver: Unremarkable Gallbladder/biliary system: Gallbladder is absent. No biliary ductal dilatation seen.. Spleen: Unremarkable Pancreas: Pancreas is atrophic. Once again there is a large approximately 10 cm well-circumscribed cystic mass in the left upper quadrant associated with the tail the pancreas. This has been previously described and was seen on the last 2 CT examinations. This cyst is questionably slightly smaller. There is however moderately increased soft tissue stranding in the area surrounding the cyst anteriorly indicative of inflammation. In addition part of the splenic flexure which abuts the cyst and traverses the area of inflammation shows focal dilatation likely a localized inflammatory response or localized ileus. The degree of inflammation has significantly increased and is worse than both the prior occasions on 06/20/2019 or on 06/15/2019. In addition the degree of anasarca has increased. There is a small amount of free fluid within the abdomen which has also increased slightly since the last study. Kidneys/Bladder: No definite stone or hydronephrosis are identified. There is a probable right renal cyst again noted. The urinary bladder is nondistended. Rivero catheter in good position. Adrenal glands: Unremarkable Bowel: Unremarkable. Aorta/IVC: Aortoiliac calcifications are noted consistent with atherosclerotic disease. Peritoneum: There is mild free fluid present within the peritoneal cavity.. Bones: There is narrowing of intervertebral discs and accompanying endplate osteophyte formation. Hypertrophied facet joints also demonstrated. Generalized osteopenia noted. Moderate osteoarthritis of both hips demonstrated. IMPRESSION: Moderate increased inflammation surrounding a 10 cm cystic mass in the left upper quadrant. The cystic mass may be slightly smaller than on the previous CT examinations performed 06/20/2019 and 06/15/2019. 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 Cystic neoplasm is not excluded. Persistent small bilateral pleural effusions and underlying consolidation/atelectasis. Trace ascites. Worsening anasarca. Status post cholecystectomy. Arterial vascular disease. Note: Evaluation of solid organs is limited on non contrast imaging. The CT scanner at [facility] is accredited by the [employer] and the scans are performed using dose optimization techniques as appropriate to a performed exam including Automatic Exposure control.
[2019-06-26 16:00] VITALS: BP 131/62
--- NOTE | 2019-06-26 16:18 | NUR ---
OXYGEN TITRATION PATIENT IS CURRENTLY SATURATING 98% ON 3L/NC OXYGEN TITRATION DISCUSSED WITH GANGA TURNER
--- NOTE | 2019-06-26 16:30 | NUR ---
NURSE NOTES: Called and informed Dr. Mallory regarding new wound noted on sacral. Dr. Mallory acknowledged and ordered wound care nurse and doctor consult. Sacral wound dressed with cavillon skin barrier and optifoam. Order entered, noted, and carried out. Will continue to monitor patient.
--- NOTE | 2019-06-26 18:15 | Infectious Diseases Prog Note ---
Assessment/Plan Assessment/Plan 1. hx klebsiella bacteremia, sepsis, worsening leukocytosis, ? infected pancreatic pseudocyst, ? aspiration pna/HCAP vs atx, arf, CT abdomen and pelvis noted - zosyn and zyvox, avoid nephrotoxic antibiotics - f/u on blood cultures, urine culture neg, chest x-ray with atx - monitor labs - CT abdomen - 06/26/19 noted - slt decrease in pseudocyst, atx vs consolidation, effusion - d/w Dr. Mota - consider indium scan 2. Shock - improved, off pressors 3. Shortness of breath, hypoxia, on BiPAP - improved, off pressors 4. Pulmonary followup. 5. Acute renal failure. 6. Anemia. 7. Diabetes. 8. Hypertension. 9. Blood sugar and blood pressure treatment per primary care team. 10. Possible CVA history. 11. No known drug allergies. 12. Social history is negative. 13. Family history is noncontributory. 14. MAR was noted. 15. Case discussed with RN. 16. Continue treatment per primary consultants. 17. ICU care. 18. Skin care protocol. 19. Orders were noted and entered. 20. GI followup. Subjective Constitutional: Reports: fatigue, other - alert and responsive ; Denies: fever HEENT: Denies: congestion Respiratory: Denies: shortness of breath Breasts: Reports: swelling Cardiovascular: Denies: chest pain Gastrointestinal/Abdominal: Denies: nausea, vomiting, diarrhea Genitourinary: Reports: other - + contreras Neurologic: Denies: headache Psychiatric: Denies: depression Skin: Denies: rash Hematologic: Denies: bleeding Musculoskeletal: Denies: pain Allergies: Coded Allergies: No Known Allergies (Unverified , 06/02/19) Objective Vital Signs Last 24 Hour Vital Signs Date Time Temp Pulse Resp B/P (MAP) Pulse Ox O2 Delivery O2 Flow Rate FiO2 06/26/19 16:00 83 06/26/19 16:00 98.1 81 19 131/62 (85) 98 06/26/19 12:00 96.6 76 20 128/62 (84) 98 06/26/19 12:00 80 06/26/19 09:00 Nasal Cannula 3.0 06/26/19 08:28 87 129/76 06/26/19 08:27 87 129/76 06/26/19 08:00 96.7 87 19 129/76 (93) 96 06/26/19 08:00 81 06/26/19 07:15 94 Nasal Cannula 3.0 32 06/26/19 07:15 86 18 94 Nasal Cannula 3.0 32 06/26/19 04:00 97.7 82 19 130/72 (91) 95 06/26/19 04:00 82 06/26/19 00:00 98.9 70 18 131/68 (89) 95 06/26/19 00:00 91 06/25/19 22:07 98.1 06/25/19 22:00 3.0 30 06/25/19 21:26 90 133/60 06/25/19 21:00 Nasal Cannula 3.0 06/25/19 20:00 101 06/25/19 20:00 99.0 90 18 133/60 (84) 95 06/25/19 20:00 95 Nasal Cannula 2.0 28 06/25/19 20:00 79 18 95 Nasal Cannula 2.0 32 Height (Feet): 5 Height (Inches): 7.00 Weight (Pounds): 244 General Appearance: no acute distress HEENT: normocephalic, atraumatic, anicteric, mucous membranes moist Respiratory/Chest: lungs clear, normal breath sounds, no respiratory distress, no accessory muscle use Cardiovascular: normal rate, regular rhythm, no gallop/murmur, no JVD Abdomen: normal bowel sounds, soft, non tender, no organomegaly, non distended Genitourinary: other - no contreras Extremities: no cyanosis Skin: no rash Neurologic/Psychiatric: fitter up II-XII grossly normal, alert, oriented x 3, responsive Lymphatic: no neck adenopathy Musculoskeletal: no effusion Objective Chest x-ray - 06/17/19 - Procedure: XRAY Chest 1v Indication: Dyspnea Comparison: 06/15/2019 A single view chest radiograph was obtained. Findings: Pulmonary vascular interstitial prominence demonstrated with cardiomegaly. There is a left-sided PICC line with the tip projected over the SVC. Old right clavicle fracture noted. IMPRESSION: Mild CHF CT abdomen and pelvis - 06/15/19 - Impression: Unilocular left upper quadrant cystic mass adjacent to the tail of pancreas and the greater curvature of the stomach. Favor pancreatic pseudocyst, particularly in view of evidence of pancreatic atrophy. However, cystic neoplasm of pancreatic, gastric, or other origin also possible. Consider contrast MRI for better characterization Small ventral hernia containing a single small loop of small bowel, no definite obstruction or strangulation related to such Mildly distended proximal small bowel with slow forward transit of ingested contrast. Suspect ileus or enteritis, although early/partial small bowel obstruction also possible. Correlate with clinical findings Mild distal soft tissue wall thickening, esophagitis possible. Correlate with clinical findings Bilateral basilar pulmonary parenchymal infiltrates versus edema, fairly extensive Cardiomegaly. Apparent bladder wall thickening. Probably an artifact of lack of distention, but cystitis also possible Nonspecific bilateral perinephric fat stranding. Suspect chronic although acute renal inflammation also possible Chest x-ray - 06/20/19 - Procedure: XRAY Chest 1v Indication: Cough Technique: One view of the chest Comparison: 06/19/2019 Findings: Right mid and lower lung infiltrates, generalized interstitial congestion persists, unchanged. Cardiomegaly again demonstrated. Impression: Unchanged, over one day, findings as above. CT abdomen and pelvis - 06/20/19 - Impression: Left upper quadrant cystic mass adjacent to the pancreatic tail and greater curvature the stomach, also reported previously, equivocally slightly larger currently. As previously described, most likely a pancreatic pseudocyst. Cystic pancreatic neoplasm also possible Trace ascites. This is a new finding since the prior exam. Bilateral pleural effusions and bilateral pulmonary parenchymal compressive atelectasis. Likewise a new finding since previous study Nonspecific bilateral perinephric fat stranding, also previously reported Bilateral basilar pulmonary interstitial and airspace edema Generalized edema of the subcutaneous fat Portable cardiomegaly Empty bladder with a Contreras catheter Degenerative spondylosis Chest x-ray - 06/24/19- Comparison: 06/12/2019 A single view chest radiograph was obtained. Findings: No definite infiltrate or pulmonary vascular congestion identified. The heart is enlarged. The aorta is mildly enlarged consistent with atherosclerotic vascular disease. The bones are osteopenic. There are thoracic vertebral enthesophytes at multiple levels. Impression: No acute disease 06/26/19 - CT scan of abdomen and pelvis: IMPRESSION: Moderate increased inflammation surrounding a 10 cm cystic mass in the left upper quadrant. The cystic mass may be slightly smaller than on the previous CT examinations performed 06/20/2019 and 06/15/2019. 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 Cystic neoplasm is not excluded. Persistent small bilateral pleural effusions and underlying consolidation/atelectasis. Trace ascites. Worsening anasarca. Status post cholecystectomy. Arterial vascular disease. Chest x-ray - 06/25/19 - Procedure: XRAY Chest 1v Indication: Dyspnea Comparison: 06/23/2019 A single view chest radiograph was obtained. Findings: Interstitial is mildly prominent but findings appear stable. There is suspected mild atelectasis right lung base. Please correlate clinically. Similar findings seen previously. The heart is enlarged. IMPRESSION: Mild right basal atelectasis. No change otherwise. Microbiology Date/Time Source Procedure Growth Status 06/22/19 16:26 Blood Blood Culture - Preliminary NO GROWTH AFTER 72 HOURS Resulted 06/17/19 10:00 Sputum Induced Gram Stain - Final Complete 06/17/19 10:00 Sputum Induced Sputum Culture - Final NO GROWTH AFTER 48 HOURS Complete 06/19/19 10:20 Stool Stool Culture - Final NO SALMONELLA,SHIGELLA,OR CAMPYLOBACT... Complete 06/25/19 18:00 Indwelling Cath Urine Culture - Preliminary NO GROWTH Resulted 06/22/19 21:00 Arm Left Catheter Tip Culture - Preliminary NO GROWTH AFTER 72 HOURS Resulted Microbiology Date/Time Source Procedure Growth Status 06/25/19 18:00 Indwelling Cath Urine Culture - Preliminary NO GROWTH Resulted Laboratory Tests Test 06/25/19 18:00 06/26/19 05:50 06/26/19 05:55 Urine Color Yellow Urine Appearance Slightly cloudy Urine pH 5 (4.5-8.0) Urine Specific [place] 1.025 (1.005-1.035) Urine Protein 3+ (NEGATIVE) H Urine Glucose (UA) 1+ (NEGATIVE) H Urine Ketones 1+ (NEGATIVE) H Urine Blood 5+ (NEGATIVE) H Urine Nitrite Positive (NEGATIVE) H Urine Bilirubin 1+ (NEGATIVE) H Urine Ictotest Negative (NEGATIVE) Urine Urobilinogen Normal MG/DL (0.0-1.0) Urine Leukocyte Esterase 2+ (NEGATIVE) H Urine RBC 30-40 /HPF (0 - 0) H Urine WBC 15-20 /HPF (0 - 0) H Urine Squamous Epithelial Cells None /LPF (NONE/OCC) Urine Amorphous Sediment Many /LPF (NONE) H Urine Bacteria Many /HPF (NONE) H Urine Granular Casts 0-2 /LPF (NONE) H White Blood Count 24.1 K/UL (4.8-10.8) *H Red Blood Count 4.00 M/UL (4.70-6.10) L Hemoglobin 11.5 G/DL (14.2-18.0) L Hematocrit 34.0 % (42.0-52.0) L Mean Corpuscular Volume 85 FL (80-99) Mean Corpuscular Hemoglobin 28.8 PG (27.0-31.0) Mean Corpuscular Hemoglobin Concent 33.8 G/DL (32.0-36.0) Red Cell Distribution Width 12.9 % (11.6-14.8) Platelet Count 159 K/UL (150-450) Mean Platelet Volume 8.7 FL (6.5-10.1) Neutrophils (%) (Auto) % (45.0-75.0) Lymphocytes (%) (Auto) % (20.0-45.0) Monocytes (%) (Auto) % (1.0-10.0) Eosinophils (%) (Auto) % (0.0-3.0) Basophils (%) (Auto) % (0.0-2.0) Differential Total Cells Counted 100 Neutrophils % (Manual) 93 % (45-75) H Lymphocytes % (Manual) 4 % (20-45) L Monocytes % (Manual) 3 % (1-10) Eosinophils % (Manual) 0 % (0-3) Basophils % (Manual) 0 % (0-2) Band Neutrophils 0 % (0-8) Platelet Estimate Adequate Platelet Morphology Normal Hypochromasia 1+ Sodium Level 137 MMOL/L (136-145) Potassium Level 4.0 MMOL/L (3.5-5.1) Chloride Level 107 MMOL/L (98-107) Carbon Dioxide Level 19 MMOL/L (21-32) L Anion Gap 11 mmol/L (5-15) Blood Urea Nitrogen 48 mg/dL (7-18) H Creatinine 2.5 MG/DL (0.55-1.30) H Estimat Glomerular Filtration Rate 25.4 mL/min (>60) Glucose Level 154 MG/DL (74-106) H Calcium Level 7.7 MG/DL (8.5-10.1) L Random Vancomycin Level 14.4 ug/mL Troponin I 0.063 ng/mL (0.000-0.056) Current Medications Medications (Trade) Dose Ordered Sig/Arley Route PRN Reason Start Time Stop Time Status Last Admin Dose Admin Acetaminophen (Tylenol) 650 mg Q4H PRN ORAL Mild Pain (Pain Scale 1-3) 06/24/19 19:00 07/15/19 18:59 06/25/19 21:34 Albumin Human 50 ml @ 50 mls/hr DAILYPRN PRN IV For hypotension 06/25/19 09:00 07/25/19 08:59 Amlodipine Besylate (Norvasc) 5 mg DAILY ORAL 06/25/19 09:00 07/24/19 08:59 06/26/19 08:28 Amylase/Lipase/ Protease (Zenpep) 3 ea THREE TIMES A DAY ORAL 06/26/19 14:00 07/26/19 13:59 06/26/19 17:40 Aspirin (ASA) 81 mg DAILY ORAL 06/25/19 09:00 07/20/19 08:59 06/26/19 08:28 Barium Sulfate (Readi-Cat 2) 450 ml NOW PRN ORAL Radiology Procedure 06/25/19 16:00 06/27/19 15:59 Bisacodyl (Dulcolax) 10 mg DAILYPRN PRN RECTAL Constipation 06/24/19 19:00 07/24/19 18:59 Chlorhexidine Gluconate (Mena-Hex 2%) 1 applic DAILY@2000 TOPIC 06/24/19 20:00 07/16/19 19:59 06/25/19 21:27 Dextrose (Dextrose 50%) 25 ml Q30M PRN IV Hypoglycemia 06/24/19 18:45 07/16/19 18:05 Dextrose (Dextrose 50%) 50 ml Q30M PRN IV Hypoglycemia 06/24/19 18:45 07/16/19 18:05 Insulin Aspart (NovoLOG) AC+HS SUBQ 06/24/19 21:00 07/20/19 17:59 06/26/19 17:39 Magnesium Hydroxide (Mom) 30 ml HSPRN PRN ORAL Constipation 06/24/19 21:00 07/15/19 20:59 Metoprolol Tartrate (Lopressor) 25 mg Q12HR ORAL 06/24/19 21:00 07/20/19 08:59 06/26/19 08:27 Ondansetron HCl (Zofran) 4 mg Q6H PRN IVP Nausea & Vomiting 06/24/19 19:00 07/24/19 18:59 Pantoprazole (Protonix) 40 mg DAILY IVP 06/25/19 09:00 07/16/19 08:59 06/26/19 08:28 Piperacillin Sod/ Tazobactam Sod 3.375 gm/Sodium Chloride 110 ml @ 27.5 mls/hr EVERY 8 HOURS IVPB 06/25/19 14:00 06/30/19 13:59 06/26/19 15:01 Regadenoson (Lexiscan) 0.4 mg ONCE PRN IV stress test 06/24/19 18:45 06/26/19 18:44 Regadenoson (Lexiscan) 0.4 mg ONCE PRN IV STRESS TEST 06/27/19 09:00 06/28/19 08:59 Sodium Bicarbonate (NaHCO3) 650 mg THREE TIMES A DAY ORAL 06/26/19 13:00 07/26/19 12:59 06/26/19 17:40 Sodium Chloride 1,000 ml @ 75 mls/hr [id number] IV 06/26/19 11:00 07/26/19 10:59 06/26/19 10:38 Vancomycin HCl (Vanco rx to dose) 1 ea DAILY PRN MISC . 06/25/19 10:00 07/25/19 09:59 Pranay Waller MD Jun 26, 2019 18:15
--- NOTE | 2019-06-26 19:26 | NUR ---
HAND-OFF: Report given to GANGA Trejo.
--- NOTE | 2019-06-26 19:27 | NUR ---
NURSE NOTES: Got report from Ramírez SCHULER. Pt in stable condition. Denies any pain. No s/s of distress or discomfort noted. Pt resting in bed comfortably. Bed in low and locked position, call light within reach, bedside table within reach. Continue to monitor.
[2019-06-26 20:00] VITALS: BP 116/64
[2019-06-26] MEDS: Dyna-Hex 2% Top Sol 2oz TOPIC SCH (20:00)
[2019-06-27] VITALS: BP 130/56
[2019-06-27 04:00] VITALS: BP 124/65
[2019-06-27 05:48] LABS: HEMATOCRIT 29.4 % (42.0-52.0); HEMOGLOBIN 10.1 G/DL (14.2-18.0); MEAN CORPUSCULAR VOLUME 85 FL (80-99); PLATELET COUNT 152 K/UL (150-450); RED BLOOD COUNT 3.45 M/UL (4.70-6.10); WHITE BLOOD COUNT 20.9 K/UL (4.8-10.8)
--- NOTE | 2019-06-27 05:55 | Hematology/Onc Progress Note ---
Assessment/Plan Assessment/Plan Assessment and recs: # Thrombocytopenia - potential causes multifactorial, in this case due to sepsis , less likely due to heparin --> Hep panel and HIV are negative --> US abd to evaluate for cirrhosis and hsm ordered and none noted --> Peripheral smear ordered to evaluate for blasts /schistocytes --> abx and other meds have been reviewed --> ok for ppx if plt >50k w/ either heparin or lovenox --> Transfuse if Plt < 20k and fever, or if Plt < 10k without fever --> plt trend 41-->49k-->63k-->110 # Leukocytosis with hx of infection --> on vanc/zosyn -> ct a/p reviewed --> wbc 15-->30-->24 --> pending source eval per id # 10.7 cm unilocular cystic structure in the left upper quadrant retroperitoneal , corresponding to findings reported on recent CT scan. Most likely represents a pancreatic pseudocyst. --> continue to monitor as per gi --> repeat us or ct in short order, weeks to months to re-eval --> repeat ct showed mild enlargement of cyst/mass, will need further repeat imaging --> may need indium scan # DM, ? history of CVA who presented to [facility] ED with nausea,vomiting. --> a1c goal <8, accuchecks qac/qhs # Septic shock, POA, possible biliary source --> cont ICU level of care --> cont IV hydration --> on abx, as per pulm/cc # Acute hypoxic resp failure without hypercarbia --> Intermittent BiPAP --> continue inhaled bronchodilators # NSTEMI, peak trop of 2, likely due to demand ischemia --> Stop heparin due to thrombocytopenia --> duplex lower legs is neg --> HIT neg --> per cards # Acute kidney injury on CKD, possible ATN --> Nephrology following # Acute pancreatitis --> hydration # HTN --> cont to hold BP meds # DM type 2 --> ISS # Dvt ppx scds Appreciate consultation and sydney Rn Subjective HEENT: Denies: no symptoms, eye pain, blurred vision, tearing, double vision, ear pain, ear discharge, nose pain, nose congestion, throat pain, throat swelling, mouth pain, mouth swelling, other Respiratory: Denies: no symptoms, cough, shortness of breath, SOB with excertion, SOB at rest, sputum, wheezing, other Gastrointestinal/Abdominal: Denies: no symptoms, abdomen distended, abdominal pain, black stools, tarry stools, blood in stool, constipated, diarrhea, difficulty swallowing, nausea, poor appetite, poor fluid intake, rectal bleeding , vomiting, other Genitourinary: Denies: no symptoms, burning, discharge, frequency, flank pain, hematuria, incontinence, pain, urgency, other Neurologic/Psychiatric: Denies: no symptoms, anxiety, depressed, emotional problems, headache, numbness, paresthesia, pre-existing deficit, seizure, tingling, tremors, weakness, other Endocrine: Denies: no symptoms, excessive sweating, flushing, intolerance to cold, intolerance to heat, increased hunger, increased thirst, increased urine, unexplained weight gain, unexplained weight loss, other Hematologic/Lymphatic: Denies: no symptoms, anemia, easy bleeding, easy bruising, adenopathy, other Allergies: Coded Allergies: No Known Allergies (Unverified , 06/02/19) Subjective 06/20: awake and alert, no overnight events, v mask 06/22: plts remain low, in the 40s, off anticaog, sydney rn, pending labs 06/23: is on broad spectrum abx, fluncon, ctx, flagyl, vanc, no f/c 06/24: on tele, no overnight events, wbc at 29.8, plt count improved 06/25: ct a/p is still pending given elev wbc, off pressors in tele 06/26: wbc continues to be elev, ct a/p reviewed, potentially smaller pseudocyst, may need indium scan Objective Objective Current Medications Medications (Trade) Dose Ordered Sig/Arley Route PRN Reason Start Time Stop Time Status Last Admin Dose Admin Acetaminophen (Tylenol) 650 mg Q4H PRN ORAL Mild Pain (Pain Scale 1-3) 06/24/19 19:00 07/15/19 18:59 06/25/19 21:34 Albumin Human 50 ml @ 50 mls/hr DAILYPRN PRN IV For hypotension 06/25/19 09:00 07/25/19 08:59 Amlodipine Besylate (Norvasc) 5 mg DAILY ORAL 06/25/19 09:00 07/24/19 08:59 06/26/19 08:28 Amylase/Lipase/ Protease (Zenpep) 3 ea THREE TIMES A DAY ORAL 06/26/19 14:00 07/26/19 13:59 06/26/19 17:40 Aspirin (ASA) 81 mg DAILY ORAL 06/25/19 09:00 07/20/19 08:59 06/26/19 08:28 Barium Sulfate (Readi-Cat 2) 450 ml NOW PRN ORAL Radiology Procedure 06/25/19 16:00 06/27/19 15:59 Bisacodyl (Dulcolax) 10 mg DAILYPRN PRN RECTAL Constipation 06/24/19 19:00 07/24/19 18:59 Chlorhexidine Gluconate (Mena-Hex 2%) 1 applic DAILY@2000 TOPIC 06/24/19 20:00 07/16/19 19:59 06/25/19 21:27 Dextrose (Dextrose 50%) 25 ml Q30M PRN IV Hypoglycemia 06/24/19 18:45 07/16/19 18:05 Dextrose (Dextrose 50%) 50 ml Q30M PRN IV Hypoglycemia 06/24/19 18:45 07/16/19 18:05 Insulin Aspart (NovoLOG) AC+HS SUBQ 06/24/19 21:00 07/20/19 17:59 06/26/19 17:39 Linezolid 300 ml @ 300 mls/hr EVERY 12 HOURS IVPB 06/26/19 21:00 07/03/19 20:59 06/26/19 21:27 Magnesium Hydroxide (Mom) 30 ml HSPRN PRN ORAL Constipation 06/24/19 21:00 07/15/19 20:59 Metoprolol Tartrate (Lopressor) 25 mg Q12HR ORAL 06/24/19 21:00 07/20/19 08:59 06/26/19 21:27 Ondansetron HCl (Zofran) 4 mg Q6H PRN IVP Nausea & Vomiting 06/24/19 19:00 07/24/19 18:59 Pantoprazole (Protonix) 40 mg DAILY IVP 06/25/19 09:00 07/16/19 08:59 06/26/19 08:28 Piperacillin Sod/ Tazobactam Sod 3.375 gm/Sodium Chloride 110 ml @ 27.5 mls/hr EVERY 8 HOURS IVPB 06/25/19 14:00 06/30/19 13:59 06/26/19 22:00 Regadenoson (Lexiscan) 0.4 mg ONCE PRN IV STRESS TEST 06/27/19 09:00 06/28/19 08:59 Sodium Bicarbonate (NaHCO3) 650 mg THREE TIMES A DAY ORAL 06/26/19 13:00 07/26/19 12:59 06/26/19 17:40 Sodium Chloride 1,000 ml @ 75 mls/hr [id number] IV 06/26/19 11:00 07/26/19 10:59 06/27/19 00:15 Last 24 Hour Vital Signs Date Time Temp Pulse Resp B/P (MAP) Pulse Ox O2 Delivery O2 Flow Rate FiO2 06/27/19 04:00 97.0 73 18 124/65 (84) 98 06/27/19 04:00 74 06/27/19 00:00 78 06/27/19 00:00 98.2 77 18 130/56 (80) 96 06/26/19 22:00 3.0 30 06/26/19 21:27 80 116/64 06/26/19 21:00 Nasal Cannula 3.0 06/26/19 20:00 79 06/26/19 20:00 97.7 80 18 116/64 (81) 95 06/26/19 19:35 83 18 95 Nasal Cannula 3.0 32 06/26/19 19:35 95 Nasal Cannula 3.0 32 06/26/19 16:00 83 06/26/19 16:00 98.1 81 19 131/62 (85) 98 06/26/19 12:00 96.6 76 20 128/62 (84) 98 06/26/19 12:00 80 06/26/19 09:00 Nasal Cannula 3.0 06/26/19 08:28 87 129/76 06/26/19 08:27 87 129/76 06/26/19 08:00 96.7 87 19 129/76 (93) 96 06/26/19 08:00 81 06/26/19 07:15 94 Nasal Cannula 3.0 32 06/26/19 07:15 86 18 94 Nasal Cannula 3.0 32 06/26/19 04:00 97.7 82 19 130/72 (91) 95 06/26/19 04:00 82 06/26/19 00:00 98.9 70 18 131/68 (89) 95 06/26/19 00:00 91 06/25/19 22:07 98.1 06/25/19 22:00 3.0 30 06/25/19 21:26 90 133/60 06/25/19 21:00 Nasal Cannula 3.0 06/25/19 20:00 101 06/25/19 20:00 99.0 90 18 133/60 (84) 95 06/25/19 20:00 95 Nasal Cannula 2.0 28 06/25/19 20:00 79 18 95 Nasal Cannula 2.0 32 06/25/19 16:00 110 06/25/19 16:00 98.1 110 20 128/63 (84) 91 110 06/25/19 12:00 98.1 107 19 104/62 (76) 93 107 06/25/19 12:00 108 06/25/19 09:00 Nasal Cannula 3.0 06/25/19 09:00 106 127/70 06/25/19 09:00 106 127/70 06/25/19 08:25 81 18 94 Nasal Cannula 2.0 32 06/25/19 08:20 94 Nasal Cannula 2.0 28 06/25/19 08:00 108 06/25/19 08:00 98.1 106 20 127/70 (89) 93 106 Intake and Output 06/26/19 06/27/19 19:00 07:00 Intake Total 240 ml Output Total 800 ml Balance -560 ml Intake Oral 240 ml Output Urine Total 800 ml # Bowel Movements 2 1 Labs Test 06/25/19 05:40 06/25/19 18:00 06/26/19 05:50 06/26/19 05:55 White Blood Count 29.8 K/UL (4.8-10.8) 24.1 K/UL (4.8-10.8) Red Blood Count 4.94 M/UL (4.70-6.10) 4.00 M/UL (4.70-6.10) Hemoglobin 14.1 G/DL (14.2-18.0) 11.5 G/DL (14.2-18.0) Hematocrit 42.6 % (42.0-52.0) 34.0 % (42.0-52.0) Mean Corpuscular Volume 86 FL (80-99) 85 FL (80-99) Mean Corpuscular Hemoglobin 28.6 PG (27.0-31.0) 28.8 PG (27.0-31.0) Mean Corpuscular Hemoglobin Concent 33.2 G/DL (32.0-36.0) 33.8 G/DL (32.0-36.0) Red Cell Distribution Width 12.8 % (11.6-14.8) 12.9 % (11.6-14.8) Platelet Count 110 K/UL (150-450) 159 K/UL (150-450) Mean Platelet Volume 9.8 FL (6.5-10.1) 8.7 FL (6.5-10.1) Neutrophils (%) (Auto) % (45.0-75.0) % (45.0-75.0) Lymphocytes (%) (Auto) % (20.0-45.0) % (20.0-45.0) Monocytes (%) (Auto) % (1.0-10.0) % (1.0-10.0) Eosinophils (%) (Auto) % (0.0-3.0) % (0.0-3.0) Basophils (%) (Auto) % (0.0-2.0) % (0.0-2.0) Differential Total Cells Counted 100 100 Neutrophils % (Manual) 93 % (45-75) 93 % (45-75) Lymphocytes % (Manual) 5 % (20-45) 4 % (20-45) Monocytes % (Manual) 2 % (1-10) 3 % (1-10) Eosinophils % (Manual) 0 % (0-3) 0 % (0-3) Basophils % (Manual) 0 % (0-2) 0 % (0-2) Band Neutrophils 0 % (0-8) 0 % (0-8) Platelet Estimate Decreased Adequate Platelet Morphology Normal Normal Red Blood Cell Morphology Normal Sodium Level 137 MMOL/L (136-145) 137 MMOL/L (136-145) Potassium Level 4.0 MMOL/L (3.5-5.1) 4.0 MMOL/L (3.5-5.1) Chloride Level 106 MMOL/L (98-107) 107 MMOL/L (98-107) Carbon Dioxide Level 18 MMOL/L (21-32) 19 MMOL/L (21-32) Anion Gap 13 mmol/L (5-15) 11 mmol/L (5-15) Blood Urea Nitrogen 36 mg/dL (7-18) 48 mg/dL (7-18) Creatinine 1.8 MG/DL (0.55-1.30) 2.5 MG/DL (0.55-1.30) Estimat Glomerular Filtration Rate 37.2 mL/min (>60) 25.4 mL/min (>60) Glucose Level 184 MG/DL (74-106) 154 MG/DL (74-106) Calcium Level 8.2 MG/DL (8.5-10.1) 7.7 MG/DL (8.5-10.1) Amylase Level 249 U/L (25-115) Lipase 1000 U/L (73-393) Urine Color Yellow Urine Appearance Slightly cloudy Urine pH 5 (4.5-8.0) Urine Specific [place] 1.025 (1.005-1.035) Urine Protein 3+ (NEGATIVE) Urine Glucose (UA) 1+ (NEGATIVE) Urine Ketones 1+ (NEGATIVE) Urine Blood 5+ (NEGATIVE) Urine Nitrite Positive (NEGATIVE) Urine Bilirubin 1+ (NEGATIVE) Urine Ictotest Negative (NEGATIVE) Urine Urobilinogen Normal MG/DL (0.0-1.0) Urine Leukocyte Esterase 2+ (NEGATIVE) Urine RBC 30-40 /HPF (0 - 0) Urine WBC 15-20 /HPF (0 - 0) Urine Squamous Epithelial Cells None /LPF (NONE/OCC) Urine Amorphous Sediment Many /LPF (NONE) Urine Bacteria Many /HPF (NONE) Urine Granular Casts 0-2 /LPF (NONE) Hypochromasia 1+ Random Vancomycin Level 14.4 ug/mL Troponin I 0.063 ng/mL (0.000-0.056) Test 06/27/19 04:55 Height (Feet): 5 Height (Inches): 7.00 Weight (Pounds): 244 Objective PE General Appearance: no apparent distress, alert HEENT: atraumatic, anicteric Neck: normal alignment, supple Respiratory/Chest: lungs clear, normal breath sounds, no respiratory distress Cardiovascular/Chest: normal rate, regular rhythm Abdomen: non tender, soft, no organomegaly Extremities: non-tender, normal inspection Skin Exam: warm/dry, cyanotic Neurologic: alert Kana Paul MD Jun 27, 2019 05:55
[2019-06-27 05:59] LABS: AMYLASE 210 U/L (25-115)
[2019-06-27] MEDS: Piperacillin/Tazobactam 3.375 GM in NS 110 ML IVPB SCH ×3 (06:07→22:08)
[2019-06-27 06:24] LABS: ALANINE AMINOTRANSFERASE 16 U/L (12-78); ALBUMIN 1.4 G/DL (3.4-5.0); ALBUMIN/GLOBULIN RATIO 0.4 (1.0-2.7); ALKALINE PHOSPHATASE 44 U/L (46-116); ANION GAP 13 mmol/L (5-15); ASPARTATE AMINO TRANSFERASE 13 U/L (15-37); BILIRUBIN,TOTAL 0.4 MG/DL (0.2-1.0); BLOOD UREA NITROGEN 46 mg/dL (7-18); CALCIUM 7.4 MG/DL (8.5-10.1); CARBON DIOXIDE 18 MMOL/L (21-32); CHLORIDE 106 MMOL/L (98-107); CREATININE 2.5 MG/DL (0.55-1.30); POTASSIUM 3.4 MMOL/L (3.5-5.1); SODIUM 137 MMOL/L (136-145)
[2019-06-27] MEDS: NovoLOG Insulin Flexpen SUBQ SCH ×4 (06:30→20:54)
--- NOTE | 2019-06-27 07:15 | NUR ---
HAND-OFF: Report given to Jf SCHULER.
--- NOTE | 2019-06-27 07:33 | NUR ---
NURSE NOTES: Pt awake/alert, breathing easily on 3 lpm nasal cannula, denies SOB and denies pain at this time. Vital signs stable with SR @ 79 on monitor. IV access left forearm with 1/2 NS running @ 75 + zosyn. Pt currently NPO for stress test. Bed left in low position, side rails up x 3 and call light left near pt's hand.
[2019-06-27 08:00] VITALS: BP 133/69
[2019-06-27] MEDS ORDERED: Lexiscan 0.4mg/5ml syringe IV PRN (09:00)
--- NOTE | 2019-06-27 09:10 | NUR ---
CASE MANAGEMENT:REVIEW 06/26/19 SI: SEPSIS. RESPIRATORY FAILURE NSTEMI. ACUTE PANCREATITIS 98.1 76 19 133/69 98% ON 3L/NC WBC+20.9 BUN+46 CR+2.5 IS: IV LINEZOLID Q12 IV ZOSYN Q8HRS IVF@75/HR NAHC03 PO TID NORVASC PO QD ASA PO QD IV PROTONIX QD LOPRESSOR PO Q12 : TELEMETRY DCP: PATIENT IS FROM HOME
[2019-06-27] MEDS: Sodium Bicarbonate 650mg Tab ORAL SCH ×3 (09:15→17:33)
[2019-06-27] MEDS: Pancrelipase Dr Cap ORAL SCH ×3 (09:15→17:33)
[2019-06-27] MEDS: Aspirin Baby 81mg ORAL SCH (09:15)
[2019-06-27] MEDS: Pantoprazole Inj IVP SCH (09:15)
[2019-06-27] MEDS ORDERED: Heparin 1000 units/ml 1ml Vial INJ SCH (09:45)
--- NOTE | 2019-06-27 10:40 | General Progress Note ---
Assessment/Plan Problem List: (1) Acute kidney injury superimposed on CKD ICD Codes: N17.9 - Acute kidney failure, unspecified; N18.9 - Chronic kidney disease, unspecified SNOMED: 75094133, 906031443 (2) Sepsis ICD Codes: A41.9 - Sepsis, unspecified organism SNOMED: 67337741 Qualifiers: Qualified Codes: A41.9 - Sepsis, unspecified organism; R65.21 - Severe sepsis with septic shock; N17.9 - Acute kidney failure, unspecified (3) Elevated troponin ICD Codes: R79.89 - Other specified abnormal findings of blood chemistry SNOMED: 513066225, 278312968, 558145753 Status: stable Assessment/Plan: anemia esophagitis CM pancreatic pseudocyst CAD obesity on low fat diet patient will need EUS but given elevated trop will hold for now repeat CT reviewed abx per id fu cardiology ad nephrology repeat labs in am ppi pancreolipase Subjective ROS Limited/Unobtainable: No Allergies: Coded Allergies: No Known Allergies (Unverified , 06/02/19) Objective Last 24 Hour Vital Signs Date Time Temp Pulse Resp B/P (MAP) Pulse Ox O2 Delivery O2 Flow Rate FiO2 06/27/19 09:15 79 133/69 06/27/19 09:15 79 133/69 06/27/19 08:06 Nasal Cannula 3.0 06/27/19 08:00 98.1 76 19 133/69 (90) 98 06/27/19 08:00 79 06/27/19 07:19 77 16 93 Nasal Cannula 3.0 32 06/27/19 07:19 93 Nasal Cannula 3.0 32 06/27/19 04:00 97.0 73 18 124/65 (84) 98 06/27/19 04:00 74 06/27/19 00:00 78 06/27/19 00:00 98.2 77 18 130/56 (80) 96 06/26/19 22:00 3.0 30 06/26/19 21:27 80 116/64 06/26/19 21:00 Nasal Cannula 3.0 06/26/19 20:00 79 06/26/19 20:00 97.7 80 18 116/64 (81) 95 06/26/19 19:35 83 18 95 Nasal Cannula 3.0 32 06/26/19 19:35 95 Nasal Cannula 3.0 32 06/26/19 16:00 83 06/26/19 16:00 98.1 81 19 131/62 (85) 98 06/26/19 12:00 96.6 76 20 128/62 (84) 98 06/26/19 12:00 80 Intake and Output 06/26/19 06/27/19 19:00 07:00 Intake Total 240 ml Output Total 800 ml 650 ml Balance -560 ml -650 ml Intake Oral 240 ml Output Urine Total 800 ml 650 ml # Bowel Movements 2 1 Laboratory Tests 06/27/19 04:55: White Blood Count 20.9H, Red Blood Count 3.45L, Hemoglobin 10.1L, Hematocrit 29.4L, Mean Corpuscular Volume 85, Mean Corpuscular Hemoglobin 29.2, Mean Corpuscular Hemoglobin Concent 34.3, Red Cell Distribution Width 13.0, Platelet Count 152, Mean Platelet Volume 8.3, Neutrophils (%) (Auto) , Lymphocytes (%) ( Auto) , Monocytes (%) (Auto) , Eosinophils (%) (Auto) , Basophils (%) (Auto) , Differential Total Cells Counted 100, Neutrophils % (Manual) 92H, Lymphocytes % (Manual) 4L, Monocytes % (Manual) 3, Eosinophils % (Manual) 1, Basophils % ( Manual) 0, Band Neutrophils 0, Platelet Estimate Adequate, Platelet Morphology Normal, Hypochromasia 1+, Sodium Level 137, Potassium Level 3.4L, Chloride Level 106, Carbon Dioxide Level 18L, Anion Gap 13, Blood Urea Nitrogen 46H, Creatinine 2.5H, Estimat Glomerular Filtration Rate 25.4, Glucose Level 146H, Calcium Level 7.4L, Total Bilirubin 0.4, Aspartate Amino Transf (AST/SGOT) 13L, Alanine Aminotransferase (ALT/SGPT) 16, Alkaline Phosphatase 44L, Pro-B-Type Natriuretic Peptide 5995H, Total Protein 4.6L, Albumin 1.4L, Globulin 3.2, Albumin/Globulin Ratio 0.4L, Amylase Level 210H, Lipase 330 06/27/19 07:50: Troponin I 0.034 Height (Feet): 5 Height (Inches): 7.00 Weight (Pounds): 244 General Appearance: alert EENT: normal ENT inspection Neck: supple Cardiovascular: normal rate Respiratory/Chest: lungs clear Abdomen: normal bowel sounds, non tender, soft Extremities: non-tender Peyman Akbar MD Jun 27, 2019 10:40
--- NOTE | 2019-06-27 11:21 | NUR ---
NURSE NOTES: Heparin 2000 units ordered for patient actually added to test tube for a blood draw.
--- NOTE | 2019-06-27 11:34 | NUR ---
NM Indium WBC Scan: Blood drawn and sent to [facility] for Indium-111 WBC labeling. Return time for Indium-111 labeled WBCs for re-injection is 3-6 hours. Addendum: 06/27/19 at 1540 by NIMOC SANTIZO Pt injected with Indium-111 labeled WBCs at 1530hrs. Scanning will be performed tomorrow per protocol.
--- NOTE | 2019-06-27 11:35 | General Progress Note ---
Assessment/Plan Problem List: (1) Renal failure ICD Codes: N19 - Unspecified kidney failure SNOMED: 29583608 Qualifiers: Qualified Codes: N17.9 - Acute kidney failure, unspecified (2) Transient hypotension ICD Codes: I95.9 - Hypotension, unspecified SNOMED: 89510973334860 (3) Sepsis ICD Codes: A41.9 - Sepsis, unspecified organism SNOMED: 44408687 Qualifiers: Qualified Codes: A41.9 - Sepsis, unspecified organism; R65.21 - Severe sepsis with septic shock; N17.9 - Acute kidney failure, unspecified (4) Hypoxia ICD Codes: R09.02 - Hypoxemia SNOMED: 776602491 Status: stable Assessment/Plan: 73 year old man with HTN, IDDM, ? history of CVA who presented to [facility] [place] ED with nausea,vomiting. #septic shock, POA #Klebsiella bacteremia #Leukocytosis - improving -ICU --> SHIRLEY -cont antibiotics as per ID recs: zosyn, zyvox -repeat cultures 06/21 NGND. -sudden jump in WBC 06/24, repeat cultures ordered per ID. -repeat CT A/P (06/25) with mild improvement of pseudocyst. no abscess or acute pathology identified. -indium scan ordered per ID #Chronic systolic CHF -Cardiology following. -TTE with EF ~40% -Continue MTP 25 BID -Start aldactone when Cr < 1.5 -Stress test when more stable. #acute hypoxic resp failure without hypercarbia -intermittent BiPAP -continue inhaled bronchodilators -Pulm/CCM following -bipap prn and QHS #NSTEMI, peak trop of 2, likely due to demand ischemia -Stop heparin due to thrombocytopenia -Cardiology following #acute kidney injury on CKD, possible ATN -IV hydration stopped as above -Nephrology following -monitor BMP -avoid nephrotoxic meds -scr with improvement #acute pancreatitis -Advance diet as per GI -? Need for EUS #Thrombocytopenia, no active bleeding noted #Rule out HIT -off heparin -transfuse for Platelets < 20K -cont to monitor daily CBC -f/u HIT panel -Hematology consult appreciated #Hypokalemia, hypomagnesemia -replace and monitor labs #lactic acidosis #HTN -cont to hold BP meds #DM type 2 -ISS VTE PPx Heparin Full Code Time spent on encounter: 35 mins, >50% on counseling, coordination of care. Time of note doesn't reflect time of encounter. Subjective Date patient seen: Jun 27, 2019 Time patient seen: 09:00 Constitutional: Denies: no symptoms, chills, diaphoresis, fever, malaise, weakness, other HEENT: Denies: no symptoms, eye pain, blurred vision, tearing, double vision, ear pain, ear discharge, nose pain, nose congestion, throat pain, throat swelling, mouth pain, mouth swelling, other Cardiovascular: Denies: no symptoms, chest pain, edema, irregular heart rate, lightheadedness, palpitations, syncope, other Respiratory: Denies: no symptoms, cough, orthopnea, shortness of breath, SOB with excertion, SOB at rest, sputum, stridor, wheezing, other Gastrointestinal/Abdominal: Denies: no symptoms, abdomen distended, abdominal pain, black stools, tarry stools, blood in stool, constipated, diarrhea, difficulty swallowing, nausea, poor appetite, poor fluid intake, rectal bleeding , vomiting, other Genitourinary: Denies: no symptoms, burning, discharge, frequency, flank pain, hematuria, incontinence, pain, urgency, other Neurologic/Psychiatric: Denies: no symptoms, anxiety, depressed, emotional problems, headache, numbness, paresthesia, pre-existing deficit, seizure, tingling, tremors, weakness, other Endocrine: Denies: no symptoms, excessive sweating, flushing, intolerance to cold, intolerance to heat, increased hunger, increased thirst, increased urine, unexplained weight gain, unexplained weight loss, other Hematologic/Lymphatic: Denies: no symptoms, anemia, easy bleeding, easy bruising, other Allergies: Coded Allergies: No Known Allergies (Unverified , 06/02/19) Subjective sitting in chair, had breakfast. denies any issues. abd pain better Objective Last 24 Hour Vital Signs Date Time Temp Pulse Resp B/P (MAP) Pulse Ox O2 Delivery O2 Flow Rate FiO2 06/27/19 09:15 79 133/69 06/27/19 09:15 79 133/69 06/27/19 08:06 Nasal Cannula 3.0 06/27/19 08:00 98.1 76 19 133/69 (90) 98 06/27/19 08:00 79 06/27/19 07:19 77 16 93 Nasal Cannula 3.0 32 3/6/20 07:19 93 Nasal Cannula 3.0 32 06/27/19 04:00 97.0 73 18 124/65 (84) 98 06/27/19 04:00 74 06/27/19 00:00 78 06/27/19 00:00 98.2 77 18 130/56 (80) 96 06/26/19 22:00 3.0 30 06/26/19 21:27 80 116/64 06/26/19 21:00 Nasal Cannula 3.0 06/26/19 20:00 79 06/26/19 20:00 97.7 80 18 116/64 (81) 95 06/26/19 19:35 83 18 95 Nasal Cannula 3.0 32 06/26/19 19:35 95 Nasal Cannula 3.0 32 06/26/19 16:00 83 06/26/19 16:00 98.1 81 19 131/62 (85) 98 06/26/19 12:00 96.6 76 20 128/62 (84) 98 06/26/19 12:00 80 Intake and Output 06/26/19 06/27/19 19:00 07:00 Intake Total 240 ml Output Total 800 ml 650 ml Balance -560 ml -650 ml Intake Oral 240 ml Output Urine Total 800 ml 650 ml # Bowel Movements 2 1 Laboratory Tests 06/27/19 04:55: White Blood Count 20.9H, Red Blood Count 3.45L, Hemoglobin 10.1L, Hematocrit 29.4L, Mean Corpuscular Volume 85, Mean Corpuscular Hemoglobin 29.2, Mean Corpuscular Hemoglobin Concent 34.3, Red Cell Distribution Width 13.0, Platelet Count 152, Mean Platelet Volume 8.3, Neutrophils (%) (Auto) , Lymphocytes (%) ( Auto) , Monocytes (%) (Auto) , Eosinophils (%) (Auto) , Basophils (%) (Auto) , Differential Total Cells Counted 100, Neutrophils % (Manual) 92H, Lymphocytes % (Manual) 4L, Monocytes % (Manual) 3, Eosinophils % (Manual) 1, Basophils % ( Manual) 0, Band Neutrophils 0, Platelet Estimate Adequate, Platelet Morphology Normal, Hypochromasia 1+, Sodium Level 137, Potassium Level 3.4L, Chloride Level 106, Carbon Dioxide Level 18L, Anion Gap 13, Blood Urea Nitrogen 46H, Creatinine 2.5H, Estimat Glomerular Filtration Rate 25.4, Glucose Level 146H, Calcium Level 7.4L, Total Bilirubin 0.4, Aspartate Amino Transf (AST/SGOT) 13L, Alanine Aminotransferase (ALT/SGPT) 16, Alkaline Phosphatase 44L, Pro-B-Type Natriuretic Peptide 5995H, Total Protein 4.6L, Albumin 1.4L, Globulin 3.2, Albumin/Globulin Ratio 0.4L, Amylase Level 210H, Lipase 330 06/27/19 07:50: Troponin I 0.034 Height (Feet): 5 Height (Inches): 7.00 Weight (Pounds): 244 General Appearance: no apparent distress, alert Neck: supple Cardiovascular: normal rate, regular rhythm Respiratory/Chest: lungs clear, normal breath sounds Abdomen: non tender, soft Ama Mallory M.D. Jun 27, 2019 11:35
[2019-06-27 12:00] VITALS: BP 131/54
--- NOTE | 2019-06-27 12:15 | NUR ---
RD ASSESSMENT & RECOMMENDATIONS SEE CARE ACTIVITY FOR COMPLETE ASSESSMENT DAILY ESTIMATED NEEDS: Needs based on Obese, pulmonary, WOUND/ 78kg abw 20-25 kcals/kg 2147-6510 total kcals 1.25-1.5 g protein/kg 97-117 g total protein 20-30ml/kcal mL/kg 5653-2788 total fluid mLs NUTRITION DIAGNOSIS: * Decreased fat needs r/t acute pancreatitis as evidenced by elevated lipase 533 -> 1000 -> 330 now wnl, pt is obese class II. (UPDATED) * Increased protein and micronutrients needs R/T wound healing as evidenced by pt w/ new open wound at sacrum, pending evaluation. (UPDATED) CURRENT DIET:Low Fat, CCHO MED/ soft easy chew PO DIET RECOMMENDATIONS: LOW FAT, CCHO MED / texture per OIL PROSPECTING OBSERVER ADDITIONAL RECOMMENDATIONS: 1) Rec A1C for eval 2) Calibrated bed scale wts 3) Monitor PO tolerance -> now Lipase wnl, amylase up, on Zenpep 4) Wound healing: add MVI x 1, Vit C 250mg QD Angus 1pkt BID added to tray
--- NOTE | 2019-06-27 13:04 | Nephrology Progress Note ---
Assessment/Plan Plan #acute kidney injury - on baseline CKD- Fena 0.4% suggestive of pre-renal aztemia- however UA with sediments and RBC concerning for developing ATN- patient with baseline diabetic nephropathy -Cr uptrended today #sepsis #acute pancreatitis- improved # Hypokalemia, hypopmagnesemia - repleted #lactic acidosis- improved #HTN- stable #DM- controlled #NSTEMI #hypernatremia - improved #eliana on CKD - baseline Cr in mid to high 1s- now worsening in the setting of sepsis and possibly vanco induced #metabolic acidosis - due to renal insufficiency - Cr up to 2.5 - monitor off IVF - monitor Cr - add sodium bicarb 650mg TID #sepsis - antibiotics per ID- - avoid supratherapeutic vanco level - monitor WBC #troponemia - heparin on hold for thrombocytopenia - HIT? - cardiology eval - stress test when ok per cardiology #HTN - hold lisinopril - resume amldipine 5mg daily - metop 25mg BID #DM - hold metformin - ISS Subjective Subjective Breathing stable today - on NC Cr stable at 2.5 K low BP stable Objective Objective Last 24 Hour Vital Signs Date Time Temp Pulse Resp B/P (MAP) Pulse Ox O2 Delivery O2 Flow Rate FiO2 06/27/19 12:00 97.2 75 20 131/54 (79) 98 06/27/19 09:15 79 133/69 06/27/19 09:15 79 133/69 06/27/19 08:06 Nasal Cannula 3.0 06/27/19 08:00 98.1 76 19 133/69 (90) 98 06/27/19 08:00 79 06/27/19 07:19 77 16 93 Nasal Cannula 3.0 32 06/27/19 07:19 93 Nasal Cannula 3.0 32 06/27/19 04:00 97.0 73 18 124/65 (84) 98 06/27/19 04:00 74 06/27/19 00:00 78 06/27/19 00:00 98.2 77 18 130/56 (80) 96 06/26/19 22:00 3.0 30 06/26/19 21:27 80 116/64 06/26/19 21:00 Nasal Cannula 3.0 06/26/19 20:00 79 06/26/19 20:00 97.7 80 18 116/64 (81) 95 06/26/19 19:35 83 18 95 Nasal Cannula 3.0 32 06/26/19 19:35 95 Nasal Cannula 3.0 32 06/26/19 16:00 83 06/26/19 16:00 98.1 81 19 131/62 (85) 98 Intake and Output 06/26/19 06/27/19 19:00 07:00 Intake Total 240 ml Output Total 800 ml 650 ml Balance -560 ml -650 ml Intake Oral 240 ml Output Urine Total 800 ml 650 ml # Bowel Movements 2 1 Laboratory Tests 06/27/19 04:55: White Blood Count 20.9H, Red Blood Count 3.45L, Hemoglobin 10.1L, Hematocrit 29.4L, Mean Corpuscular Volume 85, Mean Corpuscular Hemoglobin 29.2, Mean Corpuscular Hemoglobin Concent 34.3, Red Cell Distribution Width 13.0, Platelet Count 152, Mean Platelet Volume 8.3, Neutrophils (%) (Auto) , Lymphocytes (%) ( Auto) , Monocytes (%) (Auto) , Eosinophils (%) (Auto) , Basophils (%) (Auto) , Differential Total Cells Counted 100, Neutrophils % (Manual) 92H, Lymphocytes % (Manual) 4L, Monocytes % (Manual) 3, Eosinophils % (Manual) 1, Basophils % ( Manual) 0, Band Neutrophils 0, Platelet Estimate Adequate, Platelet Morphology Normal, Hypochromasia 1+, Sodium Level 137, Potassium Level 3.4L, Chloride Level 106, Carbon Dioxide Level 18L, Anion Gap 13, Blood Urea Nitrogen 46H, Creatinine 2.5H, Estimat Glomerular Filtration Rate 25.4, Glucose Level 146H, Calcium Level 7.4L, Total Bilirubin 0.4, Aspartate Amino Transf (AST/SGOT) 13L, Alanine Aminotransferase (ALT/SGPT) 16, Alkaline Phosphatase 44L, Pro-B-Type Natriuretic Peptide 5995H, Total Protein 4.6L, Albumin 1.4L, Globulin 3.2, Albumin/Globulin Ratio 0.4L, Amylase Level 210H, Lipase 330 06/27/19 07:50: Troponin I 0.034 Height (Feet): 5 Height (Inches): 7.00 Weight (Pounds): 244 Objective General Appearance: Alert - no distress Lines, tubes and drains: peripheral HEENT: normocephalic, atraumatic Neck: non-tender, normal alignment Respiratory/Chest: chest wall non-tender, lungs clear, normal breath sounds Cardiovascular/Chest: normal rate, regular rhythm Abdomen: normal bowel sounds, non tender, soft Extremities: non-tender, normal inspection Skin Exam: normal pigmentation, no diaphoresis Gerson Salgado M.D. Jun 27, 2019 13:04
--- NOTE | 2019-06-27 13:12 | Pulmonology Progress Note ---
Assessment/Plan Problems: (1) Sepsis (2) Hypoxia (3) Left upper quadrant abdominal mass (4) Thrombocytopenia Assessment & Plan: Recovered (5) Acute kidney injury superimposed on CKD Assessment/Plan Needs an outpatient PSG, should have an outpatient screening CT chest as well Titrate FiO2 PRN HHN's Monitor volumes and renal function ABx per ID, F/U Cx's F/U cards recs ? ischemia eval once acute issues resolve F/U GI recs Monitor platelets, HIT Ab panel was negative on CS-link, unclear why not loaded to [facility] EMR Cautious PO with STRICT ASPIRATION precautions DVT Px: SCD's FC Subjective Allergies: Coded Allergies: No Known Allergies (Unverified , 06/02/19) Subjective AFVSS O2 needs stable WCT better Weak cough no SOB no FC no CP CT AP noted Objective Last 24 Hour Vital Signs Date Time Temp Pulse Resp B/P (MAP) Pulse Ox O2 Delivery O2 Flow Rate FiO2 06/27/19 12:00 97.2 75 20 131/54 (79) 98 06/27/19 09:15 79 133/69 06/27/19 09:15 79 133/69 06/27/19 08:06 Nasal Cannula 3.0 06/27/19 08:00 98.1 76 19 133/69 (90) 98 06/27/19 08:00 79 06/27/19 07:19 77 16 93 Nasal Cannula 3.0 32 06/27/19 07:19 93 Nasal Cannula 3.0 32 06/27/19 04:00 97.0 73 18 124/65 (84) 98 06/27/19 04:00 74 06/27/19 00:00 78 06/27/19 00:00 98.2 77 18 130/56 (80) 96 06/26/19 22:00 3.0 30 06/26/19 21:27 80 116/64 06/26/19 21:00 Nasal Cannula 3.0 06/26/19 20:00 79 06/26/19 20:00 97.7 80 18 116/64 (81) 95 06/26/19 19:35 83 18 95 Nasal Cannula 3.0 32 06/26/19 19:35 95 Nasal Cannula 3.0 32 06/26/19 16:00 83 06/26/19 16:00 98.1 81 19 131/62 (85) 98 Intake and Output 06/26/19 06/27/19 19:00 07:00 Intake Total 240 ml Output Total 800 ml 650 ml Balance -560 ml -650 ml Intake Oral 240 ml Output Urine Total 800 ml 650 ml # Bowel Movements 2 1 Objective Ob M General Appearance: no acute distress, other - ob M HEENT: normocephalic, atraumatic, anicteric, mucous membranes moist Respiratory/Chest: chest wall non-tender, lungs clear, normal breath sounds, no respiratory distress, no accessory muscle use Cardiovascular: normal peripheral pulses, normal rate, regular rhythm Abdomen: normal bowel sounds, soft, non tender, no organomegaly, non distended , no mass Extremities: no cyanosis, no clubbing, no edema Microbiology Date/Time Source Procedure Growth Status 06/25/19 18:00 Indwelling Cath Urine Culture - Preliminary NO GROWTH AFTER 24 HOURS Resulted Laboratory Tests 06/27/19 04:55: White Blood Count 20.9H, Red Blood Count 3.45L, Hemoglobin 10.1L, Hematocrit 29.4L, Mean Corpuscular Volume 85, Mean Corpuscular Hemoglobin 29.2, Mean Corpuscular Hemoglobin Concent 34.3, Red Cell Distribution Width 13.0, Platelet Count 152, Mean Platelet Volume 8.3, Neutrophils (%) (Auto) , Lymphocytes (%) ( Auto) , Monocytes (%) (Auto) , Eosinophils (%) (Auto) , Basophils (%) (Auto) , Differential Total Cells Counted 100, Neutrophils % (Manual) 92H, Lymphocytes % (Manual) 4L, Monocytes % (Manual) 3, Eosinophils % (Manual) 1, Basophils % ( Manual) 0, Band Neutrophils 0, Platelet Estimate Adequate, Platelet Morphology Normal, Hypochromasia 1+, Sodium Level 137, Potassium Level 3.4L, Chloride Level 106, Carbon Dioxide Level 18L, Anion Gap 13, Blood Urea Nitrogen 46H, Creatinine 2.5H, Estimat Glomerular Filtration Rate 25.4, Glucose Level 146H, Calcium Level 7.4L, Total Bilirubin 0.4, Aspartate Amino Transf (AST/SGOT) 13L, Alanine Aminotransferase (ALT/SGPT) 16, Alkaline Phosphatase 44L, Pro-B-Type Natriuretic Peptide 5995H, Total Protein 4.6L, Albumin 1.4L, Globulin 3.2, Albumin/Globulin Ratio 0.4L, Amylase Level 210H, Lipase 330 06/27/19 07:50: Troponin I 0.034 Current Medications Medications (Trade) Dose Ordered Sig/Arley Route PRN Reason Start Time Stop Time Status Last Admin Dose Admin Acetaminophen (Tylenol) 650 mg Q4H PRN ORAL Mild Pain (Pain Scale 1-3) 06/24/19 19:00 07/15/19 18:59 06/25/19 21:34 Albumin Human 50 ml @ 50 mls/hr DAILYPRN PRN IV For hypotension 06/25/19 09:00 07/25/19 08:59 Amlodipine Besylate (Norvasc) 5 mg DAILY ORAL 06/25/19 09:00 07/24/19 08:59 06/27/19 09:15 Amylase/Lipase/ Protease (Zenpep) 3 ea THREE TIMES A DAY ORAL 06/26/19 14:00 07/26/19 13:59 06/27/19 09:15 Aspirin (ASA) 81 mg DAILY ORAL 06/25/19 09:00 07/20/19 08:59 06/27/19 09:15 Barium Sulfate (Readi-Cat 2) 450 ml NOW PRN ORAL Radiology Procedure 06/25/19 16:00 06/27/19 15:59 Bisacodyl (Dulcolax) 10 mg DAILYPRN PRN RECTAL Constipation 06/24/19 19:00 07/24/19 18:59 Chlorhexidine Gluconate (Mena-Hex 2%) 1 applic DAILY@2000 TOPIC 06/24/19 20:00 07/16/19 19:59 06/25/19 21:27 Dextrose (Dextrose 50%) 25 ml Q30M PRN IV Hypoglycemia 06/24/19 18:45 07/16/19 18:05 Dextrose (Dextrose 50%) 50 ml Q30M PRN IV Hypoglycemia 06/24/19 18:45 07/16/19 18:05 Heparin Sodium (Porcine) (Heparin) 2,000 unit ONCE INJ 06/27/19 09:45 06/27/19 16:00 Insulin Aspart (NovoLOG) AC+HS SUBQ 06/24/19 21:00 07/20/19 17:59 06/26/19 17:39 Linezolid 300 ml @ 300 mls/hr EVERY 12 HOURS IVPB 06/26/19 21:00 07/03/19 20:59 06/27/19 09:19 Magnesium Hydroxide (Mom) 30 ml HSPRN PRN ORAL Constipation 06/24/19 21:00 07/15/19 20:59 Metoprolol Tartrate (Lopressor) 25 mg Q12HR ORAL 06/24/19 21:00 07/20/19 08:59 06/27/19 09:15 Ondansetron HCl (Zofran) 4 mg Q6H PRN IVP Nausea & Vomiting 06/24/19 19:00 07/24/19 18:59 Pantoprazole (Protonix) 40 mg DAILY IVP 06/25/19 09:00 07/16/19 08:59 06/27/19 09:15 Piperacillin Sod/ Tazobactam Sod 3.375 gm/Sodium Chloride 110 ml @ 27.5 mls/hr EVERY 8 HOURS IVPB 06/25/19 14:00 06/30/19 13:59 06/27/19 06:07 Potassium Chloride (K-Dur) 20 meq ONCE ORAL 06/27/19 13:15 06/27/19 15:00 Regadenoson (Lexiscan) 0.4 mg ONCE PRN IV STRESS TEST 06/27/19 09:00 06/28/19 08:59 Sodium Bicarbonate (NaHCO3) 650 mg THREE TIMES A DAY ORAL 06/26/19 13:00 07/26/19 12:59 06/27/19 09:15 Homero Moran MD Jun 27, 2019 13:12
--- NOTE | 2019-06-27 13:38 | Consultation ---
History of Present Illness General Date patient seen: Jun 27, 2019 Reason for Hospitalization: Generalized Weakness Present Illness HPI This is a very pleasant 73 year old male with past medical history significant for insulin dependent DM, hypertension, possible CVA on plavix brought by EMS with chief nausea vomiting and diarrhea for a few days prior to admission. Paramedics found him with blood pressure of 86 in the field. They gave him of 250 fluid bolus and his blood pressure opal to 125 systolic. His glucose was also 124. The diarrhea has been brown without any blood. He is never had this problem before.The patient smokes. He has heard himself wheezing. He denies productive cough. Patient was admitted and has been in the hospital for the approximate the past 12 days. He has been under medical care and management and improving since. His is at bedside with him assisting in care plan. During hospitalization identified to have diarrhea and incontinence at times. He is developed a stage II incontinence associated as well as decubitus sacral ulcer. He has some areas of stage I with potential worsening skin breakdown. Surgery called to evaluate and assist with care. Patient seen, patient evaluated, chart reviewed. Allergies: Coded Allergies: No Known Allergies (Unverified , 06/02/19) Medication History Scheduled Acarbose* (Precose*), 50 MG ORAL THREE TIMES A DAY, (Reported) Amlodipine Besylate* (Amlodipine Besylate*), 10 MG ORAL DAILY, (Reported) Clonidine Hcl* (Catapres*), 0.2 MG ORAL Q6HR, (Reported) Clopidogrel* (Clopidogrel*), 75 MG ORAL DAILY, (Reported) Folic Acid* (Folic Acid*), 1 MG ORAL DAILY, (Reported) Insulin Glargine (Lantus), 0 SUBQ BEDTIME, (Reported) Lisinopril (Lisinopril*), 40 MG ORAL DAILY, (Reported) Metformin Hcl* (Metformin Hcl*), 500 MG ORAL TWICE A DAY, (Reported) Simvastatin (Zocor), 5 MG ORAL BEDTIME, (Reported) Miscellaneous Medications Aspirin (Court Chewable), 81 MG PO, (Reported) Patient History History Provided By: Patient, Family Member, Medical Record, PMD Healthcare decision maker Resuscitation status Full Code Advanced Directive on File Past Medical/Surgical History Past Medical/Surgical History: (1) Laceration (2) Acute head injury (3) Elevated troponin (4) Left upper quadrant abdominal mass (5) Acute pancreatitis (6) Renal failure (7) Hypoxia (8) Sepsis (9) Transient hypotension (10) Acute kidney injury superimposed on CKD (11) low platelet (12) Thrombocytopenia Review of Systems Review of Symptoms General ROS: no weight loss or fever Psychological ROS: no depression or mood changes, no memory loss Ophthalmic ROS: no visual changes or eye irritation ENT ROS: no nasal congestion, hearing loss, dizziness Allergy and Immunology ROS: no allergic symptoms or urticaria Hematological and Lymphatic ROS: no swollen glands, unusual bleeding or bruising Endocrine ROS: no polyuria, polydipsia, weight changes, temperature intolerance Respiratory ROS: no cough, shortness of breath, or wheezing Cardiovascular ROS: no chest pain or dyspnea on exertion Gastrointestinal ROS: denies abdominal pain, bright red blood in stool. Musculoskeletal ROS: no myalgias or arthralgias Neurological ROS: no TIA or stroke symptoms Dermatological ROS: no new or changing skin lesions, rashes or pruritis Physical Exam Physical Exam General appearance: alert, cooperative, no distress, appears stated age Head: Normocephalic, without obvious abnormality, atraumatic Eyes: conjunctivae/corneas clear. PERRL, EOM's intact. Fundi benign Throat: Lips, mucosa, and tongue normal. Teeth and gums normal Neck: supple, symmetrical, trachea midline, no adenopathy, thyroid: not enlarged, symmetric, no tenderness/mass/nodules, no carotid bruit and no JVD Lungs: clear to auscultation bilaterally Heart: regular rate and rhythm, S1, S2 normal, no murmur, click, rub or gallop Abdomen: soft, non-tender. Bowel sounds normal. No masses, no organomegaly Extremities: extremities normal, atraumatic, no cyanosis or edema Pulses: 2+ and symmetric Skin: Skin color, texture, turgor normal. No rashes or lesions Neurologic: Grossly normal Last 24 Hour Vital Signs Date Time Temp Pulse Resp B/P (MAP) Pulse Ox O2 Delivery O2 Flow Rate FiO2 06/27/19 12:00 97.2 75 20 131/54 (79) 98 06/27/19 09:15 79 133/69 06/27/19 09:15 79 133/69 06/27/19 08:06 Nasal Cannula 3.0 06/27/19 08:00 98.1 76 19 133/69 (90) 98 06/27/19 08:00 79 06/27/19 07:19 77 16 93 Nasal Cannula 3.0 32 06/27/19 07:19 93 Nasal Cannula 3.0 32 06/27/19 04:00 97.0 73 18 124/65 (84) 98 06/27/19 04:00 74 06/27/19 00:00 78 06/27/19 00:00 98.2 77 18 130/56 (80) 96 06/26/19 22:00 3.0 30 06/26/19 21:27 80 116/64 06/26/19 21:00 Nasal Cannula 3.0 06/26/19 20:00 79 06/26/19 20:00 97.7 80 18 116/64 (81) 95 06/26/19 19:35 83 18 95 Nasal Cannula 3.0 32 06/26/19 19:35 95 Nasal Cannula 3.0 32 06/26/19 16:00 83 06/26/19 16:00 98.1 81 19 131/62 (85) 98 Intake and Output 06/26/19 06/27/19 19:00 07:00 Intake Total 240 ml Output Total 800 ml 650 ml Balance -560 ml -650 ml Intake Oral 240 ml Output Urine Total 800 ml 650 ml # Bowel Movements 2 1 Laboratory Tests Test 06/27/19 04:55 06/27/19 07:50 White Blood Count 20.9 K/UL (4.8-10.8) H Red Blood Count 3.45 M/UL (4.70-6.10) L Hemoglobin 10.1 G/DL (14.2-18.0) L Hematocrit 29.4 % (42.0-52.0) L Mean Corpuscular Volume 85 FL (80-99) Mean Corpuscular Hemoglobin 29.2 PG (27.0-31.0) Mean Corpuscular Hemoglobin Concent 34.3 G/DL (32.0-36.0) Red Cell Distribution Width 13.0 % (11.6-14.8) Platelet Count 152 K/UL (150-450) Mean Platelet Volume 8.3 FL (6.5-10.1) Neutrophils (%) (Auto) % (45.0-75.0) Lymphocytes (%) (Auto) % (20.0-45.0) Monocytes (%) (Auto) % (1.0-10.0) Eosinophils (%) (Auto) % (0.0-3.0) Basophils (%) (Auto) % (0.0-2.0) Differential Total Cells Counted 100 Neutrophils % (Manual) 92 % (45-75) H Lymphocytes % (Manual) 4 % (20-45) L Monocytes % (Manual) 3 % (1-10) Eosinophils % (Manual) 1 % (0-3) Basophils % (Manual) 0 % (0-2) Band Neutrophils 0 % (0-8) Platelet Estimate Adequate Platelet Morphology Normal Hypochromasia 1+ Sodium Level 137 MMOL/L (136-145) Potassium Level 3.4 MMOL/L (3.5-5.1) L Chloride Level 106 MMOL/L (98-107) Carbon Dioxide Level 18 MMOL/L (21-32) L Anion Gap 13 mmol/L (5-15) Blood Urea Nitrogen 46 mg/dL (7-18) H Creatinine 2.5 MG/DL (0.55-1.30) H Estimat Glomerular Filtration Rate 25.4 mL/min (>60) Glucose Level 146 MG/DL (74-106) H Calcium Level 7.4 MG/DL (8.5-10.1) L Total Bilirubin 0.4 MG/DL (0.2-1.0) Aspartate Amino Transf (AST/SGOT) 13 U/L (15-37) L Alanine Aminotransferase (ALT/SGPT) 16 U/L (12-78) Alkaline Phosphatase 44 U/L (46-116) L Pro-B-Type Natriuretic Peptide 5995 pg/mL (0-125) H Total Protein 4.6 G/DL (6.4-8.2) L Albumin 1.4 G/DL (3.4-5.0) L Globulin 3.2 g/dL Albumin/Globulin Ratio 0.4 (1.0-2.7) L Amylase Level 210 U/L (25-115) H Lipase 330 U/L (73-393) Troponin I 0.034 ng/mL (0.000-0.056) Height (Feet): 5 Height (Inches): 7.00 Weight (Pounds): 244 Medications Current Medications Medications (Trade) Dose Ordered Sig/Arley Route PRN Reason Start Time Stop Time Status Last Admin Dose Admin Acetaminophen (Tylenol) 650 mg Q4H PRN ORAL Mild Pain (Pain Scale 1-3) 06/24/19 19:00 07/15/19 18:59 06/25/19 21:34 Albumin Human 50 ml @ 50 mls/hr DAILYPRN PRN IV For hypotension 06/25/19 09:00 07/25/19 08:59 Amlodipine Besylate (Norvasc) 5 mg DAILY ORAL 06/25/19 09:00 07/24/19 08:59 06/27/19 09:15 Amylase/Lipase/ Protease (Zenpep) 3 ea THREE TIMES A DAY ORAL 06/26/19 14:00 07/26/19 13:59 06/27/19 09:15 Aspirin (ASA) 81 mg DAILY ORAL 06/25/19 09:00 07/20/19 08:59 06/27/19 09:15 Barium Sulfate (Readi-Cat 2) 450 ml NOW PRN ORAL Radiology Procedure 06/25/19 16:00 06/27/19 15:59 Bisacodyl (Dulcolax) 10 mg DAILYPRN PRN RECTAL Constipation 06/24/19 19:00 07/24/19 18:59 Chlorhexidine Gluconate (Mena-Hex 2%) 1 applic DAILY@2000 TOPIC 06/24/19 20:00 07/16/19 19:59 06/25/19 21:27 Dextrose (Dextrose 50%) 25 ml Q30M PRN IV Hypoglycemia 06/24/19 18:45 07/16/19 18:05 Dextrose (Dextrose 50%) 50 ml Q30M PRN IV Hypoglycemia 06/24/19 18:45 07/16/19 18:05 Heparin Sodium (Porcine) (Heparin) 2,000 unit ONCE INJ 06/27/19 09:45 06/27/19 16:00 Insulin Aspart (NovoLOG) AC+HS SUBQ 06/24/19 21:00 07/20/19 17:59 06/26/19 17:39 Linezolid 300 ml @ 300 mls/hr EVERY 12 HOURS IVPB 06/26/19 21:00 07/03/19 20:59 06/27/19 09:19 Magnesium Hydroxide (Mom) 30 ml HSPRN PRN ORAL Constipation 06/24/19 21:00 07/15/19 20:59 Metoprolol Tartrate (Lopressor) 25 mg Q12HR ORAL 06/24/19 21:00 07/20/19 08:59 06/27/19 09:15 Ondansetron HCl (Zofran) 4 mg Q6H PRN IVP Nausea & Vomiting 06/24/19 19:00 07/24/19 18:59 Pantoprazole (Protonix) 40 mg DAILY IVP 06/25/19 09:00 07/16/19 08:59 06/27/19 09:15 Piperacillin Sod/ Tazobactam Sod 3.375 gm/Sodium Chloride 110 ml @ 27.5 mls/hr EVERY 8 HOURS IVPB 06/25/19 14:00 06/30/19 13:59 06/27/19 06:07 Potassium Chloride (K-Dur) 20 meq ONCE ORAL 06/27/19 13:15 06/27/19 15:00 Regadenoson (Lexiscan) 0.4 mg ONCE PRN IV STRESS TEST 06/27/19 09:00 06/28/19 08:59 Sodium Bicarbonate (NaHCO3) 650 mg THREE TIMES A DAY ORAL 06/26/19 13:00 07/26/19 12:59 06/27/19 09:15 Assessment/Plan Problem List: (1) Sacral decubitus ulcer Assessment & Plan: Patient identified to have a stage II sacral decubitus ulcer as well as incontinence associated dermatitis in the surrounding areas. Patient with diarrhea and sometimes sits for prolonged period times in stool. He has been changes frequently as possible by nursing staff and his been instructed to let staff know when incontinence so that they can assist him in changing. A is seen at bedside today with family available. We discussed current status and reviewed the wound together. We evaluated it cleaned and applied new dressings. We discussed the formation the etiology and the prognosis. Patient is able to move on his side on his own and is able to move in bed. He states he lays comfortably on his back but is instructed to return as much as possible. I have told him that the nursing staff and even myself and my team will assist him with turning as much as possible but given the fact that he is able to move on his own it would be strongly advised to turn as often as possible to alleviate pressure on his wound or develop new wounds. I explained to them that in laying in 1 position for prolonged period time can cause worsening cubitus ulcers or new ulcers to form. Long session was had with the patient and family and care plan was initiated. Patient is very amenable to care plan and cooperative. We will continue to monitor while inpatient and ensure improvement. Thank you ICD Codes: L89.159 - Pressure ulcer of sacral region, unspecified stage SNOMED: 129690298 (2) Incontinence associated dermatitis ICD Codes: L30.8 - Other specified dermatitis; R32 - Unspecified urinary incontinence SNOMED: 081209162 (3) Left upper quadrant abdominal mass Assessment & Plan: Telemetry pancreatic mass cystic large with infiltration around it worsening on recent CT. Discussed with GI and agree will need EUS but given elevated troponins and current cardiac status will await clearance and improvement prior to proceeding with EUS. ICD Codes: R19.02 - Left upper quadrant abdominal swelling, mass and lump SNOMED: 827914639 (4) Acute pancreatitis Assessment & Plan: Lungs: Small posterior basilar pleural effusions are demonstrated. Consolidation versus atelectasis involving the lung bases bilaterally. Similar appearance on the prior occasion.. Liver: Unremarkable Gallbladder/biliary system: Gallbladder is absent. No biliary ductal dilatation seen.. Spleen: Unremarkable Pancreas: Pancreas is atrophic. Once again there is a large approximately 10 cm well-circumscribed cystic mass in the left upper quadrant associated with the tail the pancreas. This has been previously described and was seen on the last 2 CT examinations. This cyst is questionably slightly smaller. There is however moderately increased soft tissue stranding in the area surrounding the cyst anteriorly indicative of inflammation. In addition part of the splenic flexure which abuts the cyst and traverses the area of inflammation shows focal dilatation likely a localized inflammatory response or localized ileus. The degree of inflammation has significantly increased and is worse than both the prior occasions on 06/20/2019 or on 06/15/2019. In addition the degree of anasarca has increased. There is a small amount of free fluid within the abdomen which has also increased slightly since the last study. Kidneys/Bladder: No definite stone or hydronephrosis are identified. There is a probable right renal cyst again noted. The urinary bladder is nondistended. Rivero catheter in good position. Adrenal glands: Unremarkable Bowel: Unremarkable. Aorta/IVC: Aortoiliac calcifications are noted consistent with atherosclerotic disease. Peritoneum: There is mild free fluid present within the peritoneal cavity.. Bones: There is narrowing of intervertebral discs and accompanying endplate osteophyte formation. Hypertrophied facet joints also demonstrated. Generalized osteopenia noted. Moderate osteoarthritis of both hips demonstrated. IMPRESSION: Moderate increased inflammation surrounding a 10 cm cystic mass in the left upper quadrant. The cystic mass may be slightly smaller than on the previous CT examinations performed 06/20/2019 and 06/15/2019. 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 Cystic neoplasm is not excluded. Persistent small bilateral pleural effusions and underlying consolidation/atelectasis. Trace ascites. Worsening anasarca. Status post cholecystectomy. Arterial vascular disease. ICD Codes: K85.90 - Acute pancreatitis without necrosis or infection, unspecified SNOMED: 420002830 Qualifiers: Qualified Codes: K85.90 - Acute pancreatitis without necrosis or infection, unspecified Benitez Sheppard Jun 27, 2019 13:38
--- NOTE | 2019-06-27 15:50 | NUR ---
NURSE NOTES:Pt presents with two partial thickness pressure injuries R and L buttocks with surrounding Moisture Associated Skin Damage Partial thickness pressure injury R buttocks (L)2.2cm x (W)1cm. Base of wound is moist and viable with loose skin flap along edges. No odor or exudate. Periwound erythematous with denuded skin. Partial thickness pressure injury L buttocks. Base of wound is moist and viable. Edges are macerated. Non-blanching erythema with moisture denudement periwound.No exudate noted(L)2cm x (W)3cm.Scrotum erythematous with scattered satellite lesions at base of Scrotum. Both heels are boggy with non-blanching erythema. Pt denied tenderness when each heel individually palpated. Pt noted to be incontinent of loose B.M at start of visit. Pt also demonstrated ability to reposition self in bed but according to staff on unit pt is non-compliant and lacks motivation. PT informed of pressure injuries R and L buttocks , erythematous Scrotum and risks for further Skin decline. Pt educated on comorbidities that can contribute to wounds declining. Instructed pt to call for asst with toileting and encouraged to frequently reposition ,at least hourly while in bed. Pt declined to respond to verbal instructions. Spouse visited and updated on skin breakdown . Spouse also educated of risks for further skin breakdown if pt continues to be non-compliant with repositioning and toileting. Tx.Plan: Apply Moisture Barrier Paste to R and L buttocks. Cover with Optifoam drsg. Change every 3 days and prn. Apply Moisture Barrier Paste to Scrotum with each incontinence care. Encourage to reposition self at least hourly while in bed. Apply Cavilon Skin BArrier to each heels. Cover each heel with OPtifoam drsg. Change every 7 days and prn. Off-load heels with Pillow.
[2019-06-27 16:00] VITALS: BP 135/67
--- NOTE | 2019-06-27 19:35 | NUR ---
NURSE NOTES: Received report from Jf Martínez RN. Pt in stable condition, VS wnl. Will continue to monitor closely.
[2019-06-27 20:00] VITALS: BP 130/82
[2019-06-28] VITALS: BP 121/62
[2019-06-28 04:00] VITALS: BP 126/66
[2019-06-28] MEDS: Piperacillin/Tazobactam 3.375 GM in NS 110 ML IVPB SCH ×3 (05:20→22:00)
[2019-06-28] MEDS: NovoLOG Insulin Flexpen SUBQ SCH ×4 (05:57→21:00)
[2019-06-28 07:22] LABS: HEMATOCRIT 28.9 % (42.0-52.0); HEMOGLOBIN 9.8 G/DL (14.2-18.0); MEAN CORPUSCULAR VOLUME 85 FL (80-99); PLATELET COUNT 195 K/UL (150-450); RED CELL DISTRIBUTION WIDTH 12.8 % (11.6-14.8); WHITE BLOOD COUNT 18.6 K/UL (4.8-10.8)
--- NOTE | 2019-06-28 07:24 | NUR ---
HAND-OFF: Report given to Jf Martínez RN. Pt in stable condition.
[2019-06-28 07:34] LABS: ALANINE AMINOTRANSFERASE 7 U/L (12-78); ALBUMIN 1.3 G/DL (3.4-5.0); ALBUMIN/GLOBULIN RATIO 0.4 (1.0-2.7); ALKALINE PHOSPHATASE 44 U/L (46-116); AMYLASE 116 U/L (25-115); ANION GAP 9 mmol/L (5-15); ASPARTATE AMINO TRANSFERASE 10 U/L (15-37); BILIRUBIN,TOTAL 0.4 MG/DL (0.2-1.0); BLOOD UREA NITROGEN 41 mg/dL (7-18); CALCIUM 7.5 MG/DL (8.5-10.1); CARBON DIOXIDE 22 MMOL/L (21-32); CHLORIDE 107 MMOL/L (98-107); CREATININE 2.1 MG/DL (0.55-1.30); POTASSIUM 4.1 MMOL/L (3.5-5.1); SODIUM 138 MMOL/L (136-145)
[2019-06-28 08:00] VITALS: BP 136/61
--- NOTE | 2019-06-28 08:51 | General Progress Note ---
Assessment/Plan Problem List: (1) Acute kidney injury superimposed on CKD ICD Codes: N17.9 - Acute kidney failure, unspecified; N18.9 - Chronic kidney disease, unspecified SNOMED: 57579036, 821937050 (2) Sepsis ICD Codes: A41.9 - Sepsis, unspecified organism SNOMED: 42320319 Qualifiers: Qualified Codes: A41.9 - Sepsis, unspecified organism; R65.21 - Severe sepsis with septic shock; N17.9 - Acute kidney failure, unspecified (3) Elevated troponin ICD Codes: R79.89 - Other specified abnormal findings of blood chemistry SNOMED: 317845907, 025518699, 853589110 Status: stable Assessment/Plan: anemia esophagitis CM pancreatic pseudocyst CAD obesity sepsis on low fat diet patient will need EUS but given elevated trop will hold for now repeat CT reviewed abx per id fu cardiology ad nephrology repeat labs in am ppi pancreolipase Subjective ROS Limited/Unobtainable: Yes Allergies: Coded Allergies: No Known Allergies (Unverified , 06/02/19) Objective Last 24 Hour Vital Signs Date Time Temp Pulse Resp B/P (MAP) Pulse Ox O2 Delivery O2 Flow Rate FiO2 06/28/19 08:25 Nasal Cannula 3.0 06/28/19 08:00 98.1 81 22 136/61 (86) 93 06/28/19 07:36 82 20 96 Nasal Cannula 2.0 28 06/28/19 07:36 96 Nasal Cannula 2.0 28 06/28/19 04:00 70 06/28/19 04:00 97.7 78 20 126/66 (86) 95 06/28/19 00:00 75 06/28/19 00:00 97.9 77 20 121/62 (81) 97 06/27/19 23:29 77 16 95 Nasal Cannula 2.0 28 06/27/19 23:28 95 Nasal Cannula 2.0 28 06/27/19 22:00 1.0 06/27/19 21:00 Nasal Cannula 1.0 06/27/19 20:53 85 138/60 06/27/19 20:00 84 06/27/19 20:00 98.2 82 20 130/82 (98) 97 06/27/19 16:00 76 06/27/19 16:00 97.5 73 18 135/67 (89) 97 06/27/19 12:00 97.2 75 20 131/54 (79) 98 06/27/19 09:15 79 133/69 06/27/19 09:15 79 133/69 Intake and Output 06/27/19 06/28/19 19:00 07:00 Intake Total 140 ml 140 ml Output Total 1500 ml 1500 ml Balance -1360 ml -1360 ml Intake Oral 140 ml 140 ml Output Urine Total 1500 ml 1500 ml # Voids 3 3 # Bowel Movements 1 3 Laboratory Tests 06/28/19 06:15: White Blood Count 18.6H, Red Blood Count 3.40L, Hemoglobin 9.8L, Hematocrit 28.9L, Mean Corpuscular Volume 85, Mean Corpuscular Hemoglobin 28.9, Mean Corpuscular Hemoglobin Concent 34.0, Red Cell Distribution Width 12.8, Platelet Count 195, Mean Platelet Volume 8.1, Neutrophils (%) (Auto) , Lymphocytes (%) ( Auto) , Monocytes (%) (Auto) , Eosinophils (%) (Auto) , Basophils (%) (Auto) , Differential Total Cells Counted 100, Neutrophils % (Manual) 92H, Lymphocytes % (Manual) 3L, Monocytes % (Manual) 4, Eosinophils % (Manual) 1, Basophils % ( Manual) 0, Band Neutrophils 0, Platelet Estimate Adequate, Platelet Morphology Normal, Hypochromasia 1+, Sodium Level 138, Potassium Level 4.1, Chloride Level 107, Carbon Dioxide Level 22, Anion Gap 9, Blood Urea Nitrogen 41H, Creatinine 2.1H, Estimat Glomerular Filtration Rate 31.1, Glucose Level 141H, Calcium Level 7.5L, Total Bilirubin 0.4, Aspartate Amino Transf (AST/SGOT) 10L, Alanine Aminotransferase (ALT/SGPT) 7L, Alkaline Phosphatase 44L, Total Protein 4.4L, Albumin 1.3L, Globulin 3.1, Albumin/Globulin Ratio 0.4L, Amylase Level 116H, Lipase 471H Height (Feet): 5 Height (Inches): 7.00 Weight (Pounds): 245 General Appearance: alert EENT: PERRL/EOMI Neck: supple Cardiovascular: normal rate Respiratory/Chest: decreased breath sounds Abdomen: normal bowel sounds, non tender, soft Extremities: non-tender Peyman Akbar MD Jun 28, 2019 08:51
[2019-06-28] MEDS: Aspirin Baby 81mg ORAL SCH (08:58)
[2019-06-28] MEDS: Pancrelipase Dr Cap ORAL SCH ×3 (08:58→17:50)
[2019-06-28] MEDS: Sodium Bicarbonate 650mg Tab ORAL SCH ×3 (08:58→17:50)
--- NOTE | 2019-06-28 09:45 | General Progress Note ---
Assessment/Plan Status: stable Assessment/Plan: 73 y/o M with PMH HTN, IDDM, ? history of CVA who presented to [facility] [place] ED with nausea,vomiting. On admission pt w/acute respiratory failure, initially admitted to ICU, was placed on BiPAP, pt improved and now on NC. Pt was found to have Klebsiella bacteremia, ID consulted and pt was started on zosyn and zyvox. WBC's elevated on 06/25 for which repeat BCx were drawn which are negative at this time. Pt w/elevated lipase, found to have acute pancreatitis, CT abd revealed pancreatic pseudocyst for which GI was consulted, pt will need EUS once more stable. Pt also w/NSTEMI, acute on chronic heart failure, cardio consulted and plan for stress test once more stable. #Klebsiella bacteremia #Leukocytosis - downtrending #? infected pancreatic pseudocyst, ? aspiration pna/HCAP vs atx, arf -BCx on admission pt was found to be in septic shock, now resolved, BCx + for klebsiella bacteremia -repeat BCx 06/21 NGTD -on 06/25 pt w/leukocytosis, repeat BCx 06/24 NGTD -CT A/P on 06/25: with mild improvement of pseudocyst. no abscess or acute pathology identified. -indium scan ordered per ID -ID following: zosyn, zyvox #Chronic systolic CHF, HFrEF 40% TTE with EF ~40% Continue MTP 25 BID Cardiology following Start aldactone when Cr < 1.5 Stress test likely . #acute hypoxic resp failure without hypercarbia - stable intermittent BiPAP continue inhaled bronchodilators Pulm/CCM following bipap prn and QHS #NSTEMI, peak trop of 2, likely due to demand ischemia was initially placed on heparin on admission, now off heparin due to thrombocytopenia Cardiology following #acute kidney injury on CKD, possible ATN - downtrending s/p IV hydration cont. to monitor BMP avoid nephrotoxic meds scr with improvement Nephrology following #acute pancreatitis #Pancreatic Pseudocyst low fat diet PPI Pancreaolipase GI following: will need EUS when more stable #Thrombocytopenia - resolved #Rule out HIT etiology likely multifactorial, likely due to sepsis Transfuse if Plt < 20k and fever, or if Plt < 10k without fever cont to monitor daily CBC f/u HIT panel Hematology following - ok for DVT ppx w/heparin or lovenox when plts >50k #Hypokalemia, hypomagnesemia - resolved replaced, cont. to monito, replace PRN #lactic acidosis #HTN cont to hold BP meds #DM type 2 ISS #Septic shock - resolved on admission pt was in ICU, now improved off pressors cont. to monitor VTE PPx SCDs Full Code Time spent on encounter: 35 mins, >50% on counseling, coordination of care and additional 45 mins spent on chart review. Time of note doesn't reflect time of encounter. Subjective Constitutional: Denies: no symptoms, chills, diaphoresis, fever, malaise, weakness, other HEENT: Denies: no symptoms, eye pain, blurred vision, tearing, double vision, ear pain, ear discharge, nose pain, nose congestion, throat pain, throat swelling, mouth pain, mouth swelling, other Cardiovascular: Reports: no symptoms; Denies: chest pain, edema, irregular heart rate, lightheadedness, palpitations, syncope, other Respiratory: Reports: no symptoms, cough - non-productive cough; Denies: orthopnea, shortness of breath, SOB with excertion, SOB at rest, sputum, stridor , wheezing, other Gastrointestinal/Abdominal: Denies: no symptoms, abdomen distended, abdominal pain, black stools, tarry stools, blood in stool, constipated, diarrhea, difficulty swallowing, nausea, poor appetite, poor fluid intake, rectal bleeding , vomiting, other Genitourinary: Denies: no symptoms, burning, discharge, frequency, flank pain, hematuria, incontinence, pain, urgency, other Neurologic/Psychiatric: Denies: no symptoms, anxiety, depressed, emotional problems, headache, numbness, paresthesia, pre-existing deficit, seizure, tingling, tremors, weakness, other Endocrine: Denies: no symptoms, excessive sweating, flushing, intolerance to cold, intolerance to heat, increased hunger, increased thirst, increased urine, unexplained weight gain, unexplained weight loss, other Hematologic/Lymphatic: Denies: no symptoms, anemia, easy bleeding, easy bruising, other Allergies: Coded Allergies: No Known Allergies (Unverified , 06/02/19) Subjective No acute events overnight. Patient states breathing has overall improved compared to admission. Patient with no concerns at this time. Objective Last 24 Hour Vital Signs Date Time Temp Pulse Resp B/P (MAP) Pulse Ox O2 Delivery O2 Flow Rate FiO2 06/28/19 08:58 81 136/61 06/28/19 08:57 81 136/61 06/28/19 08:25 Nasal Cannula 3.0 06/28/19 08:00 98.1 81 22 136/61 (86) 93 06/28/19 07:36 82 20 96 Nasal Cannula 2.0 28 06/28/19 07:36 96 Nasal Cannula 2.0 28 06/28/19 04:00 70 06/28/19 04:00 97.7 78 20 126/66 (86) 95 06/28/19 00:00 75 06/28/19 00:00 97.9 77 20 121/62 (81) 97 06/27/19 23:29 77 16 95 Nasal Cannula 2.0 28 06/27/19 23:28 95 Nasal Cannula 2.0 28 06/27/19 22:00 1.0 06/27/19 21:00 Nasal Cannula 1.0 06/27/19 20:53 85 138/60 06/27/19 20:00 84 06/27/19 20:00 98.2 82 20 130/82 (98) 97 06/27/19 16:00 76 06/27/19 16:00 97.5 73 18 135/67 (89) 97 06/27/19 12:00 97.2 75 20 131/54 (79) 98 Intake and Output 06/27/19 06/28/19 19:00 07:00 Intake Total 140 ml 140 ml Output Total 1500 ml 1500 ml Balance -1360 ml -1360 ml Intake Oral 140 ml 140 ml Output Urine Total 1500 ml 1500 ml # Voids 3 3 # Bowel Movements 1 3 Laboratory Tests 06/28/19 06:15: White Blood Count 18.6H, Red Blood Count 3.40L, Hemoglobin 9.8L, Hematocrit 28.9L, Mean Corpuscular Volume 85, Mean Corpuscular Hemoglobin 28.9, Mean Corpuscular Hemoglobin Concent 34.0, Red Cell Distribution Width 12.8, Platelet Count 195, Mean Platelet Volume 8.1, Neutrophils (%) (Auto) , Lymphocytes (%) ( Auto) , Monocytes (%) (Auto) , Eosinophils (%) (Auto) , Basophils (%) (Auto) , Differential Total Cells Counted 100, Neutrophils % (Manual) 92H, Lymphocytes % (Manual) 3L, Monocytes % (Manual) 4, Eosinophils % (Manual) 1, Basophils % ( Manual) 0, Band Neutrophils 0, Platelet Estimate Adequate, Platelet Morphology Normal, Hypochromasia 1+, Sodium Level 138, Potassium Level 4.1, Chloride Level 107, Carbon Dioxide Level 22, Anion Gap 9, Blood Urea Nitrogen 41H, Creatinine 2.1H, Estimat Glomerular Filtration Rate 31.1, Glucose Level 141H, Calcium Level 7.5L, Total Bilirubin 0.4, Aspartate Amino Transf (AST/SGOT) 10L, Alanine Aminotransferase (ALT/SGPT) 7L, Alkaline Phosphatase 44L, Total Protein 4.4L, Albumin 1.3L, Globulin 3.1, Albumin/Globulin Ratio 0.4L, Amylase Level 116H, Lipase 471H Height (Feet): 5 Height (Inches): 7.00 Weight (Pounds): 245 Objective General Appearance: NAD, alert, awake HEENT: NCAT, PERRL/EOMI Neck: supple Cardiovascular: RRR, normal S1 S2 Respiratory/Chest: decreased breath sounds, otherwise no accessory muslce usage or conversational dyspnea Abdomen: normal bowel sounds, non tender, soft Extremities: non-tender, no edema Nery Galindo M.D. Jun 28, 2019 09:45
[2019-06-28 12:00] VITALS: BP 147/70
[2019-06-28] MEDS ORDERED: 1/2 NS 1000ml IV ONE (12:01)
[2019-06-28] MEDS ORDERED: Tubing IV Secondary IV ONE (12:01)
[2019-06-28] MEDS ORDERED: NS 275ml ONE (12:01)
--- NOTE | 2019-06-28 12:52 | Pulmonology Progress Note ---
Assessment/Plan Problems: (1) Sepsis (2) Hypoxia (3) Left upper quadrant abdominal mass (4) Thrombocytopenia Assessment & Plan: Recovered Hit Ab panel neg (5) Acute kidney injury superimposed on CKD Assessment/Plan Needs an outpatient PSG, should have an outpatient screening CT chest as well Titrate FiO2 PRN HHN's Monitor volumes and renal function ABx per ID, F/U Cx's F/U cards recs ---> plan for stress test next week F/U GI recs ASPIRATION precautions DVT Px: SCD's FC Subjective Allergies: Coded Allergies: No Known Allergies (Unverified , 06/02/19) Subjective AFVSS O2 needs stable WCT better Weak cough no SOB no FC no CP Plan for stress test next week Objective Last 24 Hour Vital Signs Date Time Temp Pulse Resp B/P (MAP) Pulse Ox O2 Delivery O2 Flow Rate FiO2 06/28/19 08:58 81 136/61 06/28/19 08:57 81 136/61 06/28/19 08:25 Nasal Cannula 3.0 06/28/19 08:00 98.1 81 22 136/61 (86) 93 06/28/19 08:00 81 06/28/19 07:36 82 20 96 Nasal Cannula 2.0 28 06/28/19 07:36 96 Nasal Cannula 2.0 28 06/28/19 04:00 70 06/28/19 04:00 97.7 78 20 126/66 (86) 95 06/28/19 00:00 75 06/28/19 00:00 97.9 77 20 121/62 (81) 97 06/27/19 23:29 77 16 95 Nasal Cannula 2.0 28 06/27/19 23:28 95 Nasal Cannula 2.0 28 06/27/19 22:00 1.0 06/27/19 21:00 Nasal Cannula 1.0 06/27/19 20:53 85 138/60 06/27/19 20:00 84 06/27/19 20:00 98.2 82 20 130/82 (98) 97 06/27/19 16:00 76 06/27/19 16:00 97.5 73 18 135/67 (89) 97 Intake and Output 06/27/19 06/28/19 19:00 07:00 Intake Total 140 ml 140 ml Output Total 1500 ml 1500 ml Balance -1360 ml -1360 ml Intake Oral 140 ml 140 ml Output Urine Total 1500 ml 1500 ml # Voids 3 3 # Bowel Movements 1 3 Objective Ob M General Appearance: no acute distress, other - ob male HEENT: normocephalic, atraumatic, anicteric, mucous membranes moist Respiratory/Chest: chest wall non-tender, lungs clear, normal breath sounds, no respiratory distress, no accessory muscle use Cardiovascular: normal peripheral pulses, normal rate, regular rhythm Abdomen: normal bowel sounds, soft, non tender, no organomegaly, non distended , no mass Extremities: no cyanosis, no clubbing, no edema Microbiology Date/Time Source Procedure Growth Status 06/25/19 18:00 Indwelling Cath Urine Culture - Final NO GROWTH AFTER 48 HOURS Complete Laboratory Tests 06/28/19 06:15: White Blood Count 18.6H, Red Blood Count 3.40L, Hemoglobin 9.8L, Hematocrit 28.9L, Mean Corpuscular Volume 85, Mean Corpuscular Hemoglobin 28.9, Mean Corpuscular Hemoglobin Concent 34.0, Red Cell Distribution Width 12.8, Platelet Count 195, Mean Platelet Volume 8.1, Neutrophils (%) (Auto) , Lymphocytes (%) ( Auto) , Monocytes (%) (Auto) , Eosinophils (%) (Auto) , Basophils (%) (Auto) , Differential Total Cells Counted 100, Neutrophils % (Manual) 92H, Lymphocytes % (Manual) 3L, Monocytes % (Manual) 4, Eosinophils % (Manual) 1, Basophils % ( Manual) 0, Band Neutrophils 0, Platelet Estimate Adequate, Platelet Morphology Normal, Hypochromasia 1+, Sodium Level 138, Potassium Level 4.1, Chloride Level 107, Carbon Dioxide Level 22, Anion Gap 9, Blood Urea Nitrogen 41H, Creatinine 2.1H, Estimat Glomerular Filtration Rate 31.1, Glucose Level 141H, Calcium Level 7.5L, Total Bilirubin 0.4, Aspartate Amino Transf (AST/SGOT) 10L, Alanine Aminotransferase (ALT/SGPT) 7L, Alkaline Phosphatase 44L, Total Protein 4.4L, Albumin 1.3L, Globulin 3.1, Albumin/Globulin Ratio 0.4L, Amylase Level 116H, Lipase 471H Current Medications Medications (Trade) Dose Ordered Sig/Arley Route PRN Reason Start Time Stop Time Status Last Admin Dose Admin Acetaminophen (Tylenol) 650 mg Q4H PRN ORAL Mild Pain (Pain Scale 1-3) 06/24/19 19:00 07/15/19 18:59 06/25/19 21:34 Albumin Human 50 ml @ 50 mls/hr DAILYPRN PRN IV For hypotension 06/25/19 09:00 07/25/19 08:59 Amlodipine Besylate (Norvasc) 5 mg DAILY ORAL 06/25/19 09:00 07/24/19 08:59 06/28/19 08:57 Amylase/Lipase/ Protease (Zenpep) 3 ea THREE TIMES A DAY ORAL 06/26/19 14:00 07/26/19 13:59 06/28/19 12:15 Aspirin (ASA) 81 mg DAILY ORAL 06/25/19 09:00 07/20/19 08:59 06/28/19 08:58 Bisacodyl (Dulcolax) 10 mg DAILYPRN PRN RECTAL Constipation 06/24/19 19:00 07/24/19 18:59 Dextrose (Dextrose 50%) 25 ml Q30M PRN IV Hypoglycemia 06/24/19 18:45 07/16/19 18:05 Dextrose (Dextrose 50%) 50 ml Q30M PRN IV Hypoglycemia 06/24/19 18:45 07/16/19 18:05 Insulin Aspart (NovoLOG) AC+HS SUBQ 06/24/19 21:00 07/20/19 17:59 06/28/19 12:13 Linezolid 300 ml @ 300 mls/hr EVERY 12 HOURS IVPB 06/26/19 21:00 07/03/19 20:59 06/28/19 08:57 Magnesium Hydroxide (Mom) 30 ml HSPRN PRN ORAL Constipation 06/24/19 21:00 07/15/19 20:59 Metoprolol Tartrate (Lopressor) 25 mg Q12HR ORAL 06/24/19 21:00 07/20/19 08:59 06/28/19 08:58 Ondansetron HCl (Zofran) 4 mg Q6H PRN IVP Nausea & Vomiting 06/24/19 19:00 07/24/19 18:59 Pantoprazole (Protonix) 40 mg DAILY ORAL 06/28/19 09:00 07/28/19 08:59 06/28/19 08:58 Piperacillin Sod/ Tazobactam Sod 3.375 gm/Sodium Chloride 110 ml @ 27.5 mls/hr EVERY 8 HOURS IVPB 06/25/19 14:00 06/30/19 13:59 06/28/19 05:20 Sodium Bicarbonate (NaHCO3) 650 mg THREE TIMES A DAY ORAL 06/26/19 13:00 07/26/19 12:59 06/28/19 12:14 Homero Moran MD Jun 28, 2019 12:52
--- NOTE | 2019-06-28 13:18 | Infectious Diseases Prog Note ---
Assessment/Plan Assessment/Plan 1. hx klebsiella bacteremia, sepsis, leukocytosis, ? infected pancreatic pseudocyst, ? aspiration pna/HCAP vs atx, arf, CT abdomen and pelvis noted - zosyn and zyvox, avoid nephrotoxic antibiotics - surveillance cultures negative, chest x-ray with atx - monitor labs, leukocytosis slowly improving - CT abdomen - 06/26/19 noted - slt decrease in pseudocyst, atx vs consolidation, effusion - indium scan ordered - c.diff. ordered for rectal tube and diarrhea 2. Shock - improved, off pressors 3. Shortness of breath, hypoxia, on BiPAP - improved, off pressors 4. Pulmonary followup. 5. Acute renal failure. 6. Anemia. 7. Diabetes. 8. Hypertension. 9. Blood sugar and blood pressure treatment per primary care team. 10. Possible CVA history. 11. No known drug allergies. 12. Social history is negative. 13. Family history is noncontributory. 14. MAR was noted. 15. Case discussed with RN. 16. Continue treatment per primary consultants. 17. ICU care. 18. Skin care protocol. 19. Orders were noted and entered. 20. GI followup. Subjective Constitutional: Reports: fatigue; Denies: fever HEENT: Denies: congestion Respiratory: Denies: shortness of breath Cardiovascular: Denies: chest pain Gastrointestinal/Abdominal: Reports: diarrhea; Denies: nausea, vomiting Genitourinary: Reports: other - + contreras Neurologic: Denies: headache Psychiatric: Denies: depression Skin: Denies: rash Hematologic: Denies: bleeding Musculoskeletal: Reports: pain - less abdominal pain Allergies: Coded Allergies: No Known Allergies (Unverified , 06/02/19) Objective Vital Signs Last 24 Hour Vital Signs Date Time Temp Pulse Resp B/P (MAP) Pulse Ox O2 Delivery O2 Flow Rate FiO2 06/28/19 08:58 81 136/61 06/28/19 08:57 81 136/61 06/28/19 08:25 Nasal Cannula 3.0 06/28/19 08:00 98.1 81 22 136/61 (86) 93 06/28/19 08:00 81 06/28/19 07:36 82 20 96 Nasal Cannula 2.0 28 06/28/19 07:36 96 Nasal Cannula 2.0 28 06/28/19 04:00 70 06/28/19 04:00 97.7 78 20 126/66 (86) 95 06/28/19 00:00 75 06/28/19 00:00 97.9 77 20 121/62 (81) 97 06/27/19 23:29 77 16 95 Nasal Cannula 2.0 28 06/27/19 23:28 95 Nasal Cannula 2.0 28 06/27/19 22:00 1.0 06/27/19 21:00 Nasal Cannula 1.0 06/27/19 20:53 85 138/60 06/27/19 20:00 84 06/27/19 20:00 98.2 82 20 130/82 (98) 97 06/27/19 16:00 76 06/27/19 16:00 97.5 73 18 135/67 (89) 97 Height (Feet): 5 Height (Inches): 7.00 Weight (Pounds): 245 General Appearance: no acute distress HEENT: normocephalic, atraumatic, anicteric Respiratory/Chest: lungs clear, normal breath sounds, no accessory muscle use Cardiovascular: normal rate, regular rhythm, no gallop/murmur, no JVD Abdomen: normal bowel sounds, soft, non tender, no organomegaly, distended - some pain but no rebound Genitourinary: other - + contreras - urine clear Extremities: no cyanosis Skin: no rash Neurologic/Psychiatric: massotherapist II-XII 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 Findings: Pulmonary vascular interstitial prominence demonstrated with cardiomegaly. There is a left-sided PICC line with the tip projected over the SVC. Old right clavicle fracture noted. IMPRESSION: Mild CHF CT abdomen and pelvis - 06/15/19 - Impression: Unilocular left upper quadrant cystic mass adjacent to the tail of pancreas and the greater curvature of the stomach. Favor pancreatic pseudocyst, particularly in view of evidence of pancreatic atrophy. However, cystic neoplasm of pancreatic, gastric, or other origin also possible. Consider contrast MRI for better characterization Small ventral hernia containing a single small loop of small bowel, no definite obstruction or strangulation related to such Mildly distended proximal small bowel with slow forward transit of ingested contrast. Suspect ileus or enteritis, although early/partial small bowel obstruction also possible. Correlate with clinical findings Mild distal soft tissue wall thickening, esophagitis possible. Correlate with clinical findings Bilateral basilar pulmonary parenchymal infiltrates versus edema, fairly extensive Cardiomegaly. Apparent bladder wall thickening. Probably an artifact of lack of distention, but cystitis also possible Nonspecific bilateral perinephric fat stranding. Suspect chronic although acute renal inflammation also possible Chest x-ray - 06/20/19 - Procedure: XRAY Chest 1v Indication: Cough Technique: One view of the chest Comparison: 06/19/2019 Findings: Right mid and lower lung infiltrates, generalized interstitial congestion persists, unchanged. Cardiomegaly again demonstrated. Impression: Unchanged, over one day, findings as above. CT abdomen and pelvis - 06/20/19 - Impression: Left upper quadrant cystic mass adjacent to the pancreatic tail and greater curvature the stomach, also reported previously, equivocally slightly larger currently. As previously described, most likely a pancreatic pseudocyst. Cystic pancreatic neoplasm also possible Trace ascites. This is a new finding since the prior exam. Bilateral pleural effusions and bilateral pulmonary parenchymal compressive atelectasis. Likewise a new finding since previous study Nonspecific bilateral perinephric fat stranding, also previously reported Bilateral basilar pulmonary interstitial and airspace edema Generalized edema of the subcutaneous fat Portable cardiomegaly Empty bladder with a Contreras catheter Degenerative spondylosis Chest x-ray - 06/24/19- Comparison: 06/12/2019 A single view chest radiograph was obtained. Findings: No definite infiltrate or pulmonary vascular congestion identified. The heart is enlarged. The aorta is mildly enlarged consistent with atherosclerotic vascular disease. The bones are osteopenic. There are thoracic vertebral enthesophytes at multiple levels. Impression: No acute disease 06/26/19 - CT scan of abdomen and pelvis: IMPRESSION: Moderate increased inflammation surrounding a 10 cm cystic mass in the left upper quadrant. The cystic mass may be slightly smaller than on the previous CT examinations performed 06/20/2019 and 06/15/2019. 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 Cystic neoplasm is not excluded. Persistent small bilateral pleural effusions and underlying consolidation/atelectasis. Trace ascites. Worsening anasarca. Status post cholecystectomy. Arterial vascular disease. Chest x-ray - 06/25/19 - Procedure: XRAY Chest 1v Indication: Dyspnea Comparison: 06/23/2019 A single view chest radiograph was obtained. Findings: Interstitial is mildly prominent but findings appear stable. There is suspected mild atelectasis right lung base. Please correlate clinically. Similar findings seen previously. The heart is enlarged. IMPRESSION: Mild right basal atelectasis. No change otherwise. Microbiology Date/Time Source Procedure Growth Status 06/25/19 10:20 Blood Blood Culture - Preliminary NO GROWTH AFTER 48 HOURS Resulted 06/17/19 10:00 Sputum Induced Gram Stain - Final Complete 06/17/19 10:00 Sputum Induced Sputum Culture - Final NO GROWTH AFTER 48 HOURS Complete 06/19/19 10:20 Stool Stool Culture - Final NO SALMONELLA,SHIGELLA,OR CAMPYLOBACT... Complete 06/25/19 18:00 Indwelling Cath Urine Culture - Final NO GROWTH AFTER 48 HOURS Complete 06/22/19 21:00 Arm Left Catheter Tip Culture - Final NO GROWTH AFTER 4 DAYS Complete Microbiology Date/Time Source Procedure Growth Status 06/25/19 18:00 Indwelling Cath Urine Culture - Final NO GROWTH AFTER 48 HOURS Complete Laboratory Tests Test 06/28/19 06:15 White Blood Count 18.6 K/UL (4.8-10.8) H Red Blood Count 3.40 M/UL (4.70-6.10) L Hemoglobin 9.8 G/DL (14.2-18.0) L Hematocrit 28.9 % (42.0-52.0) L Mean Corpuscular Volume 85 FL (80-99) Mean Corpuscular Hemoglobin 28.9 PG (27.0-31.0) Mean Corpuscular Hemoglobin Concent 34.0 G/DL (32.0-36.0) Red Cell Distribution Width 12.8 % (11.6-14.8) Platelet Count 195 K/UL (150-450) Mean Platelet Volume 8.1 FL (6.5-10.1) Neutrophils (%) (Auto) % (45.0-75.0) Lymphocytes (%) (Auto) % (20.0-45.0) Monocytes (%) (Auto) % (1.0-10.0) Eosinophils (%) (Auto) % (0.0-3.0) Basophils (%) (Auto) % (0.0-2.0) Differential Total Cells Counted 100 Neutrophils % (Manual) 92 % (45-75) H Lymphocytes % (Manual) 3 % (20-45) L Monocytes % (Manual) 4 % (1-10) Eosinophils % (Manual) 1 % (0-3) Basophils % (Manual) 0 % (0-2) Band Neutrophils 0 % (0-8) Platelet Estimate Adequate Platelet Morphology Normal Hypochromasia 1+ Sodium Level 138 MMOL/L (136-145) Potassium Level 4.1 MMOL/L (3.5-5.1) Chloride Level 107 MMOL/L (98-107) Carbon Dioxide Level 22 MMOL/L (21-32) Anion Gap 9 mmol/L (5-15) Blood Urea Nitrogen 41 mg/dL (7-18) H Creatinine 2.1 MG/DL (0.55-1.30) H Estimat Glomerular Filtration Rate 31.1 mL/min (>60) Glucose Level 141 MG/DL (74-106) H Calcium Level 7.5 MG/DL (8.5-10.1) L Total Bilirubin 0.4 MG/DL (0.2-1.0) Aspartate Amino Transf (AST/SGOT) 10 U/L (15-37) L Alanine Aminotransferase (ALT/SGPT) 7 U/L (12-78) L Alkaline Phosphatase 44 U/L (46-116) L Total Protein 4.4 G/DL (6.4-8.2) L Albumin 1.3 G/DL (3.4-5.0) L Globulin 3.1 g/dL Albumin/Globulin Ratio 0.4 (1.0-2.7) L Amylase Level 116 U/L (25-115) H Lipase 471 U/L (73-393) H Current Medications Medications (Trade) Dose Ordered Sig/Arley Route PRN Reason Start Time Stop Time Status Last Admin Dose Admin Acetaminophen (Tylenol) 650 mg Q4H PRN ORAL Mild Pain (Pain Scale 1-3) 06/24/19 19:00 07/15/19 18:59 06/25/19 21:34 Albumin Human 50 ml @ 50 mls/hr DAILYPRN PRN IV For hypotension 06/25/19 09:00 07/25/19 08:59 Amlodipine Besylate (Norvasc) 5 mg DAILY ORAL 06/25/19 09:00 07/24/19 08:59 06/28/19 08:57 Amylase/Lipase/ Protease (Zenpep) 3 ea THREE TIMES A DAY ORAL 06/26/19 14:00 07/26/19 13:59 06/28/19 12:15 Aspirin (ASA) 81 mg DAILY ORAL 06/25/19 09:00 07/20/19 08:59 06/28/19 08:58 Bisacodyl (Dulcolax) 10 mg DAILYPRN PRN RECTAL Constipation 06/24/19 19:00 07/24/19 18:59 Dextrose (Dextrose 50%) 25 ml Q30M PRN IV Hypoglycemia 06/24/19 18:45 07/16/19 18:05 Dextrose (Dextrose 50%) 50 ml Q30M PRN IV Hypoglycemia 06/24/19 18:45 07/16/19 18:05 Insulin Aspart (NovoLOG) AC+HS SUBQ 06/24/19 21:00 07/20/19 17:59 06/28/19 12:13 Linezolid 300 ml @ 300 mls/hr EVERY 12 HOURS IVPB 06/26/19 21:00 07/03/19 20:59 06/28/19 08:57 Magnesium Hydroxide (Mom) 30 ml HSPRN PRN ORAL Constipation 06/24/19 21:00 07/15/19 20:59 Metoprolol Tartrate (Lopressor) 25 mg Q12HR ORAL 06/24/19 21:00 07/20/19 08:59 06/28/19 08:58 Ondansetron HCl (Zofran) 4 mg Q6H PRN IVP Nausea & Vomiting 06/24/19 19:00 07/24/19 18:59 Pantoprazole (Protonix) 40 mg DAILY ORAL 06/28/19 09:00 07/28/19 08:59 06/28/19 08:58 Piperacillin Sod/ Tazobactam Sod 3.375 gm/Sodium Chloride 110 ml @ 27.5 mls/hr EVERY 8 HOURS IVPB 06/25/19 14:00 06/30/19 13:59 06/28/19 05:20 Sodium Bicarbonate (NaHCO3) 650 mg THREE TIMES A DAY ORAL 06/26/19 13:00 07/26/19 12:59 06/28/19 12:14 Pranay Waller MD Jun 28, 2019 13:18
[2019-06-28 16:00] VITALS: BP 139/64
--- NOTE | 2019-06-28 19:30 | NUR ---
NURSE NOTES: Received report from Jf Martínez RN. Pt in stable condition, VS wnl. Will continue to monitor closely.
--- NOTE | 2019-06-28 20:15 | NUR ---
NURSE NOTES: Pt taken off floor to Nuclear Medicine for testing. Pt in stable condition, VS WNL. Pt has off tele order in place. Pt took O2 tank with him to testing.
--- NOTE | 2019-06-28 21:53 | Surgery Progress Note ---
Surgery Progress Note Subjective Additional Comments wbc scan Objective Last 24 Hour Vital Signs Date Time Temp Pulse Resp B/P (MAP) Pulse Ox O2 Delivery O2 Flow Rate FiO2 06/28/19 20:07 89 20 95 Nasal Cannula 3.0 32 06/28/19 20:07 95 Nasal Cannula 3.0 32 06/28/19 20:00 77 06/28/19 16:00 72 06/28/19 16:00 97.9 71 22 139/64 (89) 94 06/28/19 12:00 72 06/28/19 12:00 97.5 81 23 147/70 (95) 94 06/28/19 08:58 81 136/61 06/28/19 08:57 81 136/61 06/28/19 08:25 Nasal Cannula 3.0 06/28/19 08:00 98.1 81 22 136/61 (86) 93 06/28/19 08:00 81 06/28/19 07:36 82 20 96 Nasal Cannula 2.0 28 06/28/19 07:36 96 Nasal Cannula 2.0 28 06/28/19 04:00 70 06/28/19 04:00 97.7 78 20 126/66 (86) 95 06/28/19 00:00 75 06/28/19 00:00 97.9 77 20 121/62 (81) 97 06/27/19 23:29 77 16 95 Nasal Cannula 2.0 28 06/27/19 23:28 95 Nasal Cannula 2.0 28 06/27/19 22:00 1.0 I&O Intake and Output 06/27/19 06/28/19 19:00 07:00 Intake Total 140 ml 140 ml Output Total 1500 ml 1500 ml Balance -1360 ml -1360 ml Intake Oral 140 ml 140 ml Output Urine Total 1500 ml 1500 ml # Voids 3 3 # Bowel Movements 1 3 Dressing: other Wound: other Drains: other Cardiovascular: other Respiratory: other Abdomen: other Extremities: other Laboratory Tests Test 06/28/19 06:15 White Blood Count 18.6 K/UL (4.8-10.8) H Red Blood Count 3.40 M/UL (4.70-6.10) L Hemoglobin 9.8 G/DL (14.2-18.0) L Hematocrit 28.9 % (42.0-52.0) L Mean Corpuscular Volume 85 FL (80-99) Mean Corpuscular Hemoglobin 28.9 PG (27.0-31.0) Mean Corpuscular Hemoglobin Concent 34.0 G/DL (32.0-36.0) Red Cell Distribution Width 12.8 % (11.6-14.8) Platelet Count 195 K/UL (150-450) Mean Platelet Volume 8.1 FL (6.5-10.1) Neutrophils (%) (Auto) % (45.0-75.0) Lymphocytes (%) (Auto) % (20.0-45.0) Monocytes (%) (Auto) % (1.0-10.0) Eosinophils (%) (Auto) % (0.0-3.0) Basophils (%) (Auto) % (0.0-2.0) Differential Total Cells Counted 100 Neutrophils % (Manual) 92 % (45-75) H Lymphocytes % (Manual) 3 % (20-45) L Monocytes % (Manual) 4 % (1-10) Eosinophils % (Manual) 1 % (0-3) Basophils % (Manual) 0 % (0-2) Band Neutrophils 0 % (0-8) Platelet Estimate Adequate Platelet Morphology Normal Hypochromasia 1+ Sodium Level 138 MMOL/L (136-145) Potassium Level 4.1 MMOL/L (3.5-5.1) Chloride Level 107 MMOL/L (98-107) Carbon Dioxide Level 22 MMOL/L (21-32) Anion Gap 9 mmol/L (5-15) Blood Urea Nitrogen 41 mg/dL (7-18) H Creatinine 2.1 MG/DL (0.55-1.30) H Estimat Glomerular Filtration Rate 31.1 mL/min (>60) Glucose Level 141 MG/DL (74-106) H Calcium Level 7.5 MG/DL (8.5-10.1) L Total Bilirubin 0.4 MG/DL (0.2-1.0) Aspartate Amino Transf (AST/SGOT) 10 U/L (15-37) L Alanine Aminotransferase (ALT/SGPT) 7 U/L (12-78) L Alkaline Phosphatase 44 U/L (46-116) L Total Protein 4.4 G/DL (6.4-8.2) L Albumin 1.3 G/DL (3.4-5.0) L Globulin 3.1 g/dL Albumin/Globulin Ratio 0.4 (1.0-2.7) L Amylase Level 116 U/L (25-115) H Lipase 471 U/L (73-393) H Plan Problems: (1) Sacral decubitus ulcer Assessment & Plan: Patient identified to have a stage II sacral decubitus ulcer as well as incontinence associated dermatitis in the surrounding areas. Patient with diarrhea and sometimes sits for prolonged period times in stool. He has been changes frequently as possible by nursing staff and his been instructed to let staff know when incontinence so that they can assist him in changing. A is seen at bedside today with family available. We discussed current status and reviewed the wound together. We evaluated it cleaned and applied new dressings. We discussed the formation the etiology and the prognosis. Patient is able to move on his side on his own and is able to move in bed. He states he lays comfortably on his back but is instructed to return as much as possible. I have told him that the nursing staff and even myself and my team will assist him with turning as much as possible but given the fact that he is able to move on his own it would be strongly advised to turn as often as possible to alleviate pressure on his wound or develop new wounds. I explained to them that in laying in 1 position for prolonged period time can cause worsening cubitus ulcers or new ulcers to form. Long session was had with the patient and family and care plan was initiated. Patient is very amenable to care plan and cooperative. We will continue to monitor while inpatient and ensure improvemen Pt presents with two partial thickness pressure injuries R and L buttocks with surrounding Moisture Associated Skin Damage Partial thickness pressure injury R buttocks (L)2.2cm x (W)1cm. Base of wound is moist and viable with loose skin flap along edges. No odor or exudate. Periwound erythematous with denuded skin. Partial thickness pressure injury L buttocks. Base of wound is moist and viable. Edges are macerated. Non-blanching erythema with moisture denudement periwound.No exudate noted(L)2cm x (W)3cm.Scrotum erythematous with scattered satellite lesions at base of Scrotum. Both heels are boggy with non-blanching erythema. Pt denied tenderness when each heel individually palpated. Pt noted to be incontinent of loose B.M at start of visit. Pt also demonstrated ability to reposition self in bed but according to staff on unit pt is non- compliant and lacks motivation. PT informed of pressure injuries R and L buttocks , erythematous Scrotum and risks for further Skin decline. Pt educated on comorbidities that can contribute to wounds declining. Instructed pt to call for asst with toileting and encouraged to frequently reposition ,at least hourly while in bed. Pt declined to respond to verbal instructions. Spouse visited and updated on skin breakdown . Spouse also educated of risks for further skin breakdown if pt continues to be non-compliant with repositioning and toileting. Tx.Plan: Apply Moisture Barrier Paste to R and L buttocks. Cover with Optifoam drsg. Change every 3 days and prn. Apply Moisture Barrier Paste to Scrotum with each incontinence care. Encourage to reposition self at least hourly while in bed. Apply Cavilon Skin BArrier to each heels. Cover each heel with OPtifoam drsg. Change every 7 days and prn. Off-load heels with Pillow. (2) Incontinence associated dermatitis (3) Left upper quadrant abdominal mass Assessment & Plan: Telemetry pancreatic mass cystic large with infiltration around it worsening on recent CT. Discussed with GI and agree will need EUS but given elevated troponins and current cardiac status will await clearance and improvement prior to proceeding with EUS. (4) Acute pancreatitis Assessment & Plan: Lungs: Small posterior basilar pleural effusions are demonstrated. Consolidation versus atelectasis involving the lung bases bilaterally. Similar appearance on the prior occasion.. Liver: Unremarkable Gallbladder/biliary system: Gallbladder is absent. No biliary ductal dilatation seen.. Spleen: Unremarkable Pancreas: Pancreas is atrophic. Once again there is a large approximately 10 cm well-circumscribed cystic mass in the left upper quadrant associated with the tail the pancreas. This has been previously described and was seen on the last 2 CT examinations. This cyst is questionably slightly smaller. There is however moderately increased soft tissue stranding in the area surrounding the cyst anteriorly indicative of inflammation. In addition part of the splenic flexure which abuts the cyst and traverses the area of inflammation shows focal dilatation likely a localized inflammatory response or localized ileus. The degree of inflammation has significantly increased and is worse than both the prior occasions on 06/20/2019 or on 06/15/2019. In addition the degree of anasarca has increased. There is a small amount of free fluid within the abdomen which has also increased slightly since the last study. Kidneys/Bladder: No definite stone or hydronephrosis are identified. There is a probable right renal cyst again noted. The urinary bladder is nondistended. Rivero catheter in good position. Adrenal glands: Unremarkable Bowel: Unremarkable. Aorta/IVC: Aortoiliac calcifications are noted consistent with atherosclerotic disease. Peritoneum: There is mild free fluid present within the peritoneal cavity.. Bones: There is narrowing of intervertebral discs and accompanying endplate osteophyte formation. Hypertrophied facet joints also demonstrated. Generalized osteopenia noted. Moderate osteoarthritis of both hips demonstrated. IMPRESSION: Moderate increased inflammation surrounding a 10 cm cystic mass in the left upper quadrant. The cystic mass may be slightly smaller than on the previous CT examinations performed 06/20/2019 and 06/15/2019. 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 Cystic neoplasm is not excluded. Persistent small bilateral pleural effusions and underlying consolidation/atelectasis. Trace ascites. Worsening anasarca. Status post cholecystectomy. Arterial vascular disease. Benitez Sheppard Jun 28, 2019 21:53
--- NOTE | 2019-06-28 22:30 | NUR ---
NURSE NOTES: Pt returned to Telemetry floor without complications. Pt remains in stable condition and denies any pain or discomfort at this time. Twenty-one hundred meds given at this time. Will hold Zosyn (due at 2200) for 1 hr period while Zyvox runs per order. Will continue to monitor closely.
[2019-06-29] VITALS: BP 150/70
[2019-06-29 04:00] VITALS: BP 136/59
[2019-06-29] MEDS: Piperacillin/Tazobactam 3.375 GM in NS 110 ML IVPB SCH ×3 (05:22→22:03)
[2019-06-29] MEDS: NovoLOG Insulin Flexpen SUBQ SCH ×4 (06:00→20:55)
[2019-06-29 07:11] LABS: BASOPHILS % (AUTO) 0.9 % (0.0-2.0); EOSINOPHILS % (AUTO) 0.9 % (0.0-3.0); HEMATOCRIT 30.2 % (42.0-52.0); LYMPHOCYTES % (AUTO) 5.9 % (20.0-45.0); MEAN CORPUSCULAR VOLUME 86 FL (80-99); MONOCYTES % (AUTO) 7.3 % (1.0-10.0); NEUTROPHILS % (AUTO) 84.9 % (45.0-75.0); PLATELET COUNT 208 K/UL (150-450); RED CELL DISTRIBUTION WIDTH 12.9 % (11.6-14.8); WHITE BLOOD COUNT 13.4 K/UL (4.8-10.8)
--- NOTE | 2019-06-29 07:27 | NUR ---
HAND-OFF: Report given to Jf Martínez RN. Pt is stable condition.
[2019-06-29 07:40] LABS: ALANINE AMINOTRANSFERASE 14 U/L (12-78); ALBUMIN 1.4 G/DL (3.4-5.0); ALBUMIN/GLOBULIN RATIO 0.4 (1.0-2.7); ALKALINE PHOSPHATASE 48 U/L (46-116); AMYLASE 124 U/L (25-115); ANION GAP 8 mmol/L (5-15); ASPARTATE AMINO TRANSFERASE 12 U/L (15-37); BILIRUBIN,TOTAL 0.4 MG/DL (0.2-1.0); BLOOD UREA NITROGEN 33 mg/dL (7-18); CALCIUM 7.7 MG/DL (8.5-10.1); CARBON DIOXIDE 25 MMOL/L (21-32); CHLORIDE 107 MMOL/L (98-107); POTASSIUM 4.2 MMOL/L (3.5-5.1); SODIUM 139 MMOL/L (136-145)
[2019-06-29 08:00] VITALS: BP 131/83
--- NOTE | 2019-06-29 08:41 | General Progress Note ---
Assessment/Plan Problem List: (1) Acute kidney injury superimposed on CKD ICD Codes: N17.9 - Acute kidney failure, unspecified; N18.9 - Chronic kidney disease, unspecified SNOMED: 58570454, 417848253 (2) Sepsis ICD Codes: A41.9 - Sepsis, unspecified organism SNOMED: 49572375 Qualifiers: Qualified Codes: A41.9 - Sepsis, unspecified organism; R65.21 - Severe sepsis with septic shock; N17.9 - Acute kidney failure, unspecified (3) Elevated troponin ICD Codes: R79.89 - Other specified abnormal findings of blood chemistry SNOMED: 365819584, 320108554, 860431838 Status: stable Assessment/Plan: anemia esophagitis CM pancreatic pseudocyst CAD obesity sepsis on low fat diet patient will need EUS but given elevated trop will hold for now repeat CT reviewed abx per id fu cardiology ad nephrology repeat labs in am ppi pancreolipase Subjective ROS Limited/Unobtainable: Yes Allergies: Coded Allergies: No Known Allergies (Unverified , 06/02/19) Objective Last 24 Hour Vital Signs Date Time Temp Pulse Resp B/P (MAP) Pulse Ox O2 Delivery O2 Flow Rate FiO2 06/29/19 08:31 Nasal Cannula 3.0 06/29/19 04:00 97.9 75 20 136/59 (84) 98 06/29/19 04:00 74 06/29/19 00:00 77 06/29/19 00:00 97.5 81 18 150/70 (96) 98 06/28/19 22:49 82 158/69 06/28/19 22:00 1.5 06/28/19 21:00 Nasal Cannula 2.5 06/28/19 20:07 89 20 95 Nasal Cannula 3.0 32 06/28/19 20:07 95 Nasal Cannula 3.0 32 06/28/19 20:00 77 06/28/19 16:00 72 06/28/19 16:00 97.9 71 22 139/64 (89) 94 06/28/19 12:00 72 06/28/19 12:00 97.5 81 23 147/70 (95) 94 06/28/19 08:58 81 136/61 06/28/19 08:57 81 136/61 Intake and Output 06/28/19 06/29/19 19:00 07:00 Intake Total 720 ml Output Total 1500 ml Balance -780 ml Intake Oral 720 ml Output Urine Total 1500 ml # Bowel Movements 1 1 Laboratory Tests 06/29/19 06:25: White Blood Count 13.4H, Red Blood Count 3.50L, Hemoglobin 10.0L, Hematocrit 30.2L, Mean Corpuscular Volume 86, Mean Corpuscular Hemoglobin 28.6, Mean Corpuscular Hemoglobin Concent 33.1, Red Cell Distribution Width 12.9, Platelet Count 208, Mean Platelet Volume 9.3, Neutrophils (%) (Auto) 84.9H, Lymphocytes ( %) (Auto) 5.9L, Monocytes (%) (Auto) 7.3, Eosinophils (%) (Auto) 0.9, Basophils (%) (Auto) 0.9, Sodium Level 139, Potassium Level 4.2, Chloride Level 107, Carbon Dioxide Level 25, Anion Gap 8, Blood Urea Nitrogen 33H, Creatinine 2.0H, Estimat Glomerular Filtration Rate 32.9, Glucose Level 162H, Calcium Level 7.7L , Total Bilirubin 0.4, Aspartate Amino Transf (AST/SGOT) 12L, Alanine Aminotransferase (ALT/SGPT) 14, Alkaline Phosphatase 48, Total Protein 4.8L, Albumin 1.4L, Globulin 3.4, Albumin/Globulin Ratio 0.4L, Amylase Level 124H, Lipase 519H Height (Feet): 5 Height (Inches): 7.00 Weight (Pounds): 244 General Appearance: alert EENT: normal ENT inspection Neck: supple Cardiovascular: normal rate Respiratory/Chest: decreased breath sounds Abdomen: normal bowel sounds, non tender, soft Extremities: non-tender Peyman Akbar MD Jun 29, 2019 08:41
[2019-06-29] MEDS: Pancrelipase Dr Cap ORAL SCH ×3 (09:00→17:49)
--- NOTE | 2019-06-29 09:10 | Hematology/Onc Progress Note ---
Assessment/Plan Assessment/Plan Assessment and recs: # Thrombocytopenia - potential causes multifactorial, in this case due to sepsis , less likely due to heparin --> Hep panel and HIV are negative --> US abd to evaluate for cirrhosis and hsm ordered and none noted --> Peripheral smear ordered to evaluate for blasts /schistocytes --> abx and other meds have been reviewed --> ok for ppx if plt >50k w/ either heparin or lovenox --> Transfuse if Plt < 20k and fever, or if Plt < 10k without fever --> plt trend 41-->49k-->63k-->110-->208 # Leukocytosis with hx of infection --> on vanc/zosyn -> ct a/p reviewed --> wbc 15-->30-->24-->13.4 --> pending source eval per id # 10.7 cm unilocular cystic structure in the left upper quadrant retroperitoneal , corresponding to findings reported on recent CT scan. Most likely represents a pancreatic pseudocyst. --> continue to monitor as per gi --> repeat us or ct in short order, weeks to months to re-eval --> repeat ct showed mild enlargement of cyst/mass, will need further repeat imaging --> may need indium scan # DM, ? history of CVA who presented to [facility] ED with nausea,vomiting. --> a1c goal <8, accuchecks qac/qhs # Septic shock, POA, possible biliary source --> cont ICU level of care --> cont IV hydration --> on abx, as per pulm/cc # Acute hypoxic resp failure without hypercarbia --> Intermittent BiPAP --> continue inhaled bronchodilators # NSTEMI, peak trop of 2, likely due to demand ischemia --> Stop heparin due to thrombocytopenia --> duplex lower legs is neg --> HIT neg --> per cards # Acute kidney injury on CKD, possible ATN --> Nephrology following # Acute pancreatitis --> hydration # HTN --> cont to hold BP meds # DM type 2 --> ISS # Dvt ppx scds Appreciate consultation and [place] Rn Subjective Allergies: Coded Allergies: No Known Allergies (Unverified , 06/02/19) Subjective 06/20: awake and alert, no overnight events, v mask 3/2: plts remain low, in the 40s, off anticaog, [place] rn, pending labs 06/23: is on broad spectrum abx, fluncon, ctx, flagyl, vanc, no f/c 06/24: on tele, no overnight events, wbc at 29.8, plt count improved 06/25: ct a/p is still pending given elev wbc, off pressors in tele 06/26: wbc continues to be elev, ct a/p reviewed, potentially smaller pseudocyst, may need indium scan 06/28: s/p wbc scan, on tele, no acute distress, nc Objective Objective Current Medications Medications (Trade) Dose Ordered Sig/Arley Route PRN Reason Start Time Stop Time Status Last Admin Dose Admin Acetaminophen (Tylenol) 650 mg Q4H PRN ORAL Mild Pain (Pain Scale 1-3) 06/24/19 19:00 07/15/19 18:59 06/29/19 03:41 Albumin Human 50 ml @ 50 mls/hr DAILYPRN PRN IV For hypotension 06/25/19 09:00 07/25/19 08:59 Amlodipine Besylate (Norvasc) 5 mg DAILY ORAL 06/25/19 09:00 07/24/19 08:59 06/28/19 08:57 Amylase/Lipase/ Protease (Zenpep) 3 ea THREE TIMES A DAY ORAL 06/26/19 14:00 07/26/19 13:59 06/28/19 17:50 Aspirin (ASA) 81 mg DAILY ORAL 06/25/19 09:00 07/20/19 08:59 06/28/19 08:58 Bisacodyl (Dulcolax) 10 mg DAILYPRN PRN RECTAL Constipation 06/24/19 19:00 07/24/19 18:59 Dextrose (Dextrose 50%) 25 ml Q30M PRN IV Hypoglycemia 06/24/19 18:45 07/16/19 18:05 Dextrose (Dextrose 50%) 50 ml Q30M PRN IV Hypoglycemia 06/24/19 18:45 07/16/19 18:05 Insulin Aspart (NovoLOG) AC+HS SUBQ 06/24/19 21:00 07/20/19 17:59 06/29/19 06:00 Linezolid 300 ml @ 300 mls/hr EVERY 12 HOURS IVPB 06/26/19 21:00 07/03/19 20:59 06/28/19 22:48 Magnesium Hydroxide (Mom) 30 ml HSPRN PRN ORAL Constipation 06/24/19 21:00 07/15/19 20:59 Metoprolol Tartrate (Lopressor) 25 mg Q12HR ORAL 06/24/19 21:00 07/20/19 08:59 06/28/19 22:49 Ondansetron HCl (Zofran) 4 mg Q6H PRN IVP Nausea & Vomiting 06/24/19 19:00 07/24/19 18:59 Pantoprazole (Protonix) 40 mg DAILY ORAL 06/28/19 09:00 07/28/19 08:59 06/28/19 08:58 Piperacillin Sod/ Tazobactam Sod 3.375 gm/Sodium Chloride 110 ml @ 27.5 mls/hr EVERY 8 HOURS IVPB 06/28/19 14:00 07/03/19 13:59 06/29/19 05:22 Sodium Bicarbonate (NaHCO3) 650 mg THREE TIMES A DAY ORAL 06/26/19 13:00 07/26/19 12:59 06/28/19 17:50 Last 24 Hour Vital Signs Date Time Temp Pulse Resp B/P (MAP) Pulse Ox O2 Delivery O2 Flow Rate FiO2 06/29/19 08:31 Nasal Cannula 3.0 06/29/19 04:00 97.9 75 20 136/59 (84) 98 06/29/19 04:00 74 06/29/19 00:00 77 06/29/19 00:00 97.5 81 18 150/70 (96) 98 06/28/19 22:49 82 158/69 06/28/19 22:00 1.5 06/28/19 21:00 Nasal Cannula 2.5 06/28/19 20:07 89 20 95 Nasal Cannula 3.0 32 06/28/19 20:07 95 Nasal Cannula 3.0 32 06/28/19 20:00 77 06/28/19 16:00 72 06/28/19 16:00 97.9 71 22 139/64 (89) 94 06/28/19 12:00 72 06/28/19 12:00 97.5 81 23 147/70 (95) 94 06/28/19 08:58 81 136/61 06/28/19 08:57 81 136/61 06/28/19 08:25 Nasal Cannula 3.0 06/28/19 08:00 98.1 81 22 136/61 (86) 93 06/28/19 08:00 81 06/28/19 07:36 82 20 96 Nasal Cannula 2.0 28 06/28/19 07:36 96 Nasal Cannula 2.0 28 06/28/19 04:00 70 06/28/19 04:00 97.7 78 20 126/66 (86) 95 06/28/19 00:00 75 06/28/19 00:00 97.9 77 20 121/62 (81) 97 06/27/19 23:29 77 16 95 Nasal Cannula 2.0 28 06/27/19 23:28 95 Nasal Cannula 2.0 28 06/27/19 22:00 1.0 06/27/19 21:00 Nasal Cannula 1.0 06/27/19 20:53 85 138/60 06/27/19 20:00 84 06/27/19 20:00 98.2 82 20 130/82 (98) 97 06/27/19 16:00 76 06/27/19 16:00 97.5 73 18 135/67 (89) 97 06/27/19 12:00 97.2 75 20 131/54 (79) 98 06/27/19 09:15 79 133/69 06/27/19 09:15 79 133/69 Intake and Output 06/28/19 06/29/19 19:00 07:00 Intake Total 720 ml Output Total 1500 ml Balance -780 ml Intake Oral 720 ml Output Urine Total 1500 ml # Bowel Movements 1 1 Labs Test 06/27/19 04:55 06/27/19 07:50 06/28/19 06:15 06/29/19 06:25 White Blood Count 20.9 K/UL (4.8-10.8) 18.6 K/UL (4.8-10.8) 13.4 K/UL (4.8-10.8) Red Blood Count 3.45 M/UL (4.70-6.10) 3.40 M/UL (4.70-6.10) 3.50 M/UL (4.70-6.10) Hemoglobin 10.1 G/DL (14.2-18.0) 9.8 G/DL (14.2-18.0) 10.0 G/DL (14.2-18.0) Hematocrit 29.4 % (42.0-52.0) 28.9 % (42.0-52.0) 30.2 % (42.0-52.0) Mean Corpuscular Volume 85 FL (80-99) 85 FL (80-99) 86 FL (80-99) Mean Corpuscular Hemoglobin 29.2 PG (27.0-31.0) 28.9 PG (27.0-31.0) 28.6 PG (27.0-31.0) Mean Corpuscular Hemoglobin Concent 34.3 G/DL (32.0-36.0) 34.0 G/DL (32.0-36.0) 33.1 G/DL (32.0-36.0) Red Cell Distribution Width 13.0 % (11.6-14.8) 12.8 % (11.6-14.8) 12.9 % (11.6-14.8) Platelet Count 152 K/UL (150-450) 195 K/UL (150-450) 208 K/UL (150-450) Mean Platelet Volume 8.3 FL (6.5-10.1) 8.1 FL (6.5-10.1) 9.3 FL (6.5-10.1) Neutrophils (%) (Auto) % (45.0-75.0) % (45.0-75.0) 84.9 % (45.0-75.0) Lymphocytes (%) (Auto) % (20.0-45.0) % (20.0-45.0) 5.9 % (20.0-45.0) Monocytes (%) (Auto) % (1.0-10.0) % (1.0-10.0) 7.3 % (1.0-10.0) Eosinophils (%) (Auto) % (0.0-3.0) % (0.0-3.0) 0.9 % (0.0-3.0) Basophils (%) (Auto) % (0.0-2.0) % (0.0-2.0) 0.9 % (0.0-2.0) Differential Total Cells Counted 100 100 Neutrophils % (Manual) 92 % (45-75) 92 % (45-75) Lymphocytes % (Manual) 4 % (20-45) 3 % (20-45) Monocytes % (Manual) 3 % (1-10) 4 % (1-10) Eosinophils % (Manual) 1 % (0-3) 1 % (0-3) Basophils % (Manual) 0 % (0-2) 0 % (0-2) Band Neutrophils 0 % (0-8) 0 % (0-8) Platelet Estimate Adequate Adequate Platelet Morphology Normal Normal Hypochromasia 1+ 1+ Sodium Level 137 MMOL/L (136-145) 138 MMOL/L (136-145) 139 MMOL/L (136-145) Potassium Level 3.4 MMOL/L (3.5-5.1) 4.1 MMOL/L (3.5-5.1) 4.2 MMOL/L (3.5-5.1) Chloride Level 106 MMOL/L (98-107) 107 MMOL/L (98-107) 107 MMOL/L (98-107) Carbon Dioxide Level 18 MMOL/L (21-32) 22 MMOL/L (21-32) 25 MMOL/L (21-32) Anion Gap 13 mmol/L (5-15) 9 mmol/L (5-15) 8 mmol/L (5-15) Blood Urea Nitrogen 46 mg/dL (7-18) 41 mg/dL (7-18) 33 mg/dL (7-18) Creatinine 2.5 MG/DL (0.55-1.30) 2.1 MG/DL (0.55-1.30) 2.0 MG/DL (0.55-1.30) Estimat Glomerular Filtration Rate 25.4 mL/min (>60) 31.1 mL/min (>60) 32.9 mL/min (>60) Glucose Level 146 MG/DL (74-106) 141 MG/DL (74-106) 162 MG/DL (74-106) Calcium Level 7.4 MG/DL (8.5-10.1) 7.5 MG/DL (8.5-10.1) 7.7 MG/DL (8.5-10.1) Total Bilirubin 0.4 MG/DL (0.2-1.0) 0.4 MG/DL (0.2-1.0) 0.4 MG/DL (0.2-1.0) Aspartate Amino Transf (AST/SGOT) 13 U/L (15-37) 10 U/L (15-37) 12 U/L (15-37) Alanine Aminotransferase (ALT/SGPT) 16 U/L (12-78) 7 U/L (12-78) 14 U/L (12-78) Alkaline Phosphatase 44 U/L (46-116) 44 U/L (46-116) 48 U/L (46-116) Pro-B-Type Natriuretic Peptide 5995 pg/mL (0-125) Total Protein 4.6 G/DL (6.4-8.2) 4.4 G/DL (6.4-8.2) 4.8 G/DL (6.4-8.2) Albumin 1.4 G/DL (3.4-5.0) 1.3 G/DL (3.4-5.0) 1.4 G/DL (3.4-5.0) Globulin 3.2 g/dL 3.1 g/dL 3.4 g/dL Albumin/Globulin Ratio 0.4 (1.0-2.7) 0.4 (1.0-2.7) 0.4 (1.0-2.7) Amylase Level 210 U/L (25-115) 116 U/L (25-115) 124 U/L (25-115) Lipase 330 U/L (73-393) 471 U/L (73-393) 519 U/L (73-393) Troponin I 0.034 ng/mL (0.000-0.056) Height (Feet): 5 Height (Inches): 7.00 Weight (Pounds): 244 Objective PE General Appearance: no apparent distress, alert HEENT: atraumatic, anicteric Neck: normal alignment, supple Respiratory/Chest: lungs clear, normal breath sounds, no respiratory distress. NC+ Cardiovascular/Chest: normal rate, regular rhythm Abdomen: non tender, soft, no organomegaly Extremities: non-tender, normal inspection Skin Exam: warm/dry, cyanotic Neurologic: alert Kleynberg,Kana L. MD Jun 29, 2019 09:10
[2019-06-29] MEDS: Sodium Bicarbonate 650mg Tab ORAL SCH ×3 (09:43→17:49)
[2019-06-29] MEDS: Aspirin Baby 81mg ORAL SCH (09:43)
[2019-06-29 12:00] VITALS: BP 153/87
--- NOTE | 2019-06-29 12:03 | Diagnostic Imaging Report ---
EXAM: XR Chest, 1 View CLINICAL HISTORY: COUGH TECHNIQUE: Frontal view of the chest. COMPARISON: Chest x-ray 06/25/19 FINDINGS: Lungs: Hypoventilatory lungs. Left lower lobe airspace disease and possible small pleural effusion. Mild central vascular congestion. Pleural space: Query small left pleural effusion. No pneumothorax. Heart: Mild cardiomegaly. Mediastinum: Unremarkable. Bones/joints: Unremarkable. IMPRESSION: Hypoventilatory lungs. Left lower lobe airspace disease and possible small pleural effusion. Mild central vascular congestion. Query CHF versus pneumonia.
--- NOTE | 2019-06-29 12:37 | General Progress Note ---
Assessment/Plan Status: stable Assessment/Plan: 73 y/o M with PMH HTN, IDDM, ? history of CVA who presented to [facility] ED with nausea,vomiting. On admission pt w/acute respiratory failure, initially admitted to ICU, was placed on BiPAP, pt improved and now on NC. Pt was found to have Klebsiella bacteremia, ID consulted and pt was started on zosyn and zyvox. WBC's elevated on 06/25 for which repeat BCx were drawn which are negative at this time. Pt w/elevated lipase, found to have acute pancreatitis, CT abd revealed pancreatic pseudocyst for which GI was consulted, pt will need EUS once more stable. Pt also w/NSTEMI, acute on chronic heart failure, cardio consulted and plan for stress test once more stable. #Klebsiella bacteremia #Leukocytosis - downtrending #? infected pancreatic pseudocyst, ? aspiration pna/HCAP vs atx, arf -BCx on admission pt was found to be in septic shock, now resolved, BCx + for klebsiella bacteremia -BCx / NGTD -BCx / NGTD -UCx / NGTD -on 06/25 pt w/leukocytosis, repeat BCx / NGTD -CT A/P on 06/25: with mild improvement of pseudocyst. no abscess or acute pathology identified. -indium scan ordered per ID -ID following: zosyn, zyvox #Chronic systolic CHF, HFrEF 40% TTE with EF ~40% Continue MTP 25 BID Cardiology following Start aldactone when Cr < 1.5 D/w Dr. Reed, stress test klsunday NPO past MN #acute hypoxic resp failure without hypercarbia - stable intermittent BiPAP continue inhaled bronchodilators Pulm/CCM following bipap prn and QHS #NSTEMI, peak trop of 2, likely due to demand ischemia was initially placed on heparin on admission, now off heparin due to thrombocytopenia Cardiology following #acute kidney injury on CKD, possible ATN - downtrending s/p IV hydration cont. to monitor BMP avoid nephrotoxic meds scr with improvement Nephrology following #acute pancreatitis #Pancreatic Pseudocyst low fat diet PPI Pancreaolipase GI following: d/w GI, pt will need EUS when more stable #Thrombocytopenia - resolved #Rule out HIT etiology likely multifactorial, likely due to sepsis HIT panel pending Transfuse if Plt < 20k and fever, or if Plt < 10k without fever cont to monitor daily CBC Hematology following - ok for DVT ppx w/heparin or lovenox when plts >50k #Hypokalemia, hypomagnesemia - resolved replaced, cont. to monitor, replace PRN #lactic acidosis #HTN cont to hold BP meds #DM type 2 ISS #Septic shock - resolved on admission pt was in ICU, now improved off pressors cont. to monitor VTE PPx - SCDs Full Code Time spent on encounter: 35 mins, >50% on counseling, coordination of care. Time of note doesn't reflect time of encounter. Subjective Constitutional: Denies: no symptoms, chills, diaphoresis, fever, malaise, weakness, other HEENT: Denies: no symptoms, eye pain, blurred vision, tearing, double vision, ear pain, ear discharge, nose pain, nose congestion, throat pain, throat swelling, mouth pain, mouth swelling, other Cardiovascular: Denies: no symptoms, chest pain, edema, irregular heart rate, lightheadedness, palpitations, syncope, other Respiratory: Denies: no symptoms, cough, orthopnea, shortness of breath, SOB with excertion, SOB at rest, sputum, stridor, wheezing, other Gastrointestinal/Abdominal: Denies: no symptoms, abdomen distended, abdominal pain, black stools, tarry stools, blood in stool, constipated, diarrhea, difficulty swallowing, nausea, poor appetite, poor fluid intake, rectal bleeding , vomiting, other Genitourinary: Denies: no symptoms, burning, discharge, frequency, flank pain, hematuria, incontinence, pain, urgency, other Neurologic/Psychiatric: Denies: no symptoms, anxiety, depressed, emotional problems, headache, numbness, paresthesia, pre-existing deficit, seizure, tingling, tremors, weakness, other Endocrine: Denies: no symptoms, excessive sweating, flushing, intolerance to cold, intolerance to heat, increased hunger, increased thirst, increased urine, unexplained weight gain, unexplained weight loss, other Hematologic/Lymphatic: Denies: no symptoms, anemia, easy bleeding, easy bruising, other Allergies: Coded Allergies: No Known Allergies (Unverified , 06/02/19) Subjective Patient with no concerns at this time, no acute events overnight. Objective Last 24 Hour Vital Signs Date Time Temp Pulse Resp B/P (MAP) Pulse Ox O2 Delivery O2 Flow Rate FiO2 06/29/19 12:23 94 Nasal Cannula 3.0 32 06/29/19 12:22 79 20 94 Nasal Cannula 3.0 32 06/29/19 09:43 74 136/59 06/29/19 09:43 74 136/59 06/29/19 08:31 Nasal Cannula 3.0 06/29/19 04:00 97.9 75 20 136/59 (84) 98 06/29/19 04:00 74 06/29/19 00:00 77 06/29/19 00:00 97.5 81 18 150/70 (96) 98 06/28/19 22:49 82 158/69 06/28/19 22:00 1.5 06/28/19 21:00 Nasal Cannula 2.5 06/28/19 20:07 89 20 95 Nasal Cannula 3.0 32 06/28/19 20:07 95 Nasal Cannula 3.0 32 06/28/19 20:00 77 06/28/19 16:00 72 06/28/19 16:00 97.9 71 22 139/64 (89) 94 Intake and Output 06/28/19 06/29/19 19:00 07:00 Intake Total 720 ml Output Total 1500 ml Balance -780 ml Intake Oral 720 ml Output Urine Total 1500 ml # Bowel Movements 1 1 Laboratory Tests 06/29/19 06:25: White Blood Count 13.4H, Red Blood Count 3.50L, Hemoglobin 10.0L, Hematocrit 30.2L, Mean Corpuscular Volume 86, Mean Corpuscular Hemoglobin 28.6, Mean Corpuscular Hemoglobin Concent 33.1, Red Cell Distribution Width 12.9, Platelet Count 208, Mean Platelet Volume 9.3, Neutrophils (%) (Auto) 84.9H, Lymphocytes ( %) (Auto) 5.9L, Monocytes (%) (Auto) 7.3, Eosinophils (%) (Auto) 0.9, Basophils (%) (Auto) 0.9, Sodium Level 139, Potassium Level 4.2, Chloride Level 107, Carbon Dioxide Level 25, Anion Gap 8, Blood Urea Nitrogen 33H, Creatinine 2.0H, Estimat Glomerular Filtration Rate 32.9, Glucose Level 162H, Calcium Level 7.7L , Total Bilirubin 0.4, Aspartate Amino Transf (AST/SGOT) 12L, Alanine Aminotransferase (ALT/SGPT) 14, Alkaline Phosphatase 48, Total Protein 4.8L, Albumin 1.4L, Globulin 3.4, Albumin/Globulin Ratio 0.4L, Amylase Level 124H, Lipase 519H Height (Feet): 5 Height (Inches): 7.00 Weight (Pounds): 244 Objective General Appearance: NAD, alert, awake HEENT: NCAT, PERRL/EOMI Neck: supple Cardiovascular: RRR, normal S1 S2 Respiratory/Chest: decreased breath sounds, otherwise no accessory muscle usage or conversational dyspnea Abdomen: normal bowel sounds, non tender, soft Extremities: non-tender, no edema Nery Galindo M.D. Jun 29, 2019 12:37
--- NOTE | 2019-06-29 12:41 | Surgery Progress Note ---
Surgery Progress Note Subjective Additional Comments leukocytosis improving pending wbc scan results Objective Last 24 Hour Vital Signs Date Time Temp Pulse Resp B/P (MAP) Pulse Ox O2 Delivery O2 Flow Rate FiO2 06/29/19 12:23 94 Nasal Cannula 3.0 32 06/29/19 12:22 79 20 94 Nasal Cannula 3.0 32 06/29/19 09:43 74 136/59 06/29/19 09:43 74 136/59 06/29/19 08:31 Nasal Cannula 3.0 06/29/19 04:00 97.9 75 20 136/59 (84) 98 06/29/19 04:00 74 06/29/19 00:00 77 06/29/19 00:00 97.5 81 18 150/70 (96) 98 06/28/19 22:49 82 158/69 06/28/19 22:00 1.5 06/28/19 21:00 Nasal Cannula 2.5 06/28/19 20:07 89 20 95 Nasal Cannula 3.0 32 06/28/19 20:07 95 Nasal Cannula 3.0 32 06/28/19 20:00 77 06/28/19 16:00 72 06/28/19 16:00 97.9 71 22 139/64 (89) 94 I&O Intake and Output 06/28/19 06/29/19 19:00 07:00 Intake Total 720 ml Output Total 1500 ml Balance -780 ml Intake Oral 720 ml Output Urine Total 1500 ml # Bowel Movements 1 1 Dressing: other Wound: other Cardiovascular: RSR Respiratory: decreased breath sounds Abdomen: soft, present bowel sounds Extremities: no cyanosis Laboratory Tests Test 06/29/19 06:25 White Blood Count 13.4 K/UL (4.8-10.8) H Red Blood Count 3.50 M/UL (4.70-6.10) L Hemoglobin 10.0 G/DL (14.2-18.0) L Hematocrit 30.2 % (42.0-52.0) L Mean Corpuscular Volume 86 FL (80-99) Mean Corpuscular Hemoglobin 28.6 PG (27.0-31.0) Mean Corpuscular Hemoglobin Concent 33.1 G/DL (32.0-36.0) Red Cell Distribution Width 12.9 % (11.6-14.8) Platelet Count 208 K/UL (150-450) Mean Platelet Volume 9.3 FL (6.5-10.1) Neutrophils (%) (Auto) 84.9 % (45.0-75.0) H Lymphocytes (%) (Auto) 5.9 % (20.0-45.0) L Monocytes (%) (Auto) 7.3 % (1.0-10.0) Eosinophils (%) (Auto) 0.9 % (0.0-3.0) Basophils (%) (Auto) 0.9 % (0.0-2.0) Sodium Level 139 MMOL/L (136-145) Potassium Level 4.2 MMOL/L (3.5-5.1) Chloride Level 107 MMOL/L (98-107) Carbon Dioxide Level 25 MMOL/L (21-32) Anion Gap 8 mmol/L (5-15) Blood Urea Nitrogen 33 mg/dL (7-18) H Creatinine 2.0 MG/DL (0.55-1.30) H Estimat Glomerular Filtration Rate 32.9 mL/min (>60) Glucose Level 162 MG/DL (74-106) H Calcium Level 7.7 MG/DL (8.5-10.1) L Total Bilirubin 0.4 MG/DL (0.2-1.0) Aspartate Amino Transf (AST/SGOT) 12 U/L (15-37) L Alanine Aminotransferase (ALT/SGPT) 14 U/L (12-78) Alkaline Phosphatase 48 U/L (46-116) Total Protein 4.8 G/DL (6.4-8.2) L Albumin 1.4 G/DL (3.4-5.0) L Globulin 3.4 g/dL Albumin/Globulin Ratio 0.4 (1.0-2.7) L Amylase Level 124 U/L (25-115) H Lipase 519 U/L (73-393) H Plan Problems: (1) Sacral decubitus ulcer Assessment & Plan: Patient identified to have a stage II sacral decubitus ulcer as well as incontinence associated dermatitis in the surrounding areas. Patient with diarrhea and sometimes sits for prolonged period times in stool. He has been changes frequently as possible by nursing staff and his been instructed to let staff know when incontinence so that they can assist him in changing. A is seen at bedside today with family available. We discussed current status and reviewed the wound together. We evaluated it cleaned and applied new dressings. We discussed the formation the etiology and the prognosis. Patient is able to move on his side on his own and is able to move in bed. He states he lays comfortably on his back but is instructed to return as much as possible. I have told him that the nursing staff and even myself and my team will assist him with turning as much as possible but given the fact that he is able to move on his own it would be strongly advised to turn as often as possible to alleviate pressure on his wound or develop new wounds. I explained to them that in laying in 1 position for prolonged period time can cause worsening cubitus ulcers or new ulcers to form. Long session was had with the patient and family and care plan was initiated. Patient is very amenable to care plan and cooperative. We will continue to monitor while inpatient and ensure improvemen Pt presents with two partial thickness pressure injuries R and L buttocks with surrounding Moisture Associated Skin Damage Partial thickness pressure injury R buttocks (L)2.2cm x (W)1cm. Base of wound is moist and viable with loose skin flap along edges. No odor or exudate. Periwound erythematous with denuded skin. Partial thickness pressure injury L buttocks. Base of wound is moist and viable. Edges are macerated. Non-blanching erythema with moisture denudement periwound.No exudate noted(L)2cm x (W)3cm.Scrotum erythematous with scattered satellite lesions at base of Scrotum. Both heels are boggy with non-blanching erythema. Pt denied tenderness when each heel individually palpated. Pt noted to be incontinent of loose B.M at start of visit. Pt also demonstrated ability to reposition self in bed but according to staff on unit pt is non- compliant and lacks motivation. PT informed of pressure injuries R and L buttocks , erythematous Scrotum and risks for further Skin decline. Pt educated on comorbidities that can contribute to wounds declining. Instructed pt to call for asst with toileting and encouraged to frequently reposition ,at least hourly while in bed. Pt declined to respond to verbal instructions. Spouse visited and updated on skin breakdown . Spouse also educated of risks for further skin breakdown if pt continues to be non-compliant with repositioning and toileting. Tx.Plan: Apply Moisture Barrier Paste to R and L buttocks. Cover with Optifoam drsg. Change every 3 days and prn. Apply Moisture Barrier Paste to Scrotum with each incontinence care. Encourage to reposition self at least hourly while in bed. Apply Cavilon Skin BArrier to each heels. Cover each heel with OPtifoam drsg. Change every 7 days and prn. Off-load heels with Pillow. (2) Incontinence associated dermatitis (3) Left upper quadrant abdominal mass Assessment & Plan: Telemetry pancreatic mass cystic large with infiltration around it worsening on recent CT. Discussed with GI and agree will need EUS but given elevated troponins and current cardiac status will await clearance and improvement prior to proceeding with EUS. (4) Acute pancreatitis Assessment & Plan: Lungs: Small posterior basilar pleural effusions are demonstrated. Consolidation versus atelectasis involving the lung bases bilaterally. Similar appearance on the prior occasion.. Liver: Unremarkable Gallbladder/biliary system: Gallbladder is absent. No biliary ductal dilatation seen.. Spleen: Unremarkable Pancreas: Pancreas is atrophic. Once again there is a large approximately 10 cm well-circumscribed cystic mass in the left upper quadrant associated with the tail the pancreas. This has been previously described and was seen on the last 2 CT examinations. This cyst is questionably slightly smaller. There is however moderately increased soft tissue stranding in the area surrounding the cyst anteriorly indicative of inflammation. In addition part of the splenic flexure which abuts the cyst and traverses the area of inflammation shows focal dilatation likely a localized inflammatory response or localized ileus. The degree of inflammation has significantly increased and is worse than both the prior occasions on 06/20/2019 or on 06/15/2019. In addition the degree of anasarca has increased. There is a small amount of free fluid within the abdomen which has also increased slightly since the last study. Kidneys/Bladder: No definite stone or hydronephrosis are identified. There is a probable right renal cyst again noted. The urinary bladder is nondistended. Rivero catheter in good position. Adrenal glands: Unremarkable Bowel: Unremarkable. Aorta/IVC: Aortoiliac calcifications are noted consistent with atherosclerotic disease. Peritoneum: There is mild free fluid present within the peritoneal cavity.. Bones: There is narrowing of intervertebral discs and accompanying endplate osteophyte formation. Hypertrophied facet joints also demonstrated. Generalized osteopenia noted. Moderate osteoarthritis of both hips demonstrated. IMPRESSION: Moderate increased inflammation surrounding a 10 cm cystic mass in the left upper quadrant. The cystic mass may be slightly smaller than on the previous CT examinations performed 06/20/2019 and 06/15/2019. 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 Cystic neoplasm is not excluded. Persistent small bilateral pleural effusions and underlying consolidation/atelectasis. Trace ascites. Worsening anasarca. Status post cholecystectomy. Arterial vascular disease. Benitez Sheppard Jun 29, 2019 12:41
[2019-06-29 16:00] VITALS: BP 140/60
--- NOTE | 2019-06-29 16:41 | Pulmonology Progress Note ---
Assessment/Plan Problems: (1) Sepsis (2) Hypoxia (3) Left upper quadrant abdominal mass (4) Thrombocytopenia Assessment & Plan: Recovered Hit Ab panel neg (5) Acute kidney injury superimposed on CKD Assessment/Plan CT chest Needs an outpatient PSG and PFT PRN O2 PRN HHN's Monitor volumes and renal function ABx per ID, F/U Cx's F/U cards recs ---> plan for stress test next week F/U GI recs ASPIRATION precautions DVT Px: SCD's FC Subjective Allergies: Coded Allergies: No Known Allergies (Unverified , 06/02/19) Subjective AFVSS on 2-3L Weak cough no SOB no FC no CP CXR with low lung volumes and BiB opacities Objective Last 24 Hour Vital Signs Date Time Temp Pulse Resp B/P (MAP) Pulse Ox O2 Delivery O2 Flow Rate FiO2 06/29/19 12:23 94 Nasal Cannula 3.0 32 06/29/19 12:22 79 20 94 Nasal Cannula 3.0 32 06/29/19 12:00 84 06/29/19 12:00 97.9 72 20 153/87 (109) 100 06/29/19 09:43 74 136/59 06/29/19 09:43 74 136/59 06/29/19 08:31 Nasal Cannula 3.0 06/29/19 08:00 98.1 82 19 131/83 (99) 98 06/29/19 08:00 75 06/29/19 04:00 97.9 75 20 136/59 (84) 98 06/29/19 04:00 74 06/29/19 00:00 77 06/29/19 00:00 97.5 81 18 150/70 (96) 98 06/28/19 22:49 82 158/69 06/28/19 22:00 1.5 06/28/19 21:00 Nasal Cannula 2.5 06/28/19 20:07 89 20 95 Nasal Cannula 3.0 32 06/28/19 20:07 95 Nasal Cannula 3.0 32 06/28/19 20:00 77 Intake and Output 06/28/19 06/29/19 19:00 07:00 Intake Total 720 ml Output Total 1500 ml Balance -780 ml Intake Oral 720 ml Output Urine Total 1500 ml # Bowel Movements 1 1 Objective Ob M General Appearance: no acute distress, other - ob M HEENT: normocephalic, atraumatic, anicteric, mucous membranes moist Respiratory/Chest: crackles/rales Cardiovascular: normal peripheral pulses, normal rate, regular rhythm Abdomen: normal bowel sounds, soft, non tender, no organomegaly, non distended , no mass Extremities: no cyanosis, no clubbing, no edema Laboratory Tests 06/29/19 06:25: White Blood Count 13.4H, Red Blood Count 3.50L, Hemoglobin 10.0L, Hematocrit 30.2L, Mean Corpuscular Volume 86, Mean Corpuscular Hemoglobin 28.6, Mean Corpuscular Hemoglobin Concent 33.1, Red Cell Distribution Width 12.9, Platelet Count 208, Mean Platelet Volume 9.3, Neutrophils (%) (Auto) 84.9H, Lymphocytes ( %) (Auto) 5.9L, Monocytes (%) (Auto) 7.3, Eosinophils (%) (Auto) 0.9, Basophils (%) (Auto) 0.9, Sodium Level 139, Potassium Level 4.2, Chloride Level 107, Carbon Dioxide Level 25, Anion Gap 8, Blood Urea Nitrogen 33H, Creatinine 2.0H, Estimat Glomerular Filtration Rate 32.9, Glucose Level 162H, Calcium Level 7.7L , Total Bilirubin 0.4, Aspartate Amino Transf (AST/SGOT) 12L, Alanine Aminotransferase (ALT/SGPT) 14, Alkaline Phosphatase 48, Total Protein 4.8L, Albumin 1.4L, Globulin 3.4, Albumin/Globulin Ratio 0.4L, Amylase Level 124H, Lipase 519H Current Medications Medications (Trade) Dose Ordered Sig/Arley Route PRN Reason Start Time Stop Time Status Last Admin Dose Admin Acetaminophen (Tylenol) 650 mg Q4H PRN ORAL Mild Pain (Pain Scale 1-3) 06/24/19 19:00 07/15/19 18:59 06/29/19 03:41 Albumin Human 50 ml @ 50 mls/hr DAILYPRN PRN IV For hypotension 06/25/19 09:00 07/25/19 08:59 Amlodipine Besylate (Norvasc) 5 mg DAILY ORAL 06/25/19 09:00 07/24/19 08:59 06/29/19 09:43 Amylase/Lipase/ Protease (Zenpep) 3 ea THREE TIMES A DAY ORAL 06/26/19 14:00 07/26/19 13:59 06/29/19 13:17 Aspirin (ASA) 81 mg DAILY ORAL 06/25/19 09:00 07/20/19 08:59 06/29/19 09:43 Bisacodyl (Dulcolax) 10 mg DAILYPRN PRN RECTAL Constipation 06/24/19 19:00 07/24/19 18:59 Dextrose (Dextrose 50%) 25 ml Q30M PRN IV Hypoglycemia 06/24/19 18:45 07/16/19 18:05 Dextrose (Dextrose 50%) 50 ml Q30M PRN IV Hypoglycemia 06/24/19 18:45 07/16/19 18:05 Insulin Aspart (NovoLOG) AC+HS SUBQ 06/24/19 21:00 07/20/19 17:59 06/29/19 06:00 Linezolid 300 ml @ 300 mls/hr EVERY 12 HOURS IVPB 06/26/19 21:00 07/03/19 20:59 06/29/19 09:43 Magnesium Hydroxide (Mom) 30 ml HSPRN PRN ORAL Constipation 06/24/19 21:00 07/15/19 20:59 Metoprolol Tartrate (Lopressor) 25 mg Q12HR ORAL 06/24/19 21:00 07/20/19 08:59 06/29/19 09:43 Ondansetron HCl (Zofran) 4 mg Q6H PRN IVP Nausea & Vomiting 06/24/19 19:00 07/24/19 18:59 Pantoprazole (Protonix) 40 mg DAILY ORAL 06/28/19 09:00 07/28/19 08:59 06/29/19 09:43 Piperacillin Sod/ Tazobactam Sod 3.375 gm/Sodium Chloride 110 ml @ 27.5 mls/hr EVERY 8 HOURS IVPB 06/28/19 14:00 07/03/19 13:59 06/29/19 14:00 Sodium Bicarbonate (NaHCO3) 650 mg THREE TIMES A DAY ORAL 06/26/19 13:00 07/26/19 12:59 06/29/19 13:17 Homero Moran MD Jun 29, 2019 16:41
[2019-06-29] MEDS ORDERED: Albuterol/Ipratropium 3ml neb HHN PRN (16:43)
--- NOTE | 2019-06-29 19:01 | Cardiology Progress Note ---
Assessment/Plan Status: stable, progressing Assessment/Plan Assessment/Plan 73 year old man with HTN, IDDM, ? history of CVA who presented to [facility] with nausea,vomiting and hypertensive urgency and SOB -Empiric ABX and IV fluids -> WBC now normal, no fevers, cultures negative -BiPAP prn, continue pulmonary rehab/toilet/CPT, serial chest x ray -V/Q and LE US negative for thrombus, CXR with cardiomegaly and interstitial prominence -Echocardiogram with LVEF 40% and PA pressure 55 mmHG and elevated right atrial pressures. -Continue diuresis to lower filling pressures, recommend repeating limited Echocardiogram once dry weight achieved to re-evaluate pulmonary/filling pressures -Continue low dose metoprolol 25 mg BID for systolic dysfunction and titrate -Start aldactone when creatinine <1.5, currently ARB/ACEI held due to ZARINA/ATN -Stress test prior to discharge when pulmonary status stable. Ordered for SUNDAY -Defer cardiac cath given lack of chest pain and poor renal function -D/c troponin check, d/c anticoagulation given low platelets, no indication for transfusion no bleeding noted Subjective Cardiovascular: Reports: no symptoms Respiratory: Reports: no symptoms Gastrointestinal/Abdominal: Reports: no symptoms Genitourinary: Reports: no symptoms Subjective Patient stable on floors, no acute events, vitals stable, PICC removed, Plan for stress test sunday, H/H stable no bleeding. WBC scan results pending Objective Last 24 Hour Vital Signs Date Time Temp Pulse Resp B/P (MAP) Pulse Ox O2 Delivery O2 Flow Rate FiO2 06/29/19 16:00 97.6 80 20 140/60 (86) 98 06/29/19 12:23 94 Nasal Cannula 3.0 32 06/29/19 12:22 79 20 94 Nasal Cannula 3.0 32 06/29/19 12:00 84 06/29/19 12:00 97.9 72 20 153/87 (109) 100 06/29/19 09:43 74 136/59 06/29/19 09:43 74 136/59 06/29/19 08:31 Nasal Cannula 3.0 06/29/19 08:00 98.1 82 19 131/83 (99) 98 06/29/19 08:00 75 06/29/19 04:00 97.9 75 20 136/59 (84) 98 06/29/19 04:00 74 3/8/20 00:00 77 06/29/19 00:00 97.5 81 18 150/70 (96) 98 06/28/19 22:49 82 158/69 06/28/19 22:00 1.5 06/28/19 21:00 Nasal Cannula 2.5 06/28/19 20:07 89 20 95 Nasal Cannula 3.0 32 06/28/19 20:07 95 Nasal Cannula 3.0 32 06/28/19 20:00 77 General Appearance: no apparent distress, alert EENT: PERRL/EOMI, normal ENT inspection, TMs normal, pharynx normal Neck: non-tender, normal alignment, supple, normal inspection, no JVD Rhythm: NSR Cardiovascular: normal peripheral pulses, normal rate, regular rhythm Respiratory/Chest: chest wall non-tender, lungs clear, normal breath sounds Abdomen: normal bowel sounds, non tender, soft, no organomegaly Extremities: normal range of motion, non-tender, normal inspection Neurologic: cigarette machine filler II-XII grossly normal, no motor/sensory deficits Intake and Output 06/28/19 06/29/19 19:00 07:00 Intake Total 720 ml Output Total 1500 ml Balance -780 ml Intake Oral 720 ml Output Urine Total 1500 ml # Bowel Movements 1 1 Laboratory Tests Test 06/29/19 06:25 White Blood Count 13.4 K/UL (4.8-10.8) H Red Blood Count 3.50 M/UL (4.70-6.10) L Hemoglobin 10.0 G/DL (14.2-18.0) L Hematocrit 30.2 % (42.0-52.0) L Mean Corpuscular Volume 86 FL (80-99) Mean Corpuscular Hemoglobin 28.6 PG (27.0-31.0) Mean Corpuscular Hemoglobin Concent 33.1 G/DL (32.0-36.0) Red Cell Distribution Width 12.9 % (11.6-14.8) Platelet Count 208 K/UL (150-450) Mean Platelet Volume 9.3 FL (6.5-10.1) Neutrophils (%) (Auto) 84.9 % (45.0-75.0) H Lymphocytes (%) (Auto) 5.9 % (20.0-45.0) L Monocytes (%) (Auto) 7.3 % (1.0-10.0) Eosinophils (%) (Auto) 0.9 % (0.0-3.0) Basophils (%) (Auto) 0.9 % (0.0-2.0) Sodium Level 139 MMOL/L (136-145) Potassium Level 4.2 MMOL/L (3.5-5.1) Chloride Level 107 MMOL/L (98-107) Carbon Dioxide Level 25 MMOL/L (21-32) Anion Gap 8 mmol/L (5-15) Blood Urea Nitrogen 33 mg/dL (7-18) H Creatinine 2.0 MG/DL (0.55-1.30) H Estimat Glomerular Filtration Rate 32.9 mL/min (>60) Glucose Level 162 MG/DL (74-106) H Calcium Level 7.7 MG/DL (8.5-10.1) L Total Bilirubin 0.4 MG/DL (0.2-1.0) Aspartate Amino Transf (AST/SGOT) 12 U/L (15-37) L Alanine Aminotransferase (ALT/SGPT) 14 U/L (12-78) Alkaline Phosphatase 48 U/L (46-116) Total Protein 4.8 G/DL (6.4-8.2) L Albumin 1.4 G/DL (3.4-5.0) L Globulin 3.4 g/dL Albumin/Globulin Ratio 0.4 (1.0-2.7) L Amylase Level 124 U/L (25-115) H Lipase 519 U/L (73-393) H Paul Reed MD Jun 29, 2019 19:01
[2019-06-29] MEDS ORDERED: Lexiscan 0.4mg/5ml syringe IV PRN (19:03)
--- NOTE | 2019-06-29 19:30 | NUR ---
NURSE NOTES: Received report from GANGA Rhoades. Patient is awake, lying in semi badillo's; resting comfortably. A/Ox4. Denies pain at this time. No signs of acute distress noted. Checked IV site and flushed. No erythema, bleeding or infiltration noted. Bed at lowest position, brakes on, siderails x3. Call light within reach. Will continue to monitor. Addendum: 06/30/19 at 0016 by Sharda Lin RN On contreras catheter draining well to gravity.
--- NOTE | 2019-06-29 19:38 | Nephrology Progress Note ---
Assessment/Plan Plan #acute kidney injury - on baseline CKD- Fena 0.4% suggestive of pre-renal aztemia- however UA with sediments and RBC concerning for developing ATN- patient with baseline diabetic nephropathy -Cr uptrended today #sepsis #acute pancreatitis- improved # Hypokalemia, hypopmagnesemia - repleted #lactic acidosis- improved #HTN- stable #DM- controlled #NSTEMI #hypernatremia - improved #eliana on CKD - baseline Cr in mid to high 1s- now worsening in the setting of sepsis and possibly vanco induced #metabolic acidosis - due to renal insufficiency - Cr up to 2.0 - monitor off IVF - monitor Cr - dc sodium bicarb 650mg TID #sepsis - antibiotics per ID- zosyn and zyvox, avoid nephrotoxic antibiotics - avoid supratherapeutic vanco level - monitor WBC #troponemia - heparin on hold for thrombocytopenia - HIT? - cardiology eval #HTN - hold lisinopril - resume amldipine 5mg daily - metop 25mg BID #DM - hold metformin - ISS Subjective Subjective Breathing stable today - on NC Cr down o 2.0 on zosyn and zyvox BP stable Objective Objective Last 24 Hour Vital Signs Date Time Temp Pulse Resp B/P (MAP) Pulse Ox O2 Delivery O2 Flow Rate FiO2 06/29/19 16:00 97.6 80 20 140/60 (86) 98 06/29/19 12:23 94 Nasal Cannula 3.0 32 06/29/19 12:22 79 20 94 Nasal Cannula 3.0 32 06/29/19 12:00 84 06/29/19 12:00 97.9 72 20 153/87 (109) 100 06/29/19 09:43 74 136/59 06/29/19 09:43 74 136/59 06/29/19 08:31 Nasal Cannula 3.0 06/29/19 08:00 98.1 82 19 131/83 (99) 98 06/29/19 08:00 75 06/29/19 04:00 97.9 75 20 136/59 (84) 98 06/29/19 04:00 74 06/29/19 00:00 77 06/29/19 00:00 97.5 81 18 150/70 (96) 98 06/28/19 22:49 82 158/69 06/28/19 22:00 1.5 06/28/19 21:00 Nasal Cannula 2.5 06/28/19 20:07 89 20 95 Nasal Cannula 3.0 32 06/28/19 20:07 95 Nasal Cannula 3.0 32 06/28/19 20:00 77 Intake and Output 06/28/19 06/29/19 19:00 07:00 Intake Total 720 ml Output Total 1500 ml Balance -780 ml Intake Oral 720 ml Output Urine Total 1500 ml # Bowel Movements 1 1 Laboratory Tests 06/29/19 06:25: White Blood Count 13.4H, Red Blood Count 3.50L, Hemoglobin 10.0L, Hematocrit 30.2L, Mean Corpuscular Volume 86, Mean Corpuscular Hemoglobin 28.6, Mean Corpuscular Hemoglobin Concent 33.1, Red Cell Distribution Width 12.9, Platelet Count 208, Mean Platelet Volume 9.3, Neutrophils (%) (Auto) 84.9H, Lymphocytes ( %) (Auto) 5.9L, Monocytes (%) (Auto) 7.3, Eosinophils (%) (Auto) 0.9, Basophils (%) (Auto) 0.9, Sodium Level 139, Potassium Level 4.2, Chloride Level 107, Carbon Dioxide Level 25, Anion Gap 8, Blood Urea Nitrogen 33H, Creatinine 2.0H, Estimat Glomerular Filtration Rate 32.9, Glucose Level 162H, Calcium Level 7.7L , Total Bilirubin 0.4, Aspartate Amino Transf (AST/SGOT) 12L, Alanine Aminotransferase (ALT/SGPT) 14, Alkaline Phosphatase 48, Total Protein 4.8L, Albumin 1.4L, Globulin 3.4, Albumin/Globulin Ratio 0.4L, Amylase Level 124H, Lipase 519H Height (Feet): 5 Height (Inches): 7.00 Weight (Pounds): 244 Objective General Appearance: Alert - no distress Lines, tubes and drains: peripheral HEENT: normocephalic, atraumatic Neck: non-tender, normal alignment Respiratory/Chest: chest wall non-tender, lungs clear, normal breath sounds Cardiovascular/Chest: normal rate, regular rhythm Abdomen: normal bowel sounds, non tender, soft Extremities: non-tender, normal inspection Skin Exam: normal pigmentation, no diaphoresis Gerson Salgado M.D. Jun 29, 2019 19:38
[2019-06-29 20:00] VITALS: BP 138/64
[2019-06-30] VITALS: BP 143/63
--- NOTE | 2019-06-30 | NUR ---
NURSE NOTES: Placed on NPO.
--- NOTE | 2019-06-30 01:44 | NUR ---
NURSE NOTES: Resting throughout the night. No significant change of condition noted. Will continue to monitor.
[2019-06-30 04:00] VITALS: BP 145/65
[2019-06-30] MEDS: Piperacillin/Tazobactam 3.375 GM in NS 110 ML IVPB SCH ×3 (05:14→21:53)
[2019-06-30] MEDS: NovoLOG Insulin Flexpen SUBQ SCH ×4 (05:23→20:28)
--- NOTE | 2019-06-30 06:22 | Hematology/Onc Progress Note ---
Assessment/Plan Assessment/Plan Assessment and recs: # Leukocytosis with hx of infection, hx klebsiella bacteremia, sepsis, leukocytosis, ? infected pancreatic pseudocyst, ? aspiration pna/HCAP vs atx, arf, CT abdomen and pelvis noted --> on vanc/zosyn -> ct a/p reviewed --> wbc 15-->30-->24-->13.4 --> pending source eval per id # 10.7 cm unilocular cystic structure in the left upper quadrant retroperitoneal , corresponding to findings reported on recent CT scan. Most likely represents a pancreatic pseudocyst. --> continue to monitor as per gi --> repeat us or ct in short order, weeks to months to re-eval --> repeat ct showed mild enlargement of cyst/mass, will need further repeat imaging --> may need indium scan # Thrombocytopenia - potential causes multifactorial, in this case due to sepsis , less likely due to heparin --> Hep panel and HIV are negative --> US abd to evaluate for cirrhosis and hsm ordered and none noted --> Peripheral smear ordered to evaluate for blasts /schistocytes --> abx and other meds have been reviewed --> ok for ppx if plt >50k w/ either heparin or lovenox --> Transfuse if Plt < 20k and fever, or if Plt < 10k without fever --> plt trend 41-->49k-->63k-->110-->208 # DM, ? history of CVA who [place] [facility] [place]omiting. --> a1c goal <8, accuchecks qac/qhs # Septic shock, POA, possible biliary source --> cont ICU level of care --> cont IV hydration --> on abx, as per pulm/cc # Acute hypoxic resp failure without hypercarbia --> Intermittent BiPAP --> continue inhaled bronchodilators # NSTEMI, peak trop of 2, likely due to demand ischemia --> Stop heparin due to thrombocytopenia --> duplex lower legs is neg --> HIT neg --> per cards # Acute kidney injury on CKD, possible ATN --> Nephrology following # Acute pancreatitis --> hydration # HTN --> cont to hold BP meds # DM type 2 --> ISS # Dvt ppx scds Appreciate consultation and dw Rn Subjective Constitutional: Denies: no symptoms, chills, fever, malaise, weakness, other HEENT: Denies: no symptoms, eye pain, blurred vision, tearing, double vision, ear pain, ear discharge, nose pain, nose congestion, throat pain, throat swelling, mouth pain, mouth swelling, other Cardiovascular: Denies: no symptoms, chest pain, edema, irregular heart rate, lightheadedness, palpitations, syncope, other Respiratory: Denies: no symptoms, cough, shortness of breath, SOB with excertion, SOB at rest, sputum, wheezing, other Gastrointestinal/Abdominal: Denies: no symptoms, abdomen distended, abdominal pain, black stools, tarry stools, blood in stool, constipated, diarrhea, difficulty swallowing, nausea, poor appetite, poor fluid intake, rectal bleeding , vomiting, other Genitourinary: Denies: no symptoms, burning, discharge, frequency, flank pain, hematuria, incontinence, pain, urgency, other Neurologic/Psychiatric: Denies: no symptoms, anxiety, depressed, emotional problems, headache, numbness, paresthesia, pre-existing deficit, seizure, tingling, tremors, weakness, other Endocrine: Denies: no symptoms, excessive sweating, flushing, intolerance to cold, intolerance to heat, increased hunger, increased thirst, increased urine, unexplained weight gain, unexplained weight loss, other Allergies: Coded Allergies: No Known Allergies (Unverified , 06/02/19) Subjective 06/20: awake and alert, no overnight events, v mask 06/22: plts remain low, in the 40s, off anticaog, [place] rn, pending labs 06/23: is on broad spectrum abx, fluncon, ctx, flagyl, vanc, no f/c 06/24: on tele, no overnight events, wbc at 29.8, plt count improved 06/25: ct a/p is still pending given elev wbc, off pressors in tele 06/26: wbc continues to be elev, ct a/p reviewed, potentially smaller pseudocyst, may need indium scan 06/28: s/p wbc scan, on tele, no acute distress, nc 06/29: no bleeding or chills, labs re noted, no night sweats, cbc and bmp ordered Objective Objective Current Medications Medications (Trade) Dose Ordered Sig/Arley Route PRN Reason Start Time Stop Time Status Last Admin Dose Admin Acetaminophen (Tylenol) 650 mg Q4H PRN ORAL Mild Pain (Pain Scale 1-3) 06/24/19 19:00 07/15/19 18:59 06/29/19 03:41 Albumin Human 50 ml @ 50 mls/hr DAILYPRN PRN IV For hypotension 06/25/19 09:00 07/25/19 08:59 Albuterol/ Ipratropium (Albuterol/ Ipratropium) 3 ml Q4H PRN HHN Shortness of Breath 06/29/19 16:43 07/04/19 16:42 Amlodipine Besylate (Norvasc) 5 mg DAILY ORAL 06/25/19 09:00 07/24/19 08:59 06/29/19 09:43 Amylase/Lipase/ Protease (Zenpep) 3 ea THREE TIMES A DAY ORAL 06/26/19 14:00 07/26/19 13:59 06/29/19 17:49 Aspirin (ASA) 81 mg DAILY ORAL 06/25/19 09:00 07/20/19 08:59 06/29/19 09:43 Bisacodyl (Dulcolax) 10 mg DAILYPRN PRN RECTAL Constipation 06/24/19 19:00 07/24/19 18:59 Dextrose (Dextrose 50%) 25 ml Q30M PRN IV Hypoglycemia 06/24/19 18:45 07/16/19 18:05 Dextrose (Dextrose 50%) 50 ml Q30M PRN IV Hypoglycemia 06/24/19 18:45 07/16/19 18:05 Insulin Aspart (NovoLOG) AC+HS SUBQ 06/24/19 21:00 07/20/19 17:59 06/30/19 05:23 Linezolid 300 ml @ 300 mls/hr EVERY 12 HOURS IVPB 06/26/19 21:00 07/03/19 20:59 06/29/19 20:55 Magnesium Hydroxide (Mom) 30 ml HSPRN PRN ORAL Constipation 06/24/19 21:00 07/15/19 20:59 Metoprolol Tartrate (Lopressor) 25 mg Q12HR ORAL 06/24/19 21:00 07/20/19 08:59 06/29/19 20:55 Ondansetron HCl (Zofran) 4 mg Q6H PRN IVP Nausea & Vomiting 06/24/19 19:00 07/24/19 18:59 Pantoprazole (Protonix) 40 mg DAILY ORAL 06/28/19 09:00 07/28/19 08:59 06/29/19 09:43 Piperacillin Sod/ Tazobactam Sod 3.375 gm/Sodium Chloride 110 ml @ 27.5 mls/hr EVERY 8 HOURS IVPB 06/28/19 14:00 07/03/19 13:59 06/30/19 05:14 Regadenoson (Lexiscan) 0.4 mg ONCE PRN IV cardiology 06/29/19 19:03 07/01/19 23:59 Last 24 Hour Vital Signs Date Time Temp Pulse Resp B/P (MAP) Pulse Ox O2 Delivery O2 Flow Rate FiO2 06/30/19 04:00 97.3 76 19 145/65 (91) 96 06/30/19 04:00 85 06/30/19 00:00 74 06/30/19 00:00 97.5 76 19 143/63 (89) 94 06/29/19 22:00 3.0 06/29/19 21:00 Nasal Cannula 3.0 06/29/19 20:55 82 138/64 06/29/19 20:00 98.1 82 18 138/64 (88) 98 06/29/19 20:00 83 06/29/19 19:53 84 20 98 Nasal Cannula 3.0 32 06/29/19 19:53 98 Nasal Cannula 3.0 32 06/29/19 16:00 79 06/29/19 16:00 97.6 80 20 140/60 (86) 98 06/29/19 12:23 94 Nasal Cannula 3.0 32 06/29/19 12:22 79 20 94 Nasal Cannula 3.0 32 06/29/19 12:00 84 06/29/19 12:00 97.9 72 20 153/87 (109) 100 06/29/19 09:43 74 136/59 06/29/19 09:43 74 136/59 06/29/19 08:31 Nasal Cannula 3.0 06/29/19 08:00 98.1 82 19 131/83 (99) 98 06/29/19 08:00 75 06/29/19 04:00 97.9 75 20 136/59 (84) 98 06/29/19 04:00 74 06/29/19 00:00 77 06/29/19 00:00 97.5 81 18 150/70 (96) 98 06/28/19 22:49 82 158/69 06/28/19 22:00 1.5 06/28/19 21:00 Nasal Cannula 2.5 06/28/19 20:07 89 20 95 Nasal Cannula 3.0 32 06/28/19 20:07 95 Nasal Cannula 3.0 32 06/28/19 20:00 77 06/28/19 16:00 72 06/28/19 16:00 97.9 71 22 139/64 (89) 94 06/28/19 12:00 72 06/28/19 12:00 97.5 81 23 147/70 (95) 94 06/28/19 08:58 81 136/61 06/28/19 08:57 81 136/61 06/28/19 08:25 Nasal Cannula 3.0 06/28/19 08:00 98.1 81 22 136/61 (86) 93 06/28/19 08:00 81 06/28/19 07:36 82 20 96 Nasal Cannula 2.0 28 06/28/19 07:36 96 Nasal Cannula 2.0 28 Intake and Output 06/29/19 06/30/19 19:00 07:00 Intake Total 60 ml Output Total 1900 ml 1000 ml Balance -1900 ml -940 ml Intake Oral 60 ml Output Urine Total 1900 ml 1000 ml # Bowel Movements 1 1 Labs Test 06/27/19 07:50 06/28/19 06:15 06/29/19 06:25 Troponin I 0.034 ng/mL (0.000-0.056) White Blood Count 18.6 K/UL (4.8-10.8) 13.4 K/UL (4.8-10.8) Red Blood Count 3.40 M/UL (4.70-6.10) 3.50 M/UL (4.70-6.10) Hemoglobin 9.8 G/DL (14.2-18.0) 10.0 G/DL (14.2-18.0) Hematocrit 28.9 % (42.0-52.0) 30.2 % (42.0-52.0) Mean Corpuscular Volume 85 FL (80-99) 86 FL (80-99) Mean Corpuscular Hemoglobin 28.9 PG (27.0-31.0) 28.6 PG (27.0-31.0) Mean Corpuscular Hemoglobin Concent 34.0 G/DL (32.0-36.0) 33.1 G/DL (32.0-36.0) Red Cell Distribution Width 12.8 % (11.6-14.8) 12.9 % (11.6-14.8) Platelet Count 195 K/UL (150-450) 208 K/UL (150-450) Mean Platelet Volume 8.1 FL (6.5-10.1) 9.3 FL (6.5-10.1) Neutrophils (%) (Auto) % (45.0-75.0) 84.9 % (45.0-75.0) Lymphocytes (%) (Auto) % (20.0-45.0) 5.9 % (20.0-45.0) Monocytes (%) (Auto) % (1.0-10.0) 7.3 % (1.0-10.0) Eosinophils (%) (Auto) % (0.0-3.0) 0.9 % (0.0-3.0) Basophils (%) (Auto) % (0.0-2.0) 0.9 % (0.0-2.0) Differential Total Cells Counted 100 Neutrophils % (Manual) 92 % (45-75) Lymphocytes % (Manual) 3 % (20-45) Monocytes % (Manual) 4 % (1-10) Eosinophils % (Manual) 1 % (0-3) Basophils % (Manual) 0 % (0-2) Band Neutrophils 0 % (0-8) Platelet Estimate Adequate Platelet Morphology Normal Hypochromasia 1+ Sodium Level 138 MMOL/L (136-145) 139 MMOL/L (136-145) Potassium Level 4.1 MMOL/L (3.5-5.1) 4.2 MMOL/L (3.5-5.1) Chloride Level 107 MMOL/L (98-107) 107 MMOL/L (98-107) Carbon Dioxide Level 22 MMOL/L (21-32) 25 MMOL/L (21-32) Anion Gap 9 mmol/L (5-15) 8 mmol/L (5-15) Blood Urea Nitrogen 41 mg/dL (7-18) 33 mg/dL (7-18) Creatinine 2.1 MG/DL (0.55-1.30) 2.0 MG/DL (0.55-1.30) Estimat Glomerular Filtration Rate 31.1 mL/min (>60) 32.9 mL/min (>60) Glucose Level 141 MG/DL (74-106) 162 MG/DL (74-106) Calcium Level 7.5 MG/DL (8.5-10.1) 7.7 MG/DL (8.5-10.1) Total Bilirubin 0.4 MG/DL (0.2-1.0) 0.4 MG/DL (0.2-1.0) Aspartate Amino Transf (AST/SGOT) 10 U/L (15-37) 12 U/L (15-37) Alanine Aminotransferase (ALT/SGPT) 7 U/L (12-78) 14 U/L (12-78) Alkaline Phosphatase 44 U/L (46-116) 48 U/L (46-116) Total Protein 4.4 G/DL (6.4-8.2) 4.8 G/DL (6.4-8.2) Albumin 1.3 G/DL (3.4-5.0) 1.4 G/DL (3.4-5.0) Globulin 3.1 g/dL 3.4 g/dL Albumin/Globulin Ratio 0.4 (1.0-2.7) 0.4 (1.0-2.7) Amylase Level 116 U/L (25-115) 124 U/L (25-115) Lipase 471 U/L (73-393) 519 U/L (73-393) Height (Feet): 5 Height (Inches): 7.00 Weight (Pounds): 250 Objective PE General Appearance: no apparent distress, alert HEENT: atraumatic, anicteric Neck: normal alignment, supple Respiratory/Chest: lungs clear, normal breath sounds, no respiratory distress. NC+ Cardiovascular/Chest: normal rate, regular rhythm Abdomen: non tender, soft, no organomegaly Extremities: non-tender, normal inspection Skin Exam: warm/dry, cyanotic Neurologic: alert Gu: ++ Kana Goyal MD Jun 30, 2019 06:22
--- NOTE | 2019-06-30 07:00 | NUR ---
HAND-OFF: Report given to GANGA Rhoades. Plan of care endorsed.
[2019-06-30 07:51] VITALS: BP 139/67
--- NOTE | 2019-06-30 08:00 | NUR ---
NURSE NOTES: Pt awake/alert, breathing easily on 1 lpm nasal cannula, denies SOB and denies pain at this time. Vital signs stable with SR @ 80 with occ PVC on monitor. IV access left hand 22 ga dlushed with 10 ml NS and locked. Pt currently NPO for stress test. Pt has contreras cath, patent draining clear straw urine into collection bag at foot of bed. Rectal tube in place. Bed left in low position, side rails up x 3 and call light left near pt's hand.
--- NOTE | 2019-06-30 08:49 | NUR ---
CASE MANAGEMENT:REVIEW 06/30/19 SI: SEPSIS. RESPIRATORY FAILURE NSTEMI. ACUTE PANCREATITIS 97.0 78 20 139/67 96% ON 3L/NC WBC+13.4 H/H-10.0/30.2 BUN+33 CR+2.0 CA-7.7 IS: IV LINEZOLID Q12 IV ZOSYN Q8HRS IVF@75/HR NAHC03 PO TID NORVASC PO QD ASA PO QD IV PROTONIX QD LOPRESSOR PO Q12 : TELEMETRY DCP: PATIENT IS FROM HOME PLAN: STRESS TEST TODAY
[2019-06-30] MEDS: Aspirin Baby 81mg ORAL SCH (09:17)
[2019-06-30] MEDS: Pancrelipase Dr Cap ORAL SCH ×3 (09:17→17:33)
--- NOTE | 2019-06-30 09:46 | Cardiology Progress Note ---
Assessment/Plan Status: stable Assessment/Plan Assessment/Plan 73 year old man with HTN, IDDM, ? history of CVA who presented to [facility] [place] [facility] with nausea,vomiting and hypertensive urgency and SOB -Empiric ABX and IV fluids -> WBC now normal, no fevers, cultures negative -BiPAP prn, continue pulmonary rehab/toilet/CPT, serial chest x ray -V/Q and LE US negative for thrombus, CXR with cardiomegaly and interstitial prominence -Echocardiogram with LVEF 40% and PA pressure 55 mmHG and elevated right atrial pressures. -Continue diuresis to lower filling pressures, recommend repeating limited Echocardiogram once dry weight achieved to re-evaluate pulmonary/filling pressures -Continue low dose metoprolol 25 mg BID for systolic dysfunction and titrate -Start aldactone when creatinine <1.5, currently ARB/ACEI held due to ZARINA/ATN -Stress test prior to discharge when pulmonary status stable. Ordered for SUNDAY -Defer cardiac cath given lack of chest pain and poor renal function -D/c troponin check, d/c anticoagulation given low platelets, no indication for transfusion no bleeding noted Subjective Cardiovascular: Reports: no symptoms Respiratory: Reports: no symptoms Gastrointestinal/Abdominal: Reports: no symptoms Genitourinary: Reports: no symptoms Subjective Patient stable on floors, no acute events, vitals stable, PICC removed, Plan for stress test sunday, H/H stable no bleeding. WBC scan results pending Objective Last 24 Hour Vital Signs Date Time Temp Pulse Resp B/P (MAP) Pulse Ox O2 Delivery O2 Flow Rate FiO2 06/30/19 09:17 78 139/67 06/30/19 09:00 Nasal Cannula 3.0 06/30/19 09:00 78 139/67 06/30/19 07:52 78 06/30/19 07:51 97.0 78 20 139/67 (91) 96 06/30/19 04:00 97.3 76 19 145/65 (91) 96 06/30/19 04:00 85 06/30/19 00:00 74 06/30/19 00:00 97.5 76 19 143/63 (89) 94 06/29/19 22:00 3.0 06/29/19 21:00 Nasal Cannula 3.0 06/29/19 20:55 82 138/64 06/29/19 20:00 98.1 82 18 138/64 (88) 98 06/29/19 20:00 83 06/29/19 19:53 84 20 98 Nasal Cannula 3.0 32 06/29/19 19:53 98 Nasal Cannula 3.0 32 06/29/19 16:00 79 06/29/19 16:00 97.6 80 20 140/60 (86) 98 06/29/19 12:23 94 Nasal Cannula 3.0 32 06/29/19 12:22 79 20 94 Nasal Cannula 3.0 32 06/29/19 12:00 84 06/29/19 12:00 97.9 72 20 153/87 (109) 100 General Appearance: no apparent distress, alert EENT: PERRL/EOMI, normal ENT inspection, TMs normal, pharynx normal Neck: non-tender, normal alignment, supple, normal inspection, no JVD Rhythm: NSR Cardiovascular: normal peripheral pulses, normal rate, regular rhythm Respiratory/Chest: chest wall non-tender, lungs clear, normal breath sounds Abdomen: normal bowel sounds, non tender, soft, no organomegaly, no mass Extremities: normal range of motion, non-tender, normal inspection, no calf tenderness, no swelling 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
--- NOTE | 2019-06-30 11:14 | GI Progress Note ---
Assessment/Plan Problems: (1) Thrombocytopenia ICD Codes: D69.6 - Thrombocytopenia, unspecified SNOMED: 849030222 (2) Acute pancreatitis ICD Codes: K85.90 - Acute pancreatitis without necrosis or infection, unspecified SNOMED: 027441765 Qualifiers: Qualified Codes: K85.90 - Acute pancreatitis without necrosis or infection, unspecified (3) Left upper quadrant abdominal mass ICD Codes: R19.02 - Left upper quadrant abdominal swelling, mass and lump SNOMED: 417406741 Status: unchanged Status Narrative Discussed with Dr. Akbar. Assessment/Plan anemia esophagitis CM pancreatic pseudocyst CAD obesity sepsis stool studies neg cdiff neg on low fat diet patient will need EUS but given elevated trop will hold for now repeat CT reviewed abx per id fu cardiology ad nephrology repeat labs in am ppi pancreolipase The patient was seen and examined at bedside and all new and available data was reviewed in the patients chart. I agree with the above findings, impression and plan. (Patient seen earlier today. Signature stamp does not reflect patient encounter time.). - Peyman Akbar MD Subjective Gastrointestinal/Abdominal: Reports: no symptoms Objective Last 24 Hour Vital Signs Date Time Temp Pulse Resp B/P (MAP) Pulse Ox O2 Delivery O2 Flow Rate FiO2 06/30/19 09:17 78 139/67 06/30/19 09:00 Nasal Cannula 1.0 06/30/19 09:00 78 139/67 06/30/19 07:52 78 06/30/19 07:51 97.0 78 20 139/67 (91) 96 06/30/19 04:00 97.3 76 19 145/65 (91) 96 06/30/19 04:00 85 06/30/19 00:00 74 06/30/19 00:00 97.5 76 19 143/63 (89) 94 06/29/19 22:00 3.0 06/29/19 21:00 Nasal Cannula 3.0 06/29/19 20:55 82 138/64 06/29/19 20:00 98.1 82 18 138/64 (88) 98 06/29/19 20:00 83 06/29/19 19:53 84 20 98 Nasal Cannula 3.0 32 06/29/19 19:53 98 Nasal Cannula 3.0 32 06/29/19 16:00 79 06/29/19 16:00 97.6 80 20 140/60 (86) 98 06/29/19 12:23 94 Nasal Cannula 3.0 32 06/29/19 12:22 79 20 94 Nasal Cannula 3.0 32 06/29/19 12:00 84 06/29/19 12:00 97.9 72 20 153/87 (109) 100 Intake and Output 06/29/19 06/30/19 19:00 07:00 Intake Total 60 ml Output Total 1900 ml 1000 ml Balance -1900 ml -940 ml Intake Oral 60 ml Output Urine Total 1900 ml 1000 ml # Bowel Movements 1 1 Height (Feet): 5 Height (Inches): 7.00 Weight (Pounds): 250 General Appearance: WD/WN, no apparent distress, alert Cardiovascular: normal rate Respiratory/Chest: normal breath sounds, no respiratory distress Abdominal Exam: normal bowel sounds, non tender, soft Extremities: non-tender Denise Enamorado NP Jun 30, 2019 11:14
--- NOTE | 2019-06-30 11:28 | General Progress Note ---
Assessment/Plan Status: unchanged Assessment/Plan: 73 y/o M with PMH HTN, IDDM, ? history of CVA who presented to [facility] ED with nausea,vomiting. On admission pt w/acute respiratory failure, initially admitted to ICU, was placed on BiPAP, pt improved and now on NC. Pt was found to have Klebsiella bacteremia, ID consulted and pt was started on zosyn and zyvox. WBC's elevated on 06/25 for which repeat BCx were drawn which are negative at this time. Pt w/elevated lipase, found to have acute pancreatitis, CT abd revealed pancreatic pseudocyst for which GI was consulted, pt will need EUS once more stable. Pt also w/NSTEMI, acute on chronic heart failure, cardio consulted and plan for stress test once more stable. #Klebsiella bacteremia #Leukocytosis - downtrending #? infected pancreatic pseudocyst, ? aspiration pna/HCAP vs atx, arf -BCx on admission pt was found to be in septic shock, now resolved, BCx + for klebsiella bacteremia -BCx 3/ NGTD -BCx / NGTD -UCx / NGTD -on 06/25 pt w/leukocytosis, repeat BCx / NGTD -CT A/P on 06/25: with mild improvement of pseudocyst. no abscess or acute pathology identified. -indium scan ordered per ID -ID following: zosyn, zyvox #Chronic systolic CHF, HFrEF 40% TTE with EF ~40% Continue MTP 25 BID Cardiology following Start aldactone when Cr < 1.5 Stress test planned for today #acute hypoxic resp failure without hypercarbia - stable intermittent BiPAP continue inhaled bronchodilators Pulm/CCM following bipap prn and QHS #NSTEMI, peak trop of 2, likely due to demand ischemia was initially placed on heparin on admission, now off heparin Cardiology following #acute kidney injury on CKD, possible ATN - downtrending s/p IV hydration cont. to monitor BMP avoid nephrotoxic meds scr with improvement Nephrology following #acute pancreatitis #Pancreatic Pseudocyst low fat diet PPI Pancreaolipase GI following: d/w GI, pt will need EUS when more stable #Thrombocytopenia - resolved #Rule out HIT etiology likely multifactorial, likely due to sepsis cont to monitor daily CBC Hematology following - ok for DVT ppx w/heparin or lovenox when plts >50k #Hypokalemia, hypomagnesemia - resolved replaced, cont. to monitor, replace PRN #lactic acidosis #HTN cont to hold BP meds #DM type 2 ISS #Septic shock - resolved on admission pt was in ICU, now improved off pressors cont. to monitor VTE PPx - SCDs Full Code Time spent on encounter: 35 mins, >50% on counseling, coordination of care. Time of note doesn't reflect time of encounter. Subjective Date patient seen: Jun 30, 2019 Time patient seen: 09:00 ROS Limited/Unobtainable: No Constitutional: Denies: fever Cardiovascular: Denies: chest pain Respiratory: Denies: cough, orthopnea Gastrointestinal/Abdominal: Denies: abdomen distended, abdominal pain Neurologic/Psychiatric: Denies: anxiety Allergies: Coded Allergies: No Known Allergies (Unverified , 06/02/19) Subjective Follow up for septic shock, acute hypoxic resp failure, ZARINA, acute metabolic encephalopathy No current complaints, denies abdominal pain, nausea, vomiting Going for cardiac stress test today. Objective Last 24 Hour Vital Signs Date Time Temp Pulse Resp B/P (MAP) Pulse Ox O2 Delivery O2 Flow Rate FiO2 06/30/19 09:17 78 139/67 06/30/19 09:00 Nasal Cannula 1.0 06/30/19 09:00 78 139/67 06/30/19 07:52 78 06/30/19 07:51 97.0 78 20 139/67 (91) 96 06/30/19 04:00 97.3 76 19 145/65 (91) 96 06/30/19 04:00 85 06/30/19 00:00 74 06/30/19 00:00 97.5 76 19 143/63 (89) 94 06/29/19 22:00 3.0 06/29/19 21:00 Nasal Cannula 3.0 06/29/19 20:55 82 138/64 06/29/19 20:00 98.1 82 18 138/64 (88) 98 06/29/19 20:00 83 06/29/19 19:53 84 20 98 Nasal Cannula 3.0 32 06/29/19 19:53 98 Nasal Cannula 3.0 32 06/29/19 16:00 79 06/29/19 16:00 97.6 80 20 140/60 (86) 98 06/29/19 12:23 94 Nasal Cannula 3.0 32 06/29/19 12:22 79 20 94 Nasal Cannula 3.0 32 06/29/19 12:00 84 06/29/19 12:00 97.9 72 20 153/87 (109) 100 Intake and Output 06/29/19 06/30/19 18:59 06:59 Intake Total 60 ml Output Total 1900 ml 1000 ml Balance -1900 ml -940 ml Intake Oral 60 ml Output Urine Total 1900 ml 1000 ml # Bowel Movements 1 1 Height (Feet): 5 Height (Inches): 7.00 Weight (Pounds): 250 General Appearance: no apparent distress, alert Neck: normal alignment, supple Cardiovascular: normal rate, regular rhythm Respiratory/Chest: lungs clear, normal breath sounds Abdomen: non tender, soft Extremities: normal range of motion, non-tender Neurologic: classifier tender II-XII grossly normal, alert, oriented x 3 Harinder Ochoa MD Jun 30, 2019 11:28
--- NOTE | 2019-06-30 11:45 | NUR ---
PT NOTE Attempted to see patient for PT treatment. Patient not available due to stress test, will follow up tomorrow, Jf SCHULER notified.
--- NOTE | 2019-06-30 11:48 | NUR ---
PT WEEKLY PROGRESS NOTE Patient being seen by PT for therapeutic exercises, bed mobility training, transfer training, gait training and patient education. Patient demonstrating gradual gains in functional mobility and activity tolerance. Patient currently requires min/mod assist for bed mobility and transfers with FWW. Patient able to ambulate 35 ft x 2 with min/mod assist and FWW. Patient will benefit from continued skilled inpatient PT intervention to increase level of functional mobility and activity tolerance.
--- NOTE | 2019-06-30 12:03 | Surgery Progress Note ---
Surgery Progress Note Subjective Additional Comments Patient seen and examined bedside. No acute events. Patient states he is mildly upset that he has not been told in exam time he will have a stress test today. No nausea vomiting fever chills. Otherwise comfortable. Objective Last 24 Hour Vital Signs Date Time Temp Pulse Resp B/P (MAP) Pulse Ox O2 Delivery O2 Flow Rate FiO2 06/30/19 09:17 78 139/67 06/30/19 09:00 Nasal Cannula 1.0 06/30/19 09:00 78 139/67 06/30/19 07:52 78 06/30/19 07:51 97.0 78 20 139/67 (91) 96 06/30/19 04:00 97.3 76 19 145/65 (91) 96 06/30/19 04:00 85 06/30/19 00:00 74 06/30/19 00:00 97.5 76 19 143/63 (89) 94 06/29/19 22:00 3.0 06/29/19 21:00 Nasal Cannula 3.0 06/29/19 20:55 82 138/64 06/29/19 20:00 98.1 82 18 138/64 (88) 98 06/29/19 20:00 83 06/29/19 19:53 84 20 98 Nasal Cannula 3.0 32 06/29/19 19:53 98 Nasal Cannula 3.0 32 06/29/19 16:00 79 06/29/19 16:00 97.6 80 20 140/60 (86) 98 06/29/19 12:23 94 Nasal Cannula 3.0 32 06/29/19 12:22 79 20 94 Nasal Cannula 3.0 32 I&O Intake and Output 06/29/19 06/30/19 19:00 07:00 Intake Total 60 ml Output Total 1900 ml 1000 ml Balance -1900 ml -940 ml Intake Oral 60 ml Output Urine Total 1900 ml 1000 ml # Bowel Movements 1 1 Dressing: dry Wound: clean Cardiovascular: RSR Respiratory: clear Abdomen: soft, flat, non-tender, present bowel sounds Extremities: no edema, no tenderness, no cyanosis Plan Problems: (1) Sacral decubitus ulcer Assessment & Plan: Patient identified to have a stage II sacral decubitus ulcer as well as incontinence associated dermatitis in the surrounding areas. Patient with diarrhea and sometimes sits for prolonged period times in stool. He has been changes frequently as possible by nursing staff and his been instructed to let staff know when incontinence so that they can assist him in changing. A is seen at bedside today with family available. We discussed current status and reviewed the wound together. We evaluated it cleaned and applied new dressings. We discussed the formation the etiology and the prognosis. Patient is able to move on his side on his own and is able to move in bed. He states he lays comfortably on his back but is instructed to return as much as possible. I have told him that the nursing staff and even myself and my team will assist him with turning as much as possible but given the fact that he is able to move on his own it would be strongly advised to turn as often as possible to alleviate pressure on his wound or develop new wounds. I explained to them that in laying in 1 position for prolonged period time can cause worsening cubitus ulcers or new ulcers to form. Long session was had with the patient and family and care plan was initiated. Patient is very amenable to care plan and cooperative. We will continue to monitor while inpatient and ensure improvemen Pt presents with two partial thickness pressure injuries R and L buttocks with surrounding Moisture Associated Skin Damage Partial thickness pressure injury R buttocks (L)2.2cm x (W)1cm. Base of wound is moist and viable with loose skin flap along edges. No odor or exudate. Periwound erythematous with denuded skin. Partial thickness pressure injury L buttocks. Base of wound is moist and viable. Edges are macerated. Non-blanching erythema with moisture denudement periwound.No exudate noted(L)2cm x (W)3cm.Scrotum erythematous with scattered satellite lesions at base of Scrotum. Both heels are boggy with non-blanching erythema. Pt denied tenderness when each heel individually palpated. Pt noted to be incontinent of loose B.M at start of visit. Pt also demonstrated ability to reposition self in bed but according to staff on unit pt is non- compliant and lacks motivation. PT informed of pressure injuries R and L buttocks , erythematous Scrotum and risks for further Skin decline. Pt educated on comorbidities that can contribute to wounds declining. Instructed pt to call for asst with toileting and encouraged to frequently reposition ,at least hourly while in bed. Pt declined to respond to verbal instructions. Spouse visited and updated on skin breakdown . Spouse also educated of risks for further skin breakdown if pt continues to be non-compliant with repositioning and toileting. I had a long discussion at bedside today 06/30/2019 with the patient and his . I explained to patient the above findings again and we reviewed the decubitus formation and goals and plans of care for prevention as well as improvement. I have asked patient to help mobilize himself and he was able to turn to his left side following to the right side. Given his size it does take a little bit of effort but it is possible and he is able to do it on his own. I explained to patient how important it is to continue current side specially as he can do it on its own. Patient states he just wants to relax and be comfortable on his back. I explained to them how the above findings of formed and how they may worsen if he continues to do so. Patient is clearly competent and expresses understanding. I explained the patient that it would be very important for him to continue with the plan of care that we have discussed. Patient states that it should be someone at all times to help him with these things and explained to patient that nursing staff and myself are willing and helping as much as necessary but he is capable and we strongly recommend that since he has ability it would be strongly recommended for him to offload pressure as much as possible. Tx.Plan: Apply Moisture Barrier Paste to R and L buttocks. Cover with Optifoam drsg. Change every 3 days and prn. Apply Moisture Barrier Paste to Scrotum with each incontinence care. Encourage to reposition self at least hourly while in bed. Apply Cavilon Skin Barrier to each heels. Cover each heel with OPtifoam drsg. Change every 7 days and prn. Off-load heels with Pillow. (2) Incontinence associated dermatitis (3) Left upper quadrant abdominal mass Assessment & Plan: Telemetry pancreatic mass cystic large with infiltration around it worsening on recent CT. Discussed with GI and agree will need EUS but given elevated troponins and current cardiac status will await clearance and improvement prior to proceeding with EUS. (4) Acute pancreatitis Assessment & Plan: Lungs: Small posterior basilar pleural effusions are demonstrated. Consolidation versus atelectasis involving the lung bases bilaterally. Similar appearance on the prior occasion.. Liver: Unremarkable Gallbladder/biliary system: Gallbladder is absent. No biliary ductal dilatation seen.. Spleen: Unremarkable Pancreas: Pancreas is atrophic. Once again there is a large approximately 10 cm well-circumscribed cystic mass in the left upper quadrant associated with the tail the pancreas. This has been previously described and was seen on the last 2 CT examinations. This cyst is questionably slightly smaller. There is however moderately increased soft tissue stranding in the area surrounding the cyst anteriorly indicative of inflammation. In addition part of the splenic flexure which abuts the cyst and traverses the area of inflammation shows focal dilatation likely a localized inflammatory response or localized ileus. The degree of inflammation has significantly increased and is worse than both the prior occasions on 06/20/2019 or on 06/15/2019. In addition the degree of anasarca has increased. There is a small amount of free fluid within the abdomen which has also increased slightly since the last study. Kidneys/Bladder: No definite stone or hydronephrosis are identified. There is a probable right renal cyst again noted. The urinary bladder is nondistended. Rivero catheter in good position. Adrenal glands: Unremarkable Bowel: Unremarkable. Aorta/IVC: Aortoiliac calcifications are noted consistent with atherosclerotic disease. Peritoneum: There is mild free fluid present within the peritoneal cavity.. Bones: There is narrowing of intervertebral discs and accompanying endplate osteophyte formation. Hypertrophied facet joints also demonstrated. Generalized osteopenia noted. Moderate osteoarthritis of both hips demonstrated. IMPRESSION: Moderate increased inflammation surrounding a 10 cm cystic mass in the left upper quadrant. The cystic mass may be slightly smaller than on the previous CT examinations performed 06/20/2019 and 06/15/2019. 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 Cystic neoplasm is not excluded. Persistent small bilateral pleural effusions and underlying consolidation/atelectasis. Trace ascites. Worsening anasarca. Status post cholecystectomy. Arterial vascular disease. Benitez Sheppard Jun 30, 2019 12:03
--- NOTE | 2019-06-30 13:21 | Pulmonology Progress Note ---
Assessment/Plan Problems: (1) Sepsis (2) Hypoxia (3) Left upper quadrant abdominal mass (4) Thrombocytopenia Assessment & Plan: Recovered Hit Ab panel neg (5) Acute kidney injury superimposed on CKD Assessment/Plan F/U CT chest Needs an outpatient PSG and PFT PRN O2 PRN HHN's Monitor volumes and renal function ABx per ID, F/U Cx's F/U cards recs ---> plan for stress test F/U GI recs ASPIRATION precautions DVT Px: SCD's FC Subjective Allergies: Coded Allergies: No Known Allergies (Unverified , 06/02/19) Subjective AFVSS on 2-3L Weak cough no SOB no FC no CP Objective Last 24 Hour Vital Signs Date Time Temp Pulse Resp B/P (MAP) Pulse Ox O2 Delivery O2 Flow Rate FiO2 06/30/19 09:17 78 139/67 06/30/19 09:00 Nasal Cannula 1.0 06/30/19 09:00 78 139/67 06/30/19 07:52 78 06/30/19 07:51 97.0 78 20 139/67 (91) 96 06/30/19 04:00 97.3 76 19 145/65 (91) 96 06/30/19 04:00 85 06/30/19 00:00 74 06/30/19 00:00 97.5 76 19 143/63 (89) 94 06/29/19 22:00 3.0 06/29/19 21:00 Nasal Cannula 3.0 06/29/19 20:55 82 138/64 06/29/19 20:00 98.1 82 18 138/64 (88) 98 06/29/19 20:00 83 06/29/19 19:53 84 20 98 Nasal Cannula 3.0 32 06/29/19 19:53 98 Nasal Cannula 3.0 32 06/29/19 16:00 79 06/29/19 16:00 97.6 80 20 140/60 (86) 98 Intake and Output 06/29/19 06/30/19 19:00 07:00 Intake Total 60 ml Output Total 1900 ml 1000 ml Balance -1900 ml -940 ml Intake Oral 60 ml Output Urine Total 1900 ml 1000 ml # Bowel Movements 1 1 Objective Ob M General Appearance: no acute distress, other - Ob M HEENT: normocephalic, atraumatic Respiratory/Chest: chest wall non-tender, lungs clear, normal breath sounds, no respiratory distress, no accessory muscle use Cardiovascular: normal peripheral pulses, normal rate, regular rhythm Abdomen: normal bowel sounds, soft, non tender, no organomegaly, non distended , no mass Extremities: no cyanosis, no clubbing, no edema Current Medications Medications (Trade) Dose Ordered Sig/Arley Route PRN Reason Start Time Stop Time Status Last Admin Dose Admin Acetaminophen (Tylenol) 650 mg Q4H PRN ORAL Mild Pain (Pain Scale 1-3) 06/24/19 19:00 07/15/19 18:59 06/29/19 03:41 Albumin Human 50 ml @ 50 mls/hr DAILYPRN PRN IV For hypotension 06/25/19 09:00 07/25/19 08:59 Albuterol/ Ipratropium (Albuterol/ Ipratropium) 3 ml Q4H PRN HHN Shortness of Breath 06/29/19 16:43 07/04/19 16:42 Amlodipine Besylate (Norvasc) 5 mg DAILY ORAL 06/25/19 09:00 07/24/19 08:59 06/30/19 09:17 Amylase/Lipase/ Protease (Zenpep) 3 ea THREE TIMES A DAY ORAL 06/26/19 14:00 07/26/19 13:59 06/30/19 09:17 Aspirin (ASA) 81 mg DAILY ORAL 06/25/19 09:00 07/20/19 08:59 06/30/19 09:17 Bisacodyl (Dulcolax) 10 mg DAILYPRN PRN RECTAL Constipation 06/24/19 19:00 07/24/19 18:59 Dextrose (Dextrose 50%) 25 ml Q30M PRN IV Hypoglycemia 06/24/19 18:45 07/16/19 18:05 Dextrose (Dextrose 50%) 50 ml Q30M PRN IV Hypoglycemia 06/24/19 18:45 07/16/19 18:05 Insulin Aspart (NovoLOG) AC+HS SUBQ 06/24/19 21:00 07/20/19 17:59 06/30/19 05:23 Linezolid 300 ml @ 300 mls/hr EVERY 12 HOURS IVPB 06/26/19 21:00 07/03/19 20:59 06/29/19 20:55 Magnesium Hydroxide (Mom) 30 ml HSPRN PRN ORAL Constipation 06/24/19 21:00 07/15/19 20:59 Metoprolol Tartrate (Lopressor) 25 mg Q12HR ORAL 06/24/19 21:00 07/20/19 08:59 06/29/19 20:55 Ondansetron HCl (Zofran) 4 mg Q6H PRN IVP Nausea & Vomiting 06/24/19 19:00 07/24/19 18:59 Pantoprazole (Protonix) 40 mg DAILY ORAL 06/28/19 09:00 07/28/19 08:59 06/30/19 09:16 Piperacillin Sod/ Tazobactam Sod 3.375 gm/Sodium Chloride 110 ml @ 27.5 mls/hr EVERY 8 HOURS IVPB 06/28/19 14:00 07/03/19 13:59 06/30/19 05:14 Regadenoson (Lexiscan) 0.4 mg ONCE PRN IV cardiology 06/29/19 19:03 07/01/19 23:59 06/30/19 12:30 Homero Moran MD Jun 30, 2019 13:21
--- NOTE | 2019-06-30 14:52 | Nephrology Progress Note ---
Assessment/Plan Plan #acute kidney injury - on baseline CKD- Fena 0.4% suggestive of pre-renal aztemia- however UA with sediments and RBC concerning for developing ATN- patient with baseline diabetic nephropathy -Cr uptrended today #sepsis #acute pancreatitis- improved # Hypokalemia, hypopmagnesemia - repleted #lactic acidosis- improved #HTN- stable #DM- controlled #NSTEMI #hypernatremia - improved #elinaa on CKD - baseline Cr in mid to high 1s- now worsening in the setting of sepsis and possibly vanco induced #metabolic acidosis - due to renal insufficiency - Cr up to 2.0 - monitor off IVF - monitor Cr - check bmp tomorrow - dc sodium bicarb 650mg TID #sepsis - antibiotics per ID- zosyn and zyvox, avoid nephrotoxic antibiotics - avoid supratherapeutic vanco level - monitor WBC #troponemia - heparin on hold for thrombocytopenia - HIT? - cardiology eval - stress test today #HTN - hold lisinopril - resume amldipine 5mg daily - metop 25mg BID #DM - hold metformin - ISS Subjective Subjective Breathing stable today - on NC plan for stress test today will check BMP tomorrow on zosyn and zyvox BP stable Objective Objective Last 24 Hour Vital Signs Date Time Temp Pulse Resp B/P (MAP) Pulse Ox O2 Delivery O2 Flow Rate FiO2 06/30/19 12:00 78 06/30/19 09:17 78 139/67 06/30/19 09:00 Nasal Cannula 1.0 06/30/19 09:00 78 139/67 06/30/19 07:52 78 06/30/19 07:51 97.0 78 20 139/67 (91) 96 06/30/19 04:00 97.3 76 19 145/65 (91) 96 06/30/19 04:00 85 06/30/19 00:00 74 06/30/19 00:00 97.5 76 19 143/63 (89) 94 06/29/19 22:00 3.0 06/29/19 21:00 Nasal Cannula 3.0 06/29/19 20:55 82 138/64 06/29/19 20:00 98.1 82 18 138/64 (88) 98 06/29/19 20:00 83 06/29/19 19:53 84 20 98 Nasal Cannula 3.0 32 06/29/19 19:53 98 Nasal Cannula 3.0 32 06/29/19 16:00 79 06/29/19 16:00 97.6 80 20 140/60 (86) 98 Intake and Output 06/29/19 06/30/19 19:00 07:00 Intake Total 60 ml Output Total 1900 ml 1000 ml Balance -1900 ml -940 ml Intake Oral 60 ml Output Urine Total 1900 ml 1000 ml # Bowel Movements 1 1 Height (Feet): 5 Height (Inches): 7.00 Weight (Pounds): 250 Objective General Appearance: Alert - no distress Lines, tubes and drains: peripheral HEENT: normocephalic, atraumatic Neck: non-tender, normal alignment Respiratory/Chest: chest wall non-tender, lungs clear, normal breath sounds Cardiovascular/Chest: normal rate, regular rhythm Abdomen: normal bowel sounds, non tender, soft Extremities: non-tender, normal inspection Skin Exam: normal pigmentation, no diaphoresis Gerson Salgado M.D. Jun 30, 2019 14:52
--- NOTE | 2019-06-30 15:04 | Diagnostic Imaging Report ---
Indication: Chest pain. Acute respiratory failure. Technique: Continuous helical transaxial imaging of the chest was obtained from the thoracic inlet to the upper abdomen. No intravenous contrast was administered. Coronal 2-D reformats were also obtained. Total Dose length Product (DLP): 537.[address] Dose Index Volume (CTDIvol): 14.1 mGy Comparison: Chest x-ray 06/29/2019 Findings: Posterior basilar bilateral consolidative opacities versus atelectasis demonstrated. There are bilateral pleural effusions present which are mild to moderate in size. Aorta is ectatic and calcified. Minimal reticulation noted at the periphery of the anterior left upper lobe. The heart is enlarged. There are coronary calcifications present. Aorta is mildly calcified. There is breathing motion which limits evaluation. The visualized part of the upper abdomen again demonstrates a large cystic mass in the left upper quadrant abdomen probably a pancreatic pseudocysts. This was described on previous CT 06/26/2019. Generalized anasarca noted within the abdominal wall bilaterally. The gallbladder is absent. There is a right renal hypodensity. Multilevel thoracic vertebral endplate osteophytes and ossification of anterior longitudinal ligament noted. IMPRESSION: Bilateral lower lobe infiltrates and/or atelectasis. Mild to moderate bilateral pleural effusions. Minimal scarring in the left anterior upper lobe. Arterial vascular disease Cardiomegaly Status post cholecystectomy 10 cm cystic mass in the left upper quadrant abdomen probably pseudocysts. Please refer to the CT report from 06/26/2019. The CT scanner at [facility] is accredited by the [employer] and the scans are performed using dose optimization techniques as appropriate to a performed exam including Automatic Exposure control.
--- NOTE | 2019-06-30 15:37 | NUR ---
NURSE NOTES: Received report from Jf SCHULER. Pt in bed awake and orientedx4. No c/o pain. Denied SOB. Side railsx3 up for safety. Bed in lowest position locked. Call light within easy reach. Will continue to plan of care.
--- NOTE | 2019-06-30 15:57 | Diagnostic Imaging Report ---
Indication: chest pain Technique: The study was conducted under the supervision of a furnace combustion analyst. lexiscan (regadenoson) infusion over 10 seconds followed by intravenous administration of 32.3 mCi of technetium 99m Myoview was performed. Three plane SPECT imaging of the heart was then performed. A resting study was performed as part of the one-day protocol with 10.7 mCi of technetium 99m myoview injected intravenously at that time. Three plane SPECT imaging of the heart was obtained. Comparison: None Clinical data: 1. Clinical response: Non ischemic 2. Electrocardiographic response: Non ischemic Findings: The myocardial perfusion scan demonstrates large perfusion defect involving the inferior wall and apex consistent with a myocardial infarct. This extends into the inferolateral segment. IMPRESSION: Inferior and inferolateral wall infarct including the apex. No definite evidence of myocardial ischemia. Note: The study was limited because of difficulty with gating due to the patient's irregular heart rhythm. LVEF also could not be calculated.
[2019-06-30 16:00] VITALS: BP 150/69
--- NOTE | 2019-06-30 16:58 | Diagnostic Imaging Report ---
Indication: Leukocytosis. Technique: 550 uCi of Indium labelled WBCs was injected intravenously. Labelling performed using an in-vitro technique. A whole-body bone scan was then performed in anterior and posterior projections after a 24 hour delay. Comparison: None Findings: . Normal uptake is demonstrated throughout the body. Impression: Normal whole body WBC scan
--- NOTE | 2019-06-30 18:03 | Infectious Diseases Prog Note ---
Assessment/Plan Assessment/Plan 1. hx klebsiella bacteremia, sepsis, leukocytosis, ? infected pancreatic pseudocyst, ? aspiration pna/HCAP vs atx, arf, CT abdomen and pelvis noted, CT chest noted - zosyn and zyvox, avoid nephrotoxic antibiotics - day # 5 combination - surveillance cultures negative, chest x-ray with atx - monitor labs, leukocytosis improving - indium scan pending - c.diff. ordered for diarrhea - await results 2. Shock - improved, off pressors 3. Shortness of breath, hypoxia, on BiPAP - improved, off pressors 4. Pulmonary followup. 5. Acute renal failure. 6. Anemia. 7. Diabetes. 8. Hypertension. 9. Blood sugar and blood pressure treatment per primary care team. 10. Possible CVA history. 11. No known drug allergies. 12. Social history is negative. 13. Family history is noncontributory. 14. MAR was noted. 15. Case discussed with RN. 16. Continue treatment per primary consultants. 17. ICU care. 18. Skin care protocol. 19. Orders were noted and entered. 20. GI followup. Subjective Constitutional: Denies: fever, fatigue HEENT: Denies: congestion Respiratory: Denies: shortness of breath Cardiovascular: Denies: chest pain Gastrointestinal/Abdominal: Denies: nausea, vomiting, diarrhea Genitourinary: Reports: other - no contreras Neurologic: Denies: headache Psychiatric: Denies: depression Skin: Denies: rash Hematologic: Denies: bleeding Musculoskeletal: Denies: pain Allergies: Coded Allergies: No Known Allergies (Unverified , 06/02/19) Objective Vital Signs Last 24 Hour Vital Signs Date Time Temp Pulse Resp B/P (MAP) Pulse Ox O2 Delivery O2 Flow Rate FiO2 06/30/19 16:00 81 06/30/19 16:00 97.8 83 20 150/69 (96) 95 06/30/19 12:00 78 06/30/19 09:17 78 139/67 06/30/19 09:00 Nasal Cannula 1.0 06/30/19 09:00 78 139/67 06/30/19 07:52 78 06/30/19 07:51 97.0 78 20 139/67 (91) 96 06/30/19 04:00 97.3 76 19 145/65 (91) 96 06/30/19 04:00 85 06/30/19 00:00 74 06/30/19 00:00 97.5 76 19 143/63 (89) 94 06/29/19 22:00 3.0 06/29/19 21:00 Nasal Cannula 3.0 06/29/19 20:55 82 138/64 06/29/19 20:00 98.1 82 18 138/64 (88) 98 06/29/19 20:00 83 06/29/19 19:53 84 20 98 Nasal Cannula 3.0 32 06/29/19 19:53 98 Nasal Cannula 3.0 32 Height (Feet): 5 Height (Inches): 7.00 Weight (Pounds): 250 General Appearance: no acute distress HEENT: normocephalic, atraumatic, anicteric, mucous membranes moist Respiratory/Chest: no respiratory distress, no accessory muscle use, crackles/ rales, rhonchi - bilaterally Cardiovascular: normal rate, regular rhythm, no gallop/murmur, no JVD Abdomen: normal bowel sounds, soft, non tender, no organomegaly, non distended Genitourinary: other - + contreras - urine clear Extremities: no cyanosis Skin: no rash Neurologic/Psychiatric: simulation analyst II-XII grossly normal, alert, oriented x 3, responsive Lymphatic: no neck adenopathy Musculoskeletal: no effusion Objective Chest x-ray - 06/17/19 - Procedure: XRAY Chest 1v Indication: Dyspnea Comparison: 06/15/2019 A single view chest radiograph was obtained. Findings: Pulmonary vascular interstitial prominence demonstrated with cardiomegaly. There is a left-sided PICC line with the tip projected over the SVC. Old right clavicle fracture noted. IMPRESSION: Mild CHF CT abdomen and pelvis - 06/15/19 - Impression: Unilocular left upper quadrant cystic mass adjacent to the tail of pancreas and the greater curvature of the stomach. Favor pancreatic pseudocyst, particularly in view of evidence of pancreatic atrophy. However, cystic neoplasm of pancreatic, gastric, or other origin also possible. Consider contrast MRI for better characterization Small ventral hernia containing a single small loop of small bowel, no definite obstruction or strangulation related to such Mildly distended proximal small bowel with slow forward transit of ingested contrast. Suspect ileus or enteritis, although early/partial small bowel obstruction also possible. Correlate with clinical findings Mild distal soft tissue wall thickening, esophagitis possible. Correlate with clinical findings Bilateral basilar pulmonary parenchymal infiltrates versus edema, fairly extensive Cardiomegaly. Apparent bladder wall thickening. Probably an artifact of lack of distention, but cystitis also possible Nonspecific bilateral perinephric fat stranding. Suspect chronic although acute renal inflammation also possible Chest x-ray - 06/20/19 - Procedure: XRAY Chest 1v Indication: Cough Technique: One view of the chest Comparison: 06/19/2019 Findings: Right mid and lower lung infiltrates, generalized interstitial congestion persists, unchanged. Cardiomegaly again demonstrated. Impression: Unchanged, over one day, findings as above. CT abdomen and pelvis - 06/20/19 - Impression: Left upper quadrant cystic mass adjacent to the pancreatic tail and greater curvature the stomach, also reported previously, equivocally slightly larger currently. As previously described, most likely a pancreatic pseudocyst. Cystic pancreatic neoplasm also possible Trace ascites. This is a new finding since the prior exam. Bilateral pleural effusions and bilateral pulmonary parenchymal compressive atelectasis. Likewise a new finding since previous study Nonspecific bilateral perinephric fat stranding, also previously reported Bilateral basilar pulmonary interstitial and airspace edema Generalized edema of the subcutaneous fat Portable cardiomegaly Empty bladder with a Contreras catheter Degenerative spondylosis Chest x-ray - 06/24/19- Comparison: 06/12/2019 A single view chest radiograph was obtained. Findings: No definite infiltrate or pulmonary vascular congestion identified. The heart is enlarged. The aorta is mildly enlarged consistent with atherosclerotic vascular disease. The bones are osteopenic. There are thoracic vertebral enthesophytes at multiple levels. Impression: No acute disease 06/26/19 - CT scan of abdomen and pelvis: IMPRESSION: Moderate increased inflammation surrounding a 10 cm cystic mass in the left upper quadrant. The cystic mass may be slightly smaller than on the previous CT examinations performed 06/20/2019 and 06/15/2019. 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 Cystic neoplasm is not excluded. Persistent small bilateral pleural effusions and underlying consolidation/atelectasis. Trace ascites. Worsening anasarca. Status post cholecystectomy. Arterial vascular disease. Chest x-ray - 06/25/19 - Procedure: XRAY Chest 1v Indication: Dyspnea Comparison: 06/23/2019 A single view chest radiograph was obtained. Findings: Interstitial is mildly prominent but findings appear stable. There is suspected mild atelectasis right lung base. Please correlate clinically. Similar findings seen previously. The heart is enlarged. IMPRESSION: Mild right basal atelectasis. No change otherwise. CT chest: IMPRESSION: Bilateral lower lobe infiltrates and/or atelectasis. Mild to moderate bilateral pleural effusions. Minimal scarring in the left anterior upper lobe. Arterial vascular disease Cardiomegaly Status post cholecystectomy Microbiology Date/Time Source Procedure Growth Status 06/25/19 10:20 Blood Blood Culture - Preliminary NO GROWTH AFTER 4 DAYS Resulted 06/17/19 10:00 Sputum Induced Gram Stain - Final Complete 06/17/19 10:00 Sputum Induced Sputum Culture - Final NO GROWTH AFTER 48 HOURS Complete 06/19/19 10:20 Stool Stool Culture - Final NO SALMONELLA,SHIGELLA,OR CAMPYLOBACT... Complete 06/25/19 18:00 Indwelling Cath Urine Culture - Final NO GROWTH AFTER 48 HOURS Complete 06/22/19 21:00 Arm Left Catheter Tip Culture - Final NO GROWTH AFTER 4 DAYS Complete Labs Test 06/28/19 06:15 06/29/19 06:25 White Blood Count 18.6 K/UL (4.8-10.8) 13.4 K/UL (4.8-10.8) Red Blood Count 3.40 M/UL (4.70-6.10) 3.50 M/UL (4.70-6.10) Hemoglobin 9.8 G/DL (14.2-18.0) 10.0 G/DL (14.2-18.0) Hematocrit 28.9 % (42.0-52.0) 30.2 % (42.0-52.0) Mean Corpuscular Volume 85 FL (80-99) 86 FL (80-99) Mean Corpuscular Hemoglobin 28.9 PG (27.0-31.0) 28.6 PG (27.0-31.0) Mean Corpuscular Hemoglobin Concent 34.0 G/DL (32.0-36.0) 33.1 G/DL (32.0-36.0) Red Cell Distribution Width 12.8 % (11.6-14.8) 12.9 % (11.6-14.8) Platelet Count 195 K/UL (150-450) 208 K/UL (150-450) Mean Platelet Volume 8.1 FL (6.5-10.1) 9.3 FL (6.5-10.1) Neutrophils (%) (Auto) % (45.0-75.0) 84.9 % (45.0-75.0) Lymphocytes (%) (Auto) % (20.0-45.0) 5.9 % (20.0-45.0) Monocytes (%) (Auto) % (1.0-10.0) 7.3 % (1.0-10.0) Eosinophils (%) (Auto) % (0.0-3.0) 0.9 % (0.0-3.0) Basophils (%) (Auto) % (0.0-2.0) 0.9 % (0.0-2.0) Differential Total Cells Counted 100 Neutrophils % (Manual) 92 % (45-75) Lymphocytes % (Manual) 3 % (20-45) Monocytes % (Manual) 4 % (1-10) Eosinophils % (Manual) 1 % (0-3) Basophils % (Manual) 0 % (0-2) Band Neutrophils 0 % (0-8) Platelet Estimate Adequate Platelet Morphology Normal Hypochromasia 1+ Sodium Level 138 MMOL/L (136-145) 139 MMOL/L (136-145) Potassium Level 4.1 MMOL/L (3.5-5.1) 4.2 MMOL/L (3.5-5.1) Chloride Level 107 MMOL/L (98-107) 107 MMOL/L (98-107) Carbon Dioxide Level 22 MMOL/L (21-32) 25 MMOL/L (21-32) Anion Gap 9 mmol/L (5-15) 8 mmol/L (5-15) Blood Urea Nitrogen 41 mg/dL (7-18) 33 mg/dL (7-18) Creatinine 2.1 MG/DL (0.55-1.30) 2.0 MG/DL (0.55-1.30) Estimat Glomerular Filtration Rate 31.1 mL/min (>60) 32.9 mL/min (>60) Glucose Level 141 MG/DL (74-106) 162 MG/DL (74-106) Calcium Level 7.5 MG/DL (8.5-10.1) 7.7 MG/DL (8.5-10.1) Total Bilirubin 0.4 MG/DL (0.2-1.0) 0.4 MG/DL (0.2-1.0) Aspartate Amino Transf (AST/SGOT) 10 U/L (15-37) 12 U/L (15-37) Alanine Aminotransferase (ALT/SGPT) 7 U/L (12-78) 14 U/L (12-78) Alkaline Phosphatase 44 U/L (46-116) 48 U/L (46-116) Total Protein 4.4 G/DL (6.4-8.2) 4.8 G/DL (6.4-8.2) Albumin 1.3 G/DL (3.4-5.0) 1.4 G/DL (3.4-5.0) Globulin 3.1 g/dL 3.4 g/dL Albumin/Globulin Ratio 0.4 (1.0-2.7) 0.4 (1.0-2.7) Amylase Level 116 U/L (25-115) 124 U/L (25-115) Lipase 471 U/L (73-393) 519 U/L (73-393) Current Medications Medications (Trade) Dose Ordered Sig/Arley Route PRN Reason Start Time Stop Time Status Last Admin Dose Admin Acetaminophen (Tylenol) 650 mg Q4H PRN ORAL Mild Pain (Pain Scale 1-3) 06/24/19 19:00 07/15/19 18:59 06/29/19 03:41 Albumin Human 50 ml @ 50 mls/hr DAILYPRN PRN IV For hypotension 06/25/19 09:00 07/25/19 08:59 Albuterol/ Ipratropium (Albuterol/ Ipratropium) 3 ml Q4H PRN HHN Shortness of Breath 06/29/19 16:43 07/04/19 16:42 Amlodipine Besylate (Norvasc) 5 mg DAILY ORAL 06/25/19 09:00 07/24/19 08:59 06/30/19 09:17 Amylase/Lipase/ Protease (Zenpep) 3 ea THREE TIMES A DAY ORAL 06/26/19 14:00 07/26/19 13:59 06/30/19 17:33 Aspirin (ASA) 81 mg DAILY ORAL 06/25/19 09:00 07/20/19 08:59 06/30/19 09:17 Bisacodyl (Dulcolax) 10 mg DAILYPRN PRN RECTAL Constipation 06/24/19 19:00 07/24/19 18:59 Dextrose (Dextrose 50%) 25 ml Q30M PRN IV Hypoglycemia 06/24/19 18:45 07/16/19 18:05 Dextrose (Dextrose 50%) 50 ml Q30M PRN IV Hypoglycemia 06/24/19 18:45 07/16/19 18:05 Insulin Aspart (NovoLOG) AC+HS SUBQ 06/24/19 21:00 07/20/19 17:59 06/30/19 17:28 Linezolid 300 ml @ 300 mls/hr EVERY 12 HOURS IVPB 06/26/19 21:00 07/03/19 20:59 06/30/19 09:00 Magnesium Hydroxide (Mom) 30 ml HSPRN PRN ORAL Constipation 06/24/19 21:00 07/15/19 20:59 Metoprolol Tartrate (Lopressor) 25 mg Q12HR ORAL 06/24/19 21:00 07/20/19 08:59 06/29/19 20:55 Ondansetron HCl (Zofran) 4 mg Q6H PRN IVP Nausea & Vomiting 06/24/19 19:00 07/24/19 18:59 Pantoprazole (Protonix) 40 mg DAILY ORAL 06/28/19 09:00 07/28/19 08:59 06/30/19 09:16 Piperacillin Sod/ Tazobactam Sod 3.375 gm/Sodium Chloride 110 ml @ 27.5 mls/hr EVERY 8 HOURS IVPB 06/28/19 14:00 07/03/19 13:59 06/30/19 14:00 Regadenoson (Lexiscan) 0.4 mg ONCE PRN IV cardiology 06/29/19 19:03 07/01/19 23:59 06/30/19 12:30 Pranay Waller MD Jun 30, 2019 18:03
--- NOTE | 2019-06-30 19:05 | NUR ---
NURSE NOTES: Received report from GANGA Roy. Patient is awake, lying in semi badillo's; resting comfortably. A/Ox4. Denies pain at this time. No signs of acute distress noted. Checked IV site and flushed. No erythema, bleeding or infiltration noted. On contreras catheter draining well to gravity. Bed at lowest position, brakes on, siderailsx3. Call light within reach. Will continue to monitor.
--- NOTE | 2019-06-30 19:22 | NUR ---
HAND-OFF: Report given to Sharda SCHULER. Pt remains stable.
[2019-06-30 20:00] VITALS: BP 154/71
--- NOTE | 2019-06-30 20:00 | NUR ---
NURSE NOTES: Turn patient Q2. Encouraged patient to turn to sides.
--- NOTE | 2019-06-30 21:15 | NUR ---
NURSE NOTES: Notified Dr. Guzman Enamorado NP of patient's C diff (-)x2. Per Dr. Julien, to give imodium 2mg PO Q4 PRN. Noted and carried out.
[2019-07-01] VITALS: BP 144/69
--- NOTE | 2019-07-01 00:19 | NUR ---
HAND-OFF: Report given to GANGA Shaikh. Plan of care endorsed.
[2019-07-01 04:00] VITALS: BP 156/64
[2019-07-01] MEDS: Piperacillin/Tazobactam 3.375 GM in NS 110 ML IVPB SCH ×3 (05:32→21:47)
[2019-07-01] MEDS: NovoLOG Insulin Flexpen SUBQ SCH ×4 (05:42→21:49)
--- NOTE | 2019-07-01 06:00 | NUR ---
PT.RESTING IN TTE BED ,DUANE PAIN OR DISCOMFORT.FBS 140,3UNITS REG INSULIN GIVEN. Report endorsed to nurse BUCHANAN.
--- NOTE | 2019-07-01 06:19 | Hematology/Onc Progress Note ---
Assessment/Plan Assessment/Plan Assessment and recs: # Leukocytosis with hx of infection, hx klebsiella bacteremia, sepsis, leukocytosis, ? infected pancreatic pseudocyst, ? aspiration pna/HCAP vs atx, arf, CT abdomen and pelvis noted --> on vanc/zosyn -> ct a/p reviewed --> wbc 15-->30-->24-->13.4 --> pending source eval per id # 10.7 cm unilocular cystic structure in the left upper quadrant retroperitoneal , corresponding to findings reported on recent CT scan. Most likely represents a pancreatic pseudocyst. --> continue to monitor as per gi --> repeat us or ct in short order, weeks to months to re-eval --> repeat ct showed mild enlargement of cyst/mass, will need further repeat imaging --> may need indium scan # Thrombocytopenia - potential causes multifactorial, in this case due to sepsis , less likely due to heparin --> Hep panel and HIV are negative --> US abd to evaluate for cirrhosis and hsm ordered and none noted --> Peripheral smear ordered to evaluate for blasts /schistocytes --> abx and other meds have been reviewed --> ok for ppx if plt >50k w/ either heparin or lovenox --> Transfuse if Plt < 20k and fever, or if Plt < 10k without fever --> plt trend 41-->49k-->63k-->110-->208 # DM, ? history of CVA who presented to [facility] ED with nausea,vomiting. --> a1c goal <8, accuchecks qac/qhs # Septic shock, POA, possible biliary source --> cont ICU level of care --> cont IV hydration --> on abx, as per pulm/cc # Acute hypoxic resp failure without hypercarbia --> Intermittent BiPAP --> continue inhaled bronchodilators # NSTEMI, peak trop of 2, likely due to demand ischemia --> Stop heparin due to thrombocytopenia --> duplex lower legs is neg --> HIT neg --> per cards # Acute kidney injury on CKD, possible ATN --> Nephrology following # Acute pancreatitis --> hydration # HTN --> cont to hold BP meds # DM type 2 --> ISS # Dvt ppx scds Appreciate consultation and dw Rn Subjective Constitutional: Denies: no symptoms, chills, fever, malaise, weakness, other HEENT: Denies: no symptoms, eye pain, blurred vision, tearing, double vision, ear pain, ear discharge, nose pain, nose congestion, throat pain, throat swelling, mouth pain, mouth swelling, other Cardiovascular: Denies: no symptoms, chest pain, edema, irregular heart rate, lightheadedness, palpitations, syncope, other Respiratory: Denies: no symptoms, cough, shortness of breath, SOB with excertion, SOB at rest, sputum, wheezing, other Gastrointestinal/Abdominal: Denies: no symptoms, abdomen distended, abdominal pain, black stools, tarry stools, blood in stool, constipated, diarrhea, difficulty swallowing, nausea, poor appetite, poor fluid intake, rectal bleeding , vomiting, other Genitourinary: Denies: no symptoms, burning, discharge, frequency, flank pain, hematuria, incontinence, pain, urgency, other Neurologic/Psychiatric: Denies: no symptoms, anxiety, depressed, emotional problems, headache, numbness, paresthesia, pre-existing deficit, seizure, tingling, tremors, weakness, other Endocrine: Denies: no symptoms, excessive sweating, flushing, intolerance to cold, intolerance to heat, increased hunger, increased thirst, increased urine, unexplained weight gain, unexplained weight loss, other Allergies: Coded Allergies: No Known Allergies (Unverified , 06/02/19) Subjective 06/20: awake and alert, no overnight events, v mask 06/22: plts remain low, in the 40s, off anticaog, [place] rn, pending labs 06/23: is on broad spectrum abx, fluncon, ctx, flagyl, vanc, no f/c 06/24: on tele, no overnight events, wbc at 29.8, plt count improved 06/25: ct a/p is still pending given elev wbc, off pressors in tele 06/26: wbc continues to be elev, ct a/p reviewed, potentially smaller pseudocyst, may need indium scan 06/28: s/p wbc scan, on tele, no acute distress, nc 06/29: no bleeding or chills, labs re noted, no night sweats, cbc and bmp ordered 06/30: no events, less diarrhea with iimmdium given, c. diff is neg, labs ordered Objective Objective Current Medications Medications (Trade) Dose Ordered Sig/Arley Route PRN Reason Start Time Stop Time Status Last Admin Dose Admin Acetaminophen (Tylenol) 650 mg Q4H PRN ORAL Mild Pain (Pain Scale 1-3) 06/24/19 19:00 07/15/19 18:59 06/29/19 03:41 Albumin Human 50 ml @ 50 mls/hr DAILYPRN PRN IV For hypotension 06/25/19 09:00 07/25/19 08:59 Albuterol/ Ipratropium (Albuterol/ Ipratropium) 3 ml Q4H PRN HHN Shortness of Breath 06/29/19 16:43 07/04/19 16:42 Amlodipine Besylate (Norvasc) 5 mg DAILY ORAL 06/25/19 09:00 07/24/19 08:59 06/30/19 09:17 Amylase/Lipase/ Protease (Zenpep) 3 ea THREE TIMES A DAY ORAL 06/26/19 14:00 07/26/19 13:59 06/30/19 17:33 Aspirin (ASA) 81 mg DAILY ORAL 06/25/19 09:00 07/20/19 08:59 06/30/19 09:17 Bisacodyl (Dulcolax) 10 mg DAILYPRN PRN RECTAL Constipation 06/24/19 19:00 07/24/19 18:59 Dextrose (Dextrose 50%) 25 ml Q30M PRN IV Hypoglycemia 06/24/19 18:45 07/16/19 18:05 Dextrose (Dextrose 50%) 50 ml Q30M PRN IV Hypoglycemia 06/24/19 18:45 07/16/19 18:05 Insulin Aspart (NovoLOG) AC+HS SUBQ 06/24/19 21:00 07/20/19 17:59 07/01/19 05:42 Linezolid 300 ml @ 300 mls/hr EVERY 12 HOURS IVPB 06/26/19 21:00 07/03/19 20:59 06/30/19 20:26 Loperamide HCl (Imodium) 2 mg Q4H PRN ORAL Diarrhea 06/30/19 21:30 07/30/19 21:29 07/01/19 01:29 Magnesium Hydroxide (Mom) 30 ml HSPRN PRN ORAL Constipation 06/24/19 21:00 07/15/19 20:59 Metoprolol Tartrate (Lopressor) 25 mg Q12HR ORAL 06/24/19 21:00 07/20/19 08:59 06/30/19 20:29 Ondansetron HCl (Zofran) 4 mg Q6H PRN IVP Nausea & Vomiting 06/24/19 19:00 07/24/19 18:59 Pantoprazole (Protonix) 40 mg DAILY ORAL 06/28/19 09:00 07/28/19 08:59 06/30/19 09:16 Piperacillin Sod/ Tazobactam Sod 3.375 gm/Sodium Chloride 110 ml @ 27.5 mls/hr EVERY 8 HOURS IVPB 06/28/19 14:00 07/03/19 13:59 07/01/19 05:32 Last 24 Hour Vital Signs Date Time Temp Pulse Resp B/P (MAP) Pulse Ox O2 Delivery O2 Flow Rate FiO2 07/01/19 04:00 79 07/01/19 04:00 97.3 79 22 156/64 (94) 95 07/01/19 00:00 73 07/01/19 00:00 97.5 77 20 144/69 (94) 95 06/30/19 22:00 3.0 06/30/19 21:00 Nasal Cannula 1.0 06/30/19 20:29 84 154/71 06/30/19 20:00 86 06/30/19 20:00 97.2 84 20 154/71 (98) 94 06/30/19 19:43 95 Nasal Cannula 3.0 32 06/30/19 19:43 81 18 95 Nasal Cannula 3.0 32 06/30/19 16:00 81 06/30/19 16:00 97.8 83 20 150/69 (96) 95 06/30/19 12:00 78 06/30/19 09:17 78 139/67 06/30/19 09:00 Nasal Cannula 1.0 06/30/19 09:00 78 139/67 06/30/19 07:57 97 Nasal Cannula 3.0 32 06/30/19 07:57 74 18 97 Nasal Cannula 3.0 32 06/30/19 07:52 78 06/30/19 07:51 97.0 78 20 139/67 (91) 96 06/30/19 04:00 97.3 76 19 145/65 (91) 96 06/30/19 04:00 85 06/30/19 00:00 74 06/30/19 00:00 97.5 76 19 143/63 (89) 94 06/29/19 22:00 3.0 06/29/19 21:00 Nasal Cannula 3.0 06/29/19 20:55 82 138/64 06/29/19 20:00 98.1 82 18 138/64 (88) 98 06/29/19 20:00 83 06/29/19 19:53 84 20 98 Nasal Cannula 3.0 32 06/29/19 19:53 98 Nasal Cannula 3.0 32 06/29/19 16:00 79 06/29/19 16:00 97.6 80 20 140/60 (86) 98 06/29/19 12:23 94 Nasal Cannula 3.0 32 06/29/19 12:22 79 20 94 Nasal Cannula 3.0 32 06/29/19 12:00 84 06/29/19 12:00 97.9 72 20 153/87 (109) 100 06/29/19 09:43 74 136/59 06/29/19 09:43 74 136/59 06/29/19 08:31 Nasal Cannula 3.0 06/29/19 08:00 98.1 82 19 131/83 (99) 98 06/29/19 08:00 75 Intake and Output 06/30/19 07/01/19 19:00 07:00 Intake Total 150 ml Output Total 1100 ml 1900 ml Balance -950 ml -1900 ml Intake Oral 150 ml Output Urine Total 1100 ml 1900 ml # Bowel Movements 2 2 Labs Test 06/29/19 06:25 White Blood Count 13.4 K/UL (4.8-10.8) Red Blood Count 3.50 M/UL (4.70-6.10) Hemoglobin 10.0 G/DL (14.2-18.0) Hematocrit 30.2 % (42.0-52.0) Mean Corpuscular Volume 86 FL (80-99) Mean Corpuscular Hemoglobin 28.6 PG (27.0-31.0) Mean Corpuscular Hemoglobin Concent 33.1 G/DL (32.0-36.0) Red Cell Distribution Width 12.9 % (11.6-14.8) Platelet Count 208 K/UL (150-450) Mean Platelet Volume 9.3 FL (6.5-10.1) Neutrophils (%) (Auto) 84.9 % (45.0-75.0) Lymphocytes (%) (Auto) 5.9 % (20.0-45.0) Monocytes (%) (Auto) 7.3 % (1.0-10.0) Eosinophils (%) (Auto) 0.9 % (0.0-3.0) Basophils (%) (Auto) 0.9 % (0.0-2.0) Sodium Level 139 MMOL/L (136-145) Potassium Level 4.2 MMOL/L (3.5-5.1) Chloride Level 107 MMOL/L (98-107) Carbon Dioxide Level 25 MMOL/L (21-32) Anion Gap 8 mmol/L (5-15) Blood Urea Nitrogen 33 mg/dL (7-18) Creatinine 2.0 MG/DL (0.55-1.30) Estimat Glomerular Filtration Rate 32.9 mL/min (>60) Glucose Level 162 MG/DL (74-106) Calcium Level 7.7 MG/DL (8.5-10.1) Total Bilirubin 0.4 MG/DL (0.2-1.0) Aspartate Amino Transf (AST/SGOT) 12 U/L (15-37) Alanine Aminotransferase (ALT/SGPT) 14 U/L (12-78) Alkaline Phosphatase 48 U/L (46-116) Total Protein 4.8 G/DL (6.4-8.2) Albumin 1.4 G/DL (3.4-5.0) Globulin 3.4 g/dL Albumin/Globulin Ratio 0.4 (1.0-2.7) Amylase Level 124 U/L (25-115) Lipase 519 U/L (73-393) Height (Feet): 5 Height (Inches): 7.00 Weight (Pounds): 245 Objective PE General Appearance: no apparent distress, alert HEENT: atraumatic, anicteric Neck: normal alignment, supple Respiratory/Chest: lungs clear, normal breath sounds, no respiratory distress. NC+ Cardiovascular/Chest: normal rate, regular rhythm Abdomen: non tender, soft, no organomegaly Extremities: non-tender, normal inspection Skin Exam: warm/dry, cyanotic Neurologic: alert Gu: ++ Kana Goyal MD Jul 01, 2019 06:19
[2019-07-01 06:37] LABS: BASOPHILS % (AUTO) 1.5 % (0.0-2.0); EOSINOPHILS % (AUTO) 1.1 % (0.0-3.0); HEMATOCRIT 29.9 % (42.0-52.0); LYMPHOCYTES % (AUTO) 7.5 % (20.0-45.0); MEAN CORPUSCULAR VOLUME 86 FL (80-99); MONOCYTES % (AUTO) 7.3 % (1.0-10.0); NEUTROPHILS % (AUTO) 82.6 % (45.0-75.0); PLATELET COUNT 170 K/UL (150-450); RED BLOOD COUNT 3.48 M/UL (4.70-6.10); WHITE BLOOD COUNT 11.2 K/UL (4.8-10.8)
--- NOTE | 2019-07-01 07:05 | NUR ---
NURSE NOTES: Received report from Hawa/RN, Patient is asleep, Lying semi-badillo's, resting comfortably. On 3L nasal canula, No acute distress/SOB noted. Breathing unlabored and even. Able to make needs known, Denies pain at this time. IV on Left hand G-20, no bleeding or infiltration noted. Bed in low position and locked, bed alarm engaged, Side rails up x2. call light within reach. Encouraged to use call light when needed. Will continue plan of care.
[2019-07-01 07:52] LABS: ANION GAP 11 mmol/L (5-15); BLOOD UREA NITROGEN 21 mg/dL (7-18); CALCIUM 7.8 MG/DL (8.5-10.1); CARBON DIOXIDE 21 MMOL/L (21-32); CHLORIDE 109 MMOL/L (98-107); CREATININE 1.5 MG/DL (0.55-1.30); POTASSIUM 3.7 MMOL/L (3.5-5.1); SODIUM 141 MMOL/L (136-145)
[2019-07-01 08:00] VITALS: BP 158/80
[2019-07-01] MEDS: Aspirin Baby 81mg ORAL SCH (09:23)
[2019-07-01] MEDS: Pancrelipase Dr Cap ORAL SCH ×3 (09:24→17:26)
--- NOTE | 2019-07-01 10:00 | General Progress Note ---
Assessment/Plan Problem List: (1) Acute kidney injury superimposed on CKD ICD Codes: N17.9 - Acute kidney failure, unspecified; N18.9 - Chronic kidney disease, unspecified SNOMED: 13865949, [id number] (2) Sepsis ICD Codes: A41.9 - Sepsis, unspecified organism SNOMED: 98760788 Qualifiers: Qualified Codes: A41.9 - Sepsis, unspecified organism; R65.21 - Severe sepsis with septic shock; N17.9 - Acute kidney failure, unspecified (3) Elevated troponin ICD Codes: R79.89 - Other specified abnormal findings of blood chemistry SNOMED: 631085758, [id number], [id number] Status: unchanged Assessment/Plan: anemia esophagitis CM pancreatic pseudocyst CAD obesity sepsis on low fat diet patient will need EUS but given elevated trop will hold for now repeat CT reviewed abx per id fu cardiology ad nephrology repeat labs in am ppi pancreolipase Subjective ROS Limited/Unobtainable: Yes Allergies: Coded Allergies: No Known Allergies (Unverified , 06/02/19) Objective Last 24 Hour Vital Signs Date Time Temp Pulse Resp B/P (MAP) Pulse Ox O2 Delivery O2 Flow Rate FiO2 07/01/19 09:24 91 158/80 07/01/19 09:23 91 158/80 07/01/19 08:00 98.1 91 20 158/80 (106) 96 07/01/19 08:00 82 07/01/19 07:20 91 18 91 Room Air 21 07/01/19 07:15 91 Room Air 21 07/01/19 04:00 79 07/01/19 04:00 97.3 79 22 156/64 (94) 95 07/01/19 00:00 73 07/01/19 00:00 97.5 77 20 144/69 (94) 95 06/30/19 22:00 3.0 06/30/19 21:00 Nasal Cannula 1.0 06/30/19 20:29 84 154/71 06/30/19 20:00 86 06/30/19 20:00 97.2 84 20 154/71 (98) 94 06/30/19 19:43 95 Nasal Cannula 3.0 32 06/30/19 19:43 81 18 95 Nasal Cannula 3.0 32 06/30/19 16:00 81 06/30/19 16:00 97.8 83 20 150/69 (96) 95 06/30/19 12:00 78 Intake and Output 06/30/19 07/01/19 19:00 07:00 Intake Total 150 ml Output Total 1100 ml 1900 ml Balance -950 ml -1900 ml Intake Oral 150 ml Output Urine Total 1100 ml 1900 ml # Bowel Movements 2 2 Laboratory Tests 07/01/19 04:45: White Blood Count 11.2H, Red Blood Count 3.48L, Hemoglobin 10.0L, Hematocrit 29.9L, Mean Corpuscular Volume 86, Mean Corpuscular Hemoglobin 28.7, Mean Corpuscular Hemoglobin Concent 33.5, Red Cell Distribution Width 13.0, Platelet Count 170, Mean Platelet Volume 8.0, Neutrophils (%) (Auto) 82.6H, Lymphocytes ( %) (Auto) 7.5L, Monocytes (%) (Auto) 7.3, Eosinophils (%) (Auto) 1.1, Basophils (%) (Auto) 1.5, Sodium Level 141, Potassium Level 3.7, Chloride Level 109H, Carbon Dioxide Level 21, Anion Gap 11, Blood Urea Nitrogen 21H, Creatinine 1.5H , Estimat Glomerular Filtration Rate 45.9, Glucose Level 145H, Calcium Level 7.8L Height (Feet): 5 Height (Inches): 7.00 Weight (Pounds): 245 General Appearance: alert EENT: normal ENT inspection Neck: supple Cardiovascular: normal rate Respiratory/Chest: decreased breath sounds Abdomen: normal bowel sounds, non tender, soft Extremities: non-tender Peyman Akbar MD Jul 01, 2019 10:00
--- NOTE | 2019-07-01 10:27 | Cardiology Progress Note ---
Assessment/Plan Status: stable Assessment/Plan Assessment/Plan 73 year old man with HTN, IDDM, ? history of CVA who presented to [facility] ED with nausea,vomiting and hypertensive urgency and SOB -Empiric ABX and IV fluids -> WBC now normal, no fevers, cultures negative -BiPAP prn, continue pulmonary rehab/toilet/CPT, serial chest x ray -V/Q and LE US negative for thrombus, CXR with cardiomegaly and interstitial prominence -Echocardiogram with LVEF 40% and PA pressure 55 mmHG and elevated right atrial pressures. -Continue diuresis to lower filling pressures, recommend repeating limited Echocardiogram once dry weight achieved to re-evaluate pulmonary/filling pressures -Continue low dose metoprolol 25 mg BID for systolic dysfunction and titrate -Start aldactone when creatinine <1.5, currently ARB/ACEI held due to ZARINA/ATN -Stress test negative -ok to d/c from cardiac standpoint Subjective Cardiovascular: Reports: no symptoms Respiratory: Reports: no symptoms Gastrointestinal/Abdominal: Reports: no symptoms Genitourinary: Reports: no symptoms Subjective Patient stable on floors, no acute events, vitals stable, Stress test negative for ischemia Objective Last 24 Hour Vital Signs Date Time Temp Pulse Resp B/P (MAP) Pulse Ox O2 Delivery O2 Flow Rate FiO2 07/01/19 09:24 91 158/80 07/01/19 09:23 91 158/80 07/01/19 09:00 Nasal Cannula 1.0 07/01/19 08:00 98.1 91 20 158/80 (106) 96 07/01/19 08:00 82 07/01/19 07:20 91 18 91 Room Air 21 07/01/19 07:15 91 Room Air 21 07/01/19 04:00 79 07/01/19 04:00 97.3 79 22 156/64 (94) 95 07/01/19 00:00 73 07/01/19 00:00 97.5 77 20 144/69 (94) 95 06/30/19 22:00 3.0 06/30/19 21:00 Nasal Cannula 1.0 06/30/19 20:29 84 154/71 06/30/19 20:00 86 06/30/19 20:00 97.2 84 20 154/71 (98) 94 06/30/19 19:43 95 Nasal Cannula 3.0 32 06/30/19 19:43 81 18 95 Nasal Cannula 3.0 32 06/30/19 16:00 81 06/30/19 16:00 97.8 83 20 150/69 (96) 95 06/30/19 12:00 78 General Appearance: no apparent distress, alert EENT: PERRL/EOMI, normal ENT inspection, TMs normal, pharynx normal Neck: non-tender, normal alignment, supple, normal inspection, no JVD Rhythm: NSR Cardiovascular: normal peripheral pulses, normal rate, regular rhythm Respiratory/Chest: chest wall non-tender, lungs clear, normal breath sounds, no respiratory distress, no accessory muscle use Abdomen: normal bowel sounds, non tender, soft, no organomegaly, no mass Extremities: normal range of motion, non-tender 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, no motor/sensory deficits Intake and Output 06/30/19 07/01/19 19:00 07:00 Intake Total 150 ml Output Total 1100 ml 1900 ml Balance -950 ml -1900 ml Intake Oral 150 ml Output Urine Total 1100 ml 1900 ml # Bowel Movements 2 2 Laboratory Tests Test 07/01/19 04:45 White Blood Count 11.2 K/UL (4.8-10.8) H Red Blood Count 3.48 M/UL (4.70-6.10) L Hemoglobin 10.0 G/DL (14.2-18.0) L Hematocrit 29.9 % (42.0-52.0) L Mean Corpuscular Volume 86 FL (80-99) Mean Corpuscular Hemoglobin 28.7 PG (27.0-31.0) Mean Corpuscular Hemoglobin Concent 33.5 G/DL (32.0-36.0) Red Cell Distribution Width 13.0 % (11.6-14.8) Platelet Count 170 K/UL (150-450) Mean Platelet Volume 8.0 FL (6.5-10.1) Neutrophils (%) (Auto) 82.6 % (45.0-75.0) H Lymphocytes (%) (Auto) 7.5 % (20.0-45.0) L Monocytes (%) (Auto) 7.3 % (1.0-10.0) Eosinophils (%) (Auto) 1.1 % (0.0-3.0) Basophils (%) (Auto) 1.5 % (0.0-2.0) Sodium Level 141 MMOL/L (136-145) Potassium Level 3.7 MMOL/L (3.5-5.1) Chloride Level 109 MMOL/L (98-107) H Carbon Dioxide Level 21 MMOL/L (21-32) Anion Gap 11 mmol/L (5-15) Blood Urea Nitrogen 21 mg/dL (7-18) H Creatinine 1.5 MG/DL (0.55-1.30) H Estimat Glomerular Filtration Rate 45.9 mL/min (>60) Glucose Level 145 MG/DL (74-106) H Calcium Level 7.8 MG/DL (8.5-10.1) L Microbiology Date/Time Source Procedure Growth Status 06/30/19 18:00 Stool Clostridium difficile Toxin Assay - Final Complete Filsojudith,Paul Plascencia MD Jul 01, 2019 10:27
--- NOTE | 2019-07-01 11:35 | Pulmonology Progress Note ---
Assessment/Plan Problems: (1) Sepsis (2) Hypoxia (3) Left upper quadrant abdominal mass (4) Thrombocytopenia Assessment & Plan: Recovered Hit Ab panel neg (5) Acute kidney injury superimposed on CKD Assessment/Plan Optimize pulmonary hygiene/mobilize as tolerated Needs to get OOB Needs an outpatient PSG and PFT PRN O2 PRN HHN's Monitor volumes and renal function ABx per ID, F/U Cx's F/U cards recs ---> plan for repeat TTE when euvolemic F/U GI recs ---> ? can EUS be done now that stress test negative ASPIRATION precautions DVT Px: SCD's FC Subjective Allergies: Coded Allergies: No Known Allergies (Unverified , 06/02/19) Subjective AFVSS on 1L CT chest with BLL inf/opac/atx and small effusions Stress test negative for ischemia Weak cough no SOB no FC no CP Objective Last 24 Hour Vital Signs Date Time Temp Pulse Resp B/P (MAP) Pulse Ox O2 Delivery O2 Flow Rate FiO2 07/01/19 09:24 91 158/80 07/01/19 09:23 91 158/80 07/01/19 09:00 Nasal Cannula 1.0 07/01/19 08:00 98.1 91 20 158/80 (106) 96 07/01/19 08:00 82 07/01/19 07:20 91 18 91 Room Air 21 07/01/19 07:15 91 Room Air 21 07/01/19 04:00 79 07/01/19 04:00 97.3 79 22 156/64 (94) 95 07/01/19 00:00 73 07/01/19 00:00 97.5 77 20 144/69 (94) 95 06/30/19 22:00 3.0 06/30/19 21:00 Nasal Cannula 1.0 06/30/19 20:29 84 154/71 06/30/19 20:00 86 06/30/19 20:00 97.2 84 20 154/71 (98) 94 06/30/19 19:43 95 Nasal Cannula 3.0 32 06/30/19 19:43 81 18 95 Nasal Cannula 3.0 32 06/30/19 16:00 81 06/30/19 16:00 97.8 83 20 150/69 (96) 95 06/30/19 12:00 78 Intake and Output 06/30/19 07/01/19 19:00 07:00 Intake Total 150 ml Output Total 1100 ml 1900 ml Balance -950 ml -1900 ml Intake Oral 150 ml Output Urine Total 1100 ml 1900 ml # Bowel Movements 2 2 Objective Ob M General Appearance: no acute distress, other - ob M HEENT: normocephalic, atraumatic, anicteric, mucous membranes moist Respiratory/Chest: rhonchi - at bases only Cardiovascular: normal peripheral pulses, normal rate, regular rhythm Abdomen: normal bowel sounds, soft, non tender, no organomegaly, non distended , no mass Extremities: no cyanosis, no clubbing, no edema Microbiology Date/Time Source Procedure Growth Status 06/30/19 18:00 Stool Clostridium difficile Toxin Assay - Final Complete Laboratory Tests 07/01/19 04:45: White Blood Count 11.2H, Red Blood Count 3.48L, Hemoglobin 10.0L, Hematocrit 29.9L, Mean Corpuscular Volume 86, Mean Corpuscular Hemoglobin 28.7, Mean Corpuscular Hemoglobin Concent 33.5, Red Cell Distribution Width 13.0, Platelet Count 170, Mean Platelet Volume 8.0, Neutrophils (%) (Auto) 82.6H, Lymphocytes ( %) (Auto) 7.5L, Monocytes (%) (Auto) 7.3, Eosinophils (%) (Auto) 1.1, Basophils (%) (Auto) 1.5, Sodium Level 141, Potassium Level 3.7, Chloride Level 109H, Carbon Dioxide Level 21, Anion Gap 11, Blood Urea Nitrogen 21H, Creatinine 1.5H , Estimat Glomerular Filtration Rate 45.9, Glucose Level 145H, Calcium Level 7.8L Current Medications Medications (Trade) Dose Ordered Sig/Arley Route PRN Reason Start Time Stop Time Status Last Admin Dose Admin Acetaminophen (Tylenol) 650 mg Q4H PRN ORAL Mild Pain (Pain Scale 1-3) 06/24/19 19:00 07/15/19 18:59 06/29/19 03:41 Albumin Human 50 ml @ 50 mls/hr DAILYPRN PRN IV For hypotension 06/25/19 09:00 07/25/19 08:59 Albuterol/ Ipratropium (Albuterol/ Ipratropium) 3 ml Q4H PRN HHN Shortness of Breath 06/29/19 16:43 07/04/19 16:42 Amlodipine Besylate (Norvasc) 5 mg DAILY ORAL 06/25/19 09:00 07/24/19 08:59 07/01/19 09:24 Amylase/Lipase/ Protease (Zenpep) 3 ea THREE TIMES A DAY ORAL 06/26/19 14:00 07/26/19 13:59 07/01/19 09:24 Aspirin (ASA) 81 mg DAILY ORAL 06/25/19 09:00 07/20/19 08:59 07/01/19 09:23 Bisacodyl (Dulcolax) 10 mg DAILYPRN PRN RECTAL Constipation 06/24/19 19:00 07/24/19 18:59 Dextrose (Dextrose 50%) 25 ml Q30M PRN IV Hypoglycemia 06/24/19 18:45 07/16/19 18:05 Dextrose (Dextrose 50%) 50 ml Q30M PRN IV Hypoglycemia 06/24/19 18:45 07/16/19 18:05 Insulin Aspart (NovoLOG) AC+HS SUBQ 06/24/19 21:00 07/20/19 17:59 07/01/19 05:42 Linezolid 300 ml @ 300 mls/hr EVERY 12 HOURS IVPB 06/26/19 21:00 07/03/19 20:59 07/01/19 09:22 Loperamide HCl (Imodium) 2 mg Q4H PRN ORAL Diarrhea 06/30/19 21:30 07/30/19 21:29 07/01/19 01:29 Magnesium Hydroxide (Mom) 30 ml HSPRN PRN ORAL Constipation 06/24/19 21:00 07/15/19 20:59 Metoprolol Tartrate (Lopressor) 25 mg Q12HR ORAL 06/24/19 21:00 07/20/19 08:59 07/01/19 09:23 Ondansetron HCl (Zofran) 4 mg Q6H PRN IVP Nausea & Vomiting 06/24/19 19:00 07/24/19 18:59 Pantoprazole (Protonix) 40 mg DAILY ORAL 06/28/19 09:00 07/28/19 08:59 07/01/19 09:24 Piperacillin Sod/ Tazobactam Sod 3.375 gm/Sodium Chloride 110 ml @ 27.5 mls/hr EVERY 8 HOURS IVPB 06/28/19 14:00 07/03/19 13:59 07/01/19 05:32 Homero Moran MD Jul 01, 2019 11:35
[2019-07-01 12:00] VITALS: BP 155/71
--- NOTE | 2019-07-01 12:28 | Nephrology Progress Note ---
Assessment/Plan Plan #acute kidney injury - on baseline CKD- Fena 0.4% suggestive of pre-renal aztemia- however UA with sediments and RBC concerning for developing ATN- patient with baseline diabetic nephropathy -Cr uptrended today #sepsis #acute pancreatitis- improved # Hypokalemia, hypopmagnesemia - repleted #lactic acidosis- improved #HTN- stable #DM- controlled #NSTEMI #hypernatremia - improved #eliana on CKD - baseline Cr in mid to high 1s- now worsening in the setting of sepsis and possibly vanco induced #metabolic acidosis - due to renal insufficiency - monitor off IVF - monitor Cr - Cr 1.5 today - dc sodium bicarb 650mg TID - ok to resume lisinopril tomorrow #sepsis - antibiotics per ID- zosyn and zyvox, avoid nephrotoxic antibiotics - avoid supratherapeutic vanco level - monitor WBC #troponemia - heparin on hold for thrombocytopenia - HIT? - cardiology eval - stress test neg #HTN - ok to resume lisinopril tomorrow -increase amldipine to 10mg daily - metop 25mg BID #DM - hold metformin - ISS Subjective Subjective Stress test neg Breathing stable today - on NC Cr 1.5 on zosyn and zyvox BP elevated will increase amlodipine to 10 Objective Objective Last 24 Hour Vital Signs Date Time Temp Pulse Resp B/P (MAP) Pulse Ox O2 Delivery O2 Flow Rate FiO2 07/01/19 09:24 91 158/80 07/01/19 09:23 91 158/80 07/01/19 09:00 Nasal Cannula 1.0 07/01/19 08:00 98.1 91 20 158/80 (106) 96 07/01/19 08:00 82 07/01/19 07:20 91 18 91 Room Air 21 07/01/19 07:15 91 Room Air 21 07/01/19 04:00 79 07/01/19 04:00 97.3 79 22 156/64 (94) 95 07/01/19 00:00 73 07/01/19 00:00 97.5 77 20 144/69 (94) 95 06/30/19 22:00 3.0 06/30/19 21:00 Nasal Cannula 1.0 06/30/19 20:29 84 154/71 3/9/20 20:00 86 06/30/19 20:00 97.2 84 20 154/71 (98) 94 06/30/19 19:43 95 Nasal Cannula 3.0 32 06/30/19 19:43 81 18 95 Nasal Cannula 3.0 32 06/30/19 16:00 81 06/30/19 16:00 97.8 83 20 150/69 (96) 95 Intake and Output 06/30/19 07/01/19 19:00 07:00 Intake Total 150 ml Output Total 1100 ml 1900 ml Balance -950 ml -1900 ml Intake Oral 150 ml Output Urine Total 1100 ml 1900 ml # Bowel Movements 2 2 Laboratory Tests 07/01/19 04:45: White Blood Count 11.2H, Red Blood Count 3.48L, Hemoglobin 10.0L, Hematocrit 29.9L, Mean Corpuscular Volume 86, Mean Corpuscular Hemoglobin 28.7, Mean Corpuscular Hemoglobin Concent 33.5, Red Cell Distribution Width 13.0, Platelet Count 170, Mean Platelet Volume 8.0, Neutrophils (%) (Auto) 82.6H, Lymphocytes ( %) (Auto) 7.5L, Monocytes (%) (Auto) 7.3, Eosinophils (%) (Auto) 1.1, Basophils (%) (Auto) 1.5, Sodium Level 141, Potassium Level 3.7, Chloride Level 109H, Carbon Dioxide Level 21, Anion Gap 11, Blood Urea Nitrogen 21H, Creatinine 1.5H , Estimat Glomerular Filtration Rate 45.9, Glucose Level 145H, Calcium Level 7.8L Height (Feet): 5 Height (Inches): 7.00 Weight (Pounds): 245 Objective General Appearance: Alert - no distress Lines, tubes and drains: peripheral HEENT: normocephalic, atraumatic Neck: non-tender, normal alignment Respiratory/Chest: chest wall non-tender, lungs clear, normal breath sounds Cardiovascular/Chest: normal rate, regular rhythm Abdomen: normal bowel sounds, non tender, soft Extremities: non-tender, normal inspection Skin Exam: normal pigmentation, no diaphoresis Gerson Salgado M.D. Jul 01, 2019 12:28
--- NOTE | 2019-07-01 13:07 | Surgery Progress Note ---
Surgery Progress Note Subjective Additional Comments continues to lay supine without turning much nm study noted labs reviewed Objective Last 24 Hour Vital Signs Date Time Temp Pulse Resp B/P (MAP) Pulse Ox O2 Delivery O2 Flow Rate FiO2 07/01/19 12:00 97.7 73 20 155/71 (99) 93 07/01/19 09:24 91 158/80 07/01/19 09:23 91 158/80 07/01/19 09:00 Nasal Cannula 1.0 07/01/19 08:00 98.1 91 20 158/80 (106) 96 07/01/19 08:00 82 07/01/19 07:20 91 18 91 Room Air 21 07/01/19 07:15 91 Room Air 21 07/01/19 04:00 79 07/01/19 04:00 97.3 79 22 156/64 (94) 95 07/01/19 00:00 73 07/01/19 00:00 97.5 77 20 144/69 (94) 95 06/30/19 22:00 3.0 06/30/19 21:00 Nasal Cannula 1.0 06/30/19 20:29 84 154/71 06/30/19 20:00 86 06/30/19 20:00 97.2 84 20 154/71 (98) 94 06/30/19 19:43 95 Nasal Cannula 3.0 32 06/30/19 19:43 81 18 95 Nasal Cannula 3.0 32 06/30/19 16:00 81 06/30/19 16:00 97.8 83 20 150/69 (96) 95 I&O Intake and Output 06/30/19 07/01/19 19:00 07:00 Intake Total 150 ml Output Total 1100 ml 1900 ml Balance -950 ml -1900 ml Intake Oral 150 ml Output Urine Total 1100 ml 1900 ml # Bowel Movements 2 2 Dressing: other Wound: other Drains: other Cardiovascular: RSR Respiratory: decreased breath sounds Abdomen: soft, present bowel sounds Extremities: no edema, no tenderness, no cyanosis Laboratory Tests Test 07/01/19 04:45 White Blood Count 11.2 K/UL (4.8-10.8) H Red Blood Count 3.48 M/UL (4.70-6.10) L Hemoglobin 10.0 G/DL (14.2-18.0) L Hematocrit 29.9 % (42.0-52.0) L Mean Corpuscular Volume 86 FL (80-99) Mean Corpuscular Hemoglobin 28.7 PG (27.0-31.0) Mean Corpuscular Hemoglobin Concent 33.5 G/DL (32.0-36.0) Red Cell Distribution Width 13.0 % (11.6-14.8) Platelet Count 170 K/UL (150-450) Mean Platelet Volume 8.0 FL (6.5-10.1) Neutrophils (%) (Auto) 82.6 % (45.0-75.0) H Lymphocytes (%) (Auto) 7.5 % (20.0-45.0) L Monocytes (%) (Auto) 7.3 % (1.0-10.0) Eosinophils (%) (Auto) 1.1 % (0.0-3.0) Basophils (%) (Auto) 1.5 % (0.0-2.0) Sodium Level 141 MMOL/L (136-145) Potassium Level 3.7 MMOL/L (3.5-5.1) Chloride Level 109 MMOL/L (98-107) H Carbon Dioxide Level 21 MMOL/L (21-32) Anion Gap 11 mmol/L (5-15) Blood Urea Nitrogen 21 mg/dL (7-18) H Creatinine 1.5 MG/DL (0.55-1.30) H Estimat Glomerular Filtration Rate 45.9 mL/min (>60) Glucose Level 145 MG/DL (74-106) H Calcium Level 7.8 MG/DL (8.5-10.1) L Plan Problems: (1) Sacral decubitus ulcer Assessment & Plan: Patient identified to have a stage II sacral decubitus ulcer as well as incontinence associated dermatitis in the surrounding areas. Patient with diarrhea and sometimes sits for prolonged period times in stool. He has been changes frequently as possible by nursing staff and his been instructed to let staff know when incontinence so that they can assist him in changing. A is seen at bedside today with family available. We discussed current status and reviewed the wound together. We evaluated it cleaned and applied new dressings. We discussed the formation the etiology and the prognosis. Patient is able to move on his side on his own and is able to move in bed. He states he lays comfortably on his back but is instructed to return as much as possible. I have told him that the nursing staff and even myself and my team will assist him with turning as much as possible but given the fact that he is able to move on his own it would be strongly advised to turn as often as possible to alleviate pressure on his wound or develop new wounds. I explained to them that in laying in 1 position for prolonged period time can cause worsening cubitus ulcers or new ulcers to form. Long session was had with the patient and family and care plan was initiated. Patient is very amenable to care plan and cooperative. We will continue to monitor while inpatient and ensure improvemen Pt presents with two partial thickness pressure injuries R and L buttocks with surrounding Moisture Associated Skin Damage Partial thickness pressure injury R buttocks (L)2.2cm x (W)1cm. Base of wound is moist and viable with loose skin flap along edges. No odor or exudate. Periwound erythematous with denuded skin. Partial thickness pressure injury L buttocks. Base of wound is moist and viable. Edges are macerated. Non-blanching erythema with moisture denudement periwound.No exudate noted(L)2cm x (W)3cm.Scrotum erythematous with scattered satellite lesions at base of Scrotum. Both heels are boggy with non-blanching erythema. Pt denied tenderness when each heel individually palpated. Pt noted to be incontinent of loose B.M at start of visit. Pt also demonstrated ability to reposition self in bed but according to staff on unit pt is non- compliant and lacks motivation. PT informed of pressure injuries R and L buttocks , erythematous Scrotum and risks for further Skin decline. Pt educated on comorbidities that can contribute to wounds declining. Instructed pt to call for asst with toileting and encouraged to frequently reposition ,at least hourly while in bed. Pt declined to respond to verbal instructions. Spouse visited and updated on skin breakdown . Spouse also educated of risks for further skin breakdown if pt continues to be non-compliant with repositioning and toileting. I had a long discussion at bedside today 06/30/2019 with the patient and his . I explained to patient the above findings again and we reviewed the decubitus formation and goals and plans of care for prevention as well as improvement. I have asked patient to help mobilize himself and he was able to turn to his left side following to the right side. Given his size it does take a little bit of effort but it is possible and he is able to do it on his own. I explained to patient how important it is to continue current side specially as he can do it on its own. Patient states he just wants to relax and be comfortable on his back. I explained to them how the above findings of formed and how they may worsen if he continues to do so. Patient is clearly competent and expresses understanding. I explained the patient that it would be very important for him to continue with the plan of care that we have discussed. Patient states that it should be someone at all times to help him with these things and explained to patient that nursing staff and myself are willing and helping as much as necessary but he is capable and we strongly recommend that since he has ability it would be strongly recommended for him to offload pressure as much as possible. Tx.Plan: Apply Moisture Barrier Paste to R and L buttocks. Cover with Optifoam drsg. Change every 3 days and prn. Apply Moisture Barrier Paste to Scrotum with each incontinence care. Encourage to reposition self at least hourly while in bed. Apply Cavilon Skin Barrier to each heels. Cover each heel with OPtifoam drsg. Change every 7 days and prn. Off-load heels with Pillow. (2) Incontinence associated dermatitis (3) Left upper quadrant abdominal mass Assessment & Plan: Telemetry pancreatic mass cystic large with infiltration around it worsening on recent CT. Discussed with GI and agree will need EUS but given elevated troponins and current cardiac status will await clearance and improvement prior to proceeding with EUS. The myocardial perfusion scan demonstrates large perfusion defect involving the inferior wall and apex consistent with a myocardial infarct. This extends into the inferolateral segment. IMPRESSION: Inferior and inferolateral wall infarct including the apex. No definite evidence of myocardial ischemia. Note: The study was limited because of difficulty with gating due to the patient 's irregular heart rhythm. LVEF also could not be calculated. (4) Acute pancreatitis Assessment & Plan: Lungs: Small posterior basilar pleural effusions are demonstrated. Consolidation versus atelectasis involving the lung bases bilaterally. Similar appearance on the prior occasion.. Liver: Unremarkable Gallbladder/biliary system: Gallbladder is absent. No biliary ductal dilatation seen.. Spleen: Unremarkable Pancreas: Pancreas is atrophic. Once again there is a large approximately 10 cm well-circumscribed cystic mass in the left upper quadrant associated with the tail the pancreas. This has been previously described and was seen on the last 2 CT examinations. This cyst is questionably slightly smaller. There is however moderately increased soft tissue stranding in the area surrounding the cyst anteriorly indicative of inflammation. In addition part of the splenic flexure which abuts the cyst and traverses the area of inflammation shows focal dilatation likely a localized inflammatory response or localized ileus. The degree of inflammation has significantly increased and is worse than both the prior occasions on 06/20/2019 or on 06/15/2019. In addition the degree of anasarca has increased. There is a small amount of free fluid within the abdomen which has also increased slightly since the last study. Kidneys/Bladder: No definite stone or hydronephrosis are identified. There is a probable right renal cyst again noted. The urinary bladder is nondistended. Rivero catheter in good position. Adrenal glands: Unremarkable Bowel: Unremarkable. Aorta/IVC: Aortoiliac calcifications are noted consistent with atherosclerotic disease. Peritoneum: There is mild free fluid present within the peritoneal cavity.. Bones: There is narrowing of intervertebral discs and accompanying endplate osteophyte formation. Hypertrophied facet joints also demonstrated. Generalized osteopenia noted. Moderate osteoarthritis of both hips demonstrated. IMPRESSION: Moderate increased inflammation surrounding a 10 cm cystic mass in the left upper quadrant. The cystic mass may be slightly smaller than on the previous CT examinations performed 06/20/2019 and 06/15/2019. 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 Cystic neoplasm is not excluded. Persistent small bilateral pleural effusions and underlying consolidation/atelectasis. Trace ascites. Worsening anasarca. Status post cholecystectomy. Arterial vascular disease. Benitez Sheppard Jul 01, 2019 13:07
--- NOTE | 2019-07-01 14:17 | General Progress Note ---
Assessment/Plan Status: stable Assessment/Plan: 73 y/o M with PMH HTN, IDDM, ? history of CVA who [place] [facility] [place]. On admission pt w/acute respiratory failure, initially admitted to ICU, was placed on BiPAP, pt improved and now on NC. Pt was found to have Klebsiella bacteremia, ID consulted and pt was started on zosyn and zyvox. WBC's elevated on 06/25 for which repeat BCx were drawn which are negative at this time. Pt w/elevated lipase, found to have acute pancreatitis, CT abd revealed pancreatic pseudocyst for which GI was consulted, pt will need EUS once more stable. Pt also w/NSTEMI, acute on chronic heart failure, cardio consulted and plan for stress test once more stable. #Klebsiella bacteremia #Leukocytosis - downtrending #? infected pancreatic pseudocyst, ? aspiration pna/HCAP vs atx, arf -BCx on admission pt was found to be in septic shock, now resolved, BCx + for klebsiella bacteremia -BCx / NGTD -BCx / NGTD -UCx / NGTD -on 06/25 pt w/leukocytosis, repeat BCx / NGTD -CT A/P on 06/25: with mild improvement of pseudocyst. no abscess or acute pathology identified. -indium scan ordered per ID -cont zosyn, zyvox #Chronic systolic CHF, HFrEF 40% TTE with EF ~40% Continue MTP 25 BID Cardiology following Start Aldactone when Cr < 1.5 Stress test without reversible ischemia #acute hypoxic resp failure without hypercarbia - stable off BiPAP continue inhaled bronchodilators Pulm/CCM following bipap prn and QHS #NSTEMI, peak trop of 2, likely due to demand ischemia was initially placed on heparin on admission, now off heparin Cardiology following #acute kidney injury on CKD, possible ATN - downtrending s/p IV hydration cont. to monitor BMP avoid nephrotoxic meds scr with improvement Nephrology following #acute pancreatitis #Pancreatic Pseudocyst low fat diet PPI Pancreaolipase GI following: d/w GI, pt will need EUS when more stable #Thrombocytopenia - resolved #Rule out HIT etiology likely multifactorial, likely due to sepsis cont to monitor daily CBC Hematology following - ok for DVT ppx w/heparin or lovenox when plts >50k #Hypokalemia, hypomagnesemia - resolved replaced, cont. to monitor, replace PRN #lactic acidosis #HTN cont to hold BP meds #DM type 2 ISS #Septic shock - resolved on admission pt was in ICU, now improved off pressors cont. to monitor VTE PPx - SCDs Full Code Time spent on encounter: 35 mins, >50% on counseling, coordination of care. Time of note doesn't reflect time of encounter. Subjective Date patient seen: Jul 01, 2019 Time patient seen: 13:00 ROS Limited/Unobtainable: No Constitutional: Denies: chills, fever Cardiovascular: Denies: chest pain Respiratory: Denies: cough Gastrointestinal/Abdominal: Denies: abdomen distended Neurologic/Psychiatric: Denies: anxiety, depressed Allergies: Coded Allergies: No Known Allergies (Unverified , 06/02/19) Subjective Follow up for septic shock, acute hypoxic resp failure, ZARINA, acute metabolic encephalopathy No current complaints, denies abdominal pain, nausea, vomiting Stress test negative for reversible ischemia Indium scan pending Objective Last 24 Hour Vital Signs Date Time Temp Pulse Resp B/P (MAP) Pulse Ox O2 Delivery O2 Flow Rate FiO2 07/01/19 12:00 71 07/01/19 12:00 97.7 73 20 155/71 (99) 93 07/01/19 09:24 91 158/80 07/01/19 09:23 91 158/80 07/01/19 09:00 Nasal Cannula 1.0 07/01/19 08:00 98.1 91 20 158/80 (106) 96 07/01/19 08:00 82 07/01/19 07:20 91 18 91 Room Air 21 07/01/19 07:15 91 Room Air 21 07/01/19 04:00 79 07/01/19 04:00 97.3 79 22 156/64 (94) 95 07/01/19 00:00 73 07/01/19 00:00 97.5 77 20 144/69 (94) 95 06/30/19 22:00 3.0 06/30/19 21:00 Nasal Cannula 1.0 06/30/19 20:29 84 154/71 06/30/19 20:00 86 06/30/19 20:00 97.2 84 20 154/71 (98) 94 06/30/19 19:43 95 Nasal Cannula 3.0 32 06/30/19 19:43 81 18 95 Nasal Cannula 3.0 32 06/30/19 16:00 81 06/30/19 16:00 97.8 83 20 150/69 (96) 95 Intake and Output 06/30/19 07/01/19 19:00 07:00 Intake Total 150 ml Output Total 1100 ml 1900 ml Balance -950 ml -1900 ml Intake Oral 150 ml Output Urine Total 1100 ml 1900 ml # Bowel Movements 2 2 Laboratory Tests 07/01/19 04:45: White Blood Count 11.2H, Red Blood Count 3.48L, Hemoglobin 10.0L, Hematocrit 29.9L, Mean Corpuscular Volume 86, Mean Corpuscular Hemoglobin 28.7, Mean Corpuscular Hemoglobin Concent 33.5, Red Cell Distribution Width 13.0, Platelet Count 170, Mean Platelet Volume 8.0, Neutrophils (%) (Auto) 82.6H, Lymphocytes ( %) (Auto) 7.5L, Monocytes (%) (Auto) 7.3, Eosinophils (%) (Auto) 1.1, Basophils (%) (Auto) 1.5, Sodium Level 141, Potassium Level 3.7, Chloride Level 109H, Carbon Dioxide Level 21, Anion Gap 11, Blood Urea Nitrogen 21H, Creatinine 1.5H , Estimat Glomerular Filtration Rate 45.9, Glucose Level 145H, Calcium Level 7.8L Height (Feet): 5 Height (Inches): 7.00 Weight (Pounds): 245 General Appearance: alert, lethargic Neck: supple Cardiovascular: normal rate, regular rhythm Respiratory/Chest: lungs clear, normal breath sounds Abdomen: non tender, soft, no organomegaly Harinder Ochoa MD Jul 01, 2019 14:17
[2019-07-01 16:00] VITALS: BP 156/61
--- NOTE | 2019-07-01 19:40 | NUR ---
NURSE NOTES: Received report from GANGA Francis. Patient in bed awake with son and daughter by his side. No signs of acute distress or pain noted at this time. Patient is AOx 4. IV site checked, patent and flushed. No signs of erythema, bleeding, or infiltration. Bed in the lowest position, bed alarm on, brakes on, side rails up x3, call light within reach. will continue plan of care.
--- NOTE | 2019-07-01 19:43 | NUR ---
HAND-OFF: Report given to Huyen/ GANGA, Patient in stable condition, Family at bed side. Endorsed plan of care.
[2019-07-01 20:00] VITALS: BP 144/60
[2019-07-02] VITALS: BP 157/69
[2019-07-02 04:00] VITALS: BP 160/74
[2019-07-02] MEDS: Piperacillin/Tazobactam 3.375 GM in NS 110 ML IVPB SCH ×3 (05:44→21:51)
[2019-07-02] MEDS: NovoLOG Insulin Flexpen SUBQ SCH ×4 (05:49→20:22)
--- NOTE | 2019-07-02 06:16 | Hematology/Onc Progress Note ---
Assessment/Plan Assessment/Plan Assessment and recs: # Leukocytosis with hx of infection, hx klebsiella bacteremia, sepsis, leukocytosis, infected pancreatic pseudocyst, ? aspiration pna/HCAP vs atx, arf , CT abdomen and pelvis noted -> ct a/p reviewed --> wbc 15-->30-->24-->13.4-->10 --> on vanc/zosyn # 10.7 cm unilocular cystic structure in the left upper quadrant retroperitoneal , corresponding to findings reported on recent CT scan. Most likely represents a pancreatic pseudocyst. --> continue to monitor as per gi --> repeat us or ct in short order, weeks to months to re-eval --> repeat ct showed mild enlargement of cyst/mass, will need further repeat imaging --> may need indium scan # Thrombocytopenia - potential causes multifactorial, in this case due to sepsis , less likely due to heparin --> Hep panel and HIV are negative --> US abd to evaluate for cirrhosis and hsm ordered and none noted --> Peripheral smear ordered to evaluate for blasts /schistocytes --> abx and other meds have been reviewed --> ok for ppx if plt >50k w/ either heparin or lovenox --> Transfuse if Plt < 20k and fever, or if Plt < 10k without fever --> plt trend 41-->49k-->63k-->110-->208 # DM, ? history of CVA who presented [place] [facility] [place] [facility] with [place],vomiting. --> a1c goal <8, accuchecks qac/qhs # Septic shock, POA, possible biliary source --> cont ICU level of care --> cont IV hydration --> on abx, as per pulm/cc # Acute hypoxic resp failure without hypercarbia --> Intermittent BiPAP --> continue inhaled bronchodilators # NSTEMI, peak trop of 2, likely due to demand ischemia --> Stop heparin due to thrombocytopenia --> duplex lower legs is neg --> HIT neg --> per cards # Acute kidney injury on CKD, possible ATN --> Nephrology following # Acute pancreatitis --> hydration # HTN --> cont to hold BP meds # DM type 2 --> ISS # Dvt ppx scds Appreciate consultation and dw Rn Subjective Constitutional: Denies: no symptoms, chills, fever, malaise, weakness, other HEENT: Denies: no symptoms, eye pain, blurred vision, tearing, double vision, ear pain, ear discharge, nose pain, nose congestion, throat pain, throat swelling, mouth pain, mouth swelling, other Cardiovascular: Denies: no symptoms, chest pain, edema, irregular heart rate, lightheadedness, palpitations, syncope, other Respiratory: Denies: no symptoms, cough, shortness of breath, SOB with excertion, SOB at rest, sputum, wheezing, other Gastrointestinal/Abdominal: Denies: no symptoms, abdomen distended, abdominal pain, black stools, tarry stools, blood in stool, constipated, diarrhea, difficulty swallowing, nausea, poor appetite, poor fluid intake, rectal bleeding , vomiting, other Genitourinary: Denies: no symptoms, burning, discharge, frequency, flank pain, hematuria, incontinence, pain, urgency, other Neurologic/Psychiatric: Denies: no symptoms, anxiety, depressed, emotional problems, headache, numbness, paresthesia, pre-existing deficit, seizure, tingling, tremors, weakness, other Endocrine: Denies: no symptoms, excessive sweating, flushing, intolerance to cold, intolerance to heat, increased hunger, increased thirst, increased urine, unexplained weight gain, unexplained weight loss, other Hematologic/Lymphatic: Denies: no symptoms, anemia, easy bleeding, easy bruising, adenopathy, other Allergies: Coded Allergies: No Known Allergies (Unverified , 06/02/19) Subjective 06/20: awake and alert, no overnight events, v mask 06/22: plts remain low, in the 40s, off anticaog, [place] rn, pending labs 06/23: is on broad spectrum abx, fluncon, ctx, flagyl, vanc, no f/c 06/24: on tele, no overnight events, wbc at 29.8, plt count improved 06/25: ct a/p is still pending given elev wbc, off pressors in tele 06/26: wbc continues to be elev, ct a/p reviewed, potentially smaller pseudocyst, may need indium scan 06/28: s/p wbc scan, on tele, no acute distress, nc 06/29: no bleeding or chills, labs re noted, no night sweats, cbc and bmp ordered 06/30: no events, less diarrhea with iimmdium given, c. diff is neg, labs ordered 07/01: sleeping comfortably, no events, wbc has improved, cbc pending Objective Objective Current Medications Medications (Trade) Dose Ordered Sig/Arley Route PRN Reason Start Time Stop Time Status Last Admin Dose Admin Acetaminophen (Tylenol) 650 mg Q4H PRN ORAL Mild Pain (Pain Scale 1-3) 06/24/19 19:00 07/15/19 18:59 06/29/19 03:41 Albumin Human 50 ml @ 50 mls/hr DAILYPRN PRN IV For hypotension 06/25/19 09:00 07/25/19 08:59 Albuterol/ Ipratropium (Albuterol/ Ipratropium) 3 ml Q4H PRN HHN Shortness of Breath 06/29/19 16:43 07/04/19 16:42 Amlodipine Besylate (Norvasc) 10 mg DAILY ORAL 07/02/19 09:00 07/24/19 08:59 Amylase/Lipase/ Protease (Zenpep) 3 ea THREE TIMES A DAY ORAL 06/26/19 14:00 07/26/19 13:59 07/01/19 17:26 Aspirin (ASA) 81 mg DAILY ORAL 06/25/19 09:00 07/20/19 08:59 07/01/19 09:23 Bisacodyl (Dulcolax) 10 mg DAILYPRN PRN RECTAL Constipation 06/24/19 19:00 07/24/19 18:59 Dextrose (Dextrose 50%) 25 ml Q30M PRN IV Hypoglycemia 06/24/19 18:45 07/16/19 18:05 Dextrose (Dextrose 50%) 50 ml Q30M PRN IV Hypoglycemia 06/24/19 18:45 07/16/19 18:05 Insulin Aspart (NovoLOG) AC+HS SUBQ 06/24/19 21:00 07/20/19 17:59 07/01/19 21:49 Linezolid 300 ml @ 300 mls/hr EVERY 12 HOURS IVPB 06/26/19 21:00 07/03/19 20:59 07/01/19 21:47 Loperamide HCl (Imodium) 2 mg Q4H PRN ORAL Diarrhea 06/30/19 21:30 07/30/19 21:29 07/01/19 01:29 Magnesium Hydroxide (Mom) 30 ml HSPRN PRN ORAL Constipation 06/24/19 21:00 07/15/19 20:59 Metoprolol Tartrate (Lopressor) 25 mg Q12HR ORAL 06/24/19 21:00 07/20/19 08:59 07/01/19 21:46 Ondansetron HCl (Zofran) 4 mg Q6H PRN IVP Nausea & Vomiting 06/24/19 19:00 07/24/19 18:59 Pantoprazole (Protonix) 40 mg DAILY ORAL 06/28/19 09:00 07/28/19 08:59 07/01/19 09:24 Piperacillin Sod/ Tazobactam Sod 3.375 gm/Sodium Chloride 110 ml @ 27.5 mls/hr EVERY 8 HOURS IVPB 06/28/19 14:00 07/03/19 13:59 07/02/19 05:44 Last 24 Hour Vital Signs Date Time Temp Pulse Resp B/P (MAP) Pulse Ox O2 Delivery O2 Flow Rate FiO2 07/02/19 04:00 77 07/02/19 04:00 96.6 78 20 160/74 (102) 96 07/02/19 00:00 75 07/02/19 00:00 97.9 71 20 157/69 (98) 97 07/01/19 21:46 76 144/60 07/01/19 21:00 Nasal Cannula 1.0 07/01/19 20:00 98.1 76 20 144/60 (88) 95 07/01/19 20:00 78 07/01/19 19:04 93 Room Air 21 07/01/19 19:04 84 18 93 Room Air 21 07/01/19 16:00 97.5 75 20 156/61 (92) 96 07/01/19 16:00 78 07/01/19 12:00 71 07/01/19 12:00 97.7 73 20 155/71 (99) 93 07/01/19 09:24 91 158/80 07/01/19 09:23 91 158/80 07/01/19 09:00 Nasal Cannula 1.0 07/01/19 08:00 98.1 91 20 158/80 (106) 96 07/01/19 08:00 82 07/01/19 07:20 91 18 91 Room Air 21 07/01/19 07:15 91 Room Air 21 07/01/19 04:00 79 07/01/19 04:00 97.3 79 22 156/64 (94) 95 07/01/19 00:00 73 07/01/19 00:00 97.5 77 20 144/69 (94) 95 06/30/19 22:00 3.0 06/30/19 21:00 Nasal Cannula 1.0 06/30/19 20:29 84 154/71 06/30/19 20:00 86 06/30/19 20:00 97.2 84 20 154/71 (98) 94 06/30/19 19:43 95 Nasal Cannula 3.0 32 06/30/19 19:43 81 18 95 Nasal Cannula 3.0 32 06/30/19 16:00 81 06/30/19 16:00 97.8 83 20 150/69 (96) 95 06/30/19 12:00 78 06/30/19 09:17 78 139/67 06/30/19 09:00 Nasal Cannula 1.0 06/30/19 09:00 78 139/67 06/30/19 07:57 97 Nasal Cannula 3.0 32 06/30/19 07:57 74 18 97 Nasal Cannula 3.0 32 06/30/19 07:52 78 06/30/19 07:51 97.0 78 20 139/67 (91) 96 Intake and Output 07/01/19 07/02/19 19:00 07:00 Intake Total 760 ml 361.0 ml Output Total 1300 ml 550 ml Balance -540 ml -189.0 ml Intake Oral 760 ml IV Total 361.0 ml Output Urine Total 1300 ml 550 ml Labs Test 06/29/19 06:25 07/01/19 04:45 White Blood Count 13.4 K/UL (4.8-10.8) 11.2 K/UL (4.8-10.8) Red Blood Count 3.50 M/UL (4.70-6.10) 3.48 M/UL (4.70-6.10) Hemoglobin 10.0 G/DL (14.2-18.0) 10.0 G/DL (14.2-18.0) Hematocrit 30.2 % (42.0-52.0) 29.9 % (42.0-52.0) Mean Corpuscular Volume 86 FL (80-99) 86 FL (80-99) Mean Corpuscular Hemoglobin 28.6 PG (27.0-31.0) 28.7 PG (27.0-31.0) Mean Corpuscular Hemoglobin Concent 33.1 G/DL (32.0-36.0) 33.5 G/DL (32.0-36.0) Red Cell Distribution Width 12.9 % (11.6-14.8) 13.0 % (11.6-14.8) Platelet Count 208 K/UL (150-450) 170 K/UL (150-450) Mean Platelet Volume 9.3 FL (6.5-10.1) 8.0 FL (6.5-10.1) Neutrophils (%) (Auto) 84.9 % (45.0-75.0) 82.6 % (45.0-75.0) Lymphocytes (%) (Auto) 5.9 % (20.0-45.0) 7.5 % (20.0-45.0) Monocytes (%) (Auto) 7.3 % (1.0-10.0) 7.3 % (1.0-10.0) Eosinophils (%) (Auto) 0.9 % (0.0-3.0) 1.1 % (0.0-3.0) Basophils (%) (Auto) 0.9 % (0.0-2.0) 1.5 % (0.0-2.0) Sodium Level 139 MMOL/L (136-145) 141 MMOL/L (136-145) Potassium Level 4.2 MMOL/L (3.5-5.1) 3.7 MMOL/L (3.5-5.1) Chloride Level 107 MMOL/L (98-107) 109 MMOL/L (98-107) Carbon Dioxide Level 25 MMOL/L (21-32) 21 MMOL/L (21-32) Anion Gap 8 mmol/L (5-15) 11 mmol/L (5-15) Blood Urea Nitrogen 33 mg/dL (7-18) 21 mg/dL (7-18) Creatinine 2.0 MG/DL (0.55-1.30) 1.5 MG/DL (0.55-1.30) Estimat Glomerular Filtration Rate 32.9 mL/min (>60) 45.9 mL/min (>60) Glucose Level 162 MG/DL (74-106) 145 MG/DL (74-106) Calcium Level 7.7 MG/DL (8.5-10.1) 7.8 MG/DL (8.5-10.1) Total Bilirubin 0.4 MG/DL (0.2-1.0) Aspartate Amino Transf (AST/SGOT) 12 U/L (15-37) Alanine Aminotransferase (ALT/SGPT) 14 U/L (12-78) Alkaline Phosphatase 48 U/L (46-116) Total Protein 4.8 G/DL (6.4-8.2) Albumin 1.4 G/DL (3.4-5.0) Globulin 3.4 g/dL Albumin/Globulin Ratio 0.4 (1.0-2.7) Amylase Level 124 U/L (25-115) Lipase 519 U/L (73-393) Height (Feet): 5 Height (Inches): 7.00 Weight (Pounds): 245 Objective PE General Appearance: no apparent distress, alert HEENT: atraumatic, anicteric Neck: normal alignment, supple Respiratory/Chest: lungs clear, normal breath sounds, no respiratory distress. NC+ Cardiovascular/Chest: normal rate, regular rhythm Abdomen: non tender, soft, no organomegaly Extremities: non-tender, normal inspection Skin Exam: warm/dry, cyanotic Neurologic: alert Gu: ++ Kana Goyal MD Jul 02, 2019 06:16
--- NOTE | 2019-07-02 07:24 | NUR ---
NURSE NOTES: Received report from Farzana/RN, Patient is asleep, Lying semi-badillo's, resting comfortably. On 3L nasal canula, No acute distress/SOB noted. Breathing unlabored and even. Able to make needs known. Rivero draining well to gravity. IV on Left hand G-20, no bleeding or infiltration noted. Bed in low position and locked, bed alarm engaged, Side rails up x2. call light within reach. Encouraged to use call light when needed. Will continue plan of care.
[2019-07-02 07:27] LABS: BASOPHILS % (AUTO) 1.8 % (0.0-2.0); EOSINOPHILS % (AUTO) 1.5 % (0.0-3.0); HEMATOCRIT 29.7 % (42.0-52.0); HEMOGLOBIN 9.8 G/DL (14.2-18.0); LYMPHOCYTES % (AUTO) 8.9 % (20.0-45.0); MEAN CORPUSCULAR VOLUME 86 FL (80-99); MONOCYTES % (AUTO) 7.8 % (1.0-10.0); NEUTROPHILS % (AUTO) 79.9 % (45.0-75.0); PLATELET COUNT 163 K/UL (150-450); RED BLOOD COUNT 3.46 M/UL (4.70-6.10); RED CELL DISTRIBUTION WIDTH 12.9 % (11.6-14.8); WHITE BLOOD COUNT 9.6 K/UL (4.8-10.8)
--- NOTE | 2019-07-02 07:27 | NUR ---
HAND-OFF: Report given to GANGA Francis. Patient in bed asleep. There are no signs of distress noted at the time. Endorsed plan of care.
[2019-07-02 07:43] LABS: AMYLASE 120 U/L (25-115)
[2019-07-02 07:44] LABS: ANION GAP 9 mmol/L (5-15); BLOOD UREA NITROGEN 20 mg/dL (7-18); CARBON DIOXIDE 24 MMOL/L (21-32); CHLORIDE 109 MMOL/L (98-107); CREATININE 1.3 MG/DL (0.55-1.30); POTASSIUM 3.5 MMOL/L (3.5-5.1); SODIUM 142 MMOL/L (136-145)
[2019-07-02 08:00] VITALS: BP 165/76
--- NOTE | 2019-07-02 08:59 | Cardiology Progress Note ---
Assessment/Plan Status: stable Assessment/Plan Assessment/Plan 73 year old man with HTN, IDDM, ? history of CVA who [place] [facility] [place] [facility] [place],vomiting and hypertensive urgency and SOB -Empiric ABX and IV fluids -> WBC now normal, no fevers, cultures negative -BiPAP prn, continue pulmonary rehab/toilet/CPT, serial chest x ray -V/Q and LE US negative for thrombus, CXR with cardiomegaly and interstitial prominence -Echocardiogram with LVEF 40% and PA pressure 55 mmHG and elevated right atrial pressures. -Continue diuresis to lower filling pressures, recommend repeating limited Echocardiogram once dry weight achieved to re-evaluate pulmonary/filling pressures - ok to do as outpatient -Continue low dose metoprolol 25 mg BID for systolic dysfunction and titrate -Aldactone started -If BP tolerates will start losartan 25 mg tomorrow -Stress test negative -ok to d/c from cardiac standpoint Subjective Cardiovascular: Reports: no symptoms Respiratory: Reports: no symptoms Gastrointestinal/Abdominal: Reports: no symptoms Subjective Patient stable on floors, no acute events, vitals stable, Stress test negative for ischemia, creatinine 1.3 - aldactone started today Objective Last 24 Hour Vital Signs Date Time Temp Pulse Resp B/P (MAP) Pulse Ox O2 Delivery O2 Flow Rate FiO2 07/02/19 08:00 97.5 81 21 165/76 (105) 97 07/02/19 07:43 81 18 93 Room Air 21 07/02/19 07:43 93 Room Air 21 07/02/19 04:00 77 07/02/19 04:00 96.6 78 20 160/74 (102) 96 07/02/19 00:00 75 07/02/19 00:00 97.9 71 20 157/69 (98) 97 07/01/19 21:46 76 144/60 07/01/19 21:00 Nasal Cannula 1.0 07/01/19 20:00 98.1 76 20 144/60 (88) 95 07/01/19 20:00 78 07/01/19 19:04 93 Room Air 21 07/01/19 19:04 84 18 93 Room Air 21 07/01/19 16:00 97.5 75 20 156/61 (92) 96 07/01/19 16:00 78 07/01/19 12:00 71 07/01/19 12:00 97.7 73 20 155/71 (99) 93 07/01/19 09:24 91 158/80 07/01/19 09:23 91 158/80 07/01/19 09:00 Nasal Cannula 1.0 General Appearance: no apparent distress, alert EENT: PERRL/EOMI, normal ENT inspection, TMs normal, pharynx normal Neck: non-tender, normal alignment, supple, normal inspection, no JVD Rhythm: NSR Cardiovascular: normal peripheral pulses, normal rate, regular rhythm Respiratory/Chest: chest wall non-tender, lungs clear, normal breath sounds, no respiratory distress Abdomen: normal bowel sounds, non tender, soft, no organomegaly, no mass Extremities: normal range of motion, non-tender, normal inspection, no calf tenderness, no swelling 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, no motor/sensory deficits Intake and Output 07/01/19 07/02/19 19:00 07:00 Intake Total 760 ml 1014.8 ml Output Total 1300 ml 2150 ml Balance -540 ml -1135.2 ml Intake Oral 760 ml 120 ml IV Total 444.8 ml Other 450 ml Output Urine Total 1300 ml 2150 ml Laboratory Tests Test 07/02/19 05:39 White Blood Count 9.6 K/UL (4.8-10.8) Red Blood Count 3.46 M/UL (4.70-6.10) L Hemoglobin 9.8 G/DL (14.2-18.0) L Hematocrit 29.7 % (42.0-52.0) L Mean Corpuscular Volume 86 FL (80-99) Mean Corpuscular Hemoglobin 28.2 PG (27.0-31.0) Mean Corpuscular Hemoglobin Concent 32.9 G/DL (32.0-36.0) Red Cell Distribution Width 12.9 % (11.6-14.8) Platelet Count 163 K/UL (150-450) Mean Platelet Volume 8.1 FL (6.5-10.1) Neutrophils (%) (Auto) 79.9 % (45.0-75.0) H Lymphocytes (%) (Auto) 8.9 % (20.0-45.0) L Monocytes (%) (Auto) 7.8 % (1.0-10.0) Eosinophils (%) (Auto) 1.5 % (0.0-3.0) Basophils (%) (Auto) 1.8 % (0.0-2.0) Sodium Level 142 MMOL/L (136-145) Potassium Level 3.5 MMOL/L (3.5-5.1) Chloride Level 109 MMOL/L (98-107) H Carbon Dioxide Level 24 MMOL/L (21-32) Anion Gap 9 mmol/L (5-15) Blood Urea Nitrogen 20 mg/dL (7-18) H Creatinine 1.3 MG/DL (0.55-1.30) Estimat Glomerular Filtration Rate 54.1 mL/min (>60) Glucose Level 138 MG/DL (74-106) H Calcium Level 8.0 MG/DL (8.5-10.1) L Amylase Level 120 U/L (25-115) H Lipase 305 U/L (73-393) Microbiology Date/Time Source Procedure Growth Status 06/30/19 18:00 Stool Clostridium difficile Toxin Assay - Final Complete FilsoPaul wong MD Jul 02, 2019 08:59
[2019-07-02] MEDS ORDERED: Spironolactone 25mg tab ORAL SCH (09:00)
[2019-07-02] MEDS: Pancrelipase Dr Cap ORAL SCH ×3 (09:08→17:14)
[2019-07-02] MEDS: Aspirin Baby 81mg ORAL SCH (09:08)
--- NOTE | 2019-07-02 09:12 | NUR ---
CASE MANAGEMENT:REVIEW 07/02/19 SI: SEPSIS. RESPIRATORY FAILURE NSTEMI. ACUTE METABOLIC ENCEPHALOPATHY 97.5 81 21 165/76 97% ON RA H/H-9.8/29.7 BUN+20 CA-8.0 IS: IV LINEZOLID Q12 IV ZOSYN Q8HRS IVF@75/HR NAHC03 PO TID NORVASC PO QD ASA PO QD IV PROTONIX QD LOPRESSOR PO Q12 : TELEMETRY DCP: PATIENT IS FROM HOME Addendum: 07/02/19 at 1251 by IVET BLOOM LVN LVN PLAN: CONTINUE IV ZYVOX AND ZOSYN X3 MORE DAYS EUS TOMORROW OR SUNDAY FOR EVALUATION OF ESOPHAGITIS AND PANCREATIC PSEUDOCYST DOWNGRADE TO MED/SURG
--- NOTE | 2019-07-02 09:33 | Pulmonology Progress Note ---
Assessment/Plan Problems: (1) Sepsis (2) Hypoxia (3) Left upper quadrant abdominal mass (4) Thrombocytopenia Assessment & Plan: Recovered Hit Ab panel neg (5) Acute kidney injury superimposed on CKD Assessment/Plan Optimize pulmonary hygiene/mobilize as tolerated Needs to get OOB Needs an outpatient PSG and PFT PRN O2 PRN HHN's Monitor volumes and renal function ABx per ID, F/U Cx's F/U cards recs ---> plan for repeat TTE when euvolemic F/U GI recs ---> ? can EUS be done now that stress test negative ASPIRATION precautions DVT Px: SCD's FC Subjective Allergies: Coded Allergies: No Known Allergies (Unverified , 06/02/19) Subjective AFVSS O2 needs stable NAEO Weak cough no SOB no FC no CP Objective Last 24 Hour Vital Signs Date Time Temp Pulse Resp B/P (MAP) Pulse Ox O2 Delivery O2 Flow Rate FiO2 07/02/19 09:08 81 165/76 07/02/19 09:07 81 165/76 07/02/19 08:00 97.5 81 21 165/76 (105) 97 07/02/19 07:43 81 18 93 Room Air 21 07/02/19 07:43 93 Room Air 21 07/02/19 04:00 77 07/02/19 04:00 96.6 78 20 160/74 (102) 96 07/02/19 00:00 75 07/02/19 00:00 97.9 71 20 157/69 (98) 97 07/01/19 21:46 76 144/60 07/01/19 21:00 Nasal Cannula 1.0 07/01/19 20:00 98.1 76 20 144/60 (88) 95 07/01/19 20:00 78 07/01/19 19:04 93 Room Air 21 07/01/19 19:04 84 18 93 Room Air 21 07/01/19 16:00 97.5 75 20 156/61 (92) 96 07/01/19 16:00 78 07/01/19 12:00 71 07/01/19 12:00 97.7 73 20 155/71 (99) 93 Intake and Output 07/01/19 07/02/19 19:00 07:00 Intake Total 760 ml 1014.8 ml Output Total 1300 ml 2150 ml Balance -540 ml -1135.2 ml Intake Oral 760 ml 120 ml IV Total 444.8 ml Other 450 ml Output Urine Total 1300 ml 2150 ml Objective Ob M General Appearance: no acute distress, other HEENT: normocephalic, atraumatic, anicteric, mucous membranes moist Respiratory/Chest: chest wall non-tender, lungs clear, normal breath sounds, no respiratory distress, no accessory muscle use Cardiovascular: normal peripheral pulses, normal rate, regular rhythm Abdomen: normal bowel sounds, soft, non tender, no organomegaly, non distended , no mass Extremities: no cyanosis, no clubbing, no edema Microbiology Date/Time Source Procedure Growth Status 06/30/19 18:00 Stool Clostridium difficile Toxin Assay - Final Complete Laboratory Tests 07/02/19 05:39: White Blood Count 9.6, Red Blood Count 3.46L, Hemoglobin 9.8L, Hematocrit 29.7L , Mean Corpuscular Volume 86, Mean Corpuscular Hemoglobin 28.2, Mean Corpuscular Hemoglobin Concent 32.9, Red Cell Distribution Width 12.9, Platelet Count 163, Mean Platelet Volume 8.1, Neutrophils (%) (Auto) 79.9H, Lymphocytes ( %) (Auto) 8.9L, Monocytes (%) (Auto) 7.8, Eosinophils (%) (Auto) 1.5, Basophils (%) (Auto) 1.8, Sodium Level 142, Potassium Level 3.5, Chloride Level 109H, Carbon Dioxide Level 24, Anion Gap 9, Blood Urea Nitrogen 20H, Creatinine 1.3, Estimat Glomerular Filtration Rate 54.1, Glucose Level 138H, Calcium Level 8.0L , Amylase Level 120H, Lipase 305 Current Medications Medications (Trade) Dose Ordered Sig/Arley Route PRN Reason Start Time Stop Time Status Last Admin Dose Admin Acetaminophen (Tylenol) 650 mg Q4H PRN ORAL Mild Pain (Pain Scale 1-3) 06/24/19 19:00 07/15/19 18:59 06/29/19 03:41 Albumin Human 50 ml @ 50 mls/hr DAILYPRN PRN IV For hypotension 06/25/19 09:00 07/25/19 08:59 Albuterol/ Ipratropium (Albuterol/ Ipratropium) 3 ml Q4H PRN HHN Shortness of Breath 06/29/19 16:43 07/04/19 16:42 Amlodipine Besylate (Norvasc) 10 mg DAILY ORAL 07/02/19 09:00 07/24/19 08:59 07/02/19 09:07 Amylase/Lipase/ Protease (Zenpep) 3 ea THREE TIMES A DAY ORAL 06/26/19 14:00 07/26/19 13:59 07/02/19 09:08 Aspirin (ASA) 81 mg DAILY ORAL 06/25/19 09:00 07/20/19 08:59 07/02/19 09:08 Bisacodyl (Dulcolax) 10 mg DAILYPRN PRN RECTAL Constipation 06/24/19 19:00 07/24/19 18:59 Dextrose (Dextrose 50%) 25 ml Q30M PRN IV Hypoglycemia 06/24/19 18:45 07/16/19 18:05 Dextrose (Dextrose 50%) 50 ml Q30M PRN IV Hypoglycemia 06/24/19 18:45 07/16/19 18:05 Insulin Aspart (NovoLOG) AC+HS SUBQ 06/24/19 21:00 07/20/19 17:59 07/01/19 21:49 Linezolid 300 ml @ 300 mls/hr EVERY 12 HOURS IVPB 06/26/19 21:00 07/03/19 20:59 07/02/19 09:09 Loperamide HCl (Imodium) 2 mg Q4H PRN ORAL Diarrhea 06/30/19 21:30 07/30/19 21:29 07/01/19 01:29 Magnesium Hydroxide (Mom) 30 ml HSPRN PRN ORAL Constipation 06/24/19 21:00 07/15/19 20:59 Metoprolol Tartrate (Lopressor) 25 mg Q12HR ORAL 06/24/19 21:00 07/20/19 08:59 07/02/19 09:08 Ondansetron HCl (Zofran) 4 mg Q6H PRN IVP Nausea & Vomiting 06/24/19 19:00 07/24/19 18:59 Pantoprazole (Protonix) 40 mg DAILY ORAL 06/28/19 09:00 07/28/19 08:59 07/02/19 09:08 Piperacillin Sod/ Tazobactam Sod 3.375 gm/Sodium Chloride 110 ml @ 27.5 mls/hr EVERY 8 HOURS IVPB 06/28/19 14:00 07/03/19 23:59 07/02/19 05:44 Spironolactone (Aldactone) 12.5 mg DAILY ORAL 07/02/19 09:00 08/01/19 08:59 07/02/19 09:14 Homero Moran MD Jul 02, 2019 09:33
--- NOTE | 2019-07-02 10:25 | GI Progress Note ---
Assessment/Plan Problems: (1) Thrombocytopenia ICD Codes: D69.6 - Thrombocytopenia, unspecified SNOMED: 516953177 (2) Acute pancreatitis ICD Codes: K85.90 - Acute pancreatitis without necrosis or infection, unspecified SNOMED: 103142027 Qualifiers: Qualified Codes: K85.90 - Acute pancreatitis without necrosis or infection, unspecified (3) Left upper quadrant abdominal mass ICD Codes: R19.02 - Left upper quadrant abdominal swelling, mass and lump SNOMED: 040463215 Status: unchanged Status Narrative Discussed with Dr. Akbar. Assessment/Plan anemia esophagitis CM pancreatic pseudocyst CAD obesity sepsis stool studies neg cdiff neg plan for EUS sunday imodium prn on low fat diet repeat CT reviewed abx per id fu cardiology ad nephrology repeat labs in am ppi pancreolipase The patient was seen and examined at bedside and all new and available data was reviewed in the patients chart. I agree with the above findings, impression and plan. (Patient seen earlier today. Signature stamp does not reflect patient encounter time.). - Peyman Akbar MD Subjective Subjective loose stools Objective Last 24 Hour Vital Signs Date Time Temp Pulse Resp B/P (MAP) Pulse Ox O2 Delivery O2 Flow Rate FiO2 07/02/19 09:08 81 165/76 07/02/19 09:07 81 165/76 07/02/19 09:00 Nasal Cannula 1.0 07/02/19 08:00 84 07/02/19 08:00 97.5 81 21 165/76 (105) 97 07/02/19 07:43 81 18 93 Room Air 21 07/02/19 07:43 93 Room Air 21 07/02/19 04:00 77 07/02/19 04:00 96.6 78 20 160/74 (102) 96 07/02/19 00:00 75 07/02/19 00:00 97.9 71 20 157/69 (98) 97 07/01/19 21:46 76 144/60 07/01/19 21:00 Nasal Cannula 1.0 07/01/19 20:00 98.1 76 20 144/60 (88) 95 07/01/19 20:00 78 07/01/19 19:04 93 Room Air 21 07/01/19 19:04 84 18 93 Room Air 21 3/10/20 16:00 97.5 75 20 156/61 (92) 96 07/01/19 16:00 78 07/01/19 12:00 71 07/01/19 12:00 97.7 73 20 155/71 (99) 93 Intake and Output 07/01/19 07/02/19 19:00 07:00 Intake Total 760 ml 1014.8 ml Output Total 1300 ml 2150 ml Balance -540 ml -1135.2 ml Intake Oral 760 ml 120 ml IV Total 444.8 ml Other 450 ml Output Urine Total 1300 ml 2150 ml Laboratory Tests Test 07/02/19 05:39 White Blood Count 9.6 K/UL (4.8-10.8) Red Blood Count 3.46 M/UL (4.70-6.10) L Hemoglobin 9.8 G/DL (14.2-18.0) L Hematocrit 29.7 % (42.0-52.0) L Mean Corpuscular Volume 86 FL (80-99) Mean Corpuscular Hemoglobin 28.2 PG (27.0-31.0) Mean Corpuscular Hemoglobin Concent 32.9 G/DL (32.0-36.0) Red Cell Distribution Width 12.9 % (11.6-14.8) Platelet Count 163 K/UL (150-450) Mean Platelet Volume 8.1 FL (6.5-10.1) Neutrophils (%) (Auto) 79.9 % (45.0-75.0) H Lymphocytes (%) (Auto) 8.9 % (20.0-45.0) L Monocytes (%) (Auto) 7.8 % (1.0-10.0) Eosinophils (%) (Auto) 1.5 % (0.0-3.0) Basophils (%) (Auto) 1.8 % (0.0-2.0) Sodium Level 142 MMOL/L (136-145) Potassium Level 3.5 MMOL/L (3.5-5.1) Chloride Level 109 MMOL/L (98-107) H Carbon Dioxide Level 24 MMOL/L (21-32) Anion Gap 9 mmol/L (5-15) Blood Urea Nitrogen 20 mg/dL (7-18) H Creatinine 1.3 MG/DL (0.55-1.30) Estimat Glomerular Filtration Rate 54.1 mL/min (>60) Glucose Level 138 MG/DL (74-106) H Calcium Level 8.0 MG/DL (8.5-10.1) L Amylase Level 120 U/L (25-115) H Lipase 305 U/L (73-393) Height (Feet): 5 Height (Inches): 7.00 Weight (Pounds): 250 General Appearance: WD/WN, no apparent distress, alert Cardiovascular: normal rate Respiratory/Chest: normal breath sounds, no respiratory distress Abdominal Exam: normal bowel sounds, non tender, soft Extremities: normal range of motion, non-tender Denise Enamorado NP Jul 02, 2019 10:25
--- NOTE | 2019-07-02 10:51 | General Progress Note ---
Assessment/Plan Status: unchanged Assessment/Plan: 73 y/o M with PMH HTN, IDDM, ? history of CVA who presented to [facility] [place] [facility] with nausea,vomiting. On admission pt w/acute respiratory failure, initially admitted to ICU, was placed on BiPAP, pt improved and now on NC. Pt was found to have Klebsiella bacteremia, ID consulted and pt was started on zosyn and zyvox. WBC's elevated on 06/25 for which repeat BCx were drawn which are negative at this time. Pt w/elevated lipase, found to have acute pancreatitis, CT abd revealed pancreatic pseudocyst for which GI was consulted, pt will need EUS once more stable. Pt also w/NSTEMI, acute on chronic heart failure, cardio consulted and plan for stress test once more stable. #Klebsiella bacteremia #Leukocytosis - downtrending #? infected pancreatic pseudocyst, ? aspiration pna/HCAP vs atx, arf -BCx on admission pt was found to be in septic shock, now resolved, BCx + for klebsiella bacteremia -BCx / NGTD -BCx / NGTD -UCx / NGTD -on 06/25 pt w/leukocytosis, repeat BCx / NGTD -CT A/P on 06/25: with mild improvement of pseudocyst. no abscess or acute pathology identified. -indium scan ordered per ID -cont zosyn, zyvox for 3 more days #Chronic systolic CHF, HFrEF 40% TTE with EF ~40% Continue MTP 25 BID Cardiology following started on Aldactone Stress test without reversible ischemia #acute hypoxic resp failure without hypercarbia - stable off BiPAP continue inhaled bronchodilators Pulm/CCM following bipap prn and QHS - patient noncompliant #NSTEMI, peak trop of 2, likely due to demand ischemia was initially placed on heparin on admission, now off heparin Cardiology following #acute kidney injury on CKD, possible ATN - downtrending s/p IV hydration cont. to monitor BMP avoid nephrotoxic meds scr with improvement Nephrology following #acute pancreatitis #Pancreatic Pseudocyst low fat diet PPI Pancreaolipase EUS on Monday 07/03 #Thrombocytopenia - resolved #Rule out HIT etiology likely multifactorial, likely due to sepsis cont to monitor daily CBC Hematology following - ok for DVT ppx w/heparin or lovenox when plts >50k #Hypokalemia, hypomagnesemia - resolved replaced, cont. to monitor, replace PRN #lactic acidosis #HTN cont Norvasc #DM type 2 ISS #Septic shock - resolved on admission pt was in ICU, now improved off pressors cont. to monitor VTE PPx - SCDs Full Code Time spent on encounter: 35 mins, >50% on counseling, coordination of care. Time of note doesn't reflect time of encounter. Subjective Date patient seen: Jul 02, 2019 Time patient seen: 08:23 ROS Limited/Unobtainable: No Constitutional: Denies: chills, fever Cardiovascular: Denies: chest pain Respiratory: Denies: cough, orthopnea, shortness of breath Gastrointestinal/Abdominal: Denies: abdomen distended, abdominal pain Neurologic/Psychiatric: Denies: anxiety, depressed Endocrine: Denies: excessive sweating Allergies: Coded Allergies: No Known Allergies (Unverified , 06/02/19) Subjective Follow up for septic shock, acute hypoxic resp failure, ZARINA, acute metabolic encephalopathy No current complaints, denies abdominal pain, nausea, vomiting Stress test negative for reversible ischemia Indium scan pending Plan for EUS Sunday Objective Last 24 Hour Vital Signs Date Time Temp Pulse Resp B/P (MAP) Pulse Ox O2 Delivery O2 Flow Rate FiO2 07/02/19 09:08 81 165/76 07/02/19 09:07 81 165/76 07/02/19 09:00 Nasal Cannula 1.0 07/02/19 08:00 84 07/02/19 08:00 97.5 81 21 165/76 (105) 97 07/02/19 07:43 81 18 93 Room Air 21 07/02/19 07:43 93 Room Air 21 07/02/19 04:00 77 07/02/19 04:00 96.6 78 20 160/74 (102) 96 07/02/19 00:00 75 07/02/19 00:00 97.9 71 20 157/69 (98) 97 07/01/19 21:46 76 144/60 07/01/19 21:00 Nasal Cannula 1.0 07/01/19 20:00 98.1 76 20 144/60 (88) 95 07/01/19 20:00 78 07/01/19 19:04 93 Room Air 21 3/10/20 19:04 84 18 93 Room Air 21 07/01/19 16:00 97.5 75 20 156/61 (92) 96 07/01/19 16:00 78 07/01/19 12:00 71 07/01/19 12:00 97.7 73 20 155/71 (99) 93 Intake and Output 07/01/19 07/02/19 19:00 07:00 Intake Total 760 ml 1014.8 ml Output Total 1300 ml 2150 ml Balance -540 ml -1135.2 ml Intake Oral 760 ml 120 ml IV Total 444.8 ml Other 450 ml Output Urine Total 1300 ml 2150 ml Laboratory Tests 07/02/19 05:39: White Blood Count 9.6, Red Blood Count 3.46L, Hemoglobin 9.8L, Hematocrit 29.7L , Mean Corpuscular Volume 86, Mean Corpuscular Hemoglobin 28.2, Mean Corpuscular Hemoglobin Concent 32.9, Red Cell Distribution Width 12.9, Platelet Count 163, Mean Platelet Volume 8.1, Neutrophils (%) (Auto) 79.9H, Lymphocytes ( %) (Auto) 8.9L, Monocytes (%) (Auto) 7.8, Eosinophils (%) (Auto) 1.5, Basophils (%) (Auto) 1.8, Sodium Level 142, Potassium Level 3.5, Chloride Level 109H, Carbon Dioxide Level 24, Anion Gap 9, Blood Urea Nitrogen 20H, Creatinine 1.3, Estimat Glomerular Filtration Rate 54.1, Glucose Level 138H, Calcium Level 8.0L , Amylase Level 120H, Lipase 305 Height (Feet): 5 Height (Inches): 7.00 Weight (Pounds): 250 General Appearance: no apparent distress Neck: normal alignment Cardiovascular: normal rate, regular rhythm Respiratory/Chest: lungs clear, normal breath sounds Abdomen: non tender, soft Neurologic: marketing and public relations manager II-XII grossly normal, no motor/sensory deficits, alert, oriented x 3 Harinder Ochoa MD Jul 02, 2019 10:51
[2019-07-02 12:00] VITALS: BP 150/63
--- NOTE | 2019-07-02 13:02 | Nephrology Progress Note ---
Assessment/Plan Plan #acute kidney injury - on baseline CKD- Fena 0.4% suggestive of pre-renal aztemia- however UA with sediments and RBC concerning for developing ATN- patient with baseline diabetic nephropathy -Cr uptrended today #sepsis #acute pancreatitis- improved # Hypokalemia, hypopmagnesemia - repleted #lactic acidosis- improved #HTN- stable #DM- controlled #NSTEMI #hypernatremia - improved #eliana on CKD - baseline Cr in mid to high 1s- now worsening in the setting of sepsis and possibly vanco induced #metabolic acidosis - due to renal insufficiency - monitor Cr - Cr 1.3 today - dc sodium bicarb 650mg TID - aldactone 12.5mg daily - lisinopril 10mg daily #sepsis - antibiotics per ID- zosyn and zyvox, avoid nephrotoxic antibiotics - avoid supratherapeutic vanco level - monitor WBC #troponemia - heparin on hold for thrombocytopenia - HIT? - cardiology eval - stress test neg - aldactone 12.5mg daily - lisinopril 10mg daily #HTN - aldactone 12.5mg daily - lisinopril 10mg daily -increase amldipine to 10mg daily - metop 25mg BID #DM - hold metformin - ISS Subjective Subjective Stress test neg Breathing stable today - on NC Cr 1.3 will add lisiinopril aladactone added on zosyn and zyvox BP stable Objective Objective Last 24 Hour Vital Signs Date Time Temp Pulse Resp B/P (MAP) Pulse Ox O2 Delivery O2 Flow Rate FiO2 07/02/19 12:00 83 07/02/19 12:00 97.9 82 21 150/63 (92) 97 07/02/19 09:08 81 165/76 07/02/19 09:07 81 165/76 07/02/19 09:00 Nasal Cannula 1.0 07/02/19 08:00 84 07/02/19 08:00 97.5 81 21 165/76 (105) 97 07/02/19 07:43 81 18 93 Room Air 21 07/02/19 07:43 93 Room Air 21 07/02/19 04:00 77 07/02/19 04:00 96.6 78 20 160/74 (102) 96 07/02/19 00:00 75 07/02/19 00:00 97.9 71 20 157/69 (98) 97 07/01/19 21:46 76 144/60 07/01/19 21:00 Nasal Cannula 1.0 07/01/19 20:00 98.1 76 20 144/60 (88) 95 07/01/19 20:00 78 07/01/19 19:04 93 Room Air 21 07/01/19 19:04 84 18 93 Room Air 21 07/01/19 16:00 97.5 75 20 156/61 (92) 96 07/01/19 16:00 78 Intake and Output 07/01/19 07/02/19 19:00 07:00 Intake Total 760 ml 1014.8 ml Output Total 1300 ml 2150 ml Balance -540 ml -1135.2 ml Intake Oral 760 ml 120 ml IV Total 444.8 ml Other 450 ml Output Urine Total 1300 ml 2150 ml Laboratory Tests 07/02/19 05:39: White Blood Count 9.6, Red Blood Count 3.46L, Hemoglobin 9.8L, Hematocrit 29.7L , Mean Corpuscular Volume 86, Mean Corpuscular Hemoglobin 28.2, Mean Corpuscular Hemoglobin Concent 32.9, Red Cell Distribution Width 12.9, Platelet Count 163, Mean Platelet Volume 8.1, Neutrophils (%) (Auto) 79.9H, Lymphocytes ( %) (Auto) 8.9L, Monocytes (%) (Auto) 7.8, Eosinophils (%) (Auto) 1.5, Basophils (%) (Auto) 1.8, Sodium Level 142, Potassium Level 3.5, Chloride Level 109H, Carbon Dioxide Level 24, Anion Gap 9, Blood Urea Nitrogen 20H, Creatinine 1.3, Estimat Glomerular Filtration Rate 54.1, Glucose Level 138H, Calcium Level 8.0L , Amylase Level 120H, Lipase 305 Height (Feet): 5 Height (Inches): 7.00 Weight (Pounds): 250 Objective General Appearance: Alert - no distress Lines, tubes and drains: peripheral HEENT: normocephalic, atraumatic Neck: non-tender, normal alignment Respiratory/Chest: chest wall non-tender, lungs clear, normal breath sounds Cardiovascular/Chest: normal rate, regular rhythm Abdomen: normal bowel sounds, non tender, soft Extremities: non-tender, normal inspection Skin Exam: normal pigmentation, no diaphoresis Gerson Salgado M.D. Jul 02, 2019 13:02
--- NOTE | 2019-07-02 13:04 | NUR ---
RD ASSESSMENT & RECOMMENDATIONS SEE CARE ACTIVITY FOR COMPLETE ASSESSMENT DAILY ESTIMATED NEEDS: Needs based on Obese, pulmonary, WOUND/ 78kg abw 20-25 kcals/kg 5118-0583 total kcals 1.25-1.5 g protein/kg 97-117 g total protein 20-30ml/kcal mL/kg 4973-0306 total fluid mLs NUTRITION DIAGNOSIS: * Decreased fat needs r/t acute pancreatitis as evidenced by elevated lipase 533 -> 1000 -> 305 now wnl, pt is obese class II. * Increased protein and micronutrients needs R/T wound healing as evidenced by pt w/ partial thickness @ BL buttocks and non-blanching erythema @ BL heels. CURRENT DIET:CARDIAC, soft easy chew PO DIET RECOMMENDATIONS: LOW FAT, CCHO MED / texture per CREDIT COLLECTIONS MANAGER ADDITIONAL RECOMMENDATIONS: 1) Rec A1C for eval (h/o DM) 2) Calibrated bed scale wts 3) Monitor PO tolerance -> now Lipase wnl, amylase trend down 4) Wound healing: add MVI x 1, Vit C 250mg QD Angus 1pkt BID added to tray 5) Glucerna x 1 w/ variable and poor PO
--- NOTE | 2019-07-02 15:32 | Surgery Progress Note ---
Surgery Progress Note Subjective Additional Comments no acute events labs improved resting comfortable Objective Last 24 Hour Vital Signs Date Time Temp Pulse Resp B/P (MAP) Pulse Ox O2 Delivery O2 Flow Rate FiO2 07/02/19 12:00 83 07/02/19 12:00 97.9 82 21 150/63 (92) 97 07/02/19 09:08 81 165/76 07/02/19 09:07 81 165/76 07/02/19 09:00 Nasal Cannula 1.0 07/02/19 08:00 84 07/02/19 08:00 97.5 81 21 165/76 (105) 97 07/02/19 07:43 81 18 93 Room Air 21 07/02/19 07:43 93 Room Air 21 07/02/19 04:00 77 07/02/19 04:00 96.6 78 20 160/74 (102) 96 07/02/19 00:00 75 07/02/19 00:00 97.9 71 20 157/69 (98) 97 07/01/19 21:46 76 144/60 07/01/19 21:00 Nasal Cannula 1.0 07/01/19 20:00 98.1 76 20 144/60 (88) 95 07/01/19 20:00 78 07/01/19 19:04 93 Room Air 21 07/01/19 19:04 84 18 93 Room Air 21 07/01/19 16:00 97.5 75 20 156/61 (92) 96 07/01/19 16:00 78 I&O Intake and Output 07/01/19 07/02/19 19:00 07:00 Intake Total 760 ml 1014.8 ml Output Total 1300 ml 2150 ml Balance -540 ml -1135.2 ml Intake Oral 760 ml 120 ml IV Total 444.8 ml Other 450 ml Output Urine Total 1300 ml 2150 ml Cardiovascular: RSR Respiratory: clear Abdomen: soft, non-tender, present bowel sounds Extremities: no cyanosis, other Laboratory Tests Test 07/02/19 05:39 White Blood Count 9.6 K/UL (4.8-10.8) Red Blood Count 3.46 M/UL (4.70-6.10) L Hemoglobin 9.8 G/DL (14.2-18.0) L Hematocrit 29.7 % (42.0-52.0) L Mean Corpuscular Volume 86 FL (80-99) Mean Corpuscular Hemoglobin 28.2 PG (27.0-31.0) Mean Corpuscular Hemoglobin Concent 32.9 G/DL (32.0-36.0) Red Cell Distribution Width 12.9 % (11.6-14.8) Platelet Count 163 K/UL (150-450) Mean Platelet Volume 8.1 FL (6.5-10.1) Neutrophils (%) (Auto) 79.9 % (45.0-75.0) H Lymphocytes (%) (Auto) 8.9 % (20.0-45.0) L Monocytes (%) (Auto) 7.8 % (1.0-10.0) Eosinophils (%) (Auto) 1.5 % (0.0-3.0) Basophils (%) (Auto) 1.8 % (0.0-2.0) Sodium Level 142 MMOL/L (136-145) Potassium Level 3.5 MMOL/L (3.5-5.1) Chloride Level 109 MMOL/L (98-107) H Carbon Dioxide Level 24 MMOL/L (21-32) Anion Gap 9 mmol/L (5-15) Blood Urea Nitrogen 20 mg/dL (7-18) H Creatinine 1.3 MG/DL (0.55-1.30) Estimat Glomerular Filtration Rate 54.1 mL/min (>60) Glucose Level 138 MG/DL (74-106) H Calcium Level 8.0 MG/DL (8.5-10.1) L Amylase Level 120 U/L (25-115) H Lipase 305 U/L (73-393) Plan Problems: (1) Sacral decubitus ulcer Assessment & Plan: Patient identified to have a stage II sacral decubitus ulcer as well as incontinence associated dermatitis in the surrounding areas. Patient with diarrhea and sometimes sits for prolonged period times in stool. He has been changes frequently as possible by nursing staff and his been instructed to let staff know when incontinence so that they can assist him in changing. A is seen at bedside today with family available. We discussed current status and reviewed the wound together. We evaluated it cleaned and applied new dressings. We discussed the formation the etiology and the prognosis. Patient is able to move on his side on his own and is able to move in bed. He states he lays comfortably on his back but is instructed to return as much as possible. I have told him that the nursing staff and even myself and my team will assist him with turning as much as possible but given the fact that he is able to move on his own it would be strongly advised to turn as often as possible to alleviate pressure on his wound or develop new wounds. I explained to them that in laying in 1 position for prolonged period time can cause worsening cubitus ulcers or new ulcers to form. Long session was had with the patient and family and care plan was initiated. Patient is very amenable to care plan and cooperative. We will continue to monitor while inpatient and ensure improvemen Pt presents with two partial thickness pressure injuries R and L buttocks with surrounding Moisture Associated Skin Damage Partial thickness pressure injury R buttocks (L)2.2cm x (W)1cm. Base of wound is moist and viable with loose skin flap along edges. No odor or exudate. Periwound erythematous with denuded skin. Partial thickness pressure injury L buttocks. Base of wound is moist and viable. Edges are macerated. Non-blanching erythema with moisture denudement periwound.No exudate noted(L)2cm x (W)3cm.Scrotum erythematous with scattered satellite lesions at base of Scrotum. Both heels are boggy with non-blanching erythema. Pt denied tenderness when each heel individually palpated. Pt noted to be incontinent of loose B.M at start of visit. Pt also demonstrated ability to reposition self in bed but according to staff on unit pt is non- compliant and lacks motivation. PT informed of pressure injuries R and L buttocks , erythematous Scrotum and risks for further Skin decline. Pt educated on comorbidities that can contribute to wounds declining. Instructed pt to call for asst with toileting and encouraged to frequently reposition ,at least hourly while in bed. Pt declined to respond to verbal instructions. Spouse visited and updated on skin breakdown . Spouse also educated of risks for further skin breakdown if pt continues to be non-compliant with repositioning and toileting. I had a long discussion at bedside today 06/30/2019 with the patient and his . I explained to patient the above findings again and we reviewed the decubitus formation and goals and plans of care for prevention as well as improvement. I have asked patient to help mobilize himself and he was able to turn to his left side following to the right side. Given his size it does take a little bit of effort but it is possible and he is able to do it on his own. I explained to patient how important it is to continue current side specially as he can do it on its own. Patient states he just wants to relax and be comfortable on his back. I explained to them how the above findings of formed and how they may worsen if he continues to do so. Patient is clearly competent and expresses understanding. I explained the patient that it would be very important for him to continue with the plan of care that we have discussed. Patient states that it should be someone at all times to help him with these things and explained to patient that nursing staff and myself are willing and helping as much as necessary but he is capable and we strongly recommend that since he has ability it would be strongly recommended for him to offload pressure as much as possible. Tx.Plan: Apply Moisture Barrier Paste to R and L buttocks. Cover with Optifoam drsg. Change every 3 days and prn. Apply Moisture Barrier Paste to Scrotum with each incontinence care. Encourage to reposition self at least hourly while in bed. Apply Cavilon Skin Barrier to each heels. Cover each heel with OPtifoam drsg. Change every 7 days and prn. Off-load heels with Pillow. (2) Incontinence associated dermatitis (3) Left upper quadrant abdominal mass Assessment & Plan: Telemetry pancreatic mass cystic large with infiltration around it worsening on recent CT. Discussed with GI and agree will need EUS but given elevated troponins and current cardiac status will await clearance and improvement prior to proceeding with EUS. The myocardial perfusion scan demonstrates large perfusion defect involving the inferior wall and apex consistent with a myocardial infarct. This extends into the inferolateral segment. IMPRESSION: Inferior and inferolateral wall infarct including the apex. No definite evidence of myocardial ischemia. Note: The study was limited because of difficulty with gating due to the patient 's irregular heart rhythm. LVEF also could not be calculated. (4) Acute pancreatitis Assessment & Plan: Lungs: Small posterior basilar pleural effusions are demonstrated. Consolidation versus atelectasis involving the lung bases bilaterally. Similar appearance on the prior occasion.. Liver: Unremarkable Gallbladder/biliary system: Gallbladder is absent. No biliary ductal dilatation seen.. Spleen: Unremarkable Pancreas: Pancreas is atrophic. Once again there is a large approximately 10 cm well-circumscribed cystic mass in the left upper quadrant associated with the tail the pancreas. This has been previously described and was seen on the last 2 CT examinations. This cyst is questionably slightly smaller. There is however moderately increased soft tissue stranding in the area surrounding the cyst anteriorly indicative of inflammation. In addition part of the splenic flexure which abuts the cyst and traverses the area of inflammation shows focal dilatation likely a localized inflammatory response or localized ileus. The degree of inflammation has significantly increased and is worse than both the prior occasions on 06/20/2019 or on 06/15/2019. In addition the degree of anasarca has increased. There is a small amount of free fluid within the abdomen which has also increased slightly since the last study. Kidneys/Bladder: No definite stone or hydronephrosis are identified. There is a probable right renal cyst again noted. The urinary bladder is nondistended. Rivero catheter in good position. Adrenal glands: Unremarkable Bowel: Unremarkable. Aorta/IVC: Aortoiliac calcifications are noted consistent with atherosclerotic disease. Peritoneum: There is mild free fluid present within the peritoneal cavity.. Bones: There is narrowing of intervertebral discs and accompanying endplate osteophyte formation. Hypertrophied facet joints also demonstrated. Generalized osteopenia noted. Moderate osteoarthritis of both hips demonstrated. IMPRESSION: Moderate increased inflammation surrounding a 10 cm cystic mass in the left upper quadrant. The cystic mass may be slightly smaller than on the previous CT examinations performed 06/20/2019 and 06/15/2019. 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 Cystic neoplasm is not excluded. Persistent small bilateral pleural effusions and underlying consolidation/atelectasis. Trace ascites. Worsening anasarca. Status post cholecystectomy. Arterial vascular disease. [email or web address] Jul 02, 2019 15:32
[2019-07-02 16:00] VITALS: BP 154/68
--- NOTE | 2019-07-02 16:42 | Infectious Diseases Prog Note ---
Assessment/Plan Assessment/Plan 1. hx klebsiella bacteremia, sepsis, leukocytosis, ? infected pancreatic pseudocyst, ? aspiration pna/HCAP vs atx, arf, CT abdomen and pelvis noted, CT chest noted, chest x-ray noted - zosyn and zyvox, avoid nephrotoxic antibiotics - day # 7/10 combination - surveillance cultures negative - monitor labs, leukocytosis resolved - CT chest - with infiltrates - c.diff. - negative - indium scan negative 2. Shock - improved, off pressors 3. Shortness of breath, hypoxia, on BiPAP - improved, off pressors 4. Pulmonary followup. 5. Acute renal failure. 6. Anemia. 7. Diabetes. 8. Hypertension. 9. Blood sugar and blood pressure treatment per primary care team. 10. Possible CVA history. 11. No known drug allergies. 12. Social history is negative. 13. Family history is noncontributory. 14. MAR was noted. 15. Case discussed with RN. 16. Continue treatment per primary consultants. 17. ICU care. 18. Skin care protocol. 19. Orders were noted and entered. 20. GI followup. Subjective Constitutional: Denies: fever HEENT: Denies: congestion Respiratory: Denies: shortness of breath Cardiovascular: Denies: chest pain Gastrointestinal/Abdominal: Denies: nausea, vomiting, diarrhea Genitourinary: Reports: other - + contreras Neurologic: Denies: headache, numbness Psychiatric: Denies: depression Skin: Denies: rash Hematologic: Denies: bleeding Musculoskeletal: Denies: pain Allergies: Coded Allergies: No Known Allergies (Unverified , 06/02/19) Objective Vital Signs Last 24 Hour Vital Signs Date Time Temp Pulse Resp B/P (MAP) Pulse Ox O2 Delivery O2 Flow Rate FiO2 07/02/19 12:00 83 07/02/19 12:00 97.9 82 21 150/63 (92) 97 07/02/19 09:08 81 165/76 07/02/19 09:07 81 165/76 07/02/19 09:00 Nasal Cannula 1.0 07/02/19 08:00 84 07/02/19 08:00 97.5 81 21 165/76 (105) 97 07/02/19 07:43 81 18 93 Room Air 21 07/02/19 07:43 93 Room Air 21 3/11/20 04:00 77 07/02/19 04:00 96.6 78 20 160/74 (102) 96 07/02/19 00:00 75 07/02/19 00:00 97.9 71 20 157/69 (98) 97 07/01/19 21:46 76 144/60 07/01/19 21:00 Nasal Cannula 1.0 07/01/19 20:00 98.1 76 20 144/60 (88) 95 07/01/19 20:00 78 07/01/19 19:04 93 Room Air 21 07/01/19 19:04 84 18 93 Room Air 21 Height (Feet): 5 Height (Inches): 7.00 Weight (Pounds): 250 General Appearance: no acute distress HEENT: normocephalic, atraumatic, anicteric, mucous membranes moist Respiratory/Chest: lungs clear, normal breath sounds, no respiratory distress, no accessory muscle use Cardiovascular: normal rate, regular rhythm, no gallop/murmur, no JVD Abdomen: normal bowel sounds, soft, non tender, no organomegaly Genitourinary: other - + contreras - urine clear Extremities: no cyanosis Skin: no rash 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 Findings: Pulmonary vascular interstitial prominence demonstrated with cardiomegaly. There is a left-sided PICC line with the tip projected over the SVC. Old right clavicle fracture noted. IMPRESSION: Mild CHF CT abdomen and pelvis - 06/15/19 - Impression: Unilocular left upper quadrant cystic mass adjacent to the tail of pancreas and the greater curvature of the stomach. Favor pancreatic pseudocyst, particularly in view of evidence of pancreatic atrophy. However, cystic neoplasm of pancreatic, gastric, or other origin also possible. Consider contrast MRI for better characterization Small ventral hernia containing a single small loop of small bowel, no definite obstruction or strangulation related to such Mildly distended proximal small bowel with slow forward transit of ingested contrast. Suspect ileus or enteritis, although early/partial small bowel obstruction also possible. Correlate with clinical findings Mild distal soft tissue wall thickening, esophagitis possible. Correlate with clinical findings Bilateral basilar pulmonary parenchymal infiltrates versus edema, fairly extensive Cardiomegaly. Apparent bladder wall thickening. Probably an artifact of lack of distention, but cystitis also possible Nonspecific bilateral perinephric fat stranding. Suspect chronic although acute renal inflammation also possible Chest x-ray - 06/20/19 - Procedure: XRAY Chest 1v Indication: Cough Technique: One view of the chest Comparison: 06/19/2019 Findings: Right mid and lower lung infiltrates, generalized interstitial congestion persists, unchanged. Cardiomegaly again demonstrated. Impression: Unchanged, over one day, findings as above. CT abdomen and pelvis - 06/20/19 - Impression: Left upper quadrant cystic mass adjacent to the pancreatic tail and greater curvature the stomach, also reported previously, equivocally slightly larger currently. As previously described, most likely a pancreatic pseudocyst. Cystic pancreatic neoplasm also possible Trace ascites. This is a new finding since the prior exam. Bilateral pleural effusions and bilateral pulmonary parenchymal compressive atelectasis. Likewise a new finding since previous study Nonspecific bilateral perinephric fat stranding, also previously reported Bilateral basilar pulmonary interstitial and airspace edema Generalized edema of the subcutaneous fat Portable cardiomegaly Empty bladder with a Contreras catheter Degenerative spondylosis Chest x-ray - 06/24/19- Comparison: 06/12/2019 A single view chest radiograph was obtained. Findings: No definite infiltrate or pulmonary vascular congestion identified. The heart is enlarged. The aorta is mildly enlarged consistent with atherosclerotic vascular disease. The bones are osteopenic. There are thoracic vertebral enthesophytes at multiple levels. Impression: No acute disease 06/26/19 - CT scan of abdomen and pelvis: IMPRESSION: Moderate increased inflammation surrounding a 10 cm cystic mass in the left upper quadrant. The cystic mass may be slightly smaller than on the previous CT examinations performed 06/20/2019 and 06/15/2019. 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 Cystic neoplasm is not excluded. Persistent small bilateral pleural effusions and underlying consolidation/atelectasis. Trace ascites. Worsening anasarca. Status post cholecystectomy. Arterial vascular disease. Chest x-ray - 06/25/19 - Procedure: XRAY Chest 1v Indication: Dyspnea Comparison: 06/23/2019 A single view chest radiograph was obtained. Findings: Interstitial is mildly prominent but findings appear stable. There is suspected mild atelectasis right lung base. Please correlate clinically. Similar findings seen previously. The heart is enlarged. IMPRESSION: Mild right basal atelectasis. No change otherwise. CT chest: IMPRESSION: Bilateral lower lobe infiltrates and/or atelectasis. Mild to moderate bilateral pleural effusions. Minimal scarring in the left anterior upper lobe. Arterial vascular disease Cardiomegaly Status post cholecystectomy Indium scan - negative, report noted Microbiology Date/Time Source Procedure Growth Status 06/25/19 10:20 Blood Blood Culture - Final NO GROWTH AFTER 5 DAYS Complete 06/17/19 10:00 Sputum Induced Gram Stain - Final Complete 06/17/19 10:00 Sputum Induced Sputum Culture - Final NO GROWTH AFTER 48 HOURS Complete 06/30/19 18:00 Stool Clostridium difficile Toxin Assay - Final Complete 06/25/19 18:00 Indwelling Cath Urine Culture - Final NO GROWTH AFTER 48 HOURS Complete 06/22/19 21:00 Arm Left Catheter Tip Culture - Final NO GROWTH AFTER 4 DAYS Complete Microbiology Date/Time Source Procedure Growth Status 06/30/19 18:00 Stool Clostridium difficile Toxin Assay - Final Complete Laboratory Tests Test 07/02/19 05:39 White Blood Count 9.6 K/UL (4.8-10.8) Red Blood Count 3.46 M/UL (4.70-6.10) L Hemoglobin 9.8 G/DL (14.2-18.0) L Hematocrit 29.7 % (42.0-52.0) L Mean Corpuscular Volume 86 FL (80-99) Mean Corpuscular Hemoglobin 28.2 PG (27.0-31.0) Mean Corpuscular Hemoglobin Concent 32.9 G/DL (32.0-36.0) Red Cell Distribution Width 12.9 % (11.6-14.8) Platelet Count 163 K/UL (150-450) Mean Platelet Volume 8.1 FL (6.5-10.1) Neutrophils (%) (Auto) 79.9 % (45.0-75.0) H Lymphocytes (%) (Auto) 8.9 % (20.0-45.0) L Monocytes (%) (Auto) 7.8 % (1.0-10.0) Eosinophils (%) (Auto) 1.5 % (0.0-3.0) Basophils (%) (Auto) 1.8 % (0.0-2.0) Sodium Level 142 MMOL/L (136-145) Potassium Level 3.5 MMOL/L (3.5-5.1) Chloride Level 109 MMOL/L (98-107) H Carbon Dioxide Level 24 MMOL/L (21-32) Anion Gap 9 mmol/L (5-15) Blood Urea Nitrogen 20 mg/dL (7-18) H Creatinine 1.3 MG/DL (0.55-1.30) Estimat Glomerular Filtration Rate 54.1 mL/min (>60) Glucose Level 138 MG/DL (74-106) H Calcium Level 8.0 MG/DL (8.5-10.1) L Amylase Level 120 U/L (25-115) H Lipase 305 U/L (73-393) Current Medications Medications (Trade) Dose Ordered Sig/Arley Route PRN Reason Start Time Stop Time Status Last Admin Dose Admin Acetaminophen (Tylenol) 650 mg Q4H PRN ORAL Mild Pain (Pain Scale 1-3) 06/24/19 19:00 07/15/19 18:59 06/29/19 03:41 Albumin Human 50 ml @ 50 mls/hr DAILYPRN PRN IV For hypotension 06/25/19 09:00 07/25/19 08:59 Albuterol/ Ipratropium (Albuterol/ Ipratropium) 3 ml Q4H PRN HHN Shortness of Breath 06/29/19 16:43 07/04/19 16:42 Amlodipine Besylate (Norvasc) 10 mg DAILY ORAL 07/02/19 09:00 07/24/19 08:59 07/02/19 09:07 Amylase/Lipase/ Protease (Zenpep) 3 ea THREE TIMES A DAY ORAL 06/26/19 14:00 07/26/19 13:59 07/02/19 12:24 Aspirin (ASA) 81 mg DAILY ORAL 06/25/19 09:00 07/20/19 08:59 07/02/19 09:08 Bisacodyl (Dulcolax) 10 mg DAILYPRN PRN RECTAL Constipation 06/24/19 19:00 07/24/19 18:59 Dextrose (Dextrose 50%) 25 ml Q30M PRN IV Hypoglycemia 06/24/19 18:45 07/16/19 18:05 Dextrose (Dextrose 50%) 50 ml Q30M PRN IV Hypoglycemia 06/24/19 18:45 07/16/19 18:05 Insulin Aspart (NovoLOG) AC+HS SUBQ 06/24/19 21:00 07/20/19 17:59 07/02/19 12:27 Linezolid 300 ml @ 300 mls/hr EVERY 12 HOURS IVPB 06/26/19 21:00 07/03/19 20:59 07/02/19 09:09 Lisinopril (ZestriL) 10 mg DAILY ORAL 07/03/19 09:00 08/02/19 08:59 Loperamide HCl (Imodium) 2 mg Q4H PRN ORAL Diarrhea 07/02/19 10:29 08/01/19 10:28 Magnesium Hydroxide (Mom) 30 ml HSPRN PRN ORAL Constipation 06/24/19 21:00 07/15/19 20:59 Metoprolol Tartrate (Lopressor) 25 mg Q12HR ORAL 06/24/19 21:00 07/20/19 08:59 07/02/19 09:08 Ondansetron HCl (Zofran) 4 mg Q6H PRN IVP Nausea & Vomiting 06/24/19 19:00 07/24/19 18:59 Pantoprazole (Protonix) 40 mg DAILY ORAL 06/28/19 09:00 07/28/19 08:59 07/02/19 09:08 Piperacillin Sod/ Tazobactam Sod 3.375 gm/Sodium Chloride 110 ml @ 27.5 mls/hr EVERY 8 HOURS IVPB 06/28/19 14:00 07/03/19 23:59 07/02/19 14:01 Spironolactone (Aldactone) 12.5 mg DAILY ORAL 07/02/19 09:00 08/01/19 08:59 07/02/19 09:14 Pranay Waller MD Jul 02, 2019 16:42
--- NOTE | 2019-07-02 18:44 | NUR ---
NURSE NOTES: Received patient from . patient is A&O x3-4. Not in acute respiratory/cardiac distress. Re-orientation given about the unit. all belongings are accounted for. No missing items. Skin assessment done, noted with skin break on buttocks. picture taken and uploaded. Call light within reach. Bed is in lowest position and locked. Will continue plan of care.
--- NOTE | 2019-07-02 18:47 | NUR ---
TRANSFER TO FLOOR: Patient transferred to [facility] (4E) room 402-2, per . Report given to She Acevedo/RN. Belongings and medications given to receiving nurse. Wound picture taken, Patient is in stable condition. Endorsed plan of care.
--- NOTE | 2019-07-02 19:15 | NUR ---
NURSE NOTES: Received patient on bed, awake and verbally responsive. no sob. no pain or discomfort. with iv line on the left hand, saline lock. contreras catheter noted draining a light yellow urine. no scd's noted. per previous nurse, the pt is refusing to attached the scd's. bed locked and in lowest position. call light and light button within easy reach. bed alarm on. will continue plan of care.
--- NOTE | 2019-07-02 19:15 | NUR ---
HAND-OFF: Report given to Jen and endorsed plan of care.
[2019-07-02 20:00] VITALS: BP 140/68
[2019-07-02] MEDS ORDERED: Albuterol/Ipratropium 3ml neb HHN PRN (20:45)
[2019-07-02] MEDS ORDERED: Milk of Magnesia 30ml Ud ORAL PRN (21:00)
[2019-07-02] MEDS ORDERED: Piperacillin/Tazobactam 3.375 GM in NS 110 ML IVPB SCH (22:00)
[2019-07-03] VITALS: BP 138/70
[2019-07-03 04:00] VITALS: BP 148/69
[2019-07-03] MEDS: Piperacillin/Tazobactam 3.375 GM in NS 110 ML IVPB SCH ×2 (05:35→13:13)
[2019-07-03] MEDS: NovoLOG Insulin Flexpen SUBQ SCH ×4 (06:06→20:45)
[2019-07-03 06:16] LABS: BASOPHILS % (AUTO) 1.9 % (0.0-2.0); EOSINOPHILS % (AUTO) 1.3 % (0.0-3.0); HEMATOCRIT 27.9 % (42.0-52.0); HEMOGLOBIN 9.3 G/DL (14.2-18.0); LYMPHOCYTES % (AUTO) 9.5 % (20.0-45.0); MEAN CORPUSCULAR VOLUME 86 FL (80-99); MONOCYTES % (AUTO) 8.3 % (1.0-10.0); PLATELET COUNT 148 K/UL (150-450); RED BLOOD COUNT 3.26 M/UL (4.70-6.10); RED CELL DISTRIBUTION WIDTH 12.9 % (11.6-14.8)
[2019-07-03 06:29] LABS: ANION GAP 11 mmol/L (5-15); BLOOD UREA NITROGEN 20 mg/dL (7-18); CALCIUM 7.9 MG/DL (8.5-10.1); CARBON DIOXIDE 22 MMOL/L (21-32); CHLORIDE 108 MMOL/L (98-107); CREATININE 1.4 MG/DL (0.55-1.30); POTASSIUM 3.3 MMOL/L (3.5-5.1); SODIUM 141 MMOL/L (136-145)
--- NOTE | 2019-07-03 07:32 | NUR ---
NURSE NOTES: Report recieved from Jen SCHULER. Patient is awake and alert x 3. Patient not in respiratory distress at this time. Patient has no complaints at this time. Patient noted to have a contreras catheter in place and patent. Draining clear yellow urine. 20 jamee IV note in left hand. Bed locked, in lowest position, and alarmed. Call light in reach. Will continue to follow plan of care.
--- NOTE | 2019-07-03 07:32 | NUR ---
HAND-OFF: Report given to nikita hess .
[2019-07-03 08:00] VITALS: BP 156/73
[2019-07-03] MEDS ORDERED: Lisinopril 10mg tab ORAL SCH (09:00)
[2019-07-03] MEDS: Pancrelipase Dr Cap ORAL SCH ×3 (09:55→17:50)
[2019-07-03] MEDS: Aspirin Baby 81mg ORAL SCH (09:56)
[2019-07-03] MEDS: Spironolactone 25mg tab ORAL SCH (09:57)
[2019-07-03] MEDS: Lisinopril 10mg tab ORAL SCH (09:58)
--- NOTE | 2019-07-03 10:34 | General Progress Note ---
Assessment/Plan Status: unchanged Assessment/Plan: 73 y/o M with PMH HTN, IDDM, ? history of CVA who [place] [facility] [place]omiting. On admission pt w/acute respiratory failure, initially admitted to ICU, was placed on BiPAP, pt improved and now on NC. Pt was found to have Klebsiella bacteremia, ID consulted and pt was started on zosyn and zyvox. WBC's elevated on 06/25 for which repeat BCx were drawn which are negative at this time. Pt w/elevated lipase, found to have acute pancreatitis, CT abd revealed pancreatic pseudocyst for which GI was consulted, pt will need EUS once more stable. Pt also w/NSTEMI, acute on chronic heart failure, cardio consulted and plan for stress test once more stable. #Klebsiella bacteremia #Leukocytosis - downtrending #? infected pancreatic pseudocyst, ? aspiration pna/HCAP vs atx, arf -BCx on admission pt was found to be in septic shock, now resolved, BCx + for klebsiella bacteremia -BCx / NGTD -BCx / NGTD -UCx / NGTD -on 06/25 pt w/leukocytosis, repeat BCx / NGTD -CT A/P on 06/25: with mild improvement of pseudocyst. no abscess or acute pathology identified. -indium scan negative -cont zosyn, zyvox for 2 more days #Chronic systolic CHF, HFrEF 40% TTE with EF ~40% Continue MTP 25 BID Cardiology following started on Aldactone Stress test without reversible ischemia #acute hypoxic resp failure without hypercarbia - stable off BiPAP continue inhaled bronchodilators Pulm/CCM following bipap prn and QHS - patient noncompliant #NSTEMI, peak trop of 2, likely due to demand ischemia was initially placed on heparin on admission, now off heparin Cardiology following #acute kidney injury on CKD, possible ATN - downtrending s/p IV hydration cont. to monitor BMP avoid nephrotoxic meds scr with improvement Nephrology following #acute pancreatitis #Pancreatic Pseudocyst low fat diet PPI Pancreaolipase EUS on Monday 07/03 #Thrombocytopenia - resolved #Rule out HIT etiology likely multifactorial, likely due to sepsis cont to monitor daily CBC Hematology following - ok for DVT ppx w/heparin or lovenox when plts >50k #Hypokalemia, hypomagnesemia - resolved replaced, cont. to monitor, replace PRN #lactic acidosis #HTN cont Norvasc #DM type 2 ISS #Septic shock - resolved on admission pt was in ICU, now improved off pressors cont. to monitor VTE PPx - SCDs Full Code Time spent on encounter: 35 mins, >50% on counseling, coordination of care. Time of note doesn't reflect time of encounter. Subjective Date patient seen: Jul 03, 2019 Time patient seen: 07:22 ROS Limited/Unobtainable: No Constitutional: Denies: chills, fever Cardiovascular: Denies: chest pain Respiratory: Denies: cough Gastrointestinal/Abdominal: Denies: abdomen distended, abdominal pain, black stools Neurologic/Psychiatric: Denies: anxiety, depressed Allergies: Coded Allergies: No Known Allergies (Unverified , 06/02/19) Subjective Follow up for septic shock, acute hypoxic resp failure, ZARINA, acute metabolic encephalopathy No current complaints, denies abdominal pain, nausea, vomiting Stress test negative for reversible ischemia Indium scan negative Plan for EUS Sunday Objective Last 24 Hour Vital Signs Date Time Temp Pulse Resp B/P (MAP) Pulse Ox O2 Delivery O2 Flow Rate FiO2 07/03/19 09:58 156/73 07/03/19 09:58 88 156/73 07/03/19 09:55 88 156/73 07/03/19 07:35 68 20 98 Room Air 21 07/03/19 04:00 98.1 87 21 148/69 (95) 94 07/03/19 00:00 98.1 80 20 138/70 (92) 94 07/02/19 21:00 Nasal Cannula 1.0 07/02/19 20:20 87 140/68 07/02/19 20:00 97.5 87 21 140/68 (92) 94 07/02/19 19:45 95 Room Air 21 07/02/19 19:45 87 20 95 Room Air 21 07/02/19 16:00 81 07/02/19 16:00 97.7 81 20 154/68 (96) 97 07/02/19 12:00 83 07/02/19 12:00 97.9 82 21 150/63 (92) 97 Intake and Output 07/02/19 07/03/19 19:00 07:00 Intake Total 960 ml 850 ml Output Total 1300 ml Balance 960 ml -450 ml Intake Oral 960 ml 850 ml Output Urine Total 1300 ml # Bowel Movements 2 2 Laboratory Tests 07/03/19 05:35: White Blood Count 8.0, Red Blood Count 3.26L, Hemoglobin 9.3L, Hematocrit 27.9L , Mean Corpuscular Volume 86, Mean Corpuscular Hemoglobin 28.6, Mean Corpuscular Hemoglobin Concent 33.4, Red Cell Distribution Width 12.9, Platelet Count 148L, Mean Platelet Volume 7.9, Neutrophils (%) (Auto) 79.0H, Lymphocytes (%) (Auto) 9.5L, Monocytes (%) (Auto) 8.3, Eosinophils (%) (Auto) 1.3, Basophils (%) (Auto) 1.9, Sodium Level 141, Potassium Level 3.3L, Chloride Level 108H, Carbon Dioxide Level 22, Anion Gap 11, Blood Urea Nitrogen 20H, Creatinine 1.4H, Estimat Glomerular Filtration Rate 49.7, Glucose Level 123H, Calcium Level 7.9L Height (Feet): 5 Height (Inches): 7.00 Weight (Pounds): 248 General Appearance: no apparent distress, alert Neck: normal alignment, supple Cardiovascular: normal peripheral pulses, normal rate, regular rhythm Respiratory/Chest: lungs clear, normal breath sounds Abdomen: non tender, soft Harinder Ochoa MD Jul 03, 2019 10:34
--- NOTE | 2019-07-03 11:11 | GI Progress Note ---
Assessment/Plan Problems: (1) Thrombocytopenia ICD Codes: D69.6 - Thrombocytopenia, unspecified SNOMED: 878266889 (2) Acute pancreatitis ICD Codes: K85.90 - Acute pancreatitis without necrosis or infection, unspecified SNOMED: 685061226 Qualifiers: Qualified Codes: K85.90 - Acute pancreatitis without necrosis or infection, unspecified (3) Left upper quadrant abdominal mass ICD Codes: R19.02 - Left upper quadrant abdominal swelling, mass and lump SNOMED: 190910467 (4) Pancreatic pseudocyst ICD Codes: K86.3 - Pseudocyst of pancreas SNOMED: 194810799 Status: stable Status Narrative Discussed with Dr. Akbar. Assessment/Plan anemia esophagitis CM pancreatic pseudocyst CAD obesity sepsis stool studies neg cdiff neg plan for EUS tomorrow NPO @ [place]. imodium prn on low fat diet repeat CT reviewed abx per id fu cardiology ad nephrology repeat labs in am ppi pancreolipase The patient was seen and examined at bedside and all new and available data was reviewed in the patients chart. I agree with the above findings, impression and plan. (Patient seen earlier today. Signature stamp does not reflect patient encounter time.). - Peyman Akbar MD Subjective Subjective loose stools Objective Last 24 Hour Vital Signs Date Time Temp Pulse Resp B/P (MAP) Pulse Ox O2 Delivery O2 Flow Rate FiO2 07/03/19 09:58 156/73 07/03/19 09:58 88 156/73 07/03/19 09:55 88 156/73 07/03/19 09:00 Nasal Cannula 1.0 07/03/19 08:00 98.3 88 23 156/73 (100) 94 07/03/19 07:35 68 20 98 Room Air 21 07/03/19 04:00 98.1 87 21 148/69 (95) 94 07/03/19 00:00 98.1 80 20 138/70 (92) 94 07/02/19 21:00 Nasal Cannula 1.0 07/02/19 20:20 87 140/68 07/02/19 20:00 97.5 87 21 140/68 (92) 94 07/02/19 19:45 95 Room Air 21 07/02/19 19:45 87 20 95 Room Air 21 07/02/19 16:00 81 07/02/19 16:00 97.7 81 20 154/68 (96) 97 07/02/19 12:00 83 07/02/19 12:00 97.9 82 21 150/63 (92) 97 Intake and Output 07/02/19 07/03/19 19:00 07:00 Intake Total 960 ml 850 ml Output Total 1300 ml Balance 960 ml -450 ml Intake Oral 960 ml 850 ml Output Urine Total 1300 ml # Bowel Movements 2 2 Laboratory Tests Test 07/03/19 05:35 White Blood Count 8.0 K/UL (4.8-10.8) Red Blood Count 3.26 M/UL (4.70-6.10) L Hemoglobin 9.3 G/DL (14.2-18.0) L Hematocrit 27.9 % (42.0-52.0) L Mean Corpuscular Volume 86 FL (80-99) Mean Corpuscular Hemoglobin 28.6 PG (27.0-31.0) Mean Corpuscular Hemoglobin Concent 33.4 G/DL (32.0-36.0) Red Cell Distribution Width 12.9 % (11.6-14.8) Platelet Count 148 K/UL (150-450) L Mean Platelet Volume 7.9 FL (6.5-10.1) Neutrophils (%) (Auto) 79.0 % (45.0-75.0) H Lymphocytes (%) (Auto) 9.5 % (20.0-45.0) L Monocytes (%) (Auto) 8.3 % (1.0-10.0) Eosinophils (%) (Auto) 1.3 % (0.0-3.0) Basophils (%) (Auto) 1.9 % (0.0-2.0) Sodium Level 141 MMOL/L (136-145) Potassium Level 3.3 MMOL/L (3.5-5.1) L Chloride Level 108 MMOL/L (98-107) H Carbon Dioxide Level 22 MMOL/L (21-32) Anion Gap 11 mmol/L (5-15) Blood Urea Nitrogen 20 mg/dL (7-18) H Creatinine 1.4 MG/DL (0.55-1.30) H Estimat Glomerular Filtration Rate 49.7 mL/min (>60) Glucose Level 123 MG/DL (74-106) H Calcium Level 7.9 MG/DL (8.5-10.1) L Height (Feet): 5 Height (Inches): 7.00 Weight (Pounds): 248 General Appearance: WD/WN, no apparent distress, alert Cardiovascular: normal rate Respiratory/Chest: normal breath sounds, no respiratory distress Abdominal Exam: normal bowel sounds, non tender, soft Extremities: normal range of motion, non-tender Denise Enamorado NP Jul 03, 2019 11:11
[2019-07-03 12:00] VITALS: BP 152/75
--- NOTE | 2019-07-03 15:21 | Hematology/Onc Progress Note ---
Assessment/Plan Assessment/Plan Assessment and recs: # Leukocytosis with hx of infection, hx klebsiella bacteremia, sepsis, leukocytosis, infected pancreatic pseudocyst, ? aspiration pna/HCAP vs atx, arf , CT abdomen and pelvis noted -> ct a/p reviewed --> wbc 15-->30-->24-->13.4-->10-->9.3 --> on vanc/zosyn-->zosyn # 10.7 cm unilocular cystic structure in the left upper quadrant retroperitoneal , corresponding to findings reported on recent CT scan. Most likely represents a pancreatic pseudocyst. --> continue to monitor as per gi --> repeat us or ct in short order, weeks to months to re-eval --> repeat ct showed mild enlargement of cyst/mass, will need further repeat imaging --> may need indium scan # Thrombocytopenia - potential causes multifactorial, in this case due to sepsis , less likely due to heparin --> Hep panel and HIV are negative --> US abd to evaluate for cirrhosis and hsm ordered and none noted --> Peripheral smear ordered to evaluate for blasts /schistocytes --> abx and other meds have been reviewed --> ok for ppx if plt >50k w/ either heparin or lovenox --> Transfuse if Plt < 20k and fever, or if Plt < 10k without fever --> plt trend 41-->49k-->63k-->110-->208-->148 # DM, ? history of CVA who presented to [facility] with nausea,vomiting. --> a1c goal <8, accuchecks qac/qhs # Septic shock, POA, possible biliary source --> cont ICU level of care --> cont IV hydration --> on abx, as per pulm/cc # Acute hypoxic resp failure without hypercarbia --> Intermittent BiPAP --> continue inhaled bronchodilators # NSTEMI, peak trop of 2, likely due to demand ischemia --> Stop heparin due to thrombocytopenia --> duplex lower legs is neg --> HIT neg --> per cards # Acute kidney injury on CKD, possible ATN --> Nephrology following # Acute pancreatitis --> hydration # HTN --> cont to hold BP meds # DM type 2 --> ISS # Dvt ppx scds Appreciate consultation and sydney Rn Subjective Allergies: Coded Allergies: No Known Allergies (Unverified , 06/02/19) Subjective 06/20: awake and alert, no overnight events, v mask 06/22: plts remain low, in the 40s, off anticaog, sydney rn, pending labs 06/23: is on broad spectrum abx, fluncon, ctx, flagyl, vanc, no f/c 06/24: on tele, no overnight events, wbc at 29.8, plt count improved 06/25: ct a/p is still pending given elev wbc, off pressors in tele 06/26: wbc continues to be elev, ct a/p reviewed, potentially smaller pseudocyst, may need indium scan 06/28: s/p wbc scan, on tele, no acute distress, nc 06/29: no bleeding or chills, labs re noted, no night sweats, cbc and bmp ordered 06/30: no events, less diarrhea with iimmdium given, c. diff is neg, labs ordered 07/01: sleeping comfortably, no events, wbc has improved, cbc pending 07/02: alert, no overnight events, bp on high end this am, no resp distress Objective Objective Current Medications Medications (Trade) Dose Ordered Sig/Arley Route PRN Reason Start Time Stop Time Status Last Admin Dose Admin Acetaminophen (Tylenol) 650 mg Q4H PRN ORAL Mild Pain (Pain Scale 1-3) 07/02/19 19:00 07/15/19 18:59 Albumin Human 50 ml @ 50 mls/hr DAILYPRN PRN IV For hypotension 07/02/19 19:00 08/01/19 18:59 Albuterol/ Ipratropium (Albuterol/ Ipratropium) 3 ml Q4H PRN HHN Shortness of Breath 07/02/19 20:45 07/04/19 16:42 Amlodipine Besylate (Norvasc) 10 mg DAILY ORAL 07/03/19 09:00 07/24/19 08:59 07/03/19 09:58 Amylase/Lipase/ Protease (Zenpep) 3 ea THREE TIMES A DAY ORAL 07/03/19 09:00 07/26/19 13:59 07/03/19 13:13 Aspirin (ASA) 81 mg DAILY ORAL 07/03/19 09:00 07/20/19 08:59 07/03/19 09:56 Bisacodyl (Dulcolax) 10 mg DAILYPRN PRN RECTAL Constipation 07/02/19 19:00 07/24/19 18:59 Dextrose (Dextrose 50%) 25 ml Q30M PRN IV Hypoglycemia 07/02/19 19:15 07/16/19 18:05 Dextrose (Dextrose 50%) 50 ml Q30M PRN IV Hypoglycemia 07/02/19 19:15 07/16/19 18:05 Insulin Aspart (NovoLOG) AC+HS SUBQ 07/02/19 21:00 07/20/19 17:59 07/03/19 13:15 Linezolid 300 ml @ 300 mls/hr EVERY 12 HOURS IVPB 07/02/19 21:00 07/09/19 20:59 07/03/19 09:54 Lisinopril (ZestriL) 10 mg DAILY ORAL 07/03/19 09:00 08/02/19 08:59 07/03/19 09:58 Loperamide HCl (Imodium) 2 mg Q4H PRN ORAL Diarrhea 07/02/19 19:00 08/01/19 18:59 Magnesium Hydroxide (Mom) 30 ml HSPRN PRN ORAL Constipation 07/02/19 21:00 07/15/19 20:59 Metoprolol Tartrate (Lopressor) 25 mg Q12HR ORAL 07/02/19 21:00 07/20/19 08:59 07/03/19 09:55 Ondansetron HCl (Zofran) 4 mg Q6H PRN IVP Nausea & Vomiting 07/02/19 19:00 07/24/19 18:59 Pantoprazole (Protonix) 40 mg DAILY ORAL 07/03/19 09:00 07/28/19 08:59 07/03/19 09:56 Piperacillin Sod/ Tazobactam Sod 3.375 gm/Sodium Chloride 110 ml @ 27.5 mls/hr Q8H IVPB 07/02/19 22:00 07/09/19 21:59 07/03/19 13:13 Spironolactone (Aldactone) 12.5 mg DAILY ORAL 07/03/19 09:00 08/01/19 08:59 07/03/19 09:57 Last 24 Hour Vital Signs Date Time Temp Pulse Resp B/P (MAP) Pulse Ox O2 Delivery O2 Flow Rate FiO2 07/03/19 12:00 97.9 59 21 152/75 (100) 94 07/03/19 09:58 156/73 07/03/19 09:58 88 156/73 07/03/19 09:55 88 156/73 07/03/19 09:00 Nasal Cannula 1.0 07/03/19 08:00 98.3 88 23 156/73 (100) 94 07/03/19 07:35 68 20 98 Room Air 21 07/03/19 04:00 98.1 87 21 148/69 (95) 94 07/03/19 00:00 98.1 80 20 138/70 (92) 94 07/02/19 21:00 Nasal Cannula 1.0 07/02/19 20:20 87 140/68 07/02/19 20:00 97.5 87 21 140/68 (92) 94 07/02/19 19:45 95 Room Air 21 07/02/19 19:45 87 20 95 Room Air 21 07/02/19 16:00 81 07/02/19 16:00 97.7 81 20 154/68 (96) 97 07/02/19 12:00 83 07/02/19 12:00 97.9 82 21 150/63 (92) 97 07/02/19 09:08 81 165/76 07/02/19 09:07 81 165/76 07/02/19 09:00 Nasal Cannula 1.0 07/02/19 08:00 84 07/02/19 08:00 97.5 81 21 165/76 (105) 97 07/02/19 07:43 81 18 93 Room Air 21 07/02/19 07:43 93 Room Air 21 07/02/19 04:00 77 07/02/19 04:00 96.6 78 20 160/74 (102) 96 07/02/19 00:00 75 07/02/19 00:00 97.9 71 20 157/69 (98) 97 07/01/19 21:46 76 144/60 07/01/19 21:00 Nasal Cannula 1.0 07/01/19 20:00 98.1 76 20 144/60 (88) 95 07/01/19 20:00 78 07/01/19 19:04 93 Room Air 21 07/01/19 19:04 84 18 93 Room Air 21 07/01/19 16:00 97.5 75 20 156/61 (92) 96 07/01/19 16:00 78 Intake and Output 07/02/19 07/03/19 19:00 07:00 Intake Total 960 ml 850 ml Output Total 1300 ml Balance 960 ml -450 ml Intake Oral 960 ml 850 ml Output Urine Total 1300 ml # Bowel Movements 2 2 Labs Test 07/01/19 04:45 07/02/19 05:39 07/03/19 05:35 White Blood Count 11.2 K/UL (4.8-10.8) 9.6 K/UL (4.8-10.8) 8.0 K/UL (4.8-10.8) Red Blood Count 3.48 M/UL (4.70-6.10) 3.46 M/UL (4.70-6.10) 3.26 M/UL (4.70-6.10) Hemoglobin 10.0 G/DL (14.2-18.0) 9.8 G/DL (14.2-18.0) 9.3 G/DL (14.2-18.0) Hematocrit 29.9 % (42.0-52.0) 29.7 % (42.0-52.0) 27.9 % (42.0-52.0) Mean Corpuscular Volume 86 FL (80-99) 86 FL (80-99) 86 FL (80-99) Mean Corpuscular Hemoglobin 28.7 PG (27.0-31.0) 28.2 PG (27.0-31.0) 28.6 PG (27.0-31.0) Mean Corpuscular Hemoglobin Concent 33.5 G/DL (32.0-36.0) 32.9 G/DL (32.0-36.0) 33.4 G/DL (32.0-36.0) Red Cell Distribution Width 13.0 % (11.6-14.8) 12.9 % (11.6-14.8) 12.9 % (11.6-14.8) Platelet Count 170 K/UL (150-450) 163 K/UL (150-450) 148 K/UL (150-450) Mean Platelet Volume 8.0 FL (6.5-10.1) 8.1 FL (6.5-10.1) 7.9 FL (6.5-10.1) Neutrophils (%) (Auto) 82.6 % (45.0-75.0) 79.9 % (45.0-75.0) 79.0 % (45.0-75.0) Lymphocytes (%) (Auto) 7.5 % (20.0-45.0) 8.9 % (20.0-45.0) 9.5 % (20.0-45.0) Monocytes (%) (Auto) 7.3 % (1.0-10.0) 7.8 % (1.0-10.0) 8.3 % (1.0-10.0) Eosinophils (%) (Auto) 1.1 % (0.0-3.0) 1.5 % (0.0-3.0) 1.3 % (0.0-3.0) Basophils (%) (Auto) 1.5 % (0.0-2.0) 1.8 % (0.0-2.0) 1.9 % (0.0-2.0) Sodium Level 141 MMOL/L (136-145) 142 MMOL/L (136-145) 141 MMOL/L (136-145) Potassium Level 3.7 MMOL/L (3.5-5.1) 3.5 MMOL/L (3.5-5.1) 3.3 MMOL/L (3.5-5.1) Chloride Level 109 MMOL/L (98-107) 109 MMOL/L (98-107) 108 MMOL/L (98-107) Carbon Dioxide Level 21 MMOL/L (21-32) 24 MMOL/L (21-32) 22 MMOL/L (21-32) Anion Gap 11 mmol/L (5-15) 9 mmol/L (5-15) 11 mmol/L (5-15) Blood Urea Nitrogen 21 mg/dL (7-18) 20 mg/dL (7-18) 20 mg/dL (7-18) Creatinine 1.5 MG/DL (0.55-1.30) 1.3 MG/DL (0.55-1.30) 1.4 MG/DL (0.55-1.30) Estimat Glomerular Filtration Rate 45.9 mL/min (>60) 54.1 mL/min (>60) 49.7 mL/min (>60) Glucose Level 145 MG/DL (74-106) 138 MG/DL (74-106) 123 MG/DL (74-106) Calcium Level 7.8 MG/DL (8.5-10.1) 8.0 MG/DL (8.5-10.1) 7.9 MG/DL (8.5-10.1) Amylase Level 120 U/L (25-115) Lipase 305 U/L (73-393) Height (Feet): 5 Height (Inches): 7.00 Weight (Pounds): 248 Objective PE General Appearance: no apparent distress, alert HEENT: atraumatic, anicteric Neck: normal alignment, supple Respiratory/Chest: lungs clear, normal breath sounds, no respiratory distress. NC+ Cardiovascular/Chest: normal rate, regular rhythm Abdomen: non tender, soft, no organomegaly Extremities: non-tender, normal inspection Skin Exam: warm/dry, cyanotic Neurologic: alert Gu: ++ Kana Goyal MD Jul 03, 2019 15:21
--- NOTE | 2019-07-03 15:45 | Surgery Progress Note ---
Surgery Progress Note Subjective Additional Comments No acute events. Resting comfortably. Still remains fairly supine does not turn often. Downgraded is improving. Objective Last 24 Hour Vital Signs Date Time Temp Pulse Resp B/P (MAP) Pulse Ox O2 Delivery O2 Flow Rate FiO2 07/03/19 12:00 97.9 59 21 152/75 (100) 94 07/03/19 09:58 156/73 07/03/19 09:58 88 156/73 07/03/19 09:55 88 156/73 07/03/19 09:00 Nasal Cannula 1.0 07/03/19 08:00 98.3 88 23 156/73 (100) 94 07/03/19 07:35 68 20 98 Room Air 21 07/03/19 04:00 98.1 87 21 148/69 (95) 94 07/03/19 00:00 98.1 80 20 138/70 (92) 94 07/02/19 21:00 Nasal Cannula 1.0 07/02/19 20:20 87 140/68 07/02/19 20:00 97.5 87 21 140/68 (92) 94 07/02/19 19:45 95 Room Air 21 07/02/19 19:45 87 20 95 Room Air 21 07/02/19 16:00 81 07/02/19 16:00 97.7 81 20 154/68 (96) 97 I&O Intake and Output 07/02/19 07/03/19 19:00 07:00 Intake Total 960 ml 850 ml Output Total 1300 ml Balance 960 ml -450 ml Intake Oral 960 ml 850 ml Output Urine Total 1300 ml # Bowel Movements 2 2 Dressing: other Wound: other Drains: other Cardiovascular: RSR Respiratory: decreased breath sounds Abdomen: soft, present bowel sounds Extremities: no tenderness, no cyanosis Laboratory Tests Test 07/03/19 05:35 White Blood Count 8.0 K/UL (4.8-10.8) Red Blood Count 3.26 M/UL (4.70-6.10) L Hemoglobin 9.3 G/DL (14.2-18.0) L Hematocrit 27.9 % (42.0-52.0) L Mean Corpuscular Volume 86 FL (80-99) Mean Corpuscular Hemoglobin 28.6 PG (27.0-31.0) Mean Corpuscular Hemoglobin Concent 33.4 G/DL (32.0-36.0) Red Cell Distribution Width 12.9 % (11.6-14.8) Platelet Count 148 K/UL (150-450) L Mean Platelet Volume 7.9 FL (6.5-10.1) Neutrophils (%) (Auto) 79.0 % (45.0-75.0) H Lymphocytes (%) (Auto) 9.5 % (20.0-45.0) L Monocytes (%) (Auto) 8.3 % (1.0-10.0) Eosinophils (%) (Auto) 1.3 % (0.0-3.0) Basophils (%) (Auto) 1.9 % (0.0-2.0) Sodium Level 141 MMOL/L (136-145) Potassium Level 3.3 MMOL/L (3.5-5.1) L Chloride Level 108 MMOL/L (98-107) H Carbon Dioxide Level 22 MMOL/L (21-32) Anion Gap 11 mmol/L (5-15) Blood Urea Nitrogen 20 mg/dL (7-18) H Creatinine 1.4 MG/DL (0.55-1.30) H Estimat Glomerular Filtration Rate 49.7 mL/min (>60) Glucose Level 123 MG/DL (74-106) H Calcium Level 7.9 MG/DL (8.5-10.1) L Plan Problems: (1) Sacral decubitus ulcer Assessment & Plan: Patient identified to have a stage II sacral decubitus ulcer as well as incontinence associated dermatitis in the surrounding areas. Patient with diarrhea and sometimes sits for prolonged period times in stool. He has been changes frequently as possible by nursing staff and his been instructed to let staff know when incontinence so that they can assist him in changing. A is seen at bedside today with family available. We discussed current status and reviewed the wound together. We evaluated it cleaned and applied new dressings. We discussed the formation the etiology and the prognosis. Patient is able to move on his side on his own and is able to move in bed. He states he lays comfortably on his back but is instructed to return as much as possible. I have told him that the nursing staff and even myself and my team will assist him with turning as much as possible but given the fact that he is able to move on his own it would be strongly advised to turn as often as possible to alleviate pressure on his wound or develop new wounds. I explained to them that in laying in 1 position for prolonged period time can cause worsening cubitus ulcers or new ulcers to form. Long session was had with the patient and family and care plan was initiated. Patient is very amenable to care plan and cooperative. We will continue to monitor while inpatient and ensure improvemen Pt presents with two partial thickness pressure injuries R and L buttocks with surrounding Moisture Associated Skin Damage Partial thickness pressure injury R buttocks (L)2.2cm x (W)1cm. Base of wound is moist and viable with loose skin flap along edges. No odor or exudate. Periwound erythematous with denuded skin. Partial thickness pressure injury L buttocks. Base of wound is moist and viable. Edges are macerated. Non-blanching erythema with moisture denudement periwound.No exudate noted(L)2cm x (W)3cm.Scrotum erythematous with scattered satellite lesions at base of Scrotum. Both heels are boggy with non-blanching erythema. Pt denied tenderness when each heel individually palpated. Pt noted to be incontinent of loose B.M at start of visit. Pt also demonstrated ability to reposition self in bed but according to staff on unit pt is non- compliant and lacks motivation. PT informed of pressure injuries R and L buttocks , erythematous Scrotum and risks for further Skin decline. Pt educated on comorbidities that can contribute to wounds declining. Instructed pt to call for asst with toileting and encouraged to frequently reposition ,at least hourly while in bed. Pt declined to respond to verbal instructions. Spouse visited and updated on skin breakdown . Spouse also educated of risks for further skin breakdown if pt continues to be non-compliant with repositioning and toileting. I had a long discussion at bedside today 06/30/2019 with the patient and his . I explained to patient the above findings again and we reviewed the decubitus formation and goals and plans of care for prevention as well as improvement. I have asked patient to help mobilize himself and he was able to turn to his left side following to the right side. Given his size it does take a little bit of effort but it is possible and he is able to do it on his own. I explained to patient how important it is to continue current side specially as he can do it on its own. Patient states he just wants to relax and be comfortable on his back. I explained to them how the above findings of formed and how they may worsen if he continues to do so. Patient is clearly competent and expresses understanding. I explained the patient that it would be very important for him to continue with the plan of care that we have discussed. Patient states that it should be someone at all times to help him with these things and explained to patient that nursing staff and myself are willing and helping as much as necessary but he is capable and we strongly recommend that since he has ability it would be strongly recommended for him to offload pressure as much as possible. Tx.Plan: Apply Moisture Barrier Paste to R and L buttocks. Cover with Optifoam drsg. Change every 3 days and prn. Apply Moisture Barrier Paste to Scrotum with each incontinence care. Encourage to reposition self at least hourly while in bed. Apply Cavilon Skin Barrier to each heels. Cover each heel with OPtifoam drsg. Change every 7 days and prn. Off-load heels with Pillow. (2) Incontinence associated dermatitis (3) Left upper quadrant abdominal mass Assessment & Plan: Telemetry pancreatic mass cystic large with infiltration around it worsening on recent CT. Discussed with GI and agree will need EUS but given elevated troponins and current cardiac status will await clearance and improvement prior to proceeding with EUS. The myocardial perfusion scan demonstrates large perfusion defect involving the inferior wall and apex consistent with a myocardial infarct. This extends into the inferolateral segment. IMPRESSION: Inferior and inferolateral wall infarct including the apex. No definite evidence of myocardial ischemia. Note: The study was limited because of difficulty with gating due to the patient 's irregular heart rhythm. LVEF also could not be calculated. (4) Acute pancreatitis Assessment & Plan: Lungs: Small posterior basilar pleural effusions are demonstrated. Consolidation versus atelectasis involving the lung bases bilaterally. Similar appearance on the prior occasion.. Liver: Unremarkable Gallbladder/biliary system: Gallbladder is absent. No biliary ductal dilatation seen.. Spleen: Unremarkable Pancreas: Pancreas is atrophic. Once again there is a large approximately 10 cm well-circumscribed cystic mass in the left upper quadrant associated with the tail the pancreas. This has been previously described and was seen on the last 2 CT examinations. This cyst is questionably slightly smaller. There is however moderately increased soft tissue stranding in the area surrounding the cyst anteriorly indicative of inflammation. In addition part of the splenic flexure which abuts the cyst and traverses the area of inflammation shows focal dilatation likely a localized inflammatory response or localized ileus. The degree of inflammation has significantly increased and is worse than both the prior occasions on 06/20/2019 or on 06/15/2019. In addition the degree of anasarca has increased. There is a small amount of free fluid within the abdomen which has also increased slightly since the last study. Kidneys/Bladder: No definite stone or hydronephrosis are identified. There is a probable right renal cyst again noted. The urinary bladder is nondistended. Rivero catheter in good position. Adrenal glands: Unremarkable Bowel: Unremarkable. Aorta/IVC: Aortoiliac calcifications are noted consistent with atherosclerotic disease. Peritoneum: There is mild free fluid present within the peritoneal cavity.. Bones: There is narrowing of intervertebral discs and accompanying endplate osteophyte formation. Hypertrophied facet joints also demonstrated. Generalized osteopenia noted. Moderate osteoarthritis of both hips demonstrated. IMPRESSION: Moderate increased inflammation surrounding a 10 cm cystic mass in the left upper quadrant. The cystic mass may be slightly smaller than on the previous CT examinations performed 06/20/2019 and 06/15/2019. 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 Cystic neoplasm is not excluded. Persistent small bilateral pleural effusions and underlying consolidation/atelectasis. Trace ascites. Worsening anasarca. Status post cholecystectomy. Arterial vascular disease. Benitez Sheppard Jul 03, 2019 15:45
[2019-07-03 16:00] VITALS: BP 149/72
--- NOTE | 2019-07-03 16:41 | NUR ---
NURSE NOTES:WOUND CARE NOTES:Partial thickness pressure injuries R and L buttocks. Erythema with shearing Scrotum. Partial thickness pressure injury L buttocks. Base of wound is moist and viable . Edges adherent to base of wound . Non-blanching erythema periwound.(L)0.5cm x (W)2.5cm. Partial thickness pressure injury L buttocks. Base of wound is moist and viable. Edges adherent to base of wound. Non-blanching erythema periwound. Pt lacks motivation participating rehabilitation. Pt continues to be resistive in complying with repositioning self in bed despite being educated of risks vs benefits. Pt was incontinent of bowel during wound care and perineal care provided. Reinforced to pt risks for further skin decline from prolonged exposure to faeces on skin. Pt declined to comment to staff's advice. As staff was preparing to exit room pt called staff to bedside and stated he just had B.M.Perineal care provided. Wound Tx continued as ordered . Will continue to educate and reinforce repositioning.
[2019-07-03] MEDS: Vancomycin 1.5gm/NS Premix IVPB SCH (17:00)
--- NOTE | 2019-07-03 18:08 | Nephrology Progress Note ---
Assessment/Plan Plan #acute kidney injury - on baseline CKD- Fena 0.4% suggestive of pre-renal aztemia- however UA with sediments and RBC concerning for developing ATN- patient with baseline diabetic nephropathy -Cr uptrended today #sepsis #acute pancreatitis- improved # Hypokalemia, hypopmagnesemia - repleted #lactic acidosis- improved #HTN- stable #DM- controlled #NSTEMI #hypernatremia - improved #eliana on CKD - baseline Cr in mid to high 1s- now worsening in the setting of sepsis and possibly vanco induced #metabolic acidosis - due to renal insufficiency - monitor Cr- stable - dc sodium bicarb 650mg TID - aldactone 12.5mg daily - lisinopril 10mg daily #sepsis - antibiotics per ID- zosyn and zyvox, avoid nephrotoxic antibiotics - avoid supratherapeutic vanco level - monitor WBC #troponemia - heparin on hold for thrombocytopenia - HIT? - cardiology eval - stress test neg - aldactone 12.5mg daily - lisinopril 10mg daily #HTN - aldactone 12.5mg daily - lisinopril 10mg daily -increase amldipine to 10mg daily - metop 25mg BID #DM - hold metformin - ISS Subjective Subjective Stress test neg Breathing stable today Cr 1.3 lisinopril added aladactone added on zosyn and zyvox BP stable Objective Objective Last 24 Hour Vital Signs Date Time Temp Pulse Resp B/P (MAP) Pulse Ox O2 Delivery O2 Flow Rate FiO2 07/03/19 16:00 98.1 83 22 149/72 (97) 100 07/03/19 15:47 Nasal Cannula 1.0 07/03/19 12:00 97.9 59 21 152/75 (100) 94 07/03/19 09:58 156/73 07/03/19 09:58 88 156/73 07/03/19 09:55 88 156/73 07/03/19 09:00 Nasal Cannula 1.0 07/03/19 08:00 98.3 88 23 156/73 (100) 94 07/03/19 07:35 68 20 98 Room Air 21 07/03/19 04:00 98.1 87 21 148/69 (95) 94 07/03/19 00:00 98.1 80 20 138/70 (92) 94 07/02/19 21:00 Nasal Cannula 1.0 07/02/19 20:20 87 140/68 07/02/19 20:00 97.5 87 21 140/68 (92) 94 07/02/19 19:45 95 Room Air 21 07/02/19 19:45 87 20 95 Room Air 21 Intake and Output 07/02/19 07/03/19 19:00 07:00 Intake Total 960 ml 850 ml Output Total 1300 ml Balance 960 ml -450 ml Intake Oral 960 ml 850 ml Output Urine Total 1300 ml # Bowel Movements 2 2 Laboratory Tests 07/03/19 05:35: White Blood Count 8.0, Red Blood Count 3.26L, Hemoglobin 9.3L, Hematocrit 27.9L , Mean Corpuscular Volume 86, Mean Corpuscular Hemoglobin 28.6, Mean Corpuscular Hemoglobin Concent 33.4, Red Cell Distribution Width 12.9, Platelet Count 148L, Mean Platelet Volume 7.9, Neutrophils (%) (Auto) 79.0H, Lymphocytes (%) (Auto) 9.5L, Monocytes (%) (Auto) 8.3, Eosinophils (%) (Auto) 1.3, Basophils (%) (Auto) 1.9, Sodium Level 141, Potassium Level 3.3L, Chloride Level 108H, Carbon Dioxide Level 22, Anion Gap 11, Blood Urea Nitrogen 20H, Creatinine 1.4H, Estimat Glomerular Filtration Rate 49.7, Glucose Level 123H, Calcium Level 7.9L Height (Feet): 5 Height (Inches): 7.00 Weight (Pounds): 248 Objective General Appearance: Alert - no distress Lines, tubes and drains: peripheral HEENT: normocephalic, atraumatic Neck: non-tender, normal alignment Respiratory/Chest: chest wall non-tender, lungs clear, normal breath sounds Cardiovascular/Chest: normal rate, regular rhythm Abdomen: normal bowel sounds, non tender, soft Extremities: non-tender, normal inspection Skin Exam: normal pigmentation, no diaphoresis Gerson Salgado M.D. Jul 03, 2019 18:08
--- NOTE | 2019-07-03 19:22 | NUR ---
HAND-OFF: Report given to Cam SCHULER. Endorsed that patient is to go down for procedure in morning and to NPO at midnight.
--- NOTE | 2019-07-03 19:30 | NUR ---
NURSE NOTES: Received patient in no apparent distress. A&OX4. IV site patent and intact. Rivero draining well by gravity, mary urine noted. Remind NPO midnight, patient fully understood. Bed in lowest position. Call light within reach. Will continue to monitor.
[2019-07-03 20:00] VITALS: BP 145/62
--- NOTE | 2019-07-03 21:21 | Cardiology Progress Note ---
Assessment/Plan Status: stable Assessment/Plan Assessment/Plan 73 year old man with HTN, IDDM, ? history of CVA who presented to [facility] ED with nausea,vomiting and hypertensive urgency and SOB -Empiric ABX and IV fluids -> WBC now normal, no fevers, cultures negative -BiPAP prn, continue pulmonary rehab/toilet/CPT, serial chest x ray -V/Q and LE US negative for thrombus, CXR with cardiomegaly and interstitial prominence -Echocardiogram with LVEF 40% and PA pressure 55 mmHG and elevated right atrial pressures. -Continue diuresis to lower filling pressures, recommend repeating limited Echocardiogram once dry weight achieved to re-evaluate pulmonary/filling pressures - ok to do as outpatient -Continue low dose metoprolol 25 mg BID for systolic dysfunction and titrate -Continue ACEi/ARB for afterload reduction -DASH diet -Stress test negative -ok to d/c from cardiac standpoint Subjective Cardiovascular: Reports: no symptoms Respiratory: Reports: no symptoms Gastrointestinal/Abdominal: Reports: no symptoms Genitourinary: Reports: no symptoms Subjective Patient stable on floors, no acute events, vitals stable, Stress test negative for ischemia, tolerating cardiac meds Objective Last 24 Hour Vital Signs Date Time Temp Pulse Resp B/P (MAP) Pulse Ox O2 Delivery O2 Flow Rate FiO2 07/03/19 20:44 74 145/62 07/03/19 20:28 74 20 94 Room Air 21 07/03/19 20:00 98.8 77 20 145/62 (89) 94 07/03/19 16:00 98.1 83 22 149/72 (97) 100 07/03/19 15:47 Nasal Cannula 1.0 07/03/19 12:00 97.9 59 21 152/75 (100) 94 07/03/19 09:58 156/73 07/03/19 09:58 88 156/73 07/03/19 09:55 88 156/73 07/03/19 09:00 Nasal Cannula 1.0 07/03/19 08:00 98.3 88 23 156/73 (100) 94 07/03/19 07:35 68 20 98 Room Air 21 07/03/19 04:00 98.1 87 21 148/69 (95) 94 07/03/19 00:00 98.1 80 20 138/70 (92) 94 General Appearance: no apparent distress, alert EENT: PERRL/EOMI, normal ENT inspection, TMs normal, pharynx normal Neck: non-tender, normal alignment, supple, normal inspection, no JVD Rhythm: NSR Cardiovascular: normal peripheral pulses, normal rate, regular rhythm Respiratory/Chest: chest wall non-tender, lungs clear, normal breath sounds, no respiratory distress, no accessory muscle use Abdomen: normal bowel sounds, non tender, soft, no organomegaly, no mass Extremities: normal range of motion, non-tender, normal inspection, no calf tenderness, no swelling Neurologic: 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 technician assistant II-XII grossly normal, no motor/sensory deficits Intake and Output 07/02/19 07/03/19 19:00 07:00 Intake Total 960 ml 850 ml Output Total 1300 ml Balance 960 ml -450 ml Intake Oral 960 ml 850 ml Output Urine Total 1300 ml # Bowel Movements 2 2 Laboratory Tests Test 07/03/19 05:35 White Blood Count 8.0 K/UL (4.8-10.8) Red Blood Count 3.26 M/UL (4.70-6.10) L Hemoglobin 9.3 G/DL (14.2-18.0) L Hematocrit 27.9 % (42.0-52.0) L Mean Corpuscular Volume 86 FL (80-99) Mean Corpuscular Hemoglobin 28.6 PG (27.0-31.0) Mean Corpuscular Hemoglobin Concent 33.4 G/DL (32.0-36.0) Red Cell Distribution Width 12.9 % (11.6-14.8) Platelet Count 148 K/UL (150-450) L Mean Platelet Volume 7.9 FL (6.5-10.1) Neutrophils (%) (Auto) 79.0 % (45.0-75.0) H Lymphocytes (%) (Auto) 9.5 % (20.0-45.0) L Monocytes (%) (Auto) 8.3 % (1.0-10.0) Eosinophils (%) (Auto) 1.3 % (0.0-3.0) Basophils (%) (Auto) 1.9 % (0.0-2.0) Sodium Level 141 MMOL/L (136-145) Potassium Level 3.3 MMOL/L (3.5-5.1) L Chloride Level 108 MMOL/L (98-107) H Carbon Dioxide Level 22 MMOL/L (21-32) Anion Gap 11 mmol/L (5-15) Blood Urea Nitrogen 20 mg/dL (7-18) H Creatinine 1.4 MG/DL (0.55-1.30) H Estimat Glomerular Filtration Rate 49.7 mL/min (>60) Glucose Level 123 MG/DL (74-106) H Calcium Level 7.9 MG/DL (8.5-10.1) L Paul Reed MD Jul 03, 2019 21:21
[2019-07-04] VITALS (10 sets, daily range): BP systolic 93–159; BP diastolic 46–72
[2019-07-04] MEDS: NovoLOG Insulin Flexpen SUBQ SCH ×4 (06:27→21:07)
[2019-07-04 06:41] LABS: ANION GAP 10 mmol/L (5-15); BLOOD UREA NITROGEN 23 mg/dL (7-18); CALCIUM 7.8 MG/DL (8.5-10.1); CARBON DIOXIDE 25 MMOL/L (21-32); CHLORIDE 108 MMOL/L (98-107); CREATININE 1.5 MG/DL (0.55-1.30); POTASSIUM 3.5 MMOL/L (3.5-5.1); SODIUM 143 MMOL/L (136-145)
[2019-07-04 06:58] LABS: BASOPHILS % (AUTO) 2.9 % (0.0-2.0); EOSINOPHILS % (AUTO) 1.9 % (0.0-3.0); HEMATOCRIT 28.5 % (42.0-52.0); HEMOGLOBIN 9.6 G/DL (14.2-18.0); MEAN CORPUSCULAR VOLUME 86 FL (80-99); MONOCYTES % (AUTO) 8.3 % (1.0-10.0); NEUTROPHILS % (AUTO) 77.9 % (45.0-75.0); PLATELET COUNT 136 K/UL (150-450); RED BLOOD COUNT 3.33 M/UL (4.70-6.10); RED CELL DISTRIBUTION WIDTH 12.8 % (11.6-14.8); WHITE BLOOD COUNT 7.6 K/UL (4.8-10.8)
--- NOTE | 2019-07-04 07:19 | NUR ---
NURSE NOTES: Report received from Cam SCHULER. Patient is awake and alert x 3. Patient not in respiratory distress at this time. Patient has no complaints at this time. Patient noted to have a Rivero catheter in place and patent. Draining clear yellow urine. 20 jamee IV note in left hand. Was endorsed that patient is to be going down for a procedure at 0900. Consent obtained and in chart. Pre operative checklist done by Cam SCHULER. Patient does not have any questions at this time. Bed locked, in lowest position, and alarmed. Call light in reach. Will continue to follow plan of care.
--- NOTE | 2019-07-04 07:19 | NUR ---
HAND-OFF: Report given to Murray SCHULER.
--- NOTE | 2019-07-04 08:01 | Hematology/Onc Progress Note ---
Assessment/Plan Assessment/Plan Assessment and recs: # Leukocytosis with hx of infection, hx klebsiella bacteremia, sepsis, leukocytosis, infected pancreatic pseudocyst, ? aspiration pna/HCAP vs atx, arf , CT abdomen and pelvis noted -> ct a/p reviewed --> wbc 15-->30-->24-->13.4-->10-->9.3-->7.6 --> on vanc/zosyn-->zosyn-->vanc # 10.7 cm unilocular cystic structure in the left upper quadrant retroperitoneal , corresponding to findings reported on recent CT scan. Most likely represents a pancreatic pseudocyst. --> continue to monitor as per gi --> repeat us or ct in short order, weeks to months to re-eval --> repeat ct showed mild enlargement of cyst/mass, will need further repeat imaging --> may need indium scan # Thrombocytopenia - potential causes multifactorial, in this case due to sepsis , less likely due to heparin --> Hep panel and HIV are negative --> US abd to evaluate for cirrhosis and hsm ordered and none noted --> Peripheral smear ordered to evaluate for blasts /schistocytes --> abx and other meds have been reviewed --> ok for ppx if plt >50k w/ either heparin or lovenox --> Transfuse if Plt < 20k and fever, or if Plt < 10k without fever --> plt trend 41-->49k-->63k-->110-->208-->148-->136 # DM, ? history of CVA who [place] [facility] [place],vomiting. --> a1c goal <8, accuchecks qac/qhs # Septic shock, POA, possible biliary source --> cont ICU level of care --> cont IV hydration --> on abx, as per pulm/cc # Acute hypoxic resp failure without hypercarbia --> Intermittent BiPAP --> continue inhaled bronchodilators # NSTEMI, peak trop of 2, likely due to demand ischemia --> Stop heparin due to thrombocytopenia --> duplex lower legs is neg --> HIT neg --> per cards # Acute kidney injury on CKD, possible ATN --> Nephrology following # Acute pancreatitis --> hydration # HTN --> cont to hold BP meds # DM type 2 --> ISS # Dvt ppx scds Appreciate consultation and sydney Rn Subjective Allergies: Coded Allergies: No Known Allergies (Unverified , 06/02/19) Subjective 06/20: awake and alert, no overnight events, v mask 06/22: plts remain low, in the 40s, off anticaog, sydney rn, pending labs 06/23: is on broad spectrum abx, fluncon, ctx, flagyl, vanc, no f/c 06/24: on tele, no overnight events, wbc at 29.8, plt count improved 06/25: ct a/p is still pending given elev wbc, off pressors in tele 06/26: wbc continues to be elev, ct a/p reviewed, potentially smaller pseudocyst, may need indium scan 06/28: s/p wbc scan, on tele, no acute distress, nc 06/29: no bleeding or chills, labs re noted, no night sweats, cbc and bmp ordered 06/30: no events, less diarrhea with iimmdium given, c. diff is neg, labs ordered 07/01: sleeping comfortably, no events, wbc has improved, cbc pending 07/02: alert, no overnight events, bp on high end this am, no resp distress 07/03: no acute events, h/h stable, inr 1, on room air Objective Objective Current Medications Medications (Trade) Dose Ordered Sig/Arley Route PRN Reason Start Time Stop Time Status Last Admin Dose Admin Acetaminophen (Tylenol) 650 mg Q4H PRN ORAL Mild Pain (Pain Scale 1-3) 07/02/19 19:00 07/15/19 18:59 Albumin Human 50 ml @ 50 mls/hr DAILYPRN PRN IV For hypotension 07/02/19 19:00 08/01/19 18:59 Albuterol/ Ipratropium (Albuterol/ Ipratropium) 3 ml Q4H PRN HHN Shortness of Breath 07/02/19 20:45 07/04/19 16:42 Amlodipine Besylate (Norvasc) 10 mg DAILY ORAL 07/03/19 09:00 07/24/19 08:59 07/03/19 09:58 Amylase/Lipase/ Protease (Zenpep) 3 ea THREE TIMES A DAY ORAL 07/03/19 09:00 07/26/19 13:59 07/03/19 17:50 Aspirin (ASA) 81 mg DAILY ORAL 07/03/19 09:00 07/20/19 08:59 07/03/19 09:56 Bisacodyl (Dulcolax) 10 mg DAILYPRN PRN RECTAL Constipation 07/02/19 19:00 07/24/19 18:59 Dextrose (Dextrose 50%) 25 ml Q30M PRN IV Hypoglycemia 07/02/19 19:15 07/16/19 18:05 Dextrose (Dextrose 50%) 50 ml Q30M PRN IV Hypoglycemia 07/02/19 19:15 07/16/19 18:05 Insulin Aspart (NovoLOG) AC+HS SUBQ 07/02/19 21:00 07/20/19 17:59 07/03/19 20:45 Lisinopril (ZestriL) 10 mg DAILY ORAL 07/03/19 09:00 08/02/19 08:59 07/03/19 09:58 Loperamide HCl (Imodium) 2 mg Q4H PRN ORAL Diarrhea 07/02/19 19:00 08/01/19 18:59 Magnesium Hydroxide (Mom) 30 ml HSPRN PRN ORAL Constipation 07/02/19 21:00 07/15/19 20:59 Metoprolol Tartrate (Lopressor) 25 mg Q12HR ORAL 07/02/19 21:00 07/20/19 08:59 07/03/19 20:44 Ondansetron HCl (Zofran) 4 mg Q6H PRN IVP Nausea & Vomiting 07/02/19 19:00 07/24/19 18:59 Pantoprazole (Protonix) 40 mg DAILY ORAL 07/03/19 09:00 07/28/19 08:59 07/03/19 09:56 Spironolactone (Aldactone) 12.5 mg DAILY ORAL 07/03/19 09:00 08/01/19 08:59 07/03/19 09:57 Vancomycin HCl (Vanco rx to dose) 1 ea DAILY PRN MISC VANCOMYCIN 07/03/19 16:00 08/02/19 15:59 Vancomycin/Sodium Chloride 275 ml @ 137.5 mls/ hr Q24H IVPB 07/03/19 17:00 07/08/19 16:59 07/03/19 17:00 Last 24 Hour Vital Signs Date Time Temp Pulse Resp B/P (MAP) Pulse Ox O2 Delivery O2 Flow Rate FiO2 07/04/19 07:29 82 18 94 Room Air 21 07/04/19 04:00 98.0 87 18 145/66 (92) 94 07/04/19 00:00 98.2 80 20 149/69 (95) 97 07/03/19 21:00 Room Air 07/03/19 20:44 74 145/62 07/03/19 20:28 74 20 94 Room Air 21 07/03/19 20:00 98.8 77 20 145/62 (89) 94 07/03/19 16:00 98.1 83 22 149/72 (97) 100 07/03/19 15:47 Nasal Cannula 1.0 07/03/19 12:00 97.9 59 21 152/75 (100) 94 07/03/19 09:58 156/73 07/03/19 09:58 88 156/73 07/03/19 09:55 88 156/73 07/03/19 09:00 Nasal Cannula 1.0 07/03/19 08:00 98.3 88 23 156/73 (100) 94 07/03/19 07:35 68 20 98 Room Air 21 07/03/19 04:00 98.1 87 21 148/69 (95) 94 07/03/19 00:00 98.1 80 20 138/70 (92) 94 07/02/19 21:00 Nasal Cannula 1.0 07/02/19 20:20 87 140/68 07/02/19 20:00 97.5 87 21 140/68 (92) 94 07/02/19 19:45 95 Room Air 21 07/02/19 19:45 87 20 95 Room Air 21 07/02/19 16:00 81 07/02/19 16:00 97.7 81 20 154/68 (96) 97 07/02/19 12:00 83 07/02/19 12:00 97.9 82 21 150/63 (92) 97 07/02/19 09:08 81 165/76 07/02/19 09:07 81 165/76 07/02/19 09:00 Nasal Cannula 1.0 07/02/19 08:00 84 07/02/19 08:00 97.5 81 21 165/76 (105) 97 Intake and Output 07/03/19 07/04/19 19:00 07:00 Intake Total 1292.5 ml 480 ml Output Total 2000 ml 1400 ml Balance -707.5 ml -920 ml Intake Oral 800 ml 480 ml IV Total 492.5 ml Output Urine Total 2000 ml 1400 ml # Bowel Movements 5 Labs Test 07/02/19 05:39 07/03/19 05:35 07/04/19 05:45 White Blood Count 9.6 K/UL (4.8-10.8) 8.0 K/UL (4.8-10.8) 7.6 K/UL (4.8-10.8) Red Blood Count 3.46 M/UL (4.70-6.10) 3.26 M/UL (4.70-6.10) 3.33 M/UL (4.70-6.10) Hemoglobin 9.8 G/DL (14.2-18.0) 9.3 G/DL (14.2-18.0) 9.6 G/DL (14.2-18.0) Hematocrit 29.7 % (42.0-52.0) 27.9 % (42.0-52.0) 28.5 % (42.0-52.0) Mean Corpuscular Volume 86 FL (80-99) 86 FL (80-99) 86 FL (80-99) Mean Corpuscular Hemoglobin 28.2 PG (27.0-31.0) 28.6 PG (27.0-31.0) 28.8 PG (27.0-31.0) Mean Corpuscular Hemoglobin Concent 32.9 G/DL (32.0-36.0) 33.4 G/DL (32.0-36.0) 33.7 G/DL (32.0-36.0) Red Cell Distribution Width 12.9 % (11.6-14.8) 12.9 % (11.6-14.8) 12.8 % (11.6-14.8) Platelet Count 163 K/UL (150-450) 148 K/UL (150-450) 136 K/UL (150-450) Mean Platelet Volume 8.1 FL (6.5-10.1) 7.9 FL (6.5-10.1) 8.4 FL (6.5-10.1) Neutrophils (%) (Auto) 79.9 % (45.0-75.0) 79.0 % (45.0-75.0) 77.9 % (45.0-75.0) Lymphocytes (%) (Auto) 8.9 % (20.0-45.0) 9.5 % (20.0-45.0) 9.0 % (20.0-45.0) Monocytes (%) (Auto) 7.8 % (1.0-10.0) 8.3 % (1.0-10.0) 8.3 % (1.0-10.0) Eosinophils (%) (Auto) 1.5 % (0.0-3.0) 1.3 % (0.0-3.0) 1.9 % (0.0-3.0) Basophils (%) (Auto) 1.8 % (0.0-2.0) 1.9 % (0.0-2.0) 2.9 % (0.0-2.0) Sodium Level 142 MMOL/L (136-145) 141 MMOL/L (136-145) 143 MMOL/L (136-145) Potassium Level 3.5 MMOL/L (3.5-5.1) 3.3 MMOL/L (3.5-5.1) 3.5 MMOL/L (3.5-5.1) Chloride Level 109 MMOL/L (98-107) 108 MMOL/L (98-107) 108 MMOL/L (98-107) Carbon Dioxide Level 24 MMOL/L (21-32) 22 MMOL/L (21-32) 25 MMOL/L (21-32) Anion Gap 9 mmol/L (5-15) 11 mmol/L (5-15) 10 mmol/L (5-15) Blood Urea Nitrogen 20 mg/dL (7-18) 20 mg/dL (7-18) 23 mg/dL (7-18) Creatinine 1.3 MG/DL (0.55-1.30) 1.4 MG/DL (0.55-1.30) 1.5 MG/DL (0.55-1.30) Estimat Glomerular Filtration Rate 54.1 mL/min (>60) 49.7 mL/min (>60) 45.9 mL/min (>60) Glucose Level 138 MG/DL (74-106) 123 MG/DL (74-106) 125 MG/DL (74-106) Calcium Level 8.0 MG/DL (8.5-10.1) 7.9 MG/DL (8.5-10.1) 7.8 MG/DL (8.5-10.1) Amylase Level 120 U/L (25-115) Lipase 305 U/L (73-393) Prothrombin Time 10.7 SEC (9.30-11.50) Prothromb Time International Ratio 1.0 (0.9-1.1) Activated Partial Thromboplast Time 26 SEC (23-33) Height (Feet): 5 Height (Inches): 5.00 Weight (Pounds): 248 Objective PE General Appearance: no apparent distress, alert HEENT: atraumatic, anicteric Neck: normal alignment, supple Respiratory/Chest: lungs clear, normal breath sounds, no respiratory distress Cardiovascular/Chest: normal rate, regular rhythm Abdomen: non tender, soft, no organomegaly Extremities: non-tender, normal inspection Skin Exam: warm/dry, cyanotic Neurologic: alert Gu: ++ Kana Goyal MD Jul 04, 2019 08:01
[2019-07-04] MEDS: Spironolactone 25mg tab ORAL SCH (08:59)
[2019-07-04] MEDS: Lisinopril 10mg tab ORAL SCH (08:59)
[2019-07-04] MEDS: Pancrelipase Dr Cap ORAL SCH ×3 (09:00→17:35)
[2019-07-04] MEDS: Aspirin Baby 81mg ORAL SCH (09:00)
--- NOTE | 2019-07-04 10:19 | Pre-Procedure Note/Attestation ---
Pre-Procedure Note/Attestation Complete Prior to Procedure Planned Procedure: not applicable Procedure Narrative: egd/EUS Indications for Procedure Pre-Operative Diagnosis: panc cyst Attestation I attest that I discussed the nature of the procedure; its benefits; risks and complications; and alternatives (and the risks and benefits of such alternatives ), prior to the procedure, with the patient (or the patient's legal medical billing representative). I attest that, if there was a reasonable possibility of needing a blood transfusion, the patient (or the patient's legal medical billing representative) was given the [facility] standardized written summary, pursuant to the [place] Blood Safety Act ([place] Health and Safety Code # 1645, as amended). I attest that I re-evaluated the patient just prior to the surgery and that there has been no change in the patient's H&P, except as documented below: Peyman Akbar MD Jul 04, 2019 10:19
--- NOTE | 2019-07-04 10:20 | NUR ---
NURSE NOTES: Transport arrived to bring patient to EGD. Patient NPO since midnight. IV access in left hand 20 jamee. Flushes, patent, and in tact. Consent obtained. Pre operative checklist done. Chart given to transporter. Patient walked to stretcher. Patient safely on stretcher. Patient awake and alert x 4 and in stable condition.
--- NOTE | 2019-07-04 10:26 | Anethesia Preoperative Eval ---
Anesthesia Pre-op PMH/ROS General Date of Evaluation: Jul 04, 2019 Time of Evaluation: 10:25 Anesthesiologist: Audra Pelletier CRNA ASA Score: ASA 3 Mallampati Score Class I : Soft palate, uvula, fauces, pillars visible Class II: Soft palate, uvula, fauces visible Class III: Soft palate, base of uvula visible Class IV: Only hard plate visible Mallampati Classification: Class III Surgeon: Raffy Diagnosis: GERD, N/V Surgical Procedure: EGD, EUS Anesthesia History: none Social History: smoking Family History: no anesthesia problems Allergies: Coded Allergies: No Known Allergies (Unverified , 06/02/19) Medications: see eMAR Patient NPO?: Yes NPO Date: Jul 04, 2019 NPO Time: 00:00 Past Medical History Cardiovascular: Reports: HTN, CAD, other - cardiomegaly; Denies: NV, valve dz, arrhythmia Pulmonary: Reports: MARCY; Denies: asthma, COPD, other Gastrointestinal/Genitourinary: Reports: GERD Neurologic/Psychiatric: Reports: CVA, other - Head injury May 2019, CT; C- spine (-); Denies: dementia, depression/anxiety, TIA Endocrine: Reports: DM; Denies: hypothyroidism, steroids, other HEENT: Denies: cataract (L), cataract (R), glaucoma, AKUTAN (L), AKUTAN (R), other Hematology/Immune: Denies: anemia, DVT, bleeding disorder, other Musculoskeletal/Integumentary: Denies: OA, RA, DJD, DDD, edema, other Other: obesity - Morbid obesity BMI 40 PMH Narrative: as noted above PSxH Narrative: see H & P Anesthesia Pre-op Phys. Exam Physician Exam Last Vital Signs Date Time Temp Pulse Resp B/P (MAP) Pulse Ox O2 Delivery O2 Flow Rate FiO2 07/04/19 09:01 85 159/71 07/04/19 07:29 18 94 Room Air 21 07/04/19 04:00 98.0 07/03/19 15:47 1.0 Constitutional: NAD, other - morbidly obese Neurologic: other - alert & oriented x 3 Cardiovascular: RRR Respiratory: CTA Gastrointestinal: S/NT/ND Airway Exam Mallampati Score: Class III MO: full Neck: short thick neck, large tongue TMD: > 3 FB ROM: full Teeth: intact Dentures: no upper, no lower Anesthesia Pre-op A/P Labs Hematology Test 07/04/19 05:45 White Blood Count 7.6 K/UL (4.8-10.8) Red Blood Count 3.33 M/UL (4.70-6.10) L Hemoglobin 9.6 G/DL (14.2-18.0) L Hematocrit 28.5 % (42.0-52.0) L Mean Corpuscular Volume 86 FL (80-99) Mean Corpuscular Hemoglobin 28.8 PG (27.0-31.0) Mean Corpuscular Hemoglobin Concent 33.7 G/DL (32.0-36.0) Red Cell Distribution Width 12.8 % (11.6-14.8) Platelet Count 136 K/UL (150-450) L Mean Platelet Volume 8.4 FL (6.5-10.1) Neutrophils (%) (Auto) 77.9 % (45.0-75.0) H Lymphocytes (%) (Auto) 9.0 % (20.0-45.0) L Monocytes (%) (Auto) 8.3 % (1.0-10.0) Eosinophils (%) (Auto) 1.9 % (0.0-3.0) Basophils (%) (Auto) 2.9 % (0.0-2.0) H Coagulation Test 07/04/19 05:45 Prothrombin Time 10.7 SEC (9.30-11.50) Prothromb Time International Ratio 1.0 (0.9-1.1) Activated Partial Thromboplast Time 26 SEC (23-33) Chemistry Test 07/04/19 05:45 Sodium Level 143 MMOL/L (136-145) Potassium Level 3.5 MMOL/L (3.5-5.1) Chloride Level 108 MMOL/L (98-107) H Carbon Dioxide Level 25 MMOL/L (21-32) Anion Gap 10 mmol/L (5-15) Blood Urea Nitrogen 23 mg/dL (7-18) H Creatinine 1.5 MG/DL (0.55-1.30) H Estimat Glomerular Filtration Rate 45.9 mL/min (>60) Glucose Level 125 MG/DL (74-106) H Calcium Level 7.8 MG/DL (8.5-10.1) L Studies Pre-op Studies: EKG, CXR - cardiomegaly, interstitial prominence, echo - EF 40% ; elevated PAP 55 mmHG Risk Assessment & Plan Assessment: ASA 3, ok to proceed Plan: MAC Status Change Before Surgery: No Pre-Antibiotics Given Within 1 Hr of Incision: Audra Hernandez CRNA Jul 04, 2019 10:26
[2019-07-04] MEDS ORDERED: Midazolam 2mg/2ml Inj ONE (10:28)
[2019-07-04] MEDS ORDERED: Ketamine 500mg/10ml vial ONE (10:29)
[2019-07-04] MEDS ORDERED: Lidocaine 1% MPF 10mg/ml 5ml ONE (10:30)
[2019-07-04] MEDS ORDERED: Propofol 200mg/20ml IV ONE (10:30)
[2019-07-04] MEDS ORDERED: NS 500ML IVPB ONE (10:30)
--- NOTE | 2019-07-04 11:00 | Endoscopy Procedure Note ---
Endoscopy Procedure Note General Indication for Procedure: panc cyst Procedures Performed: EGD, other - EUS Operative Findings/Diagnosis: same Specimen: yes Pt Tolerated Procedure Well: Yes Estimated Blood Loss: none Anesthesia Anesthesiologist: caprice Anesthesia: MAC Inserted Devices Implant(s) used?: No GI Core Measures 50 yrs or older w/o bx or poly: Not Applicable 10yrs. F/U recommended: Not Applicable Peyman Akbar MD Jul 04, 2019 11:00
--- NOTE | 2019-07-04 11:01 | Nephrology Progress Note ---
Assessment/Plan Plan #acute kidney injury - on baseline CKD- Fena 0.4% suggestive of pre-renal aztemia- however UA with sediments and RBC concerning for developing ATN- patient with baseline diabetic nephropathy -Cr uptrended today #sepsis #acute pancreatitis- improved # Hypokalemia, hypopmagnesemia - repleted #lactic acidosis- improved #HTN- stable #DM- controlled #NSTEMI #hypernatremia - improved #eliana on CKD - baseline Cr in mid to high 1s- now worsening in the setting of sepsis and possibly vanco induced #metabolic acidosis - due to renal insufficiency - monitor Cr- stable - dc sodium bicarb 650mg TID - aldactone 12.5mg daily - lisinopril 20mg daily #sepsis - antibiotics per ID- zosyn and zyvox, avoid nephrotoxic antibiotics - avoid supratherapeutic vanco level - monitor WBC - GI eval- possible EUS #troponemia - heparin on hold for thrombocytopenia - HIT? - cardiology eval - stress test neg - aldactone 12.5mg daily - lisinopril 10mg daily #HTN - aldactone 12.5mg daily - lisinopril 20mg daily -increase amldipine to 10mg daily - metop 25mg BID #DM - hold metformin - ISS Subjective Subjective Breathing stable today Cr 1.5 on zosyn and zyvox Stress test neg BP slightly up Objective Objective Last 24 Hour Vital Signs Date Time Temp Pulse Resp B/P (MAP) Pulse Ox O2 Delivery O2 Flow Rate FiO2 07/04/19 09:01 85 159/71 07/04/19 09:00 85 159/71 07/04/19 09:00 Room Air 07/04/19 08:59 159/71 07/04/19 08:00 97.2 85 20 159/71 (100) 95 07/04/19 07:29 82 18 94 Room Air 21 07/04/19 04:00 98.0 87 18 145/66 (92) 94 07/04/19 00:00 98.2 80 20 149/69 (95) 97 07/03/19 21:00 Room Air 07/03/19 20:44 74 145/62 07/03/19 20:28 74 20 94 Room Air 21 07/03/19 20:00 98.8 77 20 145/62 (89) 94 07/03/19 16:00 98.1 83 22 149/72 (97) 100 07/03/19 15:47 Nasal Cannula 1.0 07/03/19 12:00 97.9 59 21 152/75 (100) 94 Intake and Output 07/03/19 07/04/19 19:00 07:00 Intake Total 1292.5 ml 480 ml Output Total 2000 ml 1400 ml Balance -707.5 ml -920 ml Intake Oral 800 ml 480 ml IV Total 492.5 ml Output Urine Total 2000 ml 1400 ml # Bowel Movements 5 Laboratory Tests 07/04/19 05:45: White Blood Count 7.6, Red Blood Count 3.33L, Hemoglobin 9.6L, Hematocrit 28.5L , Mean Corpuscular Volume 86, Mean Corpuscular Hemoglobin 28.8, Mean Corpuscular Hemoglobin Concent 33.7, Red Cell Distribution Width 12.8, Platelet Count 136L, Mean Platelet Volume 8.4, Neutrophils (%) (Auto) 77.9H, Lymphocytes (%) (Auto) 9.0L, Monocytes (%) (Auto) 8.3, Eosinophils (%) (Auto) 1.9, Basophils (%) (Auto) 2.9H, Prothrombin Time 10.7, Prothromb Time International Ratio 1.0, Activated Partial Thromboplast Time 26, Sodium Level 143, Potassium Level 3.5, Chloride Level 108H, Carbon Dioxide Level 25, Anion Gap 10, Blood Urea Nitrogen 23H, Creatinine 1.5H, Estimat Glomerular Filtration Rate 45.9, Glucose Level 125H, Calcium Level 7.8L Height (Feet): 5 Height (Inches): 5.00 Weight (Pounds): 248 Objective General Appearance: Alert - no distress Lines, tubes and drains: peripheral HEENT: normocephalic, atraumatic Neck: non-tender, normal alignment Respiratory/Chest: chest wall non-tender, lungs clear, normal breath sounds Cardiovascular/Chest: normal rate, regular rhythm Abdomen: normal bowel sounds, non tender, soft Extremities: non-tender, normal inspection Skin Exam: normal pigmentation, no diaphoresis Gerson Salgado M.D. Jul 04, 2019 11:01
--- NOTE | 2019-07-04 11:19 | Immediate Post-Op Evaluation ---
Immediate Post-Op Evalulation Immediate Post-Op Evalulation Procedure: EGD, EUS Date of Evaluation: Jul 04, 2019 Time of Evaluation: 11:14 IV Fluids: 0.9 NS 100 ml Blood Pressure Systolic: 115 Blood Pressure Diastolic: 60 Pulse Rate: 77 Respiratory Rate: 16 O2 Sat by Pulse Oximetry: 100 Temperature (Fahrenheit): 97.6 Pain Score (1-10): 0 Nausea: No Vomiting: No Complications none Patient Status: reacts, patent Hydration Status: adequate Given Within 1 Hr of Incision: Audra Hernandez CRNA Jul 04, 2019 11:19
--- NOTE | 2019-07-04 12:34 | Cardiology Progress Note ---
Assessment/Plan Status: stable Assessment/Plan Assessment/Plan 73 year old man with HTN, IDDM, ? history of CVA who presented to [facility] ED with nausea,vomiting and hypertensive urgency and SOB -Empiric ABX and IV fluids -> WBC now normal, no fevers, cultures negative -BiPAP prn, continue pulmonary rehab/toilet/CPT, serial chest x ray -V/Q and LE US negative for thrombus, CXR with cardiomegaly and interstitial prominence -Echocardiogram with LVEF 40% and PA pressure 55 mmHG and elevated right atrial pressures. -Continue diuresis to lower filling pressures, recommend repeating limited Echocardiogram once dry weight achieved to re-evaluate pulmonary/filling pressures - ok to do as outpatient -Continue low dose metoprolol 25 mg BID for systolic dysfunction and titrate -Continue ACEi/ARB for afterload reduction -DASH diet -Stress test negative -clear for EGD/EUS Subjective Cardiovascular: Reports: no symptoms Respiratory: Reports: no symptoms Gastrointestinal/Abdominal: Reports: no symptoms Genitourinary: Reports: no symptoms Subjective Patient stable on floors, no acute events, vitals stable, Stress test negative for ischemia, tolerating cardiac meds For EGD/US today Objective Last 24 Hour Vital Signs Date Time Temp Pulse Resp B/P (MAP) Pulse Ox O2 Delivery O2 Flow Rate FiO2 07/04/19 11:35 97.4 78 18 138/70 97 Room Air 07/04/19 11:25 76 18 129/66 100 Simple Mask 6 07/04/19 11:19 77 16 100 07/04/19 11:15 77 18 128/60 100 Simple Mask 6 07/04/19 11:10 78 18 115/60 100 Simple Mask 6 07/04/19 11:05 97.6 77 17 93/46 100 Simple Mask 6 07/04/19 09:01 85 159/71 07/04/19 09:00 85 159/71 07/04/19 09:00 Room Air 07/04/19 08:59 159/71 07/04/19 08:00 97.2 85 20 159/71 (100) 95 07/04/19 07:29 82 18 94 Room Air 21 07/04/19 04:00 98.0 87 18 145/66 (92) 94 07/04/19 00:00 98.2 80 20 149/69 (95) 97 07/03/19 21:00 Room Air 07/03/19 20:44 74 145/62 07/03/19 20:28 74 20 94 Room Air 21 07/03/19 20:00 98.8 77 20 145/62 (89) 94 07/03/19 16:00 98.1 83 22 149/72 (97) 100 07/03/19 15:47 Nasal Cannula 1.0 General Appearance: no apparent distress, alert EENT: PERRL/EOMI, normal ENT inspection, TMs normal, pharynx normal Neck: non-tender, normal alignment, supple, normal inspection, no JVD Rhythm: NSR Cardiovascular: normal peripheral pulses, normal rate, regular rhythm Respiratory/Chest: chest wall non-tender, lungs clear, normal breath sounds, no respiratory distress, no accessory muscle use Abdomen: normal bowel sounds, non tender, soft Extremities: normal range of motion, non-tender, normal inspection, no calf tenderness Neurologic: [employer] 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 [employer] II-XII grossly normal, no motor/sensory deficits Intake and Output 07/03/19 07/04/19 19:00 07:00 Intake Total 1292.5 ml 480 ml Output Total 2000 ml 1400 ml Balance -707.5 ml -920 ml Intake Oral 800 ml 480 ml IV Total 492.5 ml Output Urine Total 2000 ml 1400 ml # Bowel Movements 5 Laboratory Tests Test 07/04/19 05:45 White Blood Count 7.6 K/UL (4.8-10.8) Red Blood Count 3.33 M/UL (4.70-6.10) L Hemoglobin 9.6 G/DL (14.2-18.0) L Hematocrit 28.5 % (42.0-52.0) L Mean Corpuscular Volume 86 FL (80-99) Mean Corpuscular Hemoglobin 28.8 PG (27.0-31.0) Mean Corpuscular Hemoglobin Concent 33.7 G/DL (32.0-36.0) Red Cell Distribution Width 12.8 % (11.6-14.8) Platelet Count 136 K/UL (150-450) L Mean Platelet Volume 8.4 FL (6.5-10.1) Neutrophils (%) (Auto) 77.9 % (45.0-75.0) H Lymphocytes (%) (Auto) 9.0 % (20.0-45.0) L Monocytes (%) (Auto) 8.3 % (1.0-10.0) Eosinophils (%) (Auto) 1.9 % (0.0-3.0) Basophils (%) (Auto) 2.9 % (0.0-2.0) H Prothrombin Time 10.7 SEC (9.30-11.50) Prothromb Time International Ratio 1.0 (0.9-1.1) Activated Partial Thromboplast Time 26 SEC (23-33) Sodium Level 143 MMOL/L (136-145) Potassium Level 3.5 MMOL/L (3.5-5.1) Chloride Level 108 MMOL/L (98-107) H Carbon Dioxide Level 25 MMOL/L (21-32) Anion Gap 10 mmol/L (5-15) Blood Urea Nitrogen 23 mg/dL (7-18) H Creatinine 1.5 MG/DL (0.55-1.30) H Estimat Glomerular Filtration Rate 45.9 mL/min (>60) Glucose Level 125 MG/DL (74-106) H Calcium Level 7.8 MG/DL (8.5-10.1) L Paul Reed MD Jul 04, 2019 12:34
--- NOTE | 2019-07-04 12:34 | Surgery Progress Note ---
Surgery Progress Note Subjective Additional Comments scope today doing well after no n/v/f/c Objective Last 24 Hour Vital Signs Date Time Temp Pulse Resp B/P (MAP) Pulse Ox O2 Delivery O2 Flow Rate FiO2 07/04/19 11:35 97.4 78 18 138/70 97 Room Air 07/04/19 11:25 76 18 129/66 100 Simple Mask 6 07/04/19 11:19 77 16 100 07/04/19 11:15 77 18 128/60 100 Simple Mask 6 07/04/19 11:10 78 18 115/60 100 Simple Mask 6 07/04/19 11:05 97.6 77 17 93/46 100 Simple Mask 6 07/04/19 09:01 85 159/71 07/04/19 09:00 85 159/71 07/04/19 09:00 Room Air 07/04/19 08:59 159/71 07/04/19 08:00 97.2 85 20 159/71 (100) 95 07/04/19 07:29 82 18 94 Room Air 21 07/04/19 04:00 98.0 87 18 145/66 (92) 94 07/04/19 00:00 98.2 80 20 149/69 (95) 97 07/03/19 21:00 Room Air 07/03/19 20:44 74 145/62 07/03/19 20:28 74 20 94 Room Air 21 07/03/19 20:00 98.8 77 20 145/62 (89) 94 07/03/19 16:00 98.1 83 22 149/72 (97) 100 07/03/19 15:47 Nasal Cannula 1.0 I&O Intake and Output 07/03/19 07/04/19 19:00 07:00 Intake Total 1292.5 ml 480 ml Output Total 2000 ml 1400 ml Balance -707.5 ml -920 ml Intake Oral 800 ml 480 ml IV Total 492.5 ml Output Urine Total 2000 ml 1400 ml # Bowel Movements 5 Dressing: dry Wound: clean Cardiovascular: RSR Respiratory: clear Abdomen: soft, non-tender, present bowel sounds Extremities: no tenderness, no cyanosis Laboratory Tests Test 07/04/19 05:45 White Blood Count 7.6 K/UL (4.8-10.8) Red Blood Count 3.33 M/UL (4.70-6.10) L Hemoglobin 9.6 G/DL (14.2-18.0) L Hematocrit 28.5 % (42.0-52.0) L Mean Corpuscular Volume 86 FL (80-99) Mean Corpuscular Hemoglobin 28.8 PG (27.0-31.0) Mean Corpuscular Hemoglobin Concent 33.7 G/DL (32.0-36.0) Red Cell Distribution Width 12.8 % (11.6-14.8) Platelet Count 136 K/UL (150-450) L Mean Platelet Volume 8.4 FL (6.5-10.1) Neutrophils (%) (Auto) 77.9 % (45.0-75.0) H Lymphocytes (%) (Auto) 9.0 % (20.0-45.0) L Monocytes (%) (Auto) 8.3 % (1.0-10.0) Eosinophils (%) (Auto) 1.9 % (0.0-3.0) Basophils (%) (Auto) 2.9 % (0.0-2.0) H Prothrombin Time 10.7 SEC (9.30-11.50) Prothromb Time International Ratio 1.0 (0.9-1.1) Activated Partial Thromboplast Time 26 SEC (23-33) Sodium Level 143 MMOL/L (136-145) Potassium Level 3.5 MMOL/L (3.5-5.1) Chloride Level 108 MMOL/L (98-107) H Carbon Dioxide Level 25 MMOL/L (21-32) Anion Gap 10 mmol/L (5-15) Blood Urea Nitrogen 23 mg/dL (7-18) H Creatinine 1.5 MG/DL (0.55-1.30) H Estimat Glomerular Filtration Rate 45.9 mL/min (>60) Glucose Level 125 MG/DL (74-106) H Calcium Level 7.8 MG/DL (8.5-10.1) L Plan Problems: (1) Sacral decubitus ulcer Assessment & Plan: Patient identified to have a stage II sacral decubitus ulcer as well as incontinence associated dermatitis in the surrounding areas. Patient with diarrhea and sometimes sits for prolonged period times in stool. He has been changes frequently as possible by nursing staff and his been instructed to let staff know when incontinence so that they can assist him in changing. A is seen at bedside today with family available. We discussed current status and reviewed the wound together. We evaluated it cleaned and applied new dressings. We discussed the formation the etiology and the prognosis. Patient is able to move on his side on his own and is able to move in bed. He states he lays comfortably on his back but is instructed to return as much as possible. I have told him that the nursing staff and even myself and my team will assist him with turning as much as possible but given the fact that he is able to move on his own it would be strongly advised to turn as often as possible to alleviate pressure on his wound or develop new wounds. I explained to them that in laying in 1 position for prolonged period time can cause worsening cubitus ulcers or new ulcers to form. Long session was had with the patient and family and care plan was initiated. Patient is very amenable to care plan and cooperative. We will continue to monitor while inpatient and ensure improvemen Pt presents with two partial thickness pressure injuries R and L buttocks with surrounding Moisture Associated Skin Damage Partial thickness pressure injury R buttocks (L)2.2cm x (W)1cm. Base of wound is moist and viable with loose skin flap along edges. No odor or exudate. Periwound erythematous with denuded skin. Partial thickness pressure injury L buttocks. Base of wound is moist and viable. Edges are macerated. Non-blanching erythema with moisture denudement periwound.No exudate noted(L)2cm x (W)3cm.Scrotum erythematous with scattered satellite lesions at base of Scrotum. Both heels are boggy with non-blanching erythema. Pt denied tenderness when each heel individually palpated. Pt noted to be incontinent of loose B.M at start of visit. Pt also demonstrated ability to reposition self in bed but according to staff on unit pt is non- compliant and lacks motivation. PT informed of pressure injuries R and L buttocks , erythematous Scrotum and risks for further Skin decline. Pt educated on comorbidities that can contribute to wounds declining. Instructed pt to call for asst with toileting and encouraged to frequently reposition ,at least hourly while in bed. Pt declined to respond to verbal instructions. Spouse visited and updated on skin breakdown . Spouse also educated of risks for further skin breakdown if pt continues to be non-compliant with repositioning and toileting. I had a long discussion at bedside today 06/30/2019 with the patient and his . I explained to patient the above findings again and we reviewed the decubitus formation and goals and plans of care for prevention as well as improvement. I have asked patient to help mobilize himself and he was able to turn to his left side following to the right side. Given his size it does take a little bit of effort but it is possible and he is able to do it on his own. I explained to patient how important it is to continue current side specially as he can do it on its own. Patient states he just wants to relax and be comfortable on his back. I explained to them how the above findings of formed and how they may worsen if he continues to do so. Patient is clearly competent and expresses understanding. I explained the patient that it would be very important for him to continue with the plan of care that we have discussed. Patient states that it should be someone at all times to help him with these things and explained to patient that nursing staff and myself are willing and helping as much as necessary but he is capable and we strongly recommend that since he has ability it would be strongly recommended for him to offload pressure as much as possible. Tx.Plan: Apply Moisture Barrier Paste to R and L buttocks. Cover with Optifoam drsg. Change every 3 days and prn. Apply Moisture Barrier Paste to Scrotum with each incontinence care. Encourage to reposition self at least hourly while in bed. Apply Cavilon Skin Barrier to each heels. Cover each heel with OPtifoam drsg. Change every 7 days and prn. Off-load heels with Pillow. (2) Incontinence associated dermatitis (3) Left upper quadrant abdominal mass Assessment & Plan: Telemetry pancreatic mass cystic large with infiltration around it worsening on recent CT. Discussed with GI and agree will need EUS but given elevated troponins and current cardiac status will await clearance and improvement prior to proceeding with EUS. The myocardial perfusion scan demonstrates large perfusion defect involving the inferior wall and apex consistent with a myocardial infarct. This extends into the inferolateral segment. IMPRESSION: Inferior and inferolateral wall infarct including the apex. No definite evidence of myocardial ischemia. Note: The study was limited because of difficulty with gating due to the patient 's irregular heart rhythm. LVEF also could not be calculated. (4) Acute pancreatitis Assessment & Plan: Lungs: Small posterior basilar pleural effusions are demonstrated. Consolidation versus atelectasis involving the lung bases bilaterally. Similar appearance on the prior occasion.. Liver: Unremarkable Gallbladder/biliary system: Gallbladder is absent. No biliary ductal dilatation seen.. Spleen: Unremarkable Pancreas: Pancreas is atrophic. Once again there is a large approximately 10 cm well-circumscribed cystic mass in the left upper quadrant associated with the tail the pancreas. This has been previously described and was seen on the last 2 CT examinations. This cyst is questionably slightly smaller. There is however moderately increased soft tissue stranding in the area surrounding the cyst anteriorly indicative of inflammation. In addition part of the splenic flexure which abuts the cyst and traverses the area of inflammation shows focal dilatation likely a localized inflammatory response or localized ileus. The degree of inflammation has significantly increased and is worse than both the prior occasions on 06/20/2019 or on 06/15/2019. In addition the degree of anasarca has increased. There is a small amount of free fluid within the abdomen which has also increased slightly since the last study. Kidneys/Bladder: No definite stone or hydronephrosis are identified. There is a probable right renal cyst again noted. The urinary bladder is nondistended. Rivero catheter in good position. Adrenal glands: Unremarkable Bowel: Unremarkable. Aorta/IVC: Aortoiliac calcifications are noted consistent with atherosclerotic disease. Peritoneum: There is mild free fluid present within the peritoneal cavity.. Bones: There is narrowing of intervertebral discs and accompanying endplate osteophyte formation. Hypertrophied facet joints also demonstrated. Generalized osteopenia noted. Moderate osteoarthritis of both hips demonstrated. IMPRESSION: Moderate increased inflammation surrounding a 10 cm cystic mass in the left upper quadrant. The cystic mass may be slightly smaller than on the previous CT examinations performed 06/20/2019 and 06/15/2019. 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 Cystic neoplasm is not excluded. Persistent small bilateral pleural effusions and underlying consolidation/atelectasis. Trace ascites. Worsening anasarca. Status post cholecystectomy. Arterial vascular disease. Benitez Sheppard Jul 04, 2019 12:34
--- NOTE | 2019-07-04 13:47 | 48 Hour Post Anesthesia Eval ---
Post Anesthesia Evaluation Procedure: EGD, EUS Date of Evaluation: Jul 04, 2019 Time of Evaluation: 13:46 Blood Pressure Systolic: 138 0: 70 Pulse Rate: 78 Respiratory Rate: 18 Temperature (Fahrenheit): 97.4 O2 Sat by Pulse Oximetry: 97 Airway: patent Nausea: No Vomiting: No Pain Intensity: 0 Hydration Status: adequate Cardiopulmonary Status: stable Mental Status/LOC: patient returned to baseline Follow-up Care/Observations: per hospitalist Post-Anesthesia Complications: none Follow-up care needed: N/A Audra Pelletier CRNA Jul 04, 2019 13:47
--- NOTE | 2019-07-04 14:02 | NUR ---
DISCHARGE PLANNING CLINICALS FAXED TO [facility] T: [phone] F:[phone] WILL F/U Addendum: 07/04/19 at 1657 by JABARI HARVEY LVN CALLED TO GET STATUS OF BED INFORMED BY KERVIN THAT INTAKE DEPARTMENT IS IN [place] REVIEW OF THIS CASE FOR ADMISSION WILL CONTINUE Sunday07/07/19
--- NOTE | 2019-07-04 15:09 | General Progress Note ---
Assessment/Plan Status: stable Assessment/Plan: 73 y/o M with PMH HTN, IDDM, ? history of CVA who presented to [facility] ED with nausea,vomiting. On admission pt w/acute respiratory failure, initially admitted to ICU, was placed on BiPAP, pt improved and now on NC. Pt was found to have Klebsiella bacteremia, ID consulted and pt was started on zosyn and zyvox. WBC's elevated on 06/25 for which repeat BCx were drawn which are negative at this time. Pt w/elevated lipase, found to have acute pancreatitis, CT abd revealed pancreatic pseudocyst for which GI was consulted, pt will need EUS once more stable. Pt also w/NSTEMI, acute on chronic heart failure, cardio consulted and plan for stress test once more stable. #Klebsiella bacteremia #Leukocytosis - downtrending #? infected pancreatic pseudocyst, ? aspiration pna/HCAP vs atx, arf -BCx on admission pt was found to be in septic shock, now resolved, BCx + for klebsiella bacteremia -BCx 3/ NGTD -BCx / NGTD -UCx / NGTD -on 06/25 pt w/leukocytosis, repeat BCx / NGTD -CT A/P on 06/25: with mild improvement of pseudocyst. no abscess or acute pathology identified. -indium scan negative -cont zosyn, zyvox for 1 more day #Chronic systolic CHF, HFrEF 40% TTE with EF ~40% Continue MTP 25 BID Cardiology following started on Aldactone Stress test without reversible ischemia #acute hypoxic resp failure without hypercarbia - stable off BiPAP continue inhaled bronchodilators Pulm/CCM following bipap prn and QHS - patient noncompliant #NSTEMI, peak trop of 2, likely due to demand ischemia was initially placed on heparin on admission, now off heparin Cardiology following #acute kidney injury on CKD, possible ATN - downtrending s/p IV hydration cont. to monitor BMP avoid nephrotoxic meds scr with improvement Nephrology following #acute pancreatitis #Pancreatic Pseudocyst low fat diet PPI Pancreaolipase EUS on Monday 07/03 #Thrombocytopenia - resolved #Rule out HIT etiology likely multifactorial, likely due to sepsis cont to monitor daily CBC Hematology following - ok for DVT ppx w/heparin or lovenox when plts >50k #Hypokalemia, hypomagnesemia - resolved replaced, cont. to monitor, replace PRN #lactic acidosis #HTN cont Norvasc #DM type 2 ISS #Septic shock - resolved on admission pt was in ICU, now improved off pressors cont. to monitor VTE PPx - SCDs Full Code Dispo: Spoke with case management rn regarding possible ARU admission vs SNF Time spent on encounter: 35 mins, >50% on counseling, coordination of care. Time of note doesn't reflect time of encounter. Subjective Date patient seen: Jul 04, 2019 Time patient seen: 15:08 Constitutional: Denies: chills, fever Cardiovascular: Denies: chest pain Respiratory: Denies: cough Gastrointestinal/Abdominal: Denies: abdomen distended, abdominal pain Neurologic/Psychiatric: Denies: anxiety Allergies: Coded Allergies: No Known Allergies (Unverified , 06/02/19) Subjective Follow up for septic shock, acute hypoxic resp failure, ZARINA, acute metabolic encephalopathy No current complaints, denies abdominal pain, nausea, vomiting Stress test negative for reversible ischemia Indium scan negative S/p EUS today Objective Last 24 Hour Vital Signs Date Time Temp Pulse Resp B/P (MAP) Pulse Ox O2 Delivery O2 Flow Rate FiO2 07/04/19 13:47 78 18 97 07/04/19 11:35 97.4 78 18 138/70 97 Room Air 07/04/19 11:25 76 18 129/66 100 Simple Mask 6 07/04/19 11:19 77 16 100 07/04/19 11:15 77 18 128/60 100 Simple Mask 6 07/04/19 11:10 78 18 115/60 100 Simple Mask 6 07/04/19 11:05 97.6 77 17 93/46 100 Simple Mask 6 07/04/19 09:01 85 159/71 07/04/19 09:00 85 159/71 07/04/19 09:00 Room Air 07/04/19 08:59 159/71 07/04/19 08:00 97.2 85 20 159/71 (100) 95 07/04/19 07:29 82 18 94 Room Air 21 07/04/19 04:00 98.0 87 18 145/66 (92) 94 07/04/19 00:00 98.2 80 20 149/69 (95) 97 07/03/19 21:00 Room Air 07/03/19 20:44 74 145/62 07/03/19 20:28 74 20 94 Room Air 21 07/03/19 20:00 98.8 77 20 145/62 (89) 94 07/03/19 16:00 98.1 83 22 149/72 (97) 100 07/03/19 15:47 Nasal Cannula 1.0 Intake and Output 07/03/19 07/04/19 19:00 07:00 Intake Total 1292.5 ml 480 ml Output Total 2000 ml 1400 ml Balance -707.5 ml -920 ml Intake Oral 800 ml 480 ml IV Total 492.5 ml Output Urine Total 2000 ml 1400 ml # Bowel Movements 5 Laboratory Tests 07/04/19 05:45: White Blood Count 7.6, Red Blood Count 3.33L, Hemoglobin 9.6L, Hematocrit 28.5L , Mean Corpuscular Volume 86, Mean Corpuscular Hemoglobin 28.8, Mean Corpuscular Hemoglobin Concent 33.7, Red Cell Distribution Width 12.8, Platelet Count 136L, Mean Platelet Volume 8.4, Neutrophils (%) (Auto) 77.9H, Lymphocytes (%) (Auto) 9.0L, Monocytes (%) (Auto) 8.3, Eosinophils (%) (Auto) 1.9, Basophils (%) (Auto) 2.9H, Prothrombin Time 10.7, Prothromb Time International Ratio 1.0, Activated Partial Thromboplast Time 26, Sodium Level 143, Potassium Level 3.5, Chloride Level 108H, Carbon Dioxide Level 25, Anion Gap 10, Blood Urea Nitrogen 23H, Creatinine 1.5H, Estimat Glomerular Filtration Rate 45.9, Glucose Level 125H, Calcium Level 7.8L Height (Feet): 5 Height (Inches): 5.00 Weight (Pounds): 248 General Appearance: alert Neck: normal alignment, supple Cardiovascular: normal rate, regular rhythm, regularly irregular Respiratory/Chest: lungs clear, normal breath sounds, no respiratory distress Abdomen: non tender, soft, no organomegaly, no mass Harinder Ochoa MD Jul 04, 2019 15:09
--- NOTE | 2019-07-04 16:00 | Procedure Note ---
DATE OF PROCEDURE: 07/04/2019 SURGEON: Peyman Akbar M.D. REFERRING PHYSICIAN: Zaira Farooq M.D. PROCEDURE: Upper endoscopy with biopsy and endoscopic ultrasound. ANESTHESIA: Per Audra WATTS. INSTRUMENT: Olympus adult flexible upper scope and EUS scope. INDICATIONS: Pancreatic cyst, anemia, abdominal pain. REASON FOR PROCEDURE: The procedure, risks, benefits, and possible consequences, including hemorrhage, aspiration, perforation and infection, and alternative treatments, were explained to the patient/legal guardian by Dr. Peyman Akbra and the patient/legal guardian understood and accepted these risks. PROCEDURE IN DETAIL: After informed consent was obtained and the patient was adequately sedated, Olympus upper endoscope was advanced from mouth into the second portion of duodenum and retroflexion was performed in the stomach. The patient has evidence of diffuse gastritis. Random biopsies from antrum was obtained to rule out H. pylori infection. There was a bulge in the upper stomach most probably from the pseudocyst. At this time, the upper endoscope was retrieved and EUS scope was introduced. EUS showed evidence of large pancreatic pseudocyst roughly about 10 centimeter in size with some areas of debris inside the cyst. At this time, there was no evidence of any obvious mass seen. Given the size of the cyst and given the acuity of the pancreatitis, we do not think the wall is mature enough for pseudocyst drainage at this time and the patient seems to be asymptomatic. So, our recommendation is the patient to have outpatient followup CT scan in two months and consider doing enteric drainage if the patient still has the cyst at that time and if he is still symptomatic. SUMMARY OF FINDINGS: 1. Gastritis, status post biopsy. 2. A 10 cm pancreatic pseudocyst. RECOMMENDATIONS: As above. The patient needs to follow up with CT in two months and possible enteric drainage if the patient is symptomatic or still he has cyst. I want to thank Dr. Farooq for this kind referral. Peyman Akbar M.D. DR: SHREYAS JOB#: [id number] CC:
--- NOTE | 2019-07-04 16:58 | NUR ---
CASE MANAGEMENT:REVIEW 07/04/19 SI: S/P EUS GASTRITIS S/P BIOPSY SEPSIS. RESPIRATORY FAILURE NSTEMI. ACUTE METABOLIC ENCEPHALOPATHY 97.9 79 20 157/72 95% ON RA H/H-9.8/29.7 BUN+20 CA-8.0 IS: IV VANCOMYCIN QD ZENPEP PO TID IV NS BOLUS X1 ALDACTONE PO QD NORVASC PO QD ASA PO QD IV PROTONIX QD LOPRESSOR PO Q12 \: 4E MED SURG UNIT DCP: PATIENT IS FROM HOME
[2019-07-04] MEDS: Vancomycin 1.5gm/NS Premix IVPB SCH (17:35)
--- NOTE | 2019-07-04 18:40 | Infectious Diseases Prog Note ---
Assessment/Plan Assessment/Plan 1. hx klebsiella bacteremia, sepsis, leukocytosis, ? infected pancreatic pseudocyst, ? aspiration pna/HCAP vs atx, arf, CT abdomen and pelvis noted, CT chest noted, chest x-ray noted - zosyn and vancomycin, avoid nephrotoxic antibiotics - day # 9/10 abx - zyvox discontinued because of thrombocytopenia - surveillance cultures negative - monitor labs, leukocytosis resolved - CT chest - with infiltrates - c.diff. - negative - indium scan negative - d/w pharmacy about abx 2. Shock - improved, off pressors 3. Shortness of breath, hypoxia, on BiPAP - improved, off pressors 4. Pulmonary followup. 5. Acute renal failure. 6. Anemia. 7. Diabetes. 8. Hypertension. 9. Blood sugar and blood pressure treatment per primary care team. 10. Possible CVA history. 11. No known drug allergies. 12. Social history is negative. 13. Family history is noncontributory. 14. MAR was noted. 15. Case discussed with RN. 16. Continue treatment per primary consultants. 17. ICU care. 18. Skin care protocol. 19. Orders were noted and entered. 20. GI followup. Subjective Constitutional: Denies: fever HEENT: Denies: congestion Respiratory: Denies: shortness of breath Cardiovascular: Denies: chest pain Gastrointestinal/Abdominal: Denies: nausea, vomiting, diarrhea Genitourinary: Reports: other - + contreras Neurologic: Denies: headache Psychiatric: Denies: depression Skin: Denies: rash Hematologic: Denies: bleeding Musculoskeletal: Denies: pain Allergies: Coded Allergies: No Known Allergies (Unverified , 06/02/19) Objective Vital Signs Last 24 Hour Vital Signs Date Time Temp Pulse Resp B/P (MAP) Pulse Ox O2 Delivery O2 Flow Rate FiO2 07/04/19 16:00 97.9 79 20 157/72 (100) 95 07/04/19 13:47 78 18 97 07/04/19 11:35 97.4 78 18 138/70 97 Room Air 07/04/19 11:25 76 18 129/66 100 Simple Mask 6 07/04/19 11:19 77 16 100 07/04/19 11:15 77 18 128/60 100 Simple Mask 6 07/04/19 11:10 78 18 115/60 100 Simple Mask 6 07/04/19 11:05 97.6 77 17 93/46 100 Simple Mask 6 07/04/19 09:01 85 159/71 07/04/19 09:00 85 159/71 07/04/19 09:00 Room Air 07/04/19 08:59 159/71 07/04/19 08:00 97.2 85 20 159/71 (100) 95 07/04/19 07:29 82 18 94 Room Air 21 07/04/19 04:00 98.0 87 18 145/66 (92) 94 07/04/19 00:00 98.2 80 20 149/69 (95) 97 07/03/19 21:00 Room Air 07/03/19 20:44 74 145/62 07/03/19 20:28 74 20 94 Room Air 21 07/03/19 20:00 98.8 77 20 145/62 (89) 94 Height (Feet): 5 Height (Inches): 5.00 Weight (Pounds): 248 General Appearance: no acute distress HEENT: normocephalic, atraumatic, anicteric, mucous membranes moist Respiratory/Chest: crackles/rales, rhonchi - bilaterally Cardiovascular: normal rate, regular rhythm, no gallop/murmur, no JVD Abdomen: normal bowel sounds, soft, non tender, no organomegaly, non distended Genitourinary: other - + contreras - urine- clear Extremities: no cyanosis Skin: no rash 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 Findings: Pulmonary vascular interstitial prominence demonstrated with cardiomegaly. There is a left-sided PICC line with the tip projected over the SVC. Old right clavicle fracture noted. IMPRESSION: Mild CHF CT abdomen and pelvis - 06/15/19 - Impression: Unilocular left upper quadrant cystic mass adjacent to the tail of pancreas and the greater curvature of the stomach. Favor pancreatic pseudocyst, particularly in view of evidence of pancreatic atrophy. However, cystic neoplasm of pancreatic, gastric, or other origin also possible. Consider contrast MRI for better characterization Small ventral hernia containing a single small loop of small bowel, no definite obstruction or strangulation related to such Mildly distended proximal small bowel with slow forward transit of ingested contrast. Suspect ileus or enteritis, although early/partial small bowel obstruction also possible. Correlate with clinical findings Mild distal soft tissue wall thickening, esophagitis possible. Correlate with clinical findings Bilateral basilar pulmonary parenchymal infiltrates versus edema, fairly extensive Cardiomegaly. Apparent bladder wall thickening. Probably an artifact of lack of distention, but cystitis also possible Nonspecific bilateral perinephric fat stranding. Suspect chronic although acute renal inflammation also possible Chest x-ray - 06/20/19 - Procedure: XRAY Chest 1v Indication: Cough Technique: One view of the chest Comparison: 06/19/2019 Findings: Right mid and lower lung infiltrates, generalized interstitial congestion persists, unchanged. Cardiomegaly again demonstrated. Impression: Unchanged, over one day, findings as above. CT abdomen and pelvis - 06/20/19 - Impression: Left upper quadrant cystic mass adjacent to the pancreatic tail and greater curvature the stomach, also reported previously, equivocally slightly larger currently. As previously described, most likely a pancreatic pseudocyst. Cystic pancreatic neoplasm also possible Trace ascites. This is a new finding since the prior exam. Bilateral pleural effusions and bilateral pulmonary parenchymal compressive atelectasis. Likewise a new finding since previous study Nonspecific bilateral perinephric fat stranding, also previously reported Bilateral basilar pulmonary interstitial and airspace edema Generalized edema of the subcutaneous fat Portable cardiomegaly Empty bladder with a Contreras catheter Degenerative spondylosis Chest x-ray - 06/24/19- Comparison: 06/12/2019 A single view chest radiograph was obtained. Findings: No definite infiltrate or pulmonary vascular congestion identified. The heart is enlarged. The aorta is mildly enlarged consistent with atherosclerotic vascular disease. The bones are osteopenic. There are thoracic vertebral enthesophytes at multiple levels. Impression: No acute disease 06/26/19 - CT scan of abdomen and pelvis: IMPRESSION: Moderate increased inflammation surrounding a 10 cm cystic mass in the left upper quadrant. The cystic mass may be slightly smaller than on the previous CT examinations performed 06/20/2019 and 06/15/2019. 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 Cystic neoplasm is not excluded. Persistent small bilateral pleural effusions and underlying consolidation/atelectasis. Trace ascites. Worsening anasarca. Status post cholecystectomy. Arterial vascular disease. Chest x-ray - 06/25/19 - Procedure: XRAY Chest 1v Indication: Dyspnea Comparison: 06/23/2019 A single view chest radiograph was obtained. Findings: Interstitial is mildly prominent but findings appear stable. There is suspected mild atelectasis right lung base. Please correlate clinically. Similar findings seen previously. The heart is enlarged. IMPRESSION: Mild right basal atelectasis. No change otherwise. CT chest: IMPRESSION: Bilateral lower lobe infiltrates and/or atelectasis. Mild to moderate bilateral pleural effusions. Minimal scarring in the left anterior upper lobe. Arterial vascular disease Cardiomegaly Status post cholecystectomy Indium scan - negative, report noted Microbiology Date/Time Source Procedure Growth Status 06/25/19 10:20 Blood Blood Culture - Final NO GROWTH AFTER 5 DAYS Complete 06/17/19 10:00 Sputum Induced Gram Stain - Final Complete 06/17/19 10:00 Sputum Induced Sputum Culture - Final NO GROWTH AFTER 48 HOURS Complete 06/30/19 18:00 Stool Clostridium difficile Toxin Assay - Final Complete 06/25/19 18:00 Indwelling Cath Urine Culture - Final NO GROWTH AFTER 48 HOURS Complete 06/22/19 21:00 Arm Left Catheter Tip Culture - Final NO GROWTH AFTER 4 DAYS Complete Laboratory Tests Test 07/04/19 05:45 White Blood Count 7.6 K/UL (4.8-10.8) Red Blood Count 3.33 M/UL (4.70-6.10) L Hemoglobin 9.6 G/DL (14.2-18.0) L Hematocrit 28.5 % (42.0-52.0) L Mean Corpuscular Volume 86 FL (80-99) Mean Corpuscular Hemoglobin 28.8 PG (27.0-31.0) Mean Corpuscular Hemoglobin Concent 33.7 G/DL (32.0-36.0) Red Cell Distribution Width 12.8 % (11.6-14.8) Platelet Count 136 K/UL (150-450) L Mean Platelet Volume 8.4 FL (6.5-10.1) Neutrophils (%) (Auto) 77.9 % (45.0-75.0) H Lymphocytes (%) (Auto) 9.0 % (20.0-45.0) L Monocytes (%) (Auto) 8.3 % (1.0-10.0) Eosinophils (%) (Auto) 1.9 % (0.0-3.0) Basophils (%) (Auto) 2.9 % (0.0-2.0) H Prothrombin Time 10.7 SEC (9.30-11.50) Prothromb Time International Ratio 1.0 (0.9-1.1) Activated Partial Thromboplast Time 26 SEC (23-33) Sodium Level 143 MMOL/L (136-145) Potassium Level 3.5 MMOL/L (3.5-5.1) Chloride Level 108 MMOL/L (98-107) H Carbon Dioxide Level 25 MMOL/L (21-32) Anion Gap 10 mmol/L (5-15) Blood Urea Nitrogen 23 mg/dL (7-18) H Creatinine 1.5 MG/DL (0.55-1.30) H Estimat Glomerular Filtration Rate 45.9 mL/min (>60) Glucose Level 125 MG/DL (74-106) H Calcium Level 7.8 MG/DL (8.5-10.1) L Current Medications Medications (Trade) Dose Ordered Sig/Arley Route PRN Reason Start Time Stop Time Status Last Admin Dose Admin Acetaminophen (Tylenol) 650 mg Q4H PRN ORAL Mild Pain (Pain Scale 1-3) 07/02/19 19:00 07/15/19 18:59 Albumin Human 50 ml @ 50 mls/hr DAILYPRN PRN IV For hypotension 07/02/19 19:00 08/01/19 18:59 Amlodipine Besylate (Norvasc) 10 mg DAILY ORAL 07/03/19 09:00 07/24/19 08:59 07/04/19 09:01 Amylase/Lipase/ Protease (Zenpep) 3 ea THREE TIMES A DAY ORAL 07/03/19 09:00 07/26/19 13:59 07/04/19 17:35 Aspirin (ASA) 81 mg DAILY ORAL 07/03/19 09:00 07/20/19 08:59 07/03/19 09:56 Bisacodyl (Dulcolax) 10 mg DAILYPRN PRN RECTAL Constipation 07/02/19 19:00 07/24/19 18:59 Dextrose (Dextrose 50%) 25 ml Q30M PRN IV Hypoglycemia 07/02/19 19:15 07/16/19 18:05 Dextrose (Dextrose 50%) 50 ml Q30M PRN IV Hypoglycemia 07/02/19 19:15 07/16/19 18:05 Insulin Aspart (NovoLOG) AC+HS SUBQ 07/02/19 21:00 07/20/19 17:59 07/04/19 17:36 Lisinopril (PriniviL) 20 mg DAILY ORAL 07/05/19 09:00 08/02/19 08:59 Loperamide HCl (Imodium) 2 mg Q4H PRN ORAL Diarrhea 07/02/19 19:00 08/01/19 18:59 Magnesium Hydroxide (Mom) 30 ml HSPRN PRN ORAL Constipation 07/02/19 21:00 07/15/19 20:59 Metoprolol Tartrate (Lopressor) 25 mg Q12HR ORAL 07/02/19 21:00 07/20/19 08:59 07/04/19 09:00 Ondansetron HCl (Zofran) 4 mg Q6H PRN IVP Nausea & Vomiting 07/02/19 19:00 07/24/19 18:59 Pantoprazole (Protonix) 40 mg DAILY ORAL 07/03/19 09:00 07/28/19 08:59 07/04/19 09:01 Spironolactone (Aldactone) 12.5 mg DAILY ORAL 07/03/19 09:00 08/01/19 08:59 07/04/19 08:59 Vancomycin HCl (Vanco rx to dose) 1 ea DAILY PRN MISC VANCOMYCIN 07/03/19 16:00 08/02/19 15:59 Vancomycin/Sodium Chloride 275 ml @ 137.5 mls/ hr Q24H IVPB 07/03/19 17:00 07/08/19 16:59 07/04/19 17:35 Pranay Waller MD Jul 04, 2019 18:40
--- NOTE | 2019-07-04 19:10 | NUR ---
NURSE NOTES: Received patient on bed, awake and verbally responsive. respirations even and unlabored. no sob. denies any pain or discomfort. with iv line on the left hand, saline lock. bed locked and in lowest position. reiterated to call or ask for assistance. bed alarm on. call light and light button within easy reach. will continue plan of care.
--- NOTE | 2019-07-04 19:20 | NUR ---
HAND-OFF: Report given to Jen SCHULER.
[2019-07-05] VITALS: BP 150/72
--- NOTE | 2019-07-05 02:46 | NUR ---
NURSE NOTES: NURSE NOTES: patient is sleeping comfortably on bed. no sob. no facial grimacing. bed locked and in lowest position. call light and light button within easy reach. will continue plan of care.
[2019-07-05 04:00] VITALS: BP 143/70
[2019-07-05] MEDS: NovoLOG Insulin Flexpen SUBQ SCH ×4 (06:23→21:35)
--- NOTE | 2019-07-05 07:30 | NUR ---
HAND-OFF: Report given to nikita cardona .
--- NOTE | 2019-07-05 07:57 | NUR ---
NURSE NOTES: Patient awake, alert x3; on room air, no sing of distress and shortness of breath; no sing of chest pain; IV Left-Hand 20G TKO; Rivero in place drains yellow urine; side rails up x2, breaks engaged, bed at lowest position; call light within reach; will keep monitoring.
[2019-07-05 08:00] VITALS: BP 140/75
[2019-07-05] MEDS: Lisinopril 20mg tab ORAL SCH (09:25)
[2019-07-05] MEDS: Spironolactone 25mg tab ORAL SCH (09:25)
[2019-07-05] MEDS: Pancrelipase Dr Cap ORAL SCH ×3 (09:25→17:14)
[2019-07-05] MEDS: Aspirin Baby 81mg ORAL SCH (09:25)
--- NOTE | 2019-07-05 11:33 | Cardiology Progress Note ---
Assessment/Plan Status: stable Assessment/Plan Assessment/Plan 73 year old man with HTN, IDDM, ? history of CVA who presented to [facility] with nausea,vomiting and hypertensive urgency and SOB -Empiric ABX and IV fluids -> WBC now normal, no fevers, cultures negative -BiPAP prn, continue pulmonary rehab/toilet/CPT, serial chest x ray -V/Q and LE US negative for thrombus, CXR with cardiomegaly and interstitial prominence -Echocardiogram with LVEF 40% and PA pressure 55 mmHG and elevated right atrial pressures. -Continue diuresis to lower filling pressures, recommend repeating limited Echocardiogram once dry weight achieved to re-evaluate pulmonary/filling pressures - ok to do as outpatient -Continue low dose metoprolol 25 mg BID for systolic dysfunction and titrate -Continue ACEi/ARB for afterload reduction -DASH diet -Stress test negative -Clear for d.c from cardiac standpoint Subjective Cardiovascular: Reports: no symptoms Respiratory: Reports: no symptoms Gastrointestinal/Abdominal: Reports: no symptoms Genitourinary: Reports: no symptoms Subjective No acute events, vitals stable, no CP/SOB, WBC resolved Objective Last 24 Hour Vital Signs Date Time Temp Pulse Resp B/P (MAP) Pulse Ox O2 Delivery O2 Flow Rate FiO2 07/05/19 09:25 140/75 07/05/19 09:25 80 140/75 07/05/19 09:24 80 140/75 07/05/19 09:00 Room Air 07/05/19 08:00 95 18 91 Room Air 21 07/05/19 08:00 98.3 80 18 140/75 (96) 96 07/05/19 04:00 98.2 83 18 143/70 (94) 94 07/05/19 01:57 82 18 95 Room Air 21 07/05/19 00:00 97.9 82 18 150/72 (98) 95 07/04/19 21:04 86 151/72 07/04/19 21:00 Room Air 07/04/19 20:00 98.4 86 18 151/72 (98) 95 07/04/19 16:00 97.9 79 20 157/72 (100) 95 07/04/19 13:47 78 18 97 07/04/19 11:35 97.4 78 18 138/70 97 Room Air General Appearance: no apparent distress, alert EENT: PERRL/EOMI, normal ENT inspection Neck: non-tender, normal alignment, supple, normal inspection, no JVD Rhythm: NSR Cardiovascular: normal peripheral pulses, normal rate, regular rhythm Respiratory/Chest: chest wall non-tender, lungs clear, normal breath sounds, no respiratory distress, no accessory muscle use, respiratory distress Abdomen: normal bowel sounds, non tender, soft, no organomegaly, no mass Extremities: normal range of motion, non-tender, normal inspection, no calf tenderness, no swelling 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
[2019-07-05 12:00] VITALS: BP 139/80
--- NOTE | 2019-07-05 13:46 | Surgery Progress Note ---
Surgery Progress Note Subjective Symptoms: improved, tolerating diet, voiding well, passing flatus, BM Additional Comments ambulatory today improving Objective Last 24 Hour Vital Signs Date Time Temp Pulse Resp B/P (MAP) Pulse Ox O2 Delivery O2 Flow Rate FiO2 07/05/19 12:00 98.6 84 18 139/80 (99) 96 07/05/19 09:25 140/75 07/05/19 09:25 80 140/75 07/05/19 09:24 80 140/75 07/05/19 09:00 Room Air 07/05/19 08:00 95 18 91 Room Air 21 07/05/19 08:00 98.3 80 18 140/75 (96) 96 07/05/19 04:00 98.2 83 18 143/70 (94) 94 07/05/19 01:57 82 18 95 Room Air 21 07/05/19 00:00 97.9 82 18 150/72 (98) 95 07/04/19 21:04 86 151/72 07/04/19 21:00 Room Air 07/04/19 20:00 98.4 86 18 151/72 (98) 95 07/04/19 16:00 97.9 79 20 157/72 (100) 95 07/04/19 13:47 78 18 97 I&O Intake and Output 07/04/19 07/05/19 19:00 07:00 Intake Total 850 ml Output Total 800 ml 600 ml Balance 50 ml -600 ml Intake Oral 720 ml IV Total 130 ml Output Urine Total 800 ml 600 ml # Voids 1 # Bowel Movements 1 Dressing: dry Wound: clean Cardiovascular: RSR Respiratory: clear Abdomen: soft, flat, non-tender, present bowel sounds Extremities: no edema, no cyanosis Plan Problems: (1) Sacral decubitus ulcer Assessment & Plan: Patient identified to have a stage II sacral decubitus ulcer as well as incontinence associated dermatitis in the surrounding areas. Patient with diarrhea and sometimes sits for prolonged period times in stool. He has been changes frequently as possible by nursing staff and his been instructed to let staff know when incontinence so that they can assist him in changing. A is seen at bedside today with family available. We discussed current status and reviewed the wound together. We evaluated it cleaned and applied new dressings. We discussed the formation the etiology and the prognosis. Patient is able to move on his side on his own and is able to move in bed. He states he lays comfortably on his back but is instructed to return as much as possible. I have told him that the nursing staff and even myself and my team will assist him with turning as much as possible but given the fact that he is able to move on his own it would be strongly advised to turn as often as possible to alleviate pressure on his wound or develop new wounds. I explained to them that in laying in 1 position for prolonged period time can cause worsening cubitus ulcers or new ulcers to form. Long session was had with the patient and family and care plan was initiated. Patient is very amenable to care plan and cooperative. We will continue to monitor while inpatient and ensure improvemen Pt presents with two partial thickness pressure injuries R and L buttocks with surrounding Moisture Associated Skin Damage Partial thickness pressure injury R buttocks (L)2.2cm x (W)1cm. Base of wound is moist and viable with loose skin flap along edges. No odor or exudate. Periwound erythematous with denuded skin. Partial thickness pressure injury L buttocks. Base of wound is moist and viable. Edges are macerated. Non-blanching erythema with moisture denudement periwound.No exudate noted(L)2cm x (W)3cm.Scrotum erythematous with scattered satellite lesions at base of Scrotum. Both heels are boggy with non-blanching erythema. Pt denied tenderness when each heel individually palpated. Pt noted to be incontinent of loose B.M at start of visit. Pt also demonstrated ability to reposition self in bed but according to staff on unit pt is non- compliant and lacks motivation. PT informed of pressure injuries R and L buttocks , erythematous Scrotum and risks for further Skin decline. Pt educated on comorbidities that can contribute to wounds declining. Instructed pt to call for asst with toileting and encouraged to frequently reposition ,at least hourly while in bed. Pt declined to respond to verbal instructions. Spouse visited and updated on skin breakdown . Spouse also educated of risks for further skin breakdown if pt continues to be non-compliant with repositioning and toileting. I had a long discussion at bedside today 06/30/2019 with the patient and his . I explained to patient the above findings again and we reviewed the decubitus formation and goals and plans of care for prevention as well as improvement. I have asked patient to help mobilize himself and he was able to turn to his left side following to the right side. Given his size it does take a little bit of effort but it is possible and he is able to do it on his own. I explained to patient how important it is to continue current side specially as he can do it on its own. Patient states he just wants to relax and be comfortable on his back. I explained to them how the above findings of formed and how they may worsen if he continues to do so. Patient is clearly competent and expresses understanding. I explained the patient that it would be very important for him to continue with the plan of care that we have discussed. Patient states that it should be someone at all times to help him with these things and explained to patient that nursing staff and myself are willing and helping as much as necessary but he is capable and we strongly recommend that since he has ability it would be strongly recommended for him to offload pressure as much as possible. Tx.Plan: Apply Moisture Barrier Paste to R and L buttocks. Cover with Optifoam drsg. Change every 3 days and prn. Apply Moisture Barrier Paste to Scrotum with each incontinence care. Encourage to reposition self at least hourly while in bed. Apply Cavilon Skin Barrier to each heels. Cover each heel with OPtifoam drsg. Change every 7 days and prn. Off-load heels with Pillow. (2) Incontinence associated dermatitis (3) Left upper quadrant abdominal mass Assessment & Plan: Telemetry pancreatic mass cystic large with infiltration around it worsening on recent CT. Discussed with GI and agree will need EUS but given elevated troponins and current cardiac status will await clearance and improvement prior to proceeding with EUS. The myocardial perfusion scan demonstrates large perfusion defect involving the inferior wall and apex consistent with a myocardial infarct. This extends into the inferolateral segment. IMPRESSION: Inferior and inferolateral wall infarct including the apex. No definite evidence of myocardial ischemia. Note: The study was limited because of difficulty with gating due to the patient 's irregular heart rhythm. LVEF also could not be calculated. (4) Acute pancreatitis Assessment & Plan: Lungs: Small posterior basilar pleural effusions are demonstrated. Consolidation versus atelectasis involving the lung bases bilaterally. Similar appearance on the prior occasion.. Liver: Unremarkable Gallbladder/biliary system: Gallbladder is absent. No biliary ductal dilatation seen.. Spleen: Unremarkable Pancreas: Pancreas is atrophic. Once again there is a large approximately 10 cm well-circumscribed cystic mass in the left upper quadrant associated with the tail the pancreas. This has been previously described and was seen on the last 2 CT examinations. This cyst is questionably slightly smaller. There is however moderately increased soft tissue stranding in the area surrounding the cyst anteriorly indicative of inflammation. In addition part of the splenic flexure which abuts the cyst and traverses the area of inflammation shows focal dilatation likely a localized inflammatory response or localized ileus. The degree of inflammation has significantly increased and is worse than both the prior occasions on 06/20/2019 or on 06/15/2019. In addition the degree of anasarca has increased. There is a small amount of free fluid within the abdomen which has also increased slightly since the last study. Kidneys/Bladder: No definite stone or hydronephrosis are identified. There is a probable right renal cyst again noted. The urinary bladder is nondistended. Rivero catheter in good position. Adrenal glands: Unremarkable Bowel: Unremarkable. Aorta/IVC: Aortoiliac calcifications are noted consistent with atherosclerotic disease. Peritoneum: There is mild free fluid present within the peritoneal cavity.. Bones: There is narrowing of intervertebral discs and accompanying endplate osteophyte formation. Hypertrophied facet joints also demonstrated. Generalized osteopenia noted. Moderate osteoarthritis of both hips demonstrated. IMPRESSION: Moderate increased inflammation surrounding a 10 cm cystic mass in the left upper quadrant. The cystic mass may be slightly smaller than on the previous CT examinations performed 06/20/2019 and 06/15/2019. 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 Cystic neoplasm is not excluded. Persistent small bilateral pleural effusions and underlying consolidation/atelectasis. Trace ascites. Worsening anasarca. Status post cholecystectomy. Arterial vascular disease. Benitez Sheppard Jul 05, 2019 13:46
[2019-07-05 16:00] VITALS: BP 140/82
--- NOTE | 2019-07-05 17:37 | General Progress Note ---
Assessment/Plan Problem List: (1) Renal failure ICD Codes: N19 - Unspecified kidney failure SNOMED: 36175853 Qualifiers: Qualified Codes: N17.9 - Acute kidney failure, unspecified (2) Transient hypotension ICD Codes: I95.9 - Hypotension, unspecified SNOMED: 64397753899114 (3) Sepsis ICD Codes: A41.9 - Sepsis, unspecified organism SNOMED: 53909237 Qualifiers: Qualified Codes: A41.9 - Sepsis, unspecified organism; R65.21 - Severe sepsis with septic shock; N17.9 - Acute kidney failure, unspecified (4) Hypoxia ICD Codes: R09.02 - Hypoxemia SNOMED: 004522962 Status: stable Assessment/Plan: 73 y/o M with PMH HTN, IDDM, ? history of CVA who presented to [facility] [place] with nausea,vomiting. On admission pt w/acute respiratory failure, initially admitted to ICU, was placed on BiPAP, pt improved and now on NC. Pt was found to have Klebsiella bacteremia, ID consulted and pt was started on zosyn and zyvox. WBC's elevated on 06/25 for which repeat BCx were drawn which are negative at this time. Pt w/elevated lipase, found to have acute pancreatitis, CT abd revealed pancreatic pseudocyst for which GI was consulted, s/p EUS. stress test showing nonreversible ischemia. #Klebsiella bacteremia #Leukocytosis - downtrending #? infected pancreatic pseudocyst, ? aspiration pna/HCAP vs atx, arf -BCx on admission pt was found to be in septic shock, now resolved, BCx + for klebsiella bacteremia -BCx 3/ NGTD -BCx / NGTD -UCx 3/4 NGTD -on 06/25 pt w/leukocytosis, repeat BCx / NGTD -CT A/P on 06/25: with mild improvement of pseudocyst. no abscess or acute pathology identified. -indium scan negative -cont abx per ID. #Chronic systolic CHF, HFrEF 40% TTE with EF ~40% Continue MTP 25 BID Cardiology following started on Aldactone Stress test without reversible ischemia #acute hypoxic resp failure without hypercarbia - stable off BiPAP continue inhaled bronchodilators Pulm/CCM following bipap prn and QHS - patient noncompliant #NSTEMI, peak trop of 2, likely due to demand ischemia was initially placed on heparin on admission, now off heparin Cardiology following #acute kidney injury on CKD, possible ATN - downtrending s/p IV hydration cont. to monitor BMP avoid nephrotoxic meds scr with improvement Nephrology following #acute pancreatitis #Pancreatic Pseudocyst low fat diet PPI Pancreaolipase s/p EUS per GI (07/03) with gastritis, pancreatic pseudocyst seen. #Thrombocytopenia - resolved #Rule out HIT etiology likely multifactorial, likely due to sepsis cont to monitor daily CBC Hematology following - ok for DVT ppx w/heparin or lovenox when plts >50k #Hypokalemia, hypomagnesemia - resolved replaced, cont. to monitor, replace PRN #lactic acidosis #HTN cont Norvasc #DM type 2 ISS #Septic shock - resolved on admission pt was in ICU, now improved off pressors cont. to monitor VTE PPx - SCDs Full Code Dispo: Spoke with case maker regarding possible ARU admission vs SNF Subjective Date patient seen: Jul 05, 2019 Allergies: Coded Allergies: No Known Allergies (Unverified , 06/02/19) Subjective resting in bed. denies any fever, chills, abdominal pain or issues. ambulating. Objective Last 24 Hour Vital Signs Date Time Temp Pulse Resp B/P (MAP) Pulse Ox O2 Delivery O2 Flow Rate FiO2 07/05/19 16:00 98.3 87 19 140/82 (101) 97 07/05/19 12:00 98.6 84 18 139/80 (99) 96 07/05/19 09:25 140/75 07/05/19 09:25 80 140/75 07/05/19 09:24 80 140/75 07/05/19 09:00 Room Air 07/05/19 08:00 95 18 91 Room Air 21 07/05/19 08:00 98.3 80 18 140/75 (96) 96 07/05/19 04:00 98.2 83 18 143/70 (94) 94 07/05/19 01:57 82 18 95 Room Air 21 07/05/19 00:00 97.9 82 18 150/72 (98) 95 07/04/19 21:04 86 151/72 07/04/19 21:00 Room Air 07/04/19 20:00 98.4 86 18 151/72 (98) 95 Intake and Output 07/04/19 07/05/19 19:00 07:00 Intake Total 850 ml Output Total 800 ml 600 ml Balance 50 ml -600 ml Intake Oral 720 ml IV Total 130 ml Output Urine Total 800 ml 600 ml # Voids 1 # Bowel Movements 1 Height (Feet): 5 Height (Inches): 5.00 Weight (Pounds): 239 General Appearance: alert Neck: supple Cardiovascular: normal rate, regular rhythm Respiratory/Chest: lungs clear, normal breath sounds Abdomen: non tender, soft Neurologic: alert, oriented x 3 Ama Mallory M.D. Jul 05, 2019 17:37
--- NOTE | 2019-07-05 19:24 | NUR ---
HAND-OFF: Report given to GANGA Velasquez.
--- NOTE | 2019-07-05 19:35 | NUR ---
NURSE NOTES: RECEIVED PATIENT FROM GANGA ORELLANA. PATIENT IS AWAKE, AAOX3, ON ROOM AIR, NO ACUTE DISTRESS NOTED. PATIENT DENIES PAIN AND SOB. IV ON LEFT HAND INTACT AND PATENT. RUSSO CATH IN PLACE, RUSSO ANCHOR PRESENT, DRAINING WELL, DARK BROWN URINE NOTED. WOUND DRESSING INTACT AND DRY. BED IS LOCKED AND LOW, BED ALARMS ACTIVE, SIDE RAILS UP X2 AND CALL LIGHT IS WITHIN REACH, WILL CONTINUE TO MONITOR.
[2019-07-05 20:00] VITALS: BP 154/74
--- NOTE | 2019-07-05 20:37 | Nephrology Progress Note ---
Assessment/Plan Plan #acute kidney injury - on baseline CKD- Fena 0.4% suggestive of pre-renal aztemia- however UA with sediments and RBC concerning for developing ATN- patient with baseline diabetic nephropathy -Cr uptrended today #sepsis #acute pancreatitis- improved # Hypokalemia, hypopmagnesemia - repleted #lactic acidosis- improved #HTN- stable #DM- controlled #NSTEMI #hypernatremia - improved #eliana on CKD - baseline Cr in mid to high 1s- now worsening in the setting of sepsis and possibly vanco induced #metabolic acidosis - due to renal insufficiency - monitor Cr- stable - dc sodium bicarb 650mg TID - aldactone 12.5mg daily - lisinopril 20mg daily - check BMP in am #sepsis - monitor WBC - GI eval - s/p EUS per GI (07/03) with gastritis, pancreatic pseudocyst seen. #troponemia - heparin on hold for thrombocytopenia - HIT? - cardiology eval - stress test neg - aldactone 12.5mg daily - lisinopril 10mg daily #HTN - aldactone 12.5mg daily - lisinopril 20mg daily -increase amldipine to 10mg daily - metop 25mg BID #DM - hold metformin - ISS Subjective Subjective Breathing stable today s/p EUS per GI (07/03) with gastritis, pancreatic pseudocyst seen. no abdominal pain Stress test neg BP slightly up Objective Objective Last 24 Hour Vital Signs Date Time Temp Pulse Resp B/P (MAP) Pulse Ox O2 Delivery O2 Flow Rate FiO2 07/05/19 16:00 98.3 87 19 140/82 (101) 97 07/05/19 12:00 98.6 84 18 139/80 (99) 96 07/05/19 09:25 140/75 07/05/19 09:25 80 140/75 07/05/19 09:24 80 140/75 07/05/19 09:00 Room Air 07/05/19 08:00 95 18 91 Room Air 21 07/05/19 08:00 98.3 80 18 140/75 (96) 96 07/05/19 04:00 98.2 83 18 143/70 (94) 94 07/05/19 01:57 82 18 95 Room Air 21 07/05/19 00:00 97.9 82 18 150/72 (98) 95 07/04/19 21:04 86 151/72 07/04/19 21:00 Room Air Intake and Output 07/04/19 07/05/19 19:00 07:00 Intake Total 850 ml Output Total 800 ml 600 ml Balance 50 ml -600 ml Intake Oral 720 ml IV Total 130 ml Output Urine Total 800 ml 600 ml # Voids 1 # Bowel Movements 1 Height (Feet): 5 Height (Inches): 5.00 Weight (Pounds): 239 Objective General Appearance: Alert - no distress Lines, tubes and drains: peripheral HEENT: normocephalic, atraumatic Neck: non-tender, normal alignment Respiratory/Chest: chest wall non-tender, lungs clear, normal breath sounds Cardiovascular/Chest: normal rate, regular rhythm Abdomen: normal bowel sounds, non tender, soft Extremities: non-tender, normal inspection Skin Exam: normal pigmentation, no diaphoresis Gerson Salgado M.D. Jul 05, 2019 20:37
--- NOTE | 2019-07-05 23:17 | Hematology/Onc Progress Note ---
Assessment/Plan Assessment/Plan Assessment and recs: # Leukocytosis with hx of infection, hx klebsiella bacteremia, sepsis, leukocytosis, infected pancreatic pseudocyst, ? aspiration pna/HCAP vs atx, arf , CT abdomen and pelvis noted -> ct a/p reviewed --> wbc 15-->30-->24-->13.4-->10-->9.3-->7.6 --> on vanc/zosyn-->zosyn-->vanc # 10.7 cm unilocular cystic structure in the left upper quadrant retroperitoneal , corresponding to findings reported on recent CT scan. Most likely represents a pancreatic pseudocyst. --> continue to monitor as per gi --> repeat us or ct in short order, weeks to months to re-eval --> repeat ct showed mild enlargement of cyst/mass, will need further repeat imaging --> may need indium scan # Thrombocytopenia - potential causes multifactorial, in this case due to sepsis , less likely due to heparin --> Hep panel and HIV are negative --> US abd to evaluate for cirrhosis and hsm ordered and none noted --> Peripheral smear ordered to evaluate for blasts /schistocytes --> abx and other meds have been reviewed --> ok for ppx if plt >50k w/ either heparin or lovenox --> Transfuse if Plt < 20k and fever, or if Plt < 10k without fever --> plt trend 41-->49k-->63k-->110-->208-->148-->136 # DM, ? history of CVA who presented to [facility] [place] ED with nausea,vomiting. --> a1c goal <8, accuchecks qac/qhs # Septic shock, POA, possible biliary source --> cont ICU level of care --> cont IV hydration --> on abx, as per pulm/cc # Acute hypoxic resp failure without hypercarbia --> Intermittent BiPAP --> continue inhaled bronchodilators # NSTEMI, peak trop of 2, likely due to demand ischemia --> Stop heparin due to thrombocytopenia --> duplex lower legs is neg --> HIT neg --> per cards # Acute kidney injury on CKD, possible ATN --> Nephrology following # Acute pancreatitis --> hydration # HTN --> cont to hold BP meds # DM type 2 --> ISS # Dvt ppx scds Appreciate consultation and sydney Rn Subjective Constitutional: Denies: no symptoms, chills, fever, malaise, weakness, other Cardiovascular: Denies: no symptoms, chest pain, edema, irregular heart rate, lightheadedness, palpitations, syncope, other Respiratory: Denies: no symptoms, cough, shortness of breath, SOB with excertion, SOB at rest, sputum, wheezing, other Gastrointestinal/Abdominal: Denies: no symptoms, abdomen distended, abdominal pain, black stools, tarry stools, blood in stool, constipated, diarrhea, difficulty swallowing, nausea, poor appetite, poor fluid intake, rectal bleeding , vomiting, other Genitourinary: Denies: no symptoms, burning, discharge, frequency, flank pain, hematuria, incontinence, pain, urgency, other Endocrine: Denies: no symptoms, excessive sweating, flushing, intolerance to cold, intolerance to heat, increased hunger, increased thirst, increased urine, unexplained weight gain, unexplained weight loss, other Hematologic/Lymphatic: Denies: no symptoms, anemia, easy bleeding, easy bruising, adenopathy, other Allergies: Coded Allergies: No Known Allergies (Unverified , 06/02/19) Subjective 06/20: awake and alert, no overnight events, v mask 06/22: plts remain low, in the 40s, off anticaog, sydney rn, pending labs 06/23: is on broad spectrum abx, fluncon, ctx, flagyl, vanc, no f/c 06/24: on tele, no overnight events, wbc at 29.8, plt count improved 06/25: ct a/p is still pending given elev wbc, off pressors in tele 06/26: wbc continues to be elev, ct a/p reviewed, potentially smaller pseudocyst, may need indium scan 06/28: s/p wbc scan, on tele, no acute distress, nc 06/29: no bleeding or chills, labs re noted, no night sweats, cbc and bmp ordered 06/30: no events, less diarrhea with iimmdium given, c. diff is neg, labs ordered 07/01: sleeping comfortably, no events, wbc has improved, cbc pending 07/02: alert, no overnight events, bp on high end this am, no resp distress 07/03: no acute events, h/h stable, inr 1, on room air 07/04: no events, no night sweats Objective Objective Current Medications Medications (Trade) Dose Ordered Sig/Arley Route PRN Reason Start Time Stop Time Status Last Admin Dose Admin Acetaminophen (Tylenol) 650 mg Q4H PRN ORAL Mild Pain (Pain Scale 1-3) 07/02/19 19:00 07/15/19 18:59 Albumin Human 50 ml @ 50 mls/hr DAILYPRN PRN IV For hypotension 07/02/19 19:00 08/01/19 18:59 Amlodipine Besylate (Norvasc) 10 mg DAILY ORAL 07/03/19 09:00 07/24/19 08:59 07/05/19 09:25 Amylase/Lipase/ Protease (Zenpep) 3 ea THREE TIMES A DAY ORAL 07/03/19 09:00 07/26/19 13:59 07/05/19 17:14 Aspirin (ASA) 81 mg DAILY ORAL 07/03/19 09:00 07/20/19 08:59 07/05/19 09:25 Bisacodyl (Dulcolax) 10 mg DAILYPRN PRN RECTAL Constipation 07/02/19 19:00 07/24/19 18:59 Dextrose (Dextrose 50%) 25 ml Q30M PRN IV Hypoglycemia 07/02/19 19:15 07/16/19 18:05 Dextrose (Dextrose 50%) 50 ml Q30M PRN IV Hypoglycemia 07/02/19 19:15 07/16/19 18:05 Insulin Aspart (NovoLOG) AC+HS SUBQ 07/02/19 21:00 07/20/19 17:59 07/05/19 21:35 Lisinopril (PriniviL) 20 mg DAILY ORAL 07/05/19 09:00 08/02/19 08:59 07/05/19 09:25 Loperamide HCl (Imodium) 2 mg Q4H PRN ORAL Diarrhea 07/02/19 19:00 08/01/19 18:59 Magnesium Hydroxide (Mom) 30 ml HSPRN PRN ORAL Constipation 07/02/19 21:00 07/15/19 20:59 Metoprolol Tartrate (Lopressor) 25 mg Q12HR ORAL 07/02/19 21:00 07/20/19 08:59 07/05/19 21:34 Ondansetron HCl (Zofran) 4 mg Q6H PRN IVP Nausea & Vomiting 07/02/19 19:00 07/24/19 18:59 Pantoprazole (Protonix) 40 mg DAILY ORAL 07/03/19 09:00 07/28/19 08:59 07/05/19 09:25 Spironolactone (Aldactone) 12.5 mg DAILY ORAL 07/03/19 09:00 08/01/19 08:59 07/05/19 09:25 Last 24 Hour Vital Signs Date Time Temp Pulse Resp B/P (MAP) Pulse Ox O2 Delivery O2 Flow Rate FiO2 07/05/19 21:34 84 154/74 07/05/19 21:00 Room Air 07/05/19 20:00 97.9 84 18 154/74 (100) 92 07/05/19 16:00 98.3 87 19 140/82 (101) 97 07/05/19 12:00 98.6 84 18 139/80 (99) 96 07/05/19 09:25 140/75 07/05/19 09:25 80 140/75 07/05/19 09:24 80 140/75 07/05/19 09:00 Room Air 07/05/19 08:00 95 18 91 Room Air 07/05/19 08:00 98.3 80 18 140/75 (96) 96 07/05/19 04:00 98.2 83 18 143/70 (94) 94 07/05/19 01:57 82 18 95 Room Air 07/05/19 00:00 97.9 82 18 150/72 (98) 95 07/04/19 21:04 86 151/72 07/04/19 21:00 Room Air 07/04/19 20:00 98.4 86 18 151/72 (98) 95 07/04/19 16:00 97.9 79 20 157/72 (100) 95 07/04/19 13:47 78 18 97 07/04/19 11:35 97.4 78 18 138/70 97 Room Air 07/04/19 11:25 76 18 129/66 100 Simple Mask 6 07/04/19 11:19 77 16 100 07/04/19 11:15 77 18 128/60 100 Simple Mask 6 07/04/19 11:10 78 18 115/60 100 Simple Mask 6 07/04/19 11:05 97.6 77 17 93/46 100 Simple Mask 6 07/04/19 09:01 85 159/71 07/04/19 09:00 85 159/71 07/04/19 09:00 Room Air 07/04/19 08:59 159/71 07/04/19 08:00 97.2 85 20 159/71 (100) 95 07/04/19 07:29 82 18 94 Room Air 21 07/04/19 04:00 98.0 87 18 145/66 (92) 94 07/04/19 00:00 98.2 80 20 149/69 (95) 97 Intake and Output 07/04/19 07/05/19 19:00 07:00 Intake Total 850 ml Output Total 800 ml 600 ml Balance 50 ml -600 ml Intake Oral 720 ml IV Total 130 ml Output Urine Total 800 ml 600 ml # Voids 1 # Bowel Movements 1 Labs Test 07/03/19 05:35 07/04/19 05:45 White Blood Count 8.0 K/UL (4.8-10.8) 7.6 K/UL (4.8-10.8) Red Blood Count 3.26 M/UL (4.70-6.10) 3.33 M/UL (4.70-6.10) Hemoglobin 9.3 G/DL (14.2-18.0) 9.6 G/DL (14.2-18.0) Hematocrit 27.9 % (42.0-52.0) 28.5 % (42.0-52.0) Mean Corpuscular Volume 86 FL (80-99) 86 FL (80-99) Mean Corpuscular Hemoglobin 28.6 PG (27.0-31.0) 28.8 PG (27.0-31.0) Mean Corpuscular Hemoglobin Concent 33.4 G/DL (32.0-36.0) 33.7 G/DL (32.0-36.0) Red Cell Distribution Width 12.9 % (11.6-14.8) 12.8 % (11.6-14.8) Platelet Count 148 K/UL (150-450) 136 K/UL (150-450) Mean Platelet Volume 7.9 FL (6.5-10.1) 8.4 FL (6.5-10.1) Neutrophils (%) (Auto) 79.0 % (45.0-75.0) 77.9 % (45.0-75.0) Lymphocytes (%) (Auto) 9.5 % (20.0-45.0) 9.0 % (20.0-45.0) Monocytes (%) (Auto) 8.3 % (1.0-10.0) 8.3 % (1.0-10.0) Eosinophils (%) (Auto) 1.3 % (0.0-3.0) 1.9 % (0.0-3.0) Basophils (%) (Auto) 1.9 % (0.0-2.0) 2.9 % (0.0-2.0) Sodium Level 141 MMOL/L (136-145) 143 MMOL/L (136-145) Potassium Level 3.3 MMOL/L (3.5-5.1) 3.5 MMOL/L (3.5-5.1) Chloride Level 108 MMOL/L (98-107) 108 MMOL/L (98-107) Carbon Dioxide Level 22 MMOL/L (21-32) 25 MMOL/L (21-32) Anion Gap 11 mmol/L (5-15) 10 mmol/L (5-15) Blood Urea Nitrogen 20 mg/dL (7-18) 23 mg/dL (7-18) Creatinine 1.4 MG/DL (0.55-1.30) 1.5 MG/DL (0.55-1.30) Estimat Glomerular Filtration Rate 49.7 mL/min (>60) 45.9 mL/min (>60) Glucose Level 123 MG/DL (74-106) 125 MG/DL (74-106) Calcium Level 7.9 MG/DL (8.5-10.1) 7.8 MG/DL (8.5-10.1) Prothrombin Time 10.7 SEC (9.30-11.50) Prothromb Time International Ratio 1.0 (0.9-1.1) Activated Partial Thromboplast Time 26 SEC (23-33) Height (Feet): 5 Height (Inches): 5.00 Weight (Pounds): 239 Objective PE General Appearance: no apparent distress, alert HEENT: atraumatic, anicteric Neck: normal alignment, supple Respiratory/Chest: lungs clear, normal breath sounds, no respiratory distress Cardiovascular/Chest: normal rate, regular rhythm Abdomen: non tender, soft, no organomegaly Extremities: non-tender, normal inspection Skin Exam: warm/dry, cyanotic Neurologic: alert Gu: ++ Kana Goyal MD Jul 05, 2019 23:17
[2019-07-06] VITALS: BP 151/67
[2019-07-06 04:00] VITALS: BP 142/70
[2019-07-06] MEDS: NovoLOG Insulin Flexpen SUBQ SCH ×4 (06:30→22:26)
[2019-07-06 07:19] LABS: ANION GAP 6 mmol/L (5-15); BLOOD UREA NITROGEN 25 mg/dL (7-18); CALCIUM 8.4 MG/DL (8.5-10.1); CARBON DIOXIDE 28 MMOL/L (21-32); CHLORIDE 109 MMOL/L (98-107); CREATININE 1.4 MG/DL (0.55-1.30); POTASSIUM 3.8 MMOL/L (3.5-5.1); SODIUM 143 MMOL/L (136-145)
--- NOTE | 2019-07-06 07:32 | NUR ---
NURSE NOTES: Patient awake, alert x4; on room air, no sing of distress and shortness of breath; patient sitting high badillo position and eating breakfast; IV Left-Hand 20G TKO; Rivero Cath in place, drains dark brown urine; wound dressings dry and intact; side rails up x2, breaks engaged, bed at lowest position, call light within reach; will keep monitoring.
[2019-07-06 08:00] VITALS: BP 140/73
--- NOTE | 2019-07-06 08:07 | NUR ---
HAND-OFF: Report given to GANGA Landis.
[2019-07-06] MEDS: Spironolactone 25mg tab ORAL SCH (08:58)
[2019-07-06] MEDS: Aspirin Baby 81mg ORAL SCH (08:58)
[2019-07-06] MEDS: Pancrelipase Dr Cap ORAL SCH ×3 (08:58→17:48)
[2019-07-06] MEDS: Lisinopril 20mg tab ORAL SCH (08:58)
--- NOTE | 2019-07-06 11:44 | Nephrology Progress Note ---
Assessment/Plan Plan #acute kidney injury - on baseline CKD- Fena 0.4% suggestive of pre-renal aztemia- however UA with sediments and RBC concerning for developing ATN- patient with baseline diabetic nephropathy -Cr uptrended today #sepsis #acute pancreatitis- improved # Hypokalemia, hypopmagnesemia - repleted #lactic acidosis- improved #HTN- stable #DM- controlled #NSTEMI #hypernatremia - improved #eliana on CKD - baseline Cr in mid to high 1s- now worsening in the setting of sepsis and possibly vanco induced #metabolic acidosis - due to renal insufficiency - monitor Cr- stable - dc sodium bicarb 650mg TID - aldactone 12.5mg daily - lisinopril 20mg daily - check BMP in am #sepsis - monitor WBC - GI eval - s/p EUS per GI (07/03) with gastritis, pancreatic pseudocyst seen. #troponemia - heparin on hold for thrombocytopenia - HIT? - cardiology eval - stress test neg - aldactone 12.5mg daily - lisinopril 10mg daily #HTN - aldactone 12.5mg daily - lisinopril 20mg daily -increase amldipine to 10mg daily - metop 25mg BID #DM - hold metformin - ISS Subjective Subjective Breathing stable today s/p EUS per GI (07/03) with gastritis, pancreatic pseudocyst seen. no abdominal pain Stress test neg BP slightly up Objective Objective Last 24 Hour Vital Signs Date Time Temp Pulse Resp B/P (MAP) Pulse Ox O2 Delivery O2 Flow Rate FiO2 07/06/19 09:00 Room Air 07/06/19 08:58 140/73 07/06/19 08:58 80 140/73 07/06/19 08:58 80 140/73 07/06/19 08:00 97.8 80 18 140/73 (95) 93 07/06/19 07:00 90 18 92 Room Air 21 07/06/19 04:00 97.4 76 18 142/70 (94) 92 07/06/19 00:00 97.4 73 18 151/67 (95) 98 07/05/19 21:34 84 154/74 07/05/19 21:00 Room Air 07/05/19 20:00 97.9 84 18 154/74 (100) 92 07/05/19 19:00 84 18 94 Room Air 21 07/05/19 16:00 98.3 87 19 140/82 (101) 97 07/05/19 12:00 98.6 84 18 139/80 (99) 96 Intake and Output 07/05/19 07/06/19 19:00 07:00 Intake Total 860 ml Output Total 1200 ml 850 ml Balance -340 ml -850 ml Intake Oral 860 ml Output Urine Total 1200 ml 850 ml # Bowel Movements 1 Laboratory Tests 07/06/19 06:00: Sodium Level 143, Potassium Level 3.8, Chloride Level 109H, Carbon Dioxide Level 28, Anion Gap 6, Blood Urea Nitrogen 25H, Creatinine 1.4H, Estimat Glomerular Filtration Rate 49.7, Glucose Level 144H, Calcium Level 8.4L Height (Feet): 5 Height (Inches): 5.00 Weight (Pounds): 242 Objective General Appearance: Alert - no distress Lines, tubes and drains: peripheral HEENT: normocephalic, atraumatic Neck: non-tender, normal alignment Respiratory/Chest: chest wall non-tender, lungs clear, normal breath sounds Cardiovascular/Chest: normal rate, regular rhythm Abdomen: normal bowel sounds, non tender, soft Extremities: non-tender, normal inspection Skin Exam: normal pigmentation, no diaphoresis Gerson Salgado M.D. Jul 06, 2019 11:44
[2019-07-06 12:00] VITALS: BP 148/80
--- NOTE | 2019-07-06 12:20 | Hematology/Onc Progress Note ---
Assessment/Plan Assessment/Plan Assessment and recs: # Leukocytosis with hx of infection, hx klebsiella bacteremia, sepsis, leukocytosis, infected pancreatic pseudocyst, ? aspiration pna/HCAP vs atx, arf , CT abdomen and pelvis noted -> ct a/p reviewed --> wbc 15-->30-->24-->13.4-->10-->9.3-->7.6 --> on vanc/zosyn-->zosyn-->vanc-->off abx # 10.7 cm unilocular cystic structure in the left upper quadrant retroperitoneal , corresponding to findings reported on recent CT scan. Most likely represents a pancreatic pseudocyst. --> continue to monitor as per gi --> repeat us or ct in short order, weeks to months to re-eval --> repeat ct showed mild enlargement of cyst/mass, will need further repeat imaging --> may need indium scan # Thrombocytopenia - potential causes multifactorial, in this case due to sepsis , less likely due to heparin --> Hep panel and HIV are negative --> US abd to evaluate for cirrhosis and hsm ordered and none noted --> Peripheral smear ordered to evaluate for blasts /schistocytes --> abx and other meds have been reviewed --> ok for ppx if plt >50k w/ either heparin or lovenox --> Transfuse if Plt < 20k and fever, or if Plt < 10k without fever --> plt trend 41-->49k-->63k-->110-->208-->148-->136 # DM, ? history of CVA who presented to [facility] ED with nausea,vomiting. --> a1c goal <8, accuchecks qac/qhs # Septic shock, POA, possible biliary source --> cont ICU level of care --> cont IV hydration --> on abx, as per pulm/cc # Acute hypoxic resp failure without hypercarbia --> Intermittent BiPAP --> continue inhaled bronchodilators # NSTEMI, peak trop of 2, likely due to demand ischemia --> Stop heparin due to thrombocytopenia --> duplex lower legs is neg --> HIT neg --> per cards # Acute kidney injury on CKD, possible ATN --> Nephrology following # Acute pancreatitis --> hydration # HTN --> cont to hold BP meds # DM type 2 --> ISS # Dvt ppx scds Appreciate consultation and syndey Rn Subjective Allergies: Coded Allergies: No Known Allergies (Unverified , 06/02/19) Subjective 06/20: awake and alert, no overnight events, v mask 06/22: plts remain low, in the 40s, off anticaog, [place] rn, pending labs 06/23: is on broad spectrum abx, fluncon, ctx, flagyl, vanc, no f/c 06/24: on tele, no overnight events, wbc at 29.8, plt count improved 06/25: ct a/p is still pending given elev wbc, off pressors in tele 06/26: wbc continues to be elev, ct a/p reviewed, potentially smaller pseudocyst, may need indium scan 06/28: s/p wbc scan, on tele, no acute distress, nc 06/29: no bleeding or chills, labs re noted, no night sweats, cbc and bmp ordered 06/30: no events, less diarrhea with iimmdium given, c. diff is neg, labs ordered 07/01: sleeping comfortably, no events, wbc has improved, cbc pending 07/02: alert, no overnight events, bp on high end this am, no resp distress 07/03: no acute events, h/h stable, inr 1, on room air 07/04: no events, no night sweats 07/05: awake, no cbc, bp on high end, on room air Objective Objective Current Medications Medications (Trade) Dose Ordered Sig/Arley Route PRN Reason Start Time Stop Time Status Last Admin Dose Admin Acetaminophen (Tylenol) 650 mg Q4H PRN ORAL Mild Pain (Pain Scale 1-3) 07/02/19 19:00 07/15/19 18:59 Albumin Human 50 ml @ 50 mls/hr DAILYPRN PRN IV For hypotension 07/02/19 19:00 08/01/19 18:59 Amlodipine Besylate (Norvasc) 10 mg DAILY ORAL 07/03/19 09:00 07/24/19 08:59 07/06/19 08:58 Amylase/Lipase/ Protease (Zenpep) 3 ea THREE TIMES A DAY ORAL 07/03/19 09:00 07/26/19 13:59 07/06/19 12:15 Aspirin (ASA) 81 mg DAILY ORAL 07/03/19 09:00 07/20/19 08:59 07/06/19 08:58 Bisacodyl (Dulcolax) 10 mg DAILYPRN PRN RECTAL Constipation 07/02/19 19:00 07/24/19 18:59 Dextrose (Dextrose 50%) 25 ml Q30M PRN IV Hypoglycemia 07/02/19 19:15 07/16/19 18:05 Dextrose (Dextrose 50%) 50 ml Q30M PRN IV Hypoglycemia 07/02/19 19:15 07/16/19 18:05 Insulin Aspart (NovoLOG) AC+HS SUBQ 07/02/19 21:00 07/20/19 17:59 07/06/19 12:16 Lisinopril (PriniviL) 20 mg DAILY ORAL 07/05/19 09:00 08/02/19 08:59 07/06/19 08:58 Loperamide HCl (Imodium) 2 mg Q4H PRN ORAL Diarrhea 07/02/19 19:00 08/01/19 18:59 Magnesium Hydroxide (Mom) 30 ml HSPRN PRN ORAL Constipation 07/02/19 21:00 07/15/19 20:59 Metoprolol Tartrate (Lopressor) 25 mg Q12HR ORAL 07/02/19 21:00 07/20/19 08:59 07/06/19 08:58 Ondansetron HCl (Zofran) 4 mg Q6H PRN IVP Nausea & Vomiting 07/02/19 19:00 07/24/19 18:59 Pantoprazole (Protonix) 40 mg DAILY ORAL 07/03/19 09:00 07/28/19 08:59 07/06/19 08:58 Spironolactone (Aldactone) 12.5 mg DAILY ORAL 07/03/19 09:00 08/01/19 08:59 07/06/19 08:58 Last 24 Hour Vital Signs Date Time Temp Pulse Resp B/P (MAP) Pulse Ox O2 Delivery O2 Flow Rate FiO2 07/06/19 09:00 Room Air 07/06/19 08:58 140/73 07/06/19 08:58 80 140/73 07/06/19 08:58 80 140/73 07/06/19 08:00 97.8 80 18 140/73 (95) 93 07/06/19 07:00 90 18 92 Room Air 21 07/06/19 04:00 97.4 76 18 142/70 (94) 92 07/06/19 00:00 97.4 73 18 151/67 (95) 98 07/05/19 21:34 84 154/74 07/05/19 21:00 Room Air 07/05/19 20:00 97.9 84 18 154/74 (100) 92 07/05/19 19:00 84 18 94 Room Air 21 07/05/19 16:00 98.3 87 19 140/82 (101) 97 07/05/19 12:00 98.6 84 18 139/80 (99) 96 07/05/19 09:25 140/75 07/05/19 09:25 80 140/75 07/05/19 09:24 80 140/75 07/05/19 09:00 Room Air 07/05/19 08:00 95 18 91 Room Air 21 07/05/19 08:00 98.3 80 18 140/75 (96) 96 07/05/19 04:00 98.2 83 18 143/70 (94) 94 07/05/19 01:57 82 18 95 Room Air 21 07/05/19 00:00 97.9 82 18 150/72 (98) 95 07/04/19 21:04 86 151/72 07/04/19 21:00 Room Air 07/04/19 20:00 98.4 86 18 151/72 (98) 95 07/04/19 16:00 97.9 79 20 157/72 (100) 95 07/04/19 13:47 78 18 97 Intake and Output 07/05/19 07/06/19 19:00 07:00 Intake Total 860 ml Output Total 1200 ml 850 ml Balance -340 ml -850 ml Intake Oral 860 ml Output Urine Total 1200 ml 850 ml # Bowel Movements 1 Labs Test 07/04/19 05:45 07/06/19 06:00 White Blood Count 7.6 K/UL (4.8-10.8) Red Blood Count 3.33 M/UL (4.70-6.10) Hemoglobin 9.6 G/DL (14.2-18.0) Hematocrit 28.5 % (42.0-52.0) Mean Corpuscular Volume 86 FL (80-99) Mean Corpuscular Hemoglobin 28.8 PG (27.0-31.0) Mean Corpuscular Hemoglobin Concent 33.7 G/DL (32.0-36.0) Red Cell Distribution Width 12.8 % (11.6-14.8) Platelet Count 136 K/UL (150-450) Mean Platelet Volume 8.4 FL (6.5-10.1) Neutrophils (%) (Auto) 77.9 % (45.0-75.0) Lymphocytes (%) (Auto) 9.0 % (20.0-45.0) Monocytes (%) (Auto) 8.3 % (1.0-10.0) Eosinophils (%) (Auto) 1.9 % (0.0-3.0) Basophils (%) (Auto) 2.9 % (0.0-2.0) Prothrombin Time 10.7 SEC (9.30-11.50) Prothromb Time International Ratio 1.0 (0.9-1.1) Activated Partial Thromboplast Time 26 SEC (23-33) Sodium Level 143 MMOL/L (136-145) 143 MMOL/L (136-145) Potassium Level 3.5 MMOL/L (3.5-5.1) 3.8 MMOL/L (3.5-5.1) Chloride Level 108 MMOL/L (98-107) 109 MMOL/L (98-107) Carbon Dioxide Level 25 MMOL/L (21-32) 28 MMOL/L (21-32) Anion Gap 10 mmol/L (5-15) 6 mmol/L (5-15) Blood Urea Nitrogen 23 mg/dL (7-18) 25 mg/dL (7-18) Creatinine 1.5 MG/DL (0.55-1.30) 1.4 MG/DL (0.55-1.30) Estimat Glomerular Filtration Rate 45.9 mL/min (>60) 49.7 mL/min (>60) Glucose Level 125 MG/DL (74-106) 144 MG/DL (74-106) Calcium Level 7.8 MG/DL (8.5-10.1) 8.4 MG/DL (8.5-10.1) Height (Feet): 5 Height (Inches): 5.00 Weight (Pounds): 242 Objective PE General Appearance: no apparent distress, alert HEENT: atraumatic, anicteric Neck: normal alignment, supple Respiratory/Chest: lungs clear, normal breath sounds, no respiratory distress Cardiovascular/Chest: normal rate, regular rhythm Abdomen: non tender, soft, no organomegaly Extremities: non-tender, normal inspection Skin Exam: warm/dry, cyanotic Neurologic: alert Gu: ++ Kana Goyal MD Jul 06, 2019 12:20
--- NOTE | 2019-07-06 12:51 | Surgery Progress Note ---
Surgery Progress Note Subjective Additional Comments marcelo cute events comfortable working with pt ambulatory now will sit in chair today Objective Last 24 Hour Vital Signs Date Time Temp Pulse Resp B/P (MAP) Pulse Ox O2 Delivery O2 Flow Rate FiO2 07/06/19 12:00 98.4 86 18 148/80 (102) 95 07/06/19 09:00 Room Air 07/06/19 08:58 140/73 07/06/19 08:58 80 140/73 07/06/19 08:58 80 140/73 07/06/19 08:00 97.8 80 18 140/73 (95) 93 07/06/19 07:00 90 18 92 Room Air 21 07/06/19 04:00 97.4 76 18 142/70 (94) 92 07/06/19 00:00 97.4 73 18 151/67 (95) 98 07/05/19 21:34 84 154/74 07/05/19 21:00 Room Air 07/05/19 20:00 97.9 84 18 154/74 (100) 92 07/05/19 19:00 84 18 94 Room Air 21 07/05/19 16:00 98.3 87 19 140/82 (101) 97 I&O Intake and Output 07/05/19 07/06/19 19:00 07:00 Intake Total 860 ml Output Total 1200 ml 850 ml Balance -340 ml -850 ml Intake Oral 860 ml Output Urine Total 1200 ml 850 ml # Bowel Movements 1 Dressing: other Wound: other Drains: other Cardiovascular: RSR Respiratory: decreased breath sounds Abdomen: soft, non-tender, present bowel sounds, non-distended Extremities: no edema, no tenderness, no cyanosis Laboratory Tests Test 07/06/19 06:00 Sodium Level 143 MMOL/L (136-145) Potassium Level 3.8 MMOL/L (3.5-5.1) Chloride Level 109 MMOL/L (98-107) H Carbon Dioxide Level 28 MMOL/L (21-32) Anion Gap 6 mmol/L (5-15) Blood Urea Nitrogen 25 mg/dL (7-18) H Creatinine 1.4 MG/DL (0.55-1.30) H Estimat Glomerular Filtration Rate 49.7 mL/min (>60) Glucose Level 144 MG/DL (74-106) H Calcium Level 8.4 MG/DL (8.5-10.1) L Plan Problems: (1) Sacral decubitus ulcer Assessment & Plan: Patient identified to have a stage II sacral decubitus ulcer as well as incontinence associated dermatitis in the surrounding areas. Patient with diarrhea and sometimes sits for prolonged period times in stool. He has been changes frequently as possible by nursing staff and his been instructed to let staff know when incontinence so that they can assist him in changing. A is seen at bedside today with family available. We discussed current status and reviewed the wound together. We evaluated it cleaned and applied new dressings. We discussed the formation the etiology and the prognosis. Patient is able to move on his side on his own and is able to move in bed. He states he lays comfortably on his back but is instructed to return as much as possible. I have told him that the nursing staff and even myself and my team will assist him with turning as much as possible but given the fact that he is able to move on his own it would be strongly advised to turn as often as possible to alleviate pressure on his wound or develop new wounds. I explained to them that in laying in 1 position for prolonged period time can cause worsening cubitus ulcers or new ulcers to form. Long session was had with the patient and family and care plan was initiated. Patient is very amenable to care plan and cooperative. We will continue to monitor while inpatient and ensure improvemen Pt presents with two partial thickness pressure injuries R and L buttocks with surrounding Moisture Associated Skin Damage Partial thickness pressure injury R buttocks (L)2.2cm x (W)1cm. Base of wound is moist and viable with loose skin flap along edges. No odor or exudate. Periwound erythematous with denuded skin. Partial thickness pressure injury L buttocks. Base of wound is moist and viable. Edges are macerated. Non-blanching erythema with moisture denudement periwound.No exudate noted(L)2cm x (W)3cm.Scrotum erythematous with scattered satellite lesions at base of Scrotum. Both heels are boggy with non-blanching erythema. Pt denied tenderness when each heel individually palpated. Pt noted to be incontinent of loose B.M at start of visit. Pt also demonstrated ability to reposition self in bed but according to staff on unit pt is non- compliant and lacks motivation. PT informed of pressure injuries R and L buttocks , erythematous Scrotum and risks for further Skin decline. Pt educated on comorbidities that can contribute to wounds declining. Instructed pt to call for asst with toileting and encouraged to frequently reposition ,at least hourly while in bed. Pt declined to respond to verbal instructions. Spouse visited and updated on skin breakdown . Spouse also educated of risks for further skin breakdown if pt continues to be non-compliant with repositioning and toileting. I had a long discussion at bedside today 06/30/2019 with the patient and his . I explained to patient the above findings again and we reviewed the decubitus formation and goals and plans of care for prevention as well as improvement. I have asked patient to help mobilize himself and he was able to turn to his left side following to the right side. Given his size it does take a little bit of effort but it is possible and he is able to do it on his own. I explained to patient how important it is to continue current side specially as he can do it on its own. Patient states he just wants to relax and be comfortable on his back. I explained to them how the above findings of formed and how they may worsen if he continues to do so. Patient is clearly competent and expresses understanding. I explained the patient that it would be very important for him to continue with the plan of care that we have discussed. Patient states that it should be someone at all times to help him with these things and explained to patient that nursing staff and myself are willing and helping as much as necessary but he is capable and we strongly recommend that since he has ability it would be strongly recommended for him to offload pressure as much as possible. Tx.Plan: Apply Moisture Barrier Paste to R and L buttocks. Cover with Optifoam drsg. Change every 3 days and prn. Apply Moisture Barrier Paste to Scrotum with each incontinence care. Encourage to reposition self at least hourly while in bed. Apply Cavilon Skin Barrier to each heels. Cover each heel with OPtifoam drsg. Change every 7 days and prn. Off-load heels with Pillow. (2) Incontinence associated dermatitis (3) Left upper quadrant abdominal mass Assessment & Plan: Telemetry pancreatic mass cystic large with infiltration around it worsening on recent CT. Discussed with GI and agree will need EUS but given elevated troponins and current cardiac status will await clearance and improvement prior to proceeding with EUS. The myocardial perfusion scan demonstrates large perfusion defect involving the inferior wall and apex consistent with a myocardial infarct. This extends into the inferolateral segment. IMPRESSION: Inferior and inferolateral wall infarct including the apex. No definite evidence of myocardial ischemia. Note: The study was limited because of difficulty with gating due to the patient 's irregular heart rhythm. LVEF also could not be calculated. (4) Acute pancreatitis Assessment & Plan: Lungs: Small posterior basilar pleural effusions are demonstrated. Consolidation versus atelectasis involving the lung bases bilaterally. Similar appearance on the prior occasion.. Liver: Unremarkable Gallbladder/biliary system: Gallbladder is absent. No biliary ductal dilatation seen.. Spleen: Unremarkable Pancreas: Pancreas is atrophic. Once again there is a large approximately 10 cm well-circumscribed cystic mass in the left upper quadrant associated with the tail the pancreas. This has been previously described and was seen on the last 2 CT examinations. This cyst is questionably slightly smaller. There is however moderately increased soft tissue stranding in the area surrounding the cyst anteriorly indicative of inflammation. In addition part of the splenic flexure which abuts the cyst and traverses the area of inflammation shows focal dilatation likely a localized inflammatory response or localized ileus. The degree of inflammation has significantly increased and is worse than both the prior occasions on 06/20/2019 or on 06/15/2019. In addition the degree of anasarca has increased. There is a small amount of free fluid within the abdomen which has also increased slightly since the last study. Kidneys/Bladder: No definite stone or hydronephrosis are identified. There is a probable right renal cyst again noted. The urinary bladder is nondistended. Contreras catheter in good position. Adrenal glands: Unremarkable Bowel: Unremarkable. Aorta/IVC: Aortoiliac calcifications are noted consistent with atherosclerotic disease. Peritoneum: There is mild free fluid present within the peritoneal cavity.. Bones: There is narrowing of intervertebral discs and accompanying endplate osteophyte formation. Hypertrophied facet joints also demonstrated. Generalized osteopenia noted. Moderate osteoarthritis of both hips demonstrated. IMPRESSION: Moderate increased inflammation surrounding a 10 cm cystic mass in the left upper quadrant. The cystic mass may be slightly smaller than on the previous CT examinations performed 06/20/2019 and 06/15/2019. 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 Cystic neoplasm is not excluded. Persistent small bilateral pleural effusions and underlying consolidation/atelectasis. Trace ascites. Worsening anasarca. Status post cholecystectomy. Arterial vascular disease. Additional Comments improving overall contreras clearing up Benitez Sheppard Jul 06, 2019 12:51
[2019-07-06 16:00] VITALS: BP 144/77
--- NOTE | 2019-07-06 16:37 | General Progress Note ---
Assessment/Plan Problem List: (1) Renal failure ICD Codes: N19 - Unspecified kidney failure SNOMED: 83678090 Qualifiers: Qualified Codes: N17.9 - Acute kidney failure, unspecified (2) Transient hypotension ICD Codes: I95.9 - Hypotension, unspecified SNOMED: 38429947977697 (3) Sepsis ICD Codes: A41.9 - Sepsis, unspecified organism SNOMED: 72753886 Qualifiers: Qualified Codes: A41.9 - Sepsis, unspecified organism; R65.21 - Severe sepsis with septic shock; N17.9 - Acute kidney failure, unspecified (4) Hypoxia ICD Codes: R09.02 - Hypoxemia SNOMED: 186162114 Status: stable Assessment/Plan: 73 y/o M with PMH HTN, IDDM, ? history of CVA who presented [place] [facility] [place],vomiting. On admission pt w/acute respiratory failure, initially admitted to ICU, was placed on BiPAP, pt improved and now on NC. Pt was found to have Klebsiella bacteremia, ID consulted and pt was started on zosyn and zyvox. WBC's elevated on 06/25 for which repeat BCx were drawn which are negative at this time. Pt w/elevated lipase, found to have acute pancreatitis, CT abd revealed pancreatic pseudocyst for which GI was consulted, s/p EUS. stress test showing nonreversible ischemia. #Klebsiella bacteremia #Leukocytosis - resolved #? infected pancreatic pseudocyst, ? aspiration pna/HCAP vs atx, arf -BCx on admission pt was found to be in septic shock, now resolved, BCx + for klebsiella bacteremia -BCx 3/ NGTD -BCx / NGTD -UCx 3/ NGTD -on 06/25 pt w/leukocytosis, repeat BCx 3/4 NGTD -CT A/P on 06/25: with mild improvement of pseudocyst. no abscess or acute pathology identified. -indium scan negative -s/p abx per ID. -Plan for d/c to SNF/ARU. Will d/w CM on Sunday #Chronic systolic CHF, HFrEF 40% TTE with EF ~40% Continue MTP 25 BID Cardiology following started on Aldactone Stress test without reversible ischemia #acute hypoxic resp failure without hypercarbia - stable off BiPAP continue inhaled bronchodilators Pulm/CCM following bipap prn and QHS - patient noncompliant #NSTEMI, peak trop of 2, likely due to demand ischemia was initially placed on heparin on admission, now off heparin Cardiology following #acute kidney injury on CKD, possible ATN - downtrending s/p IV hydration cont. to monitor BMP avoid nephrotoxic meds scr with improvement Nephrology following #acute pancreatitis #Pancreatic Pseudocyst low fat diet PPI Pancreaolipase s/p EUS per GI (07/03) with gastritis, pancreatic pseudocyst seen. #Thrombocytopenia - resolved #Rule out HIT etiology likely multifactorial, likely due to sepsis cont to monitor daily CBC Hematology following - ok for DVT ppx w/heparin or lovenox when plts >50k #Hypokalemia, hypomagnesemia - resolved replaced, cont. to monitor, replace PRN #lactic acidosis #HTN cont Norvasc #DM type 2 ISS #Septic shock - resolved on admission pt was in ICU, now improved off pressors cont. to monitor VTE PPx - SCDs Full Code Dispo: Spoke with patient case coordinator regarding possible ARU admission vs SNF Time spent: 38 mins, >50% on counseling and coordination of care. Subjective Date patient seen: Jul 06, 2019 Constitutional: Denies: no symptoms, chills, diaphoresis, fever, malaise, weakness, other HEENT: Denies: no symptoms, eye pain, blurred vision, tearing, double vision, ear pain, ear discharge, nose pain, nose congestion, throat pain, throat swelling, mouth pain, mouth swelling, other Cardiovascular: Denies: no symptoms, chest pain, edema, irregular heart rate, lightheadedness, palpitations, syncope, other Respiratory: Denies: no symptoms, cough, orthopnea, shortness of breath, SOB with excertion, SOB at rest, sputum, stridor, wheezing, other Gastrointestinal/Abdominal: Denies: no symptoms, abdomen distended, abdominal pain, black stools, tarry stools, blood in stool, constipated, diarrhea, difficulty swallowing, nausea, poor appetite, poor fluid intake, rectal bleeding , vomiting, other Genitourinary: Denies: no symptoms, burning, discharge, frequency, flank pain, hematuria, incontinence, pain, urgency, other Neurologic/Psychiatric: Denies: no symptoms, anxiety, depressed, emotional problems, headache, numbness, paresthesia, pre-existing deficit, seizure, tingling, tremors, weakness, other Endocrine: Denies: no symptoms, excessive sweating, flushing, intolerance to cold, intolerance to heat, increased hunger, increased thirst, increased urine, unexplained weight gain, unexplained weight loss, other Hematologic/Lymphatic: Denies: no symptoms, anemia, easy bleeding, easy bruising, other Allergies: Coded Allergies: No Known Allergies (Unverified , 06/02/19) Subjective resting in chair, at bedside. denies any f/c, n/v, abdominal pain. ambulating little bit with walker. Objective Last 24 Hour Vital Signs Date Time Temp Pulse Resp B/P (MAP) Pulse Ox O2 Delivery O2 Flow Rate FiO2 07/06/19 16:00 98.0 74 18 144/77 (99) 95 07/06/19 12:00 98.4 86 18 148/80 (102) 95 07/06/19 09:00 Room Air 07/06/19 08:58 140/73 07/06/19 08:58 80 140/73 07/06/19 08:58 80 140/73 07/06/19 08:00 97.8 80 18 140/73 (95) 93 07/06/19 07:00 90 18 92 Room Air 21 07/06/19 04:00 97.4 76 18 142/70 (94) 92 07/06/19 00:00 97.4 73 18 151/67 (95) 98 07/05/19 21:34 84 154/74 07/05/19 21:00 Room Air 07/05/19 20:00 97.9 84 18 154/74 (100) 92 07/05/19 19:00 84 18 94 Room Air 21 Intake and Output 07/05/19 07/06/19 19:00 07:00 Intake Total 860 ml Output Total 1200 ml 850 ml Balance -340 ml -850 ml Intake Oral 860 ml Output Urine Total 1200 ml 850 ml # Bowel Movements 1 Laboratory Tests 07/06/19 06:00: Sodium Level 143, Potassium Level 3.8, Chloride Level 109H, Carbon Dioxide Level 28, Anion Gap 6, Blood Urea Nitrogen 25H, Creatinine 1.4H, Estimat Glomerular Filtration Rate 49.7, Glucose Level 144H, Calcium Level 8.4L Height (Feet): 5 Height (Inches): 5.00 Weight (Pounds): 242 General Appearance: no apparent distress, alert Neck: supple Cardiovascular: normal rate, regular rhythm Respiratory/Chest: lungs clear, normal breath sounds Abdomen: non tender, soft Ama Mallory M.D. Jul 06, 2019 16:37
--- NOTE | 2019-07-06 19:14 | NUR ---
HAND-OFF: Report given to GANGA Quiles. Endorsed to nurse that patient is risk for fall; cherise centeno quitly.
--- NOTE | 2019-07-06 19:37 | NUR ---
NURSE NOTES: Patient in bed and currently asleep. No signs of distress or SOB. IV intact and patent. Rivero in place and draining dark brown urine. Bed locked and in lowest position. Bed alarm activated. Call light in easy reach. Will follow plan of care.
--- NOTE | 2019-07-06 19:47 | Infectious Diseases Prog Note ---
Assessment/Plan Assessment/Plan 1. hx klebsiella bacteremia, sepsis, leukocytosis, ? infected pancreatic pseudocyst, ? aspiration pna/HCAP vs atx, arf, CT abdomen and pelvis noted, CT chest noted, chest x-ray noted - s/p zosyn and vancomycin/zyvox - monitor off abx, clinically stable so far - surveillance cultures negative - monitor labs, leukocytosis resolved - CT chest - with infiltrates - c.diff. - negative - indium scan negative - stable from ID standpoint - communicated with Dr. Mallory 2. Shock - improved, off pressors 3. Shortness of breath, hypoxia, on BiPAP - improved, off pressors 4. Pulmonary followup. 5. Acute renal failure. 6. Anemia. 7. Diabetes. 8. Hypertension. 9. Blood sugar and blood pressure treatment per primary care team. 10. Possible CVA history. 11. No known drug allergies. 12. Social history is negative. 13. Family history is noncontributory. 14. MAR was noted. 15. Case discussed with RN. 16. Continue treatment per primary consultants. 17. ICU care. 18. Skin care protocol. 19. Orders were noted and entered. 20. GI followup. Subjective Constitutional: Denies: fever HEENT: Denies: congestion Respiratory: Denies: shortness of breath Cardiovascular: Denies: chest pain Gastrointestinal/Abdominal: Denies: nausea, vomiting Genitourinary: Reports: other - + contreras Neurologic: Denies: headache Psychiatric: Denies: depression Skin: Denies: rash Hematologic: Denies: bleeding Musculoskeletal: Denies: pain Allergies: Coded Allergies: No Known Allergies (Unverified , 06/02/19) Objective Vital Signs Last 24 Hour Vital Signs Date Time Temp Pulse Resp B/P (MAP) Pulse Ox O2 Delivery O2 Flow Rate FiO2 07/06/19 16:00 98.0 74 18 144/77 (99) 95 07/06/19 12:00 98.4 86 18 148/80 (102) 95 07/06/19 09:00 Room Air 07/06/19 08:58 140/73 07/06/19 08:58 80 140/73 07/06/19 08:58 80 140/73 07/06/19 08:00 97.8 80 18 140/73 (95) 93 07/06/19 07:00 90 18 92 Room Air 21 07/06/19 04:00 97.4 76 18 142/70 (94) 92 07/06/19 00:00 97.4 73 18 151/67 (95) 98 07/05/19 21:34 84 154/74 07/05/19 21:00 Room Air 07/05/19 20:00 97.9 84 18 154/74 (100) 92 Height (Feet): 5 Height (Inches): 5.00 Weight (Pounds): 242 General Appearance: no acute distress HEENT: normocephalic, atraumatic, anicteric, mucous membranes moist Respiratory/Chest: lungs clear, normal breath sounds, no respiratory distress, no accessory muscle use, rhonchi - bilaterally Cardiovascular: normal rate, regular rhythm, no gallop/murmur Abdomen: normal bowel sounds, soft, non tender, no organomegaly, non distended Genitourinary: other - + contreras Extremities: no cyanosis Skin: no rash 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 Findings: Pulmonary vascular interstitial prominence demonstrated with cardiomegaly. There is a left-sided PICC line with the tip projected over the SVC. Old right clavicle fracture noted. IMPRESSION: Mild CHF CT abdomen and pelvis - 06/15/19 - Impression: Unilocular left upper quadrant cystic mass adjacent to the tail of pancreas and the greater curvature of the stomach. Favor pancreatic pseudocyst, particularly in view of evidence of pancreatic atrophy. However, cystic neoplasm of pancreatic, gastric, or other origin also possible. Consider contrast MRI for better characterization Small ventral hernia containing a single small loop of small bowel, no definite obstruction or strangulation related to such Mildly distended proximal small bowel with slow forward transit of ingested contrast. Suspect ileus or enteritis, although early/partial small bowel obstruction also possible. Correlate with clinical findings Mild distal soft tissue wall thickening, esophagitis possible. Correlate with clinical findings Bilateral basilar pulmonary parenchymal infiltrates versus edema, fairly extensive Cardiomegaly. Apparent bladder wall thickening. Probably an artifact of lack of distention, but cystitis also possible Nonspecific bilateral perinephric fat stranding. Suspect chronic although acute renal inflammation also possible Chest x-ray - 06/20/19 - Procedure: XRAY Chest 1v Indication: Cough Technique: One view of the chest Comparison: 06/19/2019 Findings: Right mid and lower lung infiltrates, generalized interstitial congestion persists, unchanged. Cardiomegaly again demonstrated. Impression: Unchanged, over one day, findings as above. CT abdomen and pelvis - 06/20/19 - Impression: Left upper quadrant cystic mass adjacent to the pancreatic tail and greater curvature the stomach, also reported previously, equivocally slightly larger currently. As previously described, most likely a pancreatic pseudocyst. Cystic pancreatic neoplasm also possible Trace ascites. This is a new finding since the prior exam. Bilateral pleural effusions and bilateral pulmonary parenchymal compressive atelectasis. Likewise a new finding since previous study Nonspecific bilateral perinephric fat stranding, also previously reported Bilateral basilar pulmonary interstitial and airspace edema Generalized edema of the subcutaneous fat Portable cardiomegaly Empty bladder with a Contreras catheter Degenerative spondylosis Chest x-ray - 06/24/19- Comparison: 06/12/2019 A single view chest radiograph was obtained. Findings: No definite infiltrate or pulmonary vascular congestion identified. The heart is enlarged. The aorta is mildly enlarged consistent with atherosclerotic vascular disease. The bones are osteopenic. There are thoracic vertebral enthesophytes at multiple levels. Impression: No acute disease 06/26/19 - CT scan of abdomen and pelvis: IMPRESSION: Moderate increased inflammation surrounding a 10 cm cystic mass in the left upper quadrant. The cystic mass may be slightly smaller than on the previous CT examinations performed 06/20/2019 and 06/15/2019. 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 Cystic neoplasm is not excluded. Persistent small bilateral pleural effusions and underlying consolidation/atelectasis. Trace ascites. Worsening anasarca. Status post cholecystectomy. Arterial vascular disease. Chest x-ray - 06/25/19 - Procedure: XRAY Chest 1v Indication: Dyspnea Comparison: 06/23/2019 A single view chest radiograph was obtained. Findings: Interstitial is mildly prominent but findings appear stable. There is suspected mild atelectasis right lung base. Please correlate clinically. Similar findings seen previously. The heart is enlarged. IMPRESSION: Mild right basal atelectasis. No change otherwise. CT chest: IMPRESSION: Bilateral lower lobe infiltrates and/or atelectasis. Mild to moderate bilateral pleural effusions. Minimal scarring in the left anterior upper lobe. Arterial vascular disease Cardiomegaly Status post cholecystectomy Indium scan - negative, report noted Microbiology Date/Time Source Procedure Growth Status 06/25/19 10:20 Blood Blood Culture - Final NO GROWTH AFTER 5 DAYS Complete 06/17/19 10:00 Sputum Induced Gram Stain - Final Complete 06/17/19 10:00 Sputum Induced Sputum Culture - Final NO GROWTH AFTER 48 HOURS Complete 06/30/19 18:00 Stool Clostridium difficile Toxin Assay - Final Complete 06/25/19 18:00 Indwelling Cath Urine Culture - Final NO GROWTH AFTER 48 HOURS Complete 06/22/19 21:00 Arm Left Catheter Tip Culture - Final NO GROWTH AFTER 4 DAYS Complete Labs Test 07/04/19 05:45 07/06/19 06:00 White Blood Count 7.6 K/UL (4.8-10.8) Red Blood Count 3.33 M/UL (4.70-6.10) Hemoglobin 9.6 G/DL (14.2-18.0) Hematocrit 28.5 % (42.0-52.0) Mean Corpuscular Volume 86 FL (80-99) Mean Corpuscular Hemoglobin 28.8 PG (27.0-31.0) Mean Corpuscular Hemoglobin Concent 33.7 G/DL (32.0-36.0) Red Cell Distribution Width 12.8 % (11.6-14.8) Platelet Count 136 K/UL (150-450) Mean Platelet Volume 8.4 FL (6.5-10.1) Neutrophils (%) (Auto) 77.9 % (45.0-75.0) Lymphocytes (%) (Auto) 9.0 % (20.0-45.0) Monocytes (%) (Auto) 8.3 % (1.0-10.0) Eosinophils (%) (Auto) 1.9 % (0.0-3.0) Basophils (%) (Auto) 2.9 % (0.0-2.0) Prothrombin Time 10.7 SEC (9.30-11.50) Prothromb Time International Ratio 1.0 (0.9-1.1) Activated Partial Thromboplast Time 26 SEC (23-33) Sodium Level 143 MMOL/L (136-145) 143 MMOL/L (136-145) Potassium Level 3.5 MMOL/L (3.5-5.1) 3.8 MMOL/L (3.5-5.1) Chloride Level 108 MMOL/L (98-107) 109 MMOL/L (98-107) Carbon Dioxide Level 25 MMOL/L (21-32) 28 MMOL/L (21-32) Anion Gap 10 mmol/L (5-15) 6 mmol/L (5-15) Blood Urea Nitrogen 23 mg/dL (7-18) 25 mg/dL (7-18) Creatinine 1.5 MG/DL (0.55-1.30) 1.4 MG/DL (0.55-1.30) Estimat Glomerular Filtration Rate 45.9 mL/min (>60) 49.7 mL/min (>60) Glucose Level 125 MG/DL (74-106) 144 MG/DL (74-106) Calcium Level 7.8 MG/DL (8.5-10.1) 8.4 MG/DL (8.5-10.1) Laboratory Tests Test 07/06/19 06:00 Sodium Level 143 MMOL/L (136-145) Potassium Level 3.8 MMOL/L (3.5-5.1) Chloride Level 109 MMOL/L (98-107) H Carbon Dioxide Level 28 MMOL/L (21-32) Anion Gap 6 mmol/L (5-15) Blood Urea Nitrogen 25 mg/dL (7-18) H Creatinine 1.4 MG/DL (0.55-1.30) H Estimat Glomerular Filtration Rate 49.7 mL/min (>60) Glucose Level 144 MG/DL (74-106) H Calcium Level 8.4 MG/DL (8.5-10.1) L Current Medications Medications (Trade) Dose Ordered Sig/Arley Route PRN Reason Start Time Stop Time Status Last Admin Dose Admin Acetaminophen (Tylenol) 650 mg Q4H PRN ORAL Mild Pain (Pain Scale 1-3) 07/02/19 19:00 07/15/19 18:59 Albumin Human 50 ml @ 50 mls/hr DAILYPRN PRN IV For hypotension 07/02/19 19:00 08/01/19 18:59 Amlodipine Besylate (Norvasc) 10 mg DAILY ORAL 07/03/19 09:00 07/24/19 08:59 07/06/19 08:58 Amylase/Lipase/ Protease (Zenpep) 3 ea THREE TIMES A DAY ORAL 07/03/19 09:00 07/26/19 13:59 07/06/19 17:48 Aspirin (ASA) 81 mg DAILY ORAL 07/03/19 09:00 07/20/19 08:59 07/06/19 08:58 Bisacodyl (Dulcolax) 10 mg DAILYPRN PRN RECTAL Constipation 07/02/19 19:00 07/24/19 18:59 Dextrose (Dextrose 50%) 25 ml Q30M PRN IV Hypoglycemia 07/02/19 19:15 07/16/19 18:05 Dextrose (Dextrose 50%) 50 ml Q30M PRN IV Hypoglycemia 07/02/19 19:15 07/16/19 18:05 Insulin Aspart (NovoLOG) AC+HS SUBQ 07/02/19 21:00 07/20/19 17:59 07/06/19 12:16 Lisinopril (PriniviL) 20 mg DAILY ORAL 07/05/19 09:00 08/02/19 08:59 07/06/19 08:58 Loperamide HCl (Imodium) 2 mg Q4H PRN ORAL Diarrhea 07/02/19 19:00 08/01/19 18:59 Magnesium Hydroxide (Mom) 30 ml HSPRN PRN ORAL Constipation 07/02/19 21:00 07/15/19 20:59 Metoprolol Tartrate (Lopressor) 25 mg Q12HR ORAL 07/02/19 21:00 07/20/19 08:59 07/06/19 08:58 Ondansetron HCl (Zofran) 4 mg Q6H PRN IVP Nausea & Vomiting 07/02/19 19:00 07/24/19 18:59 Pantoprazole (Protonix) 40 mg DAILY ORAL 07/03/19 09:00 07/28/19 08:59 07/06/19 08:58 Spironolactone (Aldactone) 12.5 mg DAILY ORAL 07/03/19 09:00 08/01/19 08:59 07/06/19 08:58 Pranay Wlaler MD Jul 06, 2019 19:47
[2019-07-06 20:00] VITALS: BP 166/73
[2019-07-07] VITALS: BP 155/67
[2019-07-07 04:00] VITALS: BP 151/76
[2019-07-07] MEDS: NovoLOG Insulin Flexpen SUBQ SCH ×2 (06:30→11:55)
--- NOTE | 2019-07-07 07:00 | NUR ---
NURSE NOTES: Handoff received from GANGA Leong. Patient received awake and alert and resting in bed, patient able to make needs known, no acute signs of distress noted. Patient has call light within reach, on room air. IV site is clean dry and intact, saline locked. Patient has contreras patent and draining. will continue to monitor patient.
--- NOTE | 2019-07-07 07:46 | NUR ---
HAND-OFF: Report given to GANGA Montes.
[2019-07-07 08:00] VITALS: BP 150/69
--- NOTE | 2019-07-07 08:30 | Cardiology Progress Note ---
Assessment/Plan Status: doing well, stable Assessment/Plan Assessment/Plan 73 year old man with HTN, IDDM, ? history of CVA who presented to [facility] with nausea,vomiting and hypertensive urgency and SOB -Empiric ABX and IV fluids -> WBC now normal, no fevers, cultures negative -BiPAP prn, continue pulmonary rehab/toilet/CPT, serial chest x ray -V/Q and LE US negative for thrombus, CXR with cardiomegaly and interstitial prominence -Echocardiogram with LVEF 40% and PA pressure 55 mmHG and elevated right atrial pressures. -Continue diuresis to lower filling pressures, recommend repeating limited Echocardiogram once dry weight achieved to re-evaluate pulmonary/filling pressures - ok to do as outpatient -Continue low dose metoprolol 25 mg BID for systolic dysfunction and titrate -Continue ACEi/ARB for afterload reduction -DASH diet -Stress test negative -Clear for d.c from cardiac standpoint Subjective Cardiovascular: Reports: no symptoms Respiratory: Reports: no symptoms Gastrointestinal/Abdominal: Reports: no symptoms Genitourinary: Reports: no symptoms Subjective No acute events, vitals stable, no CP/SOB, WBC resolved no fevers no complaints Objective Last 24 Hour Vital Signs Date Time Temp Pulse Resp B/P (MAP) Pulse Ox O2 Delivery O2 Flow Rate FiO2 07/07/19 07:36 87 18 93 Room Air 21 07/07/19 04:00 98.3 89 23 151/76 (101) 93 07/07/19 00:00 98.1 85 22 155/67 (96) 92 07/06/19 22:20 90 166/73 07/06/19 20:55 Room Air 07/06/19 20:00 98.1 90 24 166/73 (104) 95 07/06/19 16:00 98.0 74 18 144/77 (99) 95 07/06/19 12:00 98.4 86 18 148/80 (102) 95 07/06/19 09:00 Room Air 07/06/19 08:58 140/73 07/06/19 08:58 80 140/73 07/06/19 08:58 80 140/73 General Appearance: no apparent distress, alert EENT: PERRL/EOMI, normal ENT inspection, TMs normal, pharynx normal Neck: non-tender, normal alignment, supple, normal inspection, no JVD Rhythm: NSR Cardiovascular: normal peripheral pulses, normal rate, regular rhythm Respiratory/Chest: chest wall non-tender, lungs clear, normal breath sounds, no respiratory distress, no accessory muscle use Abdomen: normal bowel sounds, non tender, soft, no organomegaly, no mass Extremities: normal range of motion, non-tender, normal inspection, no calf tenderness, no swelling Neurologic: licensed guide II-XII grossly normal, no motor/sensory deficits Intake and Output 07/06/19 07/07/19 19:00 07:00 Intake Total 1220 ml 480 ml Output Total 1000 ml 1000 ml Balance 220 ml -520 ml Intake Oral 1220 ml 480 ml Output Urine Total 1000 ml 1000 ml # Bowel Movements 1 1 Paul Reed MD Jul 07, 2019 08:30
[2019-07-07] MEDS: Lisinopril 20mg tab ORAL SCH (09:04)
[2019-07-07] MEDS: Spironolactone 25mg tab ORAL SCH (09:05)
[2019-07-07] MEDS: Pancrelipase Dr Cap ORAL SCH ×2 (09:05→13:02)
[2019-07-07] MEDS: Aspirin Baby 81mg ORAL SCH (09:06)
--- NOTE | 2019-07-07 09:15 | General Progress Note ---
Assessment/Plan Problem List: (1) Acute kidney injury superimposed on CKD ICD Codes: N17.9 - Acute kidney failure, unspecified; N18.9 - Chronic kidney disease, unspecified SNOMED: 10235632, 520976150 (2) Sepsis ICD Codes: A41.9 - Sepsis, unspecified organism SNOMED: 26637883 Qualifiers: Qualified Codes: A41.9 - Sepsis, unspecified organism; R65.21 - Severe sepsis with septic shock; N17.9 - Acute kidney failure, unspecified (3) Elevated troponin ICD Codes: R79.89 - Other specified abnormal findings of blood chemistry SNOMED: 750580969, 362834726, 395227119 Status: doing well, stable Assessment/Plan: anemia esophagitis CM pancreatic pseudocyst CAD obesity sepsis on low fat diet s/p EUS repeat CT reviewed abx per id fu cardiology ad nephrology repeat labs in am ppi pancrelipase Subjective ROS Limited/Unobtainable: Yes Allergies: Coded Allergies: No Known Allergies (Unverified , 06/02/19) Objective Last 24 Hour Vital Signs Date Time Temp Pulse Resp B/P (MAP) Pulse Ox O2 Delivery O2 Flow Rate FiO2 07/07/19 09:06 94 150/69 07/07/19 09:05 94 150/69 07/07/19 09:04 150/69 07/07/19 09:00 Room Air 07/07/19 08:00 97.8 94 20 150/69 (96) 92 07/07/19 07:36 87 18 93 Room Air 21 07/07/19 04:00 98.3 89 23 151/76 (101) 93 07/07/19 00:00 98.1 85 22 155/67 (96) 92 07/06/19 22:20 90 166/73 07/06/19 20:55 Room Air 07/06/19 20:00 98.1 90 24 166/73 (104) 95 07/06/19 16:00 98.0 74 18 144/77 (99) 95 07/06/19 12:00 98.4 86 18 148/80 (102) 95 Intake and Output 07/06/19 07/07/19 19:00 07:00 Intake Total 1220 ml 480 ml Output Total 1000 ml 1000 ml Balance 220 ml -520 ml Intake Oral 1220 ml 480 ml Output Urine Total 1000 ml 1000 ml # Bowel Movements 1 1 Height (Feet): 5 Height (Inches): 5.00 Weight (Pounds): 243 General Appearance: alert EENT: normal ENT inspection Neck: supple Cardiovascular: normal rate Respiratory/Chest: decreased breath sounds Abdomen: normal bowel sounds, non tender, soft Extremities: non-tender Peyman Akbar MD Jul 07, 2019 09:15
--- NOTE | 2019-07-07 11:15 | NUR ---
PT WEEKLY PROGRESS NOTE Patient being seen by PT for therapeutic exercises, bed mobility training, transfer training, gait training and patient education. Patient demonstrating gradual gains in functional mobility and activity tolerance. Patient currently requires min/mod assist for bed mobility and transfers with FWW. Increased activity tolerance with ambulation to 60 ft x 2 with CGA and FWW. Patient will benefit from continued skilled inpatient PT intervention to increase level of functional mobility and activity tolerance.
[2019-07-07 12:00] VITALS: BP 138/74
--- NOTE | 2019-07-07 12:42 | Nephrology Progress Note ---
Assessment/Plan Plan #acute kidney injury - on baseline CKD- Fena 0.4% suggestive of pre-renal aztemia- however UA with sediments and RBC concerning for developing ATN- patient with baseline diabetic nephropathy -Cr uptrended today #sepsis #acute pancreatitis- improved # Hypokalemia, hypopmagnesemia - repleted #lactic acidosis- improved #HTN- stable #DM- controlled #NSTEMI #hypernatremia - improved #eliana on CKD - baseline Cr in mid to high 1s- now worsening in the setting of sepsis and possibly vanco induced #metabolic acidosis - due to renal insufficiency - monitor Cr- stable - dc sodium bicarb 650mg TID - aldactone 12.5mg daily - lisinopril 20mg daily - check BMP in am #sepsis - monitor WBC - GI eval - s/p EUS per GI (07/03) with gastritis, pancreatic pseudocyst seen. #troponemia - heparin on hold for thrombocytopenia - HIT? - cardiology eval - stress test neg - aldactone 12.5mg daily - lisinopril 10mg daily #HTN - aldactone 12.5mg daily - lisinopril 20mg daily -increase amldipine to 10mg daily - metop 25mg BID #DM - hold metformin - ISS Subjective Subjective Breathing stable today s/p EUS per GI (07/03) with gastritis, pancreatic pseudocyst seen. no abdominal pain Stress test neg BP slightly up Objective Objective Last 24 Hour Vital Signs Date Time Temp Pulse Resp B/P (MAP) Pulse Ox O2 Delivery O2 Flow Rate FiO2 07/07/19 12:00 98.0 111 20 138/74 (95) 92 07/07/19 09:06 94 150/69 07/07/19 09:05 94 150/69 07/07/19 09:04 150/69 07/07/19 09:00 Room Air 07/07/19 08:00 97.8 94 20 150/69 (96) 92 07/07/19 07:36 87 18 93 Room Air 21 07/07/19 04:00 98.3 89 23 151/76 (101) 93 07/07/19 00:00 98.1 85 22 155/67 (96) 92 07/06/19 22:20 90 166/73 07/06/19 20:55 Room Air 07/06/19 20:00 98.1 90 24 166/73 (104) 95 07/06/19 16:00 98.0 74 18 144/77 (99) 95 Intake and Output 07/06/19 07/07/19 19:00 07:00 Intake Total 1220 ml 480 ml Output Total 1000 ml 1000 ml Balance 220 ml -520 ml Intake Oral 1220 ml 480 ml Output Urine Total 1000 ml 1000 ml # Bowel Movements 1 1 Height (Feet): 5 Height (Inches): 5.00 Weight (Pounds): 243 Objective General Appearance: Alert - no distress Lines, tubes and drains: peripheral HEENT: normocephalic, atraumatic Neck: non-tender, normal alignment Respiratory/Chest: chest wall non-tender, lungs clear, normal breath sounds Cardiovascular/Chest: normal rate, regular rhythm Abdomen: normal bowel sounds, non tender, soft Extremities: non-tender, normal inspection Skin Exam: normal pigmentation, no diaphoresis Gerson Salgado M.D. Jul 07, 2019 12:42
--- NOTE | 2019-07-07 14:29 | NUR ---
DISCHARGED PLANNED: PATIENT ACCEPTED TO [facility] T: [phone] FOR NURSE TO NURSE REPORT [facility] PICKUP TIME 330PM FAMILY AWARE OF TRANSFER
--- NOTE | 2019-07-07 15:27 | Discharge Summary ---
Discharge Summary Hospital Course Date of Admission Jun 15, 2019 at 21:56 Date of Discharge 07/07/2019 Admitting Diagnosis hypotension/NVD HPI Rubens Gonzalez is a 73 year old male who was admitted on Jun 15, 2019 at 21:56 for Hypotension/Nausea, Vomiting, [facility] Hospital Course 73 y/o M with PMH HTN, IDDM, ? history of CVA who presented to [facility] with nausea,vomiting. On admission pt w/acute respiratory failure, initially admitted to ICU, was placed on BiPAP, pt improved and now on NC. Pt was found to have Klebsiella bacteremia, ID consulted and pt was started on zosyn and zyvox. WBC's elevated on 06/25 for which repeat BCx were drawn which are negative at this time. Pt w/elevated lipase, found to have acute pancreatitis, CT abd revealed pancreatic pseudocyst for which GI was consulted, s/p EUS. stress test showing nonreversible ischemia. Over prolonged hospitalization, he became quite weak and PT recommended further rehab. Today, he is being d/c'ed to [facility] for further rehab. See below for problem list. #Klebsiella bacteremia #Leukocytosis - resolved #? infected pancreatic pseudocyst, ? aspiration pna/HCAP vs atx, arf -BCx on admission pt was found to be in septic shock, now resolved, BCx + for klebsiella bacteremia -Repeat BCx negative. -CT A/P on 06/25: with mild improvement of pseudocyst. no abscess or acute pathology identified. -indium scan negative -s/p abx per ID. No more indicated. #Chronic systolic CHF, HFrEF 40% #NSTEMI, type 2 TTE with EF ~40% Continue MTP 25 BID Cardiology consult appreciated. started on Aldactone Stress test without reversible ischemia #acute hypoxic resp failure without hypercarbia - stable off BiPAP continue inhaled bronchodilators Pulm/CCM following bipap prn and QHS - patient noncompliant #acute kidney injury on CKD, possible ATN - resolved #CKD3 s/p IV hydration avoid nephrotoxic meds -now at baseline ~1.3-1.5 #acute pancreatitis #Pancreatic Pseudocyst low fat diet PPI Pancreaolipase s/p EUS per GI (07/03) with gastritis, pancreatic pseudocyst again seen. #Thrombocytopenia - resolved #Rule out HIT etiology likely multifactorial, likely due to sepsis cont to monitor daily CBC Hematology following - ok for DVT ppx w/heparin or lovenox when plts >50k #Hypokalemia, hypomagnesemia - resolved replaced, cont. to monitor, replace PRN #lactic acidosis #HTN cont Norvasc #DM type 2 ISS #Septic shock - resolved on admission pt was in ICU, now improved off pressors cont. to monitor Discharge Medications Continued Medications: Acarbose* (Precose*) 50 Mg Tablet 50 MG ORAL THREE TIMES A DAY for unk, TAB 0 Refills Amlodipine Besylate* (Amlodipine Besylate*) 10 Mg Tablet 10 MG ORAL DAILY for HTN, TAB Aspirin (Court Chewable) 81 Mg Tab.chew 81 MG PO for cardiac, TAB Clopidogrel* (Clopidogrel*) 75 Mg Tablet 75 MG ORAL DAILY for unk, TAB Folic Acid* (Folic Acid*) 1 Mg Tablet 1 MG ORAL DAILY for unk, TAB Lisinopril (Lisinopril*) 20 Mg Tablet 40 MG ORAL DAILY for HTN, TAB Metformin Hcl* (Metformin Hcl*) 500 Mg Tablet 500 MG ORAL TWICE A DAY for DM, TAB Simvastatin (Zocor) 5 Mg Tablet 5 MG ORAL BEDTIME for cholesterol, TAB Discharge Condition Upon Discharge: stable Discharge Vital Signs Last Vital Signs Date Time Temp Pulse Resp B/P (MAP) Pulse Ox O2 Delivery O2 Flow Rate FiO2 07/07/19 12:00 98.0 111 20 138/74 (95) 92 07/07/19 09:00 Room Air 07/07/19 07:36 21 07/04/19 11:25 6 Discharge Disposition Patient was discharged to [facility] Discharge Diagnoses: (1) Elevated troponin (2) Left upper quadrant abdominal mass (3) Acute pancreatitis (4) Renal failure (5) Hypoxia (6) Sepsis (7) Acute kidney injury superimposed on CKD (8) low platelet (9) Pancreatic pseudocyst Ama Mallory M.D. Jul 07, 2019 15:27
--- NOTE | 2019-07-07 15:27 | NUR ---
NURSE NOTES: called [facility] to give report and spoke to Shirley.
--- NOTE | 2019-07-07 15:47 | Surgery Progress Note ---
Surgery Progress Note Subjective Symptoms: improved Objective Last 24 Hour Vital Signs Date Time Temp Pulse Resp B/P (MAP) Pulse Ox O2 Delivery O2 Flow Rate FiO2 07/07/19 12:00 98.0 111 20 138/74 (95) 92 07/07/19 09:06 94 150/69 07/07/19 09:05 94 150/69 07/07/19 09:04 150/69 07/07/19 09:00 Room Air 07/07/19 08:00 97.8 94 20 150/69 (96) 92 07/07/19 07:36 87 18 93 Room Air 21 07/07/19 04:00 98.3 89 23 151/76 (101) 93 07/07/19 00:00 98.1 85 22 155/67 (96) 92 07/06/19 22:20 90 166/73 07/06/19 20:55 Room Air 07/06/19 20:00 98.1 90 24 166/73 (104) 95 07/06/19 16:00 98.0 74 18 144/77 (99) 95 I&O Intake and Output 07/06/19 07/07/19 19:00 07:00 Intake Total 1220 ml 480 ml Output Total 1000 ml 1000 ml Balance 220 ml -520 ml Intake Oral 1220 ml 480 ml Output Urine Total 1000 ml 1000 ml # Bowel Movements 1 1 Dressing: dry Wound: clean Drains: none Cardiovascular: RSR Respiratory: clear Abdomen: non-tender, present bowel sounds Extremities: no tenderness, no cyanosis Plan Problems: (1) Sacral decubitus ulcer Assessment & Plan: Patient identified to have a stage II sacral decubitus ulcer as well as incontinence associated dermatitis in the surrounding areas. Patient with diarrhea and sometimes sits for prolonged period times in stool. He has been changes frequently as possible by nursing staff and his been instructed to let staff know when incontinence so that they can assist him in changing. A is seen at bedside today with family available. We discussed current status and reviewed the wound together. We evaluated it cleaned and applied new dressings. We discussed the formation the etiology and the prognosis. Patient is able to move on his side on his own and is able to move in bed. He states he lays comfortably on his back but is instructed to return as much as possible. I have told him that the nursing staff and even myself and my team will assist him with turning as much as possible but given the fact that he is able to move on his own it would be strongly advised to turn as often as possible to alleviate pressure on his wound or develop new wounds. I explained to them that in laying in 1 position for prolonged period time can cause worsening cubitus ulcers or new ulcers to form. Long session was had with the patient and family and care plan was initiated. Patient is very amenable to care plan and cooperative. We will continue to monitor while inpatient and ensure improvemen Pt presents with two partial thickness pressure injuries R and L buttocks with surrounding Moisture Associated Skin Damage Partial thickness pressure injury R buttocks (L)2.2cm x (W)1cm. Base of wound is moist and viable with loose skin flap along edges. No odor or exudate. Periwound erythematous with denuded skin. Partial thickness pressure injury L buttocks. Base of wound is moist and viable. Edges are macerated. Non-blanching erythema with moisture denudement periwound.No exudate noted(L)2cm x (W)3cm.Scrotum erythematous with scattered satellite lesions at base of Scrotum. Both heels are boggy with non-blanching erythema. Pt denied tenderness when each heel individually palpated. Pt noted to be incontinent of loose B.M at start of visit. Pt also demonstrated ability to reposition self in bed but according to staff on unit pt is non- compliant and lacks motivation. PT informed of pressure injuries R and L buttocks , erythematous Scrotum and risks for further Skin decline. Pt educated on comorbidities that can contribute to wounds declining. Instructed pt to call for asst with toileting and encouraged to frequently reposition ,at least hourly while in bed. Pt declined to respond to verbal instructions. Spouse visited and updated on skin breakdown . Spouse also educated of risks for further skin breakdown if pt continues to be non-compliant with repositioning and toileting. I had a long discussion at bedside today 06/30/2019 with the patient and his . I explained to patient the above findings again and we reviewed the decubitus formation and goals and plans of care for prevention as well as improvement. I have asked patient to help mobilize himself and he was able to turn to his left side following to the right side. Given his size it does take a little bit of effort but it is possible and he is able to do it on his own. I explained to patient how important it is to continue current side specially as he can do it on its own. Patient states he just wants to relax and be comfortable on his back. I explained to them how the above findings of formed and how they may worsen if he continues to do so. Patient is clearly competent and expresses understanding. I explained the patient that it would be very important for him to continue with the plan of care that we have discussed. Patient states that it should be someone at all times to help him with these things and explained to patient that nursing staff and myself are willing and helping as much as necessary but he is capable and we strongly recommend that since he has ability it would be strongly recommended for him to offload pressure as much as possible. Tx.Plan: Apply Moisture Barrier Paste to R and L buttocks. Cover with Optifoam drsg. Change every 3 days and prn. Apply Moisture Barrier Paste to Scrotum with each incontinence care. Encourage to reposition self at least hourly while in bed. Apply Cavilon Skin Barrier to each heels. Cover each heel with OPtifoam drsg. Change every 7 days and prn. Off-load heels with Pillow. (2) Incontinence associated dermatitis (3) Left upper quadrant abdominal mass Assessment & Plan: Telemetry pancreatic mass cystic large with infiltration around it worsening on recent CT. Discussed with GI and agree will need EUS but given elevated troponins and current cardiac status will await clearance and improvement prior to proceeding with EUS. The myocardial perfusion scan demonstrates large perfusion defect involving the inferior wall and apex consistent with a myocardial infarct. This extends into the inferolateral segment. IMPRESSION: Inferior and inferolateral wall infarct including the apex. No definite evidence of myocardial ischemia. Note: The study was limited because of difficulty with gating due to the patient 's irregular heart rhythm. LVEF also could not be calculated. (4) Acute pancreatitis Assessment & Plan: Lungs: Small posterior basilar pleural effusions are demonstrated. Consolidation versus atelectasis involving the lung bases bilaterally. Similar appearance on the prior occasion.. Liver: Unremarkable Gallbladder/biliary system: Gallbladder is absent. No biliary ductal dilatation seen.. Spleen: Unremarkable Pancreas: Pancreas is atrophic. Once again there is a large approximately 10 cm well-circumscribed cystic mass in the left upper quadrant associated with the tail the pancreas. This has been previously described and was seen on the last 2 CT examinations. This cyst is questionably slightly smaller. There is however moderately increased soft tissue stranding in the area surrounding the cyst anteriorly indicative of inflammation. In addition part of the splenic flexure which abuts the cyst and traverses the area of inflammation shows focal dilatation likely a localized inflammatory response or localized ileus. The degree of inflammation has significantly increased and is worse than both the prior occasions on 06/20/2019 or on 06/15/2019. In addition the degree of anasarca has increased. There is a small amount of free fluid within the abdomen which has also increased slightly since the last study. Kidneys/Bladder: No definite stone or hydronephrosis are identified. There is a probable right renal cyst again noted. The urinary bladder is nondistended. Rivero catheter in good position. Adrenal glands: Unremarkable Bowel: Unremarkable. Aorta/IVC: Aortoiliac calcifications are noted consistent with atherosclerotic disease. Peritoneum: There is mild free fluid present within the peritoneal cavity.. Bones: There is narrowing of intervertebral discs and accompanying endplate osteophyte formation. Hypertrophied facet joints also demonstrated. Generalized osteopenia noted. Moderate osteoarthritis of both hips demonstrated. IMPRESSION: Moderate increased inflammation surrounding a 10 cm cystic mass in the left upper quadrant. The cystic mass may be slightly smaller than on the previous CT examinations performed 06/20/2019 and 06/15/2019. 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 Cystic neoplasm is not excluded. Persistent small bilateral pleural effusions and underlying consolidation/atelectasis. Trace ascites. Worsening anasarca. Status post cholecystectomy. Arterial vascular disease. Benitez Sheppard Jul 07, 2019 15:47
--- NOTE | 2019-07-07 16:43 | NUR ---
NURSE NOTES:Patient discharged and left stable with EMS, belongings list signed and belongings accounted for. IV removed no bleeding or hematoma noted, contreras also removed with no issues.
== END 2019-07-07 16:43 | disposition short-term general hospital (02) | DRG 871 ==
LOC: EDBD 19:52 → EDBEDREQSVC 20:14 → EMR 20:20 → ICU 21:56 → EDBEDREQ 22:22 → EDBEDREQTM 22:22 → EDBEDREQSVC 22:22 → EDBEDREQ 22:56 → ICU 06-16 00:48 → 2W 06-20 17:12 → 2E 06-24 18:54 → 4E 07-02 18:29
PROC: B548ZZA Ultrasonography of Superior Vena Cava, Guidance (ICD-10-PCS; principal; 2019-06-16)
PROC: 02HV33Z Insertion of Infusion Device into Superior Vena Cava, Percutaneous Approach (ICD-10-PCS; principal; 2019-06-16)
PROC: 0DD78ZX Extraction of Stomach, Pylorus, Via Natural or Artificial Opening Endoscopic, Diagnostic (ICD-10-PCS; 2019-07-04 09:00)
DX: A41.9 Sepsis, unspecified organism (principal); K85.90 Acute pancreatitis without necrosis or infection, unspecified; R65.21 Severe sepsis with septic shock; I21.A1 Myocardial infarction type 2; N17.0 Acute kidney failure with tubular necrosis; J96.01 Acute respiratory failure with hypoxia; J18.9 Pneumonia, unspecified organism; N39.0 Urinary tract infection, site not specified; I13.0 Hypertensive heart and chronic kidney disease with heart failure and stage 1 through stage 4 chronic kidney disease, or unspecified chronic kidney disease; I50.22 Chronic systolic (congestive) heart failure; K86.3 Pseudocyst of pancreas; N18.9 Chronic kidney disease, unspecified; E11.22 Type 2 diabetes mellitus with diabetic chronic kidney disease; Z72.0 Tobacco use; Z79.4 Long term (current) use of insulin; Z86.73 Personal history of transient ischemic attack (TIA), and cerebral infarction without residual deficits; E87.6 Hypokalemia; E83.42 Hypomagnesemia; D64.9 Anemia, unspecified; D69.6 Thrombocytopenia, unspecified; L89.152 Pressure ulcer of sacral region, stage 2; L30.8 Other specified dermatitis; R32 Unspecified urinary incontinence; K20.9 Esophagitis, unspecified; R19.7 Diarrhea, unspecified; K29.70 Gastritis, unspecified, without bleeding
CPT/HCPCS: 36415; 36569; 36600; 71045; 71250; 74018; 74176; 76700; 76937; 78451; 78452; 78579; 78580; 80048; 80053; 80076; 80202; 81001; 81003; 82044; 82150; 82164; 82270; 82306; 82330; 82550; 82570; 82607; 82728; 82746; 82803; 82962; 83540; 83550; 83605; 83690; 83735; 83880; 83970; 84100; 84300; 84478; 84484; 85007; 85025; 85379; 85610; 85730; 86703; 86705; 86709; 86738; 86803; 86850; 86900; 86901; 87040; 87045; 87070; 87081; 87086; 87181; 87205; 87324; 87340; 93005; 93017; 93306; 93970; 94003; 94150; 94640; 94660; 94664; 96361; 96365; 96368; 96375; 99291; A9503; J1815; J2250; J2370; J2765; J2785; J3490; J7030; J7620; J8499